=== PATIENT | female | born 1955 | race African-American/Black ===

== ENCOUNTER 2018-06-14 09:55 | Emergency (ER) | payer BC, MEDICARE ==
[~2018-06-14] VITALS: Ht 152.4 cm; Wt 52.2 kg
[2018-06-14 10:48] LABS: INFLUENZA A PATIENT NEGATIVE (NEGATIVE); INFLUENZA B PATIENT NEGATIVE (NEGATIVE)
--- NOTE | 2018-06-14 10:51 | PHYS DOC ---
Past Medical History Past Medical History: Hypertension, Other Additional Past Medical Histor: chronic left knee pain,bld transfusion Past Surgical History: Other Additional Past Surgical Histo: D&C Alcohol Use: None Drug Use: None Adult General Chief Complaint Chief Complaint: COUGH HPI HPI Patient is a 62 year old female with history of hypertension, current smoker, who presents to the ED today complaining of a productive cough with yellow sputum, nasal congestion, symptoms for 2 weeks. Patient is also complaining of subjective fevers. Patient denies any chest pain or shortness of breath. Patient is in the ED with a family member who states patient has followed up with her PCP who did nothing for her. Review of Systems Review of Systems Constitutional: Reports subjective fevers, denies chills [] Eyes: Denies change in visual acuity, redness, or eye pain [] HENT: Reports nasal congestion, denies sore throat [] Respiratory: Reports productive cough, denies shortness of breath [] Cardiovascular: No additional information not addressed in HPI [] GI: Denies abdominal pain, nausea, vomiting, bloody stools or diarrhea [] : Denies dysuria or hematuria [] Musculoskeletal: Denies back pain or joint pain [] Integument: Denies rash or skin lesions [] Neurologic: Denies headache, focal weakness or sensory changes [] All other systems were reviewed and found to be within normal limits, except as documented in this note. Current Medications Current Medications Current Medications Medications (Trade) Dose Ordered Sig/Karen Start Time Stop Time Status Last Admin Dose Admin Albuterol/ Ipratropium (Duoneb) 3 ml 1X ONCE 06/14/18 11:30 06/14/18 11:31 DC 06/14/18 11:47 3 ML Benzonatate (Tessalon Perle) 100 mg 1X ONCE 06/14/18 11:30 06/14/18 11:31 DC Ibuprofen (Motrin) 600 mg 1X ONCE 06/14/18 11:45 06/14/18 11:46 DC Oxycodone/ Acetaminophen (Percocet 7.5/ 325) 1 tab 1X ONCE 06/14/18 11:45 06/14/18 11:46 DC Prednisone (Prednisone) 60 mg 1X ONCE 06/14/18 11:30 06/14/18 11:31 DC Allergies Allergies Allergies Coded Allergies Type Severity Reaction Last Updated Verified Penicillins Allergy Severe anaphlaxis 3/17/19 Yes Physical Exam Physical Exam Constitutional: Well developed, well nourished, no acute distress, non-toxic appearance. [] HENT: Exterior nose is erythematous from wiping. Normocephalic, atraumatic, bilateral external ears normal, oropharynx moist, no oral exudates, patient sounds congested nasally. Mild maxillary and frontal sinus tenderness. Eyes: PERRLA, EOMI, conjunctiva normal, no discharge. [] Neck: Normal range of motion, no tenderness, supple, no stridor. [] Cardiovascular:Heart rate regular rhythm, no murmur [] Lungs & Thorax: Tight chest, patient not moving as much air as expected Abdomen: Bowel sounds normal, soft, no tenderness, no masses, no pulsatile masses. [] Skin: Warm, dry, no erythema, no rash. [] Back: No tenderness, no CVA tenderness. [] Extremities: No tenderness, no cyanosis, no clubbing, ROM intact, no edema. [] Neurologic: Alert and oriented X 3, normal motor function, normal sensory function, no focal deficits noted. [] Psychologic: Affect normal, judgement normal, mood normal. [] Current Patient Data Vital Signs Vital Signs Date Time Temp Pulse Resp B/P (MAP) Pulse Ox O2 Delivery O2 Flow Rate FiO2 06/14/18 11:49 93 Room Air 06/14/18 10:00 99.7 93 20 177/77 (110) 99.7 Lab Values Laboratory Tests Test 06/14/18 10:10 Influenza Type A Antigen Negative (NEGATIVE) Influenza Type B Antigen Negative (NEGATIVE) EKG EKG [] Radiology/Procedures Radiology/Procedures []PROCEDURE: CHEST PA & LATERAL Chest, PA and Lateral: Technique: PA and lateral views of the chest were obtained. History: Cough, congestion. Comparison: 10/14/2016. Findings: The heart and pulmonary vasculature appear within normal limits. The lungs are clear. Tortuous appearing aorta.. Impression: No acute chest process is seen. Electronically signed by: Ron Mcdonald MD (06/14/2018 10:46 AM) [facility] DICTATED and SIGNED BY: RON MCDONALD MD DATE: 06/14/18 1046 Course & Med Decision Making Course & Med Decision Making Pertinent Labs and Imaging studies reviewed. (See chart for details) This is a 62-year-old female patient presenting to the ED today with cough and nasal congestion symptoms for 2 weeks. On arrival to the ED patient's doctor is complaining the primary care doctor was not taking care of patient symptoms. She states he did not do anything for patient. She continues to complain stating she feels will not do anything either. Patient has a slight temperature of 99.7, she has a running nose on physical exam, chest x-ray is negative for any acute findings, her O2 sats were around 93 % on room air, patient states this is a chronic issue likely from COPD from smoking. Negative influenza A or B. I ordered a DuoNeb treatment on patient, ordered Tessalon Perles. Patient's daughter was refusing stating they do not want patient to be given any of his medications, she states she wants patient to be given a cough syrup prescription strength. [facility] shows patient filled RX for oxycodone 7.5mg/325mg 30 day supply around 02/2019. Informed patient and daughter we will not give her any more sedating prescription cough syrups considering she already has oxycodone at home. Recommended wpcs-[id number]-[id number] remedies. Given prescription for Augmentin for sinusitis considering her symptoms have been going on for this long she likely has acute sinusitis. Discharged to home follow-up with the PCP. Remberto Disclaimer Remberto Disclaimer This electronic medical record was generated, in whole or in part, using a voice recognition dictation system. Departure Departure Impression: Primary Impression: Acute sinusitis Additional Impressions: Acute bronchitis Fever Smoking addiction Disposition: HOME, SELF-CARE Condition: STABLE Referrals: ALEXIS CORRALES MD (PCP) Follow-up if the course of this week or next week Patient Instructions: Acute Bronchitis, Sinusitis Additional Instructions: You were evaluated in the emergency room, your chest x-ray was negative for any acute findings. You likely have Acute/ bronchitis and sinusitis. Use the prescribed medications as ordered. Follow-up with your own doctor in the course of this week. Consider smoking cessation Scripts Albuterol Sulfate (VENTOLIN HFA INHALER) 18 Gm Hfa.aer.ad 2 PUFF INH Q4HRS for FOR ASTHMA, #1 INHALER 0 Refills Prov: PRO LLOYD APRN 06/14/18 Prednisone (PREDNISONE) 50 Mg Tablet 1 TAB PO DAILY, #5 TAB Prov: PRO LLOYD APRN 06/14/18 Clindamycin Hcl (CLINDAMYCIN HCL) 300 Mg Capsule 1 CAP PO TID, #30 CAP Prov: PRO LLOYD APRN 06/14/18 Benzonatate (TESSALON PERLE) 100 Mg Capsule 1 CAP PO TID, #30 CAP Prov: PRO LLOYD APRN 06/14/18 Fluticasone Propionate (Flonase Allergy Relief) 9.9 Ml Piercy.susp 2 SPRAYS NS DAILY, #1 BOTTLE Prov: PRO LLOYD APRN 06/14/18 Problem Qualifiers Primary Impression: Acute sinusitis Sinusitis location: maxillary Recurrence: non-recurrent Qualified Codes: J01.00 - Acute maxillary sinusitis, unspecified Additional Impressions: Acute bronchitis Bronchitis organism: unspecified organism Qualified Codes: J20.9 - Acute bronchitis, unspecified Fever Fever type: unspecified Qualified Codes: R50.9 - Fever, unspecified PRO LLOYD APRN Jun 14, 2018 10:50
[2018-06-14] MEDS ORDERED: IPRATRPIUM/ALBUTEROL 0.5/2.5MG 3 ML NEBU. NEB ONE (11:30)
[2018-06-14] MEDS ORDERED: BENZONATATE 100 MG CAPSULE. PO ONE (11:30)
[2018-06-14] MEDS ORDERED: predniSONE 20 MG TABLET PO ONE (11:30)
[2018-06-14] MEDS ORDERED: IBUPROFEN 200 MG TABLET. PO ONE (11:45)
[2018-06-14] MEDS ORDERED: oxyCODONE/APAP 7.5/325 1 TAB TABLET PO ONE (11:45)
[2018-06-14 12:04] VITALS: BP 155/77
[2018-06-14] MEDS ORDERED: PRED50TA PO (12:07)
[2018-06-14] MEDS ORDERED: BENZ100C PO (12:07)
[2018-06-14] MEDS ORDERED: CLIN300C8 PO (12:07)
[2018-06-14] MEDS ORDERED: FLUT9.9S NS (12:07)
[2018-06-14] MEDS ORDERED: VENTOLIN HFA18 GM INH (12:07)
[2018-07-25] MEDS ORDERED: METO50TA6 PO (09:56)
[2018-07-25] MEDS ORDERED: Nicotine 21MG TD (09:56)
[2018-07-25] MEDS ORDERED: ASPI-612 PO (09:56)
[2018-07-25] MEDS ORDERED: METH-364 PO (09:56)
[2018-07-26] MEDS ORDERED: CIPR500T94 PO (11:18)
== END 2018-06-14 12:20 | disposition home or self-care (01) ==
LOC: ER 09:55
DX: J01.00 Acute maxillary sinusitis, unspecified (principal); J20.9 Acute bronchitis, unspecified; I10 Essential (primary) hypertension; G89.29 Other chronic pain; Z88.0 Allergy status to penicillin
CPT/HCPCS: 71046; 87804; 94640; 99284; J7512; J7620

== ENCOUNTER 2018-07-23 12:33 | Inpatient (IN) | payer BC ==
[~2018-07-23] VITALS: Ht 180.3 cm; Wt 57.6 kg
[~2018-07-23 12:33] MED LIST: BENZ100C PO; CLIN300C8 PO; FLUT9.9S NS; PRED50TA PO; VENTOLIN HFA18 GM INH
[2018-07-23] MEDS ORDERED: IV NORMAL SALINE 1000ML BAG 1,000 ML IV ONE ×3 (13:30→19:30)
[2018-07-23 13:36] LABS: BILIRUBIN,URINE SMALL (NEG); CLARITY,URINE TURBID; COLOR,URINE AMBER; NITRITE,URINE NEGATIVE (NEG); PH,URINE 5.5; PROTEIN,URINE 100 mg/dL (NEG-TRACE)
[2018-07-23 13:47] LABS: BACTERIA,URINE MANY /HPF (0-FEW); SQUAMOUS EPITHELIAL CELL,UR FEW /LPF; WBC,URINE TNTC /HPF (0-4)
--- NOTE | 2018-07-23 13:50 | RAD ---
CHEST AP ONLY History: COUGH X 1 MONTH. Comparison with June 14, 2018 The heart size is stable. Aorta remains tortuous. No pneumothorax or pleural effusion. No consolidating infiltrate is identified. Hilar morphology appears stable. IMPRESSION: Stable exam, no acute consolidating infiltrate. Electronically signed by: Hola Roblero MD (07/23/2018 1:47 PM) [facility]
[2018-07-23 14:30] LABS: BASO % 0 % (0-3); EOS % 0 % (0-3); HEMATOCRIT 37.2 % (36.0-47.0); HEMOGLOBIN 12.2 g/dL (12.0-15.5); LYMPH # 1.2 x10^3/uL (1.0-4.8); LYMPH % 10 % (24-48); MEAN CORPUSCULAR HEMOGLOBIN 28 pg (25-35); MEAN CORPUSCULAR HGB CONC 33 g/dL (31-37); MEAN CORPUSCULAR VOLUME 85 fL (79-100); MONO # 1.1 x10^3/uL (0.0-1.1); MONO % 9 % (0-9); NEUT # 9.7 x10^3uL (1.8-7.7); NEUT % 81 % (31-73); PLATELET COUNT 115 x10^3/uL (140-400); RED BLOOD COUNT 4.36 x10^6/uL (3.50-5.40); RED CELL DISTRIBUTION WIDTH 14.6 % (11.5-14.5)
[2018-07-23 14:51] LABS: ALBUMIN 2.4 g/dL (3.4-5.0); ALBUMIN/GLOBULIN RATIO 0.5 (1.0-1.7); CREATININE 1.1 mg/dL (0.6-1.0); GFR 60.7; MAGNESIUM 1.7 mg/dL (1.8-2.4); TOTAL BILIRUBIN 0.8 mg/dL (0.2-1.0); TOTAL PROTEIN 7.5 g/dL (6.4-8.2)
[2018-07-23 14:55] LABS: POTASSIUM 2.6 mmol/L (3.5-5.1)
--- NOTE | 2018-07-23 15:09 | EKG ---
[facility] [address] [place] [address] Test Date: 2018-07-23 Test Time: 13:53:47 Pat Name: JANNET BOBBY Department: Room: Gender: F Clinical Case Manager: : 1955 Requested By: TRACY THOMAS Order Number: [id number] Reading MD: Dillan Keys Measurements Intervals [place] Rate: 128 P: -10 KS: 134 QRS: -41 QRSD: 96 T: 105 QT: 282 QTc: 415 Interpretive Statements SINUS TACHYCARDIA ATRIAL PREMATURE COMPLEX(ES) ABNORMAL LEFT AXIS DEVIATION QRS(T) CONTOUR ABNORMALITY CONSIDER ANTEROSEPTAL MYOCARDIAL DAMAGE T ABNORMALITY IN LATERAL LEADS ABNORMAL ECG RI6.01 Compared to ECG 01/23/2013 20:51:53 T-wave abnormality now present Atrial abnormality no longer present Electronically Signed On 07-29-2018 11:54:26 CDT by Dillan Keys
[2018-07-23] MEDS ORDERED: POTASSIUM CHLORIDE 20 MEQ TABLET.ER. PO ONE ×3 (15:30→17:30)
[2018-07-23] MEDS ORDERED: cefTRIAXone IV Push 1 GM VIAL. IVP ONE (15:30)
[2018-07-23] MEDS ORDERED: fentaNYL PF VIAL 100 MCG/2 ML VIAL IV ONE (16:15)
--- NOTE | 2018-07-23 16:28 | PHYS DOC ---
Past Medical History Past Medical History: Hypertension, Other Additional Past Medical Histor: chronic left knee pain,bld transfusion (TRACY THOMAS APRN) Past Surgical History: Other Additional Past Surgical Histo: D&C (TRACY THOMAS APRN) Alcohol Use: None Drug Use: None (TRACY THOMAS APRN) Adult General Chief Complaint Chief Complaint: DIARRHEA HPI HPI 63 y/o female presents to ER with her dgtr for c/o 1 mo. hx cold like sxs and 2 wk hx of diarrhea, fatigue, and urinary freq. Per dgtr pt's sxs have been gradually worsening she denies pt with change in LOC/mental status or pt w/falls. Pt reports she feels weak but is denying any SOA, CP, abd pain, or LOPES/dizziness. (TRACY THOMAS APRN) Review of Systems Review of Systems Constitutional: Denies fever or chills. Reports gen. fatigue and bodyaches Eyes: Denies change in visual acuity, redness, or eye pain [] HENT: Denies sore throat. Reports clear sinus drainage Respiratory: Denies shortness of breath. Reports nonprod. cough Cardiovascular: Denies CP/palpitations GI: Denies abdominal pain, nausea, vomiting, or bloody stools. Reports diarrhea : Denies dysuria or hematuria. Reports urinary freq. Musculoskeletal: Denies back/neck pain. Denies joint swelling/cramps Integument: Denies rash or skin lesions [] Neurologic: Denies headache, focal weakness or sensory changes. Denies dizziness Endocrine: Denies polyuria or polydipsia [] All other systems were reviewed and found to be within normal limits, except as documented in this note. (TRACY THOMAS APRN) Current Medications Current Medications Current Medications Medications (Trade) Dose Ordered Sig/Karen Start Time Stop Time Status Last Admin Dose Admin Ceftriaxone Sodium (Rocephin) 1 gm 1X ONCE 07/23/18 15:30 07/23/18 15:31 Cancel Potassium Chloride (Klor-Con) 40 meq 1X ONCE 07/23/18 15:30 07/23/18 15:38 DC 07/23/18 16:01 40 MEQ Sodium Chloride 1,000 ml @ 1,000 mls/hr 1X ONCE 07/23/18 13:30 07/23/18 14:29 DC 07/23/18 14:17 1,000 MLS/HR (MARY PERES MD) Allergies Allergies Allergies Coded Allergies Type Severity Reaction Last Updated Verified Penicillins Allergy Severe anaphlaxis 06/14/18 Yes (MARY PERES MD) Physical Exam Physical Exam Constitutional: Fatigued appearance, no acute distress, non-toxic appearance. Smiling during exam/discussion HENT: Normocephalic, atraumatic, bilateral ears normal, mucous membranes pink/dry, no oral exudates, nose normal. [] Eyes: PERRLA, no nystagmus, conjunctiva normal, no discharge. [] Neck: Normal range of motion, no tenderness, supple, no stridor. [] Cardiovascular: Heart rate regular rhythm, no murmur [] Lungs & Thorax: Bilateral breath sounds clear to auscultation- resp. equal/nonlabored Abdomen: Bowel sounds normal, soft- no distention/rigidity, no tenderness, no masses, no pulsatile masses. [] Skin: Warm, dry, no erythema, no rash. [] Back: No tenderness, no CVA tenderness. [] Extremities: No tenderness, no cyanosis, no clubbing, ROM intact, no edema. [] Neurologic: Alert and oriented X 3, normal motor function, normal sensory function, no focal deficits noted. [] Psychologic: Affect normal, judgement normal, mood normal. [] (REFFITT,TRACY Hilliard APRN) Current Patient Data Vital Signs Vital Signs Date Time Temp Pulse Resp B/P (MAP) Pulse Ox O2 Delivery O2 Flow Rate FiO2 07/23/18 16:00 122 149/66 (93) 98 Room Air 07/23/18 12:33 99.1 15 99.1 (MARY PERES MD) Lab Values Laboratory Tests Test 07/23/18 13:13 07/23/18 14:00 Urine Collection Type Void Urine Color [place] Urine Clarity Turbid Urine pH 5.5 Urine Specific [place] 1.015 Urine Protein 100 mg/dL (NEG-TRACE) Urine Glucose (UA) Negative mg/dL (NEG) Urine Ketones (Stick) Trace mg/dL (NEG) Urine Blood Moderate (NEG) Urine Nitrite Negative (NEG) Urine Bilirubin Small (NEG) Urine Urobilinogen Dipstick 1.0 mg/dL (0.2 mg/dL) Urine Leukocyte Esterase Large (NEG) Urine RBC 6-10 /HPF (0-2) Urine WBC Tntc /HPF (0-4) Urine Squamous Epithelial Cells Few /LPF Urine Bacteria Many /HPF (0-FEW) Urine Mucus Marked /LPF White Blood Count 12.0 x10^3/uL (4.0-11.0) H Red Blood Count 4.36 x10^6/uL (3.50-5.40) Hemoglobin 12.2 g/dL (12.0-15.5) Hematocrit 37.2 % (36.0-47.0) Mean Corpuscular Volume 85 fL (79-100) Mean Corpuscular Hemoglobin 28 pg (25-35) Mean Corpuscular Hemoglobin Concent 33 g/dL (31-37) Red Cell Distribution Width 14.6 % (11.5-14.5) H Platelet Count 115 x10^3/uL (140-400) L Neutrophils (%) (Auto) 81 % (31-73) H Lymphocytes (%) (Auto) 10 % (24-48) L Monocytes (%) (Auto) 9 % (0-9) Eosinophils (%) (Auto) 0 % (0-3) Basophils (%) (Auto) 0 % (0-3) Neutrophils # (Auto) 9.7 x10^3uL (1.8-7.7) H Lymphocytes # (Auto) 1.2 x10^3/uL (1.0-4.8) Monocytes # (Auto) 1.1 x10^3/uL (0.0-1.1) Eosinophils # (Auto) 0.0 x10^3/uL (0.0-0.7) Basophils # (Auto) 0.0 x10^3/uL (0.0-0.2) Sodium Level 130 mmol/L (136-145) L Potassium Level 2.6 mmol/L (3.5-5.1) *L Chloride Level 92 mmol/L (98-107) L Carbon Dioxide Level 29 mmol/L (21-32) Anion Gap 9 (6-14) Blood Urea Nitrogen 27 mg/dL (7-20) H Creatinine 1.1 mg/dL (0.6-1.0) H Estimated GFR (Cockcroft-Gault) 60.7 BUN/Creatinine Ratio 25 (6-20) H Glucose Level 124 mg/dL (70-99) H Calcium Level 9.0 mg/dL (8.5-10.1) Magnesium Level 1.7 mg/dL (1.8-2.4) L Total Bilirubin 0.8 mg/dL (0.2-1.0) Aspartate Amino Transferase (AST) 20 U/L (15-37) Alanine Aminotransferase (ALT) 10 U/L (14-59) L Alkaline Phosphatase 79 U/L (46-116) Troponin I Quantitative 0.030 ng/mL (0.000-0.055) Total Protein 7.5 g/dL (6.4-8.2) Albumin 2.4 g/dL (3.4-5.0) L Albumin/Globulin Ratio 0.5 (1.0-1.7) L Thyroid Stimulating Hormone (TSH) < 0.007 uIU/mL (0.358-3.74) L Laboratory Tests 07/23/18 14:00 Laboratory Tests 07/23/18 14:00 Microbiology 07/23/18 Urine Culture - Final, Complete 07/23/18 Urine Culture Result 1 (SUMMER) - Final, Complete 07/23/18 Antimicrobic Susceptibility - Final, Complete (MARY PERES MD) EKG EKG EKG obtained 07/23/18 at [address] Perse Sinus tachycardia vs Afib RVR Rate 128 JESSICA elevation in V2-V3 w/no reciprocal depressions noted nonspecific T wave inversion in leads 1 and aVL Difficult to interpret d/t baseline artifact Repeat EKG obtained 07/23/18 at [address] Peres Similar to prior EKG rhythm- again difficult to interpret with more baseline artifact than the initial EKG. Rate elevated at 163 (TRACY THOMAS APRN) Radiology/Procedures Radiology/Procedures PROCEDURE: CHEST AP ONLY CHEST AP ONLY History: COUGH X 1 MONTH. Comparison with June 14, 2018 The heart size is stable. Aorta remains tortuous. No pneumothorax or pleural effusion. No consolidating infiltrate is identified. Hilar morphology appears stable. IMPRESSION: Stable exam, no acute consolidating infiltrate. Electronically signed by: Hola Roblero MD (07/23/2018 1:47 PM) [facility] DICTATED and SIGNED BY: HOLA ROBLERO MD DATE: 07/23/18 1347 (TRACY THOMAS APRN) Course & Med Decision Making Course & Med Decision Making Pertinent Labs and Imaging studies reviewed. (See chart for details) Test results discussed with pt and her family- discussed admit plans and all agreeable with plan. Pt remains nontoxic in appearance and in no distress during discussion. Will admit to hospitalist for further care. 1620: Spoke with Dr. Miner, hospitalist and discussed patient's case and admit plan. Pt had been evaluated for c/o fatigue/diarrhea. WBCs up at 12.0 K+ 2.6- which was replaced with 40 meq PO K+ in ER; EKG with no acute ST elevation/STEMI and troponin 0.030. Pt had UTI and was tx'd with IV Levaquin and was given IV flds. Chest xray with no acute findings. 1628: RN reports patient's heart rate elevated in the 140s to 160s. EKG is being obtained. Patient is denying any chest pain or shortness of air. On recheck patient has 102.7 temperature. Will start additional IV fluids and given dose of Tylenol for fever. Patient is smiling and in no distress. Patient's age he has considerable artifact questionable for A. fib with RVR per Dr. Peres. Patient had IV fluids started and she has had improvement in her heart rate to 110s. Pt is denying any complaints. Dr. Peres had initially wanted dose of Cardizem for elevated HR however with improved HR then wanted Cardizem held with pt having elevated temp. 1726: Spoke with Dr. Miner, hospitalist again regarding pt's change in HR- will admit to telemetry for further monitoring. (TRACY THOMAS APRN) Course & Med Decision Making The chart sent to me on 08/14/18 for evaluation. (MARY PERES MD) Dragon Disclaimer Dragon Disclaimer This electronic medical record was generated, in whole or in part, using a voice recognition dictation system. (TRACY THOMAS APRN) Departure Departure Impression: Primary Impression: Diarrhea Additional Impressions: Urinary tract infection Tachycardia Disposition: 09 ADMITTED INPATIENT Admitting Physician: Edel Miner (TRACY THOMAS APRN) Condition: STABLE Referrals: BALBIR SOLIZ MD (PCP) Scripts Ciprofloxacin Hcl (CIPRO) 500 Mg Tablet 1 TAB PO BID for uti, #14 TAB Prov: EDEL MINER MD 07/26/18 Metoprolol Tartrate (METOPROLOL TARTRATE) 50 Mg Tablet 50 MG PO BID for FOR HYPERTENSION, #60 TAB 0 Refills Prov: EDEL MINER MD 07/25/18 [Nicotine 21MG] 1 PATCH PATCH No Conflict Check 1 PATCH TD PRN DAILY PRN for SMOKING CESSATION MDD 1, #14 Prov: EDEL MINER MD 07/25/18 Methimazole (METHIMAZOLE) 10 Mg Tablet 10 MG PO BID for hyperthyroidism MDD 1, #60 TAB 2 Refills Prov: EDEL MINER MD 07/25/18 Aspirin (ASPIRIN EC) 81 Mg Tablet. 81 MG PO DAILYWBKFT for primary prevention MDD 1 for 60 Days, #60 TAB.SR Prov: EDEL MINER MD 07/25/18 Problem Qualifiers TRACY THOMAS APRN Jul 23, 2018 16:28 MARY PERES MD August 14, 2018 06:05
[2018-07-23] MEDS ORDERED: ACETAMINOPHEN 325 MG TABLET. PO ONE (16:30)
[2018-07-23] MEDS ORDERED: ONDANSETRON PF 4 MG/2 ML VIAL. ONE (16:39)
[2018-07-23] MEDS ORDERED: dilTIAZem IV PUSH 25 MG/5 ML VIAL ONE (16:40)
[2018-07-23] MEDS ORDERED: dilTIAZem IV PUSH 25 MG/5 ML VIAL IVP ONE (16:45)
[2018-07-23] MEDS ORDERED: NICOTINE 21MG PATCH. TD PRN (17:15)
[2018-07-23] MEDS ORDERED: TEMAZEPAM 7.5 MG CAPSULE PO PRN (17:15)
[2018-07-23] MEDS ORDERED: LOPERAMIDE 2 MG CAPSULE PO PRN (17:15)
--- NOTE | 2018-07-23 17:21 | PDOC1 ---
History and Physical Date of Admission Date of Admission DATE: 07/23/18 TIME: 17:16 Identification/Chief Complaint Chief Complaint Diarrhea for 2 weeks Source Source: Caregiver, Chart review, Patient History of Present Illness History of Present Illness NOt The best historian, 63-year-old female with history of asthma on inhalers. Brought in by younger family member because of diarrhea for 2 weeks, very weak. Admitted because of critical hypokalemia 2.6 hyponatremia 130 with leukocytosis 12. So far no diarrhea at ER. NO fevers. No emesis. Thought to have UTI by ER mid-level. She does smoke, trying to quit, mentions history of CHF but I do not see meds for CHF in home meds Crash cart at ER almost went to a heart rate of 170s, but after Cardizem converted to sinus tachycardia 130s. No known arrhythmia problems as per family relay She is not vomiting, interested to eat Hyperactive bowel sounds on exam Past Medical History Pulmonary: Asthma, Bronchitis Past Surgical History Past Surgical History: No pertinent history Family History Family History: Hypertension Social History Smoke: <1 pack per day ALCOHOL: none Drugs: None Current Medications Current Medications Current Medications Sodium Chloride 1,000 ml @ 1,000 mls/hr 1X ONCE IV Last administered on 06/30 08/16at 14:17; Start 07/23/18 at 13:30; Stop 07/23/18 at 14:29; Status DC Potassium Chloride (Klor-Con) 40 meq 1X ONCE PO Last administered on 07/23/18at 16:01; Start 07/23/18 at 15:30; Stop 07/23/18 at 15:38; Status DC Ceftriaxone Sodium (Rocephin) 1 gm 1X ONCE IVP ; Start 07/23/18 at 15:30; Stop 07/23/18 at 15:31; Status Cancel Levofloxacin/ Dextrose 150 ml @ 100 mls/hr 1X ONCE IV Last administered on 07/23/18at 16:51; Start 07/23/18 at 16:15; Stop 07/23/18 at 17:44 Sodium Chloride 1,000 ml @ 125 mls/hr 1X ONCE IV ; Start 07/23/18 at 16:15; Stop 07/24/18 at 00:14 Fentanyl Citrate (Fentanyl 2ml Vial) 25 mcg 1X ONCE IV Last administered on 07/23/18at 16:56; Start 07/23/18 at 16:15; Stop 07/23/18 at 16:16; Status DC Acetaminophen (Tylenol) 650 mg 1X ONCE PO Last administered on 07/23/18at 16:49; Start 07/23/18 at 16:30; Stop 07/23/18 at 16:39; Status DC Diltiazem HCl (Cardizem Iv Push) 10 mg 1X ONCE IVP ; Start 07/23/18 at 16:45; Stop 07/23/18 at 16:46; Status DC Ondansetron HCl (Zofran) 4 mg STK-MED ONCE .ROUTE ; Start 07/23/18 at 16:39; Stop 07/23/18 at 16:40; Status DC Diltiazem HCl (Cardizem Iv Push) 25 mg STK-MED ONCE .ROUTE ; Start 07/23/18 at 16:40; Stop 07/23/18 at 16:41; Status DC Potassium Chloride (Klor-Con) 40 meq 1X ONCE PO ; Start 07/23/18 at 17:30; Stop 07/23/18 at 17:31 Potassium Chloride (Klor-Con) 20 meq 1X ONCE PO ; Start 07/23/18 at 17:30; Stop 07/23/18 at 17:31 Loperamide HCl (Imodium) 2 mg PRN Q15MIN PRN PO DIARRHEA; Start 07/23/18 at 17:15 Active Scripts Active Ventolin Hfa Inhaler (Albuterol Sulfate) 18 Gm Hfa.aer.ad 2 Puff INH Q4HRS Prednisone 50 Mg Tablet 1 Tab PO DAILY Clindamycin Hcl 300 Mg Capsule 1 Cap PO TID Tessalon Perle (Benzonatate) 100 Mg Capsule 1 Cap PO TID Flonase Allergy Relief (Fluticasone Propionate) 9.9 Ml [place].susp 2 Sprays NS DAILY Allergies Allergies: Coded Allergies: Penicillins (Verified Allergy, Severe, anaphlaxis, 06/14/18) ROS Review of System As per history of present illness, the rest of ROS 14 point negative Physical Exam General: Alert, Oriented X3, Cooperative, No acute distress, Other (sallow skin, decreased skin turgor, senile skin turgor, minimal subcutaneous tissue) HEENT: Atraumatic, PERRLA, EOMI Lungs: Clear to auscultation, Normal air movement Heart: S1S2, RRR, no thrills, no rubs, no gallops, no murmurs Cardiovascular: S1 Abdomen: Soft, No tenderness, No hepatosplenomegaly, No masses, Other (hyper active bowel sounds) Rectal Exam: not examined Extremities: No clubbing, No cyanosis, No edema, Normal pulses, No tenderness/swelling Skin: No rashes, No breakdown, No significant lesion Neuro: Normal gait, Normal speech, Strength at 5/5 X4 ext, Normal tone, Sensation intact, Cranial nerves 3-12 NL, Reflexes 2+ Psych/Mental Status: Mental status NL, Mood NL Vitals Vitals Vital Signs Date Time Temp Pulse Resp B/P (MAP) Pulse Ox O2 Delivery O2 Flow Rate FiO2 07/23/18 16:56 28 92 Room Air 07/23/18 12:33 99.1 108 144/66 (92) 99.1 Labs Labs Laboratory Tests Test 07/23/18 13:13 07/23/18 14:00 Urine Collection Type Void Urine Color [place] Urine Clarity Turbid Urine pH 5.5 Urine Specific [place] 1.015 Urine Protein 100 mg/dL (NEG-TRACE) Urine Glucose (UA) Negative mg/dL (NEG) Urine Ketones (Stick) Trace mg/dL (NEG) Urine Blood Moderate (NEG) Urine Nitrite Negative (NEG) Urine Bilirubin Small (NEG) Urine Urobilinogen Dipstick 1.0 mg/dL (0.2 mg/dL) Urine Leukocyte Esterase Large (NEG) Urine RBC 6-10 /HPF (0-2) Urine WBC Tntc /HPF (0-4) Urine Squamous Epithelial Cells Few /LPF Urine Bacteria Many /HPF (0-FEW) Urine Mucus Marked /LPF White Blood Count 12.0 x10^3/uL (4.0-11.0) Red Blood Count 4.36 x10^6/uL (3.50-5.40) Hemoglobin 12.2 g/dL (12.0-15.5) Hematocrit 37.2 % (36.0-47.0) Mean Corpuscular Volume 85 fL (79-100) Mean Corpuscular Hemoglobin 28 pg (25-35) Mean Corpuscular Hemoglobin Concent 33 g/dL (31-37) Red Cell Distribution Width 14.6 % (11.5-14.5) Platelet Count 115 x10^3/uL (140-400) Neutrophils (%) (Auto) 81 % (31-73) Lymphocytes (%) (Auto) 10 % (24-48) Monocytes (%) (Auto) 9 % (0-9) Eosinophils (%) (Auto) 0 % (0-3) Basophils (%) (Auto) 0 % (0-3) Neutrophils # (Auto) 9.7 x10^3uL (1.8-7.7) Lymphocytes # (Auto) 1.2 x10^3/uL (1.0-4.8) Monocytes # (Auto) 1.1 x10^3/uL (0.0-1.1) Eosinophils # (Auto) 0.0 x10^3/uL (0.0-0.7) Basophils # (Auto) 0.0 x10^3/uL (0.0-0.2) Sodium Level 130 mmol/L (136-145) Potassium Level 2.6 mmol/L (3.5-5.1) Chloride Level 92 mmol/L (98-107) Carbon Dioxide Level 29 mmol/L (21-32) Anion Gap 9 (6-14) Blood Urea Nitrogen 27 mg/dL (7-20) Creatinine 1.1 mg/dL (0.6-1.0) Estimated GFR (Cockcroft-Gault) 60.7 BUN/Creatinine Ratio 25 (6-20) Glucose Level 124 mg/dL (70-99) Calcium Level 9.0 mg/dL (8.5-10.1) Magnesium Level 1.7 mg/dL (1.8-2.4) Total Bilirubin 0.8 mg/dL (0.2-1.0) Aspartate Amino Transf (AST/SGOT) 20 U/L (15-37) Alanine Aminotransferase (ALT/SGPT) 10 U/L (14-59) Alkaline Phosphatase 79 U/L (46-116) Troponin I Quantitative 0.030 ng/mL (0.000-0.055) Total Protein 7.5 g/dL (6.4-8.2) Albumin 2.4 g/dL (3.4-5.0) Albumin/Globulin Ratio 0.5 (1.0-1.7) Laboratory Tests Test 07/23/18 13:13 07/23/18 14:00 Urine Collection Type Void Urine Color [place] Urine Clarity Turbid Urine pH 5.5 Urine Specific [place] 1.015 Urine Protein 100 mg/dL (NEG-TRACE) Urine Glucose (UA) Negative mg/dL (NEG) Urine Ketones (Stick) Trace mg/dL (NEG) Urine Blood Moderate (NEG) Urine Nitrite Negative (NEG) Urine Bilirubin Small (NEG) Urine Urobilinogen Dipstick 1.0 mg/dL (0.2 mg/dL) Urine Leukocyte Esterase Large (NEG) Urine RBC 6-10 /HPF (0-2) Urine WBC Tntc /HPF (0-4) Urine Squamous Epithelial Cells Few /LPF Urine Bacteria Many /HPF (0-FEW) Urine Mucus Marked /LPF White Blood Count 12.0 x10^3/uL (4.0-11.0) Red Blood Count 4.36 x10^6/uL (3.50-5.40) Hemoglobin 12.2 g/dL (12.0-15.5) Hematocrit 37.2 % (36.0-47.0) Mean Corpuscular Volume 85 fL (79-100) Mean Corpuscular Hemoglobin 28 pg (25-35) Mean Corpuscular Hemoglobin Concent 33 g/dL (31-37) Red Cell Distribution Width 14.6 % (11.5-14.5) Platelet Count 115 x10^3/uL (140-400) Neutrophils (%) (Auto) 81 % (31-73) Lymphocytes (%) (Auto) 10 % (24-48) Monocytes (%) (Auto) 9 % (0-9) Eosinophils (%) (Auto) 0 % (0-3) Basophils (%) (Auto) 0 % (0-3) Neutrophils # (Auto) 9.7 x10^3uL (1.8-7.7) Lymphocytes # (Auto) 1.2 x10^3/uL (1.0-4.8) Monocytes # (Auto) 1.1 x10^3/uL (0.0-1.1) Eosinophils # (Auto) 0.0 x10^3/uL (0.0-0.7) Basophils # (Auto) 0.0 x10^3/uL (0.0-0.2) Sodium Level 130 mmol/L (136-145) Potassium Level 2.6 mmol/L (3.5-5.1) Chloride Level 92 mmol/L (98-107) Carbon Dioxide Level 29 mmol/L (21-32) Anion Gap 9 (6-14) Blood Urea Nitrogen 27 mg/dL (7-20) Creatinine 1.1 mg/dL (0.6-1.0) Estimated GFR (Cockcroft-Gault) 60.7 BUN/Creatinine Ratio 25 (6-20) Glucose Level 124 mg/dL (70-99) Calcium Level 9.0 mg/dL (8.5-10.1) Magnesium Level 1.7 mg/dL (1.8-2.4) Total Bilirubin 0.8 mg/dL (0.2-1.0) Aspartate Amino Transf (AST/SGOT) 20 U/L (15-37) Alanine Aminotransferase (ALT/SGPT) 10 U/L (14-59) Alkaline Phosphatase 79 U/L (46-116) Troponin I Quantitative 0.030 ng/mL (0.000-0.055) Total Protein 7.5 g/dL (6.4-8.2) Albumin 2.4 g/dL (3.4-5.0) Albumin/Globulin Ratio 0.5 (1.0-1.7) VTE Prophylaxis Ordered VTE Prophylaxis Devices: Yes VTE Pharmacological Prophylaxi: Yes Assessment/Plan Assessment/Plan Diarrhea 2 weeks Critical hypokalemia sec to GI loss Hyponatremia secondary to GI loss Leukocytosis/SIRS POA with organ dysfunction (NEGRITO) AK I VMN from GI loss Smoker Asthma bronchitis- chronic stable NSVT - AT ER sec to elyte abN likely - check ca, mag, tsh - replace K aggressively Sinus tachycardia PLAN: ER gave 40 meqs KCl - I am giving 60 more Keep on telemetry, CVC floor, admit 2 midnights Consult cardiology Check mag TSH CA and replace K PT/OT I have reconciled home meds Normal saline for the hyponatremia Recheck labs tomorrow and watch out for worsening leukocytosis, hypokalemia, and hyponatremia Full code Fall risk Okay to eat-not having emesis Discussed with family member at bedside Seen at ER SANJUANITA PEÑA MD Jul 23, 2018 17:21
[2018-07-23] MEDS ORDERED: ACETAMINOPHEN 325 MG TABLET. PO PRN (18:00)
[2018-07-23] MEDS ORDERED: ALBUTEROL SULFATE 2.5 MG/3 ML NEBU. ONE (18:07)
[2018-07-23] MEDS ORDERED: MAGNESIUM SULFATE 1GM 100 ML IV ONE (19:00)
[2018-07-23 19:20] VITALS: BP 155/68
[2018-07-23] MEDS ORDERED: NON FORMULARY ITEM (Albuterol Sulfate (Ventolin Hfa Inhaler) 2 PUFF) INH SCH (20:00)
[2018-07-23] MEDS: ALBUTEROL SULFATE 2.5 MG/3 ML NEBU. NEB SCH (20:29)
--- NOTE | 2018-07-23 21:42 | NUR ---
Patient arrived to unit at 1850 and orientated to room, bathroom, call light, and bed controls. Patient at 1945 was having a sustained HR of [address] Bowens and reviewed labs and medications and continue to monitor patient.
[2018-07-23] MEDS: HYDROcodone/APAP 5/325MG 1 TAB TABLET PO PRN (22:09)
[2018-07-23 22:37] VITALS: BP_SYST 121; BP_SYST 144; BP_DIAS 59; BP_DIAS 78
[2018-07-24 02:45] VITALS: BP 117/57
[2018-07-24] MEDS: ALBUTEROL SULFATE 2.5 MG/3 ML NEBU. NEB SCH ×7 (04:32→23:54)
[2018-07-24 05:33] LABS: GFR 67.8; POTASSIUM 3.2 mmol/L (3.5-5.1)
[2018-07-24 05:40] LABS: BASO % 0 % (0-3); EOS % 0 % (0-3); HEMATOCRIT 31.2 % (36.0-47.0); HEMOGLOBIN 10.4 g/dL (12.0-15.5); LYMPH # 0.9 x10^3/uL (1.0-4.8); LYMPH % 8 % (24-48); MEAN CORPUSCULAR HEMOGLOBIN 28 pg (25-35); MEAN CORPUSCULAR HGB CONC 33 g/dL (31-37); MEAN CORPUSCULAR VOLUME 85 fL (79-100); MONO # 1.1 x10^3/uL (0.0-1.1); MONO % 10 % (0-9); NEUT # 9.3 x10^3uL (1.8-7.7); NEUT % 82 % (31-73); PLATELET COUNT 84 x10^3/uL (140-400); RED BLOOD COUNT 3.66 x10^6/uL (3.50-5.40); RED CELL DISTRIBUTION WIDTH 15.2 % (11.5-14.5); WHITE BLOOD COUNT 11.4 x10^3/uL (4.0-11.0)
[2018-07-24 06:30] LABS: FREE T4 6.15 ng/dL (0.76-1.46)
[2018-07-24 07:22] VITALS: BP 119/57
[2018-07-24] MEDS: FLUTICASONE 50MCG/NASAL SPRAY 16GM BOTTLE. NS SCH (07:52)
[2018-07-24] MEDS: HYDROcodone/APAP 5/325MG 1 TAB TABLET PO PRN ×2 (07:53→17:38)
[2018-07-24] MEDS ORDERED: POTASSIUM CHLORIDE 20 MEQ TABLET.ER. PO ONE (08:30)
--- NOTE | 2018-07-24 09:03 | PDOC2 ---
CHANELL MCCALL [employer] CLE[employer]ER 07/24/18 0903: CARDIAC CONSULT DATE OF CONSULT Date of Consult DATE: 07/24/18 TIME: 09:02 REASON FOR CONSULT Reason for Consult: VT in ER, transient REFERRING PHYSICIAN Referring Physician: Dr. Miner SOURCE Source: Chart review, Patient HISTORY OF PRESENT ILLNESS HISTORY OF PRESENT ILLNESS This is a 63 yo female who presented secondary to ongoing diarrhea for the last week. Initial labs with severe hypokalemia and hypomagnesemia. Patient became tachycardic in ED with HR in the 160's. AFIB wtih RVR versus SVT. No report of NSVT. Cardizem bolus was given and HR rate improved. No additional HR control therapy was ordered. Fluid bolus in ED. This morning, patient noted to be ta chycardiac on telemetry. TSH undetectable. Free T3/T4 elevated. Patient denies any chest pain, palpitations, dizziness, diaphoresis, SOA, or nausea/vomiting. No further diarrhea since admission. H/o CHF, does not have primary brake holder. PAST MEDICAL HISTORY Cardiovascular: CHF, HTN Pulmonary: Asthma, Pneumonia CENTRAL NERVOUS SYSTEM: Seizure GI: No pertinent hx Heme/Onc: No pertinent hx Hepatobiliary: No pertinent hx Psych: Anxiety, Depression Musculoskeletal: low back pain, Osteoarthritis Rheumatologic: No pertinent hx Infectious disease: No pertinent hx ENT: No pertinent hx Renal/: No pertinent hx Endocrine: No pertinent hx Dermatology: No pertinent hx PAST SURGICAL HISTORY Past Surgical History: Tubal Ligation FAMILY HISTORY Family History: Hypertension SOCIAL HISTORY Smoke: Quit (1 week ago) ALCOHOL: none Drugs: None Lives: with Family CURRENT MEDICATIONS CURRENT MEDICATIONS Current Medications Medications (Trade) Dose Ordered Sig/Karen Route PRN Reason Start Time Stop Time Status Last Admin Dose Admin Sodium Chloride 1,000 ml @ 1,000 mls/hr 1X ONCE IV 07/23/18 13:30 07/23/18 14:29 DC 07/23/18 14:17 Potassium Chloride (Klor-Con) 40 meq 1X ONCE PO 07/23/18 15:30 07/23/18 15:38 DC 07/23/18 16:01 Levofloxacin/ Dextrose 150 ml @ 100 mls/hr 1X ONCE IV 07/23/18 16:15 07/23/18 17:44 DC 07/23/18 16:51 Fentanyl Citrate (Fentanyl 2ml Vial) 25 mcg 1X ONCE IV 07/23/18 16:15 07/23/18 16:16 DC 07/23/18 16:56 Acetaminophen (Tylenol) 650 mg 1X ONCE PO 07/23/18 16:30 07/23/18 16:39 DC 07/23/18 16:49 Potassium Chloride (Klor-Con) 40 meq 1X ONCE PO 07/23/18 17:30 07/23/18 17:31 DC 07/23/18 18:39 Potassium Chloride (Klor-Con) 20 meq 1X ONCE PO 07/23/18 17:30 07/23/18 17:31 DC 07/23/18 18:31 Fluticasone Propionate (Flonase) 2 spray DAILY NS 07/24/18 09:00 07/24/18 07:52 Albuterol Sulfate (Ventolin Neb Soln) 2.5 mg Q4HRS NEB 07/23/18 20:00 07/24/18 08:03 Magnesium Sulfate/ Dextrose 100 ml @ 100 mls/hr 1X ONCE IV 07/23/18 19:00 07/23/18 19:59 DC 07/23/18 19:13 Sodium Chloride 1,000 ml @ 1,000 mls/hr 1X ONCE IV 07/23/18 19:30 07/23/18 20:29 DC 07/23/18 20:31 Acetaminophen/ Hydrocodone Bitart (Lortab 5/325) 1 tab PRN Q6HRS PRN PO MODERATE PAIN 07/23/18 21:45 07/24/18 07:53 ALLERGIES ALLERGIES: Coded Allergies: Penicillins (Verified Allergy, Severe, anaphlaxis, 06/14/18) ROS Review of System 14 point ROS conducted with pertinent positives noted above in HPI. PHYSICAL EXAM General: Alert, Oriented X3, Cooperative, No acute distress HEENT: Atraumatic Lungs: Clear to auscultation, Normal air movement, Other (tele ST) Heart: Normal S1, Normal S2, Other (ST) Abdomen: Soft Extremities: No edema, Normal pulses Skin: No significant lesion Neuro: Normal speech, Sensation intact Psych/Mental Status: Mental status NL, Mood NL MUSCULOSKELETAL: No swelling VITALS VITALS Vital Signs Date Time Temp Pulse Resp B/P (MAP) Pulse Ox O2 Delivery O2 Flow Rate FiO2 07/24/18 08:04 95 Room Air 07/24/18 07:22 98.5 124 18 119/57 (77) 98.5 07/23/18 19:50 2.0 LABS Lab: Laboratory Tests Test 07/23/18 13:13 07/23/18 14:00 07/24/18 04:00 Urine Collection Type Void Urine Color [place] Urine Clarity Turbid Urine pH 5.5 Urine Specific [place] 1.015 Urine Protein 100 mg/dL (NEG-TRACE) Urine Glucose (UA) Negative mg/dL (NEG) Urine Ketones (Stick) Trace mg/dL (NEG) Urine Blood Moderate (NEG) Urine Nitrite Negative (NEG) Urine Bilirubin Small (NEG) Urine Urobilinogen Dipstick 1.0 mg/dL (0.2 mg/dL) Urine Leukocyte Esterase Large (NEG) Urine RBC 6-10 /HPF (0-2) Urine WBC Tntc /HPF (0-4) Urine Squamous Epithelial Cells Few /LPF Urine Bacteria Many /HPF (0-FEW) Urine Mucus Marked /LPF White Blood Count 12.0 x10^3/uL (4.0-11.0) 11.4 x10^3/uL (4.0-11.0) Red Blood Count 4.36 x10^6/uL (3.50-5.40) 3.66 x10^6/uL (3.50-5.40) Hemoglobin 12.2 g/dL (12.0-15.5) 10.4 g/dL (12.0-15.5) Hematocrit 37.2 % (36.0-47.0) 31.2 % (36.0-47.0) Mean Corpuscular Volume 85 fL (79-100) 85 fL (79-100) Mean Corpuscular Hemoglobin 28 pg (25-35) 28 pg (25-35) Mean Corpuscular Hemoglobin Concent 33 g/dL (31-37) 33 g/dL (31-37) Red Cell Distribution Width 14.6 % (11.5-14.5) 15.2 % (11.5-14.5) Platelet Count 115 x10^3/uL (140-400) 84 x10^3/uL (140-400) Neutrophils (%) (Auto) 81 % (31-73) 82 % (31-73) Lymphocytes (%) (Auto) 10 % (24-48) 8 % (24-48) Monocytes (%) (Auto) 9 % (0-9) 10 % (0-9) Eosinophils (%) (Auto) 0 % (0-3) 0 % (0-3) Basophils (%) (Auto) 0 % (0-3) 0 % (0-3) Neutrophils # (Auto) 9.7 x10^3uL (1.8-7.7) 9.3 x10^3uL (1.8-7.7) Lymphocytes # (Auto) 1.2 x10^3/uL (1.0-4.8) 0.9 x10^3/uL (1.0-4.8) Monocytes # (Auto) 1.1 x10^3/uL (0.0-1.1) 1.1 x10^3/uL (0.0-1.1) Eosinophils # (Auto) 0.0 x10^3/uL (0.0-0.7) 0.0 x10^3/uL (0.0-0.7) Basophils # (Auto) 0.0 x10^3/uL (0.0-0.2) 0.0 x10^3/uL (0.0-0.2) Sodium Level 130 mmol/L (136-145) 135 mmol/L (136-145) Potassium Level 2.6 mmol/L (3.5-5.1) 3.2 mmol/L (3.5-5.1) Chloride Level 92 mmol/L (98-107) 103 mmol/L (98-107) Carbon Dioxide Level 29 mmol/L (21-32) 26 mmol/L (21-32) Anion Gap 9 (6-14) 6 (6-14) Blood Urea Nitrogen 27 mg/dL (7-20) 25 mg/dL (7-20) Creatinine 1.1 mg/dL (0.6-1.0) 1.0 mg/dL (0.6-1.0) Estimated GFR (Cockcroft-Gault) 60.7 67.8 BUN/Creatinine Ratio 25 (6-20) Glucose Level 124 mg/dL (70-99) 117 mg/dL (70-99) Calcium Level 9.0 mg/dL (8.5-10.1) 8.0 mg/dL (8.5-10.1) Magnesium Level 1.7 mg/dL (1.8-2.4) Total Bilirubin 0.8 mg/dL (0.2-1.0) Aspartate Amino Transf (AST/SGOT) 20 U/L (15-37) Alanine Aminotransferase (ALT/SGPT) 10 U/L (14-59) Alkaline Phosphatase 79 U/L (46-116) Troponin I Quantitative 0.030 ng/mL (0.000-0.055) Total Protein 7.5 g/dL (6.4-8.2) Albumin 2.4 g/dL (3.4-5.0) Albumin/Globulin Ratio 0.5 (1.0-1.7) Thyroid Stimulating Hormone (TSH) < 0.007 uIU/mL (0.358-3.74) Free Thyroxine 6.15 ng/dL (0.76-1.46) Free Triiodothyronine (T3) pg/mL 7.78 pg/mL (2.18-3.98) ASSESSMENT/PLAN ASSESSMENT/PLAN 1. Diarrhea, persistent x1 week. 2. Hyperthyroidism; new. 3. Tachycardia, sinus. Reactive in the setting of electrolyte disturbance and hyperthyroidism. No clear AFIB noted 4. NSVT; 17 beat NSVT this afternoon 5. Chronic CHF; compensated 6. Hypertension; controlled 7. Hypokalemia; GI losses. replaced 8. Hypomagnesemia 9. Leukocytosis, fevers, UTI Recommendations Metoprolol IV x1 now Will add scheduled metoprolol for rate control Echo to assess LV systolic function Replace K Recheck Mg- replace as warranted Keep K >4.0 and Mg >2.0 Further recommendations pending above. FREDA LANDON MD 07/24/18 1728: CARDIAC CONSULT ASSESSMENT/PLAN ASSESSMENT/PLAN Pt. seen and examined. Agree with above G[employer]ER note. Her EKG looks like transient atrial tachycardia as she has clear SR when not tachycardic. Cannot rule out atrial fib/flutter. Given elevated TSH, this is likely reactive. Check echo to ensure stable LV function. Continue metoprolol. Supportive care. CHANELL MCCALL APRN Jul 24, 2018 09:03 FREDA LANDON MD Jul 24, 2018 17:28
[2018-07-24] MEDS: methIMAzole 10 MG TABLET PO SCH ×2 (09:07→20:40)
[2018-07-24] MEDS ORDERED: METOPROLOL TARTRATE 5 MG/5 ML VIAL. IVP ONE (10:00)
--- NOTE | 2018-07-24 10:16 | PDOC ---
PROGRESS NOTES Chief Complaint Chief Complaint Hyperthyroidism with undetectable TSH and appropriately elevated T3-T4 Multinodular goiter on wet read thyroid ultrasound Nonsustained V. tach with sinus tachycardia at ER-new Diarrhea, acute on chronic for 2 weeks Weight loss Cachexia Critical hypokalemia 2.6 on admission Hypomagnesemia Full code Generalized weakness History of Present Illness History of Present Illness All her labs and workup and course point to HYPERthyroidism as a cause of her symptoms Now family members tell me she has been having diarrhea and weight loss Her electrolytes on admission showed 2.6K after my 100 mEq of replacement yesterday - up to 3.2 today Magnesium slightly low 1.7-I have replaced with 1 mag IV I did order thyroid ultrasound and discussed with tech, showing huge right inferior pole thyroid nodule and smaller ones on the left These are all news to the patient and family Patient otherwise does not complain of any chest pain or SOA. Cardiology also consulted for the nonsustained V. tach at the ER Plan Thyroid ultrasound, consult GS regarding this functioning thyroid nodule Replace potassium furthermore Replace mag when necessary PT OT High fall risk Follow cards recommendations-ordered echo Repeat TSH T3-T4 level by PCP in 6 weeks' time START Tapazole 10 by mouth twice a day nutrition consult for weight loss and cachexia Discussed with multiple family members at bedside Vitals Vitals Vital Signs Date Time Temp Pulse Resp B/P (MAP) Pulse Ox O2 Delivery O2 Flow Rate FiO2 07/24/18 09:49 140 142/75 07/24/18 09:02 Room Air 07/24/18 08:04 95 07/24/18 07:22 98.5 18 98.5 07/23/18 19:50 2.0 Physical Exam General: Alert, Oriented X3, Cooperative, No acute distress, Other (sallow skin, decreased skin turgor, senile skin turgor, minimal subcutaneous tissue) Abdomen: Soft, No tenderness, No hepatosplenomegaly, No masses, Other (hyper active bowel sounds) Extremities: No clubbing, No cyanosis, No edema, Normal pulses, No tenderness/swelling Skin: No rashes, No breakdown, No significant lesion Labs LABS Laboratory Tests Test 07/23/18 13:13 07/23/18 14:00 07/24/18 04:00 Urine Collection Type Void Urine Color [place] Urine Clarity Turbid Urine pH 5.5 Urine Specific [place] 1.015 Urine Protein 100 mg/dL (NEG-TRACE) Urine Glucose (UA) Negative mg/dL (NEG) Urine Ketones (Stick) Trace mg/dL (NEG) Urine Blood Moderate (NEG) Urine Nitrite Negative (NEG) Urine Bilirubin Small (NEG) Urine Urobilinogen Dipstick 1.0 mg/dL (0.2 mg/dL) Urine Leukocyte Esterase Large (NEG) Urine RBC 6-10 /HPF (0-2) Urine WBC Tntc /HPF (0-4) Urine Squamous Epithelial Cells Few /LPF Urine Bacteria Many /HPF (0-FEW) Urine Mucus Marked /LPF White Blood Count 12.0 x10^3/uL (4.0-11.0) 11.4 x10^3/uL (4.0-11.0) Red Blood Count 4.36 x10^6/uL (3.50-5.40) 3.66 x10^6/uL (3.50-5.40) Hemoglobin 12.2 g/dL (12.0-15.5) 10.4 g/dL (12.0-15.5) Hematocrit 37.2 % (36.0-47.0) 31.2 % (36.0-47.0) Mean Corpuscular Volume 85 fL (79-100) 85 fL (79-100) Mean Corpuscular Hemoglobin 28 pg (25-35) 28 pg (25-35) Mean Corpuscular Hemoglobin Concent 33 g/dL (31-37) 33 g/dL (31-37) Red Cell Distribution Width 14.6 % (11.5-14.5) 15.2 % (11.5-14.5) Platelet Count 115 x10^3/uL (140-400) 84 x10^3/uL (140-400) Neutrophils (%) (Auto) 81 % (31-73) 82 % (31-73) Lymphocytes (%) (Auto) 10 % (24-48) 8 % (24-48) Monocytes (%) (Auto) 9 % (0-9) 10 % (0-9) Eosinophils (%) (Auto) 0 % (0-3) 0 % (0-3) Basophils (%) (Auto) 0 % (0-3) 0 % (0-3) Neutrophils # (Auto) 9.7 x10^3uL (1.8-7.7) 9.3 x10^3uL (1.8-7.7) Lymphocytes # (Auto) 1.2 x10^3/uL (1.0-4.8) 0.9 x10^3/uL (1.0-4.8) Monocytes # (Auto) 1.1 x10^3/uL (0.0-1.1) 1.1 x10^3/uL (0.0-1.1) Eosinophils # (Auto) 0.0 x10^3/uL (0.0-0.7) 0.0 x10^3/uL (0.0-0.7) Basophils # (Auto) 0.0 x10^3/uL (0.0-0.2) 0.0 x10^3/uL (0.0-0.2) Sodium Level 130 mmol/L (136-145) 135 mmol/L (136-145) Potassium Level 2.6 mmol/L (3.5-5.1) 3.2 mmol/L (3.5-5.1) Chloride Level 92 mmol/L (98-107) 103 mmol/L (98-107) Carbon Dioxide Level 29 mmol/L (21-32) 26 mmol/L (21-32) Anion Gap 9 (6-14) 6 (6-14) Blood Urea Nitrogen 27 mg/dL (7-20) 25 mg/dL (7-20) Creatinine 1.1 mg/dL (0.6-1.0) 1.0 mg/dL (0.6-1.0) Estimated GFR (Cockcroft-Gault) 60.7 67.8 BUN/Creatinine Ratio 25 (6-20) Glucose Level 124 mg/dL (70-99) 117 mg/dL (70-99) Calcium Level 9.0 mg/dL (8.5-10.1) 8.0 mg/dL (8.5-10.1) Magnesium Level 1.7 mg/dL (1.8-2.4) Total Bilirubin 0.8 mg/dL (0.2-1.0) Aspartate Amino Transf (AST/SGOT) 20 U/L (15-37) Alanine Aminotransferase (ALT/SGPT) 10 U/L (14-59) Alkaline Phosphatase 79 U/L (46-116) Troponin I Quantitative 0.030 ng/mL (0.000-0.055) Total Protein 7.5 g/dL (6.4-8.2) Albumin 2.4 g/dL (3.4-5.0) Albumin/Globulin Ratio 0.5 (1.0-1.7) Thyroid Stimulating Hormone (TSH) < 0.007 uIU/mL (0.358-3.74) Free Thyroxine 6.15 ng/dL (0.76-1.46) Free Triiodothyronine (T3) pg/mL 7.78 pg/mL (2.18-3.98) Review of Systems Review of Systems Diarrhea, the rest of ROS 14 point negative Assessment and Plan Assessmemt and Plan Problems Medical Problems: (1) Diarrhea Status: Acute (2) Tachycardia Status: Acute (3) Urinary tract infection Status: Acute Comment Review of Relevant I have reviewed the following items suad (where applicable) has been applied. Labs Laboratory Tests Test 07/23/18 13:13 07/23/18 14:00 07/24/18 04:00 Urine Collection Type Void Urine Color [place] Urine Clarity Turbid Urine pH 5.5 Urine Specific [place] 1.015 Urine Protein 100 mg/dL (NEG-TRACE) Urine Glucose (UA) Negative mg/dL (NEG) Urine Ketones (Stick) Trace mg/dL (NEG) Urine Blood Moderate (NEG) Urine Nitrite Negative (NEG) Urine Bilirubin Small (NEG) Urine Urobilinogen Dipstick 1.0 mg/dL (0.2 mg/dL) Urine Leukocyte Esterase Large (NEG) Urine RBC 6-10 /HPF (0-2) Urine WBC Tntc /HPF (0-4) Urine Squamous Epithelial Cells Few /LPF Urine Bacteria Many /HPF (0-FEW) Urine Mucus Marked /LPF White Blood Count 12.0 x10^3/uL (4.0-11.0) 11.4 x10^3/uL (4.0-11.0) Red Blood Count 4.36 x10^6/uL (3.50-5.40) 3.66 x10^6/uL (3.50-5.40) Hemoglobin 12.2 g/dL (12.0-15.5) 10.4 g/dL (12.0-15.5) Hematocrit 37.2 % (36.0-47.0) 31.2 % (36.0-47.0) Mean Corpuscular Volume 85 fL (79-100) 85 fL (79-100) Mean Corpuscular Hemoglobin 28 pg (25-35) 28 pg (25-35) Mean Corpuscular Hemoglobin Concent 33 g/dL (31-37) 33 g/dL (31-37) Red Cell Distribution Width 14.6 % (11.5-14.5) 15.2 % (11.5-14.5) Platelet Count 115 x10^3/uL (140-400) 84 x10^3/uL (140-400) Neutrophils (%) (Auto) 81 % (31-73) 82 % (31-73) Lymphocytes (%) (Auto) 10 % (24-48) 8 % (24-48) Monocytes (%) (Auto) 9 % (0-9) 10 % (0-9) Eosinophils (%) (Auto) 0 % (0-3) 0 % (0-3) Basophils (%) (Auto) 0 % (0-3) 0 % (0-3) Neutrophils # (Auto) 9.7 x10^3uL (1.8-7.7) 9.3 x10^3uL (1.8-7.7) Lymphocytes # (Auto) 1.2 x10^3/uL (1.0-4.8) 0.9 x10^3/uL (1.0-4.8) Monocytes # (Auto) 1.1 x10^3/uL (0.0-1.1) 1.1 x10^3/uL (0.0-1.1) Eosinophils # (Auto) 0.0 x10^3/uL (0.0-0.7) 0.0 x10^3/uL (0.0-0.7) Basophils # (Auto) 0.0 x10^3/uL (0.0-0.2) 0.0 x10^3/uL (0.0-0.2) Sodium Level 130 mmol/L (136-145) 135 mmol/L (136-145) Potassium Level 2.6 mmol/L (3.5-5.1) 3.2 mmol/L (3.5-5.1) Chloride Level 92 mmol/L (98-107) 103 mmol/L (98-107) Carbon Dioxide Level 29 mmol/L (21-32) 26 mmol/L (21-32) Anion Gap 9 (6-14) 6 (6-14) Blood Urea Nitrogen 27 mg/dL (7-20) 25 mg/dL (7-20) Creatinine 1.1 mg/dL (0.6-1.0) 1.0 mg/dL (0.6-1.0) Estimated GFR (Cockcroft-Gault) 60.7 67.8 BUN/Creatinine Ratio 25 (6-20) Glucose Level 124 mg/dL (70-99) 117 mg/dL (70-99) Calcium Level 9.0 mg/dL (8.5-10.1) 8.0 mg/dL (8.5-10.1) Magnesium Level 1.7 mg/dL (1.8-2.4) Total Bilirubin 0.8 mg/dL (0.2-1.0) Aspartate Amino Transf (AST/SGOT) 20 U/L (15-37) Alanine Aminotransferase (ALT/SGPT) 10 U/L (14-59) Alkaline Phosphatase 79 U/L (46-116) Troponin I Quantitative 0.030 ng/mL (0.000-0.055) Total Protein 7.5 g/dL (6.4-8.2) Albumin 2.4 g/dL (3.4-5.0) Albumin/Globulin Ratio 0.5 (1.0-1.7) Thyroid Stimulating Hormone (TSH) < 0.007 uIU/mL (0.358-3.74) Free Thyroxine 6.15 ng/dL (0.76-1.46) Free Triiodothyronine (T3) pg/mL 7.78 pg/mL (2.18-3.98) Laboratory Tests Test 07/23/18 13:13 07/23/18 14:00 07/24/18 04:00 Urine Collection Type Void Urine Color [place] Urine Clarity Turbid Urine pH 5.5 Urine Specific [place] 1.015 Urine Protein 100 mg/dL (NEG-TRACE) Urine Glucose (UA) Negative mg/dL (NEG) Urine Ketones (Stick) Trace mg/dL (NEG) Urine Blood Moderate (NEG) Urine Nitrite Negative (NEG) Urine Bilirubin Small (NEG) Urine Urobilinogen Dipstick 1.0 mg/dL (0.2 mg/dL) Urine Leukocyte Esterase Large (NEG) Urine RBC 6-10 /HPF (0-2) Urine WBC Tntc /HPF (0-4) Urine Squamous Epithelial Cells Few /LPF Urine Bacteria Many /HPF (0-FEW) Urine Mucus Marked /LPF White Blood Count 12.0 x10^3/uL (4.0-11.0) 11.4 x10^3/uL (4.0-11.0) Red Blood Count 4.36 x10^6/uL (3.50-5.40) 3.66 x10^6/uL (3.50-5.40) Hemoglobin 12.2 g/dL (12.0-15.5) 10.4 g/dL (12.0-15.5) Hematocrit 37.2 % (36.0-47.0) 31.2 % (36.0-47.0) Mean Corpuscular Volume 85 fL (79-100) 85 fL (79-100) Mean Corpuscular Hemoglobin 28 pg (25-35) 28 pg (25-35) Mean Corpuscular Hemoglobin Concent 33 g/dL (31-37) 33 g/dL (31-37) Red Cell Distribution Width 14.6 % (11.5-14.5) 15.2 % (11.5-14.5) Platelet Count 115 x10^3/uL (140-400) 84 x10^3/uL (140-400) Neutrophils (%) (Auto) 81 % (31-73) 82 % (31-73) Lymphocytes (%) (Auto) 10 % (24-48) 8 % (24-48) Monocytes (%) (Auto) 9 % (0-9) 10 % (0-9) Eosinophils (%) (Auto) 0 % (0-3) 0 % (0-3) Basophils (%) (Auto) 0 % (0-3) 0 % (0-3) Neutrophils # (Auto) 9.7 x10^3uL (1.8-7.7) 9.3 x10^3uL (1.8-7.7) Lymphocytes # (Auto) 1.2 x10^3/uL (1.0-4.8) 0.9 x10^3/uL (1.0-4.8) Monocytes # (Auto) 1.1 x10^3/uL (0.0-1.1) 1.1 x10^3/uL (0.0-1.1) Eosinophils # (Auto) 0.0 x10^3/uL (0.0-0.7) 0.0 x10^3/uL (0.0-0.7) Basophils # (Auto) 0.0 x10^3/uL (0.0-0.2) 0.0 x10^3/uL (0.0-0.2) Sodium Level 130 mmol/L (136-145) 135 mmol/L (136-145) Potassium Level 2.6 mmol/L (3.5-5.1) 3.2 mmol/L (3.5-5.1) Chloride Level 92 mmol/L (98-107) 103 mmol/L (98-107) Carbon Dioxide Level 29 mmol/L (21-32) 26 mmol/L (21-32) Anion Gap 9 (6-14) 6 (6-14) Blood Urea Nitrogen 27 mg/dL (7-20) 25 mg/dL (7-20) Creatinine 1.1 mg/dL (0.6-1.0) 1.0 mg/dL (0.6-1.0) Estimated GFR (Cockcroft-Gault) 60.7 67.8 BUN/Creatinine Ratio 25 (6-20) Glucose Level 124 mg/dL (70-99) 117 mg/dL (70-99) Calcium Level 9.0 mg/dL (8.5-10.1) 8.0 mg/dL (8.5-10.1) Magnesium Level 1.7 mg/dL (1.8-2.4) Total Bilirubin 0.8 mg/dL (0.2-1.0) Aspartate Amino Transf (AST/SGOT) 20 U/L (15-37) Alanine Aminotransferase (ALT/SGPT) 10 U/L (14-59) Alkaline Phosphatase 79 U/L (46-116) Troponin I Quantitative 0.030 ng/mL (0.000-0.055) Total Protein 7.5 g/dL (6.4-8.2) Albumin 2.4 g/dL (3.4-5.0) Albumin/Globulin Ratio 0.5 (1.0-1.7) Thyroid Stimulating Hormone (TSH) < 0.007 uIU/mL (0.358-3.74) Free Thyroxine 6.15 ng/dL (0.76-1.46) Free Triiodothyronine (T3) pg/mL 7.78 pg/mL (2.18-3.98) Medications Current Medications Sodium Chloride 1,000 ml @ 1,000 mls/hr 1X ONCE IV Last administered on 07/23/18 14:17; Start 07/23/18 at 13:30; Stop 07/23/18 at 14:29; Status DC Potassium Chloride (Klor-Con) 40 meq 1X ONCE PO Last administered on 07/23/18at 16:01; Start 07/23/18 at 15:30; Stop 07/23/18 at 15:38; Status DC Ceftriaxone Sodium (Rocephin) 1 gm 1X ONCE IVP ; Start 07/23/18 at 15:30; Stop 07/23/18 at 15:31; Status Cancel Levofloxacin/ Dextrose 150 ml @ 100 mls/hr 1X ONCE IV Last administered on 07/23/18at 16:51; Start 07/23/18 at 16:15; Stop 07/23/18 at 17:44; Status DC Sodium Chloride 1,000 ml @ 125 mls/hr 1X ONCE IV ; Start 07/23/18 at 16:15; Stop 07/24/18 at 00:14; Status DC Fentanyl Citrate (Fentanyl 2ml Vial) 25 mcg 1X ONCE IV Last administered on 07/23/18at 16:56; Start 07/23/18 at 16:15; Stop 07/23/18 at 16:16; Status DC Acetaminophen (Tylenol) 650 mg 1X ONCE PO Last administered on 07/23/18at 16:49; Start 07/23/18 at 16:30; Stop 07/23/18 at 16:39; Status DC Diltiazem HCl (Cardizem Iv Push) 10 mg 1X ONCE IVP ; Start 07/23/18 at 16:45; Stop 07/23/18 at 16:46; Status DC Ondansetron HCl (Zofran) 4 mg STK-MED ONCE .ROUTE ; Start 07/23/18 at 16:39; Stop 07/23/18 at 16:40; Status DC Diltiazem HCl (Cardizem Iv Push) 25 mg STK-MED ONCE .ROUTE ; Start 07/23/18 at 16:40; Stop 07/23/18 at 16:41; Status DC Potassium Chloride (Klor-Con) 40 meq 1X ONCE PO Last administered on 07/23/18at 18:39; Start 07/23/18 at 17:30; Stop 07/23/18 at 17:31; Status DC Potassium Chloride (Klor-Con) 20 meq 1X ONCE PO Last administered on 07/23/18at 18:31; Start 07/23/18 at 17:30; Stop 07/23/18 at 17:31; Status DC Loperamide HCl (Imodium) 2 mg PRN Q15MIN PRN PO DIARRHEA; Start 07/23/18 at 17:15 Non-Formulary Medication (Albuterol Sulfate (Ventolin Hfa Inhaler)) 2 puff Q4HRS INH ; Start 07/23/18 at 20:00; Status UNV Fluticasone Propionate (Flonase) 2 spray DAILY NS Last administered on 07/24/18at 07:52; Start 07/24/18 at 09:00 Nicotine (Nicoderm Cq 21mg) 1 patch PRN DAILY PRN TD SMOKING CESSATION; Start 07/23/18 at 17:15 Temazepam (Restoril) 7.5 mg PRN QHS PRN PO INSOMNIA; Start 07/23/18 at 17:15 Albuterol Sulfate (Ventolin Neb Soln) 2.5 mg Q4HRS NEB Last administered on 07/24/18at 08:03; Start 07/23/18 at 20:00 Acetaminophen (Tylenol) 650 mg PRN Q4HRS PRN PO FEVER; Start 07/23/18 at 18:00 Albuterol Sulfate (Ventolin Neb Soln) 2.5 mg STK-MED ONCE .ROUTE ; Start 07/23/18 at 18:07; Stop 07/23/18 at 18:08; Status DC Magnesium Sulfate/ Dextrose 100 ml @ 100 mls/hr 1X ONCE IV Last administered on 07/23/18at 19:13; Start 07/23/18 at 19:00; Stop 07/23/18 at 19:59; Status DC Sodium Chloride 1,000 ml @ 1,000 mls/hr 1X ONCE IV Last administered on 07/23/18at 20:31; Start 07/23/18 at 19:30; Stop 07/23/18 at 20:29; Status DC Acetaminophen/ Hydrocodone Bitart (Lortab 5/325) 1 tab PRN Q6HRS PRN PO MODERATE PAIN Last administered on 07/24/18at 07:53; Start 07/23/18 at 21:45 Potassium Chloride (Klor-Con) 40 meq 1X ONCE PO Last administered on 07/24/18at 09:06; Start 07/24/18 at 08:30; Stop 07/24/18 at 08:31; Status DC Potassium Chloride (Klor-Con) 40 meq DAILYWBKFT PO ; Start 07/25/18 at 08:00 Methimazole (Tapazole) 10 mg BID PO Last administered on 07/24/18at 09:07; Start 07/24/18 at 09:00 Metoprolol Tartrate (Lopressor Vial) 5 mg 1X ONCE IVP Last administered on 07/24/18at 09:49; Start 07/24/18 at 10:00; Stop 07/24/18 at 10:01; Status DC Active Scripts Active Ventolin Hfa Inhaler (Albuterol Sulfate) 18 Gm Hfa.aer.ad 2 Puff INH Q4HRS Prednisone 50 Mg Tablet 1 Tab PO DAILY Clindamycin Hcl 300 Mg Capsule 1 Cap PO TID Tessalon Perle (Benzonatate) 100 Mg Capsule 1 Cap PO TID Flonase Allergy Relief (Fluticasone Propionate) 9.9 Ml [place].susp 2 Sprays NS DAILY Vitals/I & O Vital Sign - Last 24 Hours 07/23/18 07/23/18 07/23/18 07/23/18 12:33 15:30 16:00 16:30 Temp 99.1 99.1 Pulse 108 114 122 156 Resp 15 B/P (MAP) 144/66 (92) 141/58 (85) 149/66 (93) 136/71 (92) Pulse Ox 93 97 98 94 O2 Delivery Room Air Room Air Room Air Room Air 07/23/18 07/23/18 07/23/18 07/23/18 16:35 16:56 17:00 17:37 Temp 102.7 102.8 102.7 102.8 Pulse 124 Resp 28 B/P (MAP) 166/64 (98) Pulse Ox 92 94 O2 Delivery Room Air Nasal Cannula O2 Flow Rate 2.0 07/23/18 07/23/18 07/23/18 07/23/18 18:38 18:38 19:20 19:50 Temp 100.0 99.7 100.0 99.7 Pulse 116 110 Resp 18 B/P (MAP) 137/64 (88) 155/68 (97) Pulse Ox 97 95 O2 Delivery Room Air Room Air Nasal Cannula O2 Flow Rate 2.0 07/23/18 07/23/18 07/23/18 07/24/18 20:25 22:09 22:37 00:03 Temp 97.6 97.6 Pulse 102 Resp 20 B/P (MAP) 121/59 (79) Pulse Ox 96 96 O2 Delivery Room Air Room Air Room Air Room Air 07/24/18 07/24/18 07/24/18 07/24/18 02:45 04:32 07:22 07:53 Temp 98.0 98.5 98.0 98.5 Pulse 86 124 Resp 17 18 B/P (MAP) 117/57 (77) 119/57 (77) Pulse Ox 97 94 O2 Delivery Room Air Room Air Room Air Room Air 07/24/18 07/24/18 07/24/18 08:04 09:02 09:49 Pulse 140 B/P (MAP) 142/75 Pulse Ox 95 O2 Delivery Room Air Room Air Intake and Output 07/23/18 07/23/18 07/24/18 15:00 23:00 07:00 Intake Total 2250 ml 1500 ml Output Total 200 ml 200 ml Balance 2050 ml 1300 ml SANJUANITA PEÑA MD Jul 24, 2018 10:16
[2018-07-24 11:09] VITALS: BP 125/60
--- NOTE | 2018-07-24 11:41 | NUR ---
SS following for discharge planning. SS reviewed pt chart. Pt is from home and is currently on room air. No discharge needs noted at this time. SS will continue to follow for discharge planning.
--- NOTE | 2018-07-24 12:40 | PDOC2 ---
CONSULT Date of Consult Date of Consult DATE: 07/24/18 TIME: 12:35 Reason for Consult Reason for Consult: hyperthyroidism Referring Physician Referring Physician: Kristofer Identification/Chief Complaint Chief Complaint diarrhea Source Source: Caregiver, Chart review, Patient History of Present Illness Reason for Visit: 63 yo F with 2 week hx of diarrhea. Noted to have tachycardia in ER and treated with meds. Multiple electrolyte abnormals. Noted to have low TSH and elevated thyroid. Reports feeling better. Accompanied by supportive family. Past Medical History Cardiovascular: CHF, HTN Pulmonary: Asthma, Pneumonia Psych: Anxiety Musculoskeletal: low back pain, Osteoarthritis Past Surgical History Past Surgical History: Tubal Ligation Family History Family History: Hypertension Social History <1 pack per day ALCOHOL: none Drugs: None Current Problem List Problem List Problems Medical Problems: (1) Diarrhea Status: Acute (2) Tachycardia Status: Acute (3) Urinary tract infection Status: Acute Current Medications Current Medications Current Medications Sodium Chloride 1,000 ml @ 1,000 mls/hr 1X ONCE IV Last administered on 07/23/18at 14:17; Start 07/23/18 at 13:30; Stop 07/23/18 at 14:29; Status DC Potassium Chloride (Klor-Con) 40 meq 1X ONCE PO Last administered on 07/23/18at 16:01; Start 07/23/18 at 15:30; Stop 07/23/18 at 15:38; Status DC Ceftriaxone Sodium (Rocephin) 1 gm 1X ONCE IVP ; Start 07/23/18 at 15:30; Stop 07/23/18 at 15:31; Status Cancel Levofloxacin/ Dextrose 150 ml @ 100 mls/hr 1X ONCE IV Last administered on 07/23/18at 16:51; Start 07/23/18 at 16:15; Stop 07/23/18 at 17:44; Status DC Sodium Chloride 1,000 ml @ 125 mls/hr 1X ONCE IV ; Start 07/23/18 at 16:15; Stop 07/24/18 at 00:14; Status DC Fentanyl Citrate (Fentanyl 2ml Vial) 25 mcg 1X ONCE IV Last administered on 07/23/18at 16:56; Start 07/23/18 at 16:15; Stop 07/23/18 at 16:16; Status DC Acetaminophen (Tylenol) 650 mg 1X ONCE PO Last administered on 07/23/18at 16:49; Start 07/23/18 at 16:30; Stop 07/23/18 at 16:39; Status DC Diltiazem HCl (Cardizem Iv Push) 10 mg 1X ONCE IVP ; Start 07/23/18 at 16:45; Stop 07/23/18 at 16:46; Status DC Ondansetron HCl (Zofran) 4 mg STK-MED ONCE .ROUTE ; Start 07/23/18 at 16:39; Stop 07/23/18 at 16:40; Status DC Diltiazem HCl (Cardizem Iv Push) 25 mg STK-MED ONCE .ROUTE ; Start 07/23/18 at 16:40; Stop 07/23/18 at 16:41; Status DC Potassium Chloride (Klor-Con) 40 meq 1X ONCE PO Last administered on 07/23/18at 18:39; Start 07/23/18 at 17:30; Stop 07/23/18 at 17:31; Status DC Potassium Chloride (Klor-Con) 20 meq 1X ONCE PO Last administered on 07/23/18at 18:31; Start 07/23/18 at 17:30; Stop 07/23/18 at 17:31; Status DC Loperamide HCl (Imodium) 2 mg PRN Q15MIN PRN PO DIARRHEA; Start 07/23/18 at 17:15 Non-Formulary Medication (Albuterol Sulfate (Ventolin Hfa Inhaler)) 2 puff Q4HRS INH ; Start 07/23/18 at 20:00; Status UNV Fluticasone Propionate (Flonase) 2 spray DAILY NS Last administered on 07/24/18at 07:52; Start 07/24/18 at 09:00 Nicotine (Nicoderm Cq 21mg) 1 patch PRN DAILY PRN TD SMOKING CESSATION; Start 07/23/18 at 17:15 Temazepam (Restoril) 7.5 mg PRN QHS PRN PO INSOMNIA; Start 07/23/18 at 17:15 Albuterol Sulfate (Ventolin Neb Soln) 2.5 mg Q4HRS NEB Last administered on 07/24/18at 11:57; Start 07/23/18 at 20:00 Acetaminophen (Tylenol) 650 mg PRN Q4HRS PRN PO FEVER; Start 07/23/18 at 18:00 Albuterol Sulfate (Ventolin Neb Soln) 2.5 mg STK-MED ONCE .ROUTE ; Start 07/23/18 at 18:07; Stop 07/23/18 at 18:08; Status DC Magnesium Sulfate/ Dextrose 100 ml @ 100 mls/hr 1X ONCE IV Last administered on 07/23/18at 19:13; Start 07/23/18 at 19:00; Stop 07/23/18 at 19:59; Status DC Sodium Chloride 1,000 ml @ 1,000 mls/hr 1X ONCE IV Last administered on 07/23/18at 20:31; Start 07/23/18 at 19:30; Stop 07/23/18 at 20:29; Status DC Acetaminophen/ Hydrocodone Bitart (Lortab 5/325) 1 tab PRN Q6HRS PRN PO MODERATE PAIN Last administered on 07/24/18at 07:53; Start 07/23/18 at 21:45 Potassium Chloride (Klor-Con) 40 meq 1X ONCE PO Last administered on 07/24/18at 09:06; Start 07/24/18 at 08:30; Stop 07/24/18 at 08:31; Status DC Potassium Chloride (Klor-Con) 40 meq DAILYWBKFT PO ; Start 07/25/18 at 08:00 Methimazole (Tapazole) 10 mg BID PO Last administered on 07/24/18at 09:07; Start 07/24/18 at 09:00 Metoprolol Tartrate (Lopressor Vial) 5 mg 1X ONCE IVP Last administered on 07/24/18at 09:49; Start 07/24/18 at 10:00; Stop 07/24/18 at 10:01; Status DC Active Scripts Active Ventolin Hfa Inhaler (Albuterol Sulfate) 18 Gm Hfa.aer.ad 2 Puff INH Q4HRS Prednisone 50 Mg Tablet 1 Tab PO DAILY Clindamycin Hcl 300 Mg Capsule 1 Cap PO TID Tessalon Perle (Benzonatate) 100 Mg Capsule 1 Cap PO TID Flonase Allergy Relief (Fluticasone Propionate) 9.9 Ml [place].susp 2 Sprays NS DAILY Allergies Allergies: Coded Allergies: Penicillins (Verified Allergy, Severe, anaphlaxis, 06/14/18) ROS Cardiovascular: yes Palpitations Gastrointestinal: Yes Diarrhea Physical Exam General: Alert, Oriented X3, Cooperative, No acute distress, Other (cachetic) HEENT: Atraumatic Lungs: Normal air movement Abdomen: Soft, No tenderness Extremities: No clubbing, No cyanosis Skin: No rashes, No breakdown Neuro: Normal speech, Sensation intact Psych/Mental Status: Mental status NL, Mood NL Vitals VITALS Vital Signs Date Time Temp Pulse Resp B/P (MAP) Pulse Ox O2 Delivery O2 Flow Rate FiO2 07/24/18 11:57 99 Room Air 07/24/18 11:09 99.2 107 16 125/60 (81) 99.2 07/23/18 19:50 2.0 Labs Labs Laboratory Tests Test 07/23/18 13:13 07/23/18 14:00 07/24/18 04:00 Urine Collection Type Void Urine Color [place] Urine Clarity Turbid Urine pH 5.5 Urine Specific [place] 1.015 Urine Protein 100 mg/dL (NEG-TRACE) Urine Glucose (UA) Negative mg/dL (NEG) Urine Ketones (Stick) Trace mg/dL (NEG) Urine Blood Moderate (NEG) Urine Nitrite Negative (NEG) Urine Bilirubin Small (NEG) Urine Urobilinogen Dipstick 1.0 mg/dL (0.2 mg/dL) Urine Leukocyte Esterase Large (NEG) Urine RBC 6-10 /HPF (0-2) Urine WBC Tntc /HPF (0-4) Urine Squamous Epithelial Cells Few /LPF Urine Bacteria Many /HPF (0-FEW) Urine Mucus Marked /LPF White Blood Count 12.0 x10^3/uL (4.0-11.0) 11.4 x10^3/uL (4.0-11.0) Red Blood Count 4.36 x10^6/uL (3.50-5.40) 3.66 x10^6/uL (3.50-5.40) Hemoglobin 12.2 g/dL (12.0-15.5) 10.4 g/dL (12.0-15.5) Hematocrit 37.2 % (36.0-47.0) 31.2 % (36.0-47.0) Mean Corpuscular Volume 85 fL (79-100) 85 fL (79-100) Mean Corpuscular Hemoglobin 28 pg (25-35) 28 pg (25-35) Mean Corpuscular Hemoglobin Concent 33 g/dL (31-37) 33 g/dL (31-37) Red Cell Distribution Width 14.6 % (11.5-14.5) 15.2 % (11.5-14.5) Platelet Count 115 x10^3/uL (140-400) 84 x10^3/uL (140-400) Neutrophils (%) (Auto) 81 % (31-73) 82 % (31-73) Lymphocytes (%) (Auto) 10 % (24-48) 8 % (24-48) Monocytes (%) (Auto) 9 % (0-9) 10 % (0-9) Eosinophils (%) (Auto) 0 % (0-3) 0 % (0-3) Basophils (%) (Auto) 0 % (0-3) 0 % (0-3) Neutrophils # (Auto) 9.7 x10^3uL (1.8-7.7) 9.3 x10^3uL (1.8-7.7) Lymphocytes # (Auto) 1.2 x10^3/uL (1.0-4.8) 0.9 x10^3/uL (1.0-4.8) Monocytes # (Auto) 1.1 x10^3/uL (0.0-1.1) 1.1 x10^3/uL (0.0-1.1) Eosinophils # (Auto) 0.0 x10^3/uL (0.0-0.7) 0.0 x10^3/uL (0.0-0.7) Basophils # (Auto) 0.0 x10^3/uL (0.0-0.2) 0.0 x10^3/uL (0.0-0.2) Sodium Level 130 mmol/L (136-145) 135 mmol/L (136-145) Potassium Level 2.6 mmol/L (3.5-5.1) 3.2 mmol/L (3.5-5.1) Chloride Level 92 mmol/L (98-107) 103 mmol/L (98-107) Carbon Dioxide Level 29 mmol/L (21-32) 26 mmol/L (21-32) Anion Gap 9 (6-14) 6 (6-14) Blood Urea Nitrogen 27 mg/dL (7-20) 25 mg/dL (7-20) Creatinine 1.1 mg/dL (0.6-1.0) 1.0 mg/dL (0.6-1.0) Estimated GFR (Cockcroft-Gault) 60.7 67.8 BUN/Creatinine Ratio 25 (6-20) Glucose Level 124 mg/dL (70-99) 117 mg/dL (70-99) Calcium Level 9.0 mg/dL (8.5-10.1) 8.0 mg/dL (8.5-10.1) Magnesium Level 1.7 mg/dL (1.8-2.4) 1.9 mg/dL (1.8-2.4) Total Bilirubin 0.8 mg/dL (0.2-1.0) Aspartate Amino Transf (AST/SGOT) 20 U/L (15-37) Alanine Aminotransferase (ALT/SGPT) 10 U/L (14-59) Alkaline Phosphatase 79 U/L (46-116) Troponin I Quantitative 0.030 ng/mL (0.000-0.055) Total Protein 7.5 g/dL (6.4-8.2) Albumin 2.4 g/dL (3.4-5.0) Albumin/Globulin Ratio 0.5 (1.0-1.7) Thyroid Stimulating Hormone (TSH) < 0.007 uIU/mL (0.358-3.74) Free Thyroxine 6.15 ng/dL (0.76-1.46) Free Triiodothyronine (T3) pg/mL 7.78 pg/mL (2.18-3.98) Laboratory Tests Test 07/23/18 13:13 07/23/18 14:00 07/24/18 04:00 Urine Collection Type Void Urine Color [place] Urine Clarity Turbid Urine pH 5.5 Urine Specific [place] 1.015 Urine Protein 100 mg/dL (NEG-TRACE) Urine Glucose (UA) Negative mg/dL (NEG) Urine Ketones (Stick) Trace mg/dL (NEG) Urine Blood Moderate (NEG) Urine Nitrite Negative (NEG) Urine Bilirubin Small (NEG) Urine Urobilinogen Dipstick 1.0 mg/dL (0.2 mg/dL) Urine Leukocyte Esterase Large (NEG) Urine RBC 6-10 /HPF (0-2) Urine WBC Tntc /HPF (0-4) Urine Squamous Epithelial Cells Few /LPF Urine Bacteria Many /HPF (0-FEW) Urine Mucus Marked /LPF White Blood Count 12.0 x10^3/uL (4.0-11.0) 11.4 x10^3/uL (4.0-11.0) Red Blood Count 4.36 x10^6/uL (3.50-5.40) 3.66 x10^6/uL (3.50-5.40) Hemoglobin 12.2 g/dL (12.0-15.5) 10.4 g/dL (12.0-15.5) Hematocrit 37.2 % (36.0-47.0) 31.2 % (36.0-47.0) Mean Corpuscular Volume 85 fL (79-100) 85 fL (79-100) Mean Corpuscular Hemoglobin 28 pg (25-35) 28 pg (25-35) Mean Corpuscular Hemoglobin Concent 33 g/dL (31-37) 33 g/dL (31-37) Red Cell Distribution Width 14.6 % (11.5-14.5) 15.2 % (11.5-14.5) Platelet Count 115 x10^3/uL (140-400) 84 x10^3/uL (140-400) Neutrophils (%) (Auto) 81 % (31-73) 82 % (31-73) Lymphocytes (%) (Auto) 10 % (24-48) 8 % (24-48) Monocytes (%) (Auto) 9 % (0-9) 10 % (0-9) Eosinophils (%) (Auto) 0 % (0-3) 0 % (0-3) Basophils (%) (Auto) 0 % (0-3) 0 % (0-3) Neutrophils # (Auto) 9.7 x10^3uL (1.8-7.7) 9.3 x10^3uL (1.8-7.7) Lymphocytes # (Auto) 1.2 x10^3/uL (1.0-4.8) 0.9 x10^3/uL (1.0-4.8) Monocytes # (Auto) 1.1 x10^3/uL (0.0-1.1) 1.1 x10^3/uL (0.0-1.1) Eosinophils # (Auto) 0.0 x10^3/uL (0.0-0.7) 0.0 x10^3/uL (0.0-0.7) Basophils # (Auto) 0.0 x10^3/uL (0.0-0.2) 0.0 x10^3/uL (0.0-0.2) Sodium Level 130 mmol/L (136-145) 135 mmol/L (136-145) Potassium Level 2.6 mmol/L (3.5-5.1) 3.2 mmol/L (3.5-5.1) Chloride Level 92 mmol/L (98-107) 103 mmol/L (98-107) Carbon Dioxide Level 29 mmol/L (21-32) 26 mmol/L (21-32) Anion Gap 9 (6-14) 6 (6-14) Blood Urea Nitrogen 27 mg/dL (7-20) 25 mg/dL (7-20) Creatinine 1.1 mg/dL (0.6-1.0) 1.0 mg/dL (0.6-1.0) Estimated GFR (Cockcroft-Gault) 60.7 67.8 BUN/Creatinine Ratio 25 (6-20) Glucose Level 124 mg/dL (70-99) 117 mg/dL (70-99) Calcium Level 9.0 mg/dL (8.5-10.1) 8.0 mg/dL (8.5-10.1) Magnesium Level 1.7 mg/dL (1.8-2.4) 1.9 mg/dL (1.8-2.4) Total Bilirubin 0.8 mg/dL (0.2-1.0) Aspartate Amino Transf (AST/SGOT) 20 U/L (15-37) Alanine Aminotransferase (ALT/SGPT) 10 U/L (14-59) Alkaline Phosphatase 79 U/L (46-116) Troponin I Quantitative 0.030 ng/mL (0.000-0.055) Total Protein 7.5 g/dL (6.4-8.2) Albumin 2.4 g/dL (3.4-5.0) Albumin/Globulin Ratio 0.5 (1.0-1.7) Thyroid Stimulating Hormone (TSH) < 0.007 uIU/mL (0.358-3.74) Free Thyroxine 6.15 ng/dL (0.76-1.46) Free Triiodothyronine (T3) pg/mL 7.78 pg/mL (2.18-3.98) Images Images neck US pending Assessment/Plan Assessment/Plan hyperthyroidism neck US report pending will check thyroid uptake agree with supportive care and consider antithyroid meds. Will consider thyroid resection, but will need to maximize pt and prevent thyroid storm prior to. Thanks for consult! MAYO MONTEZ MD Jul 24, 2018 12:40
[2018-07-24] MEDS ORDERED: DIGOXIN IV 500 MCG/2 ML AMPUL. IV ONE (13:15)
--- NOTE | 2018-07-24 13:17 | EKG ---
[facility] [address] [place] [address] Test Date: 2018-07-24 Test Time: 13:06:41 Pat Name: JANNET BOBBY Department: Room: 206 1 Gender: F Director Marketing Analytics: ALYSSA : 1955 Requested By: CHANELL MCCALL Order Number: [id number] Reading MD: Denis Melgoza MD Measurements Intervals [place] Rate: 148 P: 66 [place]: 76 QRS: -36 QRSD: 76 T: 152 QT: 310 QTc: 492 Interpretive Statements SVT PROBABLE ATRIAL TACHYCARDIA Electronically Signed On 07-24-2018 17:27:01 CDT by Denis Melgoza MD
--- NOTE | 2018-07-24 13:51 | EKG ---
[facility] [address] [place] [address] Test Date: 2018-07-23 Test Time: 16:30:59 Pat Name: JANNET BOBBY Department: Room: 206 1 Gender: F Planning Manager: : 1955 Requested By: SANJUANITA PEÑA Order Number: [id number] Reading MD: Dillan Keys Measurements Intervals [place] Rate: 163 P: [place]: QRS: -38 QRSD: 82 T: 144 QT: 308 QTc: 513 Interpretive Statements ATRIAL FIBRILLATION WITH RVR. ABNORMAL LEFT AXIS DEVIATION CONSIDER LEFT VENTRICULAR HYPERTROPHY QRS(T) CONTOUR ABNORMALITY CONSISTENT WITH INFERIOR INFARCT PROBABLY OLD ST & T ABNORMALITY, CONSIDER ANTEROLATERAL ISCHEMIA OR LEFT VENTRICULAR STRAIN ABNORMAL ECG Electronically Signed On 07-29-2018 11:56:24 CDT by Dillan Keys
--- NOTE | 2018-07-24 14:43 | RAD ---
Thyroid ultrasound study without comparison for history of hyperthyroidism. TECHNIQUE AND FINDINGS: Real-time grayscale and color Doppler evaluation of the thyroid gland is performed. Thyroid gland is enlarged, diffusely heterogeneous. The right lobe measures 5.9 x 1.8 x 2.5 cm in the left measures 5.7 x 1.9 x 2.6 cm. The isthmus is also enlarged measuring 1 cm in thickness. Within the right lobe of the thyroid gland, there are 2 small hypoechoic circumscribed nodules the largest which measures only 4 mm. Within the left lobe Thyroid inferiorly, there are also 2 small heterogeneous nodules, which are primarily isoechoic but have some internal cystic elements. Margins are less well discriminated against the background thyroid tissue. The largest is 1.5 x 1.5 x 1.1 cm. At the right isthmus, there is a dominant heterogeneous circumscribed nodule measuring 2.9 x 3.1 x 2.3 cm. No suspicious adenopathy is seen. IMPRESSION: 1. Multinodular thyroid, with a dominant nodule at the inferior aspect of the isthmus measuring 3.1 cm. Fine-needle aspiration is recommended. There is second 1.5 cm nodule within the left thyroid gland with nonspecific features, which could be amenable to fine-needle aspiration or follow-up depending on patient's risk factors. 2. Diffuse thyromegaly. Electronically signed by: Mauri Cunningham MD (07/24/2018 2:40 PM) [id number]
[2018-07-24] MEDS ORDERED: DICL100G18 TP (15:09)
[2018-07-24] MEDS ORDERED: CYCL10TA2 PO (15:09)
[2018-07-24] MEDS ORDERED: LOSA1TAB22 PO (15:09)
[2018-07-24] MEDS ORDERED: OXYC1TAB19 PO (15:09)
[2018-07-24] MEDS ORDERED: AMLO5TAB10 PO (15:09)
[2018-07-24] MEDS ORDERED: TIZA4TAB PO (15:09)
[2018-07-24] MEDS ORDERED: PROM6.257 PO ×2 (15:09)
[2018-07-24] MEDS ORDERED: ALPR0.5T PO (15:09)
[2018-07-24] MEDS ORDERED: GABA600T7 PO (15:09)
[2018-07-24 15:21] VITALS: BP 101/57
[2018-07-24] MEDS: METOPROLOL TART IMMED RELEASE 25 MG TABLET. PO SCH ×2 (17:38→23:10)
[2018-07-24] MEDS: ASPIRIN ENTERIC COATED 81 MG TABLET.DR. PO SCH (17:38)
[2018-07-24 19:25] VITALS: BP 94/47
[2018-07-24 23:50] VITALS: BP 99/49
[2018-07-25 03:46] VITALS: BP 109/46
[2018-07-25 03:46] LABS: CALCIUM 8.6 mg/dL (8.5-10.1); CREATININE 1.1 mg/dL (0.6-1.0); GFR 60.7; POTASSIUM 4.4 mmol/L (3.5-5.1)
[2018-07-25] MEDS: ALBUTEROL SULFATE 2.5 MG/3 ML NEBU. NEB SCH ×5 (03:47→18:34)
[2018-07-25] MEDS: METOPROLOL TART IMMED RELEASE 25 MG TABLET. PO SCH ×4 (05:30→23:28)
[2018-07-25 07:35] VITALS: BP 133/61
[2018-07-25] MEDS ORDERED: POTASSIUM CHLORIDE 20 MEQ TABLET.ER. PO SCH (08:00)
[2018-07-25] MEDS: FLUTICASONE 50MCG/NASAL SPRAY 16GM BOTTLE. NS SCH (09:07)
[2018-07-25] MEDS: methIMAzole 10 MG TABLET PO SCH ×2 (09:07→21:14)
[2018-07-25] MEDS: ASPIRIN ENTERIC COATED 81 MG TABLET.DR. PO SCH (09:07)
[2018-07-25] MEDS: CIPROFLOXACIN 400MG PREMIX 200 ML IV SCH ×2 (09:08→21:14)
[2018-07-25] MEDS: HYDROcodone/APAP 5/325MG 1 TAB TABLET PO PRN (09:25)
--- NOTE | 2018-07-25 09:53 | PDOC ---
PROGRESS NOTES Chief Complaint Chief Complaint Hyperthyroidism with undetectable TSH and appropriately elevated T3-T4 - NEW dx Multinodular goiter on wet read thyroid ultrasound Nonsustained V. tach with sinus tachycardia at ER-new Diarrhea, acute on chronic for 2 weeks Weight loss Cachexia Critical hypokalemia 2.6 on admission, corrected Hypomagnesemia., corrected Full code Generalized weakness Fevers, UTI History of Present Illness History of Present Illness All her labs and workup and course point to HYPERthyroidism as a cause of her symptoms Appreciate GS, multinodular goiter on US - new Can plan for outpatient elective thyroid surgery in 6 weeks once she is not as "hot as she is right now" She claims no diarrhea today Nutritional board for cachexia She wants to go home but has not ambulated with PTOT yet Also echo has not been done Also febrile last night and had a UTI and was not getting antibiotics Plan - penicillin allergy includes hives swelling Start Cipro twice a day Await echo Await PT OT I recommended her to stay one more night-I am unsure if she will follow Daughter who she lives with is agreeable and rather prefer that she stay one more night Vitals Vitals Vital Signs Date Time Temp Pulse Resp B/P (MAP) Pulse Ox O2 Delivery O2 Flow Rate FiO2 07/25/18 09:25 15 92 Room Air 2.0 07/25/18 07:35 99.2 92 133/61 (85) 99.2 Physical Exam General: Alert, Oriented X3, Cooperative, No acute distress Heart: Normal S1, Normal S2, Other (ST) Abdomen: Soft Extremities: No edema, Normal pulses, Other (cachectic) Skin: No rashes, No breakdown, No significant lesion Labs LABS Laboratory Tests Test 07/25/18 03:10 Sodium Level 135 mmol/L (136-145) Potassium Level 4.4 mmol/L (3.5-5.1) Chloride Level 103 mmol/L (98-107) Carbon Dioxide Level 27 mmol/L (21-32) Anion Gap 5 (6-14) Blood Urea Nitrogen 25 mg/dL (7-20) Creatinine 1.1 mg/dL (0.6-1.0) Estimated GFR (Cockcroft-Gault) 60.7 Glucose Level 111 mg/dL (70-99) Calcium Level 8.6 mg/dL (8.5-10.1) Review of Systems Review of Systems A 14 point ROS was completed with the following noted as positive: Other systems reviewed and negative. \\CONSTITUTIONAL: No fever or chills EYES: No recent changes SKIN: No rash or itching CARDIOVASCULAR: No chest pain, syncope, palpitations, or edema RESPIRATORY: No SOB or cough GASTROINTESTINAL: No nausea, vomiting or abdominal pain NEUROLOGICAL: No headaches or weakness ENDOCRINE: No cold or heat intolerance GENITOURINARY: No urgency or frequency of urination MUSCULOSKELETAL: No back pain or joint pain LYMPHATICS: No enlarged lymph nodes PSYCHIATRIC: No anxiety or depression Assessment and Plan Assessmemt and Plan Problems Medical Problems: (1) Diarrhea Status: Acute (2) Tachycardia Status: Acute (3) Urinary tract infection Status: Acute Comment Review of Relevant I have reviewed the following items suad (where applicable) has been applied. Labs Laboratory Tests Test 07/23/18 13:13 07/23/18 14:00 07/24/18 04:00 07/25/18 03:10 Urine Collection Type Void Urine Color [place] Urine Clarity Turbid Urine pH 5.5 Urine Specific [place] 1.015 Urine Protein 100 mg/dL (NEG-TRACE) Urine Glucose (UA) Negative mg/dL (NEG) Urine Ketones (Stick) Trace mg/dL (NEG) Urine Blood Moderate (NEG) Urine Nitrite Negative (NEG) Urine Bilirubin Small (NEG) Urine Urobilinogen Dipstick 1.0 mg/dL (0.2 mg/dL) Urine Leukocyte Esterase Large (NEG) Urine RBC 6-10 /HPF (0-2) Urine WBC Tntc /HPF (0-4) Urine Squamous Epithelial Cells Few /LPF Urine Bacteria Many /HPF (0-FEW) Urine Mucus Marked /LPF White Blood Count 12.0 x10^3/uL (4.0-11.0) 11.4 x10^3/uL (4.0-11.0) Red Blood Count 4.36 x10^6/uL (3.50-5.40) 3.66 x10^6/uL (3.50-5.40) Hemoglobin 12.2 g/dL (12.0-15.5) 10.4 g/dL (12.0-15.5) Hematocrit 37.2 % (36.0-47.0) 31.2 % (36.0-47.0) Mean Corpuscular Volume 85 fL (79-100) 85 fL (79-100) Mean Corpuscular Hemoglobin 28 pg (25-35) 28 pg (25-35) Mean Corpuscular Hemoglobin Concent 33 g/dL (31-37) 33 g/dL (31-37) Red Cell Distribution Width 14.6 % (11.5-14.5) 15.2 % (11.5-14.5) Platelet Count 115 x10^3/uL (140-400) 84 x10^3/uL (140-400) Neutrophils (%) (Auto) 81 % (31-73) 82 % (31-73) Lymphocytes (%) (Auto) 10 % (24-48) 8 % (24-48) Monocytes (%) (Auto) 9 % (0-9) 10 % (0-9) Eosinophils (%) (Auto) 0 % (0-3) 0 % (0-3) Basophils (%) (Auto) 0 % (0-3) 0 % (0-3) Neutrophils # (Auto) 9.7 x10^3uL (1.8-7.7) 9.3 x10^3uL (1.8-7.7) Lymphocytes # (Auto) 1.2 x10^3/uL (1.0-4.8) 0.9 x10^3/uL (1.0-4.8) Monocytes # (Auto) 1.1 x10^3/uL (0.0-1.1) 1.1 x10^3/uL (0.0-1.1) Eosinophils # (Auto) 0.0 x10^3/uL (0.0-0.7) 0.0 x10^3/uL (0.0-0.7) Basophils # (Auto) 0.0 x10^3/uL (0.0-0.2) 0.0 x10^3/uL (0.0-0.2) Sodium Level 130 mmol/L (136-145) 135 mmol/L (136-145) 135 mmol/L (136-145) Potassium Level 2.6 mmol/L (3.5-5.1) 3.2 mmol/L (3.5-5.1) 4.4 mmol/L (3.5-5.1) Chloride Level 92 mmol/L (98-107) 103 mmol/L (98-107) 103 mmol/L (98-107) Carbon Dioxide Level 29 mmol/L (21-32) 26 mmol/L (21-32) 27 mmol/L (21-32) Anion Gap 9 (6-14) 6 (6-14) 5 (6-14) Blood Urea Nitrogen 27 mg/dL (7-20) 25 mg/dL (7-20) 25 mg/dL (7-20) Creatinine 1.1 mg/dL (0.6-1.0) 1.0 mg/dL (0.6-1.0) 1.1 mg/dL (0.6-1.0) Estimated GFR (Cockcroft-Gault) 60.7 67.8 60.7 BUN/Creatinine Ratio 25 (6-20) Glucose Level 124 mg/dL (70-99) 117 mg/dL (70-99) 111 mg/dL (70-99) Calcium Level 9.0 mg/dL (8.5-10.1) 8.0 mg/dL (8.5-10.1) 8.6 mg/dL (8.5-10.1) Magnesium Level 1.7 mg/dL (1.8-2.4) 1.9 mg/dL (1.8-2.4) Total Bilirubin 0.8 mg/dL (0.2-1.0) Aspartate Amino Transf (AST/SGOT) 20 U/L (15-37) Alanine Aminotransferase (ALT/SGPT) 10 U/L (14-59) Alkaline Phosphatase 79 U/L (46-116) Troponin I Quantitative 0.030 ng/mL (0.000-0.055) Total Protein 7.5 g/dL (6.4-8.2) Albumin 2.4 g/dL (3.4-5.0) Albumin/Globulin Ratio 0.5 (1.0-1.7) Thyroid Stimulating Hormone (TSH) < 0.007 uIU/mL (0.358-3.74) Free Thyroxine 6.15 ng/dL (0.76-1.46) Free Triiodothyronine (T3) pg/mL 7.78 pg/mL (2.18-3.98) Laboratory Tests Test 07/25/18 03:10 Sodium Level 135 mmol/L (136-145) Potassium Level 4.4 mmol/L (3.5-5.1) Chloride Level 103 mmol/L (98-107) Carbon Dioxide Level 27 mmol/L (21-32) Anion Gap 5 (6-14) Blood Urea Nitrogen 25 mg/dL (7-20) Creatinine 1.1 mg/dL (0.6-1.0) Estimated GFR (Cockcroft-Gault) 60.7 Glucose Level 111 mg/dL (70-99) Calcium Level 8.6 mg/dL (8.5-10.1) Medications Current Medications Sodium Chloride 1,000 ml @ 1,000 mls/hr 1X ONCE IV Last administered on 07/23/18at 14:17; Start 07/23/18 at 13:30; Stop 07/23/18 at 14:29; Status DC Potassium Chloride (Klor-Con) 40 meq 1X ONCE PO Last administered on 07/23/18at 16:01; Start 07/23/18 at 15:30; Stop 07/23/18 at 15:38; Status DC Ceftriaxone Sodium (Rocephin) 1 gm 1X ONCE IVP ; Start 07/23/18 at 15:30; Stop 07/23/18 at 15:31; Status Cancel Levofloxacin/ Dextrose 150 ml @ 100 mls/hr 1X ONCE IV Last administered on 07/23/18at 16:51; Start 07/23/18 at 16:15; Stop 07/23/18 at 17:44; Status DC Sodium Chloride 1,000 ml @ 125 mls/hr 1X ONCE IV ; Start 07/23/18 at 16:15; Stop 07/24/18 at 00:14; Status DC Fentanyl Citrate (Fentanyl 2ml Vial) 25 mcg 1X ONCE IV Last administered on 07/23/18at 16:56; Start 07/23/18 at 16:15; Stop 07/23/18 at 16:16; Status DC Acetaminophen (Tylenol) 650 mg 1X ONCE PO Last administered on 07/23/18at 16:49; Start 07/23/18 at 16:30; Stop 07/23/18 at 16:39; Status DC Diltiazem HCl (Cardizem Iv Push) 10 mg 1X ONCE IVP ; Start 07/23/18 at 16:45; Stop 07/23/18 at 16:46; Status DC Ondansetron HCl (Zofran) 4 mg STK-MED ONCE .ROUTE ; Start 07/23/18 at 16:39; Stop 07/23/18 at 16:40; Status DC Diltiazem HCl (Cardizem Iv Push) 25 mg STK-MED ONCE .ROUTE ; Start 07/23/18 at 16:40; Stop 07/23/18 at 16:41; Status DC Potassium Chloride (Klor-Con) 40 meq 1X ONCE PO Last administered on 07/23/18at 18:39; Start 07/23/18 at 17:30; Stop 07/23/18 at 17:31; Status DC Potassium Chloride (Klor-Con) 20 meq 1X ONCE PO Last administered on 07/23/18at 18:31; Start 07/23/18 at 17:30; Stop 07/23/18 at 17:31; Status DC Loperamide HCl (Imodium) 2 mg PRN Q15MIN PRN PO DIARRHEA; Start 07/23/18 at 17:15 Non-Formulary Medication (Albuterol Sulfate (Ventolin Hfa Inhaler)) 2 puff Q4HRS INH ; Start 07/23/18 at 20:00; Status UNV Fluticasone Propionate (Flonase) 2 spray DAILY NS Last administered on 07/25/18at 09:07; Start 07/24/18 at 09:00 Nicotine (Nicoderm Cq 21mg) 1 patch PRN DAILY PRN TD SMOKING CESSATION; Start 07/23/18 at 17:15 Temazepam (Restoril) 7.5 mg PRN QHS PRN PO INSOMNIA; Start 07/23/18 at 17:15 Albuterol Sulfate (Ventolin Neb Soln) 2.5 mg Q4HRS NEB Last administered on 07/25/18at 08:40; Start 07/23/18 at 20:00 Acetaminophen (Tylenol) 650 mg PRN Q4HRS PRN PO FEVER; Start 07/23/18 at 18:00 Albuterol Sulfate (Ventolin Neb Soln) 2.5 mg STK-MED ONCE .ROUTE ; Start 06/30 08/16 at 18:07; Stop 07/23/18 at 18:08; Status DC Magnesium Sulfate/ Dextrose 100 ml @ 100 mls/hr 1X ONCE IV Last administered on 07/23/18 19:13; Start 07/23/18 at 19:00; Stop 07/23/18 at 19:59; Status DC Sodium Chloride 1,000 ml @ 1,000 mls/hr 1X ONCE IV Last administered on 07/23/18 20:31; Start 07/23/18 at 19:30; Stop 07/23/18 at 20:29; Status DC Acetaminophen/ Hydrocodone Bitart (Lortab 5/325) 1 tab PRN Q6HRS PRN PO MODERATE PAIN Last administered on 07/25/18 09:25; Start 07/23/18 at 21:45 Potassium Chloride (Klor-Con) 40 meq 1X ONCE PO Last administered on 07/24/18 09:06; Start 07/24/18 at 08:30; Stop 07/24/18 at 08:31; Status DC Potassium Chloride (Klor-Con) 40 meq DAILYWBKFT PO ; Start 07/25/18 at 08:00; Stop 07/25/18 at 08:28; Status DC Methimazole (Tapazole) 10 mg BID PO Last administered on 07/25/18 09:07; Start 07/24/18 at 09:00 Metoprolol Tartrate (Lopressor Vial) 5 mg 1X ONCE IVP Last administered on 07/24/18 09:49; Start 07/24/18 at 10:00; Stop 07/24/18 at 10:01; Status DC Digoxin (Lanoxin) 500 mcg 1X ONCE IV ; Start 07/24/18 at 13:15; Stop 07/24/18 at 13:16; Status DC Metoprolol Tartrate (Lopressor) 25 mg Q6HRS PO Last administered on 07/25/18 05:30; Start 07/24/18 at 18:00 Aspirin (Ecotrin) 81 mg DAILYWBKFT PO Last administered on 07/25/18 09:07; Start 07/24/18 at 16:00 Ciprofloxacin/ Dextrose 200 ml @ 200 mls/hr Q12HR IV Last administered on 07/25/18 09:08; Start 07/25/18 at 09:00 Active Scripts Active Ventolin Hfa Inhaler (Albuterol Sulfate) 18 Gm Hfa.aer.ad 2 Puff INH Q4HRS Prednisone 50 Mg Tablet 1 Tab PO DAILY Clindamycin Hcl 300 Mg Capsule 1 Cap PO TID Tessalon Perle (Benzonatate) 100 Mg Capsule 1 Cap PO TID Flonase Allergy Relief (Fluticasone Propionate) 9.9 Ml [place].susp 2 Sprays NS DAILY Reported Promethazine Hcl 6.25 Mg/5 Ml Syrup 20 Ml PO PRN Q4HRS PRN Promethazine Hcl 6.25 Mg/5 Ml Syrup 20 Ml PO QID Percocet 7.5-325 Mg Tablet (Oxycodone/Acetaminophen) 1 Each Tablet 1 Tab PO QID PRN Voltaren (Diclofenac Sodium) 100 Gm Gel..gram. 1 Gm TP QID Tizanidine Hcl 4 Mg Tablet 1 Tab PO TID Xanax (Alprazolam) 0.5 Mg Tablet 1 Tab PO BID Gabapentin 600 Mg Tablet 600 Mg PO DAILY Losartan-Hctz 100-25 Mg Tab (Losartan/Hydrochlorothiazide) 1 Each Tablet 1 Tab PO DAILY Cyclobenzaprine Hcl 10 Mg Tablet 1 Tab PO PRN TID PRN Amlodipine Besylate 5 Mg Tablet 5 Mg PO DAILY Vitals/I & O Vital Sign - Last 24 Hours 07/24/18 07/24/18 07/24/18 07/24/18 11:09 11:57 15:21 16:06 Temp 99.2 97.8 99.2 97.8 Pulse 107 98 Resp 16 16 B/P (MAP) 125/60 (81) 101/57 (72) Pulse Ox 94 99 93 99 O2 Delivery Room Air Room Air Room Air Room Air 07/24/18 07/24/18 07/24/18 07/24/18 17:38 17:38 19:20 19:25 Temp 97.3 97.3 Pulse 98 85 Resp 18 B/P (MAP) 101/57 94/47 (63) Pulse Ox 95 O2 Delivery Room Air Room Air Room Air 07/24/18 07/24/18 07/24/18 07/24/18 19:25 20:49 23:10 23:50 Temp 98.5 98.5 Pulse 89 90 Resp 17 B/P (MAP) 99/49 99/49 (66) Pulse Ox 96 96 O2 Delivery Room Air Room Air Room Air 07/24/18 07/25/18 07/25/18 07/25/18 23:53 03:25 03:46 05:00 Temp 101.7 99.8 101.7 99.8 Pulse 98 Resp 17 B/P (MAP) 109/46 (67) Pulse Ox 93 O2 Delivery Room Air Room Air Room Air 07/25/18 07/25/18 07/25/18 07/25/18 05:30 07:35 08:41 09:25 Temp 99.2 99.2 Pulse 98 92 Resp 16 15 B/P (MAP) 109/46 133/61 (85) Pulse Ox 98 92 92 O2 Delivery Room Air Room Air Room Air O2 Flow Rate 2.0 Intake and Output 07/24/18 07/24/18 07/25/18 15:00 23:00 07:00 Intake Total 420 ml 100 ml 300 ml Balance 420 ml 100 ml 300 ml Nutrition Consultation Dietary Evaluation: Recommendations by RD: Increase Calorie Intake, Protein supplementation Comments: REC continue regular diet, honor food preferences REC Ensure TID (strawberry, vanilla) Expected Outcomes/Goals: PO intake to meet >75% est needs Malnutrition Findings: Food and Nutrition Intake (Sev: <50% est energy req 5days Body Fat Depletion (Non Severe: Mod to Severe Weight Status: Appropriate SANJUANITA PEÑA MD Jul 25, 2018 09:52
[2018-07-25] MEDS ORDERED: METO50TA6 PO (09:56)
[2018-07-25] MEDS ORDERED: Nicotine 21MG TD (09:56)
[2018-07-25] MEDS ORDERED: METH-364 PO (09:56)
[2018-07-25] MEDS ORDERED: ASPI-612 PO (09:56)
[2018-07-25 11:00] VITALS: BP 113/55
--- NOTE | 2018-07-25 11:11 | PDOC ---
PROGRESS NOTES Subjective Subjective Denied any diarrhea today Objective Objective Vital Signs Date Time Temp Pulse Resp B/P (MAP) Pulse Ox O2 Delivery O2 Flow Rate FiO2 07/25/18 10:25 14 92 Room Air 2.0 07/25/18 07:35 99.2 92 133/61 (85) 99.2 Intake and Output 07/25/18 06:59 Intake Total 820 ml Balance 820 ml Intake Oral 820 ml # Voids 6 Physical Exam Abdomen: Soft Heart: Normal S1, Normal S2, Other (ST) Extremities: No edema, Normal pulses, Other (cachectic) General: Alert, Oriented X3, Cooperative, No acute distress HEENT: Atraumatic Lungs: Clear to auscultation, Normal air movement, Other (tele ST) MUSCULOSKELETAL: No swelling Neuro: Normal speech, Sensation intact Psych/Mental Status: Mental status NL, Mood NL Skin: No rashes, No breakdown, No significant lesion Assessment Assessment 1. Diarrhea, improving. Treat per IM 2. Tachycardia, sinus. Reactive in the setting of electrolyte disturbance and hyperthyroidism. Telemetry did not show any other arrhythmias. Plan for 2-D echocardiogram as outpatient. 3. NSVT; most probably secondary to electrolyte abnormalities. No further e pisodes noted on telemetry. 4. Chronic CHF; compensated 6. Hypertension; controlled Plan Plan of Care Problems Medical Problems: (1) Diarrhea Status: Acute (2) Tachycardia Status: Acute (3) Urinary tract infection Status: Acute Comment Review of Relevant I have reviewed the following items suad (where applicable) has been applied. Labs Laboratory Tests Test 07/25/18 03:10 Sodium Level 135 mmol/L (136-145) Potassium Level 4.4 mmol/L (3.5-5.1) Chloride Level 103 mmol/L (98-107) Carbon Dioxide Level 27 mmol/L (21-32) Anion Gap 5 (6-14) Blood Urea Nitrogen 25 mg/dL (7-20) Creatinine 1.1 mg/dL (0.6-1.0) Estimated GFR (Cockcroft-Gault) 60.7 Glucose Level 111 mg/dL (70-99) Calcium Level 8.6 mg/dL (8.5-10.1) Medications Current Medications Aspirin (Ecotrin) 81 mg DAILYWBKFT PO Last administered on 07/25/18at 09:07; Start 07/24/18 at 16:00 Ciprofloxacin/ Dextrose 200 ml @ 200 mls/hr Q12HR IV Last administered on 07/25/18at 09:08; Start 07/25/18 at 09:00 Digoxin (Lanoxin) 500 mcg 1X ONCE IV ; Start 07/24/18 at 13:15; Stop 07/24/18 at 13:16; Status DC Lactobacillus Rhamnosus (Culturelle) 1 cap BID PO ; Start 07/25/18 at 21:00 Metoprolol Tartrate (Lopressor) 25 mg Q6HRS PO Last administered on 07/25/18at 05:30; Start 07/24/18 at 18:00 Potassium Chloride (Klor-Con) 40 meq DAILYWBKFT PO ; Start 07/25/18 at 08:00; Stop 07/25/18 at 08:28; Status DC Vitals/I & O Vital Sign - Last 24 Hours 07/24/18 07/24/18 07/24/18 07/24/18 11:57 15:21 16:06 17:38 Temp 97.8 97.8 Pulse 98 Resp 16 B/P (MAP) 101/57 (72) Pulse Ox 99 93 99 O2 Delivery Room Air Room Air Room Air Room Air 07/24/18 07/24/18 07/24/18 07/24/18 17:38 19:25 19:25 20:49 Temp 97.3 97.3 Pulse 98 85 Resp 18 B/P (MAP) 101/57 94/47 (63) Pulse Ox 95 96 O2 Delivery Room Air Room Air Room Air 07/24/18 07/24/18 07/24/18 07/25/18 23:10 23:50 23:53 03:25 Temp 98.5 98.5 Pulse 89 90 Resp 17 B/P (MAP) 99/49 99/49 (66) Pulse Ox 96 O2 Delivery Room Air Room Air Room Air 07/25/18 07/25/18 07/25/18 07/25/18 03:46 05:00 05:30 07:35 Temp 101.7 99.8 99.2 101.7 99.8 99.2 Pulse 98 98 92 Resp 17 16 B/P (MAP) 109/46 (67) 109/46 133/61 (85) Pulse Ox 93 98 O2 Delivery Room Air Room Air 4/07/25/18 07/25/18 07/25/18 08:00 08:41 09:25 10:25 Resp 15 14 Pulse Ox 92 92 92 O2 Delivery Room Air Room Air Room Air Room Air O2 Flow Rate 2.0 2.0 Intake and Output 07/24/18 07/24/18 07/25/18 14:59 22:59 06:59 Intake Total 420 ml 100 ml 300 ml Balance 420 ml 100 ml 300 ml GUCCI SCHMITZ MD Jul 25, 2018 11:11
[2018-07-25 14:45] VITALS: BP 115/56
--- NOTE | 2018-07-25 16:27 | PDOC ---
SURGICAL PROGRESS NOTE Subjective Pt without c/o today Vital Signs Vital Signs Date Time Temp Pulse Resp B/P (MAP) Pulse Ox O2 Delivery O2 Flow Rate FiO2 07/25/18 15:34 94 Room Air 07/25/18 14:45 98.6 91 30 115/56 (75) 98.6 07/25/18 10:25 2.0 I&O Intake and Output 07/25/18 06:59 Intake Total 820 ml Balance 820 ml Intake Oral 820 ml # Voids 6 General: Alert, Oriented X3, Cooperative, No acute distress, Other (thin cachetic) Abdomen: Soft Labs Laboratory Tests Test 07/24/18 04:00 07/25/18 03:10 White Blood Count 11.4 x10^3/uL (4.0-11.0) Red Blood Count 3.66 x10^6/uL (3.50-5.40) Hemoglobin 10.4 g/dL (12.0-15.5) Hematocrit 31.2 % (36.0-47.0) Mean Corpuscular Volume 85 fL (79-100) Mean Corpuscular Hemoglobin 28 pg (25-35) Mean Corpuscular Hemoglobin Concent 33 g/dL (31-37) Red Cell Distribution Width 15.2 % (11.5-14.5) Platelet Count 84 x10^3/uL (140-400) Neutrophils (%) (Auto) 82 % (31-73) Lymphocytes (%) (Auto) 8 % (24-48) Monocytes (%) (Auto) 10 % (0-9) Eosinophils (%) (Auto) 0 % (0-3) Basophils (%) (Auto) 0 % (0-3) Neutrophils # (Auto) 9.3 x10^3uL (1.8-7.7) Lymphocytes # (Auto) 0.9 x10^3/uL (1.0-4.8) Monocytes # (Auto) 1.1 x10^3/uL (0.0-1.1) Eosinophils # (Auto) 0.0 x10^3/uL (0.0-0.7) Basophils # (Auto) 0.0 x10^3/uL (0.0-0.2) Sodium Level 135 mmol/L (136-145) 135 mmol/L (136-145) Potassium Level 3.2 mmol/L (3.5-5.1) 4.4 mmol/L (3.5-5.1) Chloride Level 103 mmol/L (98-107) 103 mmol/L (98-107) Carbon Dioxide Level 26 mmol/L (21-32) 27 mmol/L (21-32) Anion Gap 6 (6-14) 5 (6-14) Blood Urea Nitrogen 25 mg/dL (7-20) 25 mg/dL (7-20) Creatinine 1.0 mg/dL (0.6-1.0) 1.1 mg/dL (0.6-1.0) Estimated GFR (Cockcroft-Gault) 67.8 60.7 Glucose Level 117 mg/dL (70-99) 111 mg/dL (70-99) Calcium Level 8.0 mg/dL (8.5-10.1) 8.6 mg/dL (8.5-10.1) Magnesium Level 1.9 mg/dL (1.8-2.4) Free Thyroxine 6.15 ng/dL (0.76-1.46) Free Triiodothyronine (T3) pg/mL 7.78 pg/mL (2.18-3.98) Laboratory Tests Test 07/25/18 03:10 Sodium Level 135 mmol/L (136-145) Potassium Level 4.4 mmol/L (3.5-5.1) Chloride Level 103 mmol/L (98-107) Carbon Dioxide Level 27 mmol/L (21-32) Anion Gap 5 (6-14) Blood Urea Nitrogen 25 mg/dL (7-20) Creatinine 1.1 mg/dL (0.6-1.0) Estimated GFR (Cockcroft-Gault) 60.7 Glucose Level 111 mg/dL (70-99) Calcium Level 8.6 mg/dL (8.5-10.1) Problem List Problems Medical Problems: (1) Diarrhea Status: Acute (2) Tachycardia Status: Acute (3) Urinary tract infection Status: Acute Assessment/Plan thyroid nodule, hyperthyroidism cont supportive care, correction of hyperthyroidism f/u for consideration of thyroidectomy MAYO MONTEZ MD Jul 25, 2018 16:27
[2018-07-25 19:00] VITALS: BP 128/71
[2018-07-25] MEDS: LACTOBACILLUS RHAMNOSUS GG 1 CAPSULE. PO SCH (21:14)
[2018-07-25 23:00] VITALS: BP 133/68
[2018-07-26] MEDS: ALBUTEROL SULFATE 2.5 MG/3 ML NEBU. NEB SCH ×4 (00:05→12:01)
[2018-07-26 03:00] VITALS: BP 123/61
[2018-07-26] MEDS: METOPROLOL TART IMMED RELEASE 25 MG TABLET. PO SCH (05:13)
[2018-07-26 05:43] LABS: BASO % 0 % (0-3); EOS % 0 % (0-3); HEMATOCRIT 30.4 % (36.0-47.0); LYMPH # 1.3 x10^3/uL (1.0-4.8); LYMPH % 25 % (24-48); MEAN CORPUSCULAR HEMOGLOBIN 28 pg (25-35); MEAN CORPUSCULAR HGB CONC 33 g/dL (31-37); MEAN CORPUSCULAR VOLUME 85 fL (79-100); MONO # 1.1 x10^3/uL (0.0-1.1); MONO % 22 % (0-9); NEUT # 2.6 x10^3uL (1.8-7.7); NEUT % 53 % (31-73); PLATELET COUNT 103 x10^3/uL (140-400); RED BLOOD COUNT 3.59 x10^6/uL (3.50-5.40); RED CELL DISTRIBUTION WIDTH 15.3 % (11.5-14.5)
[2018-07-26 07:13] LABS: % ATYL 1 % (0-0); % BANDS 1 % (0-9); % EOS 1 % (0-5); % LYMPHS 20 % (24-48); % MONOS 12 % (0-10); % SEGS 65 % (35-66)
[2018-07-26 07:14] LABS: OVALOCYTES OCC; PLT ESTIMATE DECREASED (ADEQUATE); POIKILOCYTOSIS PRESENT
[2018-07-26 07:54] VITALS: BP 151/68
[2018-07-26] MEDS: LACTOBACILLUS RHAMNOSUS GG 1 CAPSULE. PO SCH (08:20)
[2018-07-26] MEDS: methIMAzole 10 MG TABLET PO SCH (08:20)
[2018-07-26] MEDS: ASPIRIN ENTERIC COATED 81 MG TABLET.DR. PO SCH (08:21)
[2018-07-26] MEDS: CIPROFLOXACIN 400MG PREMIX 200 ML IV SCH (08:23)
[2018-07-26] MEDS: FLUTICASONE 50MCG/NASAL SPRAY 16GM BOTTLE. NS SCH (08:23)
[2018-07-26] MEDS: HYDROcodone/APAP 5/325MG 1 TAB TABLET PO PRN (08:27)
[2018-07-26] MEDS ORDERED: METOPROLOL TART IMMED RELEASE 50 MG TABLET. PO SCH (10:00)
[2018-07-26 10:27] VITALS: BP 121/55
[2018-07-26] MEDS ORDERED: CIPR500T94 PO (11:18)
--- NOTE | 2018-07-26 11:20 | SNU/HH DC ---
DISCHARGE WITH HOME HEALTH DISCHARGE INFORMATION: Discharge Date: Jul 26, 2018 Final Diagnosis: Problems Medical Problems: (1) Diarrhea Status: Acute (2) Tachycardia Status: Acute (3) Urinary tract infection Status: Acute Condition on Discharge: Stable CODE STATUS: Code Status: Full HOME HEALTH: Face to Face: I certify this patient is under my care and that I, or a nurse practitioner or physician's seed analysis laboratory assistant working with me, had a face to face encounter that meets the physician face to face encounter requirements with this patient on []. RN For Eval/Treatment: Yes Physical Therapy For: Evalulation/Treatment Occupational Therapy For: Evaluation/Treatment Home Health Aide For: Self-care LD TEACHER For: Community Resources Pt Meets Homebound Status: Extreme weakness w/ amb. POST DISCHARGE ORDERS: Activity Instructions for Disc: Activity as tolerated Weight Bearing Status after Di: As tolerated DIET AFTER DISCHARGE: Regular CHECKS AFTER DISCHARGE: Checks after discharge: Check blood press - daily, Check blood sugar, ac/hs FOLLOW-UP: PCP to follow Home Health: Dr Jones in 6 weeks regarding multinodular goiter Follow up with: PCP or coal deliverer regarding hyperthyroidism-new diagnosis - TREATMENT/EQUIPMENT ORDERS: Adaptive Equipment Issued: None CERTIFICATION STATEMENT: Certification Statement: Certification Statement: Based on the above finding, I certify that this patient is confined to the home and needs intermittent fci care, physical therapy and/or speech therapy, or continues to need occupational therapy.~ This patient is under my care, and I have initiated the establishment of the plan of care.~ This patient will be followed by myself or a community physician who will periodically review the plan of care. Home Meds Active Scripts Albuterol Sulfate (VENTOLIN HFA INHALER) 18 Gm Hfa.aer.ad, 2 PUFF INH Q4HRS for FOR ASTHMA, #1 INHALER 0 Refills Prov:[employer] 06/14/18 Prednisone (PREDNISONE) 50 Mg Tablet, 1 TAB PO DAILY, #5 TAB Prov:MUTUNGAPRO [employer]OCIATE 06/14/18 Clindamycin Hcl (CLINDAMYCIN HCL) 300 Mg Capsule, 1 CAP PO TID, #30 CAP Prov:MUTUNGA,PRO [employer] ASSOCIATE 06/14/18 Benzonatate (TESSALON PERLE) 100 Mg Capsule, 1 CAP PO TID, #30 CAP Prov:MUTUNGAPRO [employer] ASSOCIATE 06/14/18 Fluticasone Propionate (Flonase Allergy Relief) 9.9 Ml [place].susp, 2 SPRAYS NS DAILY, #1 BOTTLE Prov:[employer] 06/14/18 Reported Medications Promethazine Hcl (PROMETHAZINE HCL) 6.25 Mg/5 Ml Syrup, 20 ML PO PRN Q4HRS PRN for NAUSEA/VOMITING, #400 ML 07/24/18 Promethazine Hcl (PROMETHAZINE HCL) 6.25 Mg/5 Ml Syrup, 20 ML PO QID for N/V, #400 ML 07/24/18 Oxycodone/Apap 7.5-325 (PERCOCET 7.5-325 MG TABLET ) 1 Each Tablet, 1 TAB PO QID PRN for PAIN, TAB 0 Refills 07/24/18 Diclofenac Sodium (VOLTAREN) 100 Gm Gel..gram., 1 GM TP QID for PAIN, #100 GM 2 Refills 07/24/18 Tizanidine Hcl (TIZANIDINE HCL) 4 Mg Tablet, 1 TAB PO TID for MUSCLE SPASMS , #90 TAB 07/24/18 Alprazolam (XANAX) 0.5 Mg Tablet, 1 TAB PO BID for ANXIETY, #60 TAB 07/24/18 Gabapentin (GABAPENTIN) 600 Mg Tablet, 600 MG PO DAILY for NEUROGENIC PAIN, TAB 07/24/18 Losartan/Hydrochlorothiazide (LOSARTAN-HCTZ 100-25 MG TAB) 1 Each Tablet, 1 TAB PO DAILY for HTN, #30 TAB 5 Refills 07/24/18 Cyclobenzaprine Hcl (CYCLOBENZAPRINE HCL) 10 Mg Tablet, 1 TAB PO PRN TID PRN for MUSCLE SPASMS, #90 TAB 07/24/18 Amlodipine Besylate (AMLODIPINE BESYLATE) 5 Mg Tablet, 5 MG PO DAILY for HTN, TAB 07/24/18 SANJUANITA PEÑA MD Jul 26, 2018 11:20
--- NOTE | 2018-07-26 11:24 | PDOC3 ---
Discharge Summary Visit Information Date of Admission: Jul 23, 2018 Date of Discharge: Jul 26, 2018 Admitting Diagnosis Comment: Nodular goiter/hyperthyroidism diagnosis TSH undetectable with appropriately T3-T4 Cachexia, diarrhea Nonsustained V. tach A. fib in the background of hyperthyroidism - new lukasz gnoses Severe PCM Escherichia coli UTI, fevers Smoker Final Diagnosis Problems Medical Problems: (1) Diarrhea Status: Acute (2) Tachycardia Status: Acute (3) Urinary tract infection Status: Acute Brief Hospital Course Allergies Allergies Coded Allergies Type Severity Reaction Last Updated Verified Penicillins Allergy Severe anaphlaxis 06/14/18 Yes Vital Signs Vital Signs Date Time Temp Pulse Resp B/P (MAP) Pulse Ox O2 Delivery O2 Flow Rate FiO2 07/26/18 10:27 99.0 81 16 121/55 (77) 96 Room Air 99.0 07/25/18 10:25 2.0 Lab Results Laboratory Tests Test 07/25/18 03:10 07/26/18 04:44 Sodium Level 135 mmol/L (136-145) Potassium Level 4.4 mmol/L (3.5-5.1) Chloride Level 103 mmol/L (98-107) Carbon Dioxide Level 27 mmol/L (21-32) Anion Gap 5 (6-14) Blood Urea Nitrogen 25 mg/dL (7-20) Creatinine 1.1 mg/dL (0.6-1.0) Estimated GFR (Cockcroft-Gault) 60.7 Glucose Level 111 mg/dL (70-99) Calcium Level 8.6 mg/dL (8.5-10.1) White Blood Count 5.0 x10^3/uL (4.0-11.0) Red Blood Count 3.59 x10^6/uL (3.50-5.40) Hemoglobin 10.0 g/dL (12.0-15.5) Hematocrit 30.4 % (36.0-47.0) Mean Corpuscular Volume 85 fL (79-100) Mean Corpuscular Hemoglobin 28 pg (25-35) Mean Corpuscular Hemoglobin Concent 33 g/dL (31-37) Red Cell Distribution Width 15.3 % (11.5-14.5) Platelet Count 103 x10^3/uL (140-400) Neutrophils (%) (Auto) 53 % (31-73) Lymphocytes (%) (Auto) 25 % (24-48) Monocytes (%) (Auto) 22 % (0-9) Eosinophils (%) (Auto) 0 % (0-3) Basophils (%) (Auto) 0 % (0-3) Neutrophils # (Auto) 2.6 x10^3uL (1.8-7.7) Lymphocytes # (Auto) 1.3 x10^3/uL (1.0-4.8) Monocytes # (Auto) 1.1 x10^3/uL (0.0-1.1) Eosinophils # (Auto) 0.0 x10^3/uL (0.0-0.7) Basophils # (Auto) 0.0 x10^3/uL (0.0-0.2) Segmented Neutrophils % 65 % (35-66) Band Neutrophils % 1 % (0-9) Lymphocytes % 20 % (24-48) Atypical Lymphocytes % (Manual) 1 % (0-0) Monocytes % 12 % (0-10) Eosinophils % 1 % (0-5) Platelet Estimate Decreased (ADEQUATE) Large Platelets Occ Poikilocytosis Present Ovalocytes Occ Laboratory Tests Test 07/26/18 04:44 White Blood Count 5.0 x10^3/uL (4.0-11.0) Red Blood Count 3.59 x10^6/uL (3.50-5.40) Hemoglobin 10.0 g/dL (12.0-15.5) Hematocrit 30.4 % (36.0-47.0) Mean Corpuscular Volume 85 fL (79-100) Mean Corpuscular Hemoglobin 28 pg (25-35) Mean Corpuscular Hemoglobin Concent 33 g/dL (31-37) Red Cell Distribution Width 15.3 % (11.5-14.5) Platelet Count 103 x10^3/uL (140-400) Neutrophils (%) (Auto) 53 % (31-73) Lymphocytes (%) (Auto) 25 % (24-48) Monocytes (%) (Auto) 22 % (0-9) Eosinophils (%) (Auto) 0 % (0-3) Basophils (%) (Auto) 0 % (0-3) Neutrophils # (Auto) 2.6 x10^3uL (1.8-7.7) Lymphocytes # (Auto) 1.3 x10^3/uL (1.0-4.8) Monocytes # (Auto) 1.1 x10^3/uL (0.0-1.1) Eosinophils # (Auto) 0.0 x10^3/uL (0.0-0.7) Basophils # (Auto) 0.0 x10^3/uL (0.0-0.2) Segmented Neutrophils % 65 % (35-66) Band Neutrophils % 1 % (0-9) Lymphocytes % 20 % (24-48) Atypical Lymphocytes % (Manual) 1 % (0-0) Monocytes % 12 % (0-10) Eosinophils % 1 % (0-5) Platelet Estimate Decreased (ADEQUATE) Large Platelets Occ Poikilocytosis Present Ovalocytes Occ Brief Hospital Course Ms. Levin is a 63 old AA female who lives with daughter, smoker, came in nonsustained V. tach, diarrhea. Almost had a crash cart at the ER. Down to 130s after Cardizem push On workup found to have hyperthyroidism and an ultrasound multinodular goiter. Consulted GS, plan for thyroid resection after 6 weeks time if less hot. I had to start Tapazole 10 twice a day and beta rolf by cardiology now metoprolol 50 twice a day Course remarkable for fevers also had UTI. Could not wait for urine sensitivities. Grew Escherichia coli. I empirically treated for Escherichia coli Cipro because of penicillin allergy which included swelling hives almost anaphylactic reaction PT recommended SNU but family and patient does not want, only agreeable to home health Discharge disposition home health New meds beta rolf twice a day, Tapazole twice a day, Cipro for 7 days Instructions follow-up Dr. Jones 6 weeks and PCP 6 weeks needs TSH in 6 weeks' time and I have provided Rx DC time 34 minutes cumulative Discharge Information Condition at Discharge: Improved, Stable Follow Up: Weeks (PCP in 6 weeks for repeat TSH and new diagnosis of hyperthyroidism, Dr. Jones 6 weeks for multinodular goiter planned for thyroid resection) Disposition/Orders: D/C to Home w/ HH Scheduled Albuterol Sulfate (Ventolin Hfa Inhaler) 18 Gm Hfa.aer.ad, 2 PUFF INH Q4HRS for FOR ASTHMA, #1 Ref 0 Prescribed by: Nieves Villafana APRN on 06/14/18 1207 Last Action: Converted on 07/23/18 1714 by SANJUANITA TERMULO Alprazolam (Xanax) 0.5 Mg Tablet, 1 TAB PO BID for ANXIETY, #60 (Reported) Entered as Reported by: MICKY LOPEZ on 07/24/181508 Last Taken: UNKNOWN on Unknown Date & Time Last Action: New Order on 07/24/181508 by MICKY LOPEZ Amlodipine Besylate (Amlodipine Besylate) 5 Mg Tablet, 5 MG PO DAILY for HTN, (Reported) Entered as Reported by: MICKY LOPEZ on 07/24/181508 Last Taken: UNKNOWN on Unknown Date & Time Last Action: New Order on 07/24/181508 by MICKY LOPEZ Benzonatate (Tessalon Perle) 100 Mg Capsule, 1 CAP PO TID, #30 Prescribed by: Nieves Villafana APRN on 06/14/181206 Last Action: HELD on 07/23/181714 by SANJUANITA PEÑA Clindamycin Hcl (Clindamycin Hcl) 300 Mg Capsule, 1 CAP PO TID, #30 Prescribed by: Nieves Villafana APRN on 06/14/181206 Last Action: HELD on 07/23/181714 by SANJUANITA PEÑA Diclofenac Sodium (Voltaren) 100 Gm Gel..gram., 1 GM TP QID for PAIN, #100 Ref 2 (Reported) Entered as Reported by: MICKY LOPEZ on 07/24/181508 Last Taken: UNKNOWN on Unknown Date & Time Last Action: New Order on 07/24/181508 by MICKY LOPEZ Fluticasone Propionate (Flonase Allergy Relief) 9.9 Ml [place].susp, 2 SPRAYS NS DAILY, #1 Prescribed by: Nieves Villafana APRN on 06/14/181206 Last Action: Converted on 07/23/181714 by SANJUANITA PEÑA Gabapentin (Gabapentin) 600 Mg Tablet, 600 MG PO DAILY for NEUROGENIC PAIN, (Reported) Entered as Reported by: MICKY LOPEZ on 07/24/181508 Last Taken: UNKNOWN on Unknown Date & Time Last Action: New Order on 07/24/181508 by MICKY LOPEZ Losartan/Hydrochlorothiazide (Losartan-Hctz 100-25 Mg Tab) 1 Each Tablet, 1 TAB PO DAILY for HTN, #30 Ref 5 (Reported) Entered as Reported by: MICKY LOPEZ on 07/24/181508 Last Taken: UNKNOWN on Unknown Date & Time Last Action: New Order on 07/24/181508 by MICKY LOPEZ Prednisone (Prednisone) 50 Mg Tablet, 1 TAB PO DAILY, #5 Prescribed by: Nieves Villafana APRN on 06/14/18 1207 Last Action: HELD on 07/23/181714 by SANJUANITA PEÑA Promethazine Hcl (Promethazine Hcl) 6.25 Mg/5 Ml Syrup, 20 ML PO QID for N/V, #400 (Reported) Entered as Reported by: MICKY LOPEZ on 07/24/181508 Last Action: New Order on 07/24/181508 by MICKY LOPEZ Tizanidine Hcl (Tizanidine Hcl) 4 Mg Tablet, 1 TAB PO TID for MUSCLE SPASMS , #90 (Reported) Entered as Reported by: MICKY LOPEZ on 07/24/181508 Last Taken: UNKNOWN on Unknown Date & Time Last Action: New Order on 07/24/181508 by MICKY LOPEZ Scheduled PRN Cyclobenzaprine Hcl (Cyclobenzaprine Hcl) 10 Mg Tablet, 1 TAB PO PRN TID PRN for MUSCLE SPASMS, #90 (Reported) Entered as Reported by: MICKY LOPEZ on 07/24/181508 Last Taken: UNKNOWN on Unknown Date & Time Last Action: New Order on 07/24/181508 by MICKY LOPEZ Oxycodone/Apap 7.5-325 (Percocet 7.5-325 Mg Tablet ) 1 Each Tablet, 1 TAB PO QID PRN for PAIN, Ref 0 (Reported) Entered as Reported by: MICKY LOPEZ on 07/24/181508 Last Taken: UNKNOWN on Unknown Date & Time Last Action: New Order on 07/24/181508 by MICKY LOPEZ Promethazine Hcl (Promethazine Hcl) 6.25 Mg/5 Ml Syrup, 20 ML PO PRN Q4HRS PRN for NAUSEA/VOMITING, #400 (Reported) Entered as Reported by: MICKY LOPEZ on 07/24/181508 Last Taken: UNKNOWN on Unknown Date & Time Last Action: New Order on 07/24/181508 by SANJUANITA EMERSON MD Jul 26, 2018 11:24
--- NOTE | 2018-07-26 11:35 | PDOC ---
PROGRESS NOTES Subjective Subjective No new complaints. Patient wants to go home. Objective Objective Vital Signs Date Time Temp Pulse Resp B/P (MAP) Pulse Ox O2 Delivery O2 Flow Rate FiO2 07/26/18 10:27 99.0 81 16 121/55 (77) 96 Room Air 99.0 07/25/18 10:25 2.0 Intake and Output 07/26/18 07:00 Intake Total 840 ml Balance 840 ml Intake Oral 640 ml IV Total 200 ml # Voids 1 Physical Exam Abdomen: Soft Heart: Normal S1, Normal S2, Other (ST) Extremities: No edema, Normal pulses, Other (cachectic) General: Alert, Oriented X3, Cooperative, No acute distress, Other (thin cachetic) HEENT: Atraumatic Lungs: Clear to auscultation, Normal air movement, Other (tele ST) MUSCULOSKELETAL: No swelling Neuro: Normal speech, Sensation intact Psych/Mental Status: Mental status NL, Mood NL Skin: No rashes, No breakdown, No significant lesion Assessment Assessment 1. Diarrhea, improved. Treat per IM 2. Tachycardia, sinus. Reactive in the setting of electrolyte disturbance and hyperthyroidism. Telemetry did not show any other arrhythmias. Plan for 2-D echocardiogram as outpatient. 3. NSVT; most probably secondary to electrolyte abnormalities. No further episodes noted on telemetry. 4. Chronic CHF; compensated 6. Hypertension; controlled Plan Plan of Care Problems Medical Problems: (1) Diarrhea Status: Acute (2) Tachycardia Status: Acute (3) Urinary tract infection Status: Acute Comment Review of Relevant I have reviewed the following items suad (where applicable) has been applied. Labs Laboratory Tests Test 07/26/18 04:44 White Blood Count 5.0 x10^3/uL (4.0-11.0) Red Blood Count 3.59 x10^6/uL (3.50-5.40) Hemoglobin 10.0 g/dL (12.0-15.5) Hematocrit 30.4 % (36.0-47.0) Mean Corpuscular Volume 85 fL (79-100) Mean Corpuscular Hemoglobin 28 pg (25-35) Mean Corpuscular Hemoglobin Concent 33 g/dL (31-37) Red Cell Distribution Width 15.3 % (11.5-14.5) Platelet Count 103 x10^3/uL (140-400) Neutrophils (%) (Auto) 53 % (31-73) Lymphocytes (%) (Auto) 25 % (24-48) Monocytes (%) (Auto) 22 % (0-9) Eosinophils (%) (Auto) 0 % (0-3) Basophils (%) (Auto) 0 % (0-3) Neutrophils # (Auto) 2.6 x10^3uL (1.8-7.7) Lymphocytes # (Auto) 1.3 x10^3/uL (1.0-4.8) Monocytes # (Auto) 1.1 x10^3/uL (0.0-1.1) Eosinophils # (Auto) 0.0 x10^3/uL (0.0-0.7) Basophils # (Auto) 0.0 x10^3/uL (0.0-0.2) Segmented Neutrophils % 65 % (35-66) Band Neutrophils % 1 % (0-9) Lymphocytes % 20 % (24-48) Atypical Lymphocytes % (Manual) 1 % (0-0) Monocytes % 12 % (0-10) Eosinophils % 1 % (0-5) Platelet Estimate Decreased (ADEQUATE) Large Platelets Occ Poikilocytosis Present Ovalocytes Occ Microbiology 07/23/18 Urine Culture - Preliminary, Resulted 07/23/18 Urine Culture Result 1 (SUMMER) - Preliminary, Resulted Medications Current Medications Lactobacillus Rhamnosus (Culturelle) 1 cap BID PO Last administered on 07/26/18at 08:20; Start 07/25/18 at 21:00 Metoprolol Tartrate (Lopressor) 50 mg BID PO Last administered on 07/26/18at 10:24; Start 07/26/18 at 10:00 Vitals/I & O Vital Sign - Last 24 Hours 07/25/18 07/25/18 07/25/18 07/25/18 12:21 12:30 14:45 15:34 Temp 98.6 98.6 Pulse 87 91 Resp 30 B/P (MAP) 113/55 115/56 (75) Pulse Ox 96 94 O2 Delivery Room Air Room Air Room Air 07/25/18 07/25/18 07/25/18 07/25/18 18:24 18:35 19:00 19:37 Temp 98.6 98.6 Pulse 91 80 Resp 17 B/P (MAP) 115/56 128/71 (90) Pulse Ox 94 96 O2 Delivery Room Air Room Air Room Air 07/25/18 07/25/18 07/26/18 07/26/18 23:00 23:28 00:09 03:00 Temp 98.7 99.7 98.7 99.7 Pulse 93 93 86 Resp 18 16 B/P (MAP) 133/68 (89) 133/68 123/61 (81) Pulse Ox 91 92 O2 Delivery Room Air Room Air Room Air 07/26/18 07/26/18 07/26/18 07/26/18 05:13 07:35 07:54 08:06 Temp 98.4 98.4 Pulse 86 100 Resp 16 B/P (MAP) 123/61 151/68 (95) Pulse Ox 94 95 O2 Delivery Room Air Room Air Room Air 07/26/18 07/26/18 07/26/18 07/26/18 08:27 09:25 10:24 10:27 Temp 99.0 99.0 Pulse 100 81 Resp 16 B/P (MAP) 122/59 121/55 (77) Pulse Ox 95 95 96 O2 Delivery Room Air Room Air Room Air Intake and Output 07/25/18 07/25/18 07/26/18 15:00 23:00 07:00 Intake Total 200 ml 620 ml 20 ml Balance 200 ml 620 ml 20 ml GUCCI SCHMITZ MD Jul 26, 2018 11:35
--- NOTE | 2018-07-26 13:49 | NUR ---
discharge instructions discussed with patient and patients daughter. prescriptions for ASA, cipro, metoprolol tart, tapazole, and nicotine patch given to patient. patient going home with [facility]. patients tele monitor removed and iv removed. patient stable at this time with no complaints.
== END 2018-07-26 14:18 | disposition home health service (06) | DRG 871 ==
LOC: ER 12:33 → 2 NORTH 16:00
PROVIDERS: ADMIT Internal Medicine; ATTEND Internal Medicine
DX: A41.9 Sepsis, unspecified organism (principal); N17.0 Acute kidney failure with tubular necrosis; E43 Unspecified severe protein-calorie malnutrition; E87.1 Hypo-osmolality and hyponatremia; I47.2 Ventricular tachycardia; N39.0 Urinary tract infection, site not specified; R64 Cachexia; Z68.1 Body mass index [BMI] 19.9 or less, adult; R19.7 Diarrhea, unspecified; E05.20 Thyrotoxicosis with toxic multinodular goiter without thyrotoxic crisis or storm; I48.91 Unspecified atrial fibrillation; E83.42 Hypomagnesemia; B96.20 Unspecified Escherichia coli [E. coli] as the cause of diseases classified elsewhere; E87.6 Hypokalemia; F41.9 Anxiety disorder, unspecified; G89.29 Other chronic pain; F17.210 Nicotine dependence, cigarettes, uncomplicated; F32.9 Major depressive disorder, single episode, unspecified; I11.0 Hypertensive heart disease with heart failure; I50.9 Heart failure, unspecified; M19.90 Unspecified osteoarthritis, unspecified site; J45.909 Unspecified asthma, uncomplicated; Z82.49 Family history of ischemic heart disease and other diseases of the circulatory system; Z88.0 Allergy status to penicillin; Z87.01 Personal history of pneumonia (recurrent); Z79.899 Other long term (current) drug therapy; Z71.6 Tobacco abuse counseling; Z98.51 Tubal ligation status; Z79.01 Long term (current) use of anticoagulants
CPT/HCPCS: 36415; 71045; 76536; 80048; 80053; 81001; 82310; 83735; 84439; 84443; 84481; 84484; 85007; 85025; 87086; 87186; 93005; 94640; 94760; 96361; 96365; 96366; 96375; J0744; J1160; J1956; J3010; J3475; J3490; J7030; J7613; 97110; 97535; 99285-25

== ENCOUNTER 2019-03-19 22:52 | Inpatient (IN) | payer BC ==
[~2019-03-19] VITALS: Ht 144.8 cm; Wt 54.4 kg
[~2019-03-19 22:52] MED LIST changes: +ALBU2.5V8 IH; +ALPR0.5T PO; +AMLO5TAB10 PO; +APIX5TAB PO; +ASPI-612 PO; +CIPR500T94 PO; +CYCL10TA2 PO; +DICL100G18 TP; +FURO-68 PO; +FURO-69 PO; +GABA600T7 PO; +HYDR-2761 PO; +LEVO25TA55 PO; +LOSA1TAB22 PO; +METH-364 PO; +METO25TA4 PO; +METO50TA6 PO; +Nicotine 21MG TD; +OXYC1TAB19 PO; +PROM6.257 PO; +TIZA4TAB2 PO; +[UNRECOGNIZED DRUG - CODE] PO
--- NOTE | 2019-03-20 00:05 | PHYS DOC ---
Past Medical History Past Medical History: Hypertension, Hypothyroid, Other Additional Past Medical Histor: chronic left knee pain,bld transfusion Past Surgical History: Other Additional Past Surgical Histo: D&C, thyroidectomy Smoking: Cigarettes Alcohol Use: None Drug Use: None Adult General Chief Complaint Chief Complaint: ALTERED MENTAL STATUS HPI HPI Patient is a 63-year-old female with a past medical history of heart failure, atrial flutter, and status post thyroidectomy 2 weeks ago as presenting to the emergency department with altered mental status. Patient's daughter at bedside states that she has periods of confusion where she doesn't make sense when she speaks and she does things that are out of character and the daughter states that these episodes began after the patient had thyroid surgery. The patient is alert and oriented 4 at this time and does not recall not remembering things like the daughter states. The daughter states that she is overall altered since thyroid surgery. The patient denies trauma, fevers, chills, abdominal pain, nausea, vomiting, burning with urination, and increased frequency. The patient states that she has mild shortness of breath and cough at this time. HPI limited due to altered mental status. Review of Systems Review of Systems Constitutional: Denies fever or chills Respiratory: Reports mild cough and shortness of breath Cardiovascular: Denies chest pain or palpitations GI: Denies abdominal pain, nausea, or vomiting : Denies dysuria or hematuria Integument: Denies rash or skin lesions Neurologic: Denies headache; reports altered mental status ROS limited due to altered mental status Current Medications Current Medications Current Medications Medications (Trade) Dose Ordered Sig/Karen Start Time Stop Time Status Last Admin Dose Admin Bumetanide (Bumex) 0.5 mg 1X ONCE 03/20/19 02:00 03/20/19 02:01 DC 03/20/19 01:56 0.5 MG Ondansetron HCl (Zofran) 4 mg PRN Q8HRS PRN 03/20/19 01:45 03/21/19 01:44 Allergies Allergies Allergies Coded Allergies Type Severity Reaction Last Updated Verified Penicillins Allergy Severe anaphylaxis 03/03/19 Yes Physical Exam Physical Exam Constitutional: Well developed, well nourished, no acute distress, non-toxic appearance HENT: Normocephalic, atraumatic, well-healed midline thyroidectomy scar, hoarse voice status post thyroid surgery Eyes: PERRL, EOMI, conjunctiva normal, no discharge Neck: Normal range of motion, no tenderness, supple Cardiovascular: Heart rate normal, irregular rhythm Lungs & Thorax: Bilateral breath sounds clear to auscultation, no wheezing Abdomen: Soft, no tenderness Skin: Warm, dry, no erythema, no rash Back: No tenderness, no CVA tenderness Extremities: No tenderness, ROM intact, no edema Neurologic: Alert and oriented X 3, normal motor function, normal sensory function, no focal deficits noted Psychologic: Affect flat, judgement abnormal Current Patient Data Vital Signs Vital Signs Date Time Temp Pulse Resp B/P (MAP) Pulse Ox O2 Delivery O2 Flow Rate FiO2 03/20/19 01:00 112 03/19/19 22:58 96.5 16 127/75 (92) 97 Room Air 96.5 Lab Values Laboratory Tests Test 03/19/19 23:01 03/19/19 23:45 03/20/19 00:03 03/20/19 00:17 Glucose (Fingerstick) 96 mg/dL (70-99) Lactic Acid Level 4.8 mmol/L (0.4-2.0) *H White Blood Count 4.8 x10^3/uL (4.0-11.0) Red Blood Count 4.58 x10^6/uL (3.50-5.40) Hemoglobin 13.9 g/dL (12.0-15.5) Hematocrit 42.5 % (36.0-47.0) Mean Corpuscular Volume 93 fL (79-100) Mean Corpuscular Hemoglobin 30 pg (25-35) Mean Corpuscular Hemoglobin Concent 33 g/dL (31-37) Red Cell Distribution Width 16.1 % (11.5-14.5) H Platelet Count 174 x10^3/uL (140-400) Neutrophils (%) (Auto) 74 % (31-73) H Lymphocytes (%) (Auto) 19 % (24-48) L Monocytes (%) (Auto) 7 % (0-9) Eosinophils (%) (Auto) 0 % (0-3) Basophils (%) (Auto) 0 % (0-3) Neutrophils # (Auto) 3.5 x10^3/uL (1.8-7.7) Lymphocytes # (Auto) 0.9 x10^3/uL (1.0-4.8) L Monocytes # (Auto) 0.3 x10^3/uL (0.0-1.1) Eosinophils # (Auto) 0.0 x10^3/uL (0.0-0.7) Basophils # (Auto) 0.0 x10^3/uL (0.0-0.2) Prothrombin Time 50.4 SEC (11.7-14.0) H Prothrombin Time INR 5.5 (0.8-1.1) *H Activated Partial Thromboplast Time 64 SEC (24-38) H Sodium Level 136 mmol/L (136-145) Potassium Level 3.5 mmol/L (3.5-5.1) Chloride Level 99 mmol/L (98-107) Carbon Dioxide Level 22 mmol/L (21-32) Anion Gap 15 (6-14) H Blood Urea Nitrogen 85 mg/dL (7-20) H Creatinine 1.9 mg/dL (0.6-1.0) H Estimated GFR (Cockcroft-Gault) 32.3 BUN/Creatinine Ratio 45 (6-20) H Glucose Level 109 mg/dL (70-99) H Calcium Level 7.7 mg/dL (8.5-10.1) L Magnesium Level 2.4 mg/dL (1.8-2.4) Total Bilirubin 0.9 mg/dL (0.2-1.0) Aspartate Amino Transferase (AST) 46 U/L (15-37) H Alanine Aminotransferase (ALT) 31 U/L (14-59) Alkaline Phosphatase 102 U/L (46-116) UY-Iah-Z-Type Natriuretic Peptide > 19682 pg/mL (0-124) H Total Protein 7.9 g/dL (6.4-8.2) Albumin 3.3 g/dL (3.4-5.0) L Albumin/Globulin Ratio 0.7 (1.0-1.7) L Thyroid Stimulating Hormone (TSH) 0.532 uIU/mL (0.358-3.74) Free Thyroxine 0.47 ng/dL (0.76-1.46) L Free Triiodothyronine (T3) pg/mL < 0.50 pg/mL (2.18-3.98) L Urine Collection Type U cath Urine Color Yellow Urine Clarity Clear Urine pH 5.5 Urine Specific Central 1.015 Urine Protein Negative mg/dL (NEG-TRACE) Urine Glucose (UA) Negative mg/dL (NEG) Urine Ketones (Stick) Negative mg/dL (NEG) Urine Blood Small (NEG) Urine Nitrite Negative (NEG) Urine Bilirubin Negative (NEG) Urine Urobilinogen Dipstick 1.0 mg/dL (0.2 mg/dL) Urine Leukocyte Esterase Moderate (NEG) Urine RBC 3-5 /HPF (0-2) Urine WBC 11-20 /HPF (0-4) Urine Squamous Epithelial Cells Few /LPF Urine Bacteria Many /HPF (0-FEW) Urine Hyaline Casts Moderate /HPF Laboratory Tests 03/20/19 00:03 Laboratory Tests 03/20/19 00:03 EKG EKG @2307 irregular rhythm at 95BPM in atrial flutter, left axis deviation, ST changes consistent with old inferior infarct Radiology/Procedures Radiology/Procedures PROCEDURE: CT HEAD WO CONTRAST CT HEAD WO CONTRAST Date: 03/19/2019 11:58 PM Clinical Indication: Comparison: None. Technique: 5 mm axial tomographic images were obtained of the head without contrast. These were viewed on brain and bone windows. One or more of the following dose reduction techniques were utilized: Automated exposure control (AEC), Adjustment of mA and/or kV according to patient size, Use of iterative reconstruction technique such as ASiR, CT scan done according to ALARA and image gently/image wisely Findings: Mild generalized cerebral and cerebellar volume loss. Mild nonspecific periventricular hypoattenuation, most commonly seen with chronic small vessel ischemic disease. Calcified atherosclerosis of the bilateral cavernous and paraclinoid internal carotid arteries. Chronic left basal ganglia lacunar infarct. Small area of right cerebellar hypoattenuation. No intra- or extra-axial mass or fluid collection. No acute hemorrhage. The ventricles are normal in size, shape, and morphology. The cortes-white matter junction is normal. The subarachnoid cisterns are patent. The visualized paranasal sinuses are normal. The visualized portions of the orbits and globes are normal. The mastoid air cells are clear. The shop firer/fireman topogram shows no lytic lesion or fracture. Impression: Small region of hypoattenuation in the right cerebellum, which likely represents chronic or potentially subacute ischemia. Correlate with patient's history, and if clinically warranted MRI could be obtained. Mild cerebral volume loss. Mild chronic small vessel ischemic disease. Electronically signed by: Luis Alberto Linares MD (03/20/2019 1:03 AM) [facility] [place] PROCEDURE: PORTABLE CHEST 1V PORTABLE CHEST 1V INDICATION: Dyspnea. COMPARISON STUDY: 02/13/2019. FINDINGS: Lungs: Normal lung volume. Bilateral perihilar and basilar heterogeneous opacities. Indistinct pulmonary vasculature. Pleura: Small right pleural effusion. Heart and Mediastinum: Cardiomegaly. Tortuous thoracic aorta. IMPRESSION: 1. Bilateral perihilar and basilar opacities, likely edema. 2. Small right pleural effusion. Electronically signed by: Luis Alberto Linares MD (03/20/2019 3:44 AM) [facility] Course & Med Decision Making Course & Med Decision Making Pertinent Labs and Imaging studies reviewed. (See chart for details) Patient is a 63-year-old female with past medical history of atrial flutter, heart failure, and status post thyroidectomy 2 weeks ago that is presenting to the emergency department with altered mental status. Patient was seen and examined at bedside. Labs and imaging ordered. EKG shows irregular rhythm at 95BPM in atrial flutter, left axis deviation, ST changes consistent with old inferior infarct CT head within normal limits. Chest x-ray displays increasing vascular congestion with focal opacity in the right middle lobe. Labs show INR of 5.5, calcium 7.7, creatinine of 1.9 increased from baseline of 1.1, BNP greater than 35,000 Lactic 4.8 Patient meets SIRS criteria with temperature of 96.8 and pulse greater than 90. Patient needs septic shock criteria with lactic greater than 4. Fluids and broad-spectrum antibiotics given. Source of infection most likely to be urine, UA positive for urinary tract infection. Discussed admission with patient and family, agreeable Patient requiring admission for further evaluation and treatment. Discussed with Dr. Amanda (hospitalist) who is in agreement with admission. Discussed findings and plan with patient and family, who acknowledge understanding and ag reement. Remberto Disclaimer Dragon Disclaimer This electronic medical record was generated, in whole or in part, using a voice recognition dictation system. Departure Departure Impression: Primary Impression: Altered mental status Additional Impressions: Elevated INR CHF exacerbation Acute renal insufficiency UTI (urinary tract infection) Septic shock Disposition: ADMITTED INPATIENT Admitting Physician: DEB (Emilie Pompa) Condition: GUARDED Referrals: MICHAEL VALENTIN (PCP) Date and Time of Reassessment Date: Mar 20, 2019 Time: 01:30 Fluid Challenge Is the fluid challenge complet: No IBW Target Volume Used: No BMI > 30: No Vital Signs Vital Signs: Vital Signs Date Time Temp Pulse Resp B/P (MAP) Pulse Ox O2 Delivery O2 Flow Rate FiO2 03/20/19 01:00 112 03/19/19 22:58 96.5 16 127/75 (92) 97 Room Air 96.5 Temperature Source: Oral Respirations Respiratory Effort: Non-Labored, Shortness of breath Respiratory Pattern: Normal Cardiovascular Pulse Rhythm: Irregular Heart: No rubs, clicks or gallop Lung Sounds Breath Sounds: Coarse, Rhonchi Capillary Refil Capillary Refill: Rt Hand < 3 seconds Peripheral Pulse Pulse Location: Radial Pulse Strength: Weak (1+) Pulse Assessment Method: Palpation Integumentary Skin: Dry, Cool Skin Moisture: Dry Skin Turgor: Normal Skin Color: warm, dry Fingernail Color: WNL Critical Care Time Critical care time was 30 minutes which includes time at bedside, spent in discussion of patient's care with specialists and/or family members, with interpretation of laboratory and/or radiological studies and is exclusive of procedures. Problem Qualifiers Primary Impression: Altered mental status Altered mental status type: unspecified Qualified Codes: R41.82 - Altered mental status, unspecified Additional Impressions: CHF exacerbation Heart failure type: unspecified Qualified Codes: I50.9 - Heart failure, unspecified UTI (urinary tract infection) Urinary tract infection type: site unspecified Hematuria presence: without hematuria Qualified Codes: N39.0 - Urinary tract infection, site not specified EDWIGE SALVADOR DO Mar 20, 2019 00:04
[2019-03-20 00:26] LABS: BASO % 0 % (0-3); EOS % 0 % (0-3); HEMATOCRIT 42.5 % (36.0-47.0); HEMOGLOBIN 13.9 g/dL (12.0-15.5); LYMPH # 0.9 x10^3/uL (1.0-4.8); LYMPH % 19 % (24-48); MEAN CORPUSCULAR HEMOGLOBIN 30 pg (25-35); MEAN CORPUSCULAR HGB CONC 33 g/dL (31-37); MEAN CORPUSCULAR VOLUME 93 fL (79-100); MONO # 0.3 x10^3/uL (0.0-1.1); MONO % 7 % (0-9); NEUT # 3.5 x10^3/uL (1.8-7.7); NEUT % 74 % (31-73); PLATELET COUNT 174 x10^3/uL (140-400); RED BLOOD COUNT 4.58 x10^6/uL (3.50-5.40); RED CELL DISTRIBUTION WIDTH 16.1 % (11.5-14.5); WHITE BLOOD COUNT 4.8 x10^3/uL (4.0-11.0)
[2019-03-20 00:30] LABS: CALCIUM 7.7 mg/dL (8.5-10.1); CREATININE 1.9 mg/dL (0.6-1.0); GFR 32.3; POTASSIUM 3.5 mmol/L (3.5-5.1)
[2019-03-20 00:32] LABS: BILIRUBIN,URINE NEGATIVE (NEG); CLARITY,URINE CLEAR; COLOR,URINE YELLOW; NITRITE,URINE NEGATIVE (NEG); PH,URINE 5.5; PROTEIN,URINE NEGATIVE (NEG-TRACE)
[2019-03-20 00:35] LABS: ALBUMIN 3.3 g/dL (3.4-5.0); ALBUMIN/GLOBULIN RATIO 0.7 (1.0-1.7); MAGNESIUM 2.4 mg/dL (1.8-2.4); TOTAL BILIRUBIN 0.9 mg/dL (0.2-1.0); TOTAL PROTEIN 7.9 g/dL (6.4-8.2)
[2019-03-20 00:38] LABS: PROTHROMBIN TIME PATIENT 50.4 SEC (11.7-14.0)
--- NOTE | 2019-03-20 01:06 | RAD ---
CT HEAD WO CONTRAST Date: 03/19/2019 11:58 PM Clinical Indication: Comparison: None. Technique: 5 mm axial tomographic images were obtained of the head without contrast. These were viewed on brain and bone windows. One or more of the following dose reduction techniques were utilized: Automated exposure control (AEC), Adjustment of mA and/or kV according to patient size, Use of iterative reconstruction technique such as ASiR, CT scan done according to ALARA and image gently/image wisely Findings: Mild generalized cerebral and cerebellar volume loss. Mild nonspecific periventricular hypoattenuation, most commonly seen with chronic small vessel ischemic disease. Calcified atherosclerosis of the bilateral cavernous and paraclinoid internal carotid arteries. Chronic left basal ganglia lacunar infarct. Small area of right cerebellar hypoattenuation. No intra- or extra-axial mass or fluid collection. No acute hemorrhage. The ventricles are normal in size, shape, and morphology. The cortes-white matter junction is normal. The subarachnoid cisterns are patent. The visualized paranasal sinuses are normal. The visualized portions of the orbits and globes are normal. The mastoid air cells are clear. The research chemist topogram shows no lytic lesion or fracture. Impression: Small region of hypoattenuation in the right cerebellum, which likely represents chronic or potentially subacute ischemia. Correlate with patient's history, and if clinically warranted MRI could be obtained. Mild cerebral volume loss. Mild chronic small vessel ischemic disease. Electronically signed by: Luis Alberto Linares MD (03/20/2019 1:03 AM) [facility]
[2019-03-20 01:27] LABS: BACTERIA,URINE MANY /HPF (0-FEW); HYALINE CASTS, URINE MODERATE /HPF; SQUAMOUS EPITHELIAL CELL,UR FEW /LPF
[2019-03-20 01:27] LABS: FREE T4 0.47 ng/dL (0.76-1.46); THYROID STIM HORMONE (TSH) 0.532 uIU/mL (0.358-3.74)
[2019-03-20] MEDS ORDERED: ONDANSETRON PF 4 MG/2 ML VIAL. IV PRN (01:45)
[2019-03-20] MEDS ORDERED: BUMETANIDE 1 MG/4 ML VIAL. IV ONE (02:00)
[2019-03-20] MEDS ORDERED: cefTRIAXone IV Push 1 GM VIAL. IVP ONE (02:45)
[2019-03-20] MEDS ORDERED: IV NORMAL SALINE 500ML BAG 500 ML IV ONE (03:00)
[2019-03-20] MEDS ORDERED: VANCOMYCIN 1.25 GM in IV NORMAL SALINE 500ML BAG 500 ML IV ONE (03:00)
[2019-03-20] MEDS ORDERED: IV NORMAL SALINE 1000ML BAG 1,000 ML IV ONE (03:00)
[2019-03-20] MEDS ORDERED: AZTREONAM IV Push 2 GM VIAL. IVP ONE (03:15)
[2019-03-20 03:33] VITALS: BP 97/66
--- NOTE | 2019-03-20 03:47 | RAD ---
PORTABLE CHEST 1V INDICATION: Dyspnea. COMPARISON STUDY: 02/13/2019. FINDINGS: Lungs: Normal lung volume. Bilateral perihilar and basilar heterogeneous opacities. Indistinct pulmonary vasculature. Pleura: Small right pleural effusion. Heart and Mediastinum: Cardiomegaly. Tortuous thoracic aorta. IMPRESSION: 1. Bilateral perihilar and basilar opacities, likely edema. 2. Small right pleural effusion. Electronically signed by: Luis Alberto Linares MD (03/20/2019 3:44 AM) [facility]
[2019-03-20] MEDS ORDERED: C.DIFF MED SCREEN BY RX. MC ONE (04:00)
[2019-03-20 07:00] VITALS: BP 102/65
--- NOTE | 2019-03-20 08:37 | NUR ---
Pharmacy Medication Review S: Consulted for medication review re: C.diff Risk Assessment score of 4 O: JANNET BOBBY is a 63 year old with: Previous C.diff infection: No Previous hospitalization: Within 30 days Recent antibiotics: Within 30 days Use of gastric acid suppressor: No Transfer from [place]/[facility]: No Current antibiotic regimen: NONE Current acid suppression regimen: NONE A: Patient has been identified as having risk factors for C.diff infection as noted above. P: ABX DE-ESCALATION RECOMMENDED: NO ABX PROBIOTIC ORDERED: PT NOT ON ABX AT THIS TIME PPI CHANGED TO [id number]: PT NOT ON PPI HOME MED [facility], 03/20/19 [id number]
[2019-03-20] MEDS ORDERED: FLU VAX QS 2019-20 (36MOS+)/PF 0.5 ML SYRINGE. VAX IM ONE (09:00)
[2019-03-20 11:00] VITALS: BP 99/71
--- NOTE | 2019-03-20 11:19 | PDOC1 ---
History and Physical Date of Admission: Date of Admission DATE: 03/20/19 TIME: 11:15 Chief Complaint: Problems: (1) Fever (2) Acute sinusitis (3) Acute bronchitis (4) Smoking addiction (5) Urinary tract infection (6) Diarrhea (7) Tachycardia (8) Hyperthyroidism (9) Thyroid nodule (10) Septic shock (11) Acute renal insufficiency (12) UTI (urinary tract infection) (13) Altered mental status (14) Elevated INR (15) CHF exacerbation Chief Complain: Mental status change History of Present Illness: HPI: HPI Patient is a 63-year-old female with a past medical history of heart failure, atrial flutter, and status post thyroidectomy 2 weeks ago as presenting to the emergency department with altered mental status. Patient's daughter at bedside states that she has periods of confusion where she doesn't make sense when she speaks and she does things that are out of character and the daughter states that these episodes began after the patient had thyroid surgery. The patient is alert and oriented 4 at this time and does not recall not remembering things like the daughter states. The daughter states that she is overall altered since thyroid surgery. The patient denies trauma, fevers, chills, abdominal pain, nausea, vomiting, burning with urination, and increased frequency. The patient states that she has mild shortness of breath and cough at this time. Past Medical/Surgical History: PMH/PSH: Past Medical History: Hypertension, Hypothyroid, Other Additional Past Medical Histor: chronic left knee pain,bld transfusion Past Surgical History: Other Additional Past Surgical Histo: D&C, thyroidectomy Smoking: Cigarettes Alcohol Use: None Drug Use: None Allergies: Allergies: Coded Allergies: Penicillins (Verified Allergy, Severe, anaphylaxis, 03/03/19) Family History: Family History: Hypertension Social History: Social Hisoty: She lives at a facility does not drink smoke or take drugs Current Medications: Current Medications Current Medications Bumetanide (Bumex) 0.5 mg 1X ONCE IV Last administered on 03/20/19at 01:56; Start 03/20/19 at 02:00; Stop 03/20/19 at 02:01; Status DC Ondansetron HCl (Zofran) 4 mg PRN Q8HRS PRN IV NAUSEA/VOMITING; Start 03/20/19 at 01:45; Stop 03/21/19 at 01:44 Sodium Chloride 1,000 ml @ 1,000 mls/hr 1X ONCE IV Last administered on 03/20/19at 03:00; Start 03/20/19 at 03:00; Stop 03/20/19 at 03:59; Status DC Sodium Chloride 500 ml @ 500 mls/hr 1X ONCE IV Last administered on 03/20/19at 03:01; Start 03/20/19 at 03:00; Stop 03/20/19 at 03:59; Status DC Ceftriaxone Sodium (Rocephin) 1 gm 1X ONCE IVP ; Start 03/20/19 at 02:45; Stop 03/20/19 at 02:51; Status DC Vancomycin HCl 1.25 gm/Sodium Chloride 500 ml @ 250 mls/hr 1X ONCE IV Last administered on 03/20/19at 03:04; Start 03/20/19 at 03:00; Stop 03/20/19 at 04:59; Status DC Aztreonam (Azactam) 2 gm 1X ONCE IVP Last administered on 03/20/19at 03:03; Start 03/20/19 at 03:15; Stop 03/20/19 at 03:16; Status DC Pharmacy Consult (C.diff Med Screen By Rx) 1 each 1X ONCE [facility] ; Start 03/20/19 at 04:00; Stop 03/20/19 at 04:05; Status DC Influenza Virus Vaccine Quadrival (Afluria Quad 2019-20 (3yr Up) Syringe) 0.5 ml ONCE ONCE VAX IM ; Start 03/20/19 at 09:00; Stop 03/20/19 at 09:01; Status UNV Active Scripts Active Synthroid (Levothyroxine Sodium) 25 Mcg Tablet 25 Mcg PO DAILY06 Hydrocodone-Apap 5-325 (Hydrocodone Bit/Acetaminophen) 1 Tab Tablet 1 Tab PO PRN Q4HRS PRN Proair Hfa Inhaler (Albuterol Sulfate) 8.5 Gm Hfa.aer.ad 2 Puff IH PRN Q4-6HRS PRN 21 Days Lasix (Furosemide) 40 Mg Tablet 1 Tab PO DAILY 30 Days Metoprolol Tartrate 25 Mg Tablet 25 Mg PO BID Eliquis (Apixaban) 5 Mg Tablet 5 Mg PO BID Hold 2-3 days prior to thyoroid sx [Nicotine 21MG] 1 PATCH Patch 1 Patch TD PRN DAILY PRN MDD 1 Ventolin Hfa Inhaler (Albuterol Sulfate) 18 Gm Hfa.aer.ad 2 Puff INH Q4HRS Tessalon Perle (Benzonatate) 100 Mg Capsule 1 Cap PO TID Flonase Allergy Relief (Fluticasone Propionate) 9.9 Ml [place].susp 2 Sprays NS DAILY Reported Voltaren (Diclofenac Sodium) 100 Gm Gel..gram. 1 Gm TP QID Gabapentin 600 Mg Tablet 600 Mg PO DAILY Cyclobenzaprine Hcl 10 Mg Tablet 1 Tab PO PRN TID PRN ROS: Review of Systems Unable to obtain patient is confused Physical Exam: Vital Signs: Vital Signs Date Time Temp Pulse Resp B/P (MAP) Pulse Ox O2 Delivery O2 Flow Rate FiO2 03/20/19 08:00 Nasal Cannula 2.0 03/20/19 07:00 112 18 102/65 (77) 100 03/20/19 03:33 97.1 97.1 Physcial Exam: GEN: No apparent distress. Confused HEENT: Normal cephalic, atraumatic, external auditory canals are patent EYES: Extraocular muscles are intact, pupil are equally round and reactive to light and accommodation MUSCULOSKELETAL: Well developed , well nourished, good range of motion ENDOCRINE: Ny thyromegaly was palpated LYMPHATICS: No cervical chain or axillary nodes were noted HEMATOPOIETIC: No bruising NECK: Supple, no JVD, no thyromegaly was noted LUNGS: Clear to auscultation in all lung klein without rhonchi or wheezing HEART: RRR, S!, S2 present. Peripheral pulses intact, no obvious murmurs noted ABDOMEN: Soft, nontender. Positive bowel sounds, no organomegaly, normal bowel sounds EXTREMITIES: Without clubbing, cyanosis, or edema. Pedal pulses intact. Negative Homans sign NEUROLOGIC: Pleasantly confused resting with no apparent distress PSYCHIATRIC: Pleasantly confused SKIN: No ulcerations or rashes, good skin turgor, no jaundice VASCULAR: Good capillary refill, neurovascular bundle appears to be intact Labs: Labs: Laboratory Tests Test 03/19/19 23:01 03/19/19 23:45 03/20/19 00:03 03/20/19 00:17 Glucose (Fingerstick) 96 mg/dL (70-99) Lactic Acid Level 4.8 mmol/L (0.4-2.0) White Blood Count 4.8 x10^3/uL (4.0-11.0) Red Blood Count 4.58 x10^6/uL (3.50-5.40) Hemoglobin 13.9 g/dL (12.0-15.5) Hematocrit 42.5 % (36.0-47.0) Mean Corpuscular Volume 93 fL (79-100) Mean Corpuscular Hemoglobin 30 pg (25-35) Mean Corpuscular Hemoglobin Concent 33 g/dL (31-37) Red Cell Distribution Width 16.1 % (11.5-14.5) Platelet Count 174 x10^3/uL (140-400) Neutrophils (%) (Auto) 74 % (31-73) Lymphocytes (%) (Auto) 19 % (24-48) Monocytes (%) (Auto) 7 % (0-9) Eosinophils (%) (Auto) 0 % (0-3) Basophils (%) (Auto) 0 % (0-3) Neutrophils # (Auto) 3.5 x10^3/uL (1.8-7.7) Lymphocytes # (Auto) 0.9 x10^3/uL (1.0-4.8) Monocytes # (Auto) 0.3 x10^3/uL (0.0-1.1) Eosinophils # (Auto) 0.0 x10^3/uL (0.0-0.7) Basophils # (Auto) 0.0 x10^3/uL (0.0-0.2) Prothrombin Time 50.4 SEC (11.7-14.0) Prothromb Time International Ratio 5.5 (0.8-1.1) Activated Partial Thromboplast Time 64 SEC (24-38) Sodium Level 136 mmol/L (136-145) Potassium Level 3.5 mmol/L (3.5-5.1) Chloride Level 99 mmol/L (98-107) Carbon Dioxide Level 22 mmol/L (21-32) Anion Gap 15 (6-14) Blood Urea Nitrogen 85 mg/dL (7-20) Creatinine 1.9 mg/dL (0.6-1.0) Estimated GFR (Cockcroft-Gault) 32.3 BUN/Creatinine Ratio 45 (6-20) Glucose Level 109 mg/dL (70-99) Calcium Level 7.7 mg/dL (8.5-10.1) Magnesium Level 2.4 mg/dL (1.8-2.4) Total Bilirubin 0.9 mg/dL (0.2-1.0) Aspartate Amino Transf (AST/SGOT) 46 U/L (15-37) Alanine Aminotransferase (ALT/SGPT) 31 U/L (14-59) Alkaline Phosphatase 102 U/L (46-116) JX-Lck-W-Type Natriuretic Peptide > 23396 pg/mL (0-124) Total Protein 7.9 g/dL (6.4-8.2) Albumin 3.3 g/dL (3.4-5.0) Albumin/Globulin Ratio 0.7 (1.0-1.7) Thyroid Stimulating Hormone (TSH) 0.532 uIU/mL (0.358-3.74) Free Thyroxine 0.47 ng/dL (0.76-1.46) Free Triiodothyronine (T3) pg/mL < 0.50 pg/mL (2.18-3.98) Urine Collection Type U cath Urine Color Yellow Urine Clarity Clear Urine pH 5.5 Urine Specific [place] 1.015 Urine Protein Negative mg/dL (NEG-TRACE) Urine Glucose (UA) Negative mg/dL (NEG) Urine Ketones (Stick) Negative mg/dL (NEG) Urine Blood Small (NEG) Urine Nitrite Negative (NEG) Urine Bilirubin Negative (NEG) Urine Urobilinogen Dipstick 1.0 mg/dL (0.2 mg/dL) Urine Leukocyte Esterase Moderate (NEG) Urine RBC 3-5 /HPF (0-2) Urine WBC 11-20 /HPF (0-4) Urine Squamous Epithelial Cells Few /LPF Urine Bacteria Many /HPF (0-FEW) Urine Hyaline Casts Moderate /HPF Test 03/20/19 02:50 03/20/19 05:30 03/20/19 07:53 03/20/19 10:00 Ionized Calcium 1.01 mmol/L (1.13-1.32) Ammonia < 11 mcmol/L (11-34) Troponin I Quantitative 0.055 ng/mL (0.000-0.055) 0.035 ng/mL (0.000-0.055) Lactic Acid Level 4.4 mmol/L (0.4-2.0) 4.1 mmol/L (0.4-2.0) Laboratory Tests Test 03/19/19 23:01 03/19/19 23:45 03/20/19 00:03 03/20/19 00:17 Glucose (Fingerstick) 96 mg/dL (70-99) Lactic Acid Level 4.8 mmol/L (0.4-2.0) White Blood Count 4.8 x10^3/uL (4.0-11.0) Red Blood Count 4.58 x10^6/uL (3.50-5.40) Hemoglobin 13.9 g/dL (12.0-15.5) Hematocrit 42.5 % (36.0-47.0) Mean Corpuscular Volume 93 fL (79-100) Mean Corpuscular Hemoglobin 30 pg (25-35) Mean Corpuscular Hemoglobin Concent 33 g/dL (31-37) Red Cell Distribution Width 16.1 % (11.5-14.5) Platelet Count 174 x10^3/uL (140-400) Neutrophils (%) (Auto) 74 % (31-73) Lymphocytes (%) (Auto) 19 % (24-48) Monocytes (%) (Auto) 7 % (0-9) Eosinophils (%) (Auto) 0 % (0-3) Basophils (%) (Auto) 0 % (0-3) Neutrophils # (Auto) 3.5 x10^3/uL (1.8-7.7) Lymphocytes # (Auto) 0.9 x10^3/uL (1.0-4.8) Monocytes # (Auto) 0.3 x10^3/uL (0.0-1.1) Eosinophils # (Auto) 0.0 x10^3/uL (0.0-0.7) Basophils # (Auto) 0.0 x10^3/uL (0.0-0.2) Prothrombin Time 50.4 SEC (11.7-14.0) Prothromb Time International Ratio 5.5 (0.8-1.1) Activated Partial Thromboplast Time 64 SEC (24-38) Sodium Level 136 mmol/L (136-145) Potassium Level 3.5 mmol/L (3.5-5.1) Chloride Level 99 mmol/L (98-107) Carbon Dioxide Level 22 mmol/L (21-32) Anion Gap 15 (6-14) Blood Urea Nitrogen 85 mg/dL (7-20) Creatinine 1.9 mg/dL (0.6-1.0) Estimated GFR (Cockcroft-Gault) 32.3 BUN/Creatinine Ratio 45 (6-20) Glucose Level 109 mg/dL (70-99) Calcium Level 7.7 mg/dL (8.5-10.1) Magnesium Level 2.4 mg/dL (1.8-2.4) Total Bilirubin 0.9 mg/dL (0.2-1.0) Aspartate Amino Transf (AST/SGOT) 46 U/L (15-37) Alanine Aminotransferase (ALT/SGPT) 31 U/L (14-59) Alkaline Phosphatase 102 U/L (46-116) OC-Faa-Q-Type Natriuretic Peptide > 62676 pg/mL (0-124) Total Protein 7.9 g/dL (6.4-8.2) Albumin 3.3 g/dL (3.4-5.0) Albumin/Globulin Ratio 0.7 (1.0-1.7) Thyroid Stimulating Hormone (TSH) 0.532 uIU/mL (0.358-3.74) Free Thyroxine 0.47 ng/dL (0.76-1.46) Free Triiodothyronine (T3) pg/mL < 0.50 pg/mL (2.18-3.98) Urine Collection Type U cath Urine Color Yellow Urine Clarity Clear Urine pH 5.5 Urine Specific [place] 1.015 Urine Protein Negative mg/dL (NEG-TRACE) Urine Glucose (UA) Negative mg/dL (NEG) Urine Ketones (Stick) Negative mg/dL (NEG) Urine Blood Small (NEG) Urine Nitrite Negative (NEG) Urine Bilirubin Negative (NEG) Urine Urobilinogen Dipstick 1.0 mg/dL (0.2 mg/dL) Urine Leukocyte Esterase Moderate (NEG) Urine RBC 3-5 /HPF (0-2) Urine WBC 11-20 /HPF (0-4) Urine Squamous Epithelial Cells Few /LPF Urine Bacteria Many /HPF (0-FEW) Urine Hyaline Casts Moderate /HPF Test 03/20/19 02:50 03/20/19 05:30 03/20/19 07:53 03/20/19 10:00 Ionized Calcium 1.01 mmol/L (1.13-1.32) Ammonia < 11 mcmol/L (11-34) Troponin I Quantitative 0.055 ng/mL (0.000-0.055) 0.035 ng/mL (0.000-0.055) Lactic Acid Level 4.4 mmol/L (0.4-2.0) 4.1 mmol/L (0.4-2.0) Images: Images PORTABLE CHEST 1V INDICATION: Dyspnea. COMPARISON STUDY: 02/13/2019. FINDINGS: Lungs: Normal lung volume. Bilateral perihilar and basilar heterogeneous opacities. Indistinct pulmonary vasculature. Pleura: Small right pleural effusion. Heart and Mediastinum: Cardiomegaly. Tortuous thoracic aorta. IMPRESSION: 1. Bilateral perihilar and basilar opacities, likely edema. 2. Small right pleural effusion. Assessment/Plan Assessment/Plan Sepsis secondary to urinary tract infection Plan I ordered IV Levaquin [address] Drake because her INR is high although she is on Eliquis Home meds IV fluids PT OT DVT prophylaxis Full code Prognosis guarded Will trend labs Discussed with MARCO TRISTAN III DO Mar 20, 2019 11:19
--- NOTE | 2019-03-20 13:33 | EKG ---
[facility] [address] [place] [address] Test Date: 2019-03-19 Test Time: 23:07:00 Pat Name: JANNET BOBBY Department: Room: Gender: F Glove Presser: : 1955 Requested By: EDWIGE SALVADOR Order Number: [id number] Reading MD: Measurements Intervals [place] Rate: 95 P: VA: QRS: -48 QRSD: 90 T: 122 QT: 370 QTc: 468 Interpretive Statements ATRIAL FLUTTER ABNORMAL LEFT AXIS DEVIATION QRS(T) CONTOUR ABNORMALITY CONSISTENT WITH INFERIOR INFARCT PROBABLY OLD T ABNORMALITY IN LATERAL LEADS ABNORMAL ECG No previous ECG available for comparison
[2019-03-20] MEDS ORDERED: ALBUTEROL SULFATE 2.5 MG/3 ML NEBU. NEB PRN (13:45)
[2019-03-20] MEDS ORDERED: CYCLOBENZAPRINE 10 MG TABLET. PO PRN (13:45)
--- NOTE | 2019-03-20 14:09 | PDOC ---
CARDIOLOGY PROGRESS NOTE SUBJECTIVE: 63-year-old woman who appears to be frail and emaciated status post recent thyroidectomy comes into the hospital in the setting of continued confusion. She has been diagnosed with a UTI. Cardiology has been asked to evaluate her for her heart failure. Today she is alert and oriented to person and place but not time. Denies any c urrent chest pain. She's having some mild dyspnea. OBJECTIVE: Vital Signs/I&O: Vital Signs Date Time Temp Pulse Resp B/P (MAP) Pulse Ox O2 Delivery O2 Flow Rate FiO2 03/20/19 11:00 96.8 102 18 99/71 (80) 100 Nasal Cannula 2.0 96.8 I & O 03/19/19 03/19/19 03/20/19 15:00 23:00 07:00 Intake Total 0 ml Balance 0 ml Objective: She is frail and emaciated She has elevated neck veins suggestive of significant volume overload Extremities are cool to touch with diminished pedal pulses and 1+ radial pulses Heart tones are irregular and distant with soft systolic murmur Soft abdomen No focal neurologic deficits. CURRENT MEDICATIONS: Current Medications Medications (Trade) Dose Ordered Sig/Karen Route PRN Reason Start Time Stop Time Status Last Admin Dose Admin Bumetanide (Bumex) 0.5 mg 1X ONCE IV 03/20/19 02:00 03/20/19 02:01 DC 03/20/19 01:56 Sodium Chloride 1,000 ml @ 1,000 mls/hr 1X ONCE IV 03/20/19 03:00 03/20/19 03:59 DC 03/20/19 03:00 Sodium Chloride 500 ml @ 500 mls/hr 1X ONCE IV 03/20/19 03:00 03/20/19 03:59 DC 03/20/19 03:01 Vancomycin HCl 1.25 gm/Sodium Chloride 500 ml @ 250 mls/hr 1X ONCE IV 03/20/19 03:00 03/20/19 04:59 DC 03/20/19 03:04 Aztreonam (Azactam) 2 gm 1X ONCE IVP 03/20/19 03:15 03/20/19 03:16 DC 03/20/19 03:03 Levofloxacin/ Dextrose 50 ml @ 50 mls/hr Q24H IV 03/20/19 12:00 03/20/19 12:50 DIAGNOSTIC TESTING: Labs reviewed and notable for elevated lactate of 4.8, creatinine 1.9, INR 5.5, UTI positive for bacteria and white blood cells. Labs: Laboratory Tests 03/20/19 00:03 Laboratory Tests Test 03/19/19 23:01 03/19/19 23:45 03/20/19 00:03 03/20/19 00:17 Glucose (Fingerstick) 96 mg/dL (70-99) Lactic Acid Level 4.8 mmol/L (0.4-2.0) *H White Blood Count 4.8 x10^3/uL (4.0-11.0) Red Blood Count 4.58 x10^6/uL (3.50-5.40) Hemoglobin 13.9 g/dL (12.0-15.5) Hematocrit 42.5 % (36.0-47.0) Mean Corpuscular Volume 93 fL (79-100) Mean Corpuscular Hemoglobin 30 pg (25-35) Mean Corpuscular Hemoglobin Concent 33 g/dL (31-37) Red Cell Distribution Width 16.1 % (11.5-14.5) H Platelet Count 174 x10^3/uL (140-400) Neutrophils (%) (Auto) 74 % (31-73) H Lymphocytes (%) (Auto) 19 % (24-48) L Monocytes (%) (Auto) 7 % (0-9) Eosinophils (%) (Auto) 0 % (0-3) Basophils (%) (Auto) 0 % (0-3) Neutrophils # (Auto) 3.5 x10^3/uL (1.8-7.7) Lymphocytes # (Auto) 0.9 x10^3/uL (1.0-4.8) L Monocytes # (Auto) 0.3 x10^3/uL (0.0-1.1) Eosinophils # (Auto) 0.0 x10^3/uL (0.0-0.7) Basophils # (Auto) 0.0 x10^3/uL (0.0-0.2) Prothrombin Time 50.4 SEC (11.7-14.0) H Prothromb Time International Ratio 5.5 (0.8-1.1) *H Activated Partial Thromboplast Time 64 SEC (24-38) H Sodium Level 136 mmol/L (136-145) Potassium Level 3.5 mmol/L (3.5-5.1) Chloride Level 99 mmol/L (98-107) Carbon Dioxide Level 22 mmol/L (21-32) Anion Gap 15 (6-14) H Blood Urea Nitrogen 85 mg/dL (7-20) H Creatinine 1.9 mg/dL (0.6-1.0) H Estimated GFR (Cockcroft-Gault) 32.3 BUN/Creatinine Ratio 45 (6-20) H Glucose Level 109 mg/dL (70-99) H Calcium Level 7.7 mg/dL (8.5-10.1) L Total Bilirubin 0.9 mg/dL (0.2-1.0) Aspartate Amino Transf (AST/SGOT) 46 U/L (15-37) H Alkaline Phosphatase 102 U/L (46-116) Total Protein 7.9 g/dL (6.4-8.2) Albumin 3.3 g/dL (3.4-5.0) L Albumin/Globulin Ratio 0.7 (1.0-1.7) L Thyroid Stimulating Hormone (TSH) 0.532 uIU/mL (0.358-3.74) Free Thyroxine 0.47 ng/dL (0.76-1.46) L Free Triiodothyronine (T3) pg/mL < 0.50 pg/mL (2.18-3.98) L Urine Collection Type U cath Urine Color Yellow Urine Clarity Clear Urine pH 5.5 Urine Specific [place] 1.015 Urine Protein Negative mg/dL (NEG-TRACE) Urine Glucose (UA) Negative mg/dL (NEG) Urine Ketones (Stick) Negative mg/dL (NEG) Urine Blood Small (NEG) Urine Nitrite Negative (NEG) Urine Bilirubin Negative (NEG) Urine Urobilinogen Dipstick 1.0 mg/dL (0.2 mg/dL) Urine Leukocyte Esterase Moderate (NEG) Urine RBC 3-5 /HPF (0-2) Urine WBC 11-20 /HPF (0-4) Urine Squamous Epithelial Cells Few /LPF Urine Bacteria Many /HPF (0-FEW) Urine Hyaline Casts Moderate /HPF Test 03/20/19 02:50 03/20/19 05:30 03/20/19 10:00 03/20/19 13:25 Ionized Calcium 1.01 mmol/L (1.13-1.32) L Ammonia < 11 mcmol/L (11-34) L Lactic Acid Level 4.4 mmol/L (0.4-2.0) *H 4.1 mmol/L (0.4-2.0) *H 2.8 mmol/L (0.4-2.0) H ASSESSMENT: 1. Atrial fibrillation with controlled response 2. Moderate AI 3. NEGRITO likely due to UTI 4. Sepsis due to UTI 5. Recent thyroidectomy with hypocalcemia 6. Moderate to severe p.HTN PLAN: 1. She appears to be suffering from mixed diastolic and systolic HF in the setting of NEGRITO+UTI -Hold further IVF -Diuresis as tolerated with close BP monitoring -Serial lactate and iCa per PCP. -Supportive care with tx of UTI and renal failure -Ok to hold eliquis for now and reassess after her UTI etc improves given that her INR is elevated likely due to malnutrition Supportive care. FREDA LANDON MD Mar 20, 2019 14:09
[2019-03-20 15:00] VITALS: BP 108/71
[2019-03-20] MEDS: BENZONATATE 100 MG CAPSULE. PO SCH ×2 (15:00→21:27)
[2019-03-20] MEDS: GABAPENTIN 300 MG CAPSULE. PO SCH (15:00)
[2019-03-20] MEDS: LEVOTHYROXINE 25 MCG TABLET. PO SCH (15:00)
[2019-03-20] MEDS: METOPROLOL TART IMMED RELEASE 25 MG TABLET. PO SCH ×2 (15:00→21:27)
[2019-03-20] MEDS: DICLOFENAC SODIUM 1% TOPICAL GEL 100GM TUBE. TP SCH ×3 (15:01→21:29)
[2019-03-20] MEDS: FLUTICASONE 50MCG/NASAL SPRAY 16GM BOTTLE. NS SCH (15:01)
[2019-03-20] MEDS: FUROSEMIDE 40 MG TABLET. PO SCH (15:01)
[2019-03-20] MEDS ORDERED: PHYTONADIONE 10 MG/ML ORAL SOLUTION. PO ONE (15:15)
[2019-03-20] MEDS: IPRATRPIUM/ALBUTEROL 0.5/2.5MG 3 ML NEBU. NEB SCH ×2 (15:48→20:00)
[2019-03-20] MEDS ORDERED: NON FORMULARY ITEM (Albuterol Sulfate (Ventolin Hfa Inhaler) 2 PUFF) INH SCH (16:00)
[2019-03-20 19:50] VITALS: BP 119/68
[2019-03-20] MEDS: LACTOBACILLUS RHAMNOSUS GG 1 CAPSULE. PO SCH (21:27)
[2019-03-20 23:00] VITALS: BP 98/64
[2019-03-21 03:00] VITALS: BP 101/59
[2019-03-21 04:45] LABS: BASO % 0 % (0-3); EOS % 0 % (0-3); HEMATOCRIT 36.4 % (36.0-47.0); HEMOGLOBIN 11.9 g/dL (12.0-15.5); LYMPH # 1.4 x10^3/uL (1.0-4.8); LYMPH % 26 % (24-48); MEAN CORPUSCULAR HEMOGLOBIN 31 pg (25-35); MEAN CORPUSCULAR HGB CONC 33 g/dL (31-37); MEAN CORPUSCULAR VOLUME 95 fL (79-100); MONO # 0.7 x10^3/uL (0.0-1.1); MONO % 13 % (0-9); NEUT # 3.3 x10^3/uL (1.8-7.7); NEUT % 61 % (31-73); PLATELET COUNT 128 x10^3/uL (140-400); RED BLOOD COUNT 3.84 x10^6/uL (3.50-5.40); RED CELL DISTRIBUTION WIDTH 16.8 % (11.5-14.5); WHITE BLOOD COUNT 5.4 x10^3/uL (4.0-11.0)
[2019-03-21 04:56] LABS: PROTHROMBIN TIME PATIENT 23.6 SEC (11.7-14.0)
[2019-03-21] MEDS: LEVOTHYROXINE 25 MCG TABLET. PO SCH (05:25)
[2019-03-21] MEDS: IPRATRPIUM/ALBUTEROL 0.5/2.5MG 3 ML NEBU. NEB SCH ×4 (06:38→18:36)
[2019-03-21 07:00] VITALS: BP 87/56
[2019-03-21] MEDS: BENZONATATE 100 MG CAPSULE. PO SCH ×3 (08:53→20:46)
[2019-03-21] MEDS: FLUTICASONE 50MCG/NASAL SPRAY 16GM BOTTLE. NS SCH (08:53)
[2019-03-21] MEDS: DICLOFENAC SODIUM 1% TOPICAL GEL 100GM TUBE. TP SCH ×4 (08:53→20:47)
[2019-03-21] MEDS: GABAPENTIN 300 MG CAPSULE. PO SCH (08:53)
[2019-03-21] MEDS: LACTOBACILLUS RHAMNOSUS GG 1 CAPSULE. PO SCH ×2 (08:53→20:46)
[2019-03-21] MEDS: METOPROLOL TART IMMED RELEASE 25 MG TABLET. PO SCH ×2 (08:56→20:46)
[2019-03-21] MEDS: FUROSEMIDE 40 MG TABLET. PO SCH (08:59)
--- NOTE | 2019-03-21 09:40 | PDOC2 ---
CONSULT Date of Consult Date of Consult DATE: 03/21/19 TIME: 09:27 Reason for consultation: Coagulopathy Consult: Hematology oncology, Dr. Felix Mars History of present illness: She is a 63-year-old female who is admitted with confusion and shortness of air, being treated for heart failure and UTI, symptoms have been acutely noted over the last couple weeks post thyroidectomy, she also has associated weight loss worsened due to thyroidectomy. We are consulted due to coagulopathy. Both the PT and PTT were prolonged and she has been on Eliquis for A. fib. The INR, acutely moderately elevated improved from 5.5 to 2.1 after 1 mg of oral vitamin K, suspect it is worsened due to malnutrition and potentially eliquis slightly. Past medical history: atrial fibrillation Aortic insufficiency Acute kidney injury UTI Hypocalcemia Pulmonary hypertension Tobacco abuse Hypertension History of blood transfusion Stroke with right upper extremity weakness Past surgical history: Thyroidectomy 2 weeks ago D&C Allergies: Penicillin Medications: See attached list Social history: Positive tobacco, no alcohol Family history: Htn Review of systems: denies confusion (may be?), denies chest pain or trouble breathing, has some numbness and tingling in her fingers, tells me her right upper extremity has been weak after her prior stroke, and also has had weight loss with a thyroidectomy, voice is weak, denies other current 10 point review of systems. Physical exam: Vitals reviewed Gen.: thin, AA female, in no acute distress, eating breakfast HEENT: mucous membranes moist, head normocephalic atraumatic Neck: Supple, no lymphadenopathy Lymph nodes: No palpable lymphadenopathy neck or axilla Lungs: Breathing comfortably on NCO2 w/o respiratory distress Heart: Regular rate and irreg rhythm Abdomen: Soft, nontender, nondistended Extremities: No cyanosis, has BLE edema Skin: No obvious rashes or skin breakdown Neuro: Alert and oriented Psych: pleasant mood and quiet affect Lab reviewed: White count 5.4, hemoglobin 11.9, platelets 128, were normal on admit MCV of 95 INR of 5.5 down to 2.1 PTT of 64 on admit Fibrinogen 268 Lactate 4.1 down to 2.8 ProBNP greater than 35,000 AST of 46 T bili 0.9 Albumin 3.3 TSH 0.5 Free T4 decreased Ammonia less than 11 Urinalysis with positive white blood cells and blood and leuk esterase and bacteria Rads reviewed: Head CT with chronic or subacute ischemia and right cerebellum Chest x-ray with bilateral perihilar, basilar opacities, and small right effusion Case discussed with: pt, records reviewed in [facility] and [facility] as available, including labs and radiology, please see note for summary details Assessment and Plan: She is a 63-year-old female admitted with heart failure and confusion being treated for UTI as well with malnutrition post thyroidectomy and noted coagulopathy. Prolonged INR: Improved with vitamin K, INR 2.1 today, we'll hold further vitamin K at this time PTT: We will repeat PTT and consider mixing study tomorrow if coags still prolonged Thrombocytopenia: Very slight, We'll repeat CBC in the morning and workup further as needed, fibrinogen normal Heart failure: Per cardiology UTI: On antibiotics, per primary Tobacco abuse: Is on a nicotine patch, recommend smoking cessation Post thyroidectomy: Is on thyroid replacement, per primary Malnutrion: She is eating, nutrition consult has been placed A. fib: Anticoagulation on hold at the moment with mild coagulopathy Thank you kindly for this consultation, and please don't hesitate to call with any further questions. Past Medical History Cardiovascular: HTN Pulmonary: COPD CENTRAL NERVOUS SYSTEM: CVA GI: No pertinent hx Heme/Onc: No pertinent hx Hepatobiliary: No pertinent hx Psych: Anxiety Musculoskeletal: Osteoarthritis, Other Rheumatologic: No pertinent hx Infectious disease: No pertinent hx Renal/: No pertinent hx Endocrine: Hyperthyroidism Past Surgical History Past Surgical History: Other Family History Family History: Heart Disease Social History ALCOHOL: none Drugs: None Lives: with Family Current Problem List Problem List Problems Medical Problems: (1) Acute renal insufficiency Status: Acute (2) Altered mental status Status: Acute (3) CHF exacerbation Status: Acute (4) Elevated INR Status: Acute (5) Septic shock Status: Acute (6) UTI (urinary tract infection) Status: Acute Current Medications Current Medications Current Medications Bumetanide (Bumex) 0.5 mg 1X ONCE IV Last administered on 03/20/19at 01:56; Start 03/20/19 at 02:00; Stop 03/20/19 at 02:01; Status DC Ondansetron HCl (Zofran) 4 mg PRN Q8HRS PRN IV NAUSEA/VOMITING; Start 03/20/19 at 01:45; Stop 03/21/19 at 01:44; Status DC Sodium Chloride 1,000 ml @ 1,000 mls/hr 1X ONCE IV Last administered on 03/20/19at 03:00; Start 03/20/19 at 03:00; Stop 03/20/19 at 03:59; Status DC Sodium Chloride 500 ml @ 500 mls/hr 1X ONCE IV Last administered on 03/20/19at 03:01; Start 03/20/19 at 03:00; Stop 03/20/19 at 03:59; Status DC Ceftriaxone Sodium (Rocephin) 1 gm 1X ONCE IVP ; Start 03/20/19 at 02:45; Stop 03/20/19 at 02:51; Status DC Vancomycin HCl 1.25 gm/Sodium Chloride 500 ml @ 250 mls/hr 1X ONCE IV Last administered on 03/20/19at 03:04; Start 03/20/19 at 03:00; Stop 03/20/19 at 04:59; Status DC Aztreonam (Azactam) 2 gm 1X ONCE IVP Last administered on 03/20/19at 03:03; Start 03/20/19 at 03:15; Stop 03/20/19 at 03:16; Status DC Pharmacy Consult (C.diff Med Screen By Rx) 1 each 1X ONCE [facility] ; Start 03/20/19 at 04:00; Stop 03/20/19 at 04:05; Status DC Influenza Virus Vaccine Quadrival (Afluria Quad 2019-20 (3yr Up) Syringe) 0.5 ml ONCE ONCE VAX IM ; Start 03/20/19 at 09:00; Stop 03/20/19 at 09:01; Status UNV Levofloxacin/ Dextrose 50 ml @ 50 mls/hr Q24H IV Last administered on at 12:50; Start 03/20/19 at 12:00 Benzonatate (Tessalon Perle) 100 mg TID PO Last administered on 03/21/19at 08:53; Start 03/20/19 at 14:00 Cyclobenzaprine HCl (Flexeril) 10 mg PRN TID PRN PO MUSCLE SPASMS; Start 03/20/19 at 13:45 Diclofenac Sodium (Voltaren) 1 donald QID TP Last administered on 03/21/19at 08:53; Start 03/20/19 at 14:00 Furosemide (Lasix) 40 mg DAILY PO Last administered on 03/20/19 15:01; Start 03/20/19 at 14:00 Acetaminophen/ Hydrocodone Bitart (Lortab 5/325) 1 tab PRN Q4HRS PRN PO PAIN; Start 03/20/19 at 13:45 Levothyroxine Sodium (Synthroid) 25 mcg DAILY06 PO Last administered on 03/21/19 05:25; Start 03/20/19 at 14:00 Metoprolol Tartrate (Lopressor) 25 mg BID PO Last administered on 03/21/19 08:56; Start 03/20/19 at 14:00 Non-Formulary Medication (Albuterol Sulfate (Ventolin Hfa Inhaler)) 2 puff Q4HRS INH ; Start 03/20/19 at 16:00; Status UNV Fluticasone Propionate (Flonase) 2 spray DAILY NS Last administered on 03/21/19 08:53; Start 03/20/19 at 14:00 Gabapentin (Neurontin) 600 mg DAILY PO Last administered on 03/21/19 08:53; Start 03/20/19 at 14:00 Nicotine (Nicoderm Cq 21mg) 1 patch PRN DAILY PRN TD SMOKING CESSATION; Start 03/20/19 at 14:00 Albuterol/ Ipratropium (Duoneb) 3 ml RTQID NEB Last administered on 03/21/19at 06:38; Start 03/20/19 at 16:00 Albuterol Sulfate (Ventolin Neb Soln) 2.5 mg PRN Q4HRS PRN NEB SHORTNESS OF BREATH; Start 03/20/19 at 13:45 Lactobacillus Rhamnosus (Culturelle) 1 cap BID PO Last administered on 03/21/19 08:53; Start 03/20/19 at 21:00 Phytonadione (Mephyton Oral Soln) 1 mg 1X ONCE PO Last administered on 03/20/19at 15:29; Start 03/20/19 at 15:15; Stop 03/20/19 at 15:16; Status DC Active Scripts Active Synthroid (Levothyroxine Sodium) 25 Mcg Tablet 25 Mcg PO DAILY06 Hydrocodone-Apap 5-325 (Hydrocodone Bit/Acetaminophen) 1 Tab Tablet 1 Tab PO PRN Q4HRS PRN Proair Hfa Inhaler (Albuterol Sulfate) 8.5 Gm Hfa.aer.ad 2 Puff IH PRN Q4-6HRS PRN 21 Days Lasix (Furosemide) 40 Mg Tablet 1 Tab PO DAILY 30 Days Metoprolol Tartrate 25 Mg Tablet 25 Mg PO BID Eliquis (Apixaban) 5 Mg Tablet 5 Mg PO BID Hold 2-3 days prior to thyoroid sx [Nicotine 21MG] 1 PATCH Patch 1 Patch TD PRN DAILY PRN MDD 1 Ventolin Hfa Inhaler (Albuterol Sulfate) 18 Gm Hfa.aer.ad 2 Puff INH Q4HRS Tessalon Perle (Benzonatate) 100 Mg Capsule 1 Cap PO TID Flonase Allergy Relief (Fluticasone Propionate) 9.9 Ml [place].susp 2 Sprays NS DAILY Reported Voltaren (Diclofenac Sodium) 100 Gm Gel..gram. 1 Gm TP QID Gabapentin 600 Mg Tablet 600 Mg PO DAILY Cyclobenzaprine Hcl 10 Mg Tablet 1 Tab PO PRN TID PRN Allergies Allergies: Coded Allergies: Penicillins (Verified Allergy, Severe, anaphylaxis, 03/03/19) Vitals VITALS Vital Signs Date Time Temp Pulse Resp B/P (MAP) Pulse Ox O2 Delivery O2 Flow Rate FiO2 03/21/19 08:56 96 94/67 03/21/19 07:00 97.2 18 100 Nasal Cannula 3.0 97.2 Labs Labs Laboratory Tests Test 03/19/19 23:01 03/19/19 23:45 03/20/19 00:03 03/20/19 00:17 Glucose (Fingerstick) 96 mg/dL (70-99) Lactic Acid Level 4.8 mmol/L (0.4-2.0) White Blood Count 4.8 x10^3/uL (4.0-11.0) Red Blood Count 4.58 x10^6/uL (3.50-5.40) Hemoglobin 13.9 g/dL (12.0-15.5) Hematocrit 42.5 % (36.0-47.0) Mean Corpuscular Volume 93 fL (79-100) Mean Corpuscular Hemoglobin 30 pg (25-35) Mean Corpuscular Hemoglobin Concent 33 g/dL (31-37) Red Cell Distribution Width 16.1 % (11.5-14.5) Platelet Count 174 x10^3/uL (140-400) Neutrophils (%) (Auto) 74 % (31-73) Lymphocytes (%) (Auto) 19 % (24-48) Monocytes (%) (Auto) 7 % (0-9) Eosinophils (%) (Auto) 0 % (0-3) Basophils (%) (Auto) 0 % (0-3) Neutrophils # (Auto) 3.5 x10^3/uL (1.8-7.7) Lymphocytes # (Auto) 0.9 x10^3/uL (1.0-4.8) Monocytes # (Auto) 0.3 x10^3/uL (0.0-1.1) Eosinophils # (Auto) 0.0 x10^3/uL (0.0-0.7) Basophils # (Auto) 0.0 x10^3/uL (0.0-0.2) Prothrombin Time 50.4 SEC (11.7-14.0) Prothromb Time International Ratio 5.5 (0.8-1.1) Activated Partial Thromboplast Time 64 SEC (24-38) Sodium Level 136 mmol/L (136-145) Potassium Level 3.5 mmol/L (3.5-5.1) Chloride Level 99 mmol/L (98-107) Carbon Dioxide Level 22 mmol/L (21-32) Anion Gap 15 (6-14) Blood Urea Nitrogen 85 mg/dL (7-20) Creatinine 1.9 mg/dL (0.6-1.0) Estimated GFR (Cockcroft-Gault) 32.3 BUN/Creatinine Ratio 45 (6-20) Glucose Level 109 mg/dL (70-99) Calcium Level 7.7 mg/dL (8.5-10.1) Magnesium Level 2.4 mg/dL (1.8-2.4) Total Bilirubin 0.9 mg/dL (0.2-1.0) Aspartate Amino Transf (AST/SGOT) 46 U/L (15-37) Alanine Aminotransferase (ALT/SGPT) 31 U/L (14-59) Alkaline Phosphatase 102 U/L (46-116) KD-Uzn-O-Type Natriuretic Peptide > 19797 pg/mL (0-124) Total Protein 7.9 g/dL (6.4-8.2) Albumin 3.3 g/dL (3.4-5.0) Albumin/Globulin Ratio 0.7 (1.0-1.7) Thyroid Stimulating Hormone (TSH) 0.532 uIU/mL (0.358-3.74) Free Thyroxine 0.47 ng/dL (0.76-1.46) Free Triiodothyronine (T3) pg/mL < 0.50 pg/mL (2.18-3.98) Urine Collection Type U cath Urine Color Yellow Urine Clarity Clear Urine pH 5.5 Urine Specific [place] 1.015 Urine Protein Negative mg/dL (NEG-TRACE) Urine Glucose (UA) Negative mg/dL (NEG) Urine Ketones (Stick) Negative mg/dL (NEG) Urine Blood Small (NEG) Urine Nitrite Negative (NEG) Urine Bilirubin Negative (NEG) Urine Urobilinogen Dipstick 1.0 mg/dL (0.2 mg/dL) Urine Leukocyte Esterase Moderate (NEG) Urine RBC 3-5 /HPF (0-2) Urine WBC 11-20 /HPF (0-4) Urine Squamous Epithelial Cells Few /LPF Urine Bacteria Many /HPF (0-FEW) Urine Hyaline Casts Moderate /HPF Test 03/20/19 02:50 03/20/19 05:30 03/20/19 07:53 03/20/19 10:00 Ionized Calcium 1.01 mmol/L (1.13-1.32) Ammonia < 11 mcmol/L (11-34) Troponin I Quantitative 0.055 ng/mL (0.000-0.055) 0.035 ng/mL (0.000-0.055) Lactic Acid Level 4.4 mmol/L (0.4-2.0) 4.1 mmol/L (0.4-2.0) Test 03/20/19 13:25 03/21/19 04:00 Fibrinogen 260 mg/dL (200-440) Lactic Acid Level 2.8 mmol/L (0.4-2.0) White Blood Count 5.4 x10^3/uL (4.0-11.0) Red Blood Count 3.84 x10^6/uL (3.50-5.40) Hemoglobin 11.9 g/dL (12.0-15.5) Hematocrit 36.4 % (36.0-47.0) Mean Corpuscular Volume 95 fL (79-100) Mean Corpuscular Hemoglobin 31 pg (25-35) Mean Corpuscular Hemoglobin Concent 33 g/dL (31-37) Red Cell Distribution Width 16.8 % (11.5-14.5) Platelet Count 128 x10^3/uL (140-400) Neutrophils (%) (Auto) 61 % (31-73) Lymphocytes (%) (Auto) 26 % (24-48) Monocytes (%) (Auto) 13 % (0-9) Eosinophils (%) (Auto) 0 % (0-3) Basophils (%) (Auto) 0 % (0-3) Neutrophils # (Auto) 3.3 x10^3/uL (1.8-7.7) Lymphocytes # (Auto) 1.4 x10^3/uL (1.0-4.8) Monocytes # (Auto) 0.7 x10^3/uL (0.0-1.1) Eosinophils # (Auto) 0.0 x10^3/uL (0.0-0.7) Basophils # (Auto) 0.0 x10^3/uL (0.0-0.2) Prothrombin Time 23.6 SEC (11.7-14.0) Prothromb Time International Ratio 2.1 (0.8-1.1) Laboratory Tests Test 03/20/19 10:00 03/20/19 13:25 03/21/19 04:00 Lactic Acid Level 4.1 mmol/L (0.4-2.0) 2.8 mmol/L (0.4-2.0) Fibrinogen 260 mg/dL (200-440) White Blood Count 5.4 x10^3/uL (4.0-11.0) Red Blood Count 3.84 x10^6/uL (3.50-5.40) Hemoglobin 11.9 g/dL (12.0-15.5) Hematocrit 36.4 % (36.0-47.0) Mean Corpuscular Volume 95 fL (79-100) Mean Corpuscular Hemoglobin 31 pg (25-35) Mean Corpuscular Hemoglobin Concent 33 g/dL (31-37) Red Cell Distribution Width 16.8 % (11.5-14.5) Platelet Count 128 x10^3/uL (140-400) Neutrophils (%) (Auto) 61 % (31-73) Lymphocytes (%) (Auto) 26 % (24-48) Monocytes (%) (Auto) 13 % (0-9) Eosinophils (%) (Auto) 0 % (0-3) Basophils (%) (Auto) 0 % (0-3) Neutrophils # (Auto) 3.3 x10^3/uL (1.8-7.7) Lymphocytes # (Auto) 1.4 x10^3/uL (1.0-4.8) Monocytes # (Auto) 0.7 x10^3/uL (0.0-1.1) Eosinophils # (Auto) 0.0 x10^3/uL (0.0-0.7) Basophils # (Auto) 0.0 x10^3/uL (0.0-0.2) Prothrombin Time 23.6 SEC (11.7-14.0) Prothromb Time International Ratio 2.1 (0.8-1.1) FELIX MARS MD Mar 21, 2019 09:40
[2019-03-21] MEDS ORDERED: FUROSEMIDE 20 MG/2 ML VIAL. IVP ONE (10:15)
[2019-03-21] MEDS ORDERED: POTASSIUM CHLORIDE 20 MEQ TABLET.ER. PO ONE (10:15)
--- NOTE | 2019-03-21 10:28 | PDOC ---
CARDIOLOGY PROGRESS NOTE SUBJECTIVE: No new changes overnight. Denies any pain or dyspnea. OBJECTIVE: Vital Signs/I&O: Vital Signs Date Time Temp Pulse Resp B/P (MAP) Pulse Ox O2 Delivery O2 Flow Rate FiO2 03/21/19 08:56 96 94/67 03/21/19 08:00 Nasal Cannula 3.0 03/21/19 07:00 97.2 18 100 97.2 I & O 03/20/19 03/20/19 03/21/19 15:00 23:00 07:00 Intake Total 600 ml 300 ml Output Total 600 ml Balance -600 ml 600 ml 300 ml Objective: no significant changes no LE edema neck venous plethora noted irregular heart tones. soft abd CURRENT MEDICATIONS: Current Medications Medications (Trade) Dose Ordered Sig/Karen Route PRN Reason Start Time Stop Time Status Last Admin Dose Admin Levofloxacin/ Dextrose 50 ml @ 50 mls/hr Q24H IV 03/20/19 12:00 03/20/19 12:50 Benzonatate (Tessalon Perle) 100 mg TID PO 03/20/19 14:00 03/21/19 08:53 Diclofenac Sodium (Voltaren) 1 donald QID TP 03/20/19 14:00 03/21/19 08:53 Furosemide (Lasix) 40 mg DAILY PO 03/20/19 14:00 03/20/19 15:01 Levothyroxine Sodium (Synthroid) 25 mcg DAILY06 PO 03/20/19 14:00 03/21/19 05:25 Metoprolol Tartrate (Lopressor) 25 mg BID PO 03/20/19 14:00 03/21/19 08:56 Fluticasone Propionate (Flonase) 2 spray DAILY NS 03/20/19 14:00 03/21/19 08:53 Gabapentin (Neurontin) 600 mg DAILY PO 03/20/19 14:00 03/21/19 08:53 Albuterol/ Ipratropium (Duoneb) 3 ml RTQID NEB 03/20/19 16:00 03/21/19 06:38 Lactobacillus Rhamnosus (Culturelle) 1 cap BID PO 03/20/19 21:00 03/21/19 08:53 Phytonadione (Mephyton Oral Soln) 1 mg 1X ONCE PO 03/20/19 15:15 03/20/19 15:16 DC 03/20/19 15:29 DIAGNOSTIC TESTING: labs pending, cxr pending Labs: Laboratory Tests 03/21/19 04:00 Laboratory Tests Test 03/20/19 13:25 03/21/19 04:00 Fibrinogen 260 mg/dL (200-440) Lactic Acid Level 2.8 mmol/L (0.4-2.0) H White Blood Count 5.4 x10^3/uL (4.0-11.0) Red Blood Count 3.84 x10^6/uL (3.50-5.40) Hemoglobin 11.9 g/dL (12.0-15.5) L Hematocrit 36.4 % (36.0-47.0) Mean Corpuscular Volume 95 fL (79-100) Mean Corpuscular Hemoglobin 31 pg (25-35) Mean Corpuscular Hemoglobin Concent 33 g/dL (31-37) Red Cell Distribution Width 16.8 % (11.5-14.5) H Platelet Count 128 x10^3/uL (140-400) L Neutrophils (%) (Auto) 61 % (31-73) Lymphocytes (%) (Auto) 26 % (24-48) Monocytes (%) (Auto) 13 % (0-9) H Eosinophils (%) (Auto) 0 % (0-3) Basophils (%) (Auto) 0 % (0-3) Neutrophils # (Auto) 3.3 x10^3/uL (1.8-7.7) Lymphocytes # (Auto) 1.4 x10^3/uL (1.0-4.8) Monocytes # (Auto) 0.7 x10^3/uL (0.0-1.1) Eosinophils # (Auto) 0.0 x10^3/uL (0.0-0.7) Basophils # (Auto) 0.0 x10^3/uL (0.0-0.2) Prothrombin Time 23.6 SEC (11.7-14.0) H Prothromb Time International Ratio 2.1 (0.8-1.1) H Activated Partial Thromboplast Time 43 SEC (24-38) H ASSESSMENT: 1. 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 Moderate AI 3. Severe p. HTN 4. Sepsis with UTI 5. CKD with Cr 1.9 PLAN: 1. Overall, patient is quite emaciated and weak 2. continue aggresive care for sepsis and will try to diurese as able. Thanks FREDA LANDON MD Mar 21, 2019 10:28
--- NOTE | 2019-03-21 10:48 | RAD ---
EXAM: Chest, single view. HISTORY: Shortness of air. COMPARISON: 03/19/2019 FINDINGS: A frontal view of the chest is obtained. There has been interval increase in right lower lobe predominant interstitial infiltrate and small pleural effusions. There is stable cardiomegaly. There is no pneumothorax. IMPRESSION: 1. Increase in right lower lobe predominant diffuse interstitial infiltrate and small pleural effusions. 2. Stable cardiomegaly. Electronically signed by: Patty Dennis MD (03/21/2019 10:45 AM) [facility] [place]
[2019-03-21 11:00] VITALS: BP 102/56
[2019-03-21 12:27] LABS: CALCIUM 8.4 mg/dL (8.5-10.1); CREATININE 1.8 mg/dL (0.6-1.0); GFR 34.4; POTASSIUM 3.2 mmol/L (3.5-5.1)
--- NOTE | 2019-03-21 13:27 | PDOC ---
[employer] PROGRESS NOTE Chief Complaint Chief Complaint Mental status change secondary to UTI with sepsis CHF Renal failure History of Present Illness History of Present Illness March 21, 2019 Patient seen and examined Discussed with RN Chart reviewed Patient is quite weak Vitals/I&O Vitals/I&O: Vital Signs Date Time Temp Pulse Resp B/P (MAP) Pulse Ox O2 Delivery O2 Flow Rate FiO2 03/21/19 11:00 97.4 96 18 102/56 (71) 100 Nasal Cannula 3.0 97.4 I & O 03/20/19 03/20/19 03/21/19 15:00 23:00 07:00 Intake Total 600 ml 300 ml Output Total 600 ml Balance -600 ml 600 ml 300 ml Physical Exam General: Other (extremely weak and barely talk) Heart: Regular rate, Normal S1 Lungs: Clear Abdomen: Normal bowel sounds, Soft Extremities: No clubbing, No cyanosis Skin: No rashes, No breakdown Labs Labs: Laboratory Tests Test 03/21/19 04:00 03/21/19 11:15 White Blood Count 5.4 x10^3/uL (4.0-11.0) Red Blood Count 3.84 x10^6/uL (3.50-5.40) Hemoglobin 11.9 g/dL (12.0-15.5) Hematocrit 36.4 % (36.0-47.0) Mean Corpuscular Volume 95 fL (79-100) Mean Corpuscular Hemoglobin 31 pg (25-35) Mean Corpuscular Hemoglobin Concent 33 g/dL (31-37) Red Cell Distribution Width 16.8 % (11.5-14.5) Platelet Count 128 x10^3/uL (140-400) Neutrophils (%) (Auto) 61 % (31-73) Lymphocytes (%) (Auto) 26 % (24-48) Monocytes (%) (Auto) 13 % (0-9) Eosinophils (%) (Auto) 0 % (0-3) Basophils (%) (Auto) 0 % (0-3) Neutrophils # (Auto) 3.3 x10^3/uL (1.8-7.7) Lymphocytes # (Auto) 1.4 x10^3/uL (1.0-4.8) Monocytes # (Auto) 0.7 x10^3/uL (0.0-1.1) Eosinophils # (Auto) 0.0 x10^3/uL (0.0-0.7) Basophils # (Auto) 0.0 x10^3/uL (0.0-0.2) Prothrombin Time 23.6 SEC (11.7-14.0) Prothromb Time International Ratio 2.1 (0.8-1.1) Activated Partial Thromboplast Time 43 SEC (24-38) Sodium Level 136 mmol/L (136-145) Potassium Level 3.2 mmol/L (3.5-5.1) Chloride Level 100 mmol/L (98-107) Carbon Dioxide Level 27 mmol/L (21-32) Anion Gap 9 (6-14) Blood Urea Nitrogen 76 mg/dL (7-20) Creatinine 1.8 mg/dL (0.6-1.0) Estimated GFR (Cockcroft-Gault) 34.4 Glucose Level 101 mg/dL (70-99) Calcium Level 8.4 mg/dL (8.5-10.1) Ionized Calcium 1.05 mmol/L (1.13-1.32) Lactate Dehydrogenase 259 U/L (81-234) Review of Systems Review of Systems: Complains of weakness complains of hunger and pain Assessment and Plan Assessmemt and Plan Problems Medical Problems: (1) Acute renal insufficiency Status: Acute (2) Altered mental status Status: Acute (3) CHF exacerbation Status: Acute (4) Elevated INR Status: Acute (5) Septic shock Status: Acute (6) UTI (urinary tract infection) Status: Acute Sepsis secondary to urinary tract infection Plan I ordered IV Levaquin [address] Drake because her INR is high although she is on Eliquis Home meds IV fluids PT OT DVT prophylaxis Full code Prognosis guarded Will trend labs Discussed with RN Comment Review of Relevant I have reviewed the following items suad (where applicable) has been applied. Medications: Current Medications Medications (Trade) Dose Ordered Sig/Karen Route PRN Reason Start Time Stop Time Status Last Admin Dose Admin Benzonatate (Tessalon Perle) 100 mg TID PO 03/20/19 14:00 03/21/19 08:53 Diclofenac Sodium (Voltaren) 1 donald QID TP 03/20/19 14:00 03/21/19 12:53 Furosemide (Lasix) 40 mg DAILY PO 03/20/19 14:00 03/20/19 15:01 Levothyroxine Sodium (Synthroid) 25 mcg DAILY06 PO 03/20/19 14:00 03/21/19 05:25 Metoprolol Tartrate (Lopressor) 25 mg BID PO 03/20/19 14:00 03/21/19 08:56 Fluticasone Propionate (Flonase) 2 spray DAILY NS 03/20/19 14:00 03/21/19 08:53 Gabapentin (Neurontin) 600 mg DAILY PO 03/20/19 14:00 03/21/19 08:53 Albuterol/ Ipratropium (Duoneb) 3 ml RTQID NEB 03/20/19 16:00 03/21/19 13:11 Lactobacillus Rhamnosus (Culturelle) 1 cap BID PO 03/20/19 21:00 03/21/19 08:53 Phytonadione (Mephyton Oral Soln) 1 mg 1X ONCE PO 03/20/19 15:15 03/20/19 15:16 DC 03/20/19 15:29 Furosemide (Lasix) 20 mg 1X ONCE IVP 03/21/19 10:15 03/21/19 10:17 DC 03/21/19 12:53 Potassium Chloride (Klor-Con) 80 meq 1X ONCE PO 03/21/19 10:15 03/21/19 10:17 DC 03/21/19 12:53 MARCO WILBURN III DO Mar 21, 2019 13:27
[2019-03-21 15:00] VITALS: BP 108/67
[2019-03-21 19:25] VITALS: BP 116/72
[2019-03-21 22:50] VITALS: BP 100/65
[2019-03-22 03:05] VITALS: BP 98/54
[2019-03-22] MEDS: LEVOTHYROXINE 25 MCG TABLET. PO SCH (05:45)
[2019-03-22 07:00] VITALS: BP 104/77
[2019-03-22] MEDS: IPRATRPIUM/ALBUTEROL 0.5/2.5MG 3 ML NEBU. NEB SCH ×4 (07:19→19:49)
[2019-03-22 08:39] LABS: BASO % 1 % (0-3); EOS # 0.1 x10^3/uL (0.0-0.7); EOS % 1 % (0-3); HEMATOCRIT 37.4 % (36.0-47.0); LYMPH # 0.8 x10^3/uL (1.0-4.8); LYMPH % 14 % (24-48); MEAN CORPUSCULAR HEMOGLOBIN 30 pg (25-35); MEAN CORPUSCULAR HGB CONC 32 g/dL (31-37); MEAN CORPUSCULAR VOLUME 95 fL (79-100); MONO # 0.3 x10^3/uL (0.0-1.1); MONO % 5 % (0-9); NEUT # 4.1 x10^3/uL (1.8-7.7); NEUT % 78 % (31-73); PLATELET COUNT 142 x10^3/uL (140-400); PROTHROMBIN TIME PATIENT 16.4 SEC (11.7-14.0); RED BLOOD COUNT 3.95 x10^6/uL (3.50-5.40); RED CELL DISTRIBUTION WIDTH 16.5 % (11.5-14.5); WHITE BLOOD COUNT 5.3 x10^3/uL (4.0-11.0)
[2019-03-22] MEDS: METOPROLOL TART IMMED RELEASE 25 MG TABLET. PO SCH ×2 (09:31→20:40)
[2019-03-22] MEDS: LACTOBACILLUS RHAMNOSUS GG 1 CAPSULE. PO SCH ×2 (09:31→20:39)
[2019-03-22] MEDS: GABAPENTIN 300 MG CAPSULE. PO SCH (09:32)
[2019-03-22] MEDS: BENZONATATE 100 MG CAPSULE. PO SCH ×3 (09:32→20:39)
[2019-03-22] MEDS: DICLOFENAC SODIUM 1% TOPICAL GEL 100GM TUBE. TP SCH ×4 (09:32→20:40)
[2019-03-22] MEDS: FUROSEMIDE 40 MG TABLET. PO SCH (09:32)
[2019-03-22] MEDS: FLUTICASONE 50MCG/NASAL SPRAY 16GM BOTTLE. NS SCH (09:32)
--- NOTE | 2019-03-22 09:54 | PDOC ---
SUBJECTIVE Subjective S: Doing better, would like to go home O: Physical exam: Gen.: Thin, resting in bed, no acute distress Lungs: Breathing comfortably Psychiatric: Pleasant mood and affect Labs: INR down to 1.4, PTT normal, white count 5.3, hemoglobin 12 and platelets of 142, creatinine of 1.8 Assessment and Plan: She is a 63-year-old female admitted with heart failure and confusion being treated for UTI as well with malnutrition post thyroidectomy and noted coagulopathy. Prolonged INR: Improved with vitamin K, INR less than 1.5 today, recommend continued focus on good nutrition PTT: Normal today Thrombocytopenia: Very slight, improved, no further workup necessary at this time Heart failure: Per cardiology UTI: On antibiotics, per primary Tobacco abuse: Is on a nicotine patch, recommend smoking cessation Post thyroidectomy: Is on thyroid replacement, per primary Malnutrion: She is eating, nutrition consult has been placed A. fib: Anticoagulation on hold at the moment with mild coagulopathy, can restart per her cardiology recommendations as needed Position: Per others, follow-up with primary and us prn Thank you kindly and please do not hesitate to call with questions. OBJECTIVE Vital Signs Vital Signs Date Time Temp Pulse Resp B/P (MAP) Pulse Ox O2 Delivery O2 Flow Rate FiO2 03/22/19 09:31 119 104/77 03/22/19 07:20 98 Nasal Cannula 2.0 03/22/19 07:00 98.2 119 18 104/77 (86) 94 Nasal Cannula 2.0 98.2 03/22/19 03:05 97.8 108 20 98/54 (69) 100 Nasal Cannula 2.0 97.8 03/21/19 22:50 98.7 118 18 100/65 (77) 99 Nasal Cannula 2.0 98.7 03/21/19 20:46 114 116/72 03/21/19 20:04 Nasal Cannula 2.0 03/21/19 19:25 98.4 114 20 116/72 (87) 100 Nasal Cannula 2.0 98.4 03/21/19 18:36 100 Nasal Cannula 2.0 03/21/19 16:21 98 Nasal Cannula 2.0 03/21/19 15:00 97.4 102 18 108/67 (81) 100 Nasal Cannula 2.0 97.4 03/21/19 13:23 97 Nasal Cannula 2.0 03/21/19 11:00 97.4 96 18 102/56 (71) 100 Nasal Cannula 3.0 97.4 I & O Intake and Output 03/22/19 07:00 Intake Total 520 ml Balance 520 ml Intake Oral 520 ml # Voids 3 COMMENT Lab Laboratory Tests Test 03/21/19 11:15 03/22/19 08:07 Sodium Level 136 mmol/L (136-145) Potassium Level 3.2 mmol/L (3.5-5.1) Chloride Level 100 mmol/L (98-107) Carbon Dioxide Level 27 mmol/L (21-32) Anion Gap 9 (6-14) Blood Urea Nitrogen 76 mg/dL (7-20) Creatinine 1.8 mg/dL (0.6-1.0) Estimated GFR (Cockcroft-Gault) 34.4 Glucose Level 101 mg/dL (70-99) Calcium Level 8.4 mg/dL (8.5-10.1) Ionized Calcium 1.05 mmol/L (1.13-1.32) Lactate Dehydrogenase 259 U/L (81-234) White Blood Count 5.3 x10^3/uL (4.0-11.0) Red Blood Count 3.95 x10^6/uL (3.50-5.40) Hemoglobin 12.0 g/dL (12.0-15.5) Hematocrit 37.4 % (36.0-47.0) Mean Corpuscular Volume 95 fL (79-100) Mean Corpuscular Hemoglobin 30 pg (25-35) Mean Corpuscular Hemoglobin Concent 32 g/dL (31-37) Red Cell Distribution Width 16.5 % (11.5-14.5) Platelet Count 142 x10^3/uL (140-400) Neutrophils (%) (Auto) 78 % (31-73) Lymphocytes (%) (Auto) 14 % (24-48) Monocytes (%) (Auto) 5 % (0-9) Eosinophils (%) (Auto) 1 % (0-3) Basophils (%) (Auto) 1 % (0-3) Neutrophils # (Auto) 4.1 x10^3/uL (1.8-7.7) Lymphocytes # (Auto) 0.8 x10^3/uL (1.0-4.8) Monocytes # (Auto) 0.3 x10^3/uL (0.0-1.1) Eosinophils # (Auto) 0.1 x10^3/uL (0.0-0.7) Basophils # (Auto) 0.0 x10^3/uL (0.0-0.2) Prothrombin Time 16.4 SEC (11.7-14.0) Prothromb Time International Ratio 1.4 (0.8-1.1) Activated Partial Thromboplast Time 35 SEC (24-38) FELIX OJEDA MD Mar 22, 2019 09:54
--- NOTE | 2019-03-22 10:24 | PDOC ---
CHANELL MCCALL APPEALS EXAMINER 03/22/19 1024: CARDIO Progress Notes Date and Time Date of Service 03/22/19 Time of Evaluation 1015 Subjective Subjective: No Chest Pain, No shortness of breath, Other (c/o throat soreness) Vitals Vitals Vital Signs Date Time Temp Pulse Resp B/P (MAP) Pulse Ox O2 Delivery O2 Flow Rate FiO2 03/22/19 09:31 119 104/77 03/22/19 07:20 98 Nasal Cannula 2.0 03/22/19 07:00 98.2 18 98.2 Weight Weight [ ] Input and Output Intake and Output Intake and Output 03/22/19 07:00 Intake Total 520 ml Balance 520 ml Intake Oral 520 ml # Voids 3 Laboratory Labs Laboratory Tests Test 03/21/19 11:15 03/22/19 08:07 Sodium Level 136 mmol/L (136-145) Potassium Level 3.2 mmol/L (3.5-5.1) Chloride Level 100 mmol/L (98-107) Carbon Dioxide Level 27 mmol/L (21-32) Anion Gap 9 (6-14) Blood Urea Nitrogen 76 mg/dL (7-20) Creatinine 1.8 mg/dL (0.6-1.0) Estimated GFR (Cockcroft-Gault) 34.4 Glucose Level 101 mg/dL (70-99) Calcium Level 8.4 mg/dL (8.5-10.1) Ionized Calcium 1.05 mmol/L (1.13-1.32) Lactate Dehydrogenase 259 U/L (81-234) White Blood Count 5.3 x10^3/uL (4.0-11.0) Red Blood Count 3.95 x10^6/uL (3.50-5.40) Hemoglobin 12.0 g/dL (12.0-15.5) Hematocrit 37.4 % (36.0-47.0) Mean Corpuscular Volume 95 fL (79-100) Mean Corpuscular Hemoglobin 30 pg (25-35) Mean Corpuscular Hemoglobin Concent 32 g/dL (31-37) Red Cell Distribution Width 16.5 % (11.5-14.5) Platelet Count 142 x10^3/uL (140-400) Neutrophils (%) (Auto) 78 % (31-73) Lymphocytes (%) (Auto) 14 % (24-48) Monocytes (%) (Auto) 5 % (0-9) Eosinophils (%) (Auto) 1 % (0-3) Basophils (%) (Auto) 1 % (0-3) Neutrophils # (Auto) 4.1 x10^3/uL (1.8-7.7) Lymphocytes # (Auto) 0.8 x10^3/uL (1.0-4.8) Monocytes # (Auto) 0.3 x10^3/uL (0.0-1.1) Eosinophils # (Auto) 0.1 x10^3/uL (0.0-0.7) Basophils # (Auto) 0.0 x10^3/uL (0.0-0.2) Prothrombin Time 16.4 SEC (11.7-14.0) Prothromb Time International Ratio 1.4 (0.8-1.1) Activated Partial Thromboplast Time 35 SEC (24-38) Microbiology Micro Microbiology 03/20/19 Blood Culture - Preliminary, Resulted NO GROWTH AFTER 2 DAYS Physical Exam HEENT: Neck Supple W Full Motion Chest: Symmetric LUNGS: Clear to Auscultation Heart: S1S2, irregularly irregular Abdomen: Soft N/T Extremities: Other (trace bilateral LE edema ) Neurology: alert, oriented, follow commands Assessment Assessment 1. Presumed ICM; LVEF 40-45% 2. Chronic systolic CHF; appears compensated 3. NEGRITO on CKD 4. AFIB, persistent; on Eliquis at home for stroke prevention with has been held with elevated INR. rate mildly elevated at 120 5. Coagulopathy ;INR 5.5 upon arrival 6. Hypertension 7. Moderate AI 8. Severe pulHTN 9. Lactic acidosis, sepsis with UTI 10. Hyperthyroidism s/p thyroidectomy. on replacement therapy Recommendations Continue metoprolol for rate control Dig IV x1 now Lasix therapy Will likely resume low-dose Eliquis prior to discharge Supportive care FREDA LANDON MD 03/22/192031: CARDIO Progress Notes Plan Plan Patient seen and examined. Agree with above nurse practitioner note. I had a long discussion with 2 of her daughters regarding her current cardiac issues. She has persistent atrial fibrillation in the setting of recent UTI and also recent thyroid surgery. At this present time continue rate control and treatment of her underlying issues. We will restart her anticoagulation at a dose of Eliquis 2.5 mg twice a day to prevent any significant coagulopathy as that occurred prior to her admission this time. She may benefit from rehabilitation but we will defer this to the primary service and the patient's family. She does appear to have heart failure but currently is close to her euvolemic state. Gentle diuresis as tolerated to keep i/o even CHANELL MCCALL APRN Mar 22, 2019 10:24 FREDA LANDON MD Mar 22, 2019 20:32
[2019-03-22] MEDS ORDERED: POTASSIUM CHLORIDE 20 MEQ TABLET.ER. PO ONE (10:30)
[2019-03-22] MEDS ORDERED: DIGOXIN IV 500 MCG/2 ML AMPUL. IV ONE (10:45)
[2019-03-22 10:48] VITALS: BP 108/85
--- NOTE | 2019-03-22 12:44 | PDOC ---
[facility] PROGRESS NOTE Chief Complaint Chief Complaint Mental status change secondary to UTI with sepsis CHF Renal failure History of Present Illness History of Present Illness March 21, 2019 Patient seen and examined Discussed with RN Chart reviewed Patient is quite weak [phone] Patient seen and examined Chart reviewed She still looks quite ill Has a cough and is very weak Discussed with RN Vitals/I&O Vitals/I&O: Vital Signs Date Time Temp Pulse Resp B/P (MAP) Pulse Ox O2 Delivery O2 Flow Rate FiO2 03/22/19 11:38 98 Nasal Cannula 2.0 03/22/19 10:48 98.5 111 20 108/85 (93) 98.5 I & O 03/21/19 03/21/19 03/22/19 15:00 23:00 07:00 Intake Total 180 ml 340 ml Balance 180 ml 340 ml Physical Exam General: Other (extremely weak and barely talk) Heart: Regular rate, Normal S1 Lungs: Clear Abdomen: Normal bowel sounds, Soft Extremities: No clubbing, No cyanosis Skin: No rashes, No breakdown Labs Labs: Laboratory Tests Test 03/22/19 08:00 03/22/19 08:07 Magnesium Level 2.1 mg/dL (1.8-2.4) White Blood Count 5.3 x10^3/uL (4.0-11.0) Red Blood Count 3.95 x10^6/uL (3.50-5.40) Hemoglobin 12.0 g/dL (12.0-15.5) Hematocrit 37.4 % (36.0-47.0) Mean Corpuscular Volume 95 fL (79-100) Mean Corpuscular Hemoglobin 30 pg (25-35) Mean Corpuscular Hemoglobin Concent 32 g/dL (31-37) Red Cell Distribution Width 16.5 % (11.5-14.5) Platelet Count 142 x10^3/uL (140-400) Neutrophils (%) (Auto) 78 % (31-73) Lymphocytes (%) (Auto) 14 % (24-48) Monocytes (%) (Auto) 5 % (0-9) Eosinophils (%) (Auto) 1 % (0-3) Basophils (%) (Auto) 1 % (0-3) Neutrophils # (Auto) 4.1 x10^3/uL (1.8-7.7) Lymphocytes # (Auto) 0.8 x10^3/uL (1.0-4.8) Monocytes # (Auto) 0.3 x10^3/uL (0.0-1.1) Eosinophils # (Auto) 0.1 x10^3/uL (0.0-0.7) Basophils # (Auto) 0.0 x10^3/uL (0.0-0.2) Prothrombin Time 16.4 SEC (11.7-14.0) Prothromb Time International Ratio 1.4 (0.8-1.1) Activated Partial Thromboplast Time 35 SEC (24-38) Assessment and Plan Assessmemt and Plan Problems Medical Problems: (1) Acute renal insufficiency Status: Acute (2) Altered mental status Status: Acute (3) CHF exacerbation Status: Acute (4) Elevated INR Status: Acute (5) Septic shock Status: Acute (6) UTI (urinary tract infection) Status: Acute Sepsis secondary to urinary tract infection CHF Debility Metabolic encephalopathy Plan I ordered IV Levaquin [address] Drake because her INR is high although she is on Eliquis Home meds IV fluids PT OT DVT prophylaxis Full code Prognosis guarded Will trend labs Discussed with RN Probably needs to go to longterm Comment Review of Relevant I have reviewed the following items suad (where applicable) has been applied. Medications: Current Medications Medications (Trade) Dose Ordered Sig/Karen Route PRN Reason Start Time Stop Time Status Last Admin Dose Admin Potassium Chloride (Klor-Con) 40 meq 1X ONCE PO 03/22/19 10:30 03/22/19 10:31 DC 03/22/19 10:43 Digoxin (Lanoxin) 250 mcg 1X ONCE IV 03/22/19 10:45 03/22/19 10:46 DC 03/22/19 10:43 MARCO WILBURN III DO Mar 22, 2019 12:43
--- NOTE | 2019-03-22 12:47 | NUR ---
SS following for discharge planning. SS reviewed pt chart. Pt is from home with daughter and is currently requiring oxygen. SS will continue to follow for discharge planning.
[2019-03-22 14:36] VITALS: BP 115/66
[2019-03-22 19:30] VITALS: BP 118/74
[2019-03-22 22:45] VITALS: BP 123/71
[2019-03-22] MEDS: HYDROcodone/APAP 5/325MG 1 TAB TABLET PO PRN (23:21)
[2019-03-23 03:10] VITALS: BP 137/80
--- NOTE | 2019-03-23 03:32 | NUR ---
Change of care note: Pt sitting up on side of bed poc explained call light in reach bed alarm set will resume care and continue to monitor pt.
[2019-03-23] MEDS: LEVOTHYROXINE 25 MCG TABLET. PO SCH (06:10)
[2019-03-23 07:00] VITALS: BP 106/58
[2019-03-23] MEDS: IPRATRPIUM/ALBUTEROL 0.5/2.5MG 3 ML NEBU. NEB SCH ×4 (07:35→20:26)
[2019-03-23] MEDS: LACTOBACILLUS RHAMNOSUS GG 1 CAPSULE. PO SCH ×2 (08:20→20:52)
[2019-03-23] MEDS: BENZONATATE 100 MG CAPSULE. PO SCH ×3 (08:20→20:52)
[2019-03-23] MEDS: GABAPENTIN 300 MG CAPSULE. PO SCH (08:20)
[2019-03-23] MEDS: DICLOFENAC SODIUM 1% TOPICAL GEL 100GM TUBE. TP SCH ×4 (08:21→20:52)
[2019-03-23] MEDS: FUROSEMIDE 40 MG TABLET. PO SCH (08:21)
[2019-03-23] MEDS: METOPROLOL TART IMMED RELEASE 25 MG TABLET. PO SCH ×2 (08:21→20:52)
[2019-03-23] MEDS: FLUTICASONE 50MCG/NASAL SPRAY 16GM BOTTLE. NS SCH (08:22)
[2019-03-23 11:19] VITALS: BP 110/80
--- NOTE | 2019-03-23 11:19 | PDOC ---
[facility] [facility] PROGRESS NOTE Chief Complaint Chief Complaint Mental status change secondary to UTI with sepsis CHF Renal failure History of Present Illness History of Present Illness March 21, 2019 Patient seen and examined Discussed with RN Chart reviewed Patient is quite weak 122 319 Patient seen and examined Chart reviewed She still looks quite ill Has a cough and is very weak Discussed with RN 03/23/19 Patient seen and examined She is still extremely weak I try to get her up but it took a manner so for her chest only get to the edge of the bed Discussed with her daughters and the nurse Chart reviewed Vitals/I&O Vitals/I&O: Vital Signs Date Time Temp Pulse Resp B/P (MAP) Pulse Ox O2 Delivery O2 Flow Rate FiO2 03/23/19 08:21 89 106/58 03/23/19 07:36 99 Nasal Cannula 2.0 03/23/19 07:00 97.9 18 97.9 I & O 03/22/19 03/22/19 03/23/19 15:00 23:00 07:00 Intake Total 240 ml 120 ml 570 ml Balance 240 ml 120 ml 570 ml Physical Exam General: Other (extremely weak and barely talk) Heart: Regular rate, Normal S1 Lungs: Clear Abdomen: Normal bowel sounds, Soft Extremities: No clubbing, No cyanosis Skin: No rashes, No breakdown Assessment and Plan Assessmemt and Plan Problems Medical Problems: (1) Acute renal insufficiency Status: Acute (2) Altered mental status Status: Acute (3) CHF exacerbation Status: Acute (4) Elevated INR Status: Acute (5) Septic shock Status: Acute (6) UTI (urinary tract infection) Status: Acute Sepsis secondary to urinary tract infection CHF Debility Metabolic encephalopathy Plan IV Levaquin 250 daily Home meds IV fluids PT OT DVT prophylaxis Full code Prognosis guarded Will trend labs Discussed with RN Probably needs to go to [facility] Comment Review of Relevant I have reviewed the following items suad (where applicable) has been applied. MARCO WILBURN III DO Mar 23, 2019 11:19
[2019-03-23 12:43] LABS: RED BLOOD COUNT 4.87 x10^6/uL (3.50-5.40); RED CELL DISTRIBUTION WIDTH 19.1 % (11.5-14.5); WHITE BLOOD COUNT 4.8 x10^3/uL (4.0-11.0)
[2019-03-23 12:49] LABS: CALCIUM 8.8 mg/dL (8.5-10.1); CREATININE 1.4 mg/dL (0.6-1.0); POTASSIUM 4.1 mmol/L (3.5-5.1)
--- NOTE | 2019-03-23 13:09 | PDOC ---
MARLEEN CEBALLOS DENIAL MANAGEMENT REPRESENTATIVE 03/23/19 1309: CARDIO Progress Notes Date and Time Date of Service 03/23/2019 Time of Evaluation 1045 Subjective Subjective: No Chest Pain, No shortness of breath, No Palpitations, Other (sitting, no pain) Vitals Vitals Vital Signs Date Time Temp Pulse Resp B/P (MAP) Pulse Ox O2 Delivery O2 Flow Rate FiO2 03/23/19 11:40 Nasal Cannula 2.0 03/23/19 11:19 97.9 86 18 110/80 (90) 95 97.9 Weight Weight [ ] Input and Output Intake and Output Intake and Output 03/23/19 07:00 Intake Total 930 ml Balance 930 ml Intake Oral 930 ml # Voids 2 # Bowel Movements 1 Laboratory Labs Laboratory Tests Test 03/23/19 12:35 White Blood Count 4.8 x10^3/uL (4.0-11.0) Red Blood Count 4.87 x10^6/uL (3.50-5.40) Hemoglobin 15.0 g/dL (12.0-15.5) Hematocrit 47.0 % (36.0-47.0) Mean Corpuscular Volume 97 fL (79-100) Mean Corpuscular Hemoglobin 31 pg (25-35) Mean Corpuscular Hemoglobin Concent 32 g/dL (31-37) Red Cell Distribution Width 19.1 % (11.5-14.5) Platelet Count 138 x10^3/uL (140-400) Sodium Level 141 mmol/L (136-145) Potassium Level 4.1 mmol/L (3.5-5.1) Chloride Level 104 mmol/L (98-107) Carbon Dioxide Level 31 mmol/L (21-32) Anion Gap 6 (6-14) Blood Urea Nitrogen 46 mg/dL (7-20) Creatinine 1.4 mg/dL (0.6-1.0) Estimated GFR (Cockcroft-Gault) 46.0 Glucose Level 56 mg/dL (70-99) Calcium Level 8.8 mg/dL (8.5-10.1) Microbiology Micro Microbiology 03/20/19 Blood Culture - Preliminary, Resulted NO GROWTH AFTER 3 DAYS 03/20/19 Urine Culture - Preliminary, Resulted 03/20/19 Urine Culture Result 1 ([facility]) - Preliminary, Resulted Physical Exam HEENT: Neck Supple W Full Motion Chest: Symmetric LUNGS: Other (basilar crackles) Heart: irregularly irregular (AFIB) Abdomen: Soft N/T Extremities: Other (trace bilateral LE edema ) Neurology: alert, oriented, follow commands Assessment Assessment 1. Presumed NICM; LVEF 40-45% with previous hyperthyroidism and AFIB RVRs 2. Acute on chronic systolic CHF: no SOA 3. NEGRITO on CKD: most likely from significantly poor hydration 4. Persistent AFIB: initially with RVR, now better controlled 5. Coagulopathy: INR 5.5 unclear etiology but significant NEGRITO, possible liver disease, sepsis were part of the differential with associated use of eliquis 6. Hypertension: controlled 7. Moderate AI 8. Severe pulmonary HTN 9. Lactic acidosis, sepsis with UTI. Abx per PCP 10. Acquired hypothyroidism: recent thyroidectomy. On replacement Recommendations 1. Continue lasix therapy. PCXR today 2. Continue metoprolol for rate control 3. I discussed with daughter her treatment and reported that sometimes she does not take her meds unless supervised and poor PO hydration. Discussed better supervision and agrees for potential SNU. 4. Restart eliquis for stroke prevention at 2.5 mg bid 5. Follow up as scheduled 6. Smoking cessation GUCCI SCHMITZ MD 03/23/19 1516: CARDIO Progress Notes Assessment Assessment Patient seen and examined. Agree with POURER BUGGY LADLE's assessment and plan. Acute on chronic systolic heart failure better compensated with diuresis. Atrial fibrillation rate better controlled. Resume eliquis for stroke prophylaxis. We will consider outpatient cardioversion. MARLEEN CEBALLOS APRN Mar 23, 2019 13:09 GUCCI SCHMITZ MD Mar 23, 2019 15:16
--- NOTE | 2019-03-23 13:58 | RAD ---
AP chest. HISTORY: CHF AP view was taken of the chest. There are bilateral effusions. The heart is enlarged. There is mild bowel distention in the abdomen. There is pulmonary vascular congestion. There are hazy infiltrates or pulmonary edema. There has been little change from the recent study. IMPRESSION: 1. Little interval change. Electronically signed by: Tayo Walker MD (03/23/2019 1:55 PM) [id number]
[2019-03-23 14:47] VITALS: BP 125/74
[2019-03-23] MEDS ORDERED: FUROSEMIDE 40 MG TABLET. PO ONE (15:30)
[2019-03-23 19:00] VITALS: BP 129/70
--- NOTE | 2019-03-23 19:25 | NUR ---
Pt sitting on edge of bed, assessment completed vss poc explained call light in reach bed alarm set will resume care and continue to monitor pt.
[2019-03-23] MEDS: APIXABAN 2.5 MG TABLET. PO SCH (20:52)
[2019-03-23 23:20] VITALS: BP 127/71
[2019-03-24 03:25] VITALS: BP 103/67
[2019-03-24] MEDS: LEVOTHYROXINE 25 MCG TABLET. PO SCH (06:41)
[2019-03-24 07:26] VITALS: BP 119/66
[2019-03-24] MEDS: IPRATRPIUM/ALBUTEROL 0.5/2.5MG 3 ML NEBU. NEB SCH ×4 (08:23→22:03)
[2019-03-24] MEDS: ANTI-COAG MONITOR BY PHARMACY. MC PRN (08:42)
[2019-03-24] MEDS: APIXABAN 2.5 MG TABLET. PO SCH ×2 (09:03→21:00)
[2019-03-24] MEDS: GABAPENTIN 300 MG CAPSULE. PO SCH (09:03)
[2019-03-24] MEDS: BENZONATATE 100 MG CAPSULE. PO SCH ×3 (09:03→21:00)
[2019-03-24] MEDS: FUROSEMIDE 40 MG TABLET. PO SCH (09:04)
[2019-03-24] MEDS: DICLOFENAC SODIUM 1% TOPICAL GEL 100GM TUBE. TP SCH ×4 (09:04→21:01)
[2019-03-24] MEDS: FLUTICASONE 50MCG/NASAL SPRAY 16GM BOTTLE. NS SCH (09:04)
[2019-03-24] MEDS: METOPROLOL TART IMMED RELEASE 25 MG TABLET. PO SCH ×2 (09:04→21:00)
[2019-03-24] MEDS: LACTOBACILLUS RHAMNOSUS GG 1 CAPSULE. PO SCH ×2 (09:04→21:00)
[2019-03-24 10:38] VITALS: BP 118/72
--- NOTE | 2019-03-24 12:02 | PDOC ---
[employer] PROGRESS NOTE Chief Complaint Chief Complaint Mental status change secondary to UTI with sepsis CHF Renal failure History of Present Illness History of Present Illness March 21, 2019 Patient seen and examined Discussed with RN Chart reviewed Patient is quite weak 122 319 Patient seen and examined Chart reviewed She still looks quite ill Has a cough and is very weak Discussed with RN 03/23/19 Patient seen and examined She is still extremely weak I try to get her up but it took a manner so for her chest only get to the edge of the bed Discussed with her daughters and the nurse Chart reviewed 03/24/19 Patient seen and examined She is up in the chair sleeping but awoke but is very depressed and weak Chart reviewed Discussed with RN Vitals/I&O Vitals/I&O: Vital Signs Date Time Temp Pulse Resp B/P (MAP) Pulse Ox O2 Delivery O2 Flow Rate FiO2 03/24/19 10:38 97.7 103 20 118/72 (87) 98 Nasal Cannula 2.0 97.7 I & O 03/23/19 03/23/19 03/24/19 15:00 23:00 07:00 Intake Total 240 ml 50 ml 540 ml Balance 240 ml 50 ml 540 ml Physical Exam General: Other (extremely weak and barely talk) Heart: Regular rate, Normal S1 Lungs: Clear Abdomen: Normal bowel sounds, Soft Extremities: No clubbing, No cyanosis Skin: No rashes, No breakdown Labs Labs: Laboratory Tests Test 03/23/19 12:35 03/24/19 11:27 White Blood Count 4.8 x10^3/uL (4.0-11.0) Red Blood Count 4.87 x10^6/uL (3.50-5.40) Hemoglobin 15.0 g/dL (12.0-15.5) Hematocrit 47.0 % (36.0-47.0) Mean Corpuscular Volume 97 fL (79-100) Mean Corpuscular Hemoglobin 31 pg (25-35) Mean Corpuscular Hemoglobin Concent 32 g/dL (31-37) Red Cell Distribution Width 19.1 % (11.5-14.5) Platelet Count 138 x10^3/uL (140-400) Sodium Level 141 mmol/L (136-145) Potassium Level 4.1 mmol/L (3.5-5.1) Chloride Level 104 mmol/L (98-107) Carbon Dioxide Level 31 mmol/L (21-32) Anion Gap 6 (6-14) Blood Urea Nitrogen 46 mg/dL (7-20) Creatinine 1.4 mg/dL (0.6-1.0) Estimated GFR (Cockcroft-Gault) 46.0 Glucose Level 56 mg/dL (70-99) Calcium Level 8.8 mg/dL (8.5-10.1) Glucose (Fingerstick) 119 mg/dL (70-99) Assessment and Plan Assessmemt and Plan Problems Medical Problems: (1) Acute renal insufficiency Status: Acute (2) Altered mental status Status: Acute (3) CHF exacerbation Status: Acute (4) Elevated INR Status: Acute (5) Septic shock Status: Acute (6) UTI (urinary tract infection) Status: Acute Sepsis secondary to urinary tract infection CHF Debility Metabolic encephalopathy Plan IV Levaquin 250 daily Home meds IV fluids PT OT DVT prophylaxis Full code Prognosis guarded Will trend labs Discussed with RN Probably needs to go to long-term Comment Review of Relevant I have reviewed the following items suad (where applicable) has been applied. Medications: Current Medications Medications (Trade) Dose Ordered Sig/Karen Route PRN Reason Start Time Stop Time Status Last Admin Dose Admin Apixaban (Eliquis) 2.5 mg BID PO 03/23/19 21:00 03/24/19 09:03 Furosemide (Lasix) 40 mg 1X ONCE PO 03/23/19 15:30 03/23/19 15:31 DC 03/23/19 15:46 Info (Anti-Coagulation Monitoring By Pharmacy) 1 each PRN DAILY PRN MC SEE COMMENTS 03/24/19 07:45 03/24/19 08:42 MARCO WILBURN III DO Mar 24, 2019 12:02
--- NOTE | 2019-03-24 12:12 | PDOC ---
PROGRESS NOTES Subjective Subjective Feeling better. Denied any palpitations. Objective Objective Vital Signs Date Time Temp Pulse Resp B/P (MAP) Pulse Ox O2 Delivery O2 Flow Rate FiO2 03/24/19 10:38 97.7 103 20 118/72 (87) 98 Nasal Cannula 2.0 97.7 Intake and Output 03/24/19 07:00 Intake Total 830 ml Balance 830 ml Intake Oral 830 ml # Voids 4 Physical Exam Abdomen: Normal bowel sounds, Soft Heart: Other (heart rate is irregular) Extremities: No edema General: Other (extremely weak and barely talk) Lungs: Other (scattered crepitations bilaterally) Assessment Assessment 1. Presumed NICM; LVEF 40-45% with previous hyperthyroidism and AFIB RVRs 2. Acute on chronic systolic CHF: no SOA 3. NEGRITO on CKD: most likely from significantly poor hydration 4. Persistent AFIB: initially with RVR, now better controlled 5. Coagulopathy: unclear etiology but significant NEGRITO, possible liver disease, sepsis were part of the differential with associated use of eliquis 6. Hypertension: controlled 7. Moderate AI 8. Severe pulmonary HTN 9. Lactic acidosis, sepsis with UTI. Abx per PCP 10. Acquired hypothyroidism: recent thyroidectomy. On replacement Recommendations 1. Continue lasix therapy. 2. Continue metoprolol for rate control 3. Continue eliquis for stroke prevention - we will consider cardioversion as an outpatient 4. Follow up as scheduled Plan Plan of Care Problems Medical Problems: (1) Acute renal insufficiency Status: Acute (2) Altered mental status Status: Acute (3) CHF exacerbation Status: Acute (4) Elevated INR Status: Acute (5) Septic shock Status: Acute (6) UTI (urinary tract infection) Status: Acute Comment Review of Relevant I have reviewed the following items suad (where applicable) has been applied. Labs Laboratory Tests Test 03/23/19 12:35 03/24/19 11:27 White Blood Count 4.8 x10^3/uL (4.0-11.0) Red Blood Count 4.87 x10^6/uL (3.50-5.40) Hemoglobin 15.0 g/dL (12.0-15.5) Hematocrit 47.0 % (36.0-47.0) Mean Corpuscular Volume 97 fL (79-100) Mean Corpuscular Hemoglobin 31 pg (25-35) Mean Corpuscular Hemoglobin Concent 32 g/dL (31-37) Red Cell Distribution Width 19.1 % (11.5-14.5) Platelet Count 138 x10^3/uL (140-400) Sodium Level 141 mmol/L (136-145) Potassium Level 4.1 mmol/L (3.5-5.1) Chloride Level 104 mmol/L (98-107) Carbon Dioxide Level 31 mmol/L (21-32) Anion Gap 6 (6-14) Blood Urea Nitrogen 46 mg/dL (7-20) Creatinine 1.4 mg/dL (0.6-1.0) Estimated GFR (Cockcroft-Gault) 46.0 Glucose Level 56 mg/dL (70-99) Calcium Level 8.8 mg/dL (8.5-10.1) Glucose (Fingerstick) 119 mg/dL (70-99) Microbiology 03/20/19 Blood Culture - Preliminary, Resulted NO GROWTH AFTER 4 DAYS 03/20/19 Urine Culture - Final, Complete 03/20/19 Urine Culture Result 1 ([facility]) - Final, Complete 03/20/19 Antimicrobic Susceptibility - Final, Complete Medications Current Medications Apixaban (Eliquis) 2.5 mg BID PO Last administered on 03/24/19at 09:03; Start 03/23/19 at 21:00 Furosemide (Lasix) 40 mg 1X ONCE PO Last administered on 03/23/19at 15:46; Start 03/23/19 at 15:30; Stop 03/23/19 at 15:31; Status DC Info (Anti-Coagulation Monitoring By Pharmacy) 1 each PRN DAILY PRN MC SEE COMMENTS Last administered on 03/24/19at 08:42; Start 03/24/19 at 07:45 Vitals/I & O Vital Sign - Last 24 Hours 03/23/19 03/23/19 03/23/19 03/23/19 14:47 15:47 19:00 19:25 Temp 97.4 99.1 97.4 99.1 Pulse 118 113 Resp 18 18 B/P (MAP) 125/74 (91) 129/70 (89) Pulse Ox 99 97 98 O2 Delivery Nasal Cannula Room Air Nasal Cannula Nasal Cannula O2 Flow Rate 2.0 2.0 2.0 03/23/19 03/23/19 03/23/19 03/24/19 20:26 20:52 23:20 03:25 Temp 98.9 98.7 98.9 98.7 Pulse 126 110 110 Resp 20 20 B/P (MAP) 129/70 127/71 (89) 103/67 (79) Pulse Ox 97 100 98 O2 Delivery Room Air Nasal Cannula Nasal Cannula O2 Flow Rate 2.0 2.0 03/24/19 03/24/19 03/24/19 03/24/19 07:26 08:00 08:24 09:04 Temp 97.9 97.9 Pulse 110 110 Resp 20 B/P (MAP) 119/66 (83) 119/66 Pulse Ox 100 100 O2 Delivery Nasal Cannula Nasal Cannula Nasal Cannula O2 Flow Rate 2.0 2.0 2.0 03/24/19 10:38 Temp 97.7 97.7 Pulse 103 Resp 20 B/P (MAP) 118/72 (87) Pulse Ox 98 O2 Delivery Nasal Cannula O2 Flow Rate 2.0 Intake and Output 03/23/19 03/23/19 03/24/19 15:00 23:00 07:00 Intake Total 240 ml 50 ml 540 ml Balance 240 ml 50 ml 540 ml GUCCI SCHMITZ MD Mar 24, 2019 12:12
[2019-03-24] MEDS: AZTREONAM IV Push 1 GM VIAL. IVP SCH ×2 (13:52→22:34)
[2019-03-24 14:26] VITALS: BP 99/66
[2019-03-24] MEDS ORDERED: DIGOXIN IV 500 MCG/2 ML AMPUL. IV ONE (15:15)
[2019-03-24 19:50] VITALS: BP 111/57
[2019-03-24 22:42] VITALS: BP 95/57
[2019-03-25 03:22] VITALS: BP 101/69
[2019-03-25] MEDS: LEVOTHYROXINE 25 MCG TABLET. PO SCH (05:22)
[2019-03-25] MEDS: HYDROcodone/APAP 5/325MG 1 TAB TABLET PO PRN (05:22)
[2019-03-25 07:00] VITALS: BP 86/56
[2019-03-25] MEDS: IPRATRPIUM/ALBUTEROL 0.5/2.5MG 3 ML NEBU. NEB SCH ×4 (08:16→19:48)
[2019-03-25] MEDS: BENZONATATE 100 MG CAPSULE. PO SCH ×3 (08:39→21:36)
[2019-03-25] MEDS: NICOTINE 21MG PATCH. TD PRN (08:39)
[2019-03-25] MEDS: FUROSEMIDE 40 MG TABLET. PO SCH (08:39)
[2019-03-25] MEDS: LACTOBACILLUS RHAMNOSUS GG 1 CAPSULE. PO SCH ×2 (08:39→21:36)
[2019-03-25] MEDS: GABAPENTIN 300 MG CAPSULE. PO SCH (08:39)
[2019-03-25] MEDS: APIXABAN 2.5 MG TABLET. PO SCH ×2 (08:40→21:36)
[2019-03-25] MEDS: METOPROLOL TART IMMED RELEASE 25 MG TABLET. PO SCH ×2 (08:40→21:37)
[2019-03-25] MEDS: FLUTICASONE 50MCG/NASAL SPRAY 16GM BOTTLE. NS SCH (08:47)
[2019-03-25] MEDS: DICLOFENAC SODIUM 1% TOPICAL GEL 100GM TUBE. TP SCH ×4 (08:47→21:38)
[2019-03-25] MEDS: AZTREONAM IV Push 1 GM VIAL. IVP SCH ×2 (08:48→21:37)
--- NOTE | 2019-03-25 10:04 | PDOC ---
MARLEEN CEBALLOS CLINIC SPECIALIST 03/25/19 1004: CARDIO Progress Notes Date and Time Date of Service 03/25/2019 Time of Evaluation 0945 Subjective Subjective: No Chest Pain, No shortness of breath, No Palpitations, Other (still has cough) Vitals Vitals Vital Signs Date Time Temp Pulse Resp B/P (MAP) Pulse Ox O2 Delivery O2 Flow Rate FiO2 03/25/19 08:40 91 131/68 03/25/19 08:16 Nasal Cannula 2.0 03/25/19 07:00 97.4 18 99 97.4 Weight Weight [ ] Input and Output Intake and Output Intake and Output 03/25/19 07:00 Intake Total 1500 ml Output Total 500 ml Balance 1000 ml Intake Oral 1500 ml Output Urine Total 500 ml # Voids 6 # Bowel Movements 2 Laboratory Labs Laboratory Tests Test 03/24/19 11:27 03/25/19 07:43 Glucose (Fingerstick) 119 mg/dL (70-99) 85 mg/dL (70-99) Microbiology Micro Microbiology 03/20/19 Blood Culture - Final, Complete NO GROWTH AFTER 5 DAYS 03/20/19 Urine Culture - Final, Complete 03/20/19 Urine Culture Result 1 (SUMMER) - Final, Complete 03/20/19 Antimicrobic Susceptibility - Final, Complete Physical Exam HEENT: Neck Supple W Full Motion Chest: Symmetric LUNGS: Other (basilar crackles) Heart: irregularly irregular (atrial flutter) Abdomen: Soft N/T Extremities: Other (trace bilateral LE edema ) Neurology: alert, oriented, follow commands Assessment Assessment 1. Presumed NICM; LVEF 40-45% with previous hyperthyroidism and AFIB RVRs 2. Acute on chronic systolic CHF: appears compensated 3. NEGRITO on CKD: most likely from significantly poor hydration 4. Persistent AFIB: presently on rate controlled atrial flutter with variable conduction 5. Coagulopathy: INR 5.5 unclear etiology possibly from contributing hypoperfusion, significant NEGRITO, sepsis were all part of the differential with associated use of eliquis. Better at 1.3 6. Hypertension: controlled 7. Moderate AI 8. Severe pulmonary HTN 9. Lactic acidosis, sepsis with UTI. Abx per PCP. Improved 10. Acquired hypothyroidism: recent thyroidectomy. On replacement Recommendations 1. Continue lasix therapy and PRN. xtra dose today 2. Continue metoprolol for rate control. QOD digoxin 3. I discussed with daughter recently her treatment plan and reported that sometimes she does not take her meds unless supervised and poor PO hydration. Discussed better supervision and agrees for potential SNU. 4. Eliquis for stroke prevention at 2.5 mg bid. Will consider for outpt cardioversion 5. Follow up as scheduled Apr 14 at 9:30 AM 6. Smoking cessation GUCCI SCHMITZ MD 03/25/19 1555: CARDIO Progress Notes Assessment Assessment Patient seen and examined. Agree with PROFESSIONAL DEVELOPMENT INSTRUCTOR's assessment and plan. Atrial fibrillation/flutter rate better controlled with metoprolol and digoxin that was added yesterday Acute on chronic systolic heart failure better compensated Continue eliquis for stroke prophylaxis and plan outpatient cardioversion MARLEEN CEBALLOS APRN Mar 25, 2019 10:04 GUCCI SCHMITZ MD Mar 25, 2019 15:55
[2019-03-25 11:02] VITALS: BP 121/57
--- NOTE | 2019-03-25 11:47 | SNU/HH DC ---
DISCHARGE WITH HOME HEALTH DISCHARGE INFORMATION: Final Diagnosis: Problems Medical Problems: (1) Acute renal insufficiency Status: Acute (2) Altered mental status Status: Acute (3) CHF exacerbation Status: Acute (4) Elevated INR Status: Acute (5) Septic shock Status: Acute (6) UTI (urinary tract infection) Status: Acute Condition on Discharge: Stable CODE STATUS: Code Status: Full HOME HEALTH: Face to Face: I certify this patient is under my care and that I, or a nurse practitioner or physician's retail sales assistant working with me, had a face to face encounter that meets the physician face to face encounter requirements with this patient on []. Medical Complications: CHF RN For Eval/Treatment: Yes Physical Therapy For: Evalulation/Treatment Occupational Therapy For: Evaluation/Treatment Speech Language Pathology For: Evaluation/Treatment Home Health Aide For: Self-care FIBERGLASS DOWEL DRAWING OPERATOR For: Community Resources Pt Meets Homebound Status: Poor coordination w/ amb. POST DISCHARGE ORDERS: Activity Instructions for Disc: Activity as tolerated Weight Bearing Status after Di: As tolerated DIET AFTER DISCHARGE: Cardiac Wound/Incision Care: Ice to area for comfort, May get incision wet CHECKS AFTER DISCHARGE: Checks after discharge: Check blood press - daily, Check your Temp as needed TREATMENT/EQUIPMENT ORDERS: Adaptive Equipment Issued: None Discharge Respiratory Equipmen: Oxygen CERTIFICATION STATEMENT: Certification Statement: Certification Statement: Based on the above finding, I certify that this patient is confined to the home and needs intermittent mcfp care, physical therapy and/or speech therapy, or continues to need occupational therapy.~ This patient is under my care, and I have initiated the establishment of the plan of care.~ This patient will be followed by myself or a community physician who will periodically review the plan of care. Home Meds Active Scripts Levothyroxine Sodium (SYNTHROID) 25 Mcg Tablet, 25 MCG PO DAILY06 for hypothroidism, #30 TAB 0 Refills Prov:NICKEL,CANDACE L COMPUTER SYSTEMS TECHNICIAN 03/04/19 Hydrocodone Bit/Acetaminophen (HYDROCODONE-APAP 5-325 ) 1 Tab Tablet, 1 TAB PO PRN Q4HRS PRN for MILD PAIN 1-3, #30 TAB 0 Refills Prov:NICKEL,CANDACE L COMPUTER SYSTEMS TECHNICIAN 03/04/19 Albuterol Sulfate (PROAIR HFA INHALER) 8.5 Gm Hfa.aer.ad, 2 PUFF IH PRN Q4-6HRS PRN for wheezing for 21 Days, #1 INHALER 0 Refills Prov:SANJUANITA PEÑA MD 02/14/19 Furosemide (LASIX) 40 Mg Tablet, 1 TAB PO DAILY for chf for 30 Days, #30 TAB 0 Refills Prov:SANJUANITA PEÑA MD 02/14/19 Metoprolol Tartrate (METOPROLOL TARTRATE) 25 Mg Tablet, 25 MG PO BID for htn, hyperthyroid, #60 TAB Prov:SANJUANITA PEÑA MD 02/13/19 Apixaban (ELIQUIS) 5 Mg Tablet, 5 MG PO BID for a fib, #60 TAB Hold 2-3 days prior to thyoroid sx Prov:SANJUANITA PEÑA MD 02/13/19 [Nicotine 21MG] 1 PATCH PATCH No Conflict Check, 1 PATCH TD PRN DAILY PRN for SMOKING CESSATION MDD 1, #14 Prov:SANJUANITA PEÑA MD 07/25/18 Albuterol Sulfate (VENTOLIN HFA INHALER) 18 Gm Hfa.aer.ad, 2 PUFF INH Q4HRS for FOR ASTHMA, #1 INHALER 0 Refills Prov:PRO LLOYD APRN 06/14/18 Benzonatate (TESSALON PERLE) 100 Mg Capsule, 1 CAP PO TID, #30 CAP Prov:PRO LLOYD APRN 06/14/18 Fluticasone Propionate (Flonase Allergy Relief) 9.9 Ml [place].susp, 2 SPRAYS NS DAILY, #1 BOTTLE Prov:PRO LLOYD APRN 06/14/18 Reported Medications Diclofenac Sodium (VOLTAREN) 100 Gm Gel..gram., 1 GM TP QID for PAIN, #100 GM 2 Refills 07/24/18 Gabapentin (GABAPENTIN) 600 Mg Tablet, 600 MG PO DAILY for NEUROGENIC PAIN, TAB 07/24/18 Cyclobenzaprine Hcl (CYCLOBENZAPRINE HCL) 10 Mg Tablet, 1 TAB PO PRN TID PRN for MUSCLE SPASMS, #90 TAB 07/24/18 MARCO WILBURN III DO Mar 25, 2019 11:47
[2019-03-25 12:19] LABS: CALCIUM 8.5 mg/dL (8.5-10.1); CREATININE 1.2 mg/dL (0.6-1.0); GFR 54.9; POTASSIUM 4.9 mmol/L (3.5-5.1)
--- NOTE | 2019-03-25 12:52 | NUR ---
LANDRY notified by RN, pt will need a SNU eval. Chart reviewed. Pt lives at home with family. LANDRY spoke with pt and pt's daughter, Hallie, phone: [phone] in pt's room x2. At first pt was declining SNU and was agreeable with [facility]. Pt and daughter also had met with nurse navigator from [facility]. SW was then notified that pt has agreed with SNU. SW met with pt and daughter again and went over SNU options. Family chose [facility] . Pt and family notified of medicare coverage for SNU. LANDRY phoned and faxed referral to [facility], phone: [phone], fax: [phone]. Pt acceptance pending. LANDRY will continue to follow.
[2019-03-25 15:00] VITALS: BP 112/63
[2019-03-25] MEDS ORDERED: FUROSEMIDE 40 MG TABLET. PO ONE (15:00)
--- NOTE | 2019-03-25 15:54 | NUR ---
SW following pt. Leanne had met with pt and pt's daughter to discuss about nonm Addendum: 03/25/19 at 1557 by ARCHANA GARCIA SW disregard
--- NOTE | 2019-03-25 15:57 | NUR ---
SW following pt. Leanne from [facility] had met with pt and pt's daughter to discuss about non-smoking policy, pt agreeable. Pt has been accepted pending auth. Insurance auth for SNU pending. SW will continue to follow.
[2019-03-25 19:00] VITALS: BP 118/59
[2019-03-25 23:00] VITALS: BP 123/66
[2019-03-26 03:00] VITALS: BP 107/60
[2019-03-26] MEDS ORDERED: ALBUTEROL SULFATE 2.5 MG/3 ML NEBU. NEB ONE (05:15)
[2019-03-26] MEDS: IPRATRPIUM/ALBUTEROL 0.5/2.5MG 3 ML NEBU. NEB SCH ×4 (05:35→21:13)
[2019-03-26] MEDS: LEVOTHYROXINE 25 MCG TABLET. PO SCH (05:48)
[2019-03-26 05:49] LABS: BASO # 0.1 x10^3/uL (0.0-0.2); BASO % 1 % (0-3); EOS # 0.1 x10^3/uL (0.0-0.7); EOS % 1 % (0-3); HEMATOCRIT 42.2 % (36.0-47.0); HEMOGLOBIN 13.7 g/dL (12.0-15.5); LYMPH # 1.9 x10^3/uL (1.0-4.8); LYMPH % 27 % (24-48); MEAN CORPUSCULAR HEMOGLOBIN 31 pg (25-35); MEAN CORPUSCULAR HGB CONC 33 g/dL (31-37); MEAN CORPUSCULAR VOLUME 94 fL (79-100); MONO # 0.7 x10^3/uL (0.0-1.1); MONO % 10 % (0-9); NEUT # 4.3 x10^3/uL (1.8-7.7); NEUT % 61 % (31-73); PLATELET COUNT 143 x10^3/uL (140-400); RED BLOOD COUNT 4.47 x10^6/uL (3.50-5.40)
[2019-03-26 06:05] LABS: PROTHROMBIN TIME PATIENT 13.5 SEC (11.7-14.0)
[2019-03-26 06:11] LABS: ALBUMIN 2.5 g/dL (3.4-5.0); ALBUMIN/GLOBULIN RATIO 0.5 (1.0-1.7); CALCIUM 8.5 mg/dL (8.5-10.1); CREATININE 1.3 mg/dL (0.6-1.0); GFR 50.1; POTASSIUM 4.6 mmol/L (3.5-5.1); TOTAL BILIRUBIN 0.4 mg/dL (0.2-1.0); TOTAL PROTEIN 7.2 g/dL (6.4-8.2)
[2019-03-26 07:00] VITALS: BP 155/75
--- NOTE | 2019-03-26 08:21 | RAD ---
EXAM: CHEST ONE VIEW. HISTORY: Hemoptysis. COMPARISON: 03/23/2019. FINDINGS: A frontal view of the chest is obtained. There are small bilateral pleural effusions. Perihilar and basilar infiltrates are consistent with [id number] pulmonary edema. There is slightly increased in the right upper lobe. There is no pneumothorax. The heart is moderately enlarged. IMPRESSION: 1. Mrqs-[id number] pulmonary edema is slightly increased. Small bilateral pleural effusions. Moderate cardiomegaly. Electronically signed by: Barrie Gilbert MD (03/26/2019 8:18 AM) [facility]
[2019-03-26] MEDS: BENZONATATE 100 MG CAPSULE. PO SCH ×3 (09:07→20:45)
[2019-03-26] MEDS: NICOTINE 21MG PATCH. TD PRN (09:07)
[2019-03-26] MEDS: GABAPENTIN 300 MG CAPSULE. PO SCH (09:07)
[2019-03-26] MEDS: DIGOXIN 125 MCG TABLET. PO SCH (09:08)
[2019-03-26] MEDS: FUROSEMIDE 40 MG TABLET. PO SCH (09:09)
[2019-03-26] MEDS: AZTREONAM IV Push 1 GM VIAL. IVP SCH ×2 (09:11→20:50)
[2019-03-26] MEDS: DICLOFENAC SODIUM 1% TOPICAL GEL 100GM TUBE. TP SCH ×4 (09:12→20:55)
[2019-03-26] MEDS: FLUTICASONE 50MCG/NASAL SPRAY 16GM BOTTLE. NS SCH (09:13)
--- NOTE | 2019-03-26 09:15 | NUR ---
Insurance has approved SNU. Pt, Pt's daughter and Physician notified. Will await for orders. SW had discussed with pt's daughter regarding insurance coverage for SNU again extensively as they are worried pt will have financial responsibility.
[2019-03-26 10:04] VITALS: BP 155/78
--- NOTE | 2019-03-26 10:38 | SNU/HH DC ---
DISCHARGE ORDERS DISCHARGE INFORMATION: FINAL DIAGNOSIS Problems Medical Problems: (1) Acute renal insufficiency Status: Acute (2) Altered mental status Status: Acute (3) CHF exacerbation Status: Acute (4) Elevated INR Status: Acute (5) Septic shock Status: Acute (6) UTI (urinary tract infection) Status: Acute CONDITION ON DISCHARGE: Stable CODE STATUS: Code Status: Full [facility]: SNF STAY <30 DAYS: Yes HOSPICE: HOSPICE: No HOSPICE EVAL & TREAT: No LTAC: ADMIT TO LTAC: No POST DISCHARGE ORDERS: ACTIVITY ORDERS: Activity as tolerated WEIGHT BEARING STATUS: As tolerated DIET AFTER DISCHARGE: Cardiac WOUND/INCISION CARE: Ice to area for comfort, May get incision wet CHECKS AFTER DISCHARGE: CHECKS AFTER DISCHARGE: Check blood press - daily, Check your Temp as needed TREATMENT/EQUIPMENT ORDERS: ADAPTIVE EQUIPMENT NEEDED: None RESPIRATORY EQUIPMENT NEEDED: Oxygen Physical Therapy For: Evalulation/Treatment Occupational Therapy For: Evaluation/Treatment Speech Language Pathology For: Evaluation/Treatment DISCHARGE MEDICATIONS: Home Meds Active Scripts Levothyroxine Sodium (SYNTHROID) 25 Mcg Tablet, 25 MCG PO DAILY06 for hypothroidism, #30 TAB 0 Refills Prov:CANDACE MENDES CHEMICAL ANALYTICAL SAMPLER 03/04/19 Hydrocodone Bit/Acetaminophen (HYDROCODONE-APAP 5-325 ) 1 Tab Tablet, 1 TAB PO PRN Q4HRS PRN for MILD PAIN 1-3, #30 TAB 0 Refills Prov:CANDACE MENDES CHEMICAL ANALYTICAL SAMPLER 03/04/19 Albuterol Sulfate (PROAIR HFA INHALER) 8.5 Gm Hfa.aer.ad, 2 PUFF IH PRN Q4-6HRS PRN for wheezing for 21 Days, #1 INHALER 0 Refills Prov:SANJUANITA PEÑA MD 02/14/19 Furosemide (LASIX) 40 Mg Tablet, 1 TAB PO DAILY for chf for 30 Days, #30 TAB 0 Refills Prov:SANJUANITA PEÑA MD 02/14/19 Metoprolol Tartrate (METOPROLOL TARTRATE) 25 Mg Tablet, 25 MG PO BID for htn, hyperthyroid, #60 TAB Prov:SANJUANITA PEÑA MD 02/13/19 Apixaban (ELIQUIS) 5 Mg Tablet, 5 MG PO BID for a fib, #60 TAB Hold 2-3 days prior to thyoroid sx Prov:SANJUANITA PEÑA MD 02/13/19 [Nicotine 21MG] 1 PATCH PATCH No Conflict Check, 1 PATCH TD PRN DAILY PRN for SMOKING CESSATION MDD 1, #14 Prov:SANJUANITA PEÑA MD 07/25/18 Albuterol Sulfate (VENTOLIN HFA INHALER) 18 Gm Hfa.aer.ad, 2 PUFF INH Q4HRS for FOR ASTHMA, #1 INHALER 0 Refills Prov:PRO LLOYD APRN 06/14/18 Benzonatate (TESSALON PERLE) 100 Mg Capsule, 1 CAP PO TID, #30 CAP Prov:PRO LLOYD APRN 06/14/18 Fluticasone Propionate (Flonase Allergy Relief) 9.9 Ml [place].susp, 2 SPRAYS NS DAILY, #1 BOTTLE Prov:PRO LLOYD APRN 06/14/18 Reported Medications Diclofenac Sodium (VOLTAREN) 100 Gm Gel..gram., 1 GM TP QID for PAIN, #100 GM 2 Refills 07/24/18 Gabapentin (GABAPENTIN) 600 Mg Tablet, 600 MG PO DAILY for NEUROGENIC PAIN, TAB 07/24/18 Cyclobenzaprine Hcl (CYCLOBENZAPRINE HCL) 10 Mg Tablet, 1 TAB PO PRN TID PRN for MUSCLE SPASMS, #90 TAB 07/24/18 MARCO WILBURN III DO Mar 26, 2019 10:38
--- NOTE | 2019-03-26 10:52 | NUR ---
Spoke with RN and pt will need to be seen by Pulmonary first due to change in condition. Updated [place] at [facility] and faxed Orders. SW will continue to follow.
[2019-03-26] MEDS ORDERED: FUROSEMIDE 40 MG/4 ML VIAL. IVP ONE (11:00)
--- NOTE | 2019-03-26 11:14 | CONS ---
DATE OF CONSULTATION: PULMONARY CONSULTATION ATTENDING PHYSICIAN: Obey Nichole DO. REASON FOR CONSULTATION: Hypoxia. HISTORY OF PRESENT ILLNESS: The patient is a 63-year-old who has history of congestive heart failure, history of cardiomyopathy, atrial flutter, she is status post thyroidectomy. Two weeks ago, she presented to the hospital with altered mental status. Currently, she is alert, oriented x 4. I have been asked to see her for evaluation of abnormal chest x-ray and hypoxia. I have reviewed the patient's chest x-ray and it is consistent with congestive heart failure and also small pleural effusions. The patient's ejection fraction was 40%-45%. She smoked for about 35 years before quitting. She is not on home oxygen. No history of deep vein thrombosis or pulmonary embolism. No fever, no significant chest pain. No headache. No nausea, vomiting or diarrhea. PAST MEDICAL HISTORY: Significant for history of hypertension, hypothyroidism, history of cardiomyopathy with an EF of 40%. PAST SURGICAL HISTORY: D and C and thyroidectomy. ALLERGIES: PENICILLIN. MEDICATIONS: Reviewed as listed in the MRAD including antibiotics and Eliquis. REVIEW OF SYSTEMS: Twelve-point system obtained. Pertinent positives discussed in my history of present illness, otherwise noncontributory. All systems that were negative were reviewed as well. SOCIAL HISTORY: Smoked for about 35 years before quitting. PHYSICAL EXAMINATION: VITAL SIGNS: Reviewed. Blood pressure on the high side 155/78, afebrile, pulse ox 98% on 2 liters. NECK: Supple. LUNGS: With crackles at the bases. CARDIOVASCULAR: With a regular rate. ABDOMEN: Soft, nontender. EXTREMITIES: With no pitting edema. LABORATORY DATA: Reviewed. White cell count 7.0, hemoglobin 13.7, and platelets are 143. BUN is 46 and a creatinine of 1.3. IMPRESSION: 1. Acute hypoxic respiratory failure secondary to acute on chronic systolic heart failure. 2. Underlying chronic obstructive pulmonary disease, clinically compensated. 3. Prerenal azotemia. 4. Moderate protein-calorie malnutrition. 5. Clinically, less likely pneumonia. 6. Status post thyroidectomy few weeks ago. 7. History of atrial flutter, currently on anticoagulation with Eliquis. RECOMMENDATIONS: 1. Discussed with RN. Continue present oxygen. 2. We will need extra IV Lasix and follow chest x-ray to see an improvement radiographically. 3. Continue DuoNebs. 4. Antibiotics per PCP. 5. Discussed with RN. We will follow along with you. AMARA MENG MD DR: EZRA/carlie JOB#: [id number] / [id number]
[2019-03-26] MEDS: APIXABAN 2.5 MG TABLET. PO SCH ×2 (13:25→20:45)
[2019-03-26] MEDS: METOPROLOL TART IMMED RELEASE 25 MG TABLET. PO SCH ×2 (13:25→20:45)
[2019-03-26] MEDS: LACTOBACILLUS RHAMNOSUS GG 1 CAPSULE. PO SCH ×2 (13:25→20:45)
--- NOTE | 2019-03-26 14:11 | PDOC ---
CARDIO Progress Notes Date and Time Date of Service 03/26/2019 Time of Evaluation 1220 Subjective Subjective: No Chest Pain, No shortness of breath, No Palpitations, Other (still has cough) Vitals Vitals Vital Signs Date Time Temp Pulse Resp B/P (MAP) Pulse Ox O2 Delivery O2 Flow Rate FiO2 03/26/19 13:25 93 155/78 03/26/19 13:16 98 Nasal Cannula 2.0 03/26/19 10:04 98.3 20 98.3 Weight Weight [ ] Input and Output Intake and Output Intake and Output 03/26/19 07:00 Intake Total 880 ml Output Total 491 ml Balance 389 ml Intake Oral 880 ml Output Urine Total 490 ml Stool Total 1 ml # Voids 2 # Bowel Movements 3 Laboratory Labs Laboratory Tests Test 03/26/19 05:30 03/26/19 07:42 White Blood Count 7.0 x10^3/uL (4.0-11.0) Red Blood Count 4.47 x10^6/uL (3.50-5.40) Hemoglobin 13.7 g/dL (12.0-15.5) Hematocrit 42.2 % (36.0-47.0) Mean Corpuscular Volume 94 fL (79-100) Mean Corpuscular Hemoglobin 31 pg (25-35) Mean Corpuscular Hemoglobin Concent 33 g/dL (31-37) Red Cell Distribution Width 19.0 % (11.5-14.5) Platelet Count 143 x10^3/uL (140-400) Neutrophils (%) (Auto) 61 % (31-73) Lymphocytes (%) (Auto) 27 % (24-48) Monocytes (%) (Auto) 10 % (0-9) Eosinophils (%) (Auto) 1 % (0-3) Basophils (%) (Auto) 1 % (0-3) Neutrophils # (Auto) 4.3 x10^3/uL (1.8-7.7) Lymphocytes # (Auto) 1.9 x10^3/uL (1.0-4.8) Monocytes # (Auto) 0.7 x10^3/uL (0.0-1.1) Eosinophils # (Auto) 0.1 x10^3/uL (0.0-0.7) Basophils # (Auto) 0.1 x10^3/uL (0.0-0.2) Prothrombin Time 13.5 SEC (11.7-14.0) Prothromb Time International Ratio 1.1 (0.8-1.1) Sodium Level 132 mmol/L (136-145) Potassium Level 4.6 mmol/L (3.5-5.1) Chloride Level 95 mmol/L (98-107) Carbon Dioxide Level 32 mmol/L (21-32) Anion Gap 5 (6-14) Blood Urea Nitrogen 46 mg/dL (7-20) Creatinine 1.3 mg/dL (0.6-1.0) Estimated GFR (Cockcroft-Gault) 50.1 BUN/Creatinine Ratio 35 (6-20) Glucose Level 195 mg/dL (70-99) Calcium Level 8.5 mg/dL (8.5-10.1) Total Bilirubin 0.4 mg/dL (0.2-1.0) Aspartate Amino Transf (AST/SGOT) 33 U/L (15-37) Alanine Aminotransferase (ALT/SGPT) 16 U/L (14-59) Alkaline Phosphatase 100 U/L (46-116) Total Protein 7.2 g/dL (6.4-8.2) Albumin 2.5 g/dL (3.4-5.0) Albumin/Globulin Ratio 0.5 (1.0-1.7) Glucose (Fingerstick) 82 mg/dL (70-99) Microbiology Micro Microbiology 03/20/19 Blood Culture - Final, Complete NO GROWTH AFTER 5 DAYS 03/20/19 Urine Culture - Final, Complete 03/20/19 Urine Culture Result 1 (SUMMER) - Final, Complete 03/20/19 Antimicrobic Susceptibility - Final, Complete Physical Exam HEENT: Neck Supple W Full Motion Chest: Symmetric LUNGS: Other (basilar crackles) Heart: irregularly irregular (atrial flutter) Abdomen: Soft N/T Extremities: Other (trace bilateral LE edema ) Neurology: alert, oriented, follow commands Assessment Assessment 1. Presumed NICM; LVEF 40-45% with previous hyperthyroidism and AFIB RVRs 2. Acute on chronic systolic CHF: not SOA but repeat CXR increasing infiltrates 3. NEGRITO on CKD: prerenal 4. Persistent AFIB: rate controlled 5. Coagulopathy: INR 5.5 unclear etiology possibly from contributing hypoperfusion, significant NEGRITO, sepsis were all part of the differential with associated use of eliquis. Better at 1.3 6. Hypertension: controlled 7. Moderate AI 8. Severe pulmonary HTN 9. Lactic acidosis, sepsis with UTI. Abx per PCP. Improved 10. Acquired hypothyroidism: recent thyroidectomy. On replacement Recommendations 1. Infiltrates developing despite xtra lasix from yesterday. Lasix IV x1 received today. Will transition to Bumex tomorrow IV then PO for better bioavailability 2. Continue metoprolol for rate control. QOD digoxin. Amlodipine x1. Will further increase metoprolol tomorrow if BP remains elevated. SBP goal 120s 3. SNU soon 4. Eliquis for stroke prevention at 2.5 mg bid. Will consider for outpt cardioversion 5. Follow up as scheduled Apr 14 at 9:30 AM 6. Smoking cessation MARLEEN CEBALLOS APRN Mar 26, 2019 14:11
[2019-03-26] MEDS ORDERED: amLODIPine BESYLATE 5 MG TABLET PO ONE (14:15)
[2019-03-26 14:28] VITALS: BP 120/68
[2019-03-26 18:59] VITALS: BP 115/66
[2019-03-26 22:05] VITALS: BP 107/57
[2019-03-27 03:12] VITALS: BP 101/61
[2019-03-27] MEDS: LEVOTHYROXINE 25 MCG TABLET. PO SCH (06:23)
[2019-03-27 07:00] VITALS: BP 101/63
[2019-03-27] MEDS: IPRATRPIUM/ALBUTEROL 0.5/2.5MG 3 ML NEBU. NEB SCH ×5 (07:59→20:06)
[2019-03-27] MEDS: BENZONATATE 100 MG CAPSULE. PO SCH ×3 (08:08→20:56)
[2019-03-27] MEDS: LACTOBACILLUS RHAMNOSUS GG 1 CAPSULE. PO SCH ×2 (08:08→20:56)
[2019-03-27] MEDS: FLUTICASONE 50MCG/NASAL SPRAY 16GM BOTTLE. NS SCH (08:08)
[2019-03-27] MEDS: AZTREONAM IV Push 1 GM VIAL. IVP SCH (08:08)
[2019-03-27] MEDS: APIXABAN 2.5 MG TABLET. PO SCH ×2 (08:08→20:56)
[2019-03-27] MEDS: BUMETANIDE 2.5 MG/10 ML VIAL. IV SCH (08:08)
[2019-03-27] MEDS: DICLOFENAC SODIUM 1% TOPICAL GEL 100GM TUBE. TP SCH ×4 (08:08→20:56)
[2019-03-27] MEDS: METOPROLOL TART IMMED RELEASE 25 MG TABLET. PO SCH ×2 (08:09→20:55)
[2019-03-27] MEDS: GABAPENTIN 300 MG CAPSULE. PO SCH (08:09)
--- NOTE | 2019-03-27 08:25 | PDOC ---
PULMONARY PROGRESS NOTES Subjective PT. remains on N/C feeling much better today after lasix Denies SOB or increased cough Vitals Vital Signs Date Time Temp Pulse Resp B/P (MAP) Pulse Ox O2 Delivery O2 Flow Rate FiO2 03/27/19 08:09 97 101/63 03/27/19 08:01 100 Nasal Cannula 2.0 03/27/19 07:00 97.4 18 97.4 ROS: No Nausea, No Chest Pain, No Abdominal Pain, No Increase Cough General: Alert Lungs: Clear Cardiovascular: S1 Abdomen: Soft, Non-tender Neuro Exam: Alert Extremities: No Edema Skin: Dry, Cool Labs Laboratory Tests Test 03/25/19 11:58 03/26/19 05:30 03/26/19 07:42 Sodium Level 139 mmol/L (136-145) 132 mmol/L (136-145) Potassium Level 4.9 mmol/L (3.5-5.1) 4.6 mmol/L (3.5-5.1) Chloride Level 100 mmol/L (98-107) 95 mmol/L (98-107) Carbon Dioxide Level 39 mmol/L (21-32) 32 mmol/L (21-32) Anion Gap 0 (6-14) 5 (6-14) Blood Urea Nitrogen 42 mg/dL (7-20) 46 mg/dL (7-20) Creatinine 1.2 mg/dL (0.6-1.0) 1.3 mg/dL (0.6-1.0) Estimated GFR (Cockcroft-Gault) 54.9 50.1 Glucose Level 79 mg/dL (70-99) 195 mg/dL (70-99) Calcium Level 8.5 mg/dL (8.5-10.1) 8.5 mg/dL (8.5-10.1) White Blood Count 7.0 x10^3/uL (4.0-11.0) Red Blood Count 4.47 x10^6/uL (3.50-5.40) Hemoglobin 13.7 g/dL (12.0-15.5) Hematocrit 42.2 % (36.0-47.0) Mean Corpuscular Volume 94 fL (79-100) Mean Corpuscular Hemoglobin 31 pg (25-35) Mean Corpuscular Hemoglobin Concent 33 g/dL (31-37) Red Cell Distribution Width 19.0 % (11.5-14.5) Platelet Count 143 x10^3/uL (140-400) Neutrophils (%) (Auto) 61 % (31-73) Lymphocytes (%) (Auto) 27 % (24-48) Monocytes (%) (Auto) 10 % (0-9) Eosinophils (%) (Auto) 1 % (0-3) Basophils (%) (Auto) 1 % (0-3) Neutrophils # (Auto) 4.3 x10^3/uL (1.8-7.7) Lymphocytes # (Auto) 1.9 x10^3/uL (1.0-4.8) Monocytes # (Auto) 0.7 x10^3/uL (0.0-1.1) Eosinophils # (Auto) 0.1 x10^3/uL (0.0-0.7) Basophils # (Auto) 0.1 x10^3/uL (0.0-0.2) Prothrombin Time 13.5 SEC (11.7-14.0) Prothromb Time International Ratio 1.1 (0.8-1.1) BUN/Creatinine Ratio 35 (6-20) Total Bilirubin 0.4 mg/dL (0.2-1.0) Aspartate Amino Transf (AST/SGOT) 33 U/L (15-37) Alanine Aminotransferase (ALT/SGPT) 16 U/L (14-59) Alkaline Phosphatase 100 U/L (46-116) Total Protein 7.2 g/dL (6.4-8.2) Albumin 2.5 g/dL (3.4-5.0) Albumin/Globulin Ratio 0.5 (1.0-1.7) Glucose (Fingerstick) 82 mg/dL (70-99) Medications Active Scripts Medications Dose Route/Sig Max Daily Dose Days Date Category Dose Instructions Synthroid (Levothyroxine Sodium) 25 Mcg Tablet 25 Mcg PO DAILY06 03/04/19 Rx Hydrocodone-Apap 5-325 (Hydrocodone Bit/Acetaminophen) 1 Tab Tablet 1 Tab PO PRN Q4HRS PRN 03/04/19 Rx Proair Hfa Inhaler (Albuterol Sulfate) 8.5 Gm Hfa.aer.ad 2 Puff IH PRN Q4-6HRS PRN 21 02/14/19 Rx Lasix (Furosemide) 40 Mg Tablet 1 Tab PO DAILY 30 02/14/19 Rx Metoprolol Tartrate 25 Mg Tablet 25 Mg PO BID 02/13/19 Rx Eliquis (Apixaban) 5 Mg Tablet 5 Mg PO BID 02/13/19 Rx Hold 2-3 days prior to thyoroid sx [Nicotine 21MG] 1 PATCH Patch 1 Patch TD PRN DAILY PRN MDD 1 07/25/18 Rx Voltaren (Diclofenac Sodium) 100 Gm Gel..gram. 1 Gm TP QID 07/24/18 Reported Gabapentin 600 Mg Tablet 600 Mg PO DAILY 07/24/18 Reported Cyclobenzaprine Hcl 10 Mg Tablet 1 Tab PO PRN TID PRN 07/24/18 Reported Ventolin Hfa Inhaler (Albuterol Sulfate) 18 Gm Hfa.aer.ad 2 Puff INH Q4HRS 06/14/18 Rx Tessalon Perle (Benzonatate) 100 Mg Capsule 1 Cap PO TID 06/14/18 Rx Flonase Allergy Relief (Fluticasone Propionate) 9.9 Ml [place].susp 2 Sprays NS DAILY 06/14/18 Rx Impression . IMPRESSION: 1. Acute hypoxic respiratory failure secondary to acute on chronic systolic heart failure. 2. Underlying chronic obstructive pulmonary disease, clinically compensated. 3. Prerenal azotemia. 4. Moderate protein-calorie malnutrition. 5. Clinically, less likely pneumonia. 6. Status post thyroidectomy few weeks ago. 7. History of atrial flutter, currently on anticoagulation with Eliquis. CXR 03/26/19 IMPRESSION: 1. Ihss-ki-ptnmggmi pulmonary edema is slightly increased. Small bilateral pleural effusions. Moderate cardiomegaly. Plan . RECOMMENDATIONS: 1. Continue present oxygen. 2. IV Lasix 03/26/19 and follow chest x-ray to see an improvement radiographically. 3. Continue DuoNebs. 4. Antibiotics per PCP currently on aztreonam 5. Follow cardiology recs 6. Discussed with RN and daughter AMARA MENG MD Mar 27, 2019 08:25
[2019-03-27] MEDS: ANTI-COAG MONITOR BY PHARMACY. MC PRN (08:32)
[2019-03-27 11:00] VITALS: BP 112/59
--- NOTE | 2019-03-27 12:04 | PDOC ---
PROGRESS NOTES Chief Complaint Chief Complaint Recent total thyroidectomy for hot nodue and hyperthyroidism with Afib RVR - now on synthroid post total thyrodiectomy GEn weakness- HCR agreeable (was HH on dc ) CHF, diastolic- on bumex now 1 gm IV qD per cards NEGRITO sec to lasix 40 PO at home History of Present Illness History of Present Illness known to me, recent thyroidectomy for hot nodule with a fib RVR She and family was adamant before to do just HH NOW back in diastolic CHF on lasix 40 PO at home and now on bumex 1 gm qDaily IV per cards Agreeable to HCR on friday hopefully NO leg swelling, no inc in soa PLAN: IV bumex 1 gm IV daily per cards Monitor lytes PT ot while here over weekend HCR likely friday COnt PO synthroid -s./p thyoidectomy Vitals Vitals Vital Signs Date Time Temp Pulse Resp B/P (MAP) Pulse Ox O2 Delivery O2 Flow Rate FiO2 03/27/19 11:34 98 Nasal Cannula 2.0 03/27/19 08:09 97 101/63 03/27/19 07:00 97.4 18 97.4 Physical Exam General: Alert, Oriented X3, Cooperative, No acute distress, Other (extremely weak and barely talk) Heart: Regular rate, Normal S1, Normal S2, No murmurs, Other (heart rate is irregular) Lungs: Clear Abdomen: Normal bowel sounds, Soft, No tenderness Extremities: No clubbing, No cyanosis, No edema Skin: No rashes, No breakdown, No significant lesion Review of Systems Review of Systems neg 14 pt reviewed with her Assessment and Plan Assessmemt and Plan Problems Medical Problems: (1) Acute renal insufficiency Status: Acute (2) Altered mental status Status: Acute (3) CHF exacerbation Status: Acute (4) Elevated INR Status: Acute (5) Septic shock Status: Acute (6) UTI (urinary tract infection) Status: Acute Comment Review of Relevant I have reviewed the following items suad (where applicable) has been applied. Labs Laboratory Tests Test 03/26/19 05:30 03/26/19 07:42 White Blood Count 7.0 x10^3/uL (4.0-11.0) Red Blood Count 4.47 x10^6/uL (3.50-5.40) Hemoglobin 13.7 g/dL (12.0-15.5) Hematocrit 42.2 % (36.0-47.0) Mean Corpuscular Volume 94 fL (79-100) Mean Corpuscular Hemoglobin 31 pg (25-35) Mean Corpuscular Hemoglobin Concent 33 g/dL (31-37) Red Cell Distribution Width 19.0 % (11.5-14.5) Platelet Count 143 x10^3/uL (140-400) Neutrophils (%) (Auto) 61 % (31-73) Lymphocytes (%) (Auto) 27 % (24-48) Monocytes (%) (Auto) 10 % (0-9) Eosinophils (%) (Auto) 1 % (0-3) Basophils (%) (Auto) 1 % (0-3) Neutrophils # (Auto) 4.3 x10^3/uL (1.8-7.7) Lymphocytes # (Auto) 1.9 x10^3/uL (1.0-4.8) Monocytes # (Auto) 0.7 x10^3/uL (0.0-1.1) Eosinophils # (Auto) 0.1 x10^3/uL (0.0-0.7) Basophils # (Auto) 0.1 x10^3/uL (0.0-0.2) Prothrombin Time 13.5 SEC (11.7-14.0) Prothromb Time International Ratio 1.1 (0.8-1.1) Sodium Level 132 mmol/L (136-145) Potassium Level 4.6 mmol/L (3.5-5.1) Chloride Level 95 mmol/L (98-107) Carbon Dioxide Level 32 mmol/L (21-32) Anion Gap 5 (6-14) Blood Urea Nitrogen 46 mg/dL (7-20) Creatinine 1.3 mg/dL (0.6-1.0) Estimated GFR (Cockcroft-Gault) 50.1 BUN/Creatinine Ratio 35 (6-20) Glucose Level 195 mg/dL (70-99) Calcium Level 8.5 mg/dL (8.5-10.1) Total Bilirubin 0.4 mg/dL (0.2-1.0) Aspartate Amino Transf (AST/SGOT) 33 U/L (15-37) Alanine Aminotransferase (ALT/SGPT) 16 U/L (14-59) Alkaline Phosphatase 100 U/L (46-116) Total Protein 7.2 g/dL (6.4-8.2) Albumin 2.5 g/dL (3.4-5.0) Albumin/Globulin Ratio 0.5 (1.0-1.7) Glucose (Fingerstick) 82 mg/dL (70-99) Microbiology 03/20/19 Blood Culture - Final, Complete NO GROWTH AFTER 5 DAYS 03/20/19 Urine Culture - Final, Complete 03/20/19 Urine Culture Result 1 (SUMMER) - Final, Complete 03/20/19 Antimicrobic Susceptibility - Final, Complete Medications Current Medications Bumetanide (Bumex) 0.5 mg 1X ONCE IV Last administered on 03/20/19at 01:56; Start 03/20/19 at 02:00; Stop 03/20/19 at 02:01; Status DC Ondansetron HCl (Zofran) 4 mg PRN Q8HRS PRN IV NAUSEA/VOMITING; Start 03/20/19 at 01:45; Stop 03/21/19 at 01:44; Status DC Sodium Chloride 1,000 ml @ 1,000 mls/hr 1X ONCE IV Last administered on 03/20/19at 03:00; Start 03/20/19 at 03:00; Stop 03/20/19 at 03:59; Status DC Sodium Chloride 500 ml @ 500 mls/hr 1X ONCE IV Last administered on 03/20/19at 03:01; Start 03/20/19 at 03:00; Stop 03/20/19 at 03:59; Status DC Ceftriaxone Sodium (Rocephin) 1 gm 1X ONCE IVP ; Start 03/20/19 at 02:45; Stop 03/20/19 at 02:51; Status DC Vancomycin HCl 1.25 gm/Sodium Chloride 500 ml @ 250 mls/hr 1X ONCE IV Last administered on 03/20/19at 03:04; Start 03/20/19 at 03:00; Stop 03/20/19 at 04:59; Status DC Aztreonam (Azactam) 2 gm 1X ONCE IVP Last administered on 03/20/19at 03:03; Start 03/20/19 at 03:15; Stop 03/20/19 at 03:16; Status DC Pharmacy Consult (C.diff Med Screen By Rx) 1 each 1X ONCE [facility] ; Start 03/20/19 at 04:00; Stop 03/20/19 at 04:05; Status DC Influenza Virus Vaccine Quadrival (Afluria Quad 2019-20 (3yr Up) Syringe) 0.5 ml ONCE ONCE VAX IM ; Start 03/20/19 at 09:00; Stop 03/20/19 at 09:01; Status UNV Levofloxacin/ Dextrose 50 ml @ 50 mls/hr Q24H IV Last administered on 03/24/19at 12:37; Start 03/20/19 at 12:00; Stop 03/24/19 at 13:23; Status DC Benzonatate (Tessalon Perle) 100 mg TID PO Last administered on 03/27/19 08:08; Start 03/20/19 at 14:00 Cyclobenzaprine HCl (Flexeril) 10 mg PRN TID PRN PO MUSCLE SPASMS; Start 03/20/19 at 13:45 Diclofenac Sodium (Voltaren) 1 donald QID TP Last administered on 03/27/19at 08:08; Start 03/20/19 at 14:00 Furosemide (Lasix) 40 mg DAILY PO Last administered on 03/26/19 09:09; Start 03/20/19 at 14:00; Stop 03/26/19 at 14:08; Status DC Acetaminophen/ Hydrocodone Bitart (Lortab 5/325) 1 tab PRN Q4HRS PRN PO PAIN Last administered on 03/25/19 05:22; Start 03/20/19 at 13:45 Levothyroxine Sodium (Synthroid) 25 mcg DAILY06 PO Last administered on 03/27/19 06:23; Start 03/20/19 at 14:00 Metoprolol Tartrate (Lopressor) 25 mg BID PO Last administered on 03/27/19 08:09; Start 03/20/19 at 14:00 Non-Formulary Medication (Albuterol Sulfate (Ventolin Hfa Inhaler)) 2 puff Q4HRS INH ; Start 03/20/19 at 16:00; Status UNV Fluticasone Propionate (Flonase) 2 spray DAILY NS Last administered on 03/27/19 08:08; Start 03/20/19 at 14:00 Gabapentin (Neurontin) 600 mg DAILY PO Last administered on 03/27/19 08:09; Start 03/20/19 at 14:00 Nicotine (Nicoderm Cq 21mg) 1 patch PRN DAILY PRN TD SMOKING CESSATION Last administered on 03/26/19 09:07; Start 03/20/19 at 14:00 Albuterol/ Ipratropium (Duoneb) 3 ml RTQID NEB Last administered on 03/27/19 11:34; Start 03/20/19 at 16:00 Albuterol Sulfate (Ventolin Neb Soln) 2.5 mg PRN Q4HRS PRN NEB SHORTNESS OF BREATH; Start 03/20/19 at 13:45 Lactobacillus Rhamnosus (Culturelle) 1 cap BID PO Last administered on 03/27/19 08:08; Start 03/20/19 at 21:00 Phytonadione (Mephyton Oral Soln) 1 mg 1X ONCE PO Last administered on 03/20/19at 15:29; Start 03/20/19 at 15:15; Stop 03/20/19 at 15:16; Status DC Furosemide (Lasix) 20 mg 1X ONCE IVP Last administered on 03/21/19 12:53; Start 03/21/19 at 10:15; Stop 03/21/19 at 10:17; Status DC Potassium Chloride (Klor-Con) 80 meq 1X ONCE PO Last administered on 03/21/19 12:53; Start 03/21/19 at 10:15; Stop 03/21/19 at 10:17; Status DC Potassium Chloride (Klor-Con) 40 meq 1X ONCE PO Last administered on 03/22/19at 10:43; Start 03/22/19 at 10:30; Stop 03/22/19 at 10:31; Status DC Digoxin (Lanoxin) 250 mcg 1X ONCE IV Last administered on 03/22/19 10:43; Start 03/22/19 at 10:45; Stop 03/22/19 at 10:46; Status DC Apixaban (Eliquis) 2.5 mg BID PO Last administered on 03/27/19 08:08; Start 03/23/19 at 21:00 Furosemide (Lasix) 40 mg 1X ONCE PO Last administered on 03/23/19at 15:46; Start 03/23/19 at 15:30; Stop 03/23/19 at 15:31; Status DC Info (Anti-Coagulation Monitoring By Pharmacy) 1 each PRN DAILY PRN MC SEE COMMENTS Last administered on 03/27/19at 08:32; Start 03/24/19 at 07:45 Aztreonam (Azactam) 1 gm Q12HR IVP Last administered on 03/27/19 08:08; Start 03/24/19 at 14:00; Stop 03/27/19 at 11:22; Status DC Digoxin (Lanoxin) 500 mcg 1X ONCE IV Last administered on 03/24/19at 14:48; Start 03/24/19 at 15:15; Stop 03/24/19 at 15:16; Status DC Digoxin (Lanoxin) 125 mcg QODAY PO Last administered on 03/26/19at 09:08; Start 03/26/19 at 09:00 Furosemide (Lasix) 40 mg 1X ONCE PO Last administered on 03/25/19at 14:34; Start 03/25/19 at 15:00; Stop 03/25/19 at 15:01; Status DC Albuterol Sulfate (Ventolin Neb Soln) 2.5 mg 1X ONCE NEB ; Start 03/26/19 at 05:15; Stop 03/26/19 at 05:16; Status DC Furosemide (Lasix) 40 mg 1X ONCE IVP Last administered on 03/26/19at 11:11; Start 03/26/19 at 11:00; Stop 03/26/19 at 11:01; Status DC Bumetanide (Bumex) 1 mg DAILY IV Last administered on 03/27/19at 08:08; Start 03/27/19 at 09:00 Amlodipine Besylate (Norvasc) 5 mg 1X ONCE PO Last administered on 03/26/19at 15:52; Start 03/26/19 at 14:15; Stop 03/26/19 at 14:16; Status DC Nitrofurantoin Macrocrystals (Macrobid) 100 mg BID PO ; Start 03/27/19 at 21:00 Active Scripts Active Synthroid (Levothyroxine Sodium) 25 Mcg Tablet 25 Mcg PO DAILY06 Hydrocodone-Apap 5-325 (Hydrocodone Bit/Acetaminophen) 1 Tab Tablet 1 Tab PO PRN Q4HRS PRN Proair Hfa Inhaler (Albuterol Sulfate) 8.5 Gm Hfa.aer.ad 2 Puff IH PRN Q4-6HRS PRN 21 Days Lasix (Furosemide) 40 Mg Tablet 1 Tab PO DAILY 30 Days Metoprolol Tartrate 25 Mg Tablet 25 Mg PO BID Eliquis (Apixaban) 5 Mg Tablet 5 Mg PO BID Hold 2-3 days prior to thyoroid sx [Nicotine 21MG] 1 PATCH Patch 1 Patch TD PRN DAILY PRN MDD 1 Ventolin Hfa Inhaler (Albuterol Sulfate) 18 Gm Hfa.aer.ad 2 Puff INH Q4HRS Tessalon Perle (Benzonatate) 100 Mg Capsule 1 Cap PO TID Flonase Allergy Relief (Fluticasone Propionate) 9.9 Ml [place].susp 2 Sprays NS DAILY Reported Voltaren (Diclofenac Sodium) 100 Gm Gel..gram. 1 Gm TP QID Gabapentin 600 Mg Tablet 600 Mg PO DAILY Cyclobenzaprine Hcl 10 Mg Tablet 1 Tab PO PRN TID PRN Vitals/I & O Vital Sign - Last 24 Hours 03/26/19 03/26/19 03/26/19 03/26/19 13:16 13:25 14:28 15:52 Temp 98.4 98.4 Pulse 93 118 109 Resp 20 B/P (MAP) 155/78 120/68 (85) 120/68 Pulse Ox 98 100 O2 Delivery Nasal Cannula Nasal Cannula O2 Flow Rate 2.0 2.0 03/26/19 03/26/19 03/26/19 03/26/19 16:50 18:59 20:00 20:45 Temp 97.5 97.5 Pulse 87 109 Resp 18 B/P (MAP) 115/66 (82) 115/66 Pulse Ox 98 100 O2 Delivery Nasal Cannula Nasal Cannula Nasal Cannula O2 Flow Rate 2.0 2.0 2.0 03/26/19 03/26/19 03/27/19 03/27/19 21:15 22:05 03:12 07:00 Temp 97.6 97.5 97.4 97.6 97.5 97.4 Pulse 96 80 97 Resp 18 16 18 B/P (MAP) 107/57 (74) 101/61 (74) 101/63 (76) Pulse Ox 100 100 99 100 O2 Delivery Nasal Cannula Nasal Cannula Nasal Cannula Nasal Cannula O2 Flow Rate 2.0 2.0 2.0 2.0 03/27/19 03/27/19 03/27/19 03/27/19 08:00 08:01 08:09 11:34 Pulse 97 B/P (MAP) 101/63 Pulse Ox 100 98 O2 Delivery Nasal Cannula Nasal Cannula Nasal Cannula O2 Flow Rate 2.0 2.0 2.0 Intake and Output 03/26/19 03/26/19 03/27/19 15:00 23:00 07:00 Intake Total 240 ml 600 ml 690 ml Output Total 200 ml Balance 240 ml 600 ml 490 ml Nutrition Consultation Dietary Evaluation: Recommendations by RD: Dietary education by RD, Increase Calorie Intake, Protein supplementation Comments: Continue w/cardiac diet, will add ground meats REC Ensure TID (all flavors) Expected Outcomes/Goals: PO intake to meet >75% est needs Malnutrition Findings: Body Fat Depletion (Non Severe: Mild Depletion Weight Status: Appropriate SANJUANITA PEÑA MD Mar 27, 2019 12:04
--- NOTE | 2019-03-27 13:41 | PDOC ---
PROGRESS NOTES Subjective Subjective Patient seen and examined Objective Objective Vital Signs Date Time Temp Pulse Resp B/P (MAP) Pulse Ox O2 Delivery O2 Flow Rate FiO2 03/27/19 11:34 98 Nasal Cannula 2.0 03/27/19 11:00 98.0 87 18 112/59 (76) 98.0 Intake and Output 03/27/19 07:00 Intake Total 1530 ml Output Total 200 ml Balance 1330 ml Intake Oral 1530 ml Output Urine Total 200 ml # Voids 3 # Bowel Movements 1 Physical Exam Abdomen: Normal bowel sounds Heart: Regular rate General: mild distress Lungs: Other (slightly decreased breath sounds) Assessment Assessment Problems Medical Problems: (1) Acute renal insufficiency Status: Acute (2) Altered mental status Status: Acute (3) CHF exacerbation Status: Acute (4) Elevated INR Status: Acute (5) Septic shock Status: Acute (6) UTI (urinary tract infection) Status: Acute 1. Presumed NICM; LVEF 40-45% with previous hyperthyroidism and AFIB RVRs. Improving post diuresis. 2. Acute on chronic systolic CHF: 3. NEGRITO on CKD: monitoring lab. 4. Persistent AFIB: rate controlled 5. Coagulopathy: INR 5.5 unclear etiology possibly from contributing hypoperfusion, significant NEGRITO, sepsis were all part of the differential with associated use of eliquis. Now improved. 6. Hypertension: controlled 7. Moderate AI 8. Severe pulmonary HTN 9. Lactic acidosis, sepsis with UTI. Abx per PCP. Improved 10. Acquired hypothyroidism: recent thyroidectomy. On replacement Comment Review of Relevant I have reviewed the following items suad (where applicable) has been applied. Labs Laboratory Tests Test 03/26/19 05:30 03/26/19 07:42 White Blood Count 7.0 x10^3/uL (4.0-11.0) Red Blood Count 4.47 x10^6/uL (3.50-5.40) Hemoglobin 13.7 g/dL (12.0-15.5) Hematocrit 42.2 % (36.0-47.0) Mean Corpuscular Volume 94 fL (79-100) Mean Corpuscular Hemoglobin 31 pg (25-35) Mean Corpuscular Hemoglobin Concent 33 g/dL (31-37) Red Cell Distribution Width 19.0 % (11.5-14.5) Platelet Count 143 x10^3/uL (140-400) Neutrophils (%) (Auto) 61 % (31-73) Lymphocytes (%) (Auto) 27 % (24-48) Monocytes (%) (Auto) 10 % (0-9) Eosinophils (%) (Auto) 1 % (0-3) Basophils (%) (Auto) 1 % (0-3) Neutrophils # (Auto) 4.3 x10^3/uL (1.8-7.7) Lymphocytes # (Auto) 1.9 x10^3/uL (1.0-4.8) Monocytes # (Auto) 0.7 x10^3/uL (0.0-1.1) Eosinophils # (Auto) 0.1 x10^3/uL (0.0-0.7) Basophils # (Auto) 0.1 x10^3/uL (0.0-0.2) Prothrombin Time 13.5 SEC (11.7-14.0) Prothromb Time International Ratio 1.1 (0.8-1.1) Sodium Level 132 mmol/L (136-145) Potassium Level 4.6 mmol/L (3.5-5.1) Chloride Level 95 mmol/L (98-107) Carbon Dioxide Level 32 mmol/L (21-32) Anion Gap 5 (6-14) Blood Urea Nitrogen 46 mg/dL (7-20) Creatinine 1.3 mg/dL (0.6-1.0) Estimated GFR (Cockcroft-Gault) 50.1 BUN/Creatinine Ratio 35 (6-20) Glucose Level 195 mg/dL (70-99) Calcium Level 8.5 mg/dL (8.5-10.1) Total Bilirubin 0.4 mg/dL (0.2-1.0) Aspartate Amino Transf (AST/SGOT) 33 U/L (15-37) Alanine Aminotransferase (ALT/SGPT) 16 U/L (14-59) Alkaline Phosphatase 100 U/L (46-116) Total Protein 7.2 g/dL (6.4-8.2) Albumin 2.5 g/dL (3.4-5.0) Albumin/Globulin Ratio 0.5 (1.0-1.7) Glucose (Fingerstick) 82 mg/dL (70-99) Microbiology 03/20/19 Blood Culture - Final, Complete NO GROWTH AFTER 5 DAYS 03/20/19 Urine Culture - Final, Complete 03/20/19 Urine Culture Result 1 (SUMMER) - Final, Complete 03/20/19 Antimicrobic Susceptibility - Final, Complete Medications Current Medications Bumetanide (Bumex) 0.5 mg 1X ONCE IV Last administered on 03/20/19at 01:56; Start 03/20/19 at 02:00; Stop 03/20/19 at 02:01; Status DC Ondansetron HCl (Zofran) 4 mg PRN Q8HRS PRN IV NAUSEA/VOMITING; Start 03/20/19 at 01:45; Stop 03/21/19 at 01:44; Status DC Sodium Chloride 1,000 ml @ 1,000 mls/hr 1X ONCE IV Last administered on 03/20/19at 03:00; Start 03/20/19 at 03:00; Stop 03/20/19 at 03:59; Status DC Sodium Chloride 500 ml @ 500 mls/hr 1X ONCE IV Last administered on 03/20/19at 03:01; Start 03/20/19 at 03:00; Stop 03/20/19 at 03:59; Status DC Ceftriaxone Sodium (Rocephin) 1 gm 1X ONCE IVP ; Start 03/20/19 at 02:45; Stop 03/20/19 at 02:51; Status DC Vancomycin HCl 1.25 gm/Sodium Chloride 500 ml @ 250 mls/hr 1X ONCE IV Last administered on 03/20/19at 03:04; Start 03/20/19 at 03:00; Stop 03/20/19 at 04:59; Status DC Aztreonam (Azactam) 2 gm 1X ONCE IVP Last administered on 03/20/19at 03:03; Start 03/20/19 at 03:15; Stop 03/20/19 at 03:16; Status DC Pharmacy Consult (C.diff Med Screen By Rx) 1 each 1X ONCE [facility] ; Start 03/20/19 at 04:00; Stop 03/20/19 at 04:05; Status DC Influenza Virus Vaccine Quadrival (Afluria Quad 2019-20 (3yr Up) Syringe) 0.5 ml ONCE ONCE VAX IM ; Start 03/20/19 at 09:00; Stop 03/20/19 at 09:01; Status UNV Levofloxacin/ Dextrose 50 ml @ 50 mls/hr Q24H IV Last administered on 03/24/19 12:37; Start 03/20/19 at 12:00; Stop 03/24/19 at 13:23; Status DC Benzonatate (Tessalon Perle) 100 mg TID PO Last administered on 03/27/19 08:08; Start 03/20/19 at 14:00 Cyclobenzaprine HCl (Flexeril) 10 mg PRN TID PRN PO MUSCLE SPASMS; Start 03/20/19 at 13:45 Diclofenac Sodium (Voltaren) 1 donald QID TP Last administered on 03/27/19 08:08; Start 03/20/19 at 14:00 Furosemide (Lasix) 40 mg DAILY PO Last administered on 03/26/19 09:09; Start 03/20/19 at 14:00; Stop 03/26/19 at 14:08; Status DC Acetaminophen/ Hydrocodone Bitart (Lortab 5/325) 1 tab PRN Q4HRS PRN PO PAIN Last administered on 03/25/19 05:22; Start 03/20/19 at 13:45 Levothyroxine Sodium (Synthroid) 25 mcg DAILY06 PO Last administered on 03/27/19 06:23; Start 03/20/19 at 14:00 Metoprolol Tartrate (Lopressor) 25 mg BID PO Last administered on 03/27/19 08:09; Start 03/20/19 at 14:00 Non-Formulary Medication (Albuterol Sulfate (Ventolin Hfa Inhaler)) 2 puff Q4HRS INH ; Start 03/20/19 at 16:00; Status UNV Fluticasone Propionate (Flonase) 2 spray DAILY NS Last administered on 03/27/19 08:08; Start 03/20/19 at 14:00 Gabapentin (Neurontin) 600 mg DAILY PO Last administered on 03/27/19 08:09; Start 03/20/19 at 14:00 Nicotine (Nicoderm Cq 21mg) 1 patch PRN DAILY PRN TD SMOKING CESSATION Last administered on 03/26/19 09:07; Start 03/20/19 at 14:00 Albuterol/ Ipratropium (Duoneb) 3 ml RTQID NEB Last administered on 03/27/19 11:34; Start 03/20/19 at 16:00 Albuterol Sulfate (Ventolin Neb Soln) 2.5 mg PRN Q4HRS PRN NEB SHORTNESS OF BREATH; Start 03/20/19 at 13:45 Lactobacillus Rhamnosus (Culturelle) 1 cap BID PO Last administered on 03/27/19 08:08; Start 03/20/19 at 21:00 Phytonadione (Mephyton Oral Soln) 1 mg 1X ONCE PO Last administered on 03/20/19at 15:29; Start 03/20/19 at 15:15; Stop 03/20/19 at 15:16; Status DC Furosemide (Lasix) 20 mg 1X ONCE IVP Last administered on 03/21/19 12:53; Start 03/21/19 at 10:15; Stop 03/21/19 at 10:17; Status DC Potassium Chloride (Klor-Con) 80 meq 1X ONCE PO Last administered on 03/21/19 12:53; Start 03/21/19 at 10:15; Stop 03/21/19 at 10:17; Status DC Potassium Chloride (Klor-Con) 40 meq 1X ONCE PO Last administered on 03/22/19 10:43; Start 03/22/19 at 10:30; Stop 03/22/19 at 10:31; Status DC Digoxin (Lanoxin) 250 mcg 1X ONCE IV Last administered on 03/22/19 10:43; Start 03/22/19 at 10:45; Stop 03/22/19 at 10:46; Status DC Apixaban (Eliquis) 2.5 mg BID PO Last administered on 03/27/19 08:08; Start 03/23/19 at 21:00 Furosemide (Lasix) 40 mg 1X ONCE PO Last administered on 03/23/19 15:46; Start 03/23/19 at 15:30; Stop 03/23/19 at 15:31; Status DC Info (Anti-Coagulation Monitoring By Pharmacy) 1 each PRN DAILY PRN MC SEE COMMENTS Last administered on 03/27/19 08:32; Start 03/24/19 at 07:45 Aztreonam (Azactam) 1 gm Q12HR IVP Last administered on 03/27/19 08:08; Start 03/24/19 at 14:00; Stop 03/27/19 at 11:22; Status DC Digoxin (Lanoxin) 500 mcg 1X ONCE IV Last administered on 03/24/19at 14:48; Start 03/24/19 at 15:15; Stop 03/24/19 at 15:16; Status DC Digoxin (Lanoxin) 125 mcg QODAY PO Last administered on 03/26/19at 09:08; Start 03/26/19 at 09:00 Furosemide (Lasix) 40 mg 1X ONCE PO Last administered on 03/25/19at 14:34; Start 03/25/19 at 15:00; Stop 03/25/19 at 15:01; Status DC Albuterol Sulfate (Ventolin Neb Soln) 2.5 mg 1X ONCE NEB ; Start 03/26/19 at 05:15; Stop 03/26/19 at 05:16; Status DC Furosemide (Lasix) 40 mg 1X ONCE IVP Last administered on 03/26/19at 11:11; Start 03/26/19 at 11:00; Stop 03/26/19 at 11:01; Status DC Bumetanide (Bumex) 1 mg DAILY IV Last administered on 03/27/19at 08:08; Start 03/27/19 at 09:00 Amlodipine Besylate (Norvasc) 5 mg 1X ONCE PO Last administered on 03/26/19at 15:52; Start 03/26/19 at 14:15; Stop 03/26/19 at 14:16; Status DC Nitrofurantoin Macrocrystals (Macrobid) 100 mg BID PO ; Start 03/27/19 at 21:00 Active Scripts Active Synthroid (Levothyroxine Sodium) 25 Mcg Tablet 25 Mcg PO DAILY06 Hydrocodone-Apap 5-325 (Hydrocodone Bit/Acetaminophen) 1 Tab Tablet 1 Tab PO PRN Q4HRS PRN Proair Hfa Inhaler (Albuterol Sulfate) 8.5 Gm Hfa.aer.ad 2 Puff IH PRN Q4-6HRS PRN 21 Days Lasix (Furosemide) 40 Mg Tablet 1 Tab PO DAILY 30 Days Metoprolol Tartrate 25 Mg Tablet 25 Mg PO BID Eliquis (Apixaban) 5 Mg Tablet 5 Mg PO BID Hold 2-3 days prior to thyoroid sx [Nicotine 21MG] 1 PATCH Patch 1 Patch TD PRN DAILY PRN MDD 1 Ventolin Hfa Inhaler (Albuterol Sulfate) 18 Gm Hfa.aer.ad 2 Puff INH Q4HRS Tessalon Perle (Benzonatate) 100 Mg Capsule 1 Cap PO TID Flonase Allergy Relief (Fluticasone Propionate) 9.9 Ml [place].susp 2 Sprays NS DAILY Reported Voltaren (Diclofenac Sodium) 100 Gm Gel..gram. 1 Gm TP QID Gabapentin 600 Mg Tablet 600 Mg PO DAILY Cyclobenzaprine Hcl 10 Mg Tablet 1 Tab PO PRN TID PRN Vitals/I & O Vital Sign - Last 24 Hours 03/26/19 03/26/19 03/26/19 03/26/19 14:28 15:52 16:50 18:59 Temp 98.4 97.5 98.4 97.5 Pulse 118 109 87 Resp 20 18 B/P (MAP) 120/68 (85) 120/68 115/66 (82) Pulse Ox 100 98 100 O2 Delivery Nasal Cannula Nasal Cannula Nasal Cannula O2 Flow Rate 2.0 2.0 2.0 03/26/19 03/26/19 03/26/19 03/26/19 20:00 20:45 21:15 22:05 Temp 97.6 97.6 Pulse 109 96 Resp 18 B/P (MAP) 115/66 107/57 (74) Pulse Ox 100 100 O2 Delivery Nasal Cannula Nasal Cannula Nasal Cannula O2 Flow Rate 2.0 2.0 2.0 03/27/19 03/27/19 03/27/19 03/27/19 03:12 07:00 08:00 08:01 Temp 97.5 97.4 97.5 97.4 Pulse 80 97 Resp 16 18 B/P (MAP) 101/61 (74) 101/63 (76) Pulse Ox 99 100 100 O2 Delivery Nasal Cannula Nasal Cannula Nasal Cannula Nasal Cannula O2 Flow Rate 2.0 2.0 2.0 2.0 03/27/19 03/27/19 03/27/19 08:09 11:00 11:34 Temp 98.0 98.0 Pulse 97 87 Resp 18 B/P (MAP) 101/63 112/59 (76) Pulse Ox 99 98 O2 Delivery Nasal Cannula Nasal Cannula O2 Flow Rate 2.0 2.0 Intake and Output 03/26/19 03/26/19 03/27/19 15:00 23:00 07:00 Intake Total 240 ml 600 ml 690 ml Output Total 200 ml Balance 240 ml 600 ml 490 ml Nutrition Consultation Dietary Evaluation: Recommendations by RD: Dietary education by RD, Increase Calorie Intake, Protein supplementation Comments: Continue w/cardiac diet, will add ground meats REC Ensure TID (all flavors) Expected Outcomes/Goals: PO intake to meet >75% est needs Malnutrition Findings: Body Fat Depletion (Non Severe: Mild Depletion Weight Status: Appropriate YOLA SAUCEDO MD Mar 27, 2019 13:41
[2019-03-27 15:00] VITALS: BP 99/54
[2019-03-27 19:50] VITALS: BP 93/65
[2019-03-27] MEDS: NITROFURANTOIN MONOHYD/M-CRYST 100 MG CAPSULE. PO SCH (20:55)
[2019-03-27 23:30] VITALS: BP 135/70
[2019-03-28 03:00] VITALS: BP 113/57
[2019-03-28] MEDS: LEVOTHYROXINE 25 MCG TABLET. PO SCH (05:49)
[2019-03-28 07:40] LABS: CALCIUM 8.6 mg/dL (8.5-10.1); CREATININE 1.1 mg/dL (0.6-1.0); GFR 60.7
[2019-03-28 07:56] LABS: POTASSIUM 5.2 mmol/L (3.5-5.1)
[2019-03-28 07:59] VITALS: BP 98/51
[2019-03-28] MEDS: DICLOFENAC SODIUM 1% TOPICAL GEL 100GM TUBE. TP SCH ×5 (08:10→20:45)
[2019-03-28] MEDS: FLUTICASONE 50MCG/NASAL SPRAY 16GM BOTTLE. NS SCH (08:10)
[2019-03-28] MEDS: NITROFURANTOIN MONOHYD/M-CRYST 100 MG CAPSULE. PO SCH ×2 (08:11→20:45)
[2019-03-28] MEDS: APIXABAN 2.5 MG TABLET. PO SCH (08:11)
[2019-03-28] MEDS: LACTOBACILLUS RHAMNOSUS GG 1 CAPSULE. PO SCH ×2 (08:11→20:43)
[2019-03-28] MEDS: BENZONATATE 100 MG CAPSULE. PO SCH ×3 (08:11→20:45)
[2019-03-28] MEDS: GABAPENTIN 300 MG CAPSULE. PO SCH (08:11)
[2019-03-28] MEDS: METOPROLOL TART IMMED RELEASE 25 MG TABLET. PO SCH ×2 (08:12→20:45)
[2019-03-28] MEDS: BUMETANIDE 2.5 MG/10 ML VIAL. IV SCH (08:13)
[2019-03-28] MEDS: DIGOXIN 125 MCG TABLET. PO SCH (08:15)
[2019-03-28] MEDS ORDERED: SODIUM POLYSTYRENE SULFON/SORB 15 GM/60 ML ORAL.SUSP PO ONE (09:00)
[2019-03-28] MEDS: ANTI-COAG MONITOR BY PHARMACY. MC PRN (09:08)
[2019-03-28] MEDS: IPRATRPIUM/ALBUTEROL 0.5/2.5MG 3 ML NEBU. NEB SCH ×4 (09:11→19:48)
--- NOTE | 2019-03-28 09:51 | PDOC ---
PULMONARY PROGRESS NOTES Subjective PT. remains on 2 liters N/C Denies SOB or increased cough nursing reports no overnight concerns Vitals Vital Signs Date Time Temp Pulse Resp B/P (MAP) Pulse Ox O2 Delivery O2 Flow Rate FiO2 03/28/19 09:12 98 Nasal Cannula 2.0 03/28/19 08:15 75 98/51 03/28/19 07:59 97.5 20 97.5 ROS: No Nausea, No Chest Pain, No Abdominal Pain, No Increase Cough General: Alert Lungs: Clear Cardiovascular: S1 Abdomen: Soft, Non-tender Neuro Exam: Alert Extremities: No Edema Skin: Dry, Cool Labs Laboratory Tests Test 03/28/19 05:55 03/28/19 07:56 Sodium Level 139 mmol/L (136-145) Potassium Level 5.2 mmol/L (3.5-5.1) Chloride Level 100 mmol/L (98-107) Carbon Dioxide Level 38 mmol/L (21-32) Anion Gap 1 (6-14) Blood Urea Nitrogen 54 mg/dL (7-20) Creatinine 1.1 mg/dL (0.6-1.0) Estimated GFR (Cockcroft-Gault) 60.7 Glucose Level 72 mg/dL (70-99) Calcium Level 8.6 mg/dL (8.5-10.1) Glucose (Fingerstick) 69 mg/dL (70-99) Laboratory Tests Test 03/28/19 05:55 03/28/19 07:56 Sodium Level 139 mmol/L (136-145) Potassium Level 5.2 mmol/L (3.5-5.1) Chloride Level 100 mmol/L (98-107) Carbon Dioxide Level 38 mmol/L (21-32) Anion Gap 1 (6-14) Blood Urea Nitrogen 54 mg/dL (7-20) Creatinine 1.1 mg/dL (0.6-1.0) Estimated GFR (Cockcroft-Gault) 60.7 Glucose Level 72 mg/dL (70-99) Calcium Level 8.6 mg/dL (8.5-10.1) Glucose (Fingerstick) 69 mg/dL (70-99) Medications Active Scripts Medications Dose Route/Sig Max Daily Dose Days Date Category Dose Instructions Synthroid (Levothyroxine Sodium) 25 Mcg Tablet 25 Mcg PO DAILY06 03/04/19 Rx Hydrocodone-Apap 5-325 (Hydrocodone Bit/Acetaminophen) 1 Tab Tablet 1 Tab PO PRN Q4HRS PRN 03/04/19 Rx Proair Hfa Inhaler (Albuterol Sulfate) 8.5 Gm Hfa.aer.ad 2 Puff IH PRN Q4-6HRS PRN 21 02/14/19 Rx Lasix (Furosemide) 40 Mg Tablet 1 Tab PO DAILY 30 02/14/19 Rx Metoprolol Tartrate 25 Mg Tablet 25 Mg PO BID 02/13/19 Rx Eliquis (Apixaban) 5 Mg Tablet 5 Mg PO BID 02/13/19 Rx Hold 2-3 days prior to thyoroid sx [Nicotine 21MG] 1 PATCH Patch 1 Patch TD PRN DAILY PRN MDD 1 07/25/18 Rx Voltaren (Diclofenac Sodium) 100 Gm Gel..gram. 1 Gm TP QID 07/24/18 Reported Gabapentin 600 Mg Tablet 600 Mg PO DAILY 07/24/18 Reported Cyclobenzaprine Hcl 10 Mg Tablet 1 Tab PO PRN TID PRN 07/24/18 Reported Ventolin Hfa Inhaler (Albuterol Sulfate) 18 Gm Hfa.aer.ad 2 Puff INH Q4HRS 06/14/18 Rx Tessalon Perle (Benzonatate) 100 Mg Capsule 1 Cap PO TID 06/14/18 Rx Flonase Allergy Relief (Fluticasone Propionate) 9.9 Ml Emmett.susp 2 Sprays NS DAILY 06/14/18 Rx Impression . IMPRESSION: 1. Acute hypoxic respiratory failure secondary to acute on chronic systolic heart failure. 2. Underlying chronic obstructive pulmonary disease, clinically compensated. 3. Prerenal azotemia. 4. Moderate protein-calorie malnutrition. 5. Clinically, less likely pneumonia. 6. Status post thyroidectomy few weeks ago. 7. History of atrial flutter, currently on anticoagulation with Eliquis. 8. Hyperkalemia CXR 03/26/19 IMPRESSION: 1. Oyhv-gd-[id number] pulmonary edema is slightly increased. Small bilateral pleural effusions. Moderate cardiomegaly. Plan . RECOMMENDATIONS: Continue present oxygen. CXR in am Continue DuoNebs. Antibiotics per PCP currently on macrobid Cultures NGTD Follow cardiology recs cont. eliquis Hyperkalemia tx./evaluation per PCP Discussed with RN and daughter AMARA MENG MD Mar 28, 2019 09:51
[2019-03-28 10:20] VITALS: BP 87/54
--- NOTE | 2019-03-28 10:52 | PDOC ---
PROGRESS NOTES Chief Complaint Chief Complaint Recent total thyroidectomy for hot nodue and hyperthyroidism with Afib RVR - now on synthroid post total thyrodiectomy GEn weakness- HCR agreeable (was HH on dc ) CHF, diastolic- on bumex now 1 gm IV qD per cards NEGRITO sec to lasix 40 PO at home INCIDENTAL UTI Anaphylaxis to PCN History of Present Illness History of Present Illness known to me, recent thyroidectomy for hot nodule with a fib RVR She and family was adamant before to do just HH NOW back in diastolic CHF on lasix 40 PO at home and now on bumex 1 gm qDaily IV per cards Agreeable to HCR on friday hopefully NO leg swelling, no inc in soa Incidental UTI< i started cipro, anaphylaxis to PCN per family PLAN: IV bumex 1 gm IV daily per cards Monitor lytes PT ot while here over weekend HCR likely friday COnt PO synthroid -s./p thyoidectomy Cont cipro BID ff up urine cx Vitals Vitals Vital Signs Date Time Temp Pulse Resp B/P (MAP) Pulse Ox O2 Delivery O2 Flow Rate FiO2 03/28/19 09:12 98 Nasal Cannula 2.0 03/28/19 08:15 75 98/51 03/28/19 07:59 97.5 20 97.5 Physical Exam General: mild distress Heart: Regular rate Lungs: Clear Abdomen: Normal bowel sounds Extremities: No clubbing, No cyanosis, No edema Skin: No rashes, No breakdown, No significant lesion Labs LABS Laboratory Tests Test 03/28/19 05:55 03/28/19 07:56 Sodium Level 139 mmol/L (136-145) Potassium Level 5.2 mmol/L (3.5-5.1) Chloride Level 100 mmol/L (98-107) Carbon Dioxide Level 38 mmol/L (21-32) Anion Gap 1 (6-14) Blood Urea Nitrogen 54 mg/dL (7-20) Creatinine 1.1 mg/dL (0.6-1.0) Estimated GFR (Cockcroft-Gault) 60.7 Glucose Level 72 mg/dL (70-99) Calcium Level 8.6 mg/dL (8.5-10.1) Glucose (Fingerstick) 69 mg/dL (70-99) Review of Systems Review of Systems weak, all else neg 14 pt reviewed with her Assessment and Plan Assessmemt and Plan Problems Medical Problems: (1) Acute renal insufficiency Status: Acute (2) Altered mental status Status: Acute (3) CHF exacerbation Status: Acute (4) Elevated INR Status: Acute (5) Septic shock Status: Acute (6) UTI (urinary tract infection) Status: Acute Comment Review of Relevant I have reviewed the following items suad (where applicable) has been applied. Labs Laboratory Tests Test 03/28/19 05:55 03/28/19 07:56 Sodium Level 139 mmol/L (136-145) Potassium Level 5.2 mmol/L (3.5-5.1) Chloride Level 100 mmol/L (98-107) Carbon Dioxide Level 38 mmol/L (21-32) Anion Gap 1 (6-14) Blood Urea Nitrogen 54 mg/dL (7-20) Creatinine 1.1 mg/dL (0.6-1.0) Estimated GFR (Cockcroft-Gault) 60.7 Glucose Level 72 mg/dL (70-99) Calcium Level 8.6 mg/dL (8.5-10.1) Glucose (Fingerstick) 69 mg/dL (70-99) Laboratory Tests Test 03/28/19 05:55 03/28/19 07:56 Sodium Level 139 mmol/L (136-145) Potassium Level 5.2 mmol/L (3.5-5.1) Chloride Level 100 mmol/L (98-107) Carbon Dioxide Level 38 mmol/L (21-32) Anion Gap 1 (6-14) Blood Urea Nitrogen 54 mg/dL (7-20) Creatinine 1.1 mg/dL (0.6-1.0) Estimated GFR (Cockcroft-Gault) 60.7 Glucose Level 72 mg/dL (70-99) Calcium Level 8.6 mg/dL (8.5-10.1) Glucose (Fingerstick) 69 mg/dL (70-99) Microbiology 03/20/19 Blood Culture - Final, Complete NO GROWTH AFTER 5 DAYS 03/20/19 Urine Culture - Final, Complete 03/20/19 Urine Culture Result 1 (SUMMER) - Final, Complete 03/20/19 Antimicrobic Susceptibility - Final, Complete Medications Current Medications Bumetanide (Bumex) 0.5 mg 1X ONCE IV Last administered on 03/20/19at 01:56; Start 03/20/19 at 02:00; Stop 03/20/19 at 02:01; Status DC Ondansetron HCl (Zofran) 4 mg PRN Q8HRS PRN IV NAUSEA/VOMITING; Start 03/20/19 at 01:45; Stop 03/21/19 at 01:44; Status DC Sodium Chloride 1,000 ml @ 1,000 mls/hr 1X ONCE IV Last administered on 03/20/19at 03:00; Start 03/20/19 at 03:00; Stop 03/20/19 at 03:59; Status DC Sodium Chloride 500 ml @ 500 mls/hr 1X ONCE IV Last administered on 03/20/19at 03:01; Start 03/20/19 at 03:00; Stop 03/20/19 at 03:59; Status DC Ceftriaxone Sodium (Rocephin) 1 gm 1X ONCE IVP ; Start 03/20/19 at 02:45; Stop 03/20/19 at 02:51; Status DC Vancomycin HCl 1.25 gm/Sodium Chloride 500 ml @ 250 mls/hr 1X ONCE IV Last administered on 03/20/19at 03:04; Start 03/20/19 at 03:00; Stop 03/20/19 at 04:59; Status DC Aztreonam (Azactam) 2 gm 1X ONCE IVP Last administered on 03/20/19at 03:03; Start 03/20/19 at 03:15; Stop 03/20/19 at 03:16; Status DC Pharmacy Consult (C.diff Med Screen By Rx) 1 each 1X ONCE [facility] ; Start 03/20/19 at 04:00; Stop 03/20/19 at 04:05; Status DC Influenza Virus Vaccine Quadrival (Afluria Quad 2019-20 (3yr Up) Syringe) 0.5 ml ONCE ONCE VAX IM ; Start 03/20/19 at 09:00; Stop 03/20/19 at 09:01; Status UNV Levofloxacin/ Dextrose 50 ml @ 50 mls/hr Q24H IV Last administered on 03/24/19at 12:37; Start 03/20/19 at 12:00; Stop 03/24/19 at 13:23; Status DC Benzonatate (Tessalon Perle) 100 mg TID PO Last administered on 03/28/19at 08:11; Start 03/20/19 at 14:00 Cyclobenzaprine HCl (Flexeril) 10 mg PRN TID PRN PO MUSCLE SPASMS; Start 03/20/19 at 13:45 Diclofenac Sodium (Voltaren) 1 donadl QID TP Last administered on 03/28/19 08:10; Start 03/20/19 at 14:00 Furosemide (Lasix) 40 mg DAILY PO Last administered on 03/26/19 09:09; Start 03/20/19 at 14:00; Stop 03/26/19 at 14:08; Status DC Acetaminophen/ Hydrocodone Bitart (Lortab 5/325) 1 tab PRN Q4HRS PRN PO PAIN Last administered on 03/25/19 05:22; Start 03/20/19 at 13:45 Levothyroxine Sodium (Synthroid) 25 mcg DAILY06 PO Last administered on 9at 05:49; Start 03/20/19 at 14:00 Metoprolol Tartrate (Lopressor) 25 mg BID PO Last administered on 03/28/19 08:12; Start 03/20/19 at 14:00 Non-Formulary Medication (Albuterol Sulfate (Ventolin Hfa Inhaler)) 2 puff Q4HRS INH ; Start 03/20/19 at 16:00; Status UNV Fluticasone Propionate (Flonase) 2 spray DAILY NS Last administered on 03/28/19 08:10; Start 03/20/19 at 14:00 Gabapentin (Neurontin) 600 mg DAILY PO Last administered on 03/28/19 08:11; Start 03/20/19 at 14:00 Nicotine (Nicoderm Cq 21mg) 1 patch PRN DAILY PRN TD SMOKING CESSATION Last administered on 03/26/19 09:07; Start 03/20/19 at 14:00 Albuterol/ Ipratropium (Duoneb) 3 ml RTQID NEB Last administered on 03/28/19 09:11; Start 03/20/19 at 16:00 Albuterol Sulfate (Ventolin Neb Soln) 2.5 mg PRN Q4HRS PRN NEB SHORTNESS OF BREATH; Start 03/20/19 at 13:45 Lactobacillus Rhamnosus (Culturelle) 1 cap BID PO Last administered on 12/29/19at 08:11; Start 03/20/19 at 21:00 Phytonadione (Mephyton Oral Soln) 1 mg 1X ONCE PO Last administered on 03/20/19at 15:29; Start 03/20/19 at 15:15; Stop 03/20/19 at 15:16; Status DC Furosemide (Lasix) 20 mg 1X ONCE IVP Last administered on 03/21/19 12:53; Start 03/21/19 at 10:15; Stop 03/21/19 at 10:17; Status DC Potassium Chloride (Klor-Con) 80 meq 1X ONCE PO Last administered on 03/21/19at 12:53; Start 03/21/19 at 10:15; Stop 03/21/19 at 10:17; Status DC Potassium Chloride (Klor-Con) 40 meq 1X ONCE PO Last administered on 03/22/19at 10:43; Start 03/22/19 at 10:30; Stop 03/22/19 at 10:31; Status DC Digoxin (Lanoxin) 250 mcg 1X ONCE IV Last administered on 03/22/19at 10:43; Start 03/22/19 at 10:45; Stop 03/22/19 at 10:46; Status DC Apixaban (Eliquis) 2.5 mg BID PO Last administered on 03/28/19at 08:11; Start 03/23/19 at 21:00; Stop 03/28/19 at 09:06; Status DC Furosemide (Lasix) 40 mg 1X ONCE PO Last administered on 03/23/19at 15:46; Start 03/23/19 at 15:30; Stop 03/23/19 at 15:31; Status DC Info (Anti-Coagulation Monitoring By Pharmacy) 1 each PRN DAILY PRN MC SEE COMMENTS Last administered on 03/28/19 09:08; Start 03/24/19 at 07:45 Aztreonam (Azactam) 1 gm Q12HR IVP Last administered on 03/27/19 08:08; Start 03/24/19 at 14:00; Stop 03/27/19 at 11:22; Status DC Digoxin (Lanoxin) 500 mcg 1X ONCE IV Last administered on 03/24/19 14:48; Start 03/24/19 at 15:15; Stop 03/24/19 at 15:16; Status DC Digoxin (Lanoxin) 125 mcg QODAY PO Last administered on 03/28/19at 08:15; Start 03/26/19 at 09:00 Furosemide (Lasix) 40 mg 1X ONCE PO Last administered on 03/25/19at 14:34; Start 03/25/19 at 15:00; Stop 03/25/19 at 15:01; Status DC Albuterol Sulfate (Ventolin Neb Soln) 2.5 mg 1X ONCE NEB ; Start 03/26/19 at 05:15; Stop 03/26/19 at 05:16; Status DC Furosemide (Lasix) 40 mg 1X ONCE IVP Last administered on 03/26/19at 11:11; Start 03/26/19 at 11:00; Stop 03/26/19 at 11:01; Status DC Bumetanide (Bumex) 1 mg DAILY IV Last administered on 03/28/19at 08:13; Start 03/27/19 at 09:00 Amlodipine Besylate (Norvasc) 5 mg 1X ONCE PO Last administered on 03/26/19at 15:52; Start 03/26/19 at 14:15; Stop 03/26/19 at 14:16; Status DC Nitrofurantoin Macrocrystals (Macrobid) 100 mg BID PO Last administered on 03/28/19at 08:11; Start 03/27/19 at 21:00 Sodium Polystyrene Sulfonate (Kayexalate) 15 gm 1X ONCE PO Last administered on 03/28/19at 09:05; Start 03/28/19 at 09:00; Stop 03/28/19 at 09:01; Status DC Apixaban (Eliquis) 5 mg BID PO ; Start 03/28/19 at 21:00 Active Scripts Active Synthroid (Levothyroxine Sodium) 25 Mcg Tablet 25 Mcg PO DAILY06 Hydrocodone-Apap 5-325 (Hydrocodone Bit/Acetaminophen) 1 Tab Tablet 1 Tab PO PRN Q4HRS PRN Proair Hfa Inhaler (Albuterol Sulfate) 8.5 Gm Hfa.aer.ad 2 Puff IH PRN Q4-6HRS PRN 21 Days Lasix (Furosemide) 40 Mg Tablet 1 Tab PO DAILY 30 Days Metoprolol Tartrate 25 Mg Tablet 25 Mg PO BID Eliquis (Apixaban) 5 Mg Tablet 5 Mg PO BID Hold 2-3 days prior to thyoroid sx [Nicotine 21MG] 1 PATCH Patch 1 Patch TD PRN DAILY PRN MDD 1 Ventolin Hfa Inhaler (Albuterol Sulfate) 18 Gm Hfa.aer.ad 2 Puff INH Q4HRS Tessalon Perle (Benzonatate) 100 Mg Capsule 1 Cap PO TID Flonase Allergy Relief (Fluticasone Propionate) 9.9 Ml Teller.susp 2 Sprays NS DAILY Reported Voltaren (Diclofenac Sodium) 100 Gm Gel..gram. 1 Gm TP QID Gabapentin 600 Mg Tablet 600 Mg PO DAILY Cyclobenzaprine Hcl 10 Mg Tablet 1 Tab PO PRN TID PRN Vitals/I & O Vital Sign - Last 24 Hours 03/27/19 03/27/19 03/27/19 03/27/19 11:00 11:34 15:00 16:08 Temp 98.0 98.1 98.0 98.1 Pulse 87 102 Resp 18 18 B/P (MAP) 112/59 (76) 99/54 (69) Pulse Ox 99 98 99 98 O2 Delivery Nasal Cannula Nasal Cannula Nasal Cannula Nasal Cannula O2 Flow Rate 2.0 2.0 2.0 2.0 03/27/19 03/27/19 03/27/19 03/27/19 19:50 20:00 20:06 20:55 Temp 97.9 97.9 Pulse 103 100 Resp 17 B/P (MAP) 93/65 (74) 93/65 Pulse Ox 99 98 O2 Delivery Nasal Cannula Nasal Cannula Nasal Cannula O2 Flow Rate 2.0 2.0 2.0 03/27/19 03/28/19 03/28/19 03/28/19 23:30 03:00 07:59 08:00 Temp 97.8 97.7 97.5 97.8 97.7 97.5 Pulse 121 97 76 Resp 18 17 20 B/P (MAP) 135/70 (91) 113/57 (75) 98/51 (67) Pulse Ox 100 100 98 O2 Delivery Nasal Cannula Nasal Cannula Nasal Cannula Nasal Cannula O2 Flow Rate 2.0 2.0 2.0 2.0 03/28/19 03/28/19 03/28/19 08:12 08:15 09:12 Pulse 74 75 B/P (MAP) 98/51 98/51 Pulse Ox 98 O2 Delivery Nasal Cannula O2 Flow Rate 2.0 Intake and Output 03/27/19 03/27/19 03/28/19 15:00 23:00 07:00 Intake Total 120 ml 60 ml 100 ml Output Total 200 ml 100 ml Balance 120 ml -140 ml 0 ml Nutrition Consultation Dietary Evaluation: Recommendations by RD: Dietary education by RD, Increase Calorie Intake, Protein supplementation Comments: Continue w/cardiac diet, will add ground meats REC Ensure TID (all flavors) Expected Outcomes/Goals: PO intake to meet >75% est needs Malnutrition Findings: Body Fat Depletion (Non Severe: Mild Depletion Weight Status: Appropriate SANJUANITA PEÑA MD Mar 28, 2019 10:52
--- NOTE | 2019-03-28 13:47 | PDOC ---
PROGRESS NOTES Subjective Subjective Patient seen and examined Objective Objective Vital Signs Date Time Temp Pulse Resp B/P (MAP) Pulse Ox O2 Delivery O2 Flow Rate FiO2 03/28/19 11:02 97 Nasal Cannula 2.0 03/28/19 10:20 97.8 72 18 87/54 (65) 97.8 Intake and Output 03/28/19 07:00 Intake Total 280 ml Output Total 300 ml Balance -20 ml Intake Oral 280 ml Output Urine Total 300 ml # Voids 1 # Bowel Movements 2 Physical Exam Abdomen: Normal bowel sounds Heart: Regular rate General: mild distress Lungs: Other (mildly decreased breath sounds) Assessment Assessment Problems Medical Problems: (1) Acute renal insufficiency Status: Acute (2) Altered mental status Status: Acute (3) CHF exacerbation Status: Acute (4) Elevated INR Status: Acute (5) Septic shock Status: Acute (6) UTI (urinary tract infection) Status: Acute 1. Presumed NICM; LVEF 40-45% with previous hyperthyroidism and AFIB/flutter. Rate under much better control. Monitoring anticoagulation. 2. Acute on chronic systolic CHF: Improving 3. NEGRITO on CKD: monitoring lab. 4. Persistent AFIB/Flutter: rate controlled 5. Coagulopathy: unclear etiology possibly from contributing hypoperfusion, significant NEGRITO, sepsis were all part of the differential with associated use of eliquis. Now improved. 6. Hypertension: controlled 7. Moderate AI 8. Severe pulmonary HTN 9. Lactic acidosis, sepsis with UTI. Abx per PCP. Improved 10. Acquired hypothyroidism: recent thyroidectomy. On replacement Comment Review of Relevant I have reviewed the following items suad (where applicable) has been applied. Labs Laboratory Tests Test 03/28/19 05:55 03/28/19 07:56 03/28/19 12:02 Sodium Level 139 mmol/L (136-145) Potassium Level 5.2 mmol/L (3.5-5.1) Chloride Level 100 mmol/L (98-107) Carbon Dioxide Level 38 mmol/L (21-32) Anion Gap 1 (6-14) Blood Urea Nitrogen 54 mg/dL (7-20) Creatinine 1.1 mg/dL (0.6-1.0) Estimated GFR (Cockcroft-Gault) 60.7 Glucose Level 72 mg/dL (70-99) Calcium Level 8.6 mg/dL (8.5-10.1) Glucose (Fingerstick) 69 mg/dL (70-99) 83 mg/dL (70-99) Laboratory Tests Test 03/28/19 05:55 03/28/19 07:56 03/28/19 12:02 Sodium Level 139 mmol/L (136-145) Potassium Level 5.2 mmol/L (3.5-5.1) Chloride Level 100 mmol/L (98-107) Carbon Dioxide Level 38 mmol/L (21-32) Anion Gap 1 (6-14) Blood Urea Nitrogen 54 mg/dL (7-20) Creatinine 1.1 mg/dL (0.6-1.0) Estimated GFR (Cockcroft-Gault) 60.7 Glucose Level 72 mg/dL (70-99) Calcium Level 8.6 mg/dL (8.5-10.1) Glucose (Fingerstick) 69 mg/dL (70-99) 83 mg/dL (70-99) Microbiology 03/20/19 Blood Culture - Final, Complete NO GROWTH AFTER 5 DAYS 03/20/19 Urine Culture - Final, Complete 03/20/19 Urine Culture Result 1 (SUMMER) - Final, Complete 03/20/19 Antimicrobic Susceptibility - Final, Complete Medications Current Medications Bumetanide (Bumex) 0.5 mg 1X ONCE IV Last administered on 03/20/19at 01:56; Start 03/20/19 at 02:00; Stop 03/20/19 at 02:01; Status DC Ondansetron HCl (Zofran) 4 mg PRN Q8HRS PRN IV NAUSEA/VOMITING; Start 03/20/19 at 01:45; Stop 03/21/19 at 01:44; Status DC Sodium Chloride 1,000 ml @ 1,000 mls/hr 1X ONCE IV Last administered on 03/20/19at 03:00; Start 03/20/19 at 03:00; Stop 03/20/19 at 03:59; Status DC Sodium Chloride 500 ml @ 500 mls/hr 1X ONCE IV Last administered on 03/20/19at 03:01; Start 03/20/19 at 03:00; Stop 03/20/19 at 03:59; Status DC Ceftriaxone Sodium (Rocephin) 1 gm 1X ONCE IVP ; Start 03/20/19 at 02:45; Stop 03/20/19 at 02:51; Status DC Vancomycin HCl 1.25 gm/Sodium Chloride 500 ml @ 250 mls/hr 1X ONCE IV Last administered on 03/20/19at 03:04; Start 03/20/19 at 03:00; Stop 03/20/19 at 04:59; Status DC Aztreonam (Azactam) 2 gm 1X ONCE IVP Last administered on 03/20/19at 03:03; Start 03/20/19 at 03:15; Stop 03/20/19 at 03:16; Status DC Pharmacy Consult (C.diff Med Screen By Rx) 1 each 1X ONCE MC ; Start 03/20/19 at 04:00; Stop 03/20/19 at 04:05; Status DC Influenza Virus Vaccine Quadrival (Afluria Quad 2019-20 (3yr Up) Syringe) 0.5 ml ONCE ONCE VAX IM ; Start 03/20/19 at 09:00; Stop 03/20/19 at 09:01; Status UNV Levofloxacin/ Dextrose 50 ml @ 50 mls/hr Q24H IV Last administered on 03/24/19at 12:37; Start 03/20/19 at 12:00; Stop 03/24/19 at 13:23; Status DC Benzonatate (Tessalon Perle) 100 mg TID PO Last administered on 03/28/19at 08:11; Start 03/20/19 at 14:00 Cyclobenzaprine HCl (Flexeril) 10 mg PRN TID PRN PO MUSCLE SPASMS; Start 03/20/19 at 13:45 Diclofenac Sodium (Voltaren) 1 donald QID TP Last administered on 03/28/19at 08:10; Start 03/20/19 at 14:00 Furosemide (Lasix) 40 mg DAILY PO Last administered on 03/26/19at 09:09; Start 03/20/19 at 14:00; Stop 03/26/19 at 14:08; Status DC Acetaminophen/ Hydrocodone Bitart (Lortab 5/325) 1 tab PRN Q4HRS PRN PO PAIN Last administered on 03/25/19at 05:22; Start 03/20/19 at 13:45 Levothyroxine Sodium (Synthroid) 25 mcg DAILY06 PO Last administered on 03/28/19at 05:49; Start 03/20/19 at 14:00 Metoprolol Tartrate (Lopressor) 25 mg BID PO Last administered on 03/28/19 08:12; Start 03/20/19 at 14:00 Non-Formulary Medication (Albuterol Sulfate (Ventolin Hfa Inhaler)) 2 puff Q4HRS INH ; Start 03/20/19 at 16:00; Status UNV Fluticasone Propionate (Flonase) 2 spray DAILY NS Last administered on 03/28/19 08:10; Start 03/20/19 at 14:00 Gabapentin (Neurontin) 600 mg DAILY PO Last administered on 03/28/19 08:11; Start 03/20/19 at 14:00 Nicotine (Nicoderm Cq 21mg) 1 patch PRN DAILY PRN TD SMOKING CESSATION Last administered on 03/26/19 09:07; Start 03/20/19 at 14:00 Albuterol/ Ipratropium (Duoneb) 3 ml RTQID NEB Last administered on 03/28/19 11:02; Start 03/20/19 at 16:00 Albuterol Sulfate (Ventolin Neb Soln) 2.5 mg PRN Q4HRS PRN NEB SHORTNESS OF BREATH; Start 03/20/19 at 13:45 Lactobacillus Rhamnosus (Culturelle) 1 cap BID PO Last administered on 03/28/19 08:11; Start 03/20/19 at 21:00 Phytonadione (Mephyton Oral Soln) 1 mg 1X ONCE PO Last administered on 03/20/19at 15:29; Start 03/20/19 at 15:15; Stop 03/20/19 at 15:16; Status DC Furosemide (Lasix) 20 mg 1X ONCE IVP Last administered on 03/21/19 12:53; Start 03/21/19 at 10:15; Stop 03/21/19 at 10:17; Status DC Potassium Chloride (Klor-Con) 80 meq 1X ONCE PO Last administered on 03/21/19at 12:53; Start 03/21/19 at 10:15; Stop 03/21/19 at 10:17; Status DC Potassium Chloride (Klor-Con) 40 meq 1X ONCE PO Last administered on 03/22/19at 10:43; Start 03/22/19 at 10:30; Stop 03/22/19 at 10:31; Status DC Digoxin (Lanoxin) 250 mcg 1X ONCE IV Last administered on 03/22/19at 10:43; Start 03/22/19 at 10:45; Stop 03/22/19 at 10:46; Status DC Apixaban (Eliquis) 2.5 mg BID PO Last administered on 03/28/19 08:11; Start 03/23/19 at 21:00; Stop 03/28/19 at 09:06; Status DC Furosemide (Lasix) 40 mg 1X ONCE PO Last administered on 03/23/19at 15:46; Start 03/23/19 at 15:30; Stop 03/23/19 at 15:31; Status DC Info (Anti-Coagulation Monitoring By Pharmacy) 1 each PRN DAILY PRN MC SEE COMMENTS Last administered on 03/28/19at 09:08; Start 03/24/19 at 07:45 Aztreonam (Azactam) 1 gm Q12HR IVP Last administered on 03/27/19at 08:08; Start 03/24/19 at 14:00; Stop 03/27/19 at 11:22; Status DC Digoxin (Lanoxin) 500 mcg 1X ONCE IV Last administered on 03/24/19at 14:48; Start 03/24/19 at 15:15; Stop 03/24/19 at 15:16; Status DC Digoxin (Lanoxin) 125 mcg QODAY PO Last administered on 03/28/19 08:15; Start 03/26/19 at 09:00 Furosemide (Lasix) 40 mg 1X ONCE PO Last administered on 03/25/19at 14:34; Start 03/25/19 at 15:00; Stop 03/25/19 at 15:01; Status DC Albuterol Sulfate (Ventolin Neb Soln) 2.5 mg 1X ONCE NEB ; Start 03/26/19 at 05:15; Stop 03/26/19 at 05:16; Status DC Furosemide (Lasix) 40 mg 1X ONCE IVP Last administered on 03/26/19at 11:11; Start 03/26/19 at 11:00; Stop 03/26/19 at 11:01; Status DC Bumetanide (Bumex) 1 mg DAILY IV Last administered on 03/28/19at 08:13; Start 03/27/19 at 09:00 Amlodipine Besylate (Norvasc) 5 mg 1X ONCE PO Last administered on 03/26/19at 15:52; Start 03/26/19 at 14:15; Stop 03/26/19 at 14:16; Status DC Nitrofurantoin Macrocrystals (Macrobid) 100 mg BID PO Last administered on 03/28/19at 08:11; Start 03/27/19 at 21:00 Sodium Polystyrene Sulfonate (Kayexalate) 15 gm 1X ONCE PO Last administered on 03/28/19at 09:05; Start 03/28/19 at 09:00; Stop 03/28/19 at 09:01; Status DC Apixaban (Eliquis) 5 mg BID PO ; Start 03/28/19 at 21:00 Active Scripts Active Synthroid (Levothyroxine Sodium) 25 Mcg Tablet 25 Mcg PO DAILY06 Hydrocodone-Apap 5-325 (Hydrocodone Bit/Acetaminophen) 1 Tab Tablet 1 Tab PO PRN Q4HRS PRN Proair Hfa Inhaler (Albuterol Sulfate) 8.5 Gm Hfa.aer.ad 2 Puff IH PRN Q4-6HRS PRN 21 Days Lasix (Furosemide) 40 Mg Tablet 1 Tab PO DAILY 30 Days Metoprolol Tartrate 25 Mg Tablet 25 Mg PO BID Eliquis (Apixaban) 5 Mg Tablet 5 Mg PO BID Hold 2-3 days prior to thyoroid sx [Nicotine 21MG] 1 PATCH Patch 1 Patch TD PRN DAILY PRN MDD 1 Ventolin Hfa Inhaler (Albuterol Sulfate) 18 Gm Hfa.aer.ad 2 Puff INH Q4HRS Tessalon Perle (Benzonatate) 100 Mg Capsule 1 Cap PO TID Flonase Allergy Relief (Fluticasone Propionate) 9.9 Ml [place].susp 2 Sprays NS DAILY Reported Voltaren (Diclofenac Sodium) 100 Gm Gel..gram. 1 Gm TP QID Gabapentin 600 Mg Tablet 600 Mg PO DAILY Cyclobenzaprine Hcl 10 Mg Tablet 1 Tab PO PRN TID PRN Vitals/I & O Vital Sign - Last 24 Hours 03/27/19 03/27/19 03/27/19 03/27/19 15:00 16:08 19:50 20:00 Temp 98.1 97.9 98.1 97.9 Pulse 102 103 Resp 18 17 B/P (MAP) 99/54 (69) 93/65 (74) Pulse Ox 99 98 99 O2 Delivery Nasal Cannula Nasal Cannula Nasal Cannula Nasal Cannula O2 Flow Rate 2.0 2.0 2.0 2.0 03/27/19 03/27/19 03/27/19 03/28/19 20:06 20:55 23:30 03:00 Temp 97.8 97.7 97.8 97.7 Pulse 100 121 97 Resp 18 17 B/P (MAP) 93/65 135/70 (91) 113/57 (75) Pulse Ox 98 100 100 O2 Delivery Nasal Cannula Nasal Cannula Nasal Cannula O2 Flow Rate 2.0 2.0 2.0 03/28/19 03/28/19 03/28/19 03/28/19 07:59 08:00 08:12 08:15 Temp 97.5 97.5 Pulse 76 74 75 Resp 20 B/P (MAP) 98/51 (67) 98/51 98/51 Pulse Ox 98 O2 Delivery Nasal Cannula Nasal Cannula O2 Flow Rate 2.0 2.0 03/28/19 03/28/19 03/28/19 09:12 10:20 11:02 Temp 97.8 97.8 Pulse 72 Resp 18 B/P (MAP) 87/54 (65) Pulse Ox 98 96 97 O2 Delivery Nasal Cannula Nasal Cannula Nasal Cannula O2 Flow Rate 2.0 2.0 2.0 Intake and Output 03/27/19 03/27/19 03/28/19 15:00 23:00 07:00 Intake Total 120 ml 60 ml 100 ml Output Total 200 ml 100 ml Balance 120 ml -140 ml 0 ml Nutrition Consultation Dietary Evaluation: Recommendations by RD: Dietary education by RD, Increase Calorie Intake, Protein supplementation Comments: Continue w/cardiac diet, will add ground meats REC Ensure TID (all flavors) Expected Outcomes/Goals: PO intake to meet >75% est needs Malnutrition Findings: Body Fat Depletion (Non Severe: Mild Depletion Weight Status: Appropriate YOLA SAUCEDO MD Mar 28, 2019 13:47
[2019-03-28 15:59] VITALS: BP 105/57
[2019-03-28 19:00] VITALS: BP 99/61
[2019-03-28] MEDS: APIXABAN 5 MG TABLET. PO SCH (20:43)
[2019-03-28 23:00] VITALS: BP 114/77
[2019-03-29 03:00] VITALS: BP 111/68
[2019-03-29] MEDS: LEVOTHYROXINE 25 MCG TABLET. PO SCH (06:13)
[2019-03-29 07:24] VITALS: BP 100/64
[2019-03-29] MEDS: IPRATRPIUM/ALBUTEROL 0.5/2.5MG 3 ML NEBU. NEB SCH ×3 (08:20→16:58)
--- NOTE | 2019-03-29 08:20 | NUR ---
SW following pt. SW requested rehab department to see pt today to request insurance approval for SNU.
[2019-03-29] MEDS ORDERED: CIPR500T94 PO (08:26)
--- NOTE | 2019-03-29 08:27 | SNU/HH DC ---
DISCHARGE ORDERS DISCHARGE INFORMATION: DISCHARGE DATE: Mar 29, 2019 FINAL DIAGNOSIS Problems Medical Problems: (1) Acute renal insufficiency Status: Acute (2) Altered mental status Status: Acute (3) CHF exacerbation Status: Acute (4) Elevated INR Status: Acute (5) Septic shock Status: Acute (6) UTI (urinary tract infection) Status: Acute CONDITION ON DISCHARGE: Stable CODE STATUS: Code Status: Full ASSISTED: SNF STAY <30 DAYS: Yes HOSPICE: HOSPICE: No HOSPICE EVAL & TREAT: No LTAC: ADMIT TO LTAC: No POST DISCHARGE ORDERS: ACTIVITY ORDERS: Activity as tolerated WEIGHT BEARING STATUS: As tolerated DIET AFTER DISCHARGE: Cardiac WOUND/INCISION CARE: Ice to area for comfort, May get incision wet CHECKS AFTER DISCHARGE: CHECKS AFTER DISCHARGE: Check blood press - daily, Check your Temp as needed FOLLOW-UP: PHYSICIAN FOLLOW-UP: pcp alejandro fraser dc, she has incidental uti, cipro pls (pCN anaphylaxis) TREATMENT/EQUIPMENT ORDERS: ADAPTIVE EQUIPMENT NEEDED: None RESPIRATORY EQUIPMENT NEEDED: Oxygen Physical Therapy For: Evalulation/Treatment Occupational Therapy For: Evaluation/Treatment Speech Language Pathology For: Evaluation/Treatment DISCHARGE MEDICATIONS: Home Meds Active Scripts Ciprofloxacin Hcl (CIPRO) 500 Mg Tablet, 1 TAB PO BID for uti for 5 Days, #10 TAB 0 Refills Prov:SANJUANITA PEÑA MD 03/29/19 Levothyroxine Sodium (SYNTHROID) 25 Mcg Tablet, 25 MCG PO DAILY06 for hypothroidism, #30 TAB 0 Refills Prov:NICKELPARISCANDACE L BRAKE REPA[employer]ER [employer]RO[employer] 03/04/19 Hydrocodone Bit/Acetaminophen (HYDROCODONE-APAP 5-325 ) 1 Tab Tablet, 1 TAB PO PRN Q4HRS PRN for MILD PAIN 1-3, #30 TAB 0 Refills Prov:NICKEL,CANDACE L [employer]KE [employer] 03/04/19 Albuterol Sulfate (PROAIR HFA INHALER) 8.5 Gm Hfa.aer.ad, 2 PUFF IH PRN Q4-6HRS PRN for wheezing for 21 Days, #1 INHALER 0 Refills Prov:SANJUANITA PEÑA MD 02/14/19 Furosemide (LASIX) 40 Mg Tablet, 1 TAB PO DAILY for chf for 30 Days, #30 TAB 0 Refills Prov:SANJUANITA PEÑA MD 02/14/19 Metoprolol Tartrate (METOPROLOL TARTRATE) 25 Mg Tablet, 25 MG PO BID for htn, hyperthyroid, #60 TAB Prov:SANJUANITA PEÑA MD 02/13/19 Apixaban (ELIQUIS) 5 Mg Tablet, 5 MG PO BID for a fib, #60 TAB Hold 2-3 days prior to thyoroid sx Prov:SANJUANITA PEÑA MD 02/13/19 [Nicotine 21MG] 1 PATCH PATCH No Conflict Check, 1 PATCH TD PRN DAILY PRN for SMOKING CESSATION MDD 1, #14 Prov:SANJUANITA PEÑA MD 07/25/18 Albuterol Sulfate (VENTOLIN HFA INHALER) 18 Gm Hfa.aer.ad, 2 PUFF INH Q4HRS for FOR ASTHMA, #1 INHALER 0 Refills Prov:PRO LLOYD APRN 06/14/18 Benzonatate (TESSALON PERLE) 100 Mg Capsule, 1 CAP PO TID, #30 CAP Prov:PRO LLOYD APRN 06/14/18 Fluticasone Propionate (Flonase Allergy Relief) 9.9 Ml [place].susp, 2 SPRAYS NS DAILY, #1 BOTTLE Prov:PRO LLOYD APRN 06/14/18 Reported Medications Diclofenac Sodium (VOLTAREN) 100 Gm Gel..gram., 1 GM TP QID for PAIN, #100 GM 2 Refills 07/24/18 Gabapentin (GABAPENTIN) 600 Mg Tablet, 600 MG PO DAILY for NEUROGENIC PAIN, TAB 07/24/18 Cyclobenzaprine Hcl (CYCLOBENZAPRINE HCL) 10 Mg Tablet, 1 TAB PO PRN TID PRN for MUSCLE SPASMS, #90 TAB 07/24/18 SANJUANITA PEÑA MD Mar 29, 2019 08:27
--- NOTE | 2019-03-29 09:31 | PDOC ---
PULMONARY PROGRESS NOTES Subjective PT NOT MORE SOA NOW OFF 02 Vitals Vital Signs Date Time Temp Pulse Resp B/P (MAP) Pulse Ox O2 Delivery O2 Flow Rate FiO2 03/29/19 08:20 100 Nasal Cannula 2.0 03/29/19 07:24 97.4 75 22 100/64 (76) 97.4 ROS: No Nausea, No Chest Pain, No Abdominal Pain, No Increase Cough General: Alert Lungs: Clear Cardiovascular: S1 Abdomen: Soft, Non-tender Neuro Exam: Alert Extremities: No Edema Skin: Dry, Cool Labs Laboratory Tests Test 03/28/19 05:55 03/28/19 07:56 03/28/19 12:02 03/28/19 13:55 Sodium Level 139 mmol/L (136-145) Potassium Level 5.2 mmol/L (3.5-5.1) 4.3 mmol/L (3.5-5.1) Chloride Level 100 mmol/L (98-107) Carbon Dioxide Level 38 mmol/L (21-32) Anion Gap 1 (6-14) Blood Urea Nitrogen 54 mg/dL (7-20) Creatinine 1.1 mg/dL (0.6-1.0) Estimated GFR (Cockcroft-Gault) 60.7 Glucose Level 72 mg/dL (70-99) Calcium Level 8.6 mg/dL (8.5-10.1) Glucose (Fingerstick) 69 mg/dL (70-99) 83 mg/dL (70-99) Laboratory Tests Test 03/28/19 12:02 03/28/19 13:55 Glucose (Fingerstick) 83 mg/dL (70-99) Potassium Level 4.3 mmol/L (3.5-5.1) Medications Active Scripts Medications Dose Route/Sig Max Daily Dose Days Date Category Dose Instructions Synthroid (Levothyroxine Sodium) 25 Mcg Tablet 25 Mcg PO DAILY06 03/04/19 Rx Hydrocodone-Apap 5-325 (Hydrocodone Bit/Acetaminophen) 1 Tab Tablet 1 Tab PO PRN Q4HRS PRN 03/04/19 Rx Proair Hfa Inhaler (Albuterol Sulfate) 8.5 Gm Hfa.aer.ad 2 Puff IH PRN Q4-6HRS PRN 21 02/14/19 Rx Lasix (Furosemide) 40 Mg Tablet 1 Tab PO DAILY 30 02/14/19 Rx Metoprolol Tartrate 25 Mg Tablet 25 Mg PO BID 02/13/19 Rx Eliquis (Apixaban) 5 Mg Tablet 5 Mg PO BID 02/13/19 Rx Hold 2-3 days prior to thyoroid sx [Nicotine 21MG] 1 PATCH Patch 1 Patch TD PRN DAILY PRN MDD 1 07/25/18 Rx Voltaren (Diclofenac Sodium) 100 Gm Gel..gram. 1 Gm TP QID 07/24/18 Reported Gabapentin 600 Mg Tablet 600 Mg PO DAILY 07/24/18 Reported Cyclobenzaprine Hcl 10 Mg Tablet 1 Tab PO PRN TID PRN 07/24/18 Reported Ventolin Hfa Inhaler (Albuterol Sulfate) 18 Gm Hfa.aer.ad 2 Puff INH Q4HRS 06/14/18 Rx Tessalon Perle (Benzonatate) 100 Mg Capsule 1 Cap PO TID 06/14/18 Rx Flonase Allergy Relief (Fluticasone Propionate) 9.9 Ml [place].susp 2 Sprays NS DAILY 06/14/18 Rx Impression . IMPRESSION: 1. Acute hypoxic respiratory failure secondary to acute on chronic systolic heart failure. 2. Underlying chronic obstructive pulmonary disease, clinically compensated. 3. Prerenal azotemia. 4. Moderate protein-calorie malnutrition. 5. Clinically, less likely pneumonia. 6. Status post thyroidectomy few weeks ago. 7. History of atrial flutter, currently on anticoagulation with Eliquis. 8. Hyperkalemia CXR IMPRESSION: 1. Moderate lung congestive changes. 2. Interval development of small bilateral pleural effusions with bibasilar lung airspace opacities likely atelectasis or infiltrates. Plan . UP TO CHAIR Continue present oxygen. CXR REVIEWED Continue DuoNebs. Antibiotics per PCP currently on macrobid Cultures NGTD Follow cardiology recs cont. eliquis Hyperkalemia tx./evaluation per PCP JOSE RIBEIRO MD Mar 29, 2019 09:31
--- NOTE | 2019-03-29 09:54 | RAD ---
EXAM: CHEST 1 VIEW History: Shortness of breath COMPARISON: 03/26/2019 TECHNIQUE: Single portable radiograph of the chest FINDINGS: Mild cardiomegaly. Moderate prominent bilateral interstitial lung markings likely congestive changes. Interval development of small bilateral pleural effusions, right greater than left. Bibasilar lung airspace opacities likely atelectasis or infiltrates. IMPRESSION: 1. Moderate lung congestive changes. 2. Interval development of small bilateral pleural effusions with bibasilar lung airspace opacities likely atelectasis or infiltrates. Electronically signed by: Ron Mcdonald MD (03/29/2019 9:51 AM) [id number]
[2019-03-29] MEDS: DICLOFENAC SODIUM 1% TOPICAL GEL 100GM TUBE. TP SCH ×2 (10:05→12:56)
[2019-03-29] MEDS: FLUTICASONE 50MCG/NASAL SPRAY 16GM BOTTLE. NS SCH (10:05)
[2019-03-29] MEDS: LACTOBACILLUS RHAMNOSUS GG 1 CAPSULE. PO SCH (10:06)
[2019-03-29] MEDS: BENZONATATE 100 MG CAPSULE. PO SCH ×2 (10:06→14:00)
[2019-03-29] MEDS: GABAPENTIN 300 MG CAPSULE. PO SCH (10:06)
[2019-03-29] MEDS: NITROFURANTOIN MONOHYD/M-CRYST 100 MG CAPSULE. PO SCH (10:06)
[2019-03-29] MEDS: METOPROLOL TART IMMED RELEASE 25 MG TABLET. PO SCH (10:07)
[2019-03-29] MEDS: BUMETANIDE 2.5 MG/10 ML VIAL. IV SCH (10:07)
[2019-03-29] MEDS: APIXABAN 5 MG TABLET. PO SCH (10:07)
--- NOTE | 2019-03-29 10:20 | PDOC3 ---
Discharge Summary Visit Information Date of Admission: Mar 20, 2019 Date of Discharge: Mar 29, 2019 Admitting Diagnosis Comment: Recent total thyroidectomy for hot nodue and hyperthyroidism with Afib RVR - now on synthroid post total thyrodiectomy GEn weakness- HCR agreeable (was HH on dc ) CHF, diastolic- on bumex now 1 gm IV qD per cards - shifted to pO lasix 40 NEGRITO sec to lasix 40 PO at home INCIDENTAL UTI - cipro PO on dc Anaphylaxis to PCN Final Diagnosis Problems Medical Problems: (1) Acute renal insufficiency Status: Acute (2) Altered mental status Status: Acute (3) CHF exacerbation Status: Acute (4) Elevated INR Status: Acute (5) Septic shock Status: Acute (6) UTI (urinary tract infection) Status: Acute Brief Hospital Course Allergies Allergies Coded Allergies Type Severity Reaction Last Updated Verified Penicillins Allergy Severe anaphylaxis 03/03/19 Yes Vital Signs Vital Signs Date Time Temp Pulse Resp B/P (MAP) Pulse Ox O2 Delivery O2 Flow Rate FiO2 03/29/19 10:07 110 100/64 03/29/19 08:20 100 Nasal Cannula 2.0 03/29/19 07:24 97.4 22 97.4 Lab Results Laboratory Tests Test 03/28/19 05:55 03/28/19 07:56 03/28/19 12:02 03/28/19 13:55 Sodium Level 139 mmol/L (136-145) Potassium Level 5.2 mmol/L (3.5-5.1) 4.3 mmol/L (3.5-5.1) Chloride Level 100 mmol/L (98-107) Carbon Dioxide Level 38 mmol/L (21-32) Anion Gap 1 (6-14) Blood Urea Nitrogen 54 mg/dL (7-20) Creatinine 1.1 mg/dL (0.6-1.0) Estimated GFR (Cockcroft-Gault) 60.7 Glucose Level 72 mg/dL (70-99) Calcium Level 8.6 mg/dL (8.5-10.1) Glucose (Fingerstick) 69 mg/dL (70-99) 83 mg/dL (70-99) Laboratory Tests Test 03/28/19 12:02 03/28/19 13:55 Glucose (Fingerstick) 83 mg/dL (70-99) Potassium Level 4.3 mmol/L (3.5-5.1) Brief Hospital Course Ms. Levin is a 63 old [AA female who came from home with fam, had a recent total thyroidectomy for not nodule that caused her a fib RVR . She is now on synthoid and doing well on that perspective, BUt she was admitted for diastolic HF (normal EF), and was getting bumex 1 GM IV qd with lytes holding, SHe is now shifted to PO 40 qdaily lasix. FAmily finally agreeable to [facility] SNU SW aware FULL CODE MAR on chart Discharge Information Condition at Discharge: Improved, Stable Disposition/Orders: Other (snu HCR) Scheduled Albuterol Sulfate (Ventolin Hfa Inhaler) 18 Gm Hfa.aer.ad, 2 PUFF INH Q4HRS for FOR ASTHMA, #1 Ref 0 Prescribed by: Nieevs Villafana APRN on 06/14/181206 Last Action: Converted on 03/20/191339 by MAT CRAIG Apixaban (Eliquis) 5 Mg Tablet, 5 MG PO BID for a fib, #60 Hold 2-3 days prior to thyoroid sx Prescribed by: SANJUANITA PEÑA on 02/13/19 0749 Benzonatate (Tessalon Perle) 100 Mg Capsule, 1 CAP PO TID, #30 Prescribed by: Nieves Villafana APRN on 06/14/181206 Last Action: Continued on 03/20/191339 by MAT CRAIG Ciprofloxacin Hcl (Cipro) 500 Mg Tablet, 1 TAB PO BID for uti for 5 Days, #10 Ref 0 Prescribed by: SANJUANITA PEÑA on 03/29/19 0826 Diclofenac Sodium (Voltaren) 100 Gm Gel..gram., 1 GM TP QID for PAIN, #100 Ref 2 (Reported) Entered as Reported by: MICKY LOPEZ on 07/24/18 1509 Last Action: Continued on 03/20/191339 by MAT CRAIG Fluticasone Propionate (Flonase Allergy Relief) 9.9 Ml [place].susp, 2 SPRAYS NS DAILY, #1 Prescribed by: Nieves Villafana APRN on 06/14/181206 Last Action: Converted on 03/20/191339 by MAT CRAIG Furosemide (Lasix) 40 Mg Tablet, 1 TAB PO DAILY for chf for 30 Days, #30 Ref 0 Prescribed by: SANJUANITA PEÑA on 02/14/19 0747 Last Action: Continued on 03/20/191339 by MAT CRAIG Gabapentin (Gabapentin) 600 Mg Tablet, 600 MG PO DAILY for NEUROGENIC PAIN, (Reported) Entered as Reported by: MICKY LOPEZ on 07/24/18 1509 Last Action: Converted on 03/20/191339 by MAT CRAIG Levothyroxine Sodium (Synthroid) 25 Mcg Tablet, 25 MCG PO DAILY06 for hypothroidism, #30 Ref 0 Prescribed by: Brie Ochoa on 03/04/19 0944 Last Action: Continued on 03/20/191339 by MAT CRAIG Metoprolol Tartrate (Metoprolol Tartrate) 25 Mg Tablet, 25 MG PO BID for htn, hyperthyroid, #60 Prescribed by: SANJUANITA PEÑA on 02/13/19 0749 Last Action: Continued on 03/20/191339 by MAT CRAIG Scheduled PRN Albuterol Sulfate (Proair Hfa Inhaler) 8.5 Gm Hfa.aer.ad, 2 PUFF IH PRN Q4-6HRS PRN for wheezing for 21 Days, #1 Ref 0 Prescribed by: SANJUANITA PEÑA on 02/14/19 1021 Cyclobenzaprine Hcl (Cyclobenzaprine Hcl) 10 Mg Tablet, 1 TAB PO PRN TID PRN for MUSCLE SPASMS, #90 (Reported) Entered as Reported by: MICKY LOPEZ on 07/24/18 1509 Last Action: Continued on 03/20/191339 by MAT CRAIG Hydrocodone Bit/Acetaminophen (Hydrocodone-Apap 5-325 ) 1 Tab Tablet, 1 TAB PO PRN Q4HRS PRN for MILD PAIN 1-3, #30 Ref 0 Prescribed by: Brie Ochoa on 03/04/19 0942 Last Action: Continued on 03/20/191339 by MAT CRAIG [Nicotine 21MG] 1 PATCH PATCH, 1 PATCH TD PRN DAILY PRN for SMOKING CESSATION MDD 1, #14 Prescribed by: SANJUANITA PEÑA on 07/25/18 0956 Last Action: Converted on 03/20/191339 by SANJUANITA ECLIS MD Mar 29, 2019 10:20
[2019-03-29 10:38] VITALS: BP 110/66
--- NOTE | 2019-03-29 13:30 | NUR ---
Faxed updated PT/OT notes and orders to [facility]. Insurance auth pending. Addendum: 03/29/19 at 1333 by ARCHANA ALATORRE Orders sent to [facility] not [facility].
[2019-03-29 14:51] VITALS: BP 124/65
--- NOTE | 2019-03-29 15:51 | NUR ---
Insurance approved [facility]. Pt will transport at 1700 via facility arranged w/c van. Pt's daughter notified.
--- NOTE | 2019-03-29 17:10 | NUR ---
Discharge Note: JANNET BOBBY Discharge instructions and discharge home medications reviewed with Other facility and a copy given. All questions have been answered and understanding verbalized. The following instructions and handouts were given: to transport for healthcare resort staff Discontinued lines and drains:PIV discontinued without issues. Patient discharged to healthcare resort, report called to [facility] and all belongings left with the patient.
--- NOTE | 2019-03-30 11:43 | DS ---
DATE OF DISCHARGE: 03/26/2019 ADMISSION DIAGNOSES: Congestive heart failure, mental status change, renal failure, and elevated INR. DISCHARGE DIAGNOSES: Resolving acute on chronic systolic and diastolic heart failure, resolving metabolic encephalopathy. HOSPITAL COURSE: The patient is a pleasant 63-year-old female who presented with mental status change. She was in heart failure. We admitted her. We gently diuresed her because she had some chronic renal insufficiency, did cardiac monitoring, serial enzymes, serial EKGs, consulted Cardiology and Nephrology. Over the next few days, she returned to her baseline, we discharged to correction on 03/26/2019. DISPOSITION: Skilled. ACTIVITY: As tolerated. DIET: Low sodium. MEDICATIONS: Please see MRAD. TOTAL TIME: 32 minutes. MARCO WILBURN DO DR: ELO/carlie JOB#: [id number] / [id number]
== END 2019-03-29 17:00 | DRG 871 ==
LOC: ER 22:52 → 2 NORTH 03-20 02:04
PROVIDERS: ADMIT Internal Medicine; ATTEND Internal Medicine
DX: A41.9 Sepsis, unspecified organism (principal); G93.41 Metabolic encephalopathy; I50.43 Acute on chronic combined systolic (congestive) and diastolic (congestive) heart failure; J96.01 Acute respiratory failure with hypoxia; R65.21 Severe sepsis with septic shock; N17.9 Acute kidney failure, unspecified; N39.0 Urinary tract infection, site not specified; E44.0 Moderate protein-calorie malnutrition; I13.0 Hypertensive heart and chronic kidney disease with heart failure and stage 1 through stage 4 chronic kidney disease, or unspecified chronic kidney disease; I42.8 Other cardiomyopathies; I48.19 Other persistent atrial fibrillation; I48.92 Unspecified atrial flutter; J44.0 Chronic obstructive pulmonary disease with (acute) lower respiratory infection; T88.6XXA Anaphylactic reaction due to adverse effect of correct drug or medicament properly administered, initial encounter; E87.5 Hyperkalemia; E89.0 Postprocedural hypothyroidism; F17.200 Nicotine dependence, unspecified, uncomplicated; I25.5 Ischemic cardiomyopathy; I27.20 Pulmonary hypertension, unspecified; I69.331 Monoplegia of upper limb following cerebral infarction affecting right dominant side; J20.9 Acute bronchitis, unspecified; N18.9 Chronic kidney disease, unspecified; T36.0X5A Adverse effect of penicillins, initial encounter; Z79.01 Long term (current) use of anticoagulants; Z79.890 Hormone replacement therapy; Z79.899 Other long term (current) drug therapy; Z82.49 Family history of ischemic heart disease and other diseases of the circulatory system; F41.9 Anxiety disorder, unspecified; G89.29 Other chronic pain; M19.90 Unspecified osteoarthritis, unspecified site; Z68.26 Body mass index [BMI] 26.0-26.9, adult
CPT/HCPCS: 36415; 70450; 71045; 80048; 80053; 81001; 82140; 82310; 82962; 83605; 83615; 83735; 83880; 84132; 84439; 84443; 84481; 84484; 85025; 85027; 85384; 85610; 85730; 87040; 87086; 87186; 93005; 94640; 94760; 96361; 96374; 96375; 99406; J1160; J1940; J1956; J3370; J3490; J7030; J7040; J7620; 97110; 97116; 97530; 97535; 99285-25; G0378

== ENCOUNTER 2019-08-01 22:30 | Inpatient (IN) | payer BC ==
[~2019-08-01] VITALS: Ht 154.9 cm; Wt 60.4 kg
[~2019-08-01 22:30] MED LIST changes: +ALBU2.5V8 NEB; +ALPR1TAB6 PO; +AMIO200T4 PO; +APIX2.5T PO; +BUDE0.5A NEB; -DICL100G18 TP; +DICL100G54 TP; +DIGO125T3 PO; +DOXY100T PO; +FURO40TA4 PO; +GABA-585 PO; +IPRA3AMP29 NEB; +LEVO100T5 PO; +LEVO75TA5 PO; +LISI2.5T PO; +METO2.5T PO; +POTA20TA4 PO; +TRAM50TA PO
[2019-08-01] MEDS ORDERED: IPRATRPIUM/ALBUTEROL 0.5/2.5MG 3 ML NEBU. NEB ONE (23:00)
[2019-08-01 23:15] LABS: BASO % 1 % (0-3); EOS % 1 % (0-3); HEMATOCRIT 32.9 % (36.0-47.0); HEMOGLOBIN 10.3 g/dL (12.0-15.5); LYMPH # 1.5 x10^3/uL (1.0-4.8); LYMPH % 24 % (24-48); MEAN CORPUSCULAR HEMOGLOBIN 32 pg (25-35); MEAN CORPUSCULAR HGB CONC 31 g/dL (31-37); MEAN CORPUSCULAR VOLUME 103 fL (79-100); MONO # 0.7 x10^3/uL (0.0-1.1); MONO % 11 % (0-9); NEUT # 3.9 x10^3/uL (1.8-7.7); NEUT % 63 % (31-73); PLATELET COUNT 300 x10^3/uL (140-400); RED BLOOD COUNT 3.19 x10^6/uL (3.50-5.40); RED CELL DISTRIBUTION WIDTH 18.4 % (11.5-14.5); WHITE BLOOD COUNT 6.2 x10^3/uL (4.0-11.0)
--- NOTE | 2019-08-01 23:23 | PHYS DOC ---
Past Medical History Past Medical History: Arthritis, CAD, CHF, COPD, Dementia, GERD, High Cholesterol, Hypertension, Pneumonia, TIA, UTI Additional Past Medical Histor: chronic left knee pain,bld transfusion Past Surgical History: Other Additional Past Surgical Histo: UNKNOWN Smoking Status: Former Smoker Alcohol Use: None Drug Use: None General Adult EDM: Chief Complaint: SHORTNESS OF BREATH HPI: HPI: Patient is a 64 year old female who arrives via EMS with report of shortness of breath started a few hours ago. Patient indicates that she has a history of CHF and states that her legs been really swollen and rates pain in her legs and a 6 out of 10. She states the shortness of breaths worsened with any exertion. She denies any chest pain. She denies any fever. She states that nothing improves her symptoms. EMS reports that upon their arrival patient's oxygen saturation was 88% on room air and they placed her on 2 L of oxygen.[] Review of Systems: Review of Systems: Constitutional: Denies fever or chills. [] Respiratory: Complains of cough and shortness of breath. [] Cardiovascular: Denies chest pain or edema. [] GI: Denies abdominal pain, nausea, vomiting, bloody stools or diarrhea. [] Neurologic: Denies headache, focal weakness or sensory changes. [] A full 10 point review of systems has been reviewed and is otherwise negative. Heart Score: Risk Factors: Risk Factors: DM, Current or recent (<one month) smoker, HTN, HLP, family history of CAD, obesity. Risk Scores: Score 0 - 3: 2.5% MACE over next 6 weeks - Discharge Home Score 4 - 6: 20.3% MACE over next 6 weeks - Admit for Clinical Observation Score 7 - 10: 72.7% MACE over next 6 weeks - Early Invasive Strategies Current Medications: Current Medications Medications (Trade) Dose Ordered Sig/Karen Start Time Stop Time Status Last Admin Dose Admin Albuterol/ Ipratropium (Duoneb) 3 ml 1X ONCE 08/01/19 23:00 08/01/19 23:01 DC Allergies: Allergies: Allergies Coded Allergies Type Severity Reaction Last Updated Verified Penicillins Allergy Severe anaphylaxis 06/10/19 Yes Physical Exam: PE: Constitutional: Well developed, well nourished, no acute distress, non-toxic appearance. [] HENT: Normocephalic, atraumatic, bilateral external ears normal, oropharynx moist, no oral exudates, nose normal. [] Eyes: PERRLA, EOMI, conjunctiva normal, no discharge. [] Neck: Normal range of motion, no tenderness, supple, no stridor. [] Cardiovascular: Mildly tachycardic rate with regular rhythm[] Lungs & Thorax: Rales are noted bilaterally to auscultation [] Abdomen: Bowel sounds normal, soft, no tenderness. [] Skin: Warm, dry, no erythema, no rash. [] Extremities: No tenderness, no cyanosis, no clubbing, ROM intact, with 3-4+ lower extremity pitting edema. [] Neurologic: Awake and alert, no focal deficits noted. [] Current Patient Data: Labs: Laboratory Tests Test 08/01/19 23:05 White Blood Count 6.2 x10^3/uL (4.0-11.0) Red Blood Count 3.19 x10^6/uL (3.50-5.40) L Hemoglobin 10.3 g/dL (12.0-15.5) L Hematocrit 32.9 % (36.0-47.0) L Mean Corpuscular Volume 103 fL (79-100) H Mean Corpuscular Hemoglobin 32 pg (25-35) Mean Corpuscular Hemoglobin Concent 31 g/dL (31-37) Red Cell Distribution Width 18.4 % (11.5-14.5) H Platelet Count 300 x10^3/uL (140-400) Neutrophils (%) (Auto) 63 % (31-73) Lymphocytes (%) (Auto) 24 % (24-48) Monocytes (%) (Auto) 11 % (0-9) H Eosinophils (%) (Auto) 1 % (0-3) Basophils (%) (Auto) 1 % (0-3) Neutrophils # (Auto) 3.9 x10^3/uL (1.8-7.7) Lymphocytes # (Auto) 1.5 x10^3/uL (1.0-4.8) Monocytes # (Auto) 0.7 x10^3/uL (0.0-1.1) Eosinophils # (Auto) 0.0 x10^3/uL (0.0-0.7) Basophils # (Auto) 0.0 x10^3/uL (0.0-0.2) Laboratory Tests 08/01/19 23:05 Vital Signs: Vital Signs Date Time Temp Pulse Resp B/P (MAP) Pulse Ox O2 Delivery O2 Flow Rate FiO2 08/01/19 22:44 97.7 120 135/88 (104) 88 Room Air 97.7 EKG: EKG: [] Radiology/Procedures: Radiology/Procedures: [] Impression: PROCEDURE: PORTABLE CHEST 1V PORTABLE CHEST 1V Clinical Indication: Dyspnea Comparison: AP chest, July 24, 2019.. Findings: Stable cardiomegaly. Diffuse interstitial opacities are unchanged. Probable pulmonary vascular congestion. Moderate right and small left pleural effusions are similar. Bibasilar airspace opacities are unchanged. There is no pneumothorax. Bones appear stable. IMPRESSION: Findings compatible with moderate CHF are not significantly changed. Electronically signed by: Mir Loja MD (08/01/2019 11:46 PM) [id number] DICTATED and SIGNED BY: MIR LOJA MD DATE: 08/01/19 2346 Course & Med Decision Making: Course & Med Decision Making Pertinent Labs and Imaging studies reviewed. (See chart for details) [] Dragon Disclaimer: Dragon Disclaimer: This electronic medical record was generated, in whole or in part, using a voice recognition dictation system. Departure Departure Impression: Primary Impression: CHF (congestive heart failure) Qualified Codes: I50.9 - Heart failure, unspecified Disposition: ADMITTED INPATIENT Admitting Physician: DEB Condition: IMPROVED Referrals: MICHAEL VALENTIN (PCP) LINDA REVELES Jr. DO August 01, 2019 23:23
[2019-08-01 23:24] LABS: CREATININE 1.4 mg/dL (0.6-1.0); GFR 45.8; POTASSIUM 5.2 mmol/L (3.5-5.1)
[2019-08-01 23:33] LABS: ALBUMIN 3.2 g/dL (3.4-5.0); ALBUMIN/GLOBULIN RATIO 0.8 (1.0-1.7); TOTAL BILIRUBIN 0.4 mg/dL (0.2-1.0); TOTAL PROTEIN 7.1 g/dL (6.4-8.2)
[2019-08-01 23:44] LABS: BILIRUBIN,URINE NEGATIVE (NEG); CLARITY,URINE CLEAR; COLOR,URINE YELLOW; NITRITE,URINE NEGATIVE (NEG); PROTEIN,URINE 30 mg/dL (NEG-TRACE); UROBILINOGEN,URINE 0.2 mg/dL (0.2 mg/dL)
--- NOTE | 2019-08-01 23:48 | RAD ---
PORTABLE CHEST 1V Clinical Indication: Dyspnea Comparison: AP chest, July 24, 2019.. Findings: Stable cardiomegaly. Diffuse interstitial opacities are unchanged. Probable pulmonary vascular congestion. Moderate right and small left pleural effusions are similar. Bibasilar airspace opacities are unchanged. There is no pneumothorax. Bones appear stable. IMPRESSION: Findings compatible with moderate CHF are not significantly changed. Electronically signed by: Mir Zhang MD (08/01/2019 11:46 PM) [id number]
[2019-08-01 23:51] LABS: BACTERIA,URINE 0 /HPF (0-FEW); HYALINE CASTS, URINE MANY /HPF; RBC,URINE OCC /HPF (0-2); SQUAMOUS EPITHELIAL CELL,UR MANY /LPF; WBC,URINE OCC /HPF (0-4)
[2019-08-02] MEDS ORDERED: ONDANSETRON PF 4 MG/2 ML VIAL. IV PRN (01:00)
[2019-08-02] MEDS ORDERED: MORPHINE SULFATE 2 MG/ML VIAL. IV PRN (01:00)
[2019-08-02] MEDS ORDERED: FUROSEMIDE 40 MG/4 ML VIAL. IVP ONE ×2 (01:30→13:00)
[2019-08-02 02:47] VITALS: BP 130/67
--- NOTE | 2019-08-02 03:12 | NUR ---
The patient, JANNET BOBBY, 64 y/o, F admitted by NAKITA RODRIGUES MD, was given written information regarding hospital policies, unit procedures and contact persons. Patient resting in bed, vitals stable, call light in reach.
[2019-08-02 07:00] VITALS: BP 106/74
--- NOTE | 2019-08-02 08:04 | EKG ---
[facility] [address] [place] [address] Test Date: 2019-08-01 Test Time: 23:22:04 Pat Name: JANNET BOBBY Department: Room: 204 1 Gender: F Storm Chaser: : 1955 Requested By: LINDA REVELES Order Number: [id number] Reading MD: Cabrera Bowens Measurements Intervals [place] Rate: 106 P: [place]: QRS: -31 QRSD: 90 T: 27 QT: 348 QTc: 464 Interpretive Statements ATRIAL FIBRILLATION ABNORMAL LEFT AXIS DEVIATION LOW LIMB LEAD VOLTAGE QRS(T) CONTOUR ABNORMALITY CONSISTENT WITH INFERIOR INFARCT PROBABLY OLD ABNORMAL ECG Electronically Signed On 08-02-2019 9:00:50 CDT by Cabrera Bowens
[2019-08-02 11:00] VITALS: BP 117/66
--- NOTE | 2019-08-02 12:58 | PDOC ---
CHANELL MCCALL PLANNING ENGINEER 08/02/19 1258: CARDIO Progress Notes Date and Time Date of Service 08/02/19 Time of Evaluation 1015 Subjective Subjective: No Palpitations, No Dizziness, Other (breathing improved ) Vitals Vitals Vital Signs Date Time Temp Pulse Resp B/P (MAP) Pulse Ox O2 Delivery O2 Flow Rate FiO2 08/02/19 11:00 98.4 103 20 117/66 (83) 100 Nasal Cannula 2.0 98.4 Weight Weight [ ] Laboratory Labs Laboratory Tests Test 08/01/19 23:05 08/01/19 23:30 White Blood Count 6.2 x10^3/uL (4.0-11.0) Red Blood Count 3.19 x10^6/uL (3.50-5.40) Hemoglobin 10.3 g/dL (12.0-15.5) Hematocrit 32.9 % (36.0-47.0) Mean Corpuscular Volume 103 fL (79-100) Mean Corpuscular Hemoglobin 32 pg (25-35) Mean Corpuscular Hemoglobin Concent 31 g/dL (31-37) Red Cell Distribution Width 18.4 % (11.5-14.5) Platelet Count 300 x10^3/uL (140-400) Neutrophils (%) (Auto) 63 % (31-73) Lymphocytes (%) (Auto) 24 % (24-48) Monocytes (%) (Auto) 11 % (0-9) Eosinophils (%) (Auto) 1 % (0-3) Basophils (%) (Auto) 1 % (0-3) Neutrophils # (Auto) 3.9 x10^3/uL (1.8-7.7) Lymphocytes # (Auto) 1.5 x10^3/uL (1.0-4.8) Monocytes # (Auto) 0.7 x10^3/uL (0.0-1.1) Eosinophils # (Auto) 0.0 x10^3/uL (0.0-0.7) Basophils # (Auto) 0.0 x10^3/uL (0.0-0.2) Sodium Level 138 mmol/L (136-145) Potassium Level 5.2 mmol/L (3.5-5.1) Chloride Level 98 mmol/L (98-107) Carbon Dioxide Level 35 mmol/L (21-32) Anion Gap 5 (6-14) Blood Urea Nitrogen 29 mg/dL (7-20) Creatinine 1.4 mg/dL (0.6-1.0) Estimated GFR (Cockcroft-Gault) 45.8 BUN/Creatinine Ratio 21 (6-20) Glucose Level 125 mg/dL (70-99) Calcium Level 9.0 mg/dL (8.5-10.1) Total Bilirubin 0.4 mg/dL (0.2-1.0) Aspartate Amino Transf (AST/SGOT) 58 U/L (15-37) Alanine Aminotransferase (ALT/SGPT) 39 U/L (14-59) Alkaline Phosphatase 77 U/L (46-116) Troponin I Quantitative 0.022 ng/mL (0.000-0.055) DT-Iqt-U-Type Natriuretic Peptide 18402 pg/mL (0-124) Total Protein 7.1 g/dL (6.4-8.2) Albumin 3.2 g/dL (3.4-5.0) Albumin/Globulin Ratio 0.8 (1.0-1.7) Urine Collection Type U cath Urine Color Yellow Urine Clarity Clear Urine pH 7.0 (<5.0-8.0) Urine Specific [place] 1.015 (1.000-1.030) Urine Protein 30 mg/dL (NEG-TRACE) Urine Glucose (UA) Negative mg/dL (NEG) Urine Ketones (Stick) Negative mg/dL (NEG) Urine Blood Negative (NEG) Urine Nitrite Negative (NEG) Urine Bilirubin Negative (NEG) Urine Urobilinogen Dipstick 0.2 mg/dL (0.2 mg/dL) Urine Leukocyte Esterase Trace (NEG) Urine RBC Occ /HPF (0-2) Urine WBC Occ /HPF (0-4) Urine Squamous Epithelial Cells Many /LPF Urine Bacteria 0 /HPF (0-FEW) Urine Hyaline Casts Many /HPF Urine Mucus Marked /LPF Physical Exam HEENT: Neck Supple W Full Motion Chest: Symmetric LUNGS: Other (diminished bases) Heart: irregularly irregular (AFIB- rate controlled) Abdomen: Soft N/T Extremities: Other (2-3+ bilateral LE edema ) Neurology: alert, oriented, follow commands Assessment Assessment Continuum of care Please see consult from 07/25/19 for further details. Consult reason; CHF Referring physician; Dr. Pompa This is a 64 yo female, who is well known to our service from prior hospitalizations. Patient was admitted last week and treated for acute on chronic respiratory failure with acute on chronic CHF, AECOPD, and NEGRITO/CKD. She was discharged home 07/27. Returned last night for shortness of breath and LE edema. Reports compliance with meds. No chest pain, palpitations, dizziness, diaphoresis, or nausea/vomiting. Is breathing better this am following IV Lasix in ED. 1. Acute on chronic respiratory failure; multifactorial with a/c systolic CHF, AE COPD, NEGRITO/CKF, and possible PNA. COVID recently negative. 2. Acute on chronic diastolic/systolic CHF; better compensated s/p IV lasix 3. NICM; LVEF 40-45% Recent cath without obstructive disease 3. PAFIB/flutter; presently AFIB/flutter with controlled rate 4. CKD, hyperkalemia 5. Severe pulmonary HTN/cor pulmonale 6. COPD with past tobaccoism Recommendations Diuresis with monitoring of labs Continue metoprolol/amiodarone for rhythm/rate control No ACEi with NEGRITO/renal disease Eliquis for stroke prevention Supportive care GUCCI SCHMITZ MD 08/02/19 1821: CARDIO Progress Notes Assessment Assessment Patient seen and examined. Agree with ELECTRONIC SCANNER OPERATOR's assessment and plan. Acute resp failure multifactorial as stated above Ac on chr combined diastolic and systolic HF better compensated Atrial flutter rate controlled Continue Eliquis for stroke prophylaxis Thank you for your consultation CHANELL MCCALL APRN August 02, 2019 12:58 GUCCI SCHMITZ MD August 02, 2019 18:21
--- NOTE | 2019-08-02 13:06 | NUR ---
SS following for discharge planning. SS reviewed pt chart and discussed with pt RN. Pt is from home with family and is currently requiring oxygen. Pt is current with [facility], ; fax [phone]. Pt was COVID19 negative on 07/27/2019. PT/OT ordered. Pt's daughter agreeable to [facility], ; fax [phone], if senior care unit is recommended. SS will continue to follow for discharge planning.
[2019-08-02] MEDS ORDERED: ANTI-COAG MONITOR BY PHARMACY. MC PRN (13:15)
[2019-08-02] MEDS ORDERED: NICOTINE 21MG PATCH. TD PRN (13:56)
--- NOTE | 2019-08-02 14:06 | HP ---
ADMIT DATE: 08/02/2019 CHIEF COMPLAINT: Shortness of breath. HISTORY OF PRESENT ILLNESS: The patient is a pleasant 64-year-old female well known to my service. We have admitted her multiple times over the past year or so. She has end-stage COPD and heart failure, multiple comorbidities. She also has some dementia. At one point, we had her on hospice within the past couple of months, but she did better and then came back to the hospital with more respiratory failure, but this last time she decided not to go back on hospice. Now, she is back with heart failure again. I discussed the case with ER physician. We are going to admit the patient and consult Cardiology. PAST MEDICAL HISTORY: CHF, COPD, CAD, GERD, dementia, hyperlipidemia, hypertension, pneumonia, TIA, UTIs, chronic left knee pain. ALLERGIES: PENICILLIN. FAMILY HISTORY: Coronary artery disease. SOCIAL HISTORY: She quit smoking. No drink or drugs. I think she lives at home with her family. MEDICATIONS: Reviewed, please refer to the MRAD. REVIEW OF SYSTEMS: Unable to obtain. The patient is just little too confused, but she is short of breath. PHYSICAL EXAMINATION: VITALS: Within normal limits and are stable. GENERAL: No apparent distress. Alert and oriented. HEENT: Normal cephalic atraumatic, external auditory canals are patent EYES: Extraocular muscles are intact, pupils are equally round and reactive to light and accommodation MUSCULOSKELETAL: Well developed, well nourished, good range of motion ENDOCRINE: No thyromegaly was palpated LYMPHATICS: No cervical chain or axillary nodes were noted HEMATOPOIETIC: No bruising NECK: Supple, no JVD, no thyromegaly was noted. LUNGS: She has Bibasilar crackles. HEART: RRR, S1, S2 present. Peripheral pulses intact, no obvious murmurs were noted. ABDOMEN: Soft, nontender. Positive bowel sounds no organomegaly, normal bowel sounds. EXTREMITIES: Without any cyanosis, clubbing, or edema. Pedal pulses intact, Homans sign is negative. NEUROLOGIC: She is confused. PSYCHIATRIC: She is depressed. SKIN: No ulcerations or rashes, good skin turgor, no jaundice. VASCULAR: Good capillary refill, neurovascular bundle appears to be intact. LABORATORY DATA: White count 6, hemoglobin 10.3, platelets 300. Electrolytes: Sodium 138, potassium 5.2, chloride 98, bicarbonate 35, BUN 29, creatinine 1.4, glucose 125. BNP 84512. Troponin 0.02. Urinalysis, trace leukocyte esterase, occasional white cells. Chest x-ray shows heart failure. ASSESSMENT AND PLAN: Acute on chronic systolic and diastolic heart failure in an elderly female who has multiple comorbidities. The patient is being admitted. We will check serial enzymes, serial EKGs. Consult Cardiology, cardiac monitoring, home meds, deep venous thrombosis prophylaxis. Full code. Trend her lab, breathing treatments, p.r.n. morphine, urine culture, empiric IV antibiotics, O2 per nasal cannula. Long-term prognosis is extremely guarded. MARCO WILBURN DO DR: EOL/carlie JOB#: [id number] / [id number]
[2019-08-02] MEDS: BENZONATATE 100 MG CAPSULE. PO SCH ×2 (14:26→20:42)
[2019-08-02 15:00] VITALS: BP 133/78
[2019-08-02] MEDS: IPRATRPIUM/ALBUTEROL 0.5/2.5MG 3 ML NEBU. NEB SCH ×2 (17:02→19:41)
[2019-08-02] MEDS: BUDESONIDE 0.5 MG/2 ML NEBU. NEB SCH (19:41)
[2019-08-02 19:48] VITALS: BP 116/69
[2019-08-02] MEDS: LACTOBACILLUS RHAMNOSUS GG 1 CAPSULE. PO SCH (20:42)
[2019-08-02] MEDS: METOPROLOL TART IMMED RELEASE 25 MG TABLET. PO SCH (20:43)
[2019-08-02] MEDS: APIXABAN 2.5 MG TABLET. PO SCH (20:43)
[2019-08-02 23:03] VITALS: BP 118/60
[2019-08-03] MEDS: oxyCODONE/APAP 5/325 1 TAB TABLET PO PRN ×2 (00:19→20:33)
[2019-08-03 03:08] LABS: BASO # 0.1 x10^3/uL (0.0-0.2); BASO % 1 % (0-3); EOS % 0 % (0-3); HEMOGLOBIN 9.3 g/dL (12.0-15.5); LYMPH # 1.1 x10^3/uL (1.0-4.8); LYMPH % 19 % (24-48); MEAN CORPUSCULAR HEMOGLOBIN 32 pg (25-35); MEAN CORPUSCULAR HGB CONC 32 g/dL (31-37); MEAN CORPUSCULAR VOLUME 101 fL (79-100); MONO # 0.5 x10^3/uL (0.0-1.1); MONO % 9 % (0-9); NEUT # 4.2 x10^3/uL (1.8-7.7); NEUT % 71 % (31-73); PLATELET COUNT 239 x10^3/uL (140-400); RED BLOOD COUNT 2.86 x10^6/uL (3.50-5.40); RED CELL DISTRIBUTION WIDTH 18.2 % (11.5-14.5); WHITE BLOOD COUNT 5.9 x10^3/uL (4.0-11.0)
[2019-08-03 03:10] VITALS: BP 127/68
[2019-08-03 03:26] LABS: ALBUMIN 2.8 g/dL (3.4-5.0); ALBUMIN/GLOBULIN RATIO 0.8 (1.0-1.7); CALCIUM 8.5 mg/dL (8.5-10.1); CREATININE 1.4 mg/dL (0.6-1.0); GFR 45.8; POTASSIUM 4.5 mmol/L (3.5-5.1); TOTAL BILIRUBIN 0.4 mg/dL (0.2-1.0); TOTAL PROTEIN 6.2 g/dL (6.4-8.2)
[2019-08-03] MEDS: LEVOTHYROXINE 100 MCG TABLET PO SCH (05:47)
[2019-08-03 07:00] VITALS: BP 133/83
[2019-08-03] MEDS: IPRATRPIUM/ALBUTEROL 0.5/2.5MG 3 ML NEBU. NEB SCH ×4 (07:28→20:00)
[2019-08-03] MEDS: BUDESONIDE 0.5 MG/2 ML NEBU. NEB SCH ×2 (07:28→20:00)
[2019-08-03] MEDS: BENZONATATE 100 MG CAPSULE. PO SCH ×3 (08:38→20:32)
[2019-08-03] MEDS: LACTOBACILLUS RHAMNOSUS GG 1 CAPSULE. PO SCH ×2 (08:38→20:32)
[2019-08-03] MEDS: APIXABAN 2.5 MG TABLET. PO SCH ×2 (08:38→20:32)
[2019-08-03] MEDS: METOPROLOL TART IMMED RELEASE 25 MG TABLET. PO SCH ×2 (08:38→20:32)
[2019-08-03] MEDS: AMIODARONE HCL 200 MG TABLET. PO SCH (08:38)
[2019-08-03] MEDS: FLUTICASONE 50MCG/NASAL SPRAY 16GM BOTTLE. NS SCH (08:39)
--- NOTE | 2019-08-03 08:59 | PDOC ---
MARLEEN CEBALLOS LICENSING WORKER 08/03/19 0859: CARDIO Progress Notes Date and Time Date of Service 08/03/2019 Time of Evaluation 0915 Subjective Subjective: No Chest Pain, No shortness of breath, No Palpitations Vitals Vitals Vital Signs Date Time Temp Pulse Resp B/P (MAP) Pulse Ox O2 Delivery O2 Flow Rate FiO2 08/03/19 08:38 92 133/83 08/03/19 07:29 100 Nasal Cannula 2.0 08/03/19 07:00 97.8 20 97.8 Weight Weight [ ] Input and Output Intake and Output Intake and Output 08/03/19 07:00 Intake Total 250 ml Balance 250 ml Intake Oral 250 ml # Voids 2 # Bowel Movements 1 Laboratory Labs Laboratory Tests Test 08/03/19 02:50 White Blood Count 5.9 x10^3/uL (4.0-11.0) Red Blood Count 2.86 x10^6/uL (3.50-5.40) Hemoglobin 9.3 g/dL (12.0-15.5) Hematocrit 29.0 % (36.0-47.0) Mean Corpuscular Volume 101 fL (79-100) Mean Corpuscular Hemoglobin 32 pg (25-35) Mean Corpuscular Hemoglobin Concent 32 g/dL (31-37) Red Cell Distribution Width 18.2 % (11.5-14.5) Platelet Count 239 x10^3/uL (140-400) Neutrophils (%) (Auto) 71 % (31-73) Lymphocytes (%) (Auto) 19 % (24-48) Monocytes (%) (Auto) 9 % (0-9) Eosinophils (%) (Auto) 0 % (0-3) Basophils (%) (Auto) 1 % (0-3) Neutrophils # (Auto) 4.2 x10^3/uL (1.8-7.7) Lymphocytes # (Auto) 1.1 x10^3/uL (1.0-4.8) Monocytes # (Auto) 0.5 x10^3/uL (0.0-1.1) Eosinophils # (Auto) 0.0 x10^3/uL (0.0-0.7) Basophils # (Auto) 0.1 x10^3/uL (0.0-0.2) Sodium Level 137 mmol/L (136-145) Potassium Level 4.5 mmol/L (3.5-5.1) Chloride Level 97 mmol/L (98-107) Carbon Dioxide Level 38 mmol/L (21-32) Anion Gap 2 (6-14) Blood Urea Nitrogen 29 mg/dL (7-20) Creatinine 1.4 mg/dL (0.6-1.0) Estimated GFR (Cockcroft-Gault) 45.8 BUN/Creatinine Ratio 21 (6-20) Glucose Level 80 mg/dL (70-99) Calcium Level 8.5 mg/dL (8.5-10.1) Total Bilirubin 0.4 mg/dL (0.2-1.0) Aspartate Amino Transf (AST/SGOT) 29 U/L (15-37) Alanine Aminotransferase (ALT/SGPT) 42 U/L (14-59) Alkaline Phosphatase 59 U/L (46-116) Total Protein 6.2 g/dL (6.4-8.2) Albumin 2.8 g/dL (3.4-5.0) Albumin/Globulin Ratio 0.8 (1.0-1.7) Physical Exam HEENT: Neck Supple W Full Motion Chest: Symmetric LUNGS: Other (basilar crackles with faint wheeze) Heart: irregularly irregular (Atrial flutter) Abdomen: Soft N/T Extremities: Other (3+ bilateral LE edema ) Neurology: alert, oriented, follow commands Assessment Assessment 1. Acute on chronic respiratory failure; multifactorial with a/c systolic CHF, AECOPD, NEGRITO/CKF, and possible PNA. COVID recently negative. 2. Acute on chronic diastolic/systolic CHF: potentially induced by RVR 3. NICM; LVEF 45% Recent cath without obstructive disease 3. PAFIB/flutter with RVR; presently flutter with controlled rate 4. CKD3 5. Severe pulmonary HTN/cor pulmonale 6. COPD with past tobaccoism Recommendations 1. Still fluid overloaded. Optimize lasix therapy 2. Potential amiodarone failure. Adequately anticoagulated. Will consider CVN as an inpt. Continue metoprolol 3. No ACEi with NEGRITO/renal disease/hyperkalemia 4. Eliquis for stroke prevention 5. Supportive care GUCCI SCHMITZ MD 08/03/19 1436: CARDIO Progress Notes Assessment Assessment Patient seen and examined. Agree with CALLIOPE PLAYER's assessment and plan. Continue diuresis for acute on chronic combined systolic and diastolic heart failure. Atrial flutter rate controlled. Continue Eliquis for stroke prophylaxis. MARLEEN CEBALLOS APRN August 03, 2019 08:59 GUCCI SCHMITZ MD August 03, 2019 14:36
[2019-08-03] MEDS: FUROSEMIDE 40 MG/4 ML VIAL. IVP SCH ×2 (09:16→16:11)
--- NOTE | 2019-08-03 09:52 | PDOC2 ---
CONSULT Date of Consult Date of Consult DATE: 08/03/19 TIME: 09:41 Reason for Consult Reason for Consult: CKD History of Present Illness Reason for Visit: Pt is a 64-year-old aa female with frequent hospitalizations over the past year or so. She has end-stage COPD and heart failure, multiple comorbidities , dementia. At one point she was on hospice within the past couple of months Denies any CP or SOB currently. No urinary complaints, No N/V D. Uses Home O2 2 LTS She has known chronic kidney disease baseline creatinine anywhere from 1-1.8. Past Medical History Cardiovascular: AFIB, CHF, HTN, Hyperlipidemia Pulmonary: COPD, Pneumonia, Other CENTRAL NERVOUS SYSTEM: CVA GI: GERD, GI bleed Heme/Onc: Anemia NOS Hepatobiliary: No pertinent hx Psych: Anxiety Musculoskeletal: Other Rheumatologic: No pertinent hx Infectious disease: Other Renal/: Chronic renal insuff, UTI Endocrine: Hyperthyroidism, Hypothyroidism Past Surgical History Past Surgical History: Other Family History Family History: Heart Disease Social History ALCOHOL: none Drugs: None Lives: with Family Current Problem List Problem List Problems Medical Problems: (1) CHF (congestive heart failure) Status: Acute Current Medications Current Medications Current Medications Albuterol/ Ipratropium (Duoneb) 3 ml 1X ONCE NEB Last administered on 08/01/19at 23:57; Start 08/01/19 at 23:00; Stop 08/01/19 at 23:01; Status DC Ondansetron HCl (Zofran) 4 mg PRN Q8HRS PRN IV NAUSEA/VOMITING; Start 08/02/19 at 01:00; Stop 08/03/19 at 00:59; Status DC Morphine Sulfate (Morphine Sulfate) 2 mg PRN Q2HR PRN IV PAIN; Start 08/02/19 at 01:00; Stop 08/03/19 at 00:59; Status DC Furosemide (Lasix) 60 mg 1X ONCE IVP Last administered on 08/02/19at 02:14; Start 08/02/19 at 01:30; Stop 08/02/19 at 01:31; Status DC Furosemide (Lasix) 40 mg 1X ONCE IVP Last administered on 08/02/19at 14:28; Start 08/02/19 at 13:00; Stop 08/02/19 at 13:01; Status DC Amiodarone HCl (Cordarone) 200 mg DAILY PO Last administered on 08/03/19 08:38; Start 08/03/19 at 09:00 Apixaban (Eliquis) 2.5 mg BID PO Last administered on 08/03/19 08:38; Start 08/02/19 at 21:00 Metoprolol Tartrate (Lopressor) 25 mg BID PO Last administered on 08/03/19 08:38; Start 08/02/19 at 21:00 Info (Anti-Coagulation Monitoring By Pharmacy) 1 each PRN DAILY PRN MC SEE COMMENTS; Start 08/02/19 at 13:15 Albuterol Sulfate (Ventolin Neb Soln) 2.5 mg PRN Q4HRS PRN NEB SHORTNESS OF BREATH; Start 08/02/19 at 13:30 Benzonatate (Tessalon Perle) 100 mg TID PO Last administered on 08/03/19 08:38; Start 08/02/19 at 14:30 Budesonide (Pulmicort) 0.5 mg RTBID NEB Last administered on 08/03/19 07:28; Start 08/02/19 at 20:00 Albuterol/ Ipratropium (Duoneb) 3 ml RTQID NEB Last administered on 08/03/19 07:28; Start 08/02/19 at 16:00 Levothyroxine Sodium (Synthroid) 100 mcg DAILY06 PO Last administered on 08/03/19 05:47; Start 08/03/19 at 06:00 Fluticasone Propionate (Flonase) 2 spray DAILY NS Last administered on 08/03/19 08:39; Start 08/03/19 at 09:00 Nicotine (Nicoderm Cq 21mg) 1 patch PRN DAILY PRN TD NICOTINE W/DRAWAL; Start 08/02/19 at 13:56 Levofloxacin/ Dextrose 50 ml @ 50 mls/hr Q24H IV Last administered on 08/02/19 18:04; Start 08/02/19 at 16:00 Lactobacillus Rhamnosus (Culturelle) 1 cap BID PO Last administered on 08/03/19 08:38; Start 08/02/19 at 21:00 Oxycodone/ Acetaminophen (Percocet 5/325) 1 tab PRN Q6HRS PRN PO PAIN Last administered on 5/5/20at 00:19; Start 08/02/19 at 17:30 Furosemide (Lasix) 40 mg BID94 IVP Last administered on 08/03/19at 09:16; Start 08/03/19 at 09:00 Active Scripts Active Doxycycline Hyclate 100 Mg Tablet 1 Tab PO BID Budesonide 0.5 Mg/2 Ml Ampul.neb 0.5 Mg NEB RTBID 30 Days Amiodarone Hcl 200 Mg Tablet 200 Mg PO DAILY 30 Days Proair Hfa (Albuterol Sulfate) 8.5 Gm Hfa.aer.ad 2.5 Mg NEB PRN Q4HRS PRN 30 Days Duoneb 0.5-3(2.5) Mg/3 Ml (Albuterol/Ipratropium) 3 Ml Ampul.neb 3 Ml NEB RTQID 30 Days Eliquis (Apixaban) 2.5 Mg Tablet 2.5 Mg PO BID 60 Days Metoprolol Tartrate 25 Mg Tablet 25 Mg PO BID [Nicotine 21MG] 1 PATCH Patch 1 Patch TD PRN DAILY PRN MDD 1 Tessalon Perle (Benzonatate) 100 Mg Capsule 1 Cap PO TID Flonase Allergy Relief (Fluticasone Propionate) 9.9 Ml [place].susp 2 Sprays NS DAILY Reported Levothyroxine Sodium 100 Mcg Tablet 1 Tab PO DAILY Furosemide 40 Mg Tablet 40 Mg PO BID Klor-Con M20 (Potassium Chloride) 20 Meq Tab.er.prt 20 Meq PO BID NEW PRESCRIPTIONS Allergies Allergies: Coded Allergies: Penicillins (Verified Allergy, Severe, anaphylaxis, 06/10/19) Tolerates merrem ROS Review of System Per HPI, rest negative Physical Exam Physical Exam GEN NAD HEENT: OM moist Neck supple LUNGS: diminished bases, non labored Heart: irregularly irregular (AFIB- rate controlled) Abdomen: Soft N/T Extremities: 2-+ bilateral LE edema Neurology: alert, oriented, follow commands No alex Skin No rash Vital Signs Vital Signs Date Time Temp Pulse Resp B/P (MAP) Pulse Ox O2 Delivery O2 Flow Rate FiO2 08/03/19 08:38 92 133/83 08/03/19 07:29 100 Nasal Cannula 2.0 08/03/19 07:00 97.8 20 97.8 Assessment & Plan CKD stage 3 - baseline Cr UA unremarkable, Renal US- echogenecity + Supportive care, avoid nephrotoxins, Monitor Hx of NEGRITO recently , renal funtion appears to be at baseline this hospitalization HyperKalemia- Mild at presentation- resolved Anemia - chronic Acute on chronic respiratory failure- multifactorial with a/c systolic CHF, COPD, COVID recently negative. Acute on chronic diastolic/systolic CHF- On IV Diuretics, Cardiology managing NICM; LVEF 40-45% Recent cath without obstructive disease PAFIB/flutter; presently AFIB/flutter Severe pulmonary HTN/cor pulmonale COPD Labs Labs Laboratory Tests Test 08/01/19 23:05 08/01/19 23:30 08/03/19 02:50 White Blood Count 6.2 x10^3/uL (4.0-11.0) 5.9 x10^3/uL (4.0-11.0) Red Blood Count 3.19 x10^6/uL (3.50-5.40) 2.86 x10^6/uL (3.50-5.40) Hemoglobin 10.3 g/dL (12.0-15.5) 9.3 g/dL (12.0-15.5) Hematocrit 32.9 % (36.0-47.0) 29.0 % (36.0-47.0) Mean Corpuscular Volume 103 fL (79-100) 101 fL (79-100) Mean Corpuscular Hemoglobin 32 pg (25-35) 32 pg (25-35) Mean Corpuscular Hemoglobin Concent 31 g/dL (31-37) 32 g/dL (31-37) Red Cell Distribution Width 18.4 % (11.5-14.5) 18.2 % (11.5-14.5) Platelet Count 300 x10^3/uL (140-400) 239 x10^3/uL (140-400) Neutrophils (%) (Auto) 63 % (31-73) 71 % (31-73) Lymphocytes (%) (Auto) 24 % (24-48) 19 % (24-48) Monocytes (%) (Auto) 11 % (0-9) 9 % (0-9) Eosinophils (%) (Auto) 1 % (0-3) 0 % (0-3) Basophils (%) (Auto) 1 % (0-3) 1 % (0-3) Neutrophils # (Auto) 3.9 x10^3/uL (1.8-7.7) 4.2 x10^3/uL (1.8-7.7) Lymphocytes # (Auto) 1.5 x10^3/uL (1.0-4.8) 1.1 x10^3/uL (1.0-4.8) Monocytes # (Auto) 0.7 x10^3/uL (0.0-1.1) 0.5 x10^3/uL (0.0-1.1) Eosinophils # (Auto) 0.0 x10^3/uL (0.0-0.7) 0.0 x10^3/uL (0.0-0.7) Basophils # (Auto) 0.0 x10^3/uL (0.0-0.2) 0.1 x10^3/uL (0.0-0.2) Sodium Level 138 mmol/L (136-145) 137 mmol/L (136-145) Potassium Level 5.2 mmol/L (3.5-5.1) 4.5 mmol/L (3.5-5.1) Chloride Level 98 mmol/L (98-107) 97 mmol/L (98-107) Carbon Dioxide Level 35 mmol/L (21-32) 38 mmol/L (21-32) Anion Gap 5 (6-14) 2 (6-14) Blood Urea Nitrogen 29 mg/dL (7-20) 29 mg/dL (7-20) Creatinine 1.4 mg/dL (0.6-1.0) 1.4 mg/dL (0.6-1.0) Estimated GFR (Cockcroft-Gault) 45.8 45.8 BUN/Creatinine Ratio 21 (6-20) 21 (6-20) Glucose Level 125 mg/dL (70-99) 80 mg/dL (70-99) Calcium Level 9.0 mg/dL (8.5-10.1) 8.5 mg/dL (8.5-10.1) Total Bilirubin 0.4 mg/dL (0.2-1.0) 0.4 mg/dL (0.2-1.0) Aspartate Amino Transf (AST/SGOT) 58 U/L (15-37) 29 U/L (15-37) Alanine Aminotransferase (ALT/SGPT) 39 U/L (14-59) 42 U/L (14-59) Alkaline Phosphatase 77 U/L (46-116) 59 U/L (46-116) Troponin I Quantitative 0.022 ng/mL (0.000-0.055) AT-Zyc-P-Type Natriuretic Peptide 71069 pg/mL (0-124) Total Protein 7.1 g/dL (6.4-8.2) 6.2 g/dL (6.4-8.2) Albumin 3.2 g/dL (3.4-5.0) 2.8 g/dL (3.4-5.0) Albumin/Globulin Ratio 0.8 (1.0-1.7) 0.8 (1.0-1.7) Urine Collection Type U cath Urine Color Yellow Urine Clarity Clear Urine pH 7.0 (<5.0-8.0) Urine Specific [place] 1.015 (1.000-1.030) Urine Protein 30 mg/dL (NEG-TRACE) Urine Glucose (UA) Negative mg/dL (NEG) Urine Ketones (Stick) Negative mg/dL (NEG) Urine Blood Negative (NEG) Urine Nitrite Negative (NEG) Urine Bilirubin Negative (NEG) Urine Urobilinogen Dipstick 0.2 mg/dL (0.2 mg/dL) Urine Leukocyte Esterase Trace (NEG) Urine RBC Occ /HPF (0-2) Urine WBC Occ /HPF (0-4) Urine Squamous Epithelial Cells Many /LPF Urine Bacteria 0 /HPF (0-FEW) Urine Hyaline Casts Many /HPF Urine Mucus Marked /LPF Laboratory Tests Test 08/03/19 02:50 White Blood Count 5.9 x10^3/uL (4.0-11.0) Red Blood Count 2.86 x10^6/uL (3.50-5.40) Hemoglobin 9.3 g/dL (12.0-15.5) Hematocrit 29.0 % (36.0-47.0) Mean Corpuscular Volume 101 fL (79-100) Mean Corpuscular Hemoglobin 32 pg (25-35) Mean Corpuscular Hemoglobin Concent 32 g/dL (31-37) Red Cell Distribution Width 18.2 % (11.5-14.5) Platelet Count 239 x10^3/uL (140-400) Neutrophils (%) (Auto) 71 % (31-73) Lymphocytes (%) (Auto) 19 % (24-48) Monocytes (%) (Auto) 9 % (0-9) Eosinophils (%) (Auto) 0 % (0-3) Basophils (%) (Auto) 1 % (0-3) Neutrophils # (Auto) 4.2 x10^3/uL (1.8-7.7) Lymphocytes # (Auto) 1.1 x10^3/uL (1.0-4.8) Monocytes # (Auto) 0.5 x10^3/uL (0.0-1.1) Eosinophils # (Auto) 0.0 x10^3/uL (0.0-0.7) Basophils # (Auto) 0.1 x10^3/uL (0.0-0.2) Sodium Level 137 mmol/L (136-145) Potassium Level 4.5 mmol/L (3.5-5.1) Chloride Level 97 mmol/L (98-107) Carbon Dioxide Level 38 mmol/L (21-32) Anion Gap 2 (6-14) Blood Urea Nitrogen 29 mg/dL (7-20) Creatinine 1.4 mg/dL (0.6-1.0) Estimated GFR (Cockcroft-Gault) 45.8 BUN/Creatinine Ratio 21 (6-20) Glucose Level 80 mg/dL (70-99) Calcium Level 8.5 mg/dL (8.5-10.1) Total Bilirubin 0.4 mg/dL (0.2-1.0) Aspartate Amino Transf (AST/SGOT) 29 U/L (15-37) Alanine Aminotransferase (ALT/SGPT) 42 U/L (14-59) Alkaline Phosphatase 59 U/L (46-116) Total Protein 6.2 g/dL (6.4-8.2) Albumin 2.8 g/dL (3.4-5.0) Albumin/Globulin Ratio 0.8 (1.0-1.7) Review All relevant outside records, renal labs, imaging studies, telemetry/EKG's were reviewed. Images Images CXr-07/31 Stable cardiomegaly. Diffuse interstitial opacities are unchanged. Probable pulmonary vascular congestion. Moderate right and small left pleural effusions are similar. Bibasilar airspace opacities are unchanged.There is no pneumothorax. Bones appear stable. Renal US 07/24-- 1. Limited evaluation with absent visualization of the left kidney due to bowel gas and nonvisualization of the urinary bladder as well presumably due to collapse. 2. The right kidney measures 8 cm in length compared to 9.5 cm on the 04/04/2019 comparison but this difference is favored technical. Cortical echogenicity and thickness is essentially unchanged. No hydronephrosis is appreciated. ALTAGRACIA BLANTON MD August 03, 2019 09:52
[2019-08-03 11:00] VITALS: BP 141/63
--- NOTE | 2019-08-03 13:59 | PDOC ---
PROGRESS NOTES Chief Complaint Chief Complaint Acute on chronic respiratory failure secondary to multiple etiologies including congestive heart failure chronic in nature systolic dysfunction, underlying COPD, chronic kidney disease Acute exacerbation of chronic obstructive pulmonary disease Recently treated for HCAP, CKD stage III A- fib, PCN allergy Severe pulmonary hypertension with cor pulmonale Anemia of chronic disease Paroxysmal atrial fibrillation with history of being on anticoagulation Coronary artery disease Plan: Continue with diuresis as per investigations consultant Follow urinary output and urine function tests Continue anticoagulation No DASIA or Arps in light of her acute renal failure Continue supportive measures Grim prognosis with patient's family and daughter who is the POA want "everything done". Patient with multiple admissions throughout this year 10 since late 2019 so far quite poor prognosis and this is infringing certainly on her quality of life. Patient has been in hospice recently and is certainly appropriate to go back on hospice nevertheless there seems to be persistent in spite of family members who cannot understand the importance of quality of life and Ms Purcell's case will reassess in the am History of Present Illness History of Present Illness No acute events reported overnight, case discussed with nursing staff patient in no acute distress no complaints during my visit Vitals Vitals Vital Signs Date Time Temp Pulse Resp B/P (MAP) Pulse Ox O2 Delivery O2 Flow Rate FiO2 08/03/19 12:02 100 Nasal Cannula 2.0 08/03/19 11:00 97.6 89 20 141/63 (89) 97.6 Physical Exam Physical Exam HEENT: Neck Supple W Full Motion Chest: Symmetric LUNGS: Other (basilar crackles with faint wheeze) Heart: irregularly irregular (Atrial flutter) Abdomen: Soft N/T Extremities: Other (3+ bilateral LE edema ) Neurology: alert, oriented, follow command Lungs: Other Labs LABS Laboratory Tests Test 08/03/19 02:50 White Blood Count 5.9 x10^3/uL (4.0-11.0) Red Blood Count 2.86 x10^6/uL (3.50-5.40) Hemoglobin 9.3 g/dL (12.0-15.5) Hematocrit 29.0 % (36.0-47.0) Mean Corpuscular Volume 101 fL (79-100) Mean Corpuscular Hemoglobin 32 pg (25-35) Mean Corpuscular Hemoglobin Concent 32 g/dL (31-37) Red Cell Distribution Width 18.2 % (11.5-14.5) Platelet Count 239 x10^3/uL (140-400) Neutrophils (%) (Auto) 71 % (31-73) Lymphocytes (%) (Auto) 19 % (24-48) Monocytes (%) (Auto) 9 % (0-9) Eosinophils (%) (Auto) 0 % (0-3) Basophils (%) (Auto) 1 % (0-3) Neutrophils # (Auto) 4.2 x10^3/uL (1.8-7.7) Lymphocytes # (Auto) 1.1 x10^3/uL (1.0-4.8) Monocytes # (Auto) 0.5 x10^3/uL (0.0-1.1) Eosinophils # (Auto) 0.0 x10^3/uL (0.0-0.7) Basophils # (Auto) 0.1 x10^3/uL (0.0-0.2) Sodium Level 137 mmol/L (136-145) Potassium Level 4.5 mmol/L (3.5-5.1) Chloride Level 97 mmol/L (98-107) Carbon Dioxide Level 38 mmol/L (21-32) Anion Gap 2 (6-14) Blood Urea Nitrogen 29 mg/dL (7-20) Creatinine 1.4 mg/dL (0.6-1.0) Estimated GFR (Cockcroft-Gault) 45.8 BUN/Creatinine Ratio 21 (6-20) Glucose Level 80 mg/dL (70-99) Calcium Level 8.5 mg/dL (8.5-10.1) Total Bilirubin 0.4 mg/dL (0.2-1.0) Aspartate Amino Transf (AST/SGOT) 29 U/L (15-37) Alanine Aminotransferase (ALT/SGPT) 42 U/L (14-59) Alkaline Phosphatase 59 U/L (46-116) Total Protein 6.2 g/dL (6.4-8.2) Albumin 2.8 g/dL (3.4-5.0) Albumin/Globulin Ratio 0.8 (1.0-1.7) Review of Systems Review of Systems Pertinent as per HPI otherwise 14 point review of system is negative Assessment and Plan Assessmemt and Plan Problems Medical Problems: (1) CHF (congestive heart failure) Status: Acute Comment Review of Relevant I have reviewed the following items suad (where applicable) has been applied. Labs Laboratory Tests Test 08/01/19 23:05 08/01/19 23:30 08/03/19 02:50 White Blood Count 6.2 x10^3/uL (4.0-11.0) 5.9 x10^3/uL (4.0-11.0) Red Blood Count 3.19 x10^6/uL (3.50-5.40) 2.86 x10^6/uL (3.50-5.40) Hemoglobin 10.3 g/dL (12.0-15.5) 9.3 g/dL (12.0-15.5) Hematocrit 32.9 % (36.0-47.0) 29.0 % (36.0-47.0) Mean Corpuscular Volume 103 fL (79-100) 101 fL (79-100) Mean Corpuscular Hemoglobin 32 pg (25-35) 32 pg (25-35) Mean Corpuscular Hemoglobin Concent 31 g/dL (31-37) 32 g/dL (31-37) Red Cell Distribution Width 18.4 % (11.5-14.5) 18.2 % (11.5-14.5) Platelet Count 300 x10^3/uL (140-400) 239 x10^3/uL (140-400) Neutrophils (%) (Auto) 63 % (31-73) 71 % (31-73) Lymphocytes (%) (Auto) 24 % (24-48) 19 % (24-48) Monocytes (%) (Auto) 11 % (0-9) 9 % (0-9) Eosinophils (%) (Auto) 1 % (0-3) 0 % (0-3) Basophils (%) (Auto) 1 % (0-3) 1 % (0-3) Neutrophils # (Auto) 3.9 x10^3/uL (1.8-7.7) 4.2 x10^3/uL (1.8-7.7) Lymphocytes # (Auto) 1.5 x10^3/uL (1.0-4.8) 1.1 x10^3/uL (1.0-4.8) Monocytes # (Auto) 0.7 x10^3/uL (0.0-1.1) 0.5 x10^3/uL (0.0-1.1) Eosinophils # (Auto) 0.0 x10^3/uL (0.0-0.7) 0.0 x10^3/uL (0.0-0.7) Basophils # (Auto) 0.0 x10^3/uL (0.0-0.2) 0.1 x10^3/uL (0.0-0.2) Sodium Level 138 mmol/L (136-145) 137 mmol/L (136-145) Potassium Level 5.2 mmol/L (3.5-5.1) 4.5 mmol/L (3.5-5.1) Chloride Level 98 mmol/L (98-107) 97 mmol/L (98-107) Carbon Dioxide Level 35 mmol/L (21-32) 38 mmol/L (21-32) Anion Gap 5 (6-14) 2 (6-14) Blood Urea Nitrogen 29 mg/dL (7-20) 29 mg/dL (7-20) Creatinine 1.4 mg/dL (0.6-1.0) 1.4 mg/dL (0.6-1.0) Estimated GFR (Cockcroft-Gault) 45.8 45.8 BUN/Creatinine Ratio 21 (6-20) 21 (6-20) Glucose Level 125 mg/dL (70-99) 80 mg/dL (70-99) Calcium Level 9.0 mg/dL (8.5-10.1) 8.5 mg/dL (8.5-10.1) Total Bilirubin 0.4 mg/dL (0.2-1.0) 0.4 mg/dL (0.2-1.0) Aspartate Amino Transf (AST/SGOT) 58 U/L (15-37) 29 U/L (15-37) Alanine Aminotransferase (ALT/SGPT) 39 U/L (14-59) 42 U/L (14-59) Alkaline Phosphatase 77 U/L (46-116) 59 U/L (46-116) Troponin I Quantitative 0.022 ng/mL (0.000-0.055) XB-Smj-T-Type Natriuretic Peptide 80794 pg/mL (0-124) Total Protein 7.1 g/dL (6.4-8.2) 6.2 g/dL (6.4-8.2) Albumin 3.2 g/dL (3.4-5.0) 2.8 g/dL (3.4-5.0) Albumin/Globulin Ratio 0.8 (1.0-1.7) 0.8 (1.0-1.7) Urine Collection Type U cath Urine Color Yellow Urine Clarity Clear Urine pH 7.0 (<5.0-8.0) Urine Specific [place] 1.015 (1.000-1.030) Urine Protein 30 mg/dL (NEG-TRACE) Urine Glucose (UA) Negative mg/dL (NEG) Urine Ketones (Stick) Negative mg/dL (NEG) Urine Blood Negative (NEG) Urine Nitrite Negative (NEG) Urine Bilirubin Negative (NEG) Urine Urobilinogen Dipstick 0.2 mg/dL (0.2 mg/dL) Urine Leukocyte Esterase Trace (NEG) Urine RBC Occ /HPF (0-2) Urine WBC Occ /HPF (0-4) Urine Squamous Epithelial Cells Many /LPF Urine Bacteria 0 /HPF (0-FEW) Urine Hyaline Casts Many /HPF Urine Mucus Marked /LPF Laboratory Tests Test 08/03/19 02:50 White Blood Count 5.9 x10^3/uL (4.0-11.0) Red Blood Count 2.86 x10^6/uL (3.50-5.40) Hemoglobin 9.3 g/dL (12.0-15.5) Hematocrit 29.0 % (36.0-47.0) Mean Corpuscular Volume 101 fL (79-100) Mean Corpuscular Hemoglobin 32 pg (25-35) Mean Corpuscular Hemoglobin Concent 32 g/dL (31-37) Red Cell Distribution Width 18.2 % (11.5-14.5) Platelet Count 239 x10^3/uL (140-400) Neutrophils (%) (Auto) 71 % (31-73) Lymphocytes (%) (Auto) 19 % (24-48) Monocytes (%) (Auto) 9 % (0-9) Eosinophils (%) (Auto) 0 % (0-3) Basophils (%) (Auto) 1 % (0-3) Neutrophils # (Auto) 4.2 x10^3/uL (1.8-7.7) Lymphocytes # (Auto) 1.1 x10^3/uL (1.0-4.8) Monocytes # (Auto) 0.5 x10^3/uL (0.0-1.1) Eosinophils # (Auto) 0.0 x10^3/uL (0.0-0.7) Basophils # (Auto) 0.1 x10^3/uL (0.0-0.2) Sodium Level 137 mmol/L (136-145) Potassium Level 4.5 mmol/L (3.5-5.1) Chloride Level 97 mmol/L (98-107) Carbon Dioxide Level 38 mmol/L (21-32) Anion Gap 2 (6-14) Blood Urea Nitrogen 29 mg/dL (7-20) Creatinine 1.4 mg/dL (0.6-1.0) Estimated GFR (Cockcroft-Gault) 45.8 BUN/Creatinine Ratio 21 (6-20) Glucose Level 80 mg/dL (70-99) Calcium Level 8.5 mg/dL (8.5-10.1) Total Bilirubin 0.4 mg/dL (0.2-1.0) Aspartate Amino Transf (AST/SGOT) 29 U/L (15-37) Alanine Aminotransferase (ALT/SGPT) 42 U/L (14-59) Alkaline Phosphatase 59 U/L (46-116) Total Protein 6.2 g/dL (6.4-8.2) Albumin 2.8 g/dL (3.4-5.0) Albumin/Globulin Ratio 0.8 (1.0-1.7) Medications Current Medications Albuterol/ Ipratropium (Duoneb) 3 ml 1X ONCE NEB Last administered on 08/01/19at 23:57; Start 08/01/19 at 23:00; Stop 08/01/19 at 23:01; Status DC Ondansetron HCl (Zofran) 4 mg PRN Q8HRS PRN IV NAUSEA/VOMITING; Start 08/02/19 at 01:00; Stop 08/03/19 at 00:59; Status DC Morphine Sulfate (Morphine Sulfate) 2 mg PRN Q2HR PRN IV PAIN; Start 08/02/19 at 01:00; Stop 08/03/19 at 00:59; Status DC Furosemide (Lasix) 60 mg 1X ONCE IVP Last administered on 08/02/19 02:14; Start 08/02/19 at 01:30; Stop 08/02/19 at 01:31; Status DC Furosemide (Lasix) 40 mg 1X ONCE IVP Last administered on 08/02/19at 14:28; Start 08/02/19 at 13:00; Stop 08/02/19 at 13:01; Status DC Amiodarone HCl (Cordarone) 200 mg DAILY PO Last administered on 08/03/19 08:38; Start 08/03/19 at 09:00 Apixaban (Eliquis) 2.5 mg BID PO Last administered on 08/03/19 08:38; Start 08/02/19 at 21:00 Metoprolol Tartrate (Lopressor) 25 mg BID PO Last administered on 08/03/19 08:38; Start 08/02/19 at 21:00 Info (Anti-Coagulation Monitoring By Pharmacy) 1 each PRN DAILY PRN MC SEE COMM ENTS; Start 08/02/19 at 13:15 Albuterol Sulfate (Ventolin Neb Soln) 2.5 mg PRN Q4HRS PRN NEB SHORTNESS OF BREATH; Start 08/02/19 at 13:30 Benzonatate (Tessalon Perle) 100 mg TID PO Last administered on 08/03/19at 08:38; Start 08/02/19 at 14:30 Budesonide (Pulmicort) 0.5 mg RTBID NEB Last administered on 08/03/19at 07:28; Start 08/02/19 at 20:00 Albuterol/ Ipratropium (Duoneb) 3 ml RTQID NEB Last administered on 08/03/19at 12:01; Start 08/02/19 at 16:00 Levothyroxine Sodium (Synthroid) 100 mcg DAILY06 PO Last administered on 08/03/19 05:47; Start 08/03/19 at 06:00 Fluticasone Propionate (Flonase) 2 spray DAILY NS Last administered on 08/03/19at 08:39; Start 08/03/19 at 09:00 Nicotine (Nicoderm Cq 21mg) 1 patch PRN DAILY PRN TD NICOTINE W/DRAWAL; Start 08/02/19 at 13:56 Levofloxacin/ Dextrose 50 ml @ 50 mls/hr Q24H IV Last administered on 08/02/19at 18:04; Start 08/02/19 at 16:00 Lactobacillus Rhamnosus (Culturelle) 1 cap BID PO Last administered on 08/03/19at 08:38; Start 08/02/19 at 21:00 Oxycodone/ Acetaminophen (Percocet 5/325) 1 tab PRN Q6HRS PRN PO PAIN Last administered on 08/03/19at 00:19; Start 08/02/19 at 17:30 Furosemide (Lasix) 40 mg [id number] IVP Last administered on 08/03/19at 09:16; Start 08/03/19 at 09:00 Active Scripts Active Doxycycline Hyclate 100 Mg Tablet 1 Tab PO BID Budesonide 0.5 Mg/2 Ml Ampul.neb 0.5 Mg NEB RTBID 30 Days Amiodarone Hcl 200 Mg Tablet 200 Mg PO DAILY 30 Days Proair Hfa (Albuterol Sulfate) 8.5 Gm Hfa.aer.ad 2.5 Mg NEB PRN Q4HRS PRN 30 Days Duoneb 0.5-3(2.5) Mg/3 Ml (Albuterol/Ipratropium) 3 Ml Ampul.neb 3 Ml NEB RTQID 30 Days Eliquis (Apixaban) 2.5 Mg Tablet 2.5 Mg PO BID 60 Days Metoprolol Tartrate 25 Mg Tablet 25 Mg PO BID [Nicotine 21MG] 1 PATCH Patch 1 Patch TD PRN DAILY PRN MDD 1 Tessalon Perle (Benzonatate) 100 Mg Capsule 1 Cap PO TID Flonase Allergy Relief (Fluticasone Propionate) 9.9 Ml [place].susp 2 Sprays NS DAILY Reported Levothyroxine Sodium 100 Mcg Tablet 1 Tab PO DAILY Furosemide 40 Mg Tablet 40 Mg PO BID Klor-Con M20 (Potassium Chloride) 20 Meq Tab.er.prt 20 Meq PO BID NEW PRESCRIPTIONS Vitals/I & O Vital Sign - Last 24 Hours 08/02/19 08/02/19 08/02/19 08/02/19 15:00 17:03 19:43 19:44 Temp 98.1 98.1 Pulse 103 Resp 20 B/P (MAP) 133/78 (96) Pulse Ox 97 100 100 100 O2 Delivery Nasal Cannula Nasal Cannula Nasal Cannula Nasal Cannula O2 Flow Rate 2.0 2.0 2.0 2.0 08/02/19 08/02/19 08/02/19 08/02/19 19:48 20:00 20:43 23:03 Temp 98.6 97.7 98.6 97.7 Pulse 108 108 86 Resp 20 20 B/P (MAP) 116/69 (85) 116/69 118/60 (79) Pulse Ox 99 98 O2 Delivery Nasal Cannula Nasal Cannula Nasal Cannula O2 Flow Rate 2.0 2.0 2.0 08/03/19 08/03/19 08/03/19 08/03/19 03:10 07:00 07:29 08:00 Temp 97.4 97.8 97.4 97.8 Pulse 86 92 Resp 20 20 B/P (MAP) 127/68 (87) 133/83 (100) Pulse Ox 97 95 100 O2 Delivery Nasal Cannula Nasal Cannula Nasal Cannula Nasal Cannula O2 Flow Rate 2.0 2.0 2.0 2.0 08/03/19 08/03/19 08/03/19 08/03/19 08:38 08:38 11:00 12:02 Temp 97.6 97.6 Pulse 92 92 89 Resp 20 B/P (MAP) 133/83 133/83 141/63 (89) Pulse Ox 93 100 O2 Delivery Nasal Cannula Nasal Cannula O2 Flow Rate 2.0 2.0 Intake and Output0 08/02/19 08/02/19 08/03/19 14:59 22:59 06:59 Intake Total 0 ml 250 ml Balance 0 ml 250 ml CHENG BRUNO MD August 03, 2019 13:59
--- NOTE | 2019-08-03 14:16 | NUR ---
SS following up with discharge planning. SS reviewed pt chart and discussed with pt RN. SS currently awaiting PT/OT evaluations to determine discharge planning. SS received notification from [facility], ; fax [phone], stating that pt is not allowed back on there services. Pt's family not opposed to senior care unit if recommended. SS will continue to follow for discharge planning.
[2019-08-03 15:00] VITALS: BP 116/66
[2019-08-03 19:25] VITALS: BP 125/78
[2019-08-03 23:05] VITALS: BP 86/62
[2019-08-04] VITALS (11 sets, daily range): BP systolic 88–136; BP diastolic 58–74
[2019-08-04] MEDS: ALBUTEROL SULFATE 2.5 MG/3 ML NEBU. NEB PRN (00:30)
[2019-08-04] MEDS: LEVOTHYROXINE 100 MCG TABLET PO SCH (05:56)
[2019-08-04] MEDS: IPRATRPIUM/ALBUTEROL 0.5/2.5MG 3 ML NEBU. NEB SCH ×4 (07:53→19:52)
[2019-08-04] MEDS: BUDESONIDE 0.5 MG/2 ML NEBU. NEB SCH ×2 (07:53→19:52)
[2019-08-04] MEDS: BENZONATATE 100 MG CAPSULE. PO SCH ×3 (08:49→20:19)
[2019-08-04] MEDS: METOPROLOL TART IMMED RELEASE 25 MG TABLET. PO SCH ×2 (08:49→20:19)
[2019-08-04] MEDS: AMIODARONE HCL 200 MG TABLET. PO SCH (08:49)
[2019-08-04] MEDS: APIXABAN 2.5 MG TABLET. PO SCH ×2 (08:49→20:19)
[2019-08-04] MEDS: LACTOBACILLUS RHAMNOSUS GG 1 CAPSULE. PO SCH ×2 (08:49→20:18)
[2019-08-04] MEDS: FLUTICASONE 50MCG/NASAL SPRAY 16GM BOTTLE. NS SCH (08:49)
[2019-08-04] MEDS: FUROSEMIDE 40 MG/4 ML VIAL. IVP SCH ×2 (08:50→16:36)
--- NOTE | 2019-08-04 09:11 | PDOC ---
SUBJECTIVE ROS No complaints OBJECTIVE Vital Signs Vital Signs Date Time Temp Pulse Resp B/P (MAP) Pulse Ox O2 Delivery O2 Flow Rate FiO2 08/04/19 08:49 106 136/74 08/04/19 07:54 Nasal Cannula 2.0 08/04/19 07:00 97.2 22 97 97.2 I & 0 Intake and Output 08/04/19 07:00 Intake Total 1660 ml Balance 1660 ml Intake Oral 1660 ml # Voids 2 PHYSICAL EXAM Physical Exam GEN NAD HEENT: OM moist Neck supple LUNGS: diminished bases, non labored Heart: irregularly irregular (AFIB- rate controlled) Abdomen: Soft N/T Extremities: 2-+ bilateral LE edema Neurology: alert, oriented, follow commands No alex Skin No rash DIAGNOSIS/ASSESSMENT Assessment & Plan CKD stage 3 - baseline Cr UA unremarkable, Renal US- echogenecity + Supportive care, avoid nephrotoxins, Monitor Hx of NEGRITO recently , renal funtion appears to be at baseline this hospitalization HyperKalemia- Mild at presentation- resolved Hyponatremia - drop in Na, cardiac /Diuretics Anemia - chronic Acute on chronic respiratory failure- multifactorial with a/c systolic CHF, COPD, COVID recently negative. Acute on chronic diastolic/systolic CHF- On IV Diuretics, Cardiology managing NICM; LVEF 40-45% Recent cath without obstructive disease PAFIB/flutter; presently AFIB/flutter Severe pulmonary HTN/cor pulmonale COMMENT/RELEVANT DATA Meds Current Medications Medications (Trade) Dose Ordered Sig/Karen Start Time Stop Time Status Last Admin Dose Admin Albuterol Sulfate (Ventolin Neb Soln) 2.5 mg PRN Q4HRS PRN 08/02/19 13:30 08/04/19 00:30 2.5 MG Albuterol/ Ipratropium (Duoneb) 3 ml RTQID 08/02/19 16:00 08/04/19 07:53 3 ML Amiodarone HCl (Cordarone) 200 mg DAILY 08/03/19 09:00 08/04/19 08:49 200 MG Apixaban (Eliquis) 2.5 mg BID 08/02/19 21:00 08/04/19 08:49 2.5 MG Benzonatate (Tessalon Perle) 100 mg TID 08/02/19 14:30 08/04/19 08:49 100 MG Budesonide (Pulmicort) 0.5 mg RTBID 08/02/19 20:00 08/04/19 07:53 0.5 MG Fluticasone Propionate (Flonase) 2 spray DAILY 08/03/19 09:00 08/04/19 08:49 2 SPRAY Furosemide (Lasix) 40 mg BID94 08/03/19 09:00 08/04/19 08:50 40 MG Info (Anti-Coagulation Monitoring By Pharmacy) 1 each PRN DAILY PRN 08/02/19 13:15 Lactobacillus Rhamnosus (Culturelle) 1 cap BID 08/02/19 21:00 08/04/19 08:49 1 CAP Levofloxacin/ Dextrose 50 ml @ 50 mls/hr Q24H 08/02/19 16:00 08/03/19 16:10 50 MLS/HR Levothyroxine Sodium (Synthroid) 100 mcg DAILY06 08/03/19 06:00 08/04/19 05:56 100 MCG Metoprolol Tartrate (Lopressor) 25 mg BID 08/02/19 21:00 08/04/19 08:49 25 MG Morphine Sulfate (Morphine Sulfate) 2 mg PRN Q2HR PRN 08/02/19 01:00 08/03/19 00:59 DC Nicotine (Nicoderm Cq 21mg) 1 patch PRN DAILY PRN 08/02/19 13:56 Ondansetron HCl (Zofran) 4 mg PRN Q8HRS PRN 08/02/19 01:00 08/03/19 00:59 DC Oxycodone/ Acetaminophen (Percocet 5/325) 1 tab PRN Q6HRS PRN 08/02/19 17:30 08/03/19 20:33 1 TAB Results All relevant outside records, renal labs, imaging studies, telemetry/EKG's were reviewed. ALTAGRACIA BLANTON MD August 04, 2019 09:11
--- NOTE | 2019-08-04 09:12 | PDOC ---
MARLEEN CEBALLOS [employer] 08/04/19 0911: CARDIO Progress Notes Date and Time Date of Service 08/04/2019 Time of Evaluation 0830 Subjective Subjective: No Chest Pain, No shortness of breath, No Palpitations Vitals Vitals Vital Signs Date Time Temp Pulse Resp B/P (MAP) Pulse Ox O2 Delivery O2 Flow Rate FiO2 08/04/19 08:49 106 136/74 08/04/19 07:54 Nasal Cannula 2.0 08/04/19 07:00 97.2 22 97 97.2 Weight Weight [ ] Input and Output Intake and Output Intake and Output 08/04/19 07:00 Intake Total 1660 ml Balance 1660 ml Intake Oral 1660 ml # Voids 2 Microbiology Micro Microbiology 08/01/19 Urine Culture - Final, Complete 08/01/19 Urine Culture Result 1 (SUMMER) - Final, Complete Physical Exam HEENT: Neck Supple W Full Motion Chest: Symmetric LUNGS: Other (diminished throughout) Heart: irregularly irregular (Atrial flutter) Abdomen: Soft N/T Extremities: Other (3+ bilateral LE edema ) Neurology: alert, oriented, follow commands Assessment Assessment 1. Acute on chronic respiratory failure; multifactorial with a/c systolic CHF, AECOPD, NEGRITO/CKF, and possible PNA. COVID recently negative. 2. Acute on chronic diastolic/systolic CHF: potentially induced by RVR 3. NICM; LVEF 45% Recent cath without obstructive disease 3. PAFIB/flutter with RVR; presently flutter with controlled rate 90-110 4. CKD3 5. Severe pulmonary HTN/cor pulmonale 6. COPD with past tobaccoism Recommendations 1. Continue lasix therapy. PCXR today. BMP and Mg 2. Potential amiodarone failure. Adequately anticoagulated. Plan for CVN today, will discuss with pt and DPOA. Continue metoprolol 3. No ACEi with NEGRITO/renal disease/hyperkalemia 4. Eliquis for stroke prevention 5. Supportive care YOLA SAUCEDO MD 08/04/19 1538: CARDIO Progress Notes Assessment Assessment Patient seen and examined Agree with our nurse practitioners assessment and plan as above. Cardioversion scheduled for later today. MARLEEN CEBALLOS [employer] August 04, 2019 09:11 YOLA SAUCEDO MD August 04, 2019 15:38
[2019-08-04 09:19] LABS: BASO % 1 % (0-3); EOS % 0 % (0-3); HEMATOCRIT 31.9 % (36.0-47.0); HEMOGLOBIN 10.2 g/dL (12.0-15.5); LYMPH # 1.2 x10^3/uL (1.0-4.8); LYMPH % 21 % (24-48); MEAN CORPUSCULAR HEMOGLOBIN 33 pg (25-35); MEAN CORPUSCULAR HGB CONC 32 g/dL (31-37); MEAN CORPUSCULAR VOLUME 102 fL (79-100); MONO # 0.4 x10^3/uL (0.0-1.1); MONO % 8 % (0-9); NEUT # 3.8 x10^3/uL (1.8-7.7); NEUT % 70 % (31-73); PLATELET COUNT 229 x10^3/uL (140-400); RED BLOOD COUNT 3.13 x10^6/uL (3.50-5.40); RED CELL DISTRIBUTION WIDTH 18.4 % (11.5-14.5); WHITE BLOOD COUNT 5.5 x10^3/uL (4.0-11.0)
[2019-08-04 09:28] LABS: CALCIUM 9.2 mg/dL (8.5-10.1); CREATININE 1.5 mg/dL (0.6-1.0); GFR 42.3; POTASSIUM 4.4 mmol/L (3.5-5.1)
--- NOTE | 2019-08-04 10:49 | RAD ---
CHEST AP ONLY Clinical History: Congestive heart failure Technique: AP view of the chest was obtained at 08/04/2019 9:09 AM. Comparison: None. Findings: The heart is moderately enlarged. The pulmonary vessels are borderline enlarged and slightly congested. There is density in the lung bases right worse than left and density in the costophrenic angles and along the minor fissure. Impression: Moderate cardiomegaly and moderate CHF with a small right effusion and mild left effusion. This appears similar to the prior study. Electronically signed by: Dave Aponte III, MD (08/04/2019 10:46 AM) [id number]
[2019-08-04] MEDS ORDERED: MAGNESIUM SULFATE 2GM 50 ML IV ONE (11:00)
[2019-08-04] MEDS ORDERED: 0.9 % SODIUM CHLORIDE 10 ML DISP.SYRIN. IV PRN (11:00)
[2019-08-04] MEDS ORDERED: PROPOFOL 10 MG/ML (20ML) VIAL. IV ONE (13:26)
[2019-08-04] MEDS ORDERED: IV NORMAL SALINE 1000ML BAG 1,000 ML IV ONE (14:00)
[2019-08-04] MEDS ORDERED: ATROPINE 1 MG/10 ML DISP.SYRINGE. ONE (14:21)
--- NOTE | 2019-08-04 14:49 | EKG ---
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
--- NOTE | 2019-08-04 16:43 | PDOC ---
PROGRESS NOTES Chief Complaint Chief Complaint Acute on chronic respiratory failure secondary to multiple etiologies including congestive heart failure chronic in nature systolic dysfunction, underlying COPD, chronic kidney disease Acute exacerbation of chronic obstructive pulmonary disease Recently treated for HCAP, CKD stage III A- fib, PCN allergy Severe pulmonary hypertension with cor pulmonale Anemia of chronic disease Paroxysmal atrial fibrillation with history of being on anticoagulation Coronary artery disease Plan: Continue with diuresis as per health management consultant cardioversioin later in the day Follow urinary output and urine function tests Continue anticoagulation No DASIA or Arps in light of her acute renal failure Continue supportive measures Grim prognosis with patient's family and daughter who is the POA want "everything done". Patient with multiple admissions throughout this year 10 since late 2019 so far quite poor prognosis and this is infringing certainly on her quality of life. Patient has been in hospice recently and is certainly appropriate to go back on hospice nevertheless there seems to be persistent in spite of family members who cannot understand the importance of quality of life and Ms Purcell's case will reassess in the am History of Present Illness History of Present Illness No acute events reported overnight, case discussed with nursing staff patient in no acute distress no complaints during my visit Vitals Vitals Vital Signs Date Time Temp Pulse Resp B/P (MAP) Pulse Ox O2 Delivery O2 Flow Rate FiO2 08/04/19 16:00 Nasal Cannula 2.0 08/04/19 15:16 65 98/60 (73) 08/04/19 14:57 97.5 15 97 97.5 Physical Exam Physical Exam HEENT: Neck Supple W Full Motion Chest: Symmetric LUNGS: Other (basilar crackles with faint wheeze) Heart: irregularly irregular (Atrial flutter) Abdomen: Soft N/T Extremities: Other (3+ bilateral LE edema ) Neurology: alert, oriented, follow command Lungs: Other Labs LABS Laboratory Tests Test 08/04/19 09:00 White Blood Count 5.5 x10^3/uL (4.0-11.0) Red Blood Count 3.13 x10^6/uL (3.50-5.40) Hemoglobin 10.2 g/dL (12.0-15.5) Hematocrit 31.9 % (36.0-47.0) Mean Corpuscular Volume 102 fL (79-100) Mean Corpuscular Hemoglobin 33 pg (25-35) Mean Corpuscular Hemoglobin Concent 32 g/dL (31-37) Red Cell Distribution Width 18.4 % (11.5-14.5) Platelet Count 229 x10^3/uL (140-400) Neutrophils (%) (Auto) 70 % (31-73) Lymphocytes (%) (Auto) 21 % (24-48) Monocytes (%) (Auto) 8 % (0-9) Eosinophils (%) (Auto) 0 % (0-3) Basophils (%) (Auto) 1 % (0-3) Neutrophils # (Auto) 3.8 x10^3/uL (1.8-7.7) Lymphocytes # (Auto) 1.2 x10^3/uL (1.0-4.8) Monocytes # (Auto) 0.4 x10^3/uL (0.0-1.1) Eosinophils # (Auto) 0.0 x10^3/uL (0.0-0.7) Basophils # (Auto) 0.0 x10^3/uL (0.0-0.2) Sodium Level 132 mmol/L (136-145) Potassium Level 4.4 mmol/L (3.5-5.1) Chloride Level 93 mmol/L (98-107) Carbon Dioxide Level 35 mmol/L (21-32) Anion Gap 4 (6-14) Blood Urea Nitrogen 26 mg/dL (7-20) Creatinine 1.5 mg/dL (0.6-1.0) Estimated GFR (Cockcroft-Gault) 42.3 Glucose Level 101 mg/dL (70-99) Calcium Level 9.2 mg/dL (8.5-10.1) Magnesium Level 1.5 mg/dL (1.8-2.4) Assessment and Plan Assessmemt and Plan Problems Medical Problems: (1) CHF (congestive heart failure) Status: Acute Comment Review of Relevant I have reviewed the following items suad (where applicable) has been applied. Labs Laboratory Tests Test 08/03/19 02:50 08/04/19 09:00 White Blood Count 5.9 x10^3/uL (4.0-11.0) 5.5 x10^3/uL (4.0-11.0) Red Blood Count 2.86 x10^6/uL (3.50-5.40) 3.13 x10^6/uL (3.50-5.40) Hemoglobin 9.3 g/dL (12.0-15.5) 10.2 g/dL (12.0-15.5) Hematocrit 29.0 % (36.0-47.0) 31.9 % (36.0-47.0) Mean Corpuscular Volume 101 fL (79-100) 102 fL (79-100) Mean Corpuscular Hemoglobin 32 pg (25-35) 33 pg (25-35) Mean Corpuscular Hemoglobin Concent 32 g/dL (31-37) 32 g/dL (31-37) Red Cell Distribution Width 18.2 % (11.5-14.5) 18.4 % (11.5-14.5) Platelet Count 239 x10^3/uL (140-400) 229 x10^3/uL (140-400) Neutrophils (%) (Auto) 71 % (31-73) 70 % (31-73) Lymphocytes (%) (Auto) 19 % (24-48) 21 % (24-48) Monocytes (%) (Auto) 9 % (0-9) 8 % (0-9) Eosinophils (%) (Auto) 0 % (0-3) 0 % (0-3) Basophils (%) (Auto) 1 % (0-3) 1 % (0-3) Neutrophils # (Auto) 4.2 x10^3/uL (1.8-7.7) 3.8 x10^3/uL (1.8-7.7) Lymphocytes # (Auto) 1.1 x10^3/uL (1.0-4.8) 1.2 x10^3/uL (1.0-4.8) Monocytes # (Auto) 0.5 x10^3/uL (0.0-1.1) 0.4 x10^3/uL (0.0-1.1) Eosinophils # (Auto) 0.0 x10^3/uL (0.0-0.7) 0.0 x10^3/uL (0.0-0.7) Basophils # (Auto) 0.1 x10^3/uL (0.0-0.2) 0.0 x10^3/uL (0.0-0.2) Sodium Level 137 mmol/L (136-145) 132 mmol/L (136-145) Potassium Level 4.5 mmol/L (3.5-5.1) 4.4 mmol/L (3.5-5.1) Chloride Level 97 mmol/L (98-107) 93 mmol/L (98-107) Carbon Dioxide Level 38 mmol/L (21-32) 35 mmol/L (21-32) Anion Gap 2 (6-14) 4 (6-14) Blood Urea Nitrogen 29 mg/dL (7-20) 26 mg/dL (7-20) Creatinine 1.4 mg/dL (0.6-1.0) 1.5 mg/dL (0.6-1.0) Estimated GFR (Cockcroft-Gault) 45.8 42.3 BUN/Creatinine Ratio 21 (6-20) Glucose Level 80 mg/dL (70-99) 101 mg/dL (70-99) Calcium Level 8.5 mg/dL (8.5-10.1) 9.2 mg/dL (8.5-10.1) Total Bilirubin 0.4 mg/dL (0.2-1.0) Aspartate Amino Transf (AST/SGOT) 29 U/L (15-37) Alanine Aminotransferase (ALT/SGPT) 42 U/L (14-59) Alkaline Phosphatase 59 U/L (46-116) Total Protein 6.2 g/dL (6.4-8.2) Albumin 2.8 g/dL (3.4-5.0) Albumin/Globulin Ratio 0.8 (1.0-1.7) Magnesium Level 1.5 mg/dL (1.8-2.4) Laboratory Tests Test 08/04/19 09:00 White Blood Count 5.5 x10^3/uL (4.0-11.0) Red Blood Count 3.13 x10^6/uL (3.50-5.40) Hemoglobin 10.2 g/dL (12.0-15.5) Hematocrit 31.9 % (36.0-47.0) Mean Corpuscular Volume 102 fL (79-100) Mean Corpuscular Hemoglobin 33 pg (25-35) Mean Corpuscular Hemoglobin Concent 32 g/dL (31-37) Red Cell Distribution Width 18.4 % (11.5-14.5) Platelet Count 229 x10^3/uL (140-400) Neutrophils (%) (Auto) 70 % (31-73) Lymphocytes (%) (Auto) 21 % (24-48) Monocytes (%) (Auto) 8 % (0-9) Eosinophils (%) (Auto) 0 % (0-3) Basophils (%) (Auto) 1 % (0-3) Neutrophils # (Auto) 3.8 x10^3/uL (1.8-7.7) Lymphocytes # (Auto) 1.2 x10^3/uL (1.0-4.8) Monocytes # (Auto) 0.4 x10^3/uL (0.0-1.1) Eosinophils # (Auto) 0.0 x10^3/uL (0.0-0.7) Basophils # (Auto) 0.0 x10^3/uL (0.0-0.2) Sodium Level 132 mmol/L (136-145) Potassium Level 4.4 mmol/L (3.5-5.1) Chloride Level 93 mmol/L (98-107) Carbon Dioxide Level 35 mmol/L (21-32) Anion Gap 4 (6-14) Blood Urea Nitrogen 26 mg/dL (7-20) Creatinine 1.5 mg/dL (0.6-1.0) Estimated GFR (Cockcroft-Gault) 42.3 Glucose Level 101 mg/dL (70-99) Calcium Level 9.2 mg/dL (8.5-10.1) Magnesium Level 1.5 mg/dL (1.8-2.4) Microbiology 08/01/19 Urine Culture - Final, Complete 08/01/19 Urine Culture Result 1 (SUMMER) - Final, Complete Medications Current Medications Albuterol/ Ipratropium (Duoneb) 3 ml 1X ONCE NEB Last administered on 08/01/19at 23:57; Start 08/01/19 at 23:00; Stop 08/01/19 at 23:01; Status DC Ondansetron HCl (Zofran) 4 mg PRN Q8HRS PRN IV NAUSEA/VOMITING; Start 08/02/19 at 01:00; Stop 08/03/19 at 00:59; Status DC Morphine Sulfate (Morphine Sulfate) 2 mg PRN Q2HR PRN IV PAIN; Start 08/02/19 at 01:00; Stop 08/03/19 at 00:59; Status DC Furosemide (Lasix) 60 mg 1X ONCE IVP Last administered on 08/02/19at 02:14; Start 08/02/19 at 01:30; Stop 08/02/19 at 01:31; Status DC Furosemide (Lasix) 40 mg 1X ONCE IVP Last administered on 08/02/19at 14:28; Start 08/02/19 at 13:00; Stop 08/02/19 at 13:01; Status DC Amiodarone HCl (Cordarone) 200 mg DAILY PO Last administered on 08/04/19 08:49; Start 08/03/19 at 09:00 Apixaban (Eliquis) 2.5 mg BID PO Last administered on 08/04/19 08:49; Start 08/02/19 at 21:00 Metoprolol Tartrate (Lopressor) 25 mg BID PO Last administered on 08/04/19 08:49; Start 08/02/19 at 21:00 Info (Anti-Coagulation Monitoring By Pharmacy) 1 each PRN DAILY PRN MC SEE COMMENTS Last administered on 08/04/19 14:20; Start 08/02/19 at 13:15 Albuterol Sulfate (Ventolin Neb Soln) 2.5 mg PRN Q4HRS PRN NEB SHORTNESS OF BREATH Last administered on 08/04/19at 00:30; Start 08/02/19 at 13:30 Benzonatate (Tessalon Perle) 100 mg TID PO Last administered on 08/04/19 08:49; Start 08/02/19 at 14:30 Budesonide (Pulmicort) 0.5 mg RTBID NEB Last administered on 08/04/19 07:53; Start 08/02/19 at 20:00 Albuterol/ Ipratropium (Duoneb) 3 ml RTQID NEB Last administered on 08/04/19 15:59; Start 08/02/19 at 16:00 Levothyroxine Sodium (Synthroid) 100 mcg DAILY06 PO Last administered on 08/04/19 05:56; Start 08/03/19 at 06:00 Fluticasone Propionate (Flonase) 2 spray DAILY NS Last administered on 08/04/19at 08:49; Start 08/03/19 at 09:00 Nicotine (Nicoderm Cq 21mg) 1 patch PRN DAILY PRN TD NICOTINE W/DRAWAL; Start 08/02/19 at 13:56 Levofloxacin/ Dextrose 50 ml @ 50 mls/hr Q24H IV Last administered on 08/04/19 16:36; Start 08/02/19 at 16:00 Lactobacillus Rhamnosus (Culturelle) 1 cap BID PO Last administered on 08/04/19at 08:49; Start 08/02/19 at 21:00 Oxycodone/ Acetaminophen (Percocet 5/325) 1 tab PRN Q6HRS PRN PO PAIN Last admi nistered on 08/03/19at 20:33; Start 08/02/19 at 17:30 Furosemide (Lasix) 40 mg BID94 IVP Last administered on 08/04/19 16:36; Start 08/03/19 at 09:00 Magnesium Sulfate 50 ml @ 25 mls/hr 1X ONCE IV Last administered on 08/04/19at 11:39; Start 08/04/19 at 11:00; Stop 08/04/19 at 12:59; Status DC Sodium Chloride (Normal Saline Flush) 10 ml QSHIFT PRN IV AFTER MEDS AND BLOOD DRAWS; Start 08/04/19 at 11:00 Propofol (Diprivan) 200 mg STK-MED ONCE IV ; Start 08/04/19 at 13:26; Stop 08/04/19 at 13:26; Status DC Sodium Chloride 1,000 ml @ 1,000 mls/hr 1X ONCE IV Last administered on 08/04/19at 14:00; Start 08/04/19 at 14:00; Stop 08/04/19 at 14:59; Status DC Atropine Sulfate (ATROPINE 1mg SYRINGE) 1 mg STK-MED ONCE .ROUTE ; Start 08/04/19 at 14:21; Stop 08/04/19 at 14:21; Status DC Active Scripts Active Doxycycline Hyclate 100 Mg Tablet 1 Tab PO BID Budesonide 0.5 Mg/2 Ml Ampul.neb 0.5 Mg NEB RTBID 30 Days Amiodarone Hcl 200 Mg Tablet 200 Mg PO DAILY 30 Days Proair Hfa (Albuterol Sulfate) 8.5 Gm Hfa.aer.ad 2.5 Mg NEB PRN Q4HRS PRN 30 Days Duoneb 0.5-3(2.5) Mg/3 Ml (Albuterol/Ipratropium) 3 Ml Ampul.neb 3 Ml NEB RTQID 30 Days Eliquis (Apixaban) 2.5 Mg Tablet 2.5 Mg PO BID 60 Days Metoprolol Tartrate 25 Mg Tablet 25 Mg PO BID [Nicotine 21MG] 1 PATCH Patch 1 Patch TD PRN DAILY PRN MDD 1 Tessalon Perle (Benzonatate) 100 Mg Capsule 1 Cap PO TID Flonase Allergy Relief (Fluticasone Propionate) 9.9 Ml [place].susp 2 Sprays NS DAILY Reported Levothyroxine Sodium 100 Mcg Tablet 1 Tab PO DAILY Furosemide 40 Mg Tablet 40 Mg PO BID Klor-Con M20 (Potassium Chloride) 20 Meq Tab.er.prt 20 Meq PO BID NEW PRESCRIPTIONS Vitals/I & O Vital Sign - Last 24 Hours 08/03/19 08/03/19 08/03/19 08/03/19 19:25 20:00 20:02 20:04 Temp 97.7 97.7 Pulse 108 Resp 22 B/P (MAP) 125/78 (94) Pulse Ox 98 100 100 O2 Delivery Nasal Cannula Nasal Cannula Nasal Cannula Nasal Cannula O2 Flow Rate 2.0 2.0 2.0 2.0 08/03/19 08/03/19 08/03/19 08/03/19 20:32 20:33 21:33 23:05 Temp 97.9 97.9 Pulse 108 101 Resp 20 B/P (MAP) 125/78 86/62 (70) Pulse Ox 100 100 O2 Delivery Nasal Cannula Nasal Cannula Nasal Cannula O2 Flow Rate 2.0 2.0 2.0 08/04/19 08/04/19 08/04/19 08/04/19 00:30 03:15 07:00 07:54 Temp 98.1 97.2 98.1 97.2 Pulse 95 106 Resp 22 22 B/P (MAP) 130/68 (88) 136/74 (94) Pulse Ox 100 99 97 O2 Delivery Nasal Cannula Nasal Cannula Nasal Cannula Nasal Cannula O2 Flow Rate 2.0 2.0 2.0 2.0 08/04/19 08/04/19 08/04/19 08/04/19 08:00 08:49 08:49 10:41 Temp 97.5 97.5 Pulse 106 106 103 Resp 22 B/P (MAP) 136/74 136/74 107/62 (77) Pulse Ox 96 O2 Delivery Nasal Cannula Nasal Cannula O2 Flow Rate 2.0 2.0 08/04/19 08/04/19 08/04/19 08/04/19 13:36 14:27 14:27 14:42 Temp 97.5 97.5 97.5 97.5 97.5 97.5 Pulse 103 60 56 Resp 15 15 15 B/P (MAP) 148/80 88/59 88/48 Pulse Ox 96 96 97 O2 Delivery Nasal Cannula Nasal Cannula Nasal Cannula Nasal Cannula O2 Flow Rate 2.0 2.0 2.0 2.0 08/04/19 08/04/19 08/04/19 14:57 15:16 16:00 Temp 97.5 97.5 Pulse 56 65 Resp 15 B/P (MAP) 105/45 98/60 (73) Pulse Ox 97 O2 Delivery Nasal Cannula Nasal Cannula O2 Flow Rate 2.0 2.0 Intake and Output 08/03/19 08/03/19 08/04/19 15:00 23:00 07:00 Intake Total 180 ml 180 ml 1300 ml Balance 180 ml 180 ml 1300 ml Nutrition Consultation Dietary Evaluation: Recommendations by RD: Dietary education by RD, Increase Calorie Intake, Protein supplementation Comments: REC continue w/cardiac diet, add ground meats per pt request REC Ensure (strawberry) TID [place] food preferences and provide snacks as requested Expected Outcomes/Goals: PO intake to meet >75% est needs Malnutrition Findings: Body Fat Depletion (Non Severe: Mild Depletion Weight Status: Appropriate CHENG BRUNO MD August 04, 2019 16:43
--- NOTE | 2019-08-04 16:53 | PDOC4 ---
PROCEDURE Procedure Cardioversion. The patient has a history of atrial flutter. Risks and benefits of cardioversion were discussed with the patient and her significant other. They have agreed to proceed with the attempted cardioversion. The anesthesiology service reviewed the patient and provided appropriate level of his anesthesia. The patient was cardioverted from atrial flutter to a sinus rhythm with 200 J of synchronized discharge. Patient remained in a sinus rhythm. She did have episodes of sinus bradycardia 3 to 5 minutes post cardioversion but this resolved and she resumed a sinus rhythm a rate of 68 bpm. Successful cardioversion of atrial flutter to sinus rhythm. YOLA SAUCEDO MD August 04, 2019 16:53
[2019-08-04] MEDS: DOCUSATE SODIUM 100 MG CAPSULE. PO SCH (20:18)
[2019-08-04] MEDS: TEMAZEPAM 15 MG CAPSULE PO PRN (20:19)
[2019-08-04] MEDS: oxyCODONE/APAP 5/325 1 TAB TABLET PO PRN (20:20)
[2019-08-05 02:26] VITALS: BP 86/59
[2019-08-05] MEDS: LEVOTHYROXINE 100 MCG TABLET PO SCH (06:03)
[2019-08-05 07:00] VITALS: BP 129/66
[2019-08-05] MEDS: IPRATRPIUM/ALBUTEROL 0.5/2.5MG 3 ML NEBU. NEB SCH ×4 (07:54→20:00)
[2019-08-05] MEDS: BUDESONIDE 0.5 MG/2 ML NEBU. NEB SCH ×2 (07:55→20:00)
--- NOTE | 2019-08-05 08:19 | PDOC ---
PROGRESS NOTES Chief Complaint Chief Complaint IMPRESSION Acute on chronic respiratory failure secondary to multiple etiologies including congestive heart failure chronic in nature systolic dysfunction, underlying COPD, chronic kidney disease Acute exacerbation of chronic obstructive pulmonary disease Recently treated for HCAP, CKD stage III A- fib, PCN allergy Severe pulmonary hypertension with cor pulmonale Moderate pulmonary hypertension with elevated left ventricular and right ventriclular filling pressures recent cath 04/19 No evidence of intracardial shunt Anemia of chronic disease Paroxysmal atrial fibrillation with history of being on anticoagulation NICM; LVEF 45% Recent cath without obstructive disease Coronary artery disease HYPOMAGNESEMIA Plan: replete mg Continue with diuresis as per sap payroll consultant cardioversioin 08/03 Follow urinary output and urine function tests Continue anticoagulation No DASIA or Arps in light of her acute renal failure Continue supportive measures Grim prognosis with patient's family and daughter who is the POA want "everything done". Patient with multiple admissions throughout this year 10 since late 2018 so far quite poor prognosis and this is infringing certainly on her quality of life. Patient has been in hospice recently and is certainly appropriate to go back on hospice nevertheless there seems to be persistent in spite of family members who cannot understand the importance of quality of life and Ms Purcell's case 37 min pt exam, chart review, > 50% of time spent with exam, chart review, pt care coordination History of Present Illness History of Present Illness No acute events reported overnight, case discussed with nursing staff patient in no acute distress no complaints during my visit Vitals Vitals Vital Signs Date Time Temp Pulse Resp B/P (MAP) Pulse Ox O2 Delivery O2 Flow Rate FiO2 08/05/19 08:01 95 Nasal Cannula 2.0 08/05/19 02:26 97.3 67 86/59 (68) 97.3 08/04/19 14:57 15 Physical Exam Physical Exam HEENT: Neck Supple W Full Motion Chest: Symmetric LUNGS: Other (basilar crackles with faint wheeze) Heart: irregularly irregular (Atrial flutter) Abdomen: Soft N/T Extremities: Other (3+ bilateral LE edema ) Neurology: alert, oriented, follow command Lungs: Other Labs LABS Technologist: Mindi Ugarte Nurse: Vanessa Srinivasan RN Procedure(s) performed: Right and left heart catheterization and selective coronary angiography. heart failure class 4 fl time: 7.1 min dose: 19 gy/cm2 contrast: 51 ml moderate sedation: 35 mins INDICATION The indication(s) include : Recurrent acute on chronic combined systolic and diastolic heart failure, pulmonary hypertension. CSHA Clinical Frailty Scale CSHA Clinical Frailty Scale: Very Severely Frail Heart Failure Heart Failure: Yes If Yes, Newly Diagnosed: No If Yes, HF Type: Systolic PROCEDURE NARRATIVE After explaining the risks, benefits and alternative options, informed consent was obtained from patient. Patient was brought to the cardiac Group Exercise Manager and her right groin was prepped and draped in the usual fashion. 20 mL of 2% lidocaine was infiltrated into the skin and subcutaneous tissues for local anesthesia. Arterial and venous accesses were obtained in the right common femoral artery and vein respectively and 6 and 8 [place] sheaths inserted. A 7.5 [place] Boyce- Jacob catheter was advanced under fluoroscopy guidance and intracardiac pressures, oxygen saturations measured. Subsequently, 6 [place] JL4 and 6 [place] JR4 catheters were used to perform selective angiography of the left and right coronary arteries. LVEDP and transaortic gradients were measured. Patient tolerated the procedure well. Hemostasis was achieved using Angio-Seal and manua l compression. There were no immediate complications. FINDINGS A. RIGHT HEART CATHETERIZATION 1. Intracardiac pressures: Mean right atrial pressure 31 mmHg, right ventricular pressure 88/22 mmHg, pulmonary artery pressure 88/22 mmHg with mean PA pressure 51 mmHg and mean pulmonary capillary wedge pressure 33 mmHg. This is consistent with moderate pulmonary hypertension secondary to elevated left ventricular filling pressures. Right ventricular filling pressures are elevated as well. 2. Oxygen saturations: Right atrium 47.4%, pulmonary artery 47.3%, femoral arterial sheath 88.6%. No evidence of intracardiac shunt. 3. Cardiac output by Jing method 2.75 L/m. B. LEFT HEART CATHETERIZATION 1. Hemodynamics: Elevated left ventricle end-diastolic pressure of 24 mmHg. No pullback gradient across the aortic valve. 2. Coronary angiography: a. The left main coronary artery arose from the left sinus of Valsalva, gave rise to the left anterior descending and left circumflex arteries and did not show any significant stenosis. b. The left anterior descending artery did not show any significant stenosis. c. The left circumflex artery did not show any significant stenosis. d. The right coronary artery was a large and dominant vessel arising from the right sinus of Valsalva that did not show any significant stenosis. Conclusion 1. No significant coronary artery disease 2. Moderate pulmonary hypertension with elevated left ventricular and right ventriclular filling pressures 3. No evidence of intracardial shunt Recommendations Continue aggressive diuresis for acute on chronic combined systolic and diastolic heart failure Signed by : Gucci Schmitz, Electronically Approved : 04/26/2019 14:12:12 DICTATED and SIGNED BY: GUCCI SCHMITZ MD DATE: 04/26/19 1309 EXAM: LIMITED Two-dimensional echocardiogram. Other Information Quality : Average HR: 66bpm INDICATION Limited to check EF RISK FACTORS Hypertension Hyperlipidemia COPD, CAD, CHF 2D DIMENSIONS RVDd 3.1 (2.9-3.5cm) Left Atrium(2D) 3.7 (1.6-4.0cm) IVSd 1.1 (0.7-1.1cm) LVDd 3.5 (3.9-5.9cm) PWd 1.2 (0.7-1.1cm) LVDs 3.1 (2.5-4.0cm) FS (%) 9.8 % SV 11.0 ml LEFT VENTRICLE Limited study to evaluate LV function. The Left Ventricle is borderline dilated. There is borderline to mild concentric left ventricular hypertrophy. The systolic function is low normal to minimally decreased. The Ejection Fraction is 45-50%. Minimal global hypokinesis PERICARDIAL EFFUSION There is a small hemodynamically insignificant pericardial effusion also visualized on previous complete echo on 02/11/2019. Critical Notification Critical Value: No <Conclusion> Limited study to evaluate LV function. The Left Ventricle is borderline dilated. The systolic function is low normal to minimally decreased. The Ejection Fraction is 45-50%. Minimal global hypokinesis There is borderline to mild concentric left ventricular hypertrophy. Signed by : Yola Keys MD Electronically Approved : 04/28/2019 10:19:06 DICTATED and SIGNED BY: YOLA KEYS MD DATE: 04/28/19 0933 nical History: Congestive heart failure Technique: AP view of the chest was obtained at 08/04/2019 9:09 AM. Comparison: None. Findings: The heart is moderately enlarged. The pulmonary vessels are borderline enlarged and slightly congested. There is density in the lung bases right worse than left and density in the costophrenic angles and along the minor fissure. Impression: Moderate cardiomegaly and moderate CHF with a small right effusion and mild left effusion. This appears similar to the prior study. Electronically signed by: Joanie Martinez III, MD (08/04/2019 10:46 AM) [id number] DICTATED and SIGNED BY: JOANIE MARTINEZ III, MD DATE: 08/04/19 1046 Laboratory Tests Test 08/04/19 09:00 White Blood Count 5.5 x10^3/uL (4.0-11.0) Red Blood Count 3.13 x10^6/uL (3.50-5.40) Hemoglobin 10.2 g/dL (12.0-15.5) Hematocrit 31.9 % (36.0-47.0) Mean Corpuscular Volume 102 fL (79-100) Mean Corpuscular Hemoglobin 33 pg (25-35) Mean Corpuscular Hemoglobin Concent 32 g/dL (31-37) Red Cell Distribution Width 18.4 % (11.5-14.5) Platelet Count 229 x10^3/uL (140-400) Neutrophils (%) (Auto) 70 % (31-73) Lymphocytes (%) (Auto) 21 % (24-48) Monocytes (%) (Auto) 8 % (0-9) Eosinophils (%) (Auto) 0 % (0-3) Basophils (%) (Auto) 1 % (0-3) Neutrophils # (Auto) 3.8 x10^3/uL (1.8-7.7) Lymphocytes # (Auto) 1.2 x10^3/uL (1.0-4.8) Monocytes # (Auto) 0.4 x10^3/uL (0.0-1.1) Eosinophils # (Auto) 0.0 x10^3/uL (0.0-0.7) Basophils # (Auto) 0.0 x10^3/uL (0.0-0.2) Sodium Level 132 mmol/L (136-145) Potassium Level 4.4 mmol/L (3.5-5.1) Chloride Level 93 mmol/L (98-107) Carbon Dioxide Level 35 mmol/L (21-32) Anion Gap 4 (6-14) Blood Urea Nitrogen 26 mg/dL (7-20) Creatinine 1.5 mg/dL (0.6-1.0) Estimated GFR (Cockcroft-Gault) 42.3 Glucose Level 101 mg/dL (70-99) Calcium Level 9.2 mg/dL (8.5-10.1) Magnesium Level 1.5 mg/dL (1.8-2.4) Assessment and Plan Assessmemt and Plan Problems Medical Problems: (1) CHF (congestive heart failure) Status: Acute Comment Review of Relevant I have reviewed the following items suad (where applicable) has been applied. Labs Laboratory Tests Test 08/04/19 09:00 White Blood Count 5.5 x10^3/uL (4.0-11.0) Red Blood Count 3.13 x10^6/uL (3.50-5.40) Hemoglobin 10.2 g/dL (12.0-15.5) Hematocrit 31.9 % (36.0-47.0) Mean Corpuscular Volume 102 fL (79-100) Mean Corpuscular Hemoglobin 33 pg (25-35) Mean Corpuscular Hemoglobin Concent 32 g/dL (31-37) Red Cell Distribution Width 18.4 % (11.5-14.5) Platelet Count 229 x10^3/uL (140-400) Neutrophils (%) (Auto) 70 % (31-73) Lymphocytes (%) (Auto) 21 % (24-48) Monocytes (%) (Auto) 8 % (0-9) Eosinophils (%) (Auto) 0 % (0-3) Basophils (%) (Auto) 1 % (0-3) Neutrophils # (Auto) 3.8 x10^3/uL (1.8-7.7) Lymphocytes # (Auto) 1.2 x10^3/uL (1.0-4.8) Monocytes # (Auto) 0.4 x10^3/uL (0.0-1.1) Eosinophils # (Auto) 0.0 x10^3/uL (0.0-0.7) Basophils # (Auto) 0.0 x10^3/uL (0.0-0.2) Sodium Level 132 mmol/L (136-145) Potassium Level 4.4 mmol/L (3.5-5.1) Chloride Level 93 mmol/L (98-107) Carbon Dioxide Level 35 mmol/L (21-32) Anion Gap 4 (6-14) Blood Urea Nitrogen 26 mg/dL (7-20) Creatinine 1.5 mg/dL (0.6-1.0) Estimated GFR (Cockcroft-Gault) 42.3 Glucose Level 101 mg/dL (70-99) Calcium Level 9.2 mg/dL (8.5-10.1) Magnesium Level 1.5 mg/dL (1.8-2.4) Laboratory Tests Test 08/04/19 09:00 White Blood Count 5.5 x10^3/uL (4.0-11.0) Red Blood Count 3.13 x10^6/uL (3.50-5.40) Hemoglobin 10.2 g/dL (12.0-15.5) Hematocrit 31.9 % (36.0-47.0) Mean Corpuscular Volume 102 fL (79-100) Mean Corpuscular Hemoglobin 33 pg (25-35) Mean Corpuscular Hemoglobin Concent 32 g/dL (31-37) Red Cell Distribution Width 18.4 % (11.5-14.5) Platelet Count 229 x10^3/uL (140-400) Neutrophils (%) (Auto) 70 % (31-73) Lymphocytes (%) (Auto) 21 % (24-48) Monocytes (%) (Auto) 8 % (0-9) Eosinophils (%) (Auto) 0 % (0-3) Basophils (%) (Auto) 1 % (0-3) Neutrophils # (Auto) 3.8 x10^3/uL (1.8-7.7) Lymphocytes # (Auto) 1.2 x10^3/uL (1.0-4.8) Monocytes # (Auto) 0.4 x10^3/uL (0.0-1.1) Eosinophils # (Auto) 0.0 x10^3/uL (0.0-0.7) Basophils # (Auto) 0.0 x10^3/uL (0.0-0.2) Sodium Level 132 mmol/L (136-145) Potassium Level 4.4 mmol/L (3.5-5.1) Chloride Level 93 mmol/L (98-107) Carbon Dioxide Level 35 mmol/L (21-32) Anion Gap 4 (6-14) Blood Urea Nitrogen 26 mg/dL (7-20) Creatinine 1.5 mg/dL (0.6-1.0) Estimated GFR (Cockcroft-Gault) 42.3 Glucose Level 101 mg/dL (70-99) Calcium Level 9.2 mg/dL (8.5-10.1) Magnesium Level 1.5 mg/dL (1.8-2.4) Microbiology 08/01/19 Urine Culture - Final, Complete 08/01/19 Urine Culture Result 1 (SUMMER) - Final, Complete Medications Current Medications Albuterol/ Ipratropium (Duoneb) 3 ml 1X ONCE NEB Last administered on 08/01/19at 23:57; Start 08/01/19 at 23:00; Stop 08/01/19 at 23:01; Status DC Ondansetron HCl (Zofran) 4 mg PRN Q8HRS PRN IV NAUSEA/VOMITING; Start 08/02/19 at 01:00; Stop 08/03/19 at 00:59; Status DC Morphine Sulfate (Morphine Sulfate) 2 mg PRN Q2HR PRN IV PAIN; Start 08/02/19 at 01:00; Stop 08/03/19 at 00:59; Status DC Furosemide (Lasix) 60 mg 1X ONCE IVP Last administered on 08/02/19at 02:14; Start 08/02/19 at 01:30; Stop 08/02/19 at 01:31; Status DC Furosemide (Lasix) 40 mg 1X ONCE IVP Last administered on 08/02/19at 14:28; Start 08/02/19 at 13:00; Stop 08/02/19 at 13:01; Status DC Amiodarone HCl (Cordarone) 200 mg DAILY PO Last administered on 08/04/19at 08:49; Start 08/03/19 at 09:00 Apixaban (Eliquis) 2.5 mg BID PO Last administered on 08/04/19 20:19; Start 08/02/19 at 21:00 Metoprolol Tartrate (Lopressor) 25 mg BID PO Last administered on 08/04/19 20:19; Start 08/02/19 at 21:00; Stop 08/05/19 at 08:06; Status DC Info (Anti-Coagulation Monitoring By Pharmacy) 1 each PRN DAILY PRN MC SEE COMMENTS Last administered on 08/04/19at 14:20; Start 08/02/19 at 13:15 Albuterol Sulfate (Ventolin Neb Soln) 2.5 mg PRN Q4HRS PRN NEB SHORTNESS OF BREATH Last administered on 08/04/19 00:30; Start 08/02/19 at 13:30 Benzonatate (Tessalon Perle) 100 mg TID PO Last administered on 08/04/19 20:19; Start 08/02/19 at 14:30 Budesonide (Pulmicort) 0.5 mg RTBID NEB Last administered on 08/05/19 07:55; Start 08/02/19 at 20:00 Albuterol/ Ipratropium (Duoneb) 3 ml RTQID NEB Last administered on 08/05/19 07:54; Start 08/02/19 at 16:00 Levothyroxine Sodium (Synthroid) 100 mcg DAILY06 PO Last administered on 08/05/19 06:03; Start 08/03/19 at 06:00 Fluticasone Propionate (Flonase) 2 spray DAILY NS Last administered on 08/04/19 08:49; Start 08/03/19 at 09:00 Nicotine (Nicoderm Cq 21mg) 1 patch PRN DAILY PRN TD NICOTINE W/DRAWAL; Start 08/02/19 at 13:56 Levofloxacin/ Dextrose 50 ml @ 50 mls/hr Q24H IV Last administered on 08/04/19 16:36; Start 08/02/19 at 16:00 Lactobacillus Rhamnosus (Culturelle) 1 cap BID PO Last administered on 08/04/19 20:18; Start 08/02/19 at 21:00 Oxycodone/ Acetaminophen (Percocet 5/325) 1 tab PRN Q6HRS PRN PO PAIN Last administered on 08/04/19 20:20; Start 08/02/19 at 17:30 Furosemide (Lasix) 40 mg BID94 IVP Last administered on 08/04/19 16:36; Start 08/03/19 at 09:00; Stop 08/05/19 at 08:05; Status DC Magnesium Sulfate 50 ml @ 25 mls/hr 1X ONCE IV Last administered on 08/04/19 11:39; Start 08/04/19 at 11:00; Stop 08/04/19 at 12:59; Status DC Sodium Chloride (Normal Saline Flush) 10 ml QSHIFT PRN IV AFTER MEDS AND BLOOD DRAWS; Start 08/04/19 at 11:00 Propofol (Diprivan) 200 mg STK-MED ONCE IV ; Start 08/04/19 at 13:26; Stop 08/04/19 at 13:26; Status DC Sodium Chloride 1,000 ml @ 1,000 mls/hr 1X ONCE IV Last administered on 08/04/19at 14:00; Start 08/04/19 at 14:00; Stop 08/04/19 at 14:59; Status DC Atropine Sulfate (ATROPINE 1mg SYRINGE) 1 mg STK-MED ONCE .ROUTE ; Start 08/04/19 at 14:21; Stop 08/04/19 at 14:21; Status DC Temazepam (Restoril) 15 mg PRN QHS PRN PO INSOMNIA Last administered on 08/04/19at 20:19; Start 08/04/19 at 19:45 Docusate Sodium (Colace) 100 mg BID PO Last administered on 08/04/19at 20:18; Start 08/04/19 at 21:00 Furosemide (Lasix) 40 mg DAILY PO ; Start 08/05/19 at 11:00 Metoprolol Succinate (Toprol Xl) 25 mg DAILY PO ; Start 08/05/19 at 09:00 Active Scripts Active Doxycycline Hyclate 100 Mg Tablet 1 Tab PO BID Budesonide 0.5 Mg/2 Ml Ampul.neb 0.5 Mg NEB RTBID 30 Days Amiodarone Hcl 200 Mg Tablet 200 Mg PO DAILY 30 Days Proair Hfa (Albuterol Sulfate) 8.5 Gm Hfa.aer.ad 2.5 Mg NEB PRN Q4HRS PRN 30 Days Duoneb 0.5-3(2.5) Mg/3 Ml (Albuterol/Ipratropium) 3 Ml Ampul.neb 3 Ml NEB RTQID 30 Days Eliquis (Apixaban) 2.5 Mg Tablet 2.5 Mg PO BID 60 Days Metoprolol Tartrate 25 Mg Tablet 25 Mg PO BID [Nicotine 21MG] 1 PATCH Patch 1 Patch TD PRN DAILY PRN MDD 1 Tessalon Perle (Benzonatate) 100 Mg Capsule 1 Cap PO TID Flonase Allergy Relief (Fluticasone Propionate) 9.9 Ml [place].susp 2 Sprays NS DAILY Reported Levothyroxine Sodium 100 Mcg Tablet 1 Tab PO DAILY Furosemide 40 Mg Tablet 40 Mg PO BID Klor-Con M20 (Potassium Chloride) 20 Meq Tab.er.prt 20 Meq PO BID NEW PRESCRIPTIONS Vitals/I & O Vital Sign - Last 24 Hours 08/04/19 08/04/19 08/04/19 08/04/19 08:49 08:49 10:41 13:36 Temp 97.5 97.5 97.5 97.5 Pulse 106 106 103 103 Resp 22 15 B/P (MAP) 136/74 136/74 107/62 (77) 148/80 Pulse Ox 96 96 O2 Delivery Nasal Cannula Nasal Cannula O2 Flow Rate 2.0 2.0 08/04/19 08/04/19 08/04/19 08/04/19 14:27 14:27 14:42 14:57 Temp 97.5 97.5 97.5 97.5 97.5 97.5 Pulse 60 56 56 Resp 15 15 15 B/P (MAP) 88/59 88/48 105/45 Pulse Ox 96 97 97 O2 Delivery Nasal Cannula Nasal Cannula Nasal Cannula Nasal Cannula O2 Flow Rate 2.0 2.0 2.0 2.0 08/04/19 08/04/19 08/04/19 08/04/19 15:16 15:30 15:45 16:00 Pulse 65 66 70 B/P (MAP) 98/60 (73) 110/65 (80) 88/63 (71) O2 Delivery Nasal Cannula O2 Flow Rate 2.0 08/04/19 08/04/19 08/04/19 08/04/19 16:00 16:30 17:00 18:00 Pulse 70 72 72 66 B/P (MAP) 102/72 (82) 95/61 (72) 99/64 (76) 108/60 (76) 08/04/19 08/04/19 08/04/19 08/04/19 19:59 20:00 20:19 20:20 Pulse 66 B/P (MAP) 108/60 Pulse Ox 93 93 O2 Delivery Nasal Cannula Nasal Cannula Nasal Cannula O2 Flow Rate 2.0 2.0 2.0 08/04/19 08/04/19 08/05/19 08/05/19 21:20 23:00 02:26 08:00 Temp 97.3 97.3 Pulse 67 B/P (MAP) 86/59 (68) Pulse Ox 93 100 95 O2 Delivery Nasal Cannula Nasal Cannula Nasal Cannula O2 Flow Rate 2.0 2.0 2.0 08/05/19 08:01 Pulse Ox 95 O2 Delivery Nasal Cannula O2 Flow Rate 2.0 Intake and Output 08/04/19 08/04/19 08/05/19 14:59 22:59 06:59 Intake Total 150 ml 990 ml 1080 ml Output Total 200 ml Balance 150 ml 790 ml 1080 ml Nutrition Consultation Dietary Evaluation: Recommendations by RD: Dietary education by RD, Increase Calorie Intake, Protein supplementation Comments: REC continue w/cardiac diet, add ground meats per pt request REC Ensure (strawberry) TID Briggs food preferences and provide snacks as requested Expected Outcomes/Goals: PO intake to meet >75% est needs Malnutrition Findings: Body Fat Depletion (Non Severe: Mild Depletion Weight Status: Appropriate RUPERTO BAHENA MD August 05, 2019 08:19
[2019-08-05] MEDS: FLUTICASONE 50MCG/NASAL SPRAY 16GM BOTTLE. NS SCH (08:59)
[2019-08-05] MEDS: APIXABAN 2.5 MG TABLET. PO SCH ×2 (08:59→21:40)
[2019-08-05] MEDS: AMIODARONE HCL 200 MG TABLET. PO SCH (08:59)
[2019-08-05] MEDS: LACTOBACILLUS RHAMNOSUS GG 1 CAPSULE. PO SCH ×2 (08:59→21:39)
[2019-08-05] MEDS: DOCUSATE SODIUM 100 MG CAPSULE. PO SCH ×2 (08:59→21:39)
[2019-08-05] MEDS: BENZONATATE 100 MG CAPSULE. PO SCH ×3 (09:00→21:39)
[2019-08-05] MEDS ORDERED: MAGNESIUM SULFATE 2GM 50 ML IV ONE (09:00)
[2019-08-05] MEDS: METOPROLOL SUCC 24HR ER 25 MG TAB.ER.24H. PO SCH (09:03)
--- NOTE | 2019-08-05 09:07 | PDOC ---
MARLEEN CEBALLOS INTERRELATED SPECIAL EDUCATION TEACHER 08/05/19 0906: CARDIO Progress Notes Date and Time Date of Service 08/05/2019 Time of Evaluation 09 Subjective Subjective: No Chest Pain, No shortness of breath, No Palpitations Vitals Vitals Vital Signs Date Time Temp Pulse Resp B/P (MAP) Pulse Ox O2 Delivery O2 Flow Rate FiO2 08/05/19 08:01 95 Nasal Cannula 2.0 08/05/19 07:00 97.5 62 18 129/66 (87) 97.5 Weight Weight [ ] Input and Output Intake and Output Intake and Output 08/05/19 07:00 Intake Total 2220 ml Output Total 200 ml Balance 2020 ml Intake Oral 1110 ml IV Total 1110 ml Output Urine Total 200 ml # Voids 4 Microbiology Micro Microbiology 08/01/19 Urine Culture - Final, Complete 08/01/19 Urine Culture Result 1 (SUMMER) - Final, Complete Physical Exam HEENT: Neck Supple W Full Motion Chest: Symmetric LUNGS: Other (diminished throughout) Heart: RRR (SR) Abdomen: Soft N/T Extremities: Other (3+ bilateral LE edema ) Neurology: alert, oriented, follow commands Assessment Assessment 1. Acute on chronic respiratory failure; multifactorial with a/c systolic CHF, AECOPD, NEGRITO/CKD. SOA much better 2. Acute on chronic diastolic/systolic CHF: potentially induced by RVR. appears compensated 3. NICM; LVEF 45% Recent cath without obstructive disease 3. PAFIB/flutter with RVR; maintaning SR post CVN 4. NEGRITO on CKD3: Cr at 2.1 today possibly from overdiurese. Wt is now lower at 57KG. Nephrology following 5. Severe pulmonary HTN/cor pulmonale 6. COPD with past tobaccoism Recommendations 1. Pleural effusion stable. No SOA. Convert to PO lasix daily. Will transition to toprol at lower dose given her marginal low BP 2. Continue amiodarone and eliquis 3. No ACEi with NEGRITO/renal disease/hyperkalemia 4. Follow up in office. Recommend HH and follow up labs as an outpt YOLA SAUCEDO MD 08/05/19 1632: CARDIO Progress Notes Assessment Assessment Patient seen and examined Agree with our nurse practitioners assessment. Acute on chronic respiratory failure; multifactorial with a/c systolic CHF, AECOPD, NEGRITO/CKD. Improved. Acute on chronic diastolic/systolic CHF: potentially induced by RVR. compensated NICM; LVEF 45% Recent cath without obstructive disease PAFIB/flutter with RVR; maintaning SR post CVN NEGRITO on CKD3: Cr at 2.1 today. Nephrology following Severe pulmonary HTN/cor pulmonale MARLEEN CEBALLOS APRN August 05, 2019 09:06 YOLA SAUCEDO MD August 05, 2019 16:32
[2019-08-05 10:03] LABS: CALCIUM 8.7 mg/dL (8.5-10.1); CREATININE 2.1 mg/dL (0.6-1.0); GFR 28.7; MAGNESIUM 2.4 mg/dL (1.8-2.4)
[2019-08-05 11:00] VITALS: BP 95/57
[2019-08-05] MEDS ORDERED: FUROSEMIDE 40 MG TABLET. PO SCH (11:00)
--- NOTE | 2019-08-05 11:03 | PDOC ---
SUBJECTIVE ROS No complaints OBJECTIVE Vital Signs Vital Signs Date Time Temp Pulse Resp B/P (MAP) Pulse Ox O2 Delivery O2 Flow Rate FiO2 08/05/19 09:03 62 129/66 08/05/19 08:01 95 Nasal Cannula 2.0 08/05/19 07:00 97.5 18 97.5 I & 0 Intake and Output 08/05/19 07:00 Intake Total 2220 ml Output Total 200 ml Balance 2020 ml Intake Oral 1110 ml IV Total 1110 ml Output Urine Total 200 ml # Voids 4 PHYSICAL EXAM Physical Exam GEN NAD HEENT: OM moist Neck supple LUNGS: diminished bases, non labored Heart: irregularly irregular (AFIB- rate controlled) Abdomen: Soft N/T Extremities: 2-+ bilateral LE edema Neurology: alert, oriented, follow commands No alex Skin No rash DIAGNOSIS/ASSESSMENT Assessment & Plan NEGRITO- worsening kidney function suspect sec to overdiuresis UOP not recorded Switched from IV lasix to PO today Supportive care, Strict I/O daily Standing wt, may need to back off on diuretics , Monitor daily BMP Acute on chronic diastolic/systolic CHF- On Diuretics, Cardiology managing CKD stage 3 - UA unremarkable, Renal US- echogenecity + Supportive care, avoid nephrotoxins, Monitor Hx of NEGRITO recently , renal function at baseline HyperKalemia- Mild at presentation- resolved Hyponatremia - drop in Na, cardiac /Diuretics - stable Anemia - chronic Acute on chronic respiratory failure- multifactorial with a/c systolic CHF, COPD, COVID recently negative. NICM; LVEF 40-45% Recent cath without obstructive disease PAFIB/flutter; presently AFIB/flutter Severe pulmonary HTN/cor pulmonale COMMENT/RELEVANT DATA Meds Current Medications Medications (Trade) Dose Ordered Sig/Karen Start Time Stop Time Status Last Admin Dose Admin Albuterol Sulfate (Ventolin Neb Soln) 2.5 mg PRN Q4HRS PRN 08/02/19 13:30 08/04/19 00:30 2.5 MG Albuterol/ Ipratropium (Duoneb) 3 ml RTQID 08/02/19 16:00 08/05/19 07:54 3 ML Amiodarone HCl (Cordarone) 200 mg DAILY 08/03/19 09:00 08/05/19 08:59 200 MG Apixaban (Eliquis) 2.5 mg BID 08/02/19 21:00 08/05/19 08:59 2.5 MG Atropine Sulfate (ATROPINE 1mg SYRINGE) 1 mg STK-MED ONCE 08/04/19 14:21 08/04/19 14:21 DC Benzonatate (Tessalon Perle) 100 mg TID 08/02/19 14:30 08/05/19 09:00 100 MG Budesonide (Pulmicort) 0.5 mg RTBID 08/02/19 20:00 08/05/19 07:55 0.5 MG Docusate Sodium (Colace) 100 mg BID 08/04/19 21:00 08/05/19 08:59 100 MG Fluticasone Propionate (Flonase) 2 spray DAILY 08/03/19 09:00 08/05/19 08:59 2 SPRAY Furosemide (Lasix) 40 mg DAILY 08/05/19 14:00 Info (Anti-Coagulation Monitoring By Pharmacy) 1 each PRN DAILY PRN 08/02/19 13:15 08/04/19 14:20 1 EACH Lactobacillus Rhamnosus (Culturelle) 1 cap BID 08/02/19 21:00 08/05/19 08:59 1 CAP Levofloxacin/ Dextrose 50 ml @ 50 mls/hr Q24H 08/02/19 16:00 08/04/19 16:36 50 MLS/HR Levothyroxine Sodium (Synthroid) 100 mcg DAILY06 08/03/19 06:00 08/05/19 06:03 100 MCG Magnesium Sulfate 50 ml @ 25 mls/hr 1X ONCE 08/05/19 09:00 08/05/19 10:59 Metoprolol Succinate (Toprol Xl) 25 mg DAILY 08/05/19 09:00 08/05/19 09:03 25 MG Metoprolol Tartrate (Lopressor) 25 mg BID 08/02/19 21:00 08/05/19 08:06 DC 08/04/19 20:19 25 MG Morphine Sulfate (Morphine Sulfate) 2 mg PRN Q2HR PRN 08/02/19 01:00 08/03/19 00:59 DC Nicotine (Nicoderm Cq 21mg) 1 patch PRN DAILY PRN 08/02/19 13:56 Ondansetron HCl (Zofran) 4 mg PRN Q8HRS PRN 08/02/19 01:00 08/03/19 00:59 DC Oxycodone/ Acetaminophen (Percocet 5/325) 1 tab PRN Q6HRS PRN 08/02/19 17:30 08/04/19 20:20 1 TAB Propofol (Diprivan) 200 mg STK-MED ONCE 08/04/19 13:26 08/04/19 13:26 DC Sodium Chloride 1,000 ml @ 1,000 mls/hr 1X ONCE 08/04/19 14:00 08/04/19 14:59 DC 08/04/19 14:00 1,000 MLS/HR Sodium Chloride (Normal Saline Flush) 10 ml QSHIFT PRN 08/04/19 11:00 Temazepam (Restoril) 15 mg PRN QHS PRN 08/04/19 19:45 08/04/19 20:19 15 MG Lab Laboratory Tests Test 08/05/19 09:30 Sodium Level 135 mmol/L (136-145) Potassium Level 5.0 mmol/L (3.5-5.1) Chloride Level 97 mmol/L (98-107) Carbon Dioxide Level 33 mmol/L (21-32) Anion Gap 5 (6-14) Blood Urea Nitrogen 35 mg/dL (7-20) Creatinine 2.1 mg/dL (0.6-1.0) Estimated GFR (Cockcroft-Gault) 28.7 Glucose Level 82 mg/dL (70-99) Calcium Level 8.7 mg/dL (8.5-10.1) Magnesium Level 2.4 mg/dL (1.8-2.4) Results All relevant outside records, renal labs, imaging studies, telemetry/EKG's were reviewed. ALTAGRACIA BLANTON MD August 05, 2019 11:03
[2019-08-05] MEDS ORDERED: BISACODYL 10 MG SUPP.RECT. PR ONE (13:00)
[2019-08-05] MEDS ORDERED: BISACODYL 10 MG SUPP.RECT. PR PRN (13:00)
--- NOTE | 2019-08-05 14:22 | NUR ---
SS following up with discharge planning. Referral was sent to [facility], ; fax [phone]. Pt accepted at [facility] and has insurance authorization. Pt had negative COVID19 test on 07/27/2019. [facility] unwilling to accept COVID testing from 07/26. They are requesting new COVID test prior to discharge. Pt's RN notified and COVID test being ordered. SS spoke with pt's daughter, Hallie, and pt's daughter agreeable to transfer to [facility] when ready. SS will continue to follow for discharge planning.
[2019-08-05 15:00] VITALS: BP 134/64
[2019-08-05] MEDS: FUROSEMIDE 40 MG TABLET. PO SCH (15:34)
[2019-08-05] MEDS: oxyCODONE/APAP 5/325 1 TAB TABLET PO PRN (21:40)
[2019-08-05] MEDS: TEMAZEPAM 15 MG CAPSULE PO PRN (21:40)
[2019-08-05 23:07] VITALS: BP 102/54
[2019-08-06 03:27] VITALS: BP 123/64
[2019-08-06 05:07] LABS: ALBUMIN 3.1 g/dL (3.4-5.0); CALCIUM 8.5 mg/dL (8.5-10.1); CREATININE 2.2 mg/dL (0.6-1.0); GFR 27.2; POTASSIUM 5.6 mmol/L (3.5-5.1); TOTAL BILIRUBIN 0.5 mg/dL (0.2-1.0); TOTAL PROTEIN 6.3 g/dL (6.4-8.2)
[2019-08-06] MEDS: IPRATRPIUM/ALBUTEROL 0.5/2.5MG 3 ML NEBU. NEB SCH ×4 (05:47→19:34)
[2019-08-06] MEDS: BUDESONIDE 0.5 MG/2 ML NEBU. NEB SCH ×2 (05:47→19:34)
[2019-08-06] MEDS: LEVOTHYROXINE 100 MCG TABLET PO SCH (06:09)
[2019-08-06 08:10] VITALS: BP 118/56
[2019-08-06] MEDS ORDERED: SODIUM POLYSTYRENE SULFON/SORB 15 GM/60 ML ORAL.SUSP PO ONE (09:00)
--- NOTE | 2019-08-06 09:00 | PDOC ---
MARLEEN CEBALLOS BIOPHYSICS PROFESSOR 08/06/19 0900: CARDIO Progress Notes Date and Time Date of Service 08/06/2019 Time of Evaluation 0850 Subjective Subjective: No Chest Pain, No shortness of breath, No Palpitations Vitals Vitals Vital Signs Date Time Temp Pulse Resp B/P (MAP) Pulse Ox O2 Delivery O2 Flow Rate FiO2 08/06/19 05:47 Nasal Cannula 3.0 08/06/19 03:27 97.3 58 123/64 (83) 90 97.3 08/05/19 23:07 16 Weight Weight [ ] Input and Output Intake and Output Intake and Output 08/06/19 07:00 Intake Total 620 ml Output Total 0 ml Balance 620 ml Intake Oral 620 ml Output Urine Total 0 ml Stool Total 0 ml # Voids 2 # Bowel Movements 1 Laboratory Labs Laboratory Tests Test 08/05/19 09:30 08/06/19 04:09 Sodium Level 135 mmol/L (136-145) 136 mmol/L (136-145) Potassium Level 5.0 mmol/L (3.5-5.1) 5.6 mmol/L (3.5-5.1) Chloride Level 97 mmol/L (98-107) 95 mmol/L (98-107) Carbon Dioxide Level 33 mmol/L (21-32) 31 mmol/L (21-32) Anion Gap 5 (6-14) 10 (6-14) Blood Urea Nitrogen 35 mg/dL (7-20) 43 mg/dL (7-20) Creatinine 2.1 mg/dL (0.6-1.0) 2.2 mg/dL (0.6-1.0) Estimated GFR (Cockcroft-Gault) 28.7 27.2 Glucose Level 82 mg/dL (70-99) 63 mg/dL (70-99) Calcium Level 8.7 mg/dL (8.5-10.1) 8.5 mg/dL (8.5-10.1) Magnesium Level 2.4 mg/dL (1.8-2.4) BUN/Creatinine Ratio 20 (6-20) Total Bilirubin 0.5 mg/dL (0.2-1.0) Aspartate Amino Transf (AST/SGOT) 61 U/L (15-37) Alanine Aminotransferase (ALT/SGPT) 61 U/L (14-59) Alkaline Phosphatase 66 U/L (46-116) Total Protein 6.3 g/dL (6.4-8.2) Albumin 3.1 g/dL (3.4-5.0) Albumin/Globulin Ratio 1.0 (1.0-1.7) Microbiology Micro Microbiology 08/01/19 Urine Culture - Final, Complete 08/01/19 Urine Culture Result 1 (SUMMER) - Final, Complete Physical Exam HEENT: Neck Supple W Full Motion Chest: Symmetric LUNGS: Other (diminished throughout, basilar crackles) Heart: RRR (SR) Abdomen: Soft N/T Extremities: Other (3+ bilateral LE edema ) Neurology: alert, oriented, follow commands Assessment Assessment 1. Acute on chronic respiratory failure; multifactorial with a/c systolic CHF, AECOPD, NEGRITO/CKD. SOA much better 2. Acute on chronic diastolic/systolic CHF: potentially induced by RVR. appears compensated 3. NICM; LVEF 45% Recent cath without obstructive disease 3. PAFIB/flutter with RVR; maintaining SR post CVN 4. NEGRITO on CKD3 with hyperkalemia: Cr at 2.2 today possibly from overdiurese. Nephrology following 5. Severe pulmonary HTN/cor pulmonale 6. COPD with past tobaccoism Recommendations 1. Pleural effusion stable. No SOA. PO lasix daily. Will discuss with nephrology in regards to diuretic dosing as pt Cr tends to be labile. Continue toprol. x1 kayexelate 2. Continue amiodarone and eliquis 3. No ACEi with NEGRITO/renal disease/hyperkalemia 4. Follow up in office. Recommend HH and follow up labs as an outpt FREDA LANDON MD 08/06/19 2157: CARDIO Progress Notes Plan Plan Pt. seen and examined. Agree with above [employer] note. ok to DC from CV standpoint. She needs hospice evaluation but family is not in agreement. Supportive care. MARLEEN CEBALLOS BIOPHYSICS PROFESSOR August 06, 2019 09:00 FREDA LANDON MD August 06, 2019 17:57
[2019-08-06] MEDS: FLUTICASONE 50MCG/NASAL SPRAY 16GM BOTTLE. NS SCH (09:23)
[2019-08-06] MEDS: DOCUSATE SODIUM 100 MG CAPSULE. PO SCH ×2 (09:24→20:47)
[2019-08-06] MEDS: LACTOBACILLUS RHAMNOSUS GG 1 CAPSULE. PO SCH ×2 (09:24→20:47)
[2019-08-06] MEDS: APIXABAN 2.5 MG TABLET. PO SCH ×2 (09:24→20:47)
[2019-08-06] MEDS: BENZONATATE 100 MG CAPSULE. PO SCH ×3 (09:24→20:47)
[2019-08-06] MEDS: METOPROLOL SUCC 24HR ER 25 MG TAB.ER.24H. PO SCH (09:26)
[2019-08-06] MEDS: FUROSEMIDE 40 MG TABLET. PO SCH (09:27)
[2019-08-06] MEDS: AMIODARONE HCL 200 MG TABLET. PO SCH (09:27)
--- NOTE | 2019-08-06 10:16 | PDOC ---
PROGRESS NOTES Chief Complaint Chief Complaint IMPRESSION Acute on chronic respiratory failure secondary to multiple etiologies including congestive heart failure chronic in nature systolic dysfunction, underlying COPD, chronic kidney disease Acute exacerbation of chronic obstructive pulmonary disease Recently treated for HCAP, CKD stage III A- fib, PCN allergy Severe pulmonary hypertension with cor pulmonale Moderate pulmonary hypertension with elevated left ventricular and right ventriclular filling pressures recent cath 04/19 No evidence of intracardial shunt Anemia of chronic disease Paroxysmal atrial fibrillation with history of being on anticoagulation NICM; LVEF 45% Recent cath without obstructive disease Coronary artery disease HYPOMAGNESEMIA Plan: Continue with diuresis as per [facility] consultant clifford once a day pending covid so she can transfer to healthcare resort cardioversioin 08/03 Follow urinary output and urine function tests Continue anticoagulation No DASIA or Arps in light of her acute renal failure Continue supportive measures Grim prognosis with patient's family and daughter who is the POA want "everything done". Patient with multiple admissions throughout this year 10 since late 2018 so far quite poor prognosis and this is infringing certainly on her quality of life. Patient has been in hospice recently and is certainly appropriate to go back on hospice nevertheless there seems to be persistent in spite of family members who cannot understand the importance of quality of life and Ms Jazzy's case 37 min pt exam, chart review, > 50% of time spent with exam, chart review, pt care coordination History of Present Illness History of Present Illness No acute events reported overnight, case discussed with nursing staff patient in no acute distress no complaints during my visit Vitals Vitals Vital Signs Date Time Temp Pulse Resp B/P (MAP) Pulse Ox O2 Delivery O2 Flow Rate FiO2 08/06/19 09:27 61 148/64 08/06/19 05:47 Nasal Cannula 3.0 08/06/19 03:27 97.3 90 97.3 08/05/19 23:07 16 Physical Exam Physical Exam HEENT: Neck Supple W Full Motion Chest: Symmetric LUNGS: Other (basilar crackles with faint wheeze) Heart: irregularly irregular (Atrial flutter) Abdomen: Soft N/T Extremities: Other (3+ bilateral LE edema ) Neurology: alert, oriented, follow command Lungs: Other Labs LABS Laboratory Tests Test 08/06/19 04:09 Sodium Level 136 mmol/L (136-145) Potassium Level 5.6 mmol/L (3.5-5.1) Chloride Level 95 mmol/L (98-107) Carbon Dioxide Level 31 mmol/L (21-32) Anion Gap 10 (6-14) Blood Urea Nitrogen 43 mg/dL (7-20) Creatinine 2.2 mg/dL (0.6-1.0) Estimated GFR (Cockcroft-Gault) 27.2 BUN/Creatinine Ratio 20 (6-20) Glucose Level 63 mg/dL (70-99) Calcium Level 8.5 mg/dL (8.5-10.1) Total Bilirubin 0.5 mg/dL (0.2-1.0) Aspartate Amino Transf (AST/SGOT) 61 U/L (15-37) Alanine Aminotransferase (ALT/SGPT) 61 U/L (14-59) Alkaline Phosphatase 66 U/L (46-116) Total Protein 6.3 g/dL (6.4-8.2) Albumin 3.1 g/dL (3.4-5.0) Albumin/Globulin Ratio 1.0 (1.0-1.7) Assessment and Plan Assessmemt and Plan Problems Medical Problems: (1) CHF (congestive heart failure) Status: Acute Comment Review of Relevant I have reviewed the following items suad (where applicable) has been applied. Labs Laboratory Tests Test 08/05/19 09:30 08/06/19 04:09 Sodium Level 135 mmol/L (136-145) 136 mmol/L (136-145) Potassium Level 5.0 mmol/L (3.5-5.1) 5.6 mmol/L (3.5-5.1) Chloride Level 97 mmol/L (98-107) 95 mmol/L (98-107) Carbon Dioxide Level 33 mmol/L (21-32) 31 mmol/L (21-32) Anion Gap 5 (6-14) 10 (6-14) Blood Urea Nitrogen 35 mg/dL (7-20) 43 mg/dL (7-20) Creatinine 2.1 mg/dL (0.6-1.0) 2.2 mg/dL (0.6-1.0) Estimated GFR (Cockcroft-Gault) 28.7 27.2 Glucose Level 82 mg/dL (70-99) 63 mg/dL (70-99) Calcium Level 8.7 mg/dL (8.5-10.1) 8.5 mg/dL (8.5-10.1) Magnesium Level 2.4 mg/dL (1.8-2.4) BUN/Creatinine Ratio 20 (6-20) Total Bilirubin 0.5 mg/dL (0.2-1.0) Aspartate Amino Transf (AST/SGOT) 61 U/L (15-37) Alanine Aminotransferase (ALT/SGPT) 61 U/L (14-59) Alkaline Phosphatase 66 U/L (46-116) Total Protein 6.3 g/dL (6.4-8.2) Albumin 3.1 g/dL (3.4-5.0) Albumin/Globulin Ratio 1.0 (1.0-1.7) Laboratory Tests Test 08/06/19 04:09 Sodium Level 136 mmol/L (136-145) Potassium Level 5.6 mmol/L (3.5-5.1) Chloride Level 95 mmol/L (98-107) Carbon Dioxide Level 31 mmol/L (21-32) Anion Gap 10 (6-14) Blood Urea Nitrogen 43 mg/dL (7-20) Creatinine 2.2 mg/dL (0.6-1.0) Estimated GFR (Cockcroft-Gault) 27.2 BUN/Creatinine Ratio 20 (6-20) Glucose Level 63 mg/dL (70-99) Calcium Level 8.5 mg/dL (8.5-10.1) Total Bilirubin 0.5 mg/dL (0.2-1.0) Aspartate Amino Transf (AST/SGOT) 61 U/L (15-37) Alanine Aminotransferase (ALT/SGPT) 61 U/L (14-59) Alkaline Phosphatase 66 U/L (46-116) Total Protein 6.3 g/dL (6.4-8.2) Albumin 3.1 g/dL (3.4-5.0) Albumin/Globulin Ratio 1.0 (1.0-1.7) Microbiology 08/01/19 Urine Culture - Final, Complete 08/01/19 Urine Culture Result 1 (SUMEMR) - Final, Complete Medications Current Medications Albuterol/ Ipratropium (Duoneb) 3 ml 1X ONCE NEB Last administered on 08/01/19at 23:57; Start 08/01/19 at 23:00; Stop 08/01/19 at 23:01; Status DC Ondansetron HCl (Zofran) 4 mg PRN Q8HRS PRN IV NAUSEA/VOMITING; Start 08/02/19 at 01:00; Stop 08/03/19 at 00:59; Status DC Morphine Sulfate (Morphine Sulfate) 2 mg PRN Q2HR PRN IV PAIN; Start 08/02/19 at 01:00; Stop 08/03/19 at 00:59; Status DC Furosemide (Lasix) 60 mg 1X ONCE IVP Last administered on 08/02/19at 02:14; Start 08/02/19 at 01:30; Stop 08/02/19 at 01:31; Status DC Furosemide (Lasix) 40 mg 1X ONCE IVP Last administered on 08/02/19 14:28; Start 08/02/19 at 13:00; Stop 08/02/19 at 13:01; Status DC Amiodarone HCl (Cordarone) 200 mg DAILY PO Last administered on 08/06/19 09:27; Start 08/03/19 at 09:00 Apixaban (Eliquis) 2.5 mg BID PO Last administered on 08/06/19 09:24; Start 08/02/19 at 21:00 Metoprolol Tartrate (Lopressor) 25 mg BID PO Last administered on 08/04/19 20:19; Start 08/02/19 at 21:00; Stop 08/05/19 at 08:06; Status DC Info (Anti-Coagulation Monitoring By Pharmacy) 1 each PRN DAILY PRN MC SEE COMMENTS Last administered on 08/04/19 14:20; Start 08/02/19 at 13:15 Albuterol Sulfate (Ventolin Neb Soln) 2.5 mg PRN Q4HRS PRN NEB SHORTNESS OF BREATH Last administered on 08/04/19 00:30; Start 08/02/19 at 13:30 Benzonatate (Tessalon Perle) 100 mg TID PO Last administered on 08/06/19 09:24; Start 08/02/19 at 14:30 Budesonide (Pulmicort) 0.5 mg RTBID NEB Last administered on 08/06/19 05:47; Start 08/02/19 at 20:00 Albuterol/ Ipratropium (Duoneb) 3 ml RTQID NEB Last administered on 08/06/19 05:47; Start 08/02/19 at 16:00 Levothyroxine Sodium (Synthroid) 100 mcg DAILY06 PO Last administered on 08/06/19 06:09; Start 08/03/19 at 06:00 Fluticasone Propionate (Flonase) 2 spray DAILY NS Last administered on 08/06/19 09:23; Start 08/03/19 at 09:00 Nicotine (Nicoderm Cq 21mg) 1 patch PRN DAILY PRN TD NICOTINE W/DRAWAL; Start 08/02/19 at 13:56 Levofloxacin/ Dextrose 50 ml @ 50 mls/hr Q24H IV Last administered on 08/05/19 16:22; Start 08/02/19 at 16:00 Lactobacillus Rhamnosus (Culturelle) 1 cap BID PO Last administered on 08/06/19 09:24; Start 08/02/19 at 21:00 Oxycodone/ Acetaminophen (Percocet 5/325) 1 tab PRN Q6HRS PRN PO PAIN Last administered on 08/05/19at 21:40; Start 08/02/19 at 17:30 Furosemide (Lasix) 40 mg BID94 IVP Last administered on 08/04/19 16:36; Start 08/03/19 at 09:00; Stop 08/05/19 at 08:05; Status DC Magnesium Sulfate 50 ml @ 25 mls/hr 1X ONCE IV Last administered on 08/04/19at 11:39; Start 08/04/19 at 11:00; Stop 08/04/19 at 12:59; Status DC Sodium Chloride (Normal Saline Flush) 10 ml QSHIFT PRN IV AFTER MEDS AND BLOOD DRAWS; Start 08/04/19 at 11:00 Propofol (Diprivan) 200 mg STK-MED ONCE IV ; Start 08/04/19 at 13:26; Stop 08/04/19 at 13:26; Status DC Sodium Chloride 1,000 ml @ 1,000 mls/hr 1X ONCE IV Last administered on 08/04/19at 14:00; Start 08/04/19 at 14:00; Stop 08/04/19 at 14:59; Status DC Atropine Sulfate (ATROPINE 1mg SYRINGE) 1 mg STK-MED ONCE .ROUTE ; Start 08/04/19 at 14:21; Stop 08/04/19 at 14:21; Status DC Temazepam (Restoril) 15 mg PRN QHS PRN PO INSOMNIA Last administered on 08/05/19at 21:40; Start 08/04/19 at 19:45 Docusate Sodium (Colace) 100 mg BID PO Last administered on 08/06/19at 09:24; Start 08/04/19 at 21:00 Furosemide (Lasix) 40 mg DAILY PO ; Start 08/05/19 at 11:00; Stop 08/05/19 at 10:51; Status DC Metoprolol Succinate (Toprol Xl) 25 mg DAILY PO Last administered on 08/06/19at 09:26; Start 08/05/19 at 09:00 Magnesium Sulfate 50 ml @ 25 mls/hr 1X ONCE IV ; Start 08/05/19 at 09:00; Stop 08/05/19 at 10:59; Status DC Furosemide (Lasix) 40 mg DAILY PO Last administered on 08/06/19at 09:27; Start 08/05/19 at 14:00 Bisacodyl (Dulcolax Supp) 10 mg PRN DAILY PRN GA CONSTIPATION; Start 08/05/19 at 13:00 Bisacodyl (Dulcolax Supp) 10 mg 1X ONCE GA Last administered on 08/05/19at 15:35; Start 08/05/19 at 13:00; Stop 08/05/19 at 13:01; Status DC Sodium Polystyrene Sulfonate (Kayexalate) 15 gm 1X ONCE PO Last administered on 08/06/19at 09:27; Start 08/06/19 at 09:00; Stop 08/06/19 at 09:01; Status DC Active Scripts Active Doxycycline Hyclate 100 Mg Tablet 1 Tab PO BID Budesonide 0.5 Mg/2 Ml Ampul.neb 0.5 Mg NEB RTBID 30 Days Amiodarone Hcl 200 Mg Tablet 200 Mg PO DAILY 30 Days Proair Hfa (Albuterol Sulfate) 8.5 Gm Hfa.aer.ad 2.5 Mg NEB PRN Q4HRS PRN 30 Days Duoneb 0.5-3(2.5) Mg/3 Ml (Albuterol/Ipratropium) 3 Ml Ampul.neb 3 Ml NEB RTQID 30 Days Eliquis (Apixaban) 2.5 Mg Tablet 2.5 Mg PO BID 60 Days Metoprolol Tartrate 25 Mg Tablet 25 Mg PO BID [Nicotine 21MG] 1 PATCH Patch 1 Patch TD PRN DAILY PRN MDD 1 Tessalon Perle (Benzonatate) 100 Mg Capsule 1 Cap PO TID Flonase Allergy Relief (Fluticasone Propionate) 9.9 Ml [place].susp 2 Sprays NS DAILY Reported Levothyroxine Sodium 100 Mcg Tablet 1 Tab PO DAILY Furosemide 40 Mg Tablet 40 Mg PO BID Klor-Con M20 (Potassium Chloride) 20 Meq Tab.er.prt 20 Meq PO BID NEW PRESCRIPTIONS Vitals/I & O Vital Sign - Last 24 Hours 08/05/19 08/05/19 08/05/19 08/05/19 11:00 12:06 15:00 16:12 Temp 97.3 97.4 97.3 97.4 Pulse 59 57 Resp 20 16 B/P (MAP) 95/57 (70) 134/64 (87) Pulse Ox 99 96 O2 Delivery Nasal Cannula Nasal Cannula Nasal Cannula Nasal Cannula O2 Flow Rate 2.0 2.0 2.0 2.0 08/05/19 08/05/19 08/05/19 08/05/19 20:00 21:40 22:40 23:07 Pulse 55 Resp 16 B/P (MAP) 102/54 (70) Pulse Ox 96 96 98 O2 Delivery Nasal Cannula Nasal Cannula Nasal Cannula Nasal Cannula O2 Flow Rate 2.0 2.0 2.0 2.0 08/06/19 08/06/19 08/06/19 08/06/19 03:27 05:47 05:47 09:26 Temp 97.3 97.3 Pulse 58 62 B/P (MAP) 123/64 (83) 148/64 Pulse Ox 90 O2 Delivery Nasal Cannula Nasal Cannula Nasal Cannula O2 Flow Rate 2.0 3.0 3.0 08/06/19 09:27 Pulse 61 B/P (MAP) 148/64 Intake and Output 08/05/19 08/05/19 08/06/19 15:00 23:00 07:00 Intake Total 100 ml 300 ml 220 ml Output Total 0 ml Balance 100 ml 300 ml 220 ml Nutrition Consultation Dietary Evaluation: Recommendations by RD: Dietary education by RD, Increase Calorie Intake, Protein supplementation Comments: REC continue w/cardiac diet, add ground meats per pt request REC Ensure (strawberry) TID [place] food preferences and provide snacks as requested Expected Outcomes/Goals: PO intake to meet >75% est needs Malnutrition Findings: Body Fat Depletion (Non Severe: Mild Depletion Weight Status: Appropriate CHENG BRUNO MD August 06, 2019 10:15
[2019-08-06 11:00] VITALS: BP 148/64
--- NOTE | 2019-08-06 12:41 | PDOC ---
SUBJECTIVE ROS No complaints OBJECTIVE Vital Signs Vital Signs Date Time Temp Pulse Resp B/P (MAP) Pulse Ox O2 Delivery O2 Flow Rate FiO2 08/06/19 10:52 94 Nasal Cannula 2.0 08/06/19 09:27 61 148/64 08/06/19 08:10 98.2 20 98.2 I & 0 Intake and Output 08/06/19 06:59 Intake Total 620 ml Output Total 0 ml Balance 620 ml Intake Oral 620 ml Output Urine Total 0 ml Stool Total 0 ml # Voids 2 # Bowel Movements 1 PHYSICAL EXAM Physical Exam GEN NAD HEENT: OM moist Neck supple LUNGS: diminished bases, non labored Heart: irregularly irregular (AFIB- rate controlled) Abdomen: Soft N/T Extremities: 2-+ bilateral LE edema Neurology: alert, oriented, follow commands No alex Skin No rash DIAGNOSIS/ASSESSMENT Assessment & Plan NEGRITO- worsening kidney function , stable UOP not recorded Switched from IV lasix (40 BID) to PO 40 qd on 08/04 , recommend holding Lasix, Supportive care, Strict I/O daily Standing wt, , daily BMP Acute on chronic diastolic/systolic CHF- On Diuretics, Cardiology managing CKD stage 3 - UA unremarkable, Renal US- echogenecity + Supportive care, avoid nephrotoxins, Monitor Hx of NEGRITO recently HyperKalemia- recd Kayexalate Hyponatremia - resolved Anemia - chronic Acute on chronic respiratory failure- multifactorial with a/c systolic CHF, COPD, COVID recently negative. NICM; LVEF 40-45% Recent cath without obstructive disease PAFIB/flutter; presently AFIB/flutter Severe pulmonary HTN/cor pulmonale Dw Dr. Bowers and Cardiology COMMENT/RELEVANT DATA Meds Current Medications Medications (Trade) Dose Ordered Sig/Karen Start Time Stop Time Status Last Admin Dose Admin Albuterol Sulfate (Ventolin Neb Soln) 2.5 mg PRN Q4HRS PRN 08/02/19 13:30 08/04/19 00:30 2.5 MG Albuterol/ Ipratropium (Duoneb) 3 ml RTQID 08/02/19 16:00 08/06/19 10:51 3 ML Amiodarone HCl (Cordarone) 200 mg DAILY 08/03/19 09:00 08/06/19 09:27 200 MG Apixaban (Eliquis) 2.5 mg BID 08/02/19 21:00 08/06/19 09:24 2.5 MG Atropine Sulfate (ATROPINE 1mg SYRINGE) 1 mg STK-MED ONCE 08/04/19 14:21 08/04/19 14:21 DC Benzonatate (Tessalon Perle) 100 mg TID 08/02/19 14:30 08/06/19 09:24 100 MG Bisacodyl (Dulcolax Supp) 10 mg 1X ONCE 08/05/19 13:00 08/05/19 13:01 DC 08/05/19 15:35 10 MG Budesonide (Pulmicort) 0.5 mg RTBID 08/02/19 20:00 08/06/19 05:47 0.5 MG Docusate Sodium (Colace) 100 mg BID 08/04/19 21:00 08/06/19 09:24 100 MG Fluticasone Propionate (Flonase) 2 spray DAILY 08/03/19 09:00 08/06/19 09:23 2 SPRAY Furosemide (Lasix) 40 mg DAILY 08/05/19 14:00 08/06/19 09:27 40 MG Info (Anti-Coagulation Monitoring By Pharmacy) 1 each PRN DAILY PRN 08/02/19 13:15 08/04/19 14:20 1 EACH Lactobacillus Rhamnosus (Culturelle) 1 cap BID 08/02/19 21:00 08/06/19 09:24 1 CAP Levofloxacin/ Dextrose 50 ml @ 50 mls/hr Q24H 08/02/19 16:00 08/05/19 16:22 50 MLS/HR Levothyroxine Sodium (Synthroid) 100 mcg DAILY06 08/03/19 06:00 08/06/19 06:09 100 MCG Magnesium Sulfate 50 ml @ 25 mls/hr 1X ONCE 08/05/19 09:00 08/05/19 10:59 DC Metoprolol Succinate (Toprol Xl) 25 mg DAILY 08/05/19 09:00 08/06/19 09:26 25 MG Metoprolol Tartrate (Lopressor) 25 mg BID 08/02/19 21:00 08/05/19 08:06 DC 08/04/19 20:19 25 MG Morphine Sulfate (Morphine Sulfate) 2 mg PRN Q2HR PRN 08/02/19 01:00 08/03/19 00:59 DC Nicotine (Nicoderm Cq 21mg) 1 patch PRN DAILY PRN 08/02/19 13:56 Ondansetron HCl (Zofran) 4 mg PRN Q8HRS PRN 08/02/19 01:00 08/03/19 00:59 DC Oxycodone/ Acetaminophen (Percocet 5/325) 1 tab PRN Q6HRS PRN 08/02/19 17:30 08/05/19 21:40 1 TAB Propofol (Diprivan) 200 mg STK-MED ONCE 08/04/19 13:26 08/04/19 13:26 DC Sodium Polystyrene Sulfonate (Kayexalate) 15 gm 1X ONCE 08/06/19 09:00 08/06/19 09:01 DC 08/06/19 09:27 15 GM Sodium Chloride 1,000 ml @ 1,000 mls/hr 1X ONCE 08/04/19 14:00 08/04/19 14:59 DC 08/04/19 14:00 1,000 MLS/HR Sodium Chloride (Normal Saline Flush) 10 ml QSHIFT PRN 08/04/19 11:00 Temazepam (Restoril) 15 mg PRN QHS PRN 08/04/19 19:45 08/05/19 21:40 15 MG Lab Laboratory Tests Test 08/06/19 04:09 Sodium Level 136 mmol/L (136-145) Potassium Level 5.6 mmol/L (3.5-5.1) Chloride Level 95 mmol/L (98-107) Carbon Dioxide Level 31 mmol/L (21-32) Anion Gap 10 (6-14) Blood Urea Nitrogen 43 mg/dL (7-20) Creatinine 2.2 mg/dL (0.6-1.0) Estimated GFR (Cockcroft-Gault) 27.2 BUN/Creatinine Ratio 20 (6-20) Glucose Level 63 mg/dL (70-99) Calcium Level 8.5 mg/dL (8.5-10.1) Total Bilirubin 0.5 mg/dL (0.2-1.0) Aspartate Amino Transf (AST/SGOT) 61 U/L (15-37) Alanine Aminotransferase (ALT/SGPT) 61 U/L (14-59) Alkaline Phosphatase 66 U/L (46-116) Total Protein 6.3 g/dL (6.4-8.2) Albumin 3.1 g/dL (3.4-5.0) Albumin/Globulin Ratio 1.0 (1.0-1.7) Results All relevant outside records, renal labs, imaging studies, telemetry/EKG's were reviewed. ALTAGRACIA BLANTON MD August 06, 2019 12:41
[2019-08-06 15:00] VITALS: BP 129/57
[2019-08-06 16:34] LABS: CALCIUM 8.6 mg/dL (8.5-10.1); CREATININE 2.2 mg/dL (0.6-1.0); GFR 27.2; POTASSIUM 4.6 mmol/L (3.5-5.1)
[2019-08-06 19:58] VITALS: BP 136/71
[2019-08-06 22:30] VITALS: BP 134/65
[2019-08-07] MEDS: oxyCODONE/APAP 5/325 1 TAB TABLET PO PRN (00:07)
[2019-08-07 02:53] VITALS: BP 140/67
[2019-08-07] MEDS: LEVOTHYROXINE 100 MCG TABLET PO SCH (03:44)
[2019-08-07 06:25] VITALS: BP 128/71
[2019-08-07] MEDS: BUDESONIDE 0.5 MG/2 ML NEBU. NEB SCH (07:26)
[2019-08-07] MEDS: IPRATRPIUM/ALBUTEROL 0.5/2.5MG 3 ML NEBU. NEB SCH ×2 (07:26→11:42)
[2019-08-07] MEDS: APIXABAN 2.5 MG TABLET. PO SCH (09:14)
[2019-08-07] MEDS: DOCUSATE SODIUM 100 MG CAPSULE. PO SCH (09:14)
[2019-08-07] MEDS: FUROSEMIDE 40 MG TABLET. PO SCH (09:14)
[2019-08-07] MEDS: AMIODARONE HCL 200 MG TABLET. PO SCH (09:14)
[2019-08-07] MEDS: LACTOBACILLUS RHAMNOSUS GG 1 CAPSULE. PO SCH (09:14)
[2019-08-07] MEDS: BENZONATATE 100 MG CAPSULE. PO SCH (09:14)
[2019-08-07] MEDS: FLUTICASONE 50MCG/NASAL SPRAY 16GM BOTTLE. NS SCH (09:15)
[2019-08-07] MEDS: METOPROLOL SUCC 24HR ER 25 MG TAB.ER.24H. PO SCH (09:15)
[2019-08-07 10:09] VITALS: BP 124/69
--- NOTE | 2019-08-07 10:35 | NUR ---
IP: Pt is COVID negative.
[2019-08-07] MEDS: ALBUTEROL SULFATE 2.5 MG/3 ML NEBU. NEB PRN (11:40)
[2019-08-07] MEDS ORDERED: LACT1CAP19 PO (12:04)
[2019-08-07] MEDS ORDERED: FURO-68 PO (12:07)
--- NOTE | 2019-08-07 12:10 | SNU/HH DC ---
DISCHARGE ORDERS DISCHARGE INFORMATION: DISCHARGE DATE: August 07, 2019 FINAL DIAGNOSIS Problems Medical Problems: (1) CHF (congestive heart failure) Status: Acute CONDITION ON DISCHARGE: Stable CODE STATUS: Code Status: Full [facility]: SNF STAY <30 DAYS: Yes POST DISCHARGE ORDERS: ACTIVITY ORDERS: Activity as tolerated WEIGHT BEARING STATUS: As tolerated BATHING ORDERS: No Tub Bath until see Dr. DEL ANGEL AFTER DISCHARGE: Cardiac WOUND/INCISION CARE: Other, see below CHECKS AFTER DISCHARGE: CHECKS AFTER DISCHARGE: Check blood press - daily, Weigh Yourself Daily TREATMENT/EQUIPMENT ORDERS: ADAPTIVE EQUIPMENT NEEDED: None RESPIRATORY EQUIPMENT NEEDED: Oxygen, Nebulizer Physical Therapy For: Evalulation/Treatment Occupational Therapy For: Evaluation/Treatment Speech Language Pathology For: Evaluation/Treatment DISCHARGE MEDICATIONS: Home Meds Active Scripts Furosemide (LASIX) 40 Mg Tablet, 1 TAB PO DAILY for CHF for 30 Days, #30 TAB 0 Refills Prov:CHENG BRUNO MD 08/07/19 Lactobacillus Rhamnosus Gg (CULTURELLE) 1 Each Cap.sprink, 1 CAP PO BID for probiotic for 30 Days, #60 CAP Prov:CHENG BRUNO MD 08/07/19 Budesonide (BUDESONIDE) 0.5 Mg/2 Ml Ampul.neb, 0.5 MG NEB RTBID for LUNGS for 30 Days, #60 EACH Prov:RUPERTO BAHNEA MD 07/05/19 Amiodarone Hcl (AMIODARONE HCL) 200 Mg Tablet, 200 MG PO DAILY for HEART RHYTHM for 30 Days, #30 TAB Prov:RUPERTO BAHENA MD 07/05/19 Albuterol Sulfate (Proair Hfa) 8.5 Gm Hfa.aer.ad, 2.5 MG NEB PRN Q4HRS PRN for SHORTNESS OF BREATH for 30 Days, #60 EACH Prov:RUPERTO BAHENA MD 07/05/19 Ipratropium/Albuterol Sulfate (DUONEB 0.5-3(2.5) MG/3 ML) 3 Ml Ampul.neb, 3 ML NEB RTQID for COUGH, SOA for 30 Days, #120 EACH Prov:RUPERTO BAHENA MD 07/05/19 Apixaban (ELIQUIS) 2.5 Mg Tablet, 2.5 MG PO BID for permanent a fib for 60 Days, #120 TAB Prov:SANJUANITA PEÑA MD 04/12/19 Metoprolol Tartrate (METOPROLOL TARTRATE) 25 Mg Tablet, 25 MG PO BID for htn, hyperthyroid, #60 TAB Prov:SANJUANITA PEÑA MD 02/13/19 [Nicotine 21MG] 1 PATCH PATCH No Conflict Check, 1 PATCH TD PRN DAILY PRN for SMOKING CESSATION MDD 1, #14 Prov:SANJUANITA PEÑA MD 07/25/18 Benzonatate (TESSALON PERLE) 100 Mg Capsule, 1 CAP PO TID, #30 CAP Prov:PRO LLOYD APRN 06/14/18 Fluticasone Propionate (Flonase Allergy Relief) 9.9 Ml [place].susp, 2 SPRAYS NS DAILY, #1 BOTTLE Prov:PRO LLOYD APRN 06/14/18 Reported Medications Levothyroxine Sodium (LEVOTHYROXINE SODIUM) 100 Mcg Tablet, 1 TAB PO DAILY for hypothyroid, #30 TAB 5 Refills 07/25/19 Potassium Chloride (KLOR-CON M20) 20 Meq Tab.er.prt, 20 MEQ PO BID for POTASSIUM, TAB.SR NEW PRESCRIPTIONS 04/28/19 Discontinued Reported Medications Furosemide (FUROSEMIDE) 40 Mg Tablet, 40 MG PO BID for CHF, TAB 07/25/19 Discontinued Scripts Doxycycline Hyclate (DOXYCYCLINE HYCLATE) 100 Mg Tablet, 1 TAB PO BID for bronchitis, #10 TAB Prov:CHENG BRUNO MD 07/28/19 CHENG BRUNO MD August 07, 2019 12:10
--- NOTE | 2019-08-07 12:17 | PDOC3 ---
Discharge Summary Visit Information Date of Admission: August 02, 2019 Date of Discharge: August 07, 2019 Admitting Diagnosis Comment: Acute on chronic systolic and diastolic heart failure in an elderly female who has multiple comorbidities. Final Diagnosis Problems Medical Problems: Acute on chronic respiratory failure secondary to multiple etiologies including congestive heart failure chronic in nature systolic dysfunction, underlying COPD, chronic kidney disease Improved Acute exacerbation of chronic obstructive pulmonary disease Improved Recently treated for HCAP, CKD stage III with acute kidney failure most likely diuretic use, it has been adjusted with the help of cardiology and nephrology, quite difficult balance. A- fib, PCN allergy Severe pulmonary hypertension with cor pulmonale Moderate pulmonary hypertension with elevated left ventricular and right ventriclular filling pressures recent cath 04/19 No evidence of intracardial shunt Anemia of chronic disease Paroxysmal atrial fibrillation with history of being on anticoagulation NICM; LVEF 45% Recent cath without obstructive disease Coronary artery disease HYPOMAGNESEMIA replaced Brief Hospital Course Allergies Allergies Coded Allergies Type Severity Reaction Last Updated Verified Penicillins Allergy Severe anaphylaxis 06/10/19 Yes Vital Signs Vital Signs Date Time Temp Pulse Resp B/P (MAP) Pulse Ox O2 Delivery O2 Flow Rate FiO2 08/07/19 11:43 Nasal Cannula 2.0 08/07/19 10:09 97.7 62 18 124/69 (87) 97 97.7 Lab Results Laboratory Tests Test 08/05/19 17:30 08/06/19 04:09 08/06/19 15:40 Coronavirus (COVID-19)(PCR) See separate report Sodium Level 136 mmol/L (136-145) 132 mmol/L (136-145) Potassium Level 5.6 mmol/L (3.5-5.1) 4.6 mmol/L (3.5-5.1) Chloride Level 95 mmol/L (98-107) 93 mmol/L (98-107) Carbon Dioxide Level 31 mmol/L (21-32) 33 mmol/L (21-32) Anion Gap 10 (6-14) 6 (6-14) Blood Urea Nitrogen 43 mg/dL (7-20) 46 mg/dL (7-20) Creatinine 2.2 mg/dL (0.6-1.0) 2.2 mg/dL (0.6-1.0) Estimated GFR (Cockcroft-Gault) 27.2 27.2 BUN/Creatinine Ratio 20 (6-20) Glucose Level 63 mg/dL (70-99) 72 mg/dL (70-99) Calcium Level 8.5 mg/dL (8.5-10.1) 8.6 mg/dL (8.5-10.1) Total Bilirubin 0.5 mg/dL (0.2-1.0) Aspartate Amino Transf (AST/SGOT) 61 U/L (15-37) Alanine Aminotransferase (ALT/SGPT) 61 U/L (14-59) Alkaline Phosphatase 66 U/L (46-116) Total Protein 6.3 g/dL (6.4-8.2) Albumin 3.1 g/dL (3.4-5.0) Albumin/Globulin Ratio 1.0 (1.0-1.7) Laboratory Tests Test 08/06/19 15:40 Sodium Level 132 mmol/L (136-145) Potassium Level 4.6 mmol/L (3.5-5.1) Chloride Level 93 mmol/L (98-107) Carbon Dioxide Level 33 mmol/L (21-32) Anion Gap 6 (6-14) Blood Urea Nitrogen 46 mg/dL (7-20) Creatinine 2.2 mg/dL (0.6-1.0) Estimated GFR (Cockcroft-Gault) 27.2 Glucose Level 72 mg/dL (70-99) Calcium Level 8.6 mg/dL (8.5-10.1) Brief Hospital Course [facility] [address] [place] [address] HISTORY AND PHYSICAL PATIENT: JAZZY BOBBY ACCOUNT: [id number] : 1955 LOC: [address] [place] [address] AGE: 64 SEX: F STATUS: ADM IN LOCATION: [address] [place] [address] ADMIT DATE: 08/02/2019 CHIEF COMPLAINT: Shortness of breath. HISTORY OF PRESENT ILLNESS: The patient is a pleasant 64-year-old female well known to my service. We have admitted her multiple times over the past year or so. She has end-stage COPD and heart failure, multiple comorbidities. She also has some dementia. At one point, we had her on hospice within the past couple of months, but she did better and then came back to the hospital with more respiratory failure, but this last time she decided not to go back on hospice. Now, she is back with heart failure again. I discussed the case with ER physician. We are going to admit the patient and consult Cardiology. Patient admited for treatment of her recurrent symptoms. She is a high risk for readmission given her advanced age and multiple comorbidities. Patient was given diuresis in order to address her edema that she came in with. Her heart rate was also playing a role since it was uncontrolled and the decision was made to perform a cardioversion on the patient recommendations when to continue with amiodarone and Eliquis and to hold the DASIA inhibitor due to the acute renal insufficiency and hyperkalemia continue with diuresis as per automation consultant clifford once a day pending covid so [facility] Follow urinary output and urine function tests Continue anticoagulation No DASIA or Arps in light of her acute renal failure Continue supportive measures Grim prognosis with patient's family and daughter who is the POA want "everything done". Patient with multiple admissions throughout this year 10 since late 2018 so far quite poor prognosis and this is infringing certainly on her quality of life. Patient has been in hospice recently and is certainly appropriate to go back on hospice nevertheless there seems to be persistent in spite of family members who cannot understand the importance of quality of life and Ms Jazzy's case Greater than 35 minutes were spent in the discharge process with the patient in counseling coordination of care and arrangements for a safe discharge Assessment Assessment HEENT: Neck Supple W Full Motion Chest: Symmetric LUNGS: Other (diminished throughout, basilar crackles) Heart: RRR (SR) Abdomen: Soft N/T Extremities: Other (3+ bilateral LE edema ) Neurology: alert, oriented, follow commands Discharge Information Condition at Discharge: Improved Follow Up: Weeks Disposition/Orders: D/C to Another Facility Scheduled Amiodarone Hcl (Amiodarone Hcl) 200 Mg Tablet, 200 MG PO DAILY for HEART RHYTHM for 30 Days, #30 Prescribed by: RUPERTO BAHENA MD on 07/05/19 1439 Last Action: Continued on 08/02/19 1257 by CHANELL MCCALL APRN Apixaban (Eliquis) 2.5 Mg Tablet, 2.5 MG PO BID for permanent a fib for 60 Days, #120 Prescribed by: SANJUANITA PEÑA on 04/12/19 1408 Last Action: Continued on 08/02/19 1257 by CHANELL MCCALL APRN Benzonatate (Tessalon Perle) 100 Mg Capsule, 1 CAP PO TID, #30 Prescribed by: Nieves Villafana APRN on 06/14/181206 Last Action: Continued on 08/02/191321 by CHANELL ESPINOZA Budesonide (Budesonide) 0.5 Mg/2 Ml Ampul.neb, 0.5 MG NEB RTBID for LUNGS for 30 Days, #60 Prescribed by: RUPERTO BAHENA MD on 07/05/19 1439 Last Action: Continued on 08/02/191321 by CHANELL ESPINOZA Fluticasone Propionate (Flonase Allergy Relief) 9.9 Ml [place].susp, 2 SPRAYS NS DAILY, #1 Prescribed by: Nieves Villafana APRN on 06/14/18 120 Last Action: Converted on 08/02/191321 by CHANELL ESPINOZA Furosemide (Lasix) 40 Mg Tablet, 1 TAB PO DAILY for CHF for 30 Days, #30 Ref 0 Prescribed by: CHENG BRUNO MD on 08/07/19 1207 Ipratropium/Albuterol Sulfate (Duoneb 0.5-3(2.5) Mg/3 Ml) 3 Ml Ampul.neb, 3 ML NEB RTQID for COUGH, SOA for 30 Days, #120 Prescribed by: RUPERTO BAHENA MD on 07/05/19 1439 Last Action: Continued on 08/02/191321 by CHANELL ESPINOZA Lactobacillus Rhamnosus Gg (Culturelle) 1 Each Cap.sprink, 1 CAP PO BID for probiotic for 30 Days, #60 Prescribed by: CHENG BRUNO MD on 08/07/19 1204 Levothyroxine Sodium (Levothyroxine Sodium) 100 Mcg Tablet, 1 TAB PO DAILY for hypothyroid, #30 Ref 5 (Reported) Entered as Reported by: ROXANNE CHEN on 07/25/19 1702 Last Action: Continued on 08/02/191321 by CHANELL ESPINOZA Metoprolol Tartrate (Metoprolol Tartrate) 25 Mg Tablet, 25 MG PO BID for htn, hyperthyroid, #60 Prescribed by: SANJUANITA PEÑA on 02/13/19 0749 Last Action: Continued on 08/02/19 1257 by CHANELL STEFANY, TAP OUT OPERATOR Potassium Chloride (Klor-Con M20) 20 Meq Tab.er.prt, 20 MEQ PO BID for POTASSIUM, (Reported) NEW PRESCRIPTIONS Entered as Reported by: Ronald Soni on 04/28/19 1528 Last Action: Reviewed on 08/02/19300 by Shivani Coates Scheduled PRN Albuterol Sulfate (Proair Hfa) 8.5 Gm Hfa.aer.ad, 2.5 MG NEB PRN Q4HRS PRN for SHORTNESS OF BREATH for 30 Days, #60 Prescribed by: RUPERTO BAHENA MD on 07/05/19 1439 Last Action: Continued on 08/02/191321 by CHANELL ESPINOZA [Nicotine 21MG] 1 PATCH PATCH, 1 PATCH TD PRN DAILY PRN for SMOKING CESSATION MDD 1, #14 Prescribed by: SANJUANITA PEÑA on 07/25/18 0956 Last Action: Converted on 08/02/191321 by CHANELL ESPINOZA Discontinued Medications Doxycycline Hyclate (Doxycycline Hyclate) 100 Mg Tablet, 1 TAB PO BID for bronchitis, #10 Prescribed by: CHENG BRUNO MD on 07/28/19 1109 Furosemide (Furosemide) 40 Mg Tablet, 40 MG PO BID for CHF, (Reported) Entered as Reported by: ROXANNE CHEN on 07/25/19 1700 Last Action: Reviewed on 08/02/19300 by CHENG Villafuerte MD August 07, 2019 12:17
--- NOTE | 2019-08-07 13:50 | PDOC ---
PROGRESS NOTES Subjective Subjective SEEN IN FOLLOW UP OF ARF AND CKD Objective Objective Vital Signs Date Time Temp Pulse Resp B/P (MAP) Pulse Ox O2 Delivery O2 Flow Rate FiO2 08/07/19 11:43 Nasal Cannula 2.0 08/07/19 10:09 97.7 62 18 124/69 (87) 97 97.7 Intake and Output 08/07/19 07:00 Intake Total 1020 ml Balance 1020 ml Intake Oral 1020 ml # Voids 2 # Bowel Movements 1 Physical Exam Abdomen: Normal bowel sounds, Soft, No tenderness, No hepatosplenomegaly, No masses Heart: Regular rate, Normal S1, Normal S2, No murmurs, Gallops Extremities: No clubbing, No cyanosis, No edema, Normal pulses, No tenderness/swelling General: Alert, Oriented X3, Cooperative, No acute distress Lungs: Clear to auscultation, Normal air movement Psych/Mental Status: Mental status NL, Mood NL Diagnosis RENAL FAILURE: Chronic (CKD stage III) Assessment Assessment Problems Medical Problems: (1) CHF (congestive heart failure) Status: Acute Plan Plan of Care RENAL FUNCTION IS IMPROVING. APPROACHING BASELINE. CONT FLUID BALANCE. Comment Review of Relevant I have reviewed the following items suad (where applicable) has been applied. Labs Laboratory Tests Test 08/05/19 17:30 08/06/19 04:09 08/06/19 15:40 Coronavirus (COVID-19)(PCR) See separate report Sodium Level 136 mmol/L (136-145) 132 mmol/L (136-145) Potassium Level 5.6 mmol/L (3.5-5.1) 4.6 mmol/L (3.5-5.1) Chloride Level 95 mmol/L (98-107) 93 mmol/L (98-107) Carbon Dioxide Level 31 mmol/L (21-32) 33 mmol/L (21-32) Anion Gap 10 (6-14) 6 (6-14) Blood Urea Nitrogen 43 mg/dL (7-20) 46 mg/dL (7-20) Creatinine 2.2 mg/dL (0.6-1.0) 2.2 mg/dL (0.6-1.0) Estimated GFR (Cockcroft-Gault) 27.2 27.2 BUN/Creatinine Ratio 20 (6-20) Glucose Level 63 mg/dL (70-99) 72 mg/dL (70-99) Calcium Level 8.5 mg/dL (8.5-10.1) 8.6 mg/dL (8.5-10.1) Total Bilirubin 0.5 mg/dL (0.2-1.0) Aspartate Amino Transf (AST/SGOT) 61 U/L (15-37) Alanine Aminotransferase (ALT/SGPT) 61 U/L (14-59) Alkaline Phosphatase 66 U/L (46-116) Total Protein 6.3 g/dL (6.4-8.2) Albumin 3.1 g/dL (3.4-5.0) Albumin/Globulin Ratio 1.0 (1.0-1.7) Laboratory Tests Test 08/06/19 15:40 Sodium Level 132 mmol/L (136-145) Potassium Level 4.6 mmol/L (3.5-5.1) Chloride Level 93 mmol/L (98-107) Carbon Dioxide Level 33 mmol/L (21-32) Anion Gap 6 (6-14) Blood Urea Nitrogen 46 mg/dL (7-20) Creatinine 2.2 mg/dL (0.6-1.0) Estimated GFR (Cockcroft-Gault) 27.2 Glucose Level 72 mg/dL (70-99) Calcium Level 8.6 mg/dL (8.5-10.1) Microbiology 08/01/19 Urine Culture - Final, Complete 08/01/19 Urine Culture Result 1 (SUMMER) - Final, Complete Medications Current Medications Albuterol/ Ipratropium (Duoneb) 3 ml 1X ONCE NEB Last administered on 08/01/19at 23:57; Start 08/01/19 at 23:00; Stop 08/01/19 at 23:01; Status DC Ondansetron HCl (Zofran) 4 mg PRN Q8HRS PRN IV NAUSEA/VOMITING; Start 08/02/19 at 01:00; Stop 08/03/19 at 00:59; Status DC Morphine Sulfate (Morphine Sulfate) 2 mg PRN Q2HR PRN IV PAIN; Start 08/02/19 at 01:00; Stop 08/03/19 at 00:59; Status DC Furosemide (Lasix) 60 mg 1X ONCE IVP Last administered on 08/02/19at 02:14; Start 08/02/19 at 01:30; Stop 08/02/19 at 01:31; Status DC Furosemide (Lasix) 40 mg 1X ONCE IVP Last administered on 08/02/19 14:28; Start 08/02/19 at 13:00; Stop 08/02/19 at 13:01; Status DC Amiodarone HCl (Cordarone) 200 mg DAILY PO Last administered on 08/07/19 09:14; Start 08/03/19 at 09:00 Apixaban (Eliquis) 2.5 mg BID PO Last administered on 08/07/19 09:14; Start 08/02/19 at 21:00 Metoprolol Tartrate (Lopressor) 25 mg BID PO Last administered on 08/04/19 20:19; Start 08/02/19 at 21:00; Stop 08/05/19 at 08:06; Status DC Info (Anti-Coagulation Monitoring By Pharmacy) 1 each PRN DAILY PRN MC SEE COMMENTS Last administered on 08/04/19 14:20; Start 08/02/19 at 13:15 Albuterol Sulfate (Ventolin Neb Soln) 2.5 mg PRN Q4HRS PRN NEB SHORTNESS OF BREATH Last administered on 08/07/19 11:40; Start 08/02/19 at 13:30 Benzonatate (Tessalon Perle) 100 mg TID PO Last administered on 08/07/19 09:14; Start 08/02/19 at 14:30 Budesonide (Pulmicort) 0.5 mg RTBID NEB Last administered on 08/07/19 07:26; Start 08/02/19 at 20:00 Albuterol/ Ipratropium (Duoneb) 3 ml RTQID NEB Last administered on 08/07/19 11:42; Start 08/02/19 at 16:00 Levothyroxine Sodium (Synthroid) 100 mcg DAILY06 PO Last administered on 08/07/19 03:44; Start 08/03/19 at 06:00 Fluticasone Propionate (Flonase) 2 spray DAILY NS Last administered on 08/07/19 09:15; Start 08/03/19 at 09:00 Nicotine (Nicoderm Cq 21mg) 1 patch PRN DAILY PRN TD NICOTINE W/DRAWAL Last administered on 08/07/19 09:14; Start 08/02/19 at 13:56 Levofloxacin/ Dextrose 50 ml @ 50 mls/hr Q24H IV Last administered on 08/05/19 16:22; Start 08/02/19 at 16:00; Stop 08/06/19 at 14:09; Status DC Lactobacillus Rhamnosus (Culturelle) 1 cap BID PO Last administered on 08/07/19 09:14; Start 08/02/19 at 21:00 Oxycodone/ Acetaminophen (Percocet 5/325) 1 tab PRN Q6HRS PRN PO PAIN Last administered on 08/07/19 00:07; Start 08/02/19 at 17:30 Furosemide (Lasix) 40 mg BID94 IVP Last administered on 08/04/19 16:36; Start 08/03/19 at 09:00; Stop 08/05/19 at 08:05; Status DC Magnesium Sulfate 50 ml @ 25 mls/hr 1X ONCE IV Last administered on 08/04/19 11:39; Start 08/04/19 at 11:00; Stop 08/04/19 at 12:59; Status DC Sodium Chloride (Normal Saline Flush) 10 ml QSHIFT PRN IV AFTER MEDS AND BLOOD DRAWS; Start 08/04/19 at 11:00 Propofol (Diprivan) 200 mg STK-MED ONCE IV ; Start 08/04/19 at 13:26; Stop 08/04/19 at 13:26; Status DC Sodium Chloride 1,000 ml @ 1,000 mls/hr 1X ONCE IV Last administered on 08/04/19at 14:00; Start 08/04/19 at 14:00; Stop 08/04/19 at 14:59; Status DC Atropine Sulfate (ATROPINE 1mg SYRINGE) 1 mg STK-MED ONCE .ROUTE ; Start 08/04/19 at 14:21; Stop 08/04/19 at 14:21; Status DC Temazepam (Restoril) 15 mg PRN QHS PRN PO INSOMNIA Last administered on 08/05/19at 21:40; Start 08/04/19 at 19:45 Docusate Sodium (Colace) 100 mg BID PO Last administered on 08/07/19 09:14; Start 08/04/19 at 21:00 Furosemide (Lasix) 40 mg DAILY PO ; Start 08/05/19 at 11:00; Stop 08/05/19 at 10:51; Status DC Metoprolol Succinate (Toprol Xl) 25 mg DAILY PO Last administered on 08/07/19at 09:15; Start 08/05/19 at 09:00 Magnesium Sulfate 50 ml @ 25 mls/hr 1X ONCE IV ; Start 08/05/19 at 09:00; Stop 08/05/19 at 10:59; Status DC Furosemide (Lasix) 40 mg DAILY PO Last administered on 08/07/19at 09:14; Start 08/05/19 at 14:00 Bisacodyl (Dulcolax Supp) 10 mg PRN DAILY PRN MT CONSTIPATION; Start 08/05/19 at 13:00 Bisacodyl (Dulcolax Supp) 10 mg 1X ONCE MT Last administered on 08/05/19at 15:35; Start 08/05/19 at 13:00; Stop 08/05/19 at 13:01; Status DC Sodium Polystyrene Sulfonate (Kayexalate) 15 gm 1X ONCE PO Last administered on 08/06/19at 09:27; Start 08/06/19 at 09:00; Stop 08/06/19 at 09:01; Status DC Active Scripts Active Lasix (Furosemide) 40 Mg Tablet 1 Tab PO DAILY 30 Days Culturelle (Lactobacillus Rhamnosus Gg) 1 Each Cap.sprink 1 Cap PO BID 30 Days Budesonide 0.5 Mg/2 Ml Ampul.neb 0.5 Mg NEB RTBID 30 Days Amiodarone Hcl 200 Mg Tablet 200 Mg PO DAILY 30 Days Proair Hfa (Albuterol Sulfate) 8.5 Gm Hfa.aer.ad 2.5 Mg NEB PRN Q4HRS PRN 30 Days Duoneb 0.5-3(2.5) Mg/3 Ml (Albuterol/Ipratropium) 3 Ml Ampul.neb 3 Ml NEB RTQID 30 Days Eliquis (Apixaban) 2.5 Mg Tablet 2.5 Mg PO BID 60 Days Metoprolol Tartrate 25 Mg Tablet 25 Mg PO BID [Nicotine 21MG] 1 PATCH Patch 1 Patch TD PRN DAILY PRN MDD 1 Tessalon Perle (Benzonatate) 100 Mg Capsule 1 Cap PO TID Flonase Allergy Relief (Fluticasone Propionate) 9.9 Ml [place].susp 2 Sprays NS DAILY Reported Levothyroxine Sodium 100 Mcg Tablet 1 Tab PO DAILY Klor-Con M20 (Potassium Chloride) 20 Meq Tab.er.prt 20 Meq PO BID NEW PRESCRIPTIONS Vitals/I & O Vital Sign - Last 24 Hours 08/06/19 08/06/19 08/06/19 08/06/19 15:00 15:24 19:36 19:37 Temp 98.0 98.0 Pulse 66 Resp 18 B/P (MAP) 129/57 (81) Pulse Ox 96 95 95 96 O2 Delivery Nasal Cannula Nasal Cannula Nasal Cannula Nasal Cannula O2 Flow Rate 2.0 2.0 2.0 2.0 08/06/19 08/06/19 08/06/19 08/07/19 19:58 20:00 22:30 00:07 Temp 98.2 98.8 98.2 98.8 Pulse 67 64 Resp 18 18 B/P (MAP) 136/71 (92) 134/65 (88) Pulse Ox 95 97 O2 Delivery Nasal Cannula Nasal Cannula Nasal Cannula Nasal Cannula O2 Flow Rate 2.0 2.0 2.0 2.0 08/07/19 08/07/19 08/07/19 08/07/19 01:07 02:53 06:25 07:29 Temp 97.6 97.3 97.6 97.3 Pulse 62 85 Resp 18 18 B/P (MAP) 140/67 (91) 128/71 (90) Pulse Ox 98 99 97 O2 Delivery Nasal Cannula Nasal Cannula Nasal Cannula Nasal Cannula O2 Flow Rate 2.0 2.0 2.0 2.0 08/07/19 08/07/19 08/07/19 08/07/19 07:32 08:00 09:14 09:15 Pulse 85 85 B/P (MAP) 128/71 128/71 Pulse Ox 97 O2 Delivery Nasal Cannula Nasal Cannula O2 Flow Rate 2.0 2.0 08/07/19 08/07/19 10:09 11:43 Temp 97.7 97.7 Pulse 62 Resp 18 B/P (MAP) 124/69 (87) Pulse Ox 97 O2 Delivery Nasal Cannula Nasal Cannula O2 Flow Rate 2.0 2.0 Intake and Output 08/06/19 08/06/19 08/07/19 15:00 23:00 07:00 Intake Total 420 ml 600 ml Balance 420 ml 600 ml Nutrition Consultation Dietary Evaluation: Recommendations by RD: Dietary education by RD, Increase Calorie Intake, Protein supplementation Comments: REC continue w/cardiac diet, add ground meats per pt request REC Ensure (strawberry) TID [place] food preferences and provide snacks as requested Expected Outcomes/Goals: PO intake to meet >75% est needs Malnutrition Findings: Body Fat Depletion (Non Severe: Mild Depletion Weight Status: Appropriate EDWIGE CARRASCO MD August 07, 2019 13:50
--- NOTE | 2019-08-07 14:29 | NUR ---
Discharge Note: JANNET BOBBY Discharge instructions and discharge home medications reviewed NurseJonny. Discussed with Hallie, patient daughter about hospital follow up with cardiology. All questions have been answered and understanding verbalized. The following instructions and handouts were given to patient: CHF. Discharge paper work also given to facility transport. Discontinued iv line and catheter intact. Patient discharged to [facility] care [facility].
== END 2019-08-07 14:00 | disposition home health service (06) | DRG 291 ==
LOC: ER 22:30 → 2 NORTH 08-02 01:26
PROVIDERS: ADMIT Internal Medicine; ATTEND Internal Medicine
PROC: 5A2204Z Restoration of Cardiac Rhythm, Single (ICD-10-PCS; principal; 2019-08-04 14:00)
DX: I13.0 Hypertensive heart and chronic kidney disease with heart failure and stage 1 through stage 4 chronic kidney disease, or unspecified chronic kidney disease (principal); I50.43 Acute on chronic combined systolic (congestive) and diastolic (congestive) heart failure; J96.20 Acute and chronic respiratory failure, unspecified whether with hypoxia or hypercapnia; I48.92 Unspecified atrial flutter; J44.1 Chronic obstructive pulmonary disease with (acute) exacerbation; N17.9 Acute kidney failure, unspecified; I42.8 Other cardiomyopathies; F41.9 Anxiety disorder, unspecified; G89.29 Other chronic pain; K21.9 Gastro-esophageal reflux disease without esophagitis; M19.90 Unspecified osteoarthritis, unspecified site; D63.8 Anemia in other chronic diseases classified elsewhere; E03.9 Hypothyroidism, unspecified; E78.00 Pure hypercholesterolemia, unspecified; E78.5 Hyperlipidemia, unspecified; E83.42 Hypomagnesemia; E87.5 Hyperkalemia; F03.90 Unspecified dementia, unspecified severity, without behavioral disturbance, psychotic disturbance, mood disturbance, and anxiety; I25.10 Atherosclerotic heart disease of native coronary artery without angina pectoris; I27.29 Other secondary pulmonary hypertension; I27.81 Cor pulmonale (chronic); I48.0 Paroxysmal atrial fibrillation; N18.3 Chronic kidney disease, stage 3 (moderate); Z20.828 Contact with and (suspected) exposure to other viral communicable diseases; Z87.891 Personal history of nicotine dependence; Z79.01 Long term (current) use of anticoagulants; Z88.0 Allergy status to penicillin; Z86.73 Personal history of transient ischemic attack (TIA), and cerebral infarction without residual deficits; Z82.49 Family history of ischemic heart disease and other diseases of the circulatory system
CPT/HCPCS: 36415; 36600; 71045; 80048; 80053; 81001; 83735; 83880; 84484; 85025; 87086; 87635; 92960; 93005; 94640; 94642; 94760; 99285; J1940; J1956; J2704; J3475; J7030; 97116-GP; 97530-GO; 97530-GP; 97535-GO; G0378; J7613; J7626

== ENCOUNTER 2019-08-26 15:45 | Inpatient (IN) | payer BC ==
[~2019-08-26] VITALS: Ht 157.5 cm; Wt 58.4 kg
[~2019-08-26 15:45] MED LIST changes: +LACT1CAP19 PO
[2019-08-26 16:39] LABS: BASO % 0 % (0-3); EOS % 0 % (0-3); HEMATOCRIT 34.8 % (36.0-47.0); HEMOGLOBIN 11.1 g/dL (12.0-15.5); LYMPH # 1.4 x10^3/uL (1.0-4.8); LYMPH % 30 % (24-48); MEAN CORPUSCULAR HEMOGLOBIN 31 pg (25-35); MEAN CORPUSCULAR HGB CONC 32 g/dL (31-37); MEAN CORPUSCULAR VOLUME 97 fL (79-100); MONO # 0.2 x10^3/uL (0.0-1.1); MONO % 5 % (0-9); NEUT # 3.2 x10^3/uL (1.8-7.7); NEUT % 65 % (31-73); PLATELET COUNT 283 x10^3/uL (140-400); RED CELL DISTRIBUTION WIDTH 19.1 % (11.5-14.5); WHITE BLOOD COUNT 4.8 x10^3/uL (4.0-11.0)
[2019-08-26 16:46] LABS: PROTHROMBIN TIME PATIENT 35.7 SEC (11.7-14.0)
--- NOTE | 2019-08-26 16:47 | PHYS DOC ---
Past Medical History Past Medical History: Arthritis, CAD, CHF, COPD, Dementia, GERD, High Cho lesterol, Hypertension, Pneumonia, TIA, UTI Additional Past Medical Histor: chronic left knee pain,bld transfusion Past Surgical History: Other Additional Past Surgical Histo: UNKNOWN Smoking Status: Former Smoker Alcohol Use: None Drug Use: None General Adult EDM: Chief Complaint: LOWER EXTREMITY SWELLING HPI: HPI: Patient is a 64 year old female who presents with sent home yesterday from healthcare resort to home with her daughter. Daughter states that her bilateral lower legs seem more swollen than usual and has sent her back. Patient states that she is more short of air than usual but she is wearing 2 L as she does normally and satting within normal limits. Patient also states that she has left-sided chest pain/pressure without radiation. Patient was admitted last on August 01 for CHF and hypoxemia. Her COVID-19 test was negative. Daughter states the patient had a fall yesterday at the healthcare resort and would like her to have x-rays. Patient states that her left wrist hurts and her whole spine hurts. Patient rates her pain 8 out of 10. Review of Systems: Review of Systems: Respiratory: Denies cough. + shortness of breath. [] Cardiovascular: chest pain or edema. [] Musculoskeletal: back pain or wrist joint pain. [] Heart Score: HEART Score for Chest Pain: HEART Score for Chest Pain Response (Comments) Value History Moderately Suspicious 1 ECG Nonspecific Repolarizatio 1 Age >45 - < 65 1 Risk Factors >3 Risk Factors or Hx CAD 2 Troponin < Normal Limit 0 Total 5 Risk Factors: Risk Factors: DM, Current or recent (<one month) smoker, HTN, HLP, family history of CAD, obesity. Risk Scores: Score 0 - 3: 2.5% MACE over next 6 weeks - Discharge Home Score 4 - 6: 20.3% MACE over next 6 weeks - Admit for Clinical Observation Score 7 - 10: 72.7% MACE over next 6 weeks - Early Invasive Strategies Allergies: Allergies: Allergies Coded Allergies Type Severity Reaction Last Updated Verified Penicillins Allergy Severe anaphylaxis 06/10/19 Yes Physical Exam: PE: Constitutional: Well developed, well nourished, no acute distress, non-toxic appearance. [] HENT: Normocephalic, atraumatic, bilateral external ears normal, oropharynx moist, no oral exudates, nose normal. [] Eyes: PERRLA, EOMI, conjunctiva normal, no discharge. [] Neck: Normal range of motion, no tenderness, supple, no stridor. [] Cardiovascular:Heart rate regular rhythm, no murmur [] Lungs & Thorax: Bilateral upper breath sounds clear and lower diminished to auscultation [] Abdomen: Bowel sounds normal, soft, no tenderness, no masses, no pulsatile masses. [] Skin: Warm, dry, no erythema, no rash. [] Back: Cervical, thoracic, lumbar tenderness, no CVA tenderness. [] Extremities: No tenderness, no cyanosis, no clubbing, ROM intact, 3+ edema. [] Neurologic: Alert and oriented X 2, normal motor function, normal sensory function, no focal deficits noted. [] Psychologic: Affect normal, judgement normal, mood normal. Dementia.[] EKG: EK and read by Dr. Carrasco. Sinus bradycardia and no STEMI. Radiology/Procedures: Radiology/Procedures: [] Impression: [address] [address] IMAGING REPORT Signed PATIENT: JANNET BOBBY ACCOUNT: [id number] : 1955 LOCATION: ER AGE: 64 SEX: F EXAM STATUS: REG ER ORD. PHYSICIAN: AMPARO GONZALES APRN REASON: pain, fall PROCEDURE: LUMBAR SPINE 2-3V LUMBAR SPINE 2-3V DATE: 08/26/2019 4:28 PM INDICATION: Reason: pain, fall / Spl. Instructions: / History: COMPARISON: None. FINDINGS: Five non-rib bearing lumbar-type vertebral bodies are present. Bones/Alignment: No evidence of acute compression fracture. There is no listhesis. Joints: Mild to moderate degenerative disc disease. Lower lumbar facet arthropathy Miscellaneous: None. IMPRESSION: No evidence of acute compression fracture. Electronically signed by: Bruce Linares MD (08/26/2019 5:30 PM) [id number] DICTATED and SIGNED BY: BRUCE LINARES MD DATE: 08/26/19 1000 [facility] [address] [place], [place] [id number] IMAGING REPORT Signed PATIENT: JANNET BOBBY ACCOUNT: [id number] : 1955 LOCATION: ER AGE: 64 SEX: F EXAM STATUS: REG ER ORD. PHYSICIAN: AMPARO GONZALES APRN REASON: pain, fall PROCEDURE: THORACIC SPINE 3V THORACIC SPINE 3V DATE: 08/26/2019 4:28 PM INDICATION: Reason: pain, fall / Spl. Instructions: / History: COMPARISON: Chest radiograph 02/13/2019. FINDINGS: The upper thoracic vertebrae are obscured on the lateral view by overlying soft tissue and osseous structures. Bones/Alignment: Mild height loss of several mid thoracic vertebrae appears similar to prior radiographs. Left convex thoracic curvature Joints: The disc space heights are normal. Miscellaneous: Lungs better evaluated on same-day chest radiograph report IMPRESSION: Mild height loss of several mid thoracic vertebrae appears similar to prior radiographs Electronically signed by: Bruce Linares MD (08/26/2019 5:40 PM) [id number] DICTATED and SIGNED BY: BRUCE LINARES MD DATE: 08/26/[address] [id number] IMAGING REPORT Signed PATIENT: JANNET BOBBY ACCOUNT: [id number] : 1955 LOCATION: ER AGE: 64 SEX: F EXAM STATUS: REG ER ORD. PHYSICIAN: AMPARO GONZALES APRN REASON: pain, fall PROCEDURE: WRIST 3V RIGHT RIGHT WRIST, 3 VIEWS Indication: Reason: pain, fall / Spl. Instructions: / History: Findings: There is no acute fracture or dislocation. No bony erosion is identified. There are mild degenerative changes. The mineralization is normal. There is no soft tissue swelling or radiopaque foreign body. IMPRESSION: No acute fracture or dislocation. Electronically signed by: Mir Zhang MD (08/26/2019 5:31 PM) [id number] DICTATED and SIGNED BY: MIR ZHANG MD DATE: 08/26/19 173 [address] [place] [address] IMAGING REPORT Signed PATIENT: JANNET BOBBY ACCOUNT: [id number] : 1955 LOCATION: ER AGE: 64 SEX: F EXAM STATUS: REG ER ORD. PHYSICIAN: AMPARO GONZALES APRN REASON: pain, fall PROCEDURE: PORTABLE CHEST 1V PORTABLE CHEST 1V INDICATION: Reason: pain, fall / Spl. Instructions: / History: . COMPARISON STUDY: 08/04/2019. FINDINGS: Lungs: Normal lung volume. Bilateral perihilar and basilar opacities. Pleura: Large right and small left pleural effusions. Heart and Mediastinum: Cardiomegaly. Tortuous thoracic aorta. IMPRESSION: 1. Bilateral perihilar and basilar opacities, likely edema or multifocal infection. 2. Large right and small left pleural effusions. Electronically signed by: Bruce Linares MD (08/26/2019 5:42 PM) [id number] DICTATED and SIGNED BY: BRUCE LINARES MD DATE: 08/26/19 1742 [facility] [address] [place] [address] IMAGING REPORT Signed PATIENT: JANNET BOBBY ACCOUNT: [id number] : 1955 LOCATION: ER AGE: 64 SEX: F EXAM STATUS: REG ER ORD. PHYSICIAN: AMPARO GONZALES APRN REASON: pain, fall PROCEDURE: CT HEAD AND CERVICAL SPINE WO CT HEAD AND CERVICAL SPINE WO Date: 08/26/2019 4:28 PM Clinical Indication: Reason: pain, fall / Spl. Instructions: / History: Comparison: 04/02/2019. Technique: 5 mm axial tomographic images were obtained of the head without contrast. These were viewed on brain and bone windows. Noncontrast CT of the cervical spine was performed. Sagittal and coronal reformats were performed and evaluated. One or more of the following dose reduction techniques were utilized: Automated exposure control (AEC), Adjustment of mA and/or kV according to patient size, Use of iterative reconstruction technique such as ASiR, CT scan done according to ALARA and image gently/image wisely HEAD FINDINGS: Mild generalized cerebral and cerebellar volume loss. Mild nonspecific periventricular hypoattenuation, most commonly seen with chronic small vessel ischemic disease. Right cerebellar encephalomalacia. Left basal ganglia lacunar infarct. No intra- or extra-axial mass or fluid collection. No acute hemorrhage. The ventricles are normal in size, shape, and morphology. The cortes-white matter junction is normal. The basilar cisterns are patent. The visualized paranasal sinuses are normal. The visualized portions of the orbits and globes are normal. The mastoid air cells are clear. No aggressive osseous lesion or fracture. CERVICAL SPINE FINDINGS: Straightening of the cervical lordosis. No acute fracture. No aggressive lytic or blastic osseous lesions. Mild multilevel degenerative disc space height loss. Multilevel mild spinal canal stenosis secondary to disc protrusions and marginal osteophytes. Multilevel mild neuroforaminal narrowing secondary to uncovertebral arthrosis. Multilevel mild facet arthrosis. The thyroid gland is atrophic or surgically absent. No cervical lymphadenopathy. Bilateral carotid atherosclerosis. The visualized aerodigestive tract is normal. Large right and mild left pleural effusions. Biapical ground glass opacities. IMPRESSION: 1. No acute intracranial process. 2. No acute cervical spine fracture. 3. Biapical groundglass opacities, which may represent edema or multifocal infection. 4. Large right and mild left pleural effusions. Electronically signed by: Bruce Linares MD (08/26/2019 5:36 PM) [id number] DICTATED and SIGNED BY: BRUCE LINARES MD DATE: 08/26/19 1736 Course & Med Decision Making: Course & Med Decision Making Pertinent Labs and Imaging studies reviewed. (See chart for details) Cervical, thoracic, lumbar focal bony spinal tenderness with palpation. No deformity or bruising or swelling or abrasions or lacerations seen. Patient denies hitting her head but it is unknown if this fall was seen or if the patient remembers. Patient does have dementia. She is alert and oriented to her self and place. Bilateral lower extremities are 3+ swelling. Patient seems very drowsy. She is in no respiratory distress. Speaks in full clear sentences but whispers. Patient has a history of CAD, CHF, COPD, dementia, GERD, hypertension, high cholesterol, TIA, UTI, pneumonia. I have spoken to Dr. Ca about this patient. Patient be admitted to Dr. Nichole. I consult nephrology. I ordered the hyperkalemia protocol. [] Remberto Disclaimer: Remberto Disclaimer: This electronic medical record was generated, in whole or in part, using a voice recognition dictation system. Departure Departure Impression: Primary Impression: Hyperkalemia Additional Impression: CHF exacerbation Qualified Codes: I50.9 - Heart failure, unspecified Disposition: ADMITTED INPATIENT Admitting Physician: DEB Condition: STABLE Referrals: MICHAEL VALENTIN (PCP) AMPARO GONZALES [employer] August 26, 2019 16:47
--- NOTE | 2019-08-26 17:34 | RAD ---
LUMBAR SPINE 2-3V DATE: 08/26/2019 4:28 PM INDICATION: Reason: pain, fall / Spl. Instructions: / History: COMPARISON: None. FINDINGS: Five non-rib bearing lumbar-type vertebral bodies are present. Bones/Alignment: No evidence of acute compression fracture. There is no listhesis. Joints: Mild to moderate degenerative disc disease. Lower lumbar facet arthropathy Miscellaneous: None. IMPRESSION: No evidence of acute compression fracture. Electronically signed by: Luis Alberto Linares MD (08/26/2019 5:30 PM) [id number]
--- NOTE | 2019-08-26 17:34 | RAD ---
RIGHT WRIST, 3 VIEWS Indication: Reason: pain, fall / Spl. Instructions: / History: Findings: There is no acute fracture or dislocation. No bony erosion is identified. There are mild degenerative changes. The mineralization is normal. There is no soft tissue swelling or radiopaque foreign body. IMPRESSION: No acute fracture or dislocation. Electronically signed by: Mir Zhang MD (08/26/2019 5:31 PM) NESAM
--- NOTE | 2019-08-26 17:39 | RAD ---
CT HEAD AND CERVICAL SPINE WO Date: 08/26/2019 4:28 PM Clinical Indication: Reason: pain, fall / Spl. Instructions: / History: Comparison: 04/02/2019. Technique: 5 mm axial tomographic images were obtained of the head without contrast. These were viewed on brain and bone windows. Noncontrast CT of the cervical spine was performed. Sagittal and coronal reformats were performed and evaluated. One or more of the following dose reduction techniques were utilized: Automated exposure control (AEC), Adjustment of mA and/or kV according to patient size, Use of iterative reconstruction technique such as ASiR, CT scan done according to ALARA and image gently/image wisely HEAD FINDINGS: Mild generalized cerebral and cerebellar volume loss. Mild nonspecific periventricular hypoattenuation, most commonly seen with chronic small vessel ischemic disease. Right cerebellar encephalomalacia. Left basal ganglia lacunar infarct. No intra- or extra-axial mass or fluid collection. No acute hemorrhage. The ventricles are normal in size, shape, and morphology. The cortes-white matter junction is normal. The basilar cisterns are patent. The visualized paranasal sinuses are normal. The visualized portions of the orbits and globes are normal. The mastoid air cells are clear. No aggressive osseous lesion or fracture. CERVICAL SPINE FINDINGS: Straightening of the cervical lordosis. No acute fracture. No aggressive lytic or blastic osseous lesions. Mild multilevel degenerative disc space height loss. Multilevel mild spinal canal stenosis secondary to disc protrusions and marginal osteophytes. Multilevel mild neuroforaminal narrowing secondary to uncovertebral arthrosis. Multilevel mild facet arthrosis. The thyroid gland is atrophic or surgically absent. No cervical lymphadenopathy. Bilateral carotid atherosclerosis. The visualized aerodigestive tract is normal. Large right and mild left pleural effusions. Biapical ground glass opacities. IMPRESSION: 1. No acute intracranial process. 2. No acute cervical spine fracture. 3. Biapical groundglass opacities, which may represent edema or multifocal infection. 4. Large right and mild left pleural effusions. Electronically signed by: Luis Alberto Linares MD (08/26/2019 5:36 PM) [id number]
[2019-08-26 17:40] LABS: ALBUMIN 3.3 g/dL (3.4-5.0); ALBUMIN/GLOBULIN RATIO 0.9 (1.0-1.7); CALCIUM 9.3 mg/dL (8.5-10.1); CREATININE 3.5 mg/dL (0.6-1.0); GFR 15.9; TOTAL BILIRUBIN 0.8 mg/dL (0.2-1.0)
[2019-08-26 17:42] LABS: POTASSIUM 6.3 mmol/L (3.5-5.1)
--- NOTE | 2019-08-26 17:43 | RAD ---
THORACIC SPINE 3V DATE: 08/26/2019 4:28 PM INDICATION: Reason: pain, fall / Spl. Instructions: / History: COMPARISON: Chest radiograph 02/13/2019. FINDINGS: The upper thoracic vertebrae are obscured on the lateral view by overlying soft tissue and osseous structures. Bones/Alignment: Mild height loss of several mid thoracic vertebrae appears similar to prior radiographs. Left convex thoracic curvature Joints: The disc space heights are normal. Miscellaneous: Lungs better evaluated on same-day chest radiograph report IMPRESSION: Mild height loss of several mid thoracic vertebrae appears similar to prior radiographs Electronically signed by: Luis Alberto Linares MD (08/26/2019 5:40 PM) [id number]
--- NOTE | 2019-08-26 17:45 | RAD ---
PORTABLE CHEST 1V INDICATION: Reason: pain, fall / Spl. Instructions: / History: . COMPARISON STUDY: 08/04/2019. FINDINGS: Lungs: Normal lung volume. Bilateral perihilar and basilar opacities. Pleura: Large right and small left pleural effusions. Heart and Mediastinum: Cardiomegaly. Tortuous thoracic aorta. IMPRESSION: 1. Bilateral perihilar and basilar opacities, likely edema or multifocal infection. 2. Large right and small left pleural effusions. Electronically signed by: Luis Alberto Linares MD (08/26/2019 5:42 PM) [id number]
[2019-08-26 17:54] LABS: BASE EXCESS COOX -8 mmol/L (-3-3); HCO3 COOX 17 mmol/L (21-28); METHEMOGLOBIN 0.5 % (0.0-1.9); OXYHEMOGLOBIN 95.9 %; PCO2 COOX 31 mmHg (35-46); PO2 COOX 106 mmHg (65-108); SAT O2 COOX 97 % (92-99)
[2019-08-26] MEDS ORDERED: SODIUM POLYSTYRENE SULFON/SORB 15 GM/60 ML ORAL.SUSP PO ONE (18:30)
[2019-08-26] MEDS ORDERED: INSULIN REGULAR 100 UNIT/ML 3ML VIAL. IV ONE (18:30)
[2019-08-26] MEDS ORDERED: CALCIUM GLUCONATE 1,000 MG/10 ML VIAL. IVP ONE (18:30)
[2019-08-26] MEDS ORDERED: DEXTROSE 50% 25 GM / 50ML DISP.SYRIN. IV ONE ×2 (18:30→22:30)
[2019-08-26] MEDS ORDERED: SODIUM BICARB ADULT 8.4% 50 MEQ/50 ML DISP.SYRIN. IV ONE (18:30)
[2019-08-26] MEDS ORDERED: FUROSEMIDE 40 MG/4 ML VIAL. IVP ONE (18:45)
[2019-08-26] MEDS ORDERED: fentaNYL PF VIAL 100 MCG/2 ML VIAL IV PRN (19:00)
[2019-08-26] MEDS ORDERED: fentaNYL PF VIAL 100 MCG/2 ML VIAL IVP ONE (19:00)
[2019-08-26] MEDS ORDERED: ONDANSETRON PF 4 MG/2 ML VIAL. IV PRN (19:00)
--- NOTE | 2019-08-26 20:34 | HP ---
ADMIT DATE: 08/26/2019 CHIEF COMPLAINT: Weakness, mental status change. Lower extremity swelling. HISTORY OF PRESENT ILLNESS: The patient is a pleasant 64-year-old female well known to my service, we admit her at least once or twice a month ago, she probably is failing to thrive. I have offered her to go to a shelter, but that is not happening. The family does not want that. Today, she has increased swelling. She is somewhat short of breath. She has some left-sided chest discomfort. She was recently here on 08/02/2019 for heart failure and hypoxia. Her COVID test at that time was negative. I discussed the case with ER physician. We are going to admit the patient. Consult Cardiology, Pulmonary and Nephrology. She has elevated potassium of 6.3 and a BUN of 91 and a creatinine of 3.5. PAST MEDICAL HISTORY: Chronic respiratory failure, CAD, CHF, COPD, dementia, GERD, hyperlipidemia, hypertension, pneumonia, TIA, history of being intubated, UTI, left knee surgery, arthritis, depression, anxiety, and previous tobacco abuse. ALLERGIES: PENICILLIN. FAMILY HISTORY: Coronary artery disease. SOCIAL HISTORY: She quit smoking, no drinking or drugs. MEDICATIONS: Reviewed, please refer to the MRAD. REVIEW OF SYSTEMS: GENERAL: No history of weight change, weakness or fevers. SKIN: No bruising, hair changes or rashes. EYES: No blurred, double or loss of vision. NOSE AND THROAT: No history of nosebleeds, hoarseness or sore throat. HEART: No history of palpitations, chest pain or shortness of breath on exertion. LUNGS: She complains of shortness of breath. GASTROINTESTINAL: Denies changes in appetite, nausea, vomiting, diarrhea or constipation. GENITOURINARY: No history of frequency, urgency, hesitancy or nocturia. NEUROLOGIC: Denies history of numbness, tingling, tremor or weakness. PSYCHIATRIC: No history of panic, anxiety or depression. ENDOCRINE: No history of heat or cold intolerance, polyuria or polydipsia. EXTREMITIES: Lower extremity swelling. Denies muscle weakness, joint pain, pain on walking or stiffness. PHYSICAL EXAMINATION: VITALS: Within normal limits and are stable. GENERAL: No apparent distress. Alert and oriented. HEENT: Normal cephalic atraumatic, external auditory canals are patent EYES: Extraocular muscles are intact, pupils are equally round and reactive to light and accommodation MUSCULOSKELETAL: Well developed, well nourished, good range of motion ENDOCRINE: No thyromegaly was palpated LYMPHATICS: No cervical chain or axillary nodes were noted HEMATOPOIETIC: No bruising NECK: Supple, no JVD, no thyromegaly was noted. LUNGS: She has decreased breath sounds with some crackles. HEART: RRR, S1, S2 present. Peripheral pulses intact, no obvious murmurs were noted. ABDOMEN: Soft, nontender. Positive bowel sounds no organomegaly, normal bowel sounds. EXTREMITIES: Without any cyanosis, clubbing, but she 2+ edema. Pedal pulses intact, Homans sign is negative. NEUROLOGIC: Normal speech, normal tone. A & O x3, moves all extremities, no obvious focal deficits. PSYCHIATRIC: Normal affect, normal mood. Stable. SKIN: No ulcerations or rashes, good skin turgor, no jaundice. VASCULAR: Good capillary refill, neurovascular bundle appears to be intact. ASSESSMENT: Lower extremity swelling, acute renal failure, hyperkalemia, respiratory failure in an elderly female who has known chronic obstructive pulmonary disease and multiple medical issues. PLAN: The patient is being admitted. We will do cardiac monitoring. Consult Cardiology, consult Pulmonary, and consult Nephrology. Home meds, DVT prophylaxis. Full code. Prognosis is extremely guarded. MARCO WILBURN DO DR: ELO/carlie JOB#: [id number] / [id number]
[2019-08-26 23:00] VITALS: BP 114/39
[2019-08-27] VITALS (14 sets, daily range): BP systolic 90–118; BP diastolic 35–71
--- NOTE | 2019-08-27 06:39 | EKG ---
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
[2019-08-27] MEDS ORDERED: NICOTINE 21MG PATCH. TD PRN (09:00)
--- NOTE | 2019-08-27 09:09 | PDOC ---
PROGRESS NOTES Chief Complaint Chief Complaint A/P: Hyperkalemia - given calcium gluconate, kayexelate, lasix Acute systolic and diastolic heart failure - given IV lasix initially, will continue Moderate aortic regurgitation Acute kidney injury - on CKD - likely vasomotor nephropathy vs cardiorenal syndrome Respiratory failure Chronic pain Previous tobacco abuse. Acute hypoxic respiratory failure, multifactorial - CHF, COPD, Acute chronic obstructive pulmonary disease exacerbation. Rule out COVID-19. Paroxysmal atrial flutter/fibrillation. Hypothyroidism acquired status post thyroidectomy. Anemia. CAD Dementia - likely vascular with prior TIAs GERD Hyperlipidemia Hypertension Macrocytosis - UTIs FEN - Cardiac diet PPX - eliquis FULL CODE Dispo - inpatient 2 midnights History of Present Illness History of Present Illness Ms Levin is a 64 yo F w/ PMHx COPD, severe cardiomyopathy, CHF EF 40-45%, coronary artery disease, HLD, GERD, paroxysmal afib, ex-smoker who was brought to ED from home where she lives with her daughter by EMS in respiratory distress with swelling and chest discomfort, She was discharged earlier this year to SNF and was on the ventilator earlier this year. Last hospital stay she was discharged home with home health. recently here on 08/02/2019 for heart failure and hypoxia. Her COVID test at that time was negative She has not felt well for the past few days. She does have cough with some sputum production. She has elevated potassium of 6.3 and a BUN of 91 and a creatinine of 3.5. Consults: Cardiology, Pulmonary and Nephrology. This morning she is resting relatively comfortably. Verbalizing much with me denies that her chest discomfort and shortness of breath are slightly improved. On further review, labs returned with glucose of 15. D50 given x1 ampule with increase to 63, but now persistently low, will change to D10 infusion Have contacted her daughter Hallie, and she is made it clear that her mother is requested not to be back on a ventilator. [facility] has asked that we give her "1 more time" if she has cardiac or respiratory arrest. She notes the reason she revoked hospice as she was not comfortable with her mother receiving morphine for pain and for shortness of breath and felt like it was slowly killing her. Vitals Vitals Vital Signs Date Time Temp Pulse Resp B/P (MAP) Pulse Ox O2 Delivery O2 Flow Rate FiO2 08/27/19 07:46 97.4 46 14 98/35 (56) 94 Nasal Cannula 2.0 97.4 Physical Exam General: Cooperative Heart: Regular rate, Other (S4) Lungs: Wheezing, Crackles, Other Abdomen: Normal bowel sounds, Soft Extremities: No clubbing, No cyanosis Skin: Other (Xerosis, dry skin) Labs LABS Laboratory Tests Test 08/26/19 16:10 08/26/19 16:28 08/26/19 17:15 08/26/19 22:05 White Blood Count 4.8 x10^3/uL (4.0-11.0) Red Blood Count 3.60 x10^6/uL (3.50-5.40) Hemoglobin 11.1 g/dL (12.0-15.5) Hematocrit 34.8 % (36.0-47.0) Mean Corpuscular Volume 97 fL (79-100) Mean Corpuscular Hemoglobin 31 pg (25-35) Mean Corpuscular Hemoglobin Concent 32 g/dL (31-37) Red Cell Distribution Width 19.1 % (11.5-14.5) Platelet Count 283 x10^3/uL (140-400) Neutrophils (%) (Auto) 65 % (31-73) Lymphocytes (%) (Auto) 30 % (24-48) Monocytes (%) (Auto) 5 % (0-9) Eosinophils (%) (Auto) 0 % (0-3) Basophils (%) (Auto) 0 % (0-3) Neutrophils # (Auto) 3.2 x10^3/uL (1.8-7.7) Lymphocytes # (Auto) 1.4 x10^3/uL (1.0-4.8) Monocytes # (Auto) 0.2 x10^3/uL (0.0-1.1) Eosinophils # (Auto) 0.0 x10^3/uL (0.0-0.7) Basophils # (Auto) 0.0 x10^3/uL (0.0-0.2) Prothrombin Time 35.7 SEC (11.7-14.0) Prothromb Time International Ratio 3.5 (0.8-1.1) O2 Saturation 97 % (92-99) Arterial Blood pH 7.34 (7.35-7.45) Arterial Blood pCO2 at Patient Temp 31 mmHg (35-46) Arterial Blood pO2 at Patient Temp 106 mmHg (65-108) Arterial Blood HCO3 17 mmol/L (21-28) Arterial Blood Base Excess -8 mmol/L (-3-3) Oxyhemoglobin 95.9 % Methemoglobin 0.5 % (0.0-1.9) Carbon Monoxide, Quantitative 0.3 % (0.0-1.9) FiO2 30% Sodium Level 131 mmol/L (136-145) Potassium Level 6.3 mmol/L (3.5-5.1) Chloride Level 92 mmol/L (98-107) Carbon Dioxide Level 25 mmol/L (21-32) Anion Gap 14 (6-14) Blood Urea Nitrogen 91 mg/dL (7-20) Creatinine 3.5 mg/dL (0.6-1.0) Estimated GFR (Cockcroft-Gault) 15.9 BUN/Creatinine Ratio 26 (6-20) Glucose Level 60 mg/dL (70-99) Calcium Level 9.3 mg/dL (8.5-10.1) Total Bilirubin 0.8 mg/dL (0.2-1.0) Aspartate Amino Transf (AST/SGOT) 62 U/L (15-37) Alanine Aminotransferase (ALT/SGPT) 73 U/L (14-59) Alkaline Phosphatase 130 U/L (46-116) Troponin I Quantitative 0.030 ng/mL (0.000-0.055) NQ-Gue-C-Type Natriuretic Peptide 13967 pg/mL (0-124) Total Protein 7.0 g/dL (6.4-8.2) Albumin 3.3 g/dL (3.4-5.0) Albumin/Globulin Ratio 0.9 (1.0-1.7) Glucose (Fingerstick) 54 mg/dL (70-99) Test 08/26/19 23:00 Glucose (Fingerstick) 186 mg/dL (70-99) Assessment and Plan Assessmemt and Plan Problems Medical Problems: (1) CHF exacerbation Status: Acute (2) Hyperkalemia Status: Acute Comment Review of Relevant I have reviewed the following items suad (where applicable) has been applied. Labs Laboratory Tests Test 08/26/19 16:10 08/26/19 16:28 08/26/19 17:15 08/26/19 22:05 White Blood Count 4.8 x10^3/uL (4.0-11.0) Red Blood Count 3.60 x10^6/uL (3.50-5.40) Hemoglobin 11.1 g/dL (12.0-15.5) Hematocrit 34.8 % (36.0-47.0) Mean Corpuscular Volume 97 fL (79-100) Mean Corpuscular Hemoglobin 31 pg (25-35) Mean Corpuscular Hemoglobin Concent 32 g/dL (31-37) Red Cell Distribution Width 19.1 % (11.5-14.5) Platelet Count 283 x10^3/uL (140-400) Neutrophils (%) (Auto) 65 % (31-73) Lymphocytes (%) (Auto) 30 % (24-48) Monocytes (%) (Auto) 5 % (0-9) Eosinophils (%) (Auto) 0 % (0-3) Basophils (%) (Auto) 0 % (0-3) Neutrophils # (Auto) 3.2 x10^3/uL (1.8-7.7) Lymphocytes # (Auto) 1.4 x10^3/uL (1.0-4.8) Monocytes # (Auto) 0.2 x10^3/uL (0.0-1.1) Eosinophils # (Auto) 0.0 x10^3/uL (0.0-0.7) Basophils # (Auto) 0.0 x10^3/uL (0.0-0.2) Prothrombin Time 35.7 SEC (11.7-14.0) Prothromb Time International Ratio 3.5 (0.8-1.1) O2 Saturation 97 % (92-99) Arterial Blood pH 7.34 (7.35-7.45) Arterial Blood pCO2 at Patient Temp 31 mmHg (35-46) Arterial Blood pO2 at Patient Temp 106 mmHg (65-108) Arterial Blood HCO3 17 mmol/L (21-28) Arterial Blood Base Excess -8 mmol/L (-3-3) Oxyhemoglobin 95.9 % Methemoglobin 0.5 % (0.0-1.9) Carbon Monoxide, Quantitative 0.3 % (0.0-1.9) FiO2 30% Sodium Level 131 mmol/L (136-145) Potassium Level 6.3 mmol/L (3.5-5.1) Chloride Level 92 mmol/L (98-107) Carbon Dioxide Level 25 mmol/L (21-32) Anion Gap 14 (6-14) Blood Urea Nitrogen 91 mg/dL (7-20) Creatinine 3.5 mg/dL (0.6-1.0) Estimated GFR (Cockcroft-Gault) 15.9 BUN/Creatinine Ratio 26 (6-20) Glucose Level 60 mg/dL (70-99) Calcium Level 9.3 mg/dL (8.5-10.1) Total Bilirubin 0.8 mg/dL (0.2-1.0) Aspartate Amino Transf (AST/SGOT) 62 U/L (15-37) Alanine Aminotransferase (ALT/SGPT) 73 U/L (14-59) Alkaline Phosphatase 130 U/L (46-116) Troponin I Quantitative 0.030 ng/mL (0.000-0.055) YO-Grp-Q-Type Natriuretic Peptide 30846 pg/mL (0-124) Total Protein 7.0 g/dL (6.4-8.2) Albumin 3.3 g/dL (3.4-5.0) Albumin/Globulin Ratio 0.9 (1.0-1.7) Glucose (Fingerstick) 54 mg/dL (70-99) Test 08/26/19 23:00 Glucose (Fingerstick) 186 mg/dL (70-99) Laboratory Tests Test 08/26/19 16:10 08/26/19 16:28 08/26/19 17:15 08/26/19 22:05 White Blood Count 4.8 x10^3/uL (4.0-11.0) Red Blood Count 3.60 x10^6/uL (3.50-5.40) Hemoglobin 11.1 g/dL (12.0-15.5) Hematocrit 34.8 % (36.0-47.0) Mean Corpuscular Volume 97 fL (79-100) Mean Corpuscular Hemoglobin 31 pg (25-35) Mean Corpuscular Hemoglobin Concent 32 g/dL (31-37) Red Cell Distribution Width 19.1 % (11.5-14.5) Platelet Count 283 x10^3/uL (140-400) Neutrophils (%) (Auto) 65 % (31-73) Lymphocytes (%) (Auto) 30 % (24-48) Monocytes (%) (Auto) 5 % (0-9) Eosinophils (%) (Auto) 0 % (0-3) Basophils (%) (Auto) 0 % (0-3) Neutrophils # (Auto) 3.2 x10^3/uL (1.8-7.7) Lymphocytes # (Auto) 1.4 x10^3/uL (1.0-4.8) Monocytes # (Auto) 0.2 x10^3/uL (0.0-1.1) Eosinophils # (Auto) 0.0 x10^3/uL (0.0-0.7) Basophils # (Auto) 0.0 x10^3/uL (0.0-0.2) Prothrombin Time 35.7 SEC (11.7-14.0) Prothromb Time International Ratio 3.5 (0.8-1.1) O2 Saturation 97 % (92-99) Arterial Blood pH 7.34 (7.35-7.45) Arterial Blood pCO2 at Patient Temp 31 mmHg (35-46) Arterial Blood pO2 at Patient Temp 106 mmHg (65-108) Arterial Blood HCO3 17 mmol/L (21-28) Arterial Blood Base Excess -8 mmol/L (-3-3) Oxyhemoglobin 95.9 % Methemoglobin 0.5 % (0.0-1.9) Carbon Monoxide, Quantitative 0.3 % (0.0-1.9) FiO2 30% Sodium Level 131 mmol/L (136-145) Potassium Level 6.3 mmol/L (3.5-5.1) Chloride Level 92 mmol/L (98-107) Carbon Dioxide Level 25 mmol/L (21-32) Anion Gap 14 (6-14) Blood Urea Nitrogen 91 mg/dL (7-20) Creatinine 3.5 mg/dL (0.6-1.0) Estimated GFR (Cockcroft-Gault) 15.9 BUN/Creatinine Ratio 26 (6-20) Glucose Level 60 mg/dL (70-99) Calcium Level 9.3 mg/dL (8.5-10.1) Total Bilirubin 0.8 mg/dL (0.2-1.0) Aspartate Amino Transf (AST/SGOT) 62 U/L (15-37) Alanine Aminotransferase (ALT/SGPT) 73 U/L (14-59) Alkaline Phosphatase 130 U/L (46-116) Troponin I Quantitative 0.030 ng/mL (0.000-0.055) QW-Kba-D-Type Natriuretic Peptide 40405 pg/mL (0-124) Total Protein 7.0 g/dL (6.4-8.2) Albumin 3.3 g/dL (3.4-5.0) Albumin/Globulin Ratio 0.9 (1.0-1.7) Glucose (Fingerstick) 54 mg/dL (70-99) Test 08/26/19 23:00 Glucose (Fingerstick) 186 mg/dL (70-99) Medications Current Medications Calcium Gluconate (Calcium Gluconate) 1,000 mg 1X ONCE IVP Last administered on 08/26/19 18:58; Start 08/26/19 at 18:30; Stop 08/26/19 at 18:32; Status DC Sodium Bicarbonate (Sodium Bicarb Adult 8.4% Syr) 50 meq 1X ONCE IV Last administered on 08/26/19 19:08; Start 08/26/19 at 18:30; Stop 08/26/19 at 18:32; Status DC Dextrose (Dextrose 50%-Water Syringe) 25 gm 1X ONCE IV Last administered on 08/26/19at 19:01; Start 08/26/19 at 18:30; Stop 08/26/19 at 18:32; Status DC Insulin Human Regular (HumuLIN R VIAL) 10 unit 1X ONCE IV Last administered on 08/26/19 19:07; Start 08/26/19 at 18:30; Stop 08/26/19 at 18:32; Status DC Sodium Polystyrene Sulfonate (Kayexalate) 30 gm 1X ONCE PO Last administered on 08/26/19at 22:02; Start 08/26/19 at 18:30; Stop 08/26/19 at 18:32; Status DC Furosemide (Lasix) 80 mg 1X ONCE IVP Last administered on 08/26/19at 19:10; Start 08/26/19 at 18:45; Stop 08/26/19 at 18:48; Status DC Fentanyl Citrate (Fentanyl 2ml Vial) 50 mcg 1X ONCE IVP Last administered on 5/28/20at 18:57; Start 08/26/19 at 19:00; Stop 08/26/19 at 19:01; Status DC Ondansetron HCl (Zofran) 4 mg PRN Q8HRS PRN IV NAUSEA/VOMITING; Start 08/26/19 at 19:00; Stop 08/27/19 at 18:59 Fentanyl Citrate (Fentanyl 2ml Vial) 50 mcg PRN Q1HR PRN IV PAIN; Start 08/26/19 at 19:00; Stop 08/27/19 at 18:59 Dextrose (Dextrose 50%-Water Syringe) 25 gm 1X ONCE IV ; Start 08/26/19 at 22:30; Stop 08/26/19 at 22:31; Status DC Active Scripts Active Lasix (Furosemide) 40 Mg Tablet 1 Tab PO DAILY 30 Days Culturelle (Lactobacillus Rhamnosus Gg) 1 Each Cap.sprink 1 Cap PO BID 30 Days Budesonide 0.5 Mg/2 Ml Ampul.neb 0.5 Mg NEB RTBID 30 Days Amiodarone Hcl 200 Mg Tablet 200 Mg PO DAILY 30 Days Proair Hfa (Albuterol Sulfate) 8.5 Gm Hfa.aer.ad 2.5 Mg NEB PRN Q4HRS PRN 30 Days Duoneb 0.5-3(2.5) Mg/3 Ml (Albuterol/Ipratropium) 3 Ml Ampul.neb 3 Ml NEB RTQID 30 Days Eliquis (Apixaban) 2.5 Mg Tablet 2.5 Mg PO BID 60 Days Metoprolol Tartrate 25 Mg Tablet 25 Mg PO BID [Nicotine 21MG] 1 PATCH Patch 1 Patch TD PRN DAILY PRN MDD 1 Tessalon Perle (Benzonatate) 100 Mg Capsule 1 Cap PO TID Flonase Allergy Relief (Fluticasone Propionate) 9.9 Ml Humble.susp 2 Sprays NS DAILY Reported Levothyroxine Sodium 100 Mcg Tablet 1 Tab PO DAILY Klor-Con M20 (Potassium Chloride) 20 Meq Tab.er.prt 20 Meq PO BID NEW PRESCRIPTIONS Vitals/I & O Vital Sign - Last 24 Hours 08/26/19 08/26/19 08/26/19 08/26/19 15:47 17:55 18:32 18:53 Temp 98.5 98.5 Pulse 49 48 46 Resp 16 B/P (MAP) 104/53 (70) 106/52 (70) 106/53 (70) Pulse Ox 96 95 97 O2 Delivery Room Air Room Air Room Air O2 Flow Rate 2.5 08/26/19 08/26/19 08/26/19 08/26/19 19:13 19:33 19:53 20:13 Pulse 49 50 48 48 B/P (MAP) 134/60 (84) 137/63 (87) 130/59 (82) 125/57 (79) Pulse Ox 97 97 97 97 O2 Delivery Room Air Room Air Room Air Room Air 08/26/19 08/26/19 08/26/19 08/26/19 20:33 22:01 23:00 23:45 Pulse 48 49 92 Resp 20 B/P (MAP) 124/57 (79) 100/50 (67) 114/39 (64) Pulse Ox 97 97 97 O2 Delivery Room Air Room Air Nasal Cannula Nasal Cannula O2 Flow Rate 2.0 3.0 08/27/19 08/27/19 03:00 07:46 Temp 97.4 97.4 Pulse 75 46 Resp 18 14 B/P (MAP) 90/38 (55) 98/35 (56) Pulse Ox 97 94 O2 Delivery Nasal Cannula Nasal Cannula O2 Flow Rate 2.0 2.0 Intake and Output 08/26/19 08/26/19 08/27/19 15:00 23:00 07:00 Intake Total 50 ml Balance 50 ml NAKITA RODRIGUES MD August 27, 2019 09:09
[2019-08-27 10:06] LABS: CALCIUM 9.4 mg/dL (8.5-10.1); CREATININE 3.7 mg/dL (0.6-1.0); GFR 14.9; MAGNESIUM 2.6 mg/dL (1.8-2.4)
[2019-08-27] MEDS ORDERED: ALBUTEROL SULFATE 2.5 MG/3 ML NEBU. NEB PRN (10:15)
[2019-08-27] MEDS ORDERED: ONDANSETRON PF 4 MG/2 ML VIAL. IV PRN (10:15)
[2019-08-27] MEDS ORDERED: DEXTROSE 50% 25 GM / 50ML DISP.SYRIN. IV ONE ×2 (10:18→10:25)
[2019-08-27] MEDS: LEVOTHYROXINE 100 MCG TABLET PO SCH (10:30)
[2019-08-27] MEDS ORDERED: IV DEXTROSE 10% 500 ML IV ONE (10:45)
[2019-08-27] MEDS ORDERED: IV DEXTROSE 10% 500 ML IV SCH (10:45)
[2019-08-27] MEDS: IPRATRPIUM/ALBUTEROL 0.5/2.5MG 3 ML NEBU. NEB SCH ×3 (10:52→19:18)
[2019-08-27] MEDS: BENZONATATE 100 MG CAPSULE. PO SCH ×2 (11:00→14:00)
[2019-08-27] MEDS: METOPROLOL TART IMMED RELEASE 25 MG TABLET. PO SCH ×2 (11:00→21:00)
[2019-08-27] MEDS ORDERED: APIXABAN 2.5 MG TABLET. PO SCH (11:00)
[2019-08-27] MEDS ORDERED: AMIODARONE HCL 200 MG TABLET. PO SCH (11:00)
--- NOTE | 2019-08-27 11:00 | NUR ---
Critical blood sugar of [address] Tapia on the floor and notified. Two amps of D50 given to patient. BS went up to 41, then 30, and back to 15. D10 fluids also started but blood sugar is still low. Dr. Tapia notified and ordered to increase fluids to 100 mls/hr, transfer to ICU, and check BS q15min for 1 hr and then q1h for six hours. Will continue to monitor
[2019-08-27] MEDS ORDERED: IV DEXTROSE 10% 1,000 ML IV SCH (11:15)
--- NOTE | 2019-08-27 11:28 | PDOC2 ---
CONSULT Date of Consult Date of Consult DATE: 08/27/19 TIME: 11:18 Reason for Consult Reason for Consult: NEGRITO AND HIGH K Referring Physician Referring Physician: AKILA Identification/Chief Complaint Chief Complaint CONFUSION AND WEAKNESS Source Source: Chart review History of Present Illness Reason for Visit: THIS IS A 64 YR OLD AA FEMALE PT WITH CONFUSION AND WEAKNESS. SHE HAS SEVERE UNDERLYING DEMENTIA WELL. SOB ON ADMIT WITH AECOPD AND MILD PLEURAL EFFUSION AND CHF. HAS CKD STAGE 3 WITH CR OF 1.5 BUT NOTED TO HAVE NEGRITO WITH CR OF 3.5 AND K OF 6.3. HAS LE EDEMA. HAS BEEN FAILURE TO THRIVE AT HER NH WELL PER REPORT. CARDIOLOGY EVALUATION PENDING AT THIS TIME. SOME WHAT HYPOTENSIVE AND ON BETA BLOCKERS FOR HER P AFIB. IS NOW ALSO ON AMIODARONE. NO OTHER HX NOTED Past Medical History Cardiovascular: AFIB, CHF, HTN, Hyperlipidemia Pulmonary: COPD, Pneumonia, Other CENTRAL NERVOUS SYSTEM: CVA GI: GERD, GI bleed Heme/Onc: Anemia NOS Hepatobiliary: No pertinent hx Psych: Anxiety Musculoskeletal: Other Rheumatologic: No pertinent hx Infectious disease: Other Renal/: Chronic renal insuff, UTI Endocrine: Hyperthyroidism, Hypothyroidism Past Surgical History Past Surgical History: Other Family History Family History: No Significant, Heart Disease Social History No ALCOHOL: none Drugs: None Lives: Correction Current Problem List Problem List Problems Medical Problems: (1) CHF exacerbation Status: Acute (2) Hyperkalemia Status: Acute Current Medications Current Medications Current Medications Calcium Gluconate (Calcium Gluconate) 1,000 mg 1X ONCE IVP Last administered on 08/26/19at 18:58; Start 08/26/19 at 18:30; Stop 08/26/19 at 18:32; Status DC Sodium Bicarbonate (Sodium Bicarb Adult 8.4% Syr) 50 meq 1X ONCE IV Last administered on 08/26/19at 19:08; Start 08/26/19 at 18:30; Stop 08/26/19 at 18:32; Status DC Dextrose (Dextrose 50%-Water Syringe) 25 gm 1X ONCE IV Last administered on 08/26/19at 19:01; Start 08/26/19 at 18:30; Stop 08/26/19 at 18:32; Status DC Insulin Human Regular (HumuLIN R VIAL) 10 unit 1X ONCE IV Last administered on 08/26/19at 19:07; Start 08/26/19 at 18:30; Stop 08/26/19 at 18:32; Status DC Sodium Polystyrene Sulfonate (Kayexalate) 30 gm 1X ONCE PO Last administered on 08/26/19at 22:02; Start 08/26/19 at 18:30; Stop 08/26/19 at 18:32; Status DC Furosemide (Lasix) 80 mg 1X ONCE IVP Last administered on 08/26/19at 19:10; Start 08/26/19 at 18:45; Stop 08/26/19 at 18:48; Status DC Fentanyl Citrate (Fentanyl 2ml Vial) 50 mcg 1X ONCE IVP Last administered on 08/26/19at 18:57; Start 08/26/19 at 19:00; Stop 08/26/19 at 19:01; Status DC Ondansetron HCl (Zofran) 4 mg PRN Q8HRS PRN IV NAUSEA/VOMITING; Start 08/26/19 at 19:00; Stop 08/27/19 at 10:15; Status DC Fentanyl Citrate (Fentanyl 2ml Vial) 50 mcg PRN Q1HR PRN IV PAIN; Start 08/26/19 at 19:00; Stop 08/27/19 at 18:59 Dextrose (Dextrose 50%-Water Syringe) 25 gm 1X ONCE IV ; Start 08/26/19 at 22:30; Stop 08/26/19 at 22:31; Status DC Ondansetron HCl (Zofran) 4 mg PRN Q4HRS PRN IV NAUSEA/VOMITING; Start 08/27/19 at 10:15 Albuterol Sulfate (Ventolin Neb Soln) 2.5 mg PRN Q4HRS PRN NEB SHORTNESS OF BREATH; Start 08/27/19 at 10:15 Amiodarone HCl (Cordarone) 200 mg DAILY PO ; Start 08/27/19 at 11:00 Apixaban (Eliquis) 2.5 mg BID PO ; Start 08/27/19 at 11:00 Benzonatate (Tessalon Perle) 100 mg TID PO ; Start 08/27/19 at 11:00 Budesonide (Pulmicort) 0.5 mg RTBID NEB ; Start 08/27/19 at 20:00 Albuterol/ Ipratropium (Duoneb) 3 ml RTQID NEB Last administered on 08/27/19at 10:52; Start 08/27/19 at 12:00 Lactobacillus Rhamnosus (Culturelle) 1 cap BID PO ; Start 08/27/19 at 21:00 Levothyroxine Sodium (Synthroid) 100 mcg DAILY06 PO ; Start 08/27/19 at 10:30 Metoprolol Tartrate (Lopressor) 25 mg BID PO ; Start 08/27/19 at 11:00 Nicotine (Nicoderm Cq 21mg) 1 patch PRN DAILY PRN TD SMOKING CESSATION; Start 08/27/19 at 09:00 Furosemide (Lasix) 40 mg BID92 IVP ; Start 08/27/19 at 14:00; Stop 08/28/19 at 14:01 Dextrose (Dextrose 50%-Water Syringe) 25 gm STK-MED ONCE IV ; Start 08/27/19 at 10:18; Stop 08/27/19 at 10:18; Status DC Dextrose (Dextrose 50%-Water Syringe) 25 gm STK-MED ONCE IV ; Start 08/27/19 at 10:25; Stop 08/27/19 at 10:26; Status DC Dextrose (Dextrose 50%-Water Syringe) 12.5 gm PRN Q15MIN PRN IV SEE COMMENTS; Start 08/27/19 at 10:45 Dextrose 500 ml @ 50 mls/hr 1X ONCE IV ; Start 08/27/19 at 10:45; Stop 08/27/19 at 11:03; Status DC Dextrose 500 ml @ 75 mls/hr Q6H40M IV ; Start 08/27/19 at 10:45; Stop 08/27/19 at 11:03; Status DC Dextrose 1,000 ml @ 100 mls/hr Q10H IV ; Start 08/27/19 at 11:15 Active Scripts Active Lasix (Furosemide) 40 Mg Tablet 1 Tab PO DAILY 30 Days Culturelle (Lactobacillus Rhamnosus Gg) 1 Each Cap.sprink 1 Cap PO BID 30 Days Budesonide 0.5 Mg/2 Ml Ampul.neb 0.5 Mg NEB RTBID 30 Days Amiodarone Hcl 200 Mg Tablet 200 Mg PO DAILY 30 Days Proair Hfa (Albuterol Sulfate) 8.5 Gm Hfa.aer.ad 2.5 Mg NEB PRN Q4HRS PRN 30 Days Duoneb 0.5-3(2.5) Mg/3 Ml (Albuterol/Ipratropium) 3 Ml Ampul.neb 3 Ml NEB RTQID 30 Days Eliquis (Apixaban) 2.5 Mg Tablet 2.5 Mg PO BID 60 Days Metoprolol Tartrate 25 Mg Tablet 25 Mg PO BID [Nicotine 21MG] 1 PATCH Patch 1 Patch TD PRN DAILY PRN MDD 1 Tessalon Perle (Benzonatate) 100 Mg Capsule 1 Cap PO TID Flonase Allergy Relief (Fluticasone Propionate) 9.9 Ml [place].susp 2 Sprays NS DAILY Reported Levothyroxine Sodium 100 Mcg Tablet 1 Tab PO DAILY Klor-Con M20 (Potassium Chloride) 20 Meq Tab.er.prt 20 Meq PO BID NEW PRESCRIPTIONS Allergies Allergies: Coded Allergies: Penicillins (Verified Allergy, Severe, anaphylaxis, 06/10/19) Tolerates merrem ROS Review of System UNABLE TO OBTAIN FROM PT Physical Exam General: Cooperative, mild distress HEENT: Atraumatic, PERRLA, EOMI, Mucous membr. moist/pink Lungs: Other (FEW WHEEZES AND BASILAR RALES) Heart: Other (BRADYCARDIA) Abdomen: Normal bowel sounds, Soft, No tenderness Extremities: Other (3+ EDEMA) Skin: No rashes Neuro: Other (CONFUSED) Psych/Mental Status: Other (ANXIOUS AND CONFUSED) MUSCULOSKELETAL: Other (3+ EDEMA) Vitals VITALS Vital Signs Date Time Temp Pulse Resp B/P (MAP) Pulse Ox O2 Delivery O2 Flow Rate FiO2 08/27/19 10:53 95 Nasal Cannula 3.0 08/27/19 07:46 97.4 46 14 98/35 (56) 97.4 Labs Labs Laboratory Tests Test 08/26/19 16:10 08/26/19 16:28 08/26/19 17:15 08/26/19 22:05 White Blood Count 4.8 x10^3/uL (4.0-11.0) Red Blood Count 3.60 x10^6/uL (3.50-5.40) Hemoglobin 11.1 g/dL (12.0-15.5) Hematocrit 34.8 % (36.0-47.0) Mean Corpuscular Volume 97 fL (79-100) Mean Corpuscular Hemoglobin 31 pg (25-35) Mean Corpuscular Hemoglobin Concent 32 g/dL (31-37) Red Cell Distribution Width 19.1 % (11.5-14.5) Platelet Count 283 x10^3/uL (140-400) Neutrophils (%) (Auto) 65 % (31-73) Lymphocytes (%) (Auto) 30 % (24-48) Monocytes (%) (Auto) 5 % (0-9) Eosinophils (%) (Auto) 0 % (0-3) Basophils (%) (Auto) 0 % (0-3) Neutrophils # (Auto) 3.2 x10^3/uL (1.8-7.7) Lymphocytes # (Auto) 1.4 x10^3/uL (1.0-4.8) Monocytes # (Auto) 0.2 x10^3/uL (0.0-1.1) Eosinophils # (Auto) 0.0 x10^3/uL (0.0-0.7) Basophils # (Auto) 0.0 x10^3/uL (0.0-0.2) Prothrombin Time 35.7 SEC (11.7-14.0) Prothromb Time International Ratio 3.5 (0.8-1.1) O2 Saturation 97 % (92-99) Arterial Blood pH 7.34 (7.35-7.45) Arterial Blood pCO2 at Patient Temp 31 mmHg (35-46) Arterial Blood pO2 at Patient Temp 106 mmHg (65-108) Arterial Blood HCO3 17 mmol/L (21-28) Arterial Blood Base Excess -8 mmol/L (-3-3) Oxyhemoglobin 95.9 % Methemoglobin 0.5 % (0.0-1.9) Carbon Monoxide, Quantitative 0.3 % (0.0-1.9) FiO2 30% Sodium Level 131 mmol/L (136-145) Potassium Level 6.3 mmol/L (3.5-5.1) Chloride Level 92 mmol/L (98-107) Carbon Dioxide Level 25 mmol/L (21-32) Anion Gap 14 (6-14) Blood Urea Nitrogen 91 mg/dL (7-20) Creatinine 3.5 mg/dL (0.6-1.0) Estimated GFR (Cockcroft-Gault) 15.9 BUN/Creatinine Ratio 26 (6-20) Glucose Level 60 mg/dL (70-99) Calcium Level 9.3 mg/dL (8.5-10.1) Total Bilirubin 0.8 mg/dL (0.2-1.0) Aspartate Amino Transf (AST/SGOT) 62 U/L (15-37) Alanine Aminotransferase (ALT/SGPT) 73 U/L (14-59) Alkaline Phosphatase 130 U/L (46-116) Troponin I Quantitative 0.030 ng/mL (0.000-0.055) WM-Oev-H-Type Natriuretic Peptide 04615 pg/mL (0-124) Total Protein 7.0 g/dL (6.4-8.2) Albumin 3.3 g/dL (3.4-5.0) Albumin/Globulin Ratio 0.9 (1.0-1.7) Glucose (Fingerstick) 54 mg/dL (70-99) Test 08/26/19 23:00 08/27/19 09:20 08/27/19 10:24 08/27/19 10:33 Glucose (Fingerstick) 186 mg/dL (70-99) 63 mg/dL (70-99) 41 mg/dL (70-99) Sodium Level 132 mmol/L (136-145) Potassium Level 5.0 mmol/L (3.5-5.1) Chloride Level 92 mmol/L (98-107) Carbon Dioxide Level 25 mmol/L (21-32) Anion Gap 15 (6-14) Blood Urea Nitrogen 94 mg/dL (7-20) Creatinine 3.7 mg/dL (0.6-1.0) Estimated GFR (Cockcroft-Gault) 14.9 Glucose Level 15 mg/dL (70-99) Calcium Level 9.4 mg/dL (8.5-10.1) Magnesium Level 2.6 mg/dL (1.8-2.4) Test 08/27/19 10:34 08/27/19 10:56 Glucose (Fingerstick) 30 mg/dL (70-99) 15 mg/dL (70-99) Laboratory Tests Test 08/26/19 16:10 08/26/19 16:28 08/26/19 17:15 08/26/19 22:05 White Blood Count 4.8 x10^3/uL (4.0-11.0) Red Blood Count 3.60 x10^6/uL (3.50-5.40) Hemoglobin 11.1 g/dL (12.0-15.5) Hematocrit 34.8 % (36.0-47.0) Mean Corpuscular Volume 97 fL (79-100) Mean Corpuscular Hemoglobin 31 pg (25-35) Mean Corpuscular Hemoglobin Concent 32 g/dL (31-37) Red Cell Distribution Width 19.1 % (11.5-14.5) Platelet Count 283 x10^3/uL (140-400) Neutrophils (%) (Auto) 65 % (31-73) Lymphocytes (%) (Auto) 30 % (24-48) Monocytes (%) (Auto) 5 % (0-9) Eosinophils (%) (Auto) 0 % (0-3) Basophils (%) (Auto) 0 % (0-3) Neutrophils # (Auto) 3.2 x10^3/uL (1.8-7.7) Lymphocytes # (Auto) 1.4 x10^3/uL (1.0-4.8) Monocytes # (Auto) 0.2 x10^3/uL (0.0-1.1) Eosinophils # (Auto) 0.0 x10^3/uL (0.0-0.7) Basophils # (Auto) 0.0 x10^3/uL (0.0-0.2) Prothrombin Time 35.7 SEC (11.7-14.0) Prothromb Time International Ratio 3.5 (0.8-1.1) O2 Saturation 97 % (92-99) Arterial Blood pH 7.34 (7.35-7.45) Arterial Blood pCO2 at Patient Temp 31 mmHg (35-46) Arterial Blood pO2 at Patient Temp 106 mmHg (65-108) Arterial Blood HCO3 17 mmol/L (21-28) Arterial Blood Base Excess -8 mmol/L (-3-3) Oxyhemoglobin 95.9 % Methemoglobin 0.5 % (0.0-1.9) Carbon Monoxide, Quantitative 0.3 % (0.0-1.9) FiO2 30% Sodium Level 131 mmol/L (136-145) Potassium Level 6.3 mmol/L (3.5-5.1) Chloride Level 92 mmol/L (98-107) Carbon Dioxide Level 25 mmol/L (21-32) Anion Gap 14 (6-14) Blood Urea Nitrogen 91 mg/dL (7-20) Creatinine 3.5 mg/dL (0.6-1.0) Estimated GFR (Cockcroft-Gault) 15.9 BUN/Creatinine Ratio 26 (6-20) Glucose Level 60 mg/dL (70-99) Calcium Level 9.3 mg/dL (8.5-10.1) Total Bilirubin 0.8 mg/dL (0.2-1.0) Aspartate Amino Transf (AST/SGOT) 62 U/L (15-37) Alanine Aminotransferase (ALT/SGPT) 73 U/L (14-59) Alkaline Phosphatase 130 U/L (46-116) Troponin I Quantitative 0.030 ng/mL (0.000-0.055) BX-Oou-X-Type Natriuretic Peptide 14124 pg/mL (0-124) Total Protein 7.0 g/dL (6.4-8.2) Albumin 3.3 g/dL (3.4-5.0) Albumin/Globulin Ratio 0.9 (1.0-1.7) Glucose (Fingerstick) 54 mg/dL (70-99) Test 08/26/19 23:00 08/27/19 09:20 08/27/19 10:24 08/27/19 10:33 Glucose (Fingerstick) 186 mg/dL (70-99) 63 mg/dL (70-99) 41 mg/dL (70-99) Sodium Level 132 mmol/L (136-145) Potassium Level 5.0 mmol/L (3.5-5.1) Chloride Level 92 mmol/L (98-107) Carbon Dioxide Level 25 mmol/L (21-32) Anion Gap 15 (6-14) Blood Urea Nitrogen 94 mg/dL (7-20) Creatinine 3.7 mg/dL (0.6-1.0) Estimated GFR (Cockcroft-Gault) 14.9 Glucose Level 15 mg/dL (70-99) Calcium Level 9.4 mg/dL (8.5-10.1) Magnesium Level 2.6 mg/dL (1.8-2.4) Test 08/27/19 10:34 08/27/19 10:56 Glucose (Fingerstick) 30 mg/dL (70-99) 15 mg/dL (70-99) Images Images PORTABLE CHEST 1V INDICATION: Reason: pain, fall / Spl. Instructions: / History: . COMPARISON STUDY: 08/04/2019. FINDINGS: Lungs: Normal lung volume. Bilateral perihilar and basilar opacities. Pleura: Large right and small left pleural effusions. Heart and Mediastinum: Cardiomegaly. Tortuous thoracic aorta. IMPRESSION: 1. Bilateral perihilar and basilar opacities, likely edema or multifocal infection. 2. Large right and small left pleural effusions. Electronically signed by: Luis Alberto Linares MD (08/26/2019 5:42 PM) [id number] Assessment/Plan Assessment/Plan IMP NEGRITO-ATN WITH CR OF 3.5 CKD STAGE 3 WITH CR OF 1.5 HYPERKALEMIA ACUTE ON CHRONIC SYSTOLIC AND DIASTOLIC CHF ACUTE RESP FAILURE-COPD AND CHF ACUTE EXAC OF COPD ANEMIA LE EDEMA SEVERE DEMENTIA PAROXYSMAL AFIB PLAN STOP BETA JACEK DUE TO BRADYCARDIA AND HYPOTENSION CARDIOLOGY EVAL AND TX STOP K SUPPLEMENTS IV DIURETICS PULM TOILET SUPPORTIVE CARE PT IS NOT A CANDIDATE FOR DIALYSIS CHECK UA HIGH TX WITH KAYEXALATE POOR PROGNOSIS PLACE ZULLY Curry/W ATTENDING IVETTE HOOVER MD August 27, 2019 11:28
--- NOTE | 2019-08-27 13:32 | NUR ---
Pt transferred to 262 via bed, 6floor nurse around 12pm today for persistent hypoglycemia. Pt lethargic, but opens eyes, turns to look at RN and answers questions appropriately. When asked about code status, patient stated to this RN and Shahida Perez RN that she did NOT want a breathing tube to be placed should she need it. Pt also shook her head "no" when asked if wanted chest compressions to be done if her heart was to stop. Dr Tapia notified of this information, will be by to see patient. Blood sugar on arrival: 230, rechecking q 30 minutes, D10 infusing at 100cc/hr. Pt normotensive, bradycadic, heart rate in the 40s and sinus rhythm, 02 sat 100. Temp on arrival, 95.4, bare hugger applied, will recheck.
--- NOTE | 2019-08-27 13:36 | EKG ---
[facility] [address] [place] [id number] Test Date: 2019-08-27 Test Time: 13:31:27 Pat Name: JANNET BOBBY Department: Room: 262 1 Gender: F [employer] In[employer]: : 1955 Requested By: MARLEEN CEBALLOS Order Number: [id number] Reading MD: Denis Melgoza MD Measurements Intervals [place] Rate: 44 P: 0 [place]: 120 QRS: 219 QRSD: 102 T: 152 QT: 570 QTc: 491 Interpretive Statements SINUS BRADYCARDIA PROBABLE LEAD MISPLACEMENT VERSUS RVH NON-SPECIFIC ST/T CHANGES Electronically Signed On 08-30-2019 12:18:15 CDT by Denis Melgzoa MD
--- NOTE | 2019-08-27 13:47 | NUR ---
SS following for discharge planning. SS reviewed pt chart and discussed with RN. Pt is from home with family and is currently requiring oxygen. Pt had previous services with [facility] Pt also has had services with [facility] in the past. Pt's daughter currently wanting aggressive care. Pt is on IV Lasix and Full Code. Pt was transferred from 6S to CVICU due to sugars dropping. SS will continue to follow for discharge planning.
--- NOTE | 2019-08-27 13:52 | PDOC2 ---
MARLEEN CEBALLOS COPER HAND 08/27/19 1352: CARDIAC CONSULT DATE OF CONSULT Date of Consult DATE: 08/27/19 TIME: 13:32 REASON FOR CONSULT Reason for Consult: CHF REFERRING PHYSICIAN Referring Physician: Dayanara SOURCE Source: Chart review, Patient HISTORY OF PRESENT ILLNESS HISTORY OF PRESENT ILLNESS This is a 64 yo female admitted for complains of leg swelling and recent fall and SOA. She was DCd from [facility] the other day but daughter decided to send her to the hospital again due to swollen legs more than usual and also noted with more SOA. despite on O2. Also has had some chest pain but no nausea or vomiting. She is well known to me and treated multiple times from multiple hospitalizations for NICM, AFIB, cor pulmonale and CHF. Upon admission she has been noted with sinus bradycardia with hyperkaleima and severe NEGRITO. Daughter has been approached several times in regards to hospice but wants to continue aggressive measures still. She is noted with severe hypoglycemia which currently she is asymptomatic. She is a poor historian. Seh is currently laying flat while getting transferred to CVICU and in no respiratory distress. She did fall the other day but no notation of lost of consciousness or injury. PAST MEDICAL HISTORY Past Medical History Cardiovascular: HTN, HLP, AFIB, CHF, severe pulmonary HTN, NICM Pulmonary: COPD CENTRAL NERVOUS SYSTEM: CVA Hematology: anemia Psych: Anxiety Musculoskeletal: Osteoarthritis, Other (chronic pain syndrome) Endocrine: Hyperthyroidism Dermatology: No pertinent hx Renal: CKD PAST SURGICAL HISTORY Past Surgical History (right salpingectomy), thyroidectomy, R/LHC FAMILY HISTORY Family History: Heart Disease SOCIAL HISTORY Smoke: Quit ALCOHOL: none Drugs: None Lives: with Family CURRENT MEDICATIONS CURRENT MEDICATIONS Current Medications Medications (Trade) Dose Ordered Sig/Karen Route PRN Reason Start Time Stop Time Status Last Admin Dose Admin Calcium Gluconate (Calcium Gluconate) 1,000 mg 1X ONCE IVP 08/26/19 18:30 08/26/19 18:32 DC 08/26/19 18:58 Sodium Bicarbonate (Sodium Bicarb Adult 8.4% Syr) 50 meq 1X ONCE IV 08/26/19 18:30 08/26/19 18:32 DC 08/26/19 19:08 Dextrose (Dextrose 50%-Water Syringe) 25 gm 1X ONCE IV 08/26/19 18:30 08/26/19 18:32 DC 08/26/19 19:01 Insulin Human Regular (HumuLIN R VIAL) 10 unit 1X ONCE IV 08/26/19 18:30 08/26/19 18:32 DC 08/26/19 19:07 Sodium Polystyrene Sulfonate (Kayexalate) 30 gm 1X ONCE PO 08/26/19 18:30 08/26/19 18:32 DC 08/26/19 22:02 Furosemide (Lasix) 80 mg 1X ONCE IVP 08/26/19 18:45 08/26/19 18:48 DC 08/26/19 19:10 Fentanyl Citrate (Fentanyl 2ml Vial) 50 mcg 1X ONCE IVP 08/26/19 19:00 08/26/19 19:01 DC 08/26/19 18:57 Albuterol/ Ipratropium (Duoneb) 3 ml RTQID NEB 08/27/19 12:00 08/27/19 10:52 ALLERGIES ALLERGIES: Coded Allergies: Penicillins (Verified Allergy, Severe, anaphylaxis, 06/10/19) Tolerates merrem ROS Review of System limited, poor historian PHYSICAL EXAM General: Alert, Cooperative, No acute distress HEENT: Atraumatic, Mucous membr. moist/pink Lungs: Other (diminished) Heart: Regular rate (SB 40s), Other (distant heart sounds) Abdomen: Soft, Other (anasarca) Extremities: Other (anasarca) Skin: No breakdown Neuro: Normal speech, Sensation intact Psych/Mental Status: Other (flat affect) MUSCULOSKELETAL: Osteoarthritic changes both hands VITALS/I&O VITALS/I&O: Vital Signs Date Time Temp Pulse Resp B/P (MAP) Pulse Ox O2 Delivery O2 Flow Rate FiO2 08/27/19 11:28 97.6 55 16 96/40 (58) 91 Nasal Cannula 2.0 97.6 I & O 08/26/19 08/26/19 08/27/19 15:00 23:00 07:00 Intake Total 50 ml Balance 50 ml LABS Lab: Laboratory Tests Test 08/26/19 16:10 08/26/19 16:28 08/26/19 17:15 08/26/19 22:05 White Blood Count 4.8 x10^3/uL (4.0-11.0) Red Blood Count 3.60 x10^6/uL (3.50-5.40) Hemoglobin 11.1 g/dL (12.0-15.5) L Hematocrit 34.8 % (36.0-47.0) L Mean Corpuscular Volume 97 fL (79-100) Mean Corpuscular Hemoglobin 31 pg (25-35) Mean Corpuscular Hemoglobin Concent 32 g/dL (31-37) Red Cell Distribution Width 19.1 % (11.5-14.5) H Platelet Count 283 x10^3/uL (140-400) Neutrophils (%) (Auto) 65 % (31-73) Lymphocytes (%) (Auto) 30 % (24-48) Monocytes (%) (Auto) 5 % (0-9) Eosinophils (%) (Auto) 0 % (0-3) Basophils (%) (Auto) 0 % (0-3) Neutrophils # (Auto) 3.2 x10^3/uL (1.8-7.7) Lymphocytes # (Auto) 1.4 x10^3/uL (1.0-4.8) Monocytes # (Auto) 0.2 x10^3/uL (0.0-1.1) Eosinophils # (Auto) 0.0 x10^3/uL (0.0-0.7) Basophils # (Auto) 0.0 x10^3/uL (0.0-0.2) Prothrombin Time 35.7 SEC (11.7-14.0) H Prothrombin Time INR 3.5 (0.8-1.1) H O2 Saturation 97 % (92-99) Arterial Blood pH 7.34 (7.35-7.45) L Arterial Blood pCO2 at Patient Temp 31 mmHg (35-46) L Arterial Blood pO2 at Patient Temp 106 mmHg (65-108) Arterial Blood HCO3 17 mmol/L (21-28) L Arterial Blood Base Excess -8 mmol/L (-3-3) L Oxyhemoglobin 95.9 % Methemoglobin 0.5 % (0.0-1.9) Carbon Monoxide, Quantitative 0.3 % (0.0-1.9) FiO2 30% Sodium Level 131 mmol/L (136-145) L Potassium Level 6.3 mmol/L (3.5-5.1) *H Chloride Level 92 mmol/L (98-107) L Carbon Dioxide Level 25 mmol/L (21-32) Anion Gap 14 (6-14) Blood Urea Nitrogen 91 mg/dL (7-20) H Creatinine 3.5 mg/dL (0.6-1.0) H Estimated GFR (Cockcroft-Gault) 15.9 BUN/Creatinine Ratio 26 (6-20) H Glucose Level 60 mg/dL (70-99) L Calcium Level 9.3 mg/dL (8.5-10.1) Total Bilirubin 0.8 mg/dL (0.2-1.0) Aspartate Amino Transferase (AST) 62 U/L (15-37) H Alanine Aminotransferase (ALT) 73 U/L (14-59) H Alkaline Phosphatase 130 U/L (46-116) H Troponin I Quantitative 0.030 ng/mL (0.000-0.055) NN-Xpv-R-Type Natriuretic Peptide 03237 pg/mL (0-124) H Total Protein 7.0 g/dL (6.4-8.2) Albumin 3.3 g/dL (3.4-5.0) L Albumin/Globulin Ratio 0.9 (1.0-1.7) L Glucose (Fingerstick) 54 mg/dL (70-99) L Test 08/26/19 23:00 08/27/19 09:20 08/27/19 10:24 08/27/19 10:33 Glucose (Fingerstick) 186 mg/dL (70-99) H 63 mg/dL (70-99) L 41 mg/dL (70-99) *L Sodium Level 132 mmol/L (136-145) L Potassium Level 5.0 mmol/L (3.5-5.1) # Chloride Level 92 mmol/L (98-107) L Carbon Dioxide Level 25 mmol/L (21-32) Anion Gap 15 (6-14) H Blood Urea Nitrogen 94 mg/dL (7-20) H Creatinine 3.7 mg/dL (0.6-1.0) H Estimated GFR (Cockcroft-Gault) 14.9 Glucose Level 15 mg/dL (70-99) *L Calcium Level 9.4 mg/dL (8.5-10.1) Magnesium Level 2.6 mg/dL (1.8-2.4) H Test 08/27/19 10:34 08/27/19 10:56 08/27/19 11:17 08/27/19 11:36 Glucose (Fingerstick) 30 mg/dL (70-99) *L 15 mg/dL (70-99) *L 136 mg/dL (70-99) H 152 mg/dL (70-99) H Test 08/27/19 12:00 08/27/19 12:32 08/27/19 12:56 Glucose Level 296 mg/dL (70-99) H Glucose (Fingerstick) 230 mg/dL (70-99) H 164 mg/dL (70-99) H Laboratory Tests 08/26/19 16:10 Laboratory Tests 08/26/19 17:15 08/27/19 09:20 08/27/19 12:00 ECHOCARDIOGRAM ECHOCARDIOGRAM <Conclusion> The left ventricular systolic function is mildly decreased. The Ejection Frac tion is 45%. Septal wall motion consistent with conduction abnormality. Otherwise, mild global hypokinesis. Tissue Doppler imaging reveals moderate left ventricular diastolic dysfunction. Doppler and Color Flow revealed moderate aortic regurgitation. Doppler and Color Flow revealed mild to moderate tricuspid regurgitation with an estimated PAP of 84 mmHg. There is severe pulmonary hypertension. The IVC is dilated and collapses <50% with inspiration. DATE: 06/07/19 1216 HEART CATH HEART CATH FINDINGS A. RIGHT HEART CATHETERIZATION 1. Intracardiac pressures: Mean right atrial pressure 31 mmHg, right ventricular pressure 88/22 mmHg, pulmonary artery pressure 88/22 mmHg with mean PA pressure 51 mmHg and mean pulmonary capillary wedge pressure 33 mmHg. This is consistent with moderate pulmonary hypertension secondary to elevated left ventricular filling pressures. Right ventricular filling pressures are elevated as well. 2. Oxygen saturations: Right atrium 47.4%, pulmonary artery 47.3%, femoral arterial sheath 88.6%. No evidence of intracardiac shunt. 3. Cardiac output by Jing method 2.75 L/m. B. LEFT HEART CATHETERIZATION 1. Hemodynamics: Elevated left ventricle end-diastolic pressure of 24 mmHg. No pullback gradient across the aortic valve. 2. Coronary angiography: a. The left main coronary artery arose from the left sinus of Valsalva, gave rise to the left anterior descending and left circumflex arteries and did not show any significant stenosis. b. The left anterior descending artery did not show any significant stenosis. c. The left circumflex artery did not show any significant stenosis. d. The right coronary artery was a large and dominant vessel arising from the right sinus of Valsalva that did not show any significant stenosis. Conclusion 1. No significant coronary artery disease 2. Moderate pulmonary hypertension with elevated left ventricular and right ventriclular filling pressures 3. No evidence of intracardial shunt Recommendations Continue aggressive diuresis for acute on chronic combined systolic and diastolic heart failure DATE: 04/26/19 1309 ASSESSMENT/PLAN ASSESSMENT/PLAN 1. Acute on chronic respiratory failure; multifactorial as noted below 2. Acute on chronic diastolic/systolic CHF with large right pleural effusion 3. NICM; LVEF 45% Recent cath without obstructive disease 3. PAFIB/flutter with RVR; maintaining SR 4. Severe NEGRITO on CKD3 with hyperkalemia: K corrected with kayexelate/lasix. per nephrology 5. Severe pulmonary HTN/cor pulmonale 6. COPD with past tobaccoism 7. Nontraumatic fall 8. Asymptomatic SB: low 40s with associated with metabolic issues. 9. Transaminitis with coagulopathy: suspect cardiohepatorenal syndrome 10. Severe Hypoglycemia with unawareness: per PCP Recommendations 1. No ACEi/ARB. Lasix therapy, further adjustment per renal labs and nephrology. NO AV venus blocking agents. 2. Stop eliquis. Hold amiodarone for now. Monitor QTc currently at 491. Transiti on ASA. 3. May need thoracentesis, defer to pulmonary 4. Follow up in office. Recommend HH and follow up labs as an outpt 5. 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 GUCCI SCHMITZ MD 08/27/19 2018: CARDIAC CONSULT ASSESSMENT/PLAN ASSESSMENT/PLAN Patient seen and examined. Agree with CLOTH WIRE WEAVER's assessment and plan. Ac on chr resp failure multifactorial Will defer diuretic therapy to nephrology team secondary to renal insufficiency Possible thoracentesis by pulmonary team PAF maintaining SR Agree with holding amiodarone She is poor AC candidate for termite treater helper AC Poor overall prognosis - consider hospice Thank you for your consultation MARLEEN CEBALLOS APRN August 27, 2019 13:52 GUCCI SCHMITZ MD August 27, 2019 20:18
[2019-08-27] MEDS: FUROSEMIDE 40 MG/4 ML VIAL. IVP SCH (14:00)
[2019-08-27] MEDS: BUDESONIDE 0.5 MG/2 ML NEBU. NEB SCH (19:18)
--- NOTE | 2019-08-27 20:43 | NUR ---
Pt was transferred to room 656, report given to KEZIA Pérez. All belongings was sent with pt.
[2019-08-27] MEDS: DEXTROSE 50% 25 GM / 50ML DISP.SYRIN. IV PRN ×2 (21:00→21:20)
--- NOTE | 2019-08-27 21:00 | NUR ---
This patient was transfered to ICU early in the day for uncontrolled hypoglycemia. patient was given 5% IV dextrose. COKE LOADER reported nurse to have a BG in the 200s and that the patient had hypothermia which had been treated with a bear hugger. Patient transfered to telemetry floor without bear hugger or orders for more D5. BG of 24 was recorded when patient first got to floor. patient was given 25 mg Iv dextrose Iv push. lab came to draw a venous blood glucose. A second fingerstick BG was checked at 2114 and a reading of 27 was found. Another 25 mg of IV dextrose was given. Another BG was checked at 2124. it was 367. Lab results for venous BG came in and it was 667. orders was given to check BG again at point of care and have venous BG q4.
[2019-08-27] MEDS: IV DEXTROSE 10% 1,000 ML IV SCH (21:45)
[2019-08-27] MEDS ORDERED: IV DEXTROSE 10% 1,000 ML IV ONE (22:00)
[2019-08-28] MEDS: LACTOBACILLUS RHAMNOSUS GG 1 CAPSULE. PO SCH ×3 (01:12→20:03)
[2019-08-28] MEDS: BENZONATATE 100 MG CAPSULE. PO SCH ×4 (01:12→20:03)
[2019-08-28 03:00] VITALS: BP 90/57
[2019-08-28 04:55] LABS: BASO % 0 % (0-3); EOS % 0 % (0-3); HEMATOCRIT 29.5 % (36.0-47.0); HEMOGLOBIN 9.5 g/dL (12.0-15.5); LYMPH # 0.7 x10^3/uL (1.0-4.8); LYMPH % 6 % (24-48); MEAN CORPUSCULAR HEMOGLOBIN 31 pg (25-35); MEAN CORPUSCULAR HGB CONC 32 g/dL (31-37); MEAN CORPUSCULAR VOLUME 97 fL (79-100); MONO # 0.5 x10^3/uL (0.0-1.1); MONO % 5 % (0-9); NEUT # 9.7 x10^3/uL (1.8-7.7); NEUT % 89 % (31-73); PLATELET COUNT 178 x10^3/uL (140-400); RED BLOOD COUNT 3.06 x10^6/uL (3.50-5.40); RED CELL DISTRIBUTION WIDTH 17.9 % (11.5-14.5)
[2019-08-28 05:23] LABS: CREATININE 4.1 mg/dL (0.6-1.0); GFR 13.3; POTASSIUM 4.8 mmol/L (3.5-5.1)
[2019-08-28] MEDS: LEVOTHYROXINE 100 MCG TABLET PO SCH (06:00)
[2019-08-28] MEDS: DEXTROSE 50% 25 GM / 50ML DISP.SYRIN. IV PRN (06:32)
[2019-08-28] MEDS: BUDESONIDE 0.5 MG/2 ML NEBU. NEB SCH ×2 (07:34→20:00)
[2019-08-28] MEDS: IPRATRPIUM/ALBUTEROL 0.5/2.5MG 3 ML NEBU. NEB SCH ×4 (07:34→20:00)
--- NOTE | 2019-08-28 07:35 | PDOC ---
PROGRESS NOTES Chief Complaint Chief Complaint A/P: Hyperkalemia - given calcium gluconate, kayexelate, lasix Acute systolic and diastolic heart failure - given IV lasix initially, will continue Moderate aortic regurgitation Acute kidney injury - on CKD - likely vasomotor nephropathy vs cardiorenal syndrome Respiratory failure Chronic pain Previous tobacco abuse. Acute hypoxic respiratory failure, multifactorial - CHF, COPD, Acute chronic obstructive pulmonary disease exacerbation. Rule out COVID-19. Paroxysmal atrial flutter/fibrillation. Hypothyroidism acquired status post thyroidectomy. Anemia. CAD Dementia - likely vascular with prior TIAs GERD Hyperlipidemia Hypertension Macrocytosis - UTIs FEN - Cardiac diet PPX - eliquis FULL CODE Dispo - inpatient 2 midnights History of Present Illness History of Present Illness Ms Levin is a 64 yo F w/ PMHx COPD, severe cardiomyopathy, CHF EF 40-45%, coronary artery disease, HLD, GERD, paroxysmal afib, ex-smoker who was brought to ED from home where she lives with her daughter by EMS in respiratory distress with swelling and chest discomfort, She was discharged earlier this year to SNF and was on the ventilator earlier this year. Last hospital stay she was discharged home with home health. recently here on 08/02/2019 for heart failure and hypoxia. Her COVID test at that time was negative She has not felt well for the past few days. She does have cough with some sputum production. She has elevated potassium of 6.3 and a BUN of 91 and a creatinine of 3.5. Consults: Cardiology, Pulmonary and Nephrology. 08/26: This morning she is resting relatively comfortably. Verbalizing much with me denies that her chest discomfort and shortness of breath are slightly improved. On further review, labs returned with glucose of 15. D50 given x1 ampule with increase to 63, but now persistently low, will change to D10 infusion Have contacted her daughter Hallie, and she is made it clear that her mother is requested not to be back on a ventilator. [facility] has asked that we give her "1 more time" if she has cardiac or respiratory arrest. She notes the reason she revoked hospice as she was not comfortable with her mother receiving morphine for pain and for shortness of breath and felt like it was slowly killing her. Overnight was transferred to ICU on D10 GTT, glucose came up into the 600s was transferred back to [facility] telemetry. Temp 93 F overnight. Care order placed and D10 continued glucose 60 this morning BUN 99. Creatinine 4.1. More alert today, no complaints. Vitals Vitals Vital Signs Date Time Temp Pulse Resp B/P (MAP) Pulse Ox O2 Delivery O2 Flow Rate FiO2 08/28/19 03:00 98.1 61 20 90/57 (68) 91 98.1 08/27/19 19:35 Nasal Cannula 3.0 Physical Exam General: Alert, Cooperative, No acute distress Heart: Regular rate (SB 40s), Other (distant heart sounds) Lungs: Wheezing, Crackles, Other Abdomen: Soft, Other (anasarca) Extremities: Other (anasarca) Skin: No breakdown Labs LABS Laboratory Tests Test 08/27/19 09:20 08/27/19 10:24 08/27/19 10:33 08/27/19 10:34 Sodium Level 132 mmol/L (136-145) Potassium Level 5.0 mmol/L (3.5-5.1) Chloride Level 92 mmol/L (98-107) Carbon Dioxide Level 25 mmol/L (21-32) Anion Gap 15 (6-14) Blood Urea Nitrogen 94 mg/dL (7-20) Creatinine 3.7 mg/dL (0.6-1.0) Estimated GFR (Cockcroft-Gault) 14.9 Glucose Level 15 mg/dL (70-99) Calcium Level 9.4 mg/dL (8.5-10.1) Magnesium Level 2.6 mg/dL (1.8-2.4) Glucose (Fingerstick) 63 mg/dL (70-99) 41 mg/dL (70-99) 30 mg/dL (70-99) Test 08/27/19 10:56 08/27/19 11:17 08/27/19 11:36 08/27/19 12:00 Glucose (Fingerstick) 15 mg/dL (70-99) 136 mg/dL (70-99) 152 mg/dL (70-99) Glucose Level 296 mg/dL (70-99) Test 08/27/19 12:32 08/27/19 12:56 08/27/19 13:36 08/27/19 14:16 Glucose (Fingerstick) 230 mg/dL (70-99) 164 mg/dL (70-99) 176 mg/dL (70-99) 246 mg/dL (70-99) Test 08/27/19 15:38 08/27/19 20:50 08/27/19 20:53 08/27/19 21:00 Glucose (Fingerstick) 234 mg/dL (70-99) 39 mg/dL (70-99) 24 mg/dL (70-99) Glucose Level 667 mg/dL (70-99) Test 08/27/19 21:15 08/27/19 21:30 08/27/19 23:30 08/28/19 04:35 Glucose (Fingerstick) 27 mg/dL (70-99) 367 mg/dL (70-99) 168 mg/dL (70-99) Glucose Level 158 mg/dL (70-99) 60 mg/dL (70-99) White Blood Count 11.0 x10^3/uL (4.0-11.0) Red Blood Count 3.06 x10^6/uL (3.50-5.40) Hemoglobin 9.5 g/dL (12.0-15.5) Hematocrit 29.5 % (36.0-47.0) Mean Corpuscular Volume 97 fL (79-100) Mean Corpuscular Hemoglobin 31 pg (25-35) Mean Corpuscular Hemoglobin Concent 32 g/dL (31-37) Red Cell Distribution Width 17.9 % (11.5-14.5) Platelet Count 178 x10^3/uL (140-400) Neutrophils (%) (Auto) 89 % (31-73) Lymphocytes (%) (Auto) 6 % (24-48) Monocytes (%) (Auto) 5 % (0-9) Eosinophils (%) (Auto) 0 % (0-3) Basophils (%) (Auto) 0 % (0-3) Neutrophils # (Auto) 9.7 x10^3/uL (1.8-7.7) Lymphocytes # (Auto) 0.7 x10^3/uL (1.0-4.8) Monocytes # (Auto) 0.5 x10^3/uL (0.0-1.1) Eosinophils # (Auto) 0.0 x10^3/uL (0.0-0.7) Basophils # (Auto) 0.0 x10^3/uL (0.0-0.2) Sodium Level 132 mmol/L (136-145) Potassium Level 4.8 mmol/L (3.5-5.1) Chloride Level 91 mmol/L (98-107) Carbon Dioxide Level 24 mmol/L (21-32) Anion Gap 17 (6-14) Blood Urea Nitrogen 99 mg/dL (7-20) Creatinine 4.1 mg/dL (0.6-1.0) Estimated GFR (Cockcroft-Gault) 13.3 Calcium Level 9.0 mg/dL (8.5-10.1) Magnesium Level 2.5 mg/dL (1.8-2.4) Test 08/28/19 06:46 Glucose (Fingerstick) 68 mg/dL (70-99) Assessment and Plan Assessmemt and Plan Problems Medical Problems: (1) CHF exacerbation Status: Acute (2) Hyperkalemia Status: Acute Comment Review of Relevant I have reviewed the following items suad (where applicable) has been applied. Labs Laboratory Tests Test 08/26/19 16:10 08/26/19 16:28 08/26/19 17:15 08/26/19 22:05 White Blood Count 4.8 x10^3/uL (4.0-11.0) Red Blood Count 3.60 x10^6/uL (3.50-5.40) Hemoglobin 11.1 g/dL (12.0-15.5) Hematocrit 34.8 % (36.0-47.0) Mean Corpuscular Volume 97 fL (79-100) Mean Corpuscular Hemoglobin 31 pg (25-35) Mean Corpuscular Hemoglobin Concent 32 g/dL (31-37) Red Cell Distribution Width 19.1 % (11.5-14.5) Platelet Count 283 x10^3/uL (140-400) Neutrophils (%) (Auto) 65 % (31-73) Lymphocytes (%) (Auto) 30 % (24-48) Monocytes (%) (Auto) 5 % (0-9) Eosinophils (%) (Auto) 0 % (0-3) Basophils (%) (Auto) 0 % (0-3) Neutrophils # (Auto) 3.2 x10^3/uL (1.8-7.7) Lymphocytes # (Auto) 1.4 x10^3/uL (1.0-4.8) Monocytes # (Auto) 0.2 x10^3/uL (0.0-1.1) Eosinophils # (Auto) 0.0 x10^3/uL (0.0-0.7) Basophils # (Auto) 0.0 x10^3/uL (0.0-0.2) Prothrombin Time 35.7 SEC (11.7-14.0) Prothromb Time International Ratio 3.5 (0.8-1.1) O2 Saturation 97 % (92-99) Arterial Blood pH 7.34 (7.35-7.45) Arterial Blood pCO2 at Patient Temp 31 mmHg (35-46) Arterial Blood pO2 at Patient Temp 106 mmHg (65-108) Arterial Blood HCO3 17 mmol/L (21-28) Arterial Blood Base Excess -8 mmol/L (-3-3) Oxyhemoglobin 95.9 % Methemoglobin 0.5 % (0.0-1.9) Carbon Monoxide, Quantitative 0.3 % (0.0-1.9) FiO2 30% Sodium Level 131 mmol/L (136-145) Potassium Level 6.3 mmol/L (3.5-5.1) Chloride Level 92 mmol/L (98-107) Carbon Dioxide Level 25 mmol/L (21-32) Anion Gap 14 (6-14) Blood Urea Nitrogen 91 mg/dL (7-20) Creatinine 3.5 mg/dL (0.6-1.0) Estimated GFR (Cockcroft-Gault) 15.9 BUN/Creatinine Ratio 26 (6-20) Glucose Level 60 mg/dL (70-99) Calcium Level 9.3 mg/dL (8.5-10.1) Total Bilirubin 0.8 mg/dL (0.2-1.0) Aspartate Amino Transf (AST/SGOT) 62 U/L (15-37) Alanine Aminotransferase (ALT/SGPT) 73 U/L (14-59) Alkaline Phosphatase 130 U/L (46-116) Troponin I Quantitative 0.030 ng/mL (0.000-0.055) PF-Cud-Z-Type Natriuretic Peptide 20463 pg/mL (0-124) Total Protein 7.0 g/dL (6.4-8.2) Albumin 3.3 g/dL (3.4-5.0) Albumin/Globulin Ratio 0.9 (1.0-1.7) Glucose (Fingerstick) 54 mg/dL (70-99) Test 08/26/19 23:00 08/27/19 09:20 08/27/19 10:24 08/27/19 10:33 Glucose (Fingerstick) 186 mg/dL (70-99) 63 mg/dL (70-99) 41 mg/dL (70-99) Sodium Level 132 mmol/L (136-145) Potassium Level 5.0 mmol/L (3.5-5.1) Chloride Level 92 mmol/L (98-107) Carbon Dioxide Level 25 mmol/L (21-32) Anion Gap 15 (6-14) Blood Urea Nitrogen 94 mg/dL (7-20) Creatinine 3.7 mg/dL (0.6-1.0) Estimated GFR (Cockcroft-Gault) 14.9 Glucose Level 15 mg/dL (70-99) Calcium Level 9.4 mg/dL (8.5-10.1) Magnesium Level 2.6 mg/dL (1.8-2.4) Test 08/27/19 10:34 08/27/19 10:56 08/27/19 11:17 08/27/19 11:36 Glucose (Fingerstick) 30 mg/dL (70-99) 15 mg/dL (70-99) 136 mg/dL (70-99) 152 mg/dL (70-99) Test 08/27/19 12:00 08/27/19 12:32 08/27/19 12:56 08/27/19 13:36 Glucose Level 296 mg/dL (70-99) Glucose (Fingerstick) 230 mg/dL (70-99) 164 mg/dL (70-99) 176 mg/dL (70-99) Test 08/27/19 14:16 08/27/19 15:38 08/27/19 20:50 08/27/19 20:53 Glucose (Fingerstick) 246 mg/dL (70-99) 234 mg/dL (70-99) 39 mg/dL (70-99) 24 mg/dL (70-99) Test 08/27/19 21:00 08/27/19 21:15 08/27/19 21:30 08/27/19 23:30 Glucose Level 667 mg/dL (70-99) 158 mg/dL (70-99) Glucose (Fingerstick) 27 mg/dL (70-99) 367 mg/dL (70-99) 168 mg/dL (70-99) Test 08/28/19 04:35 08/28/19 06:46 White Blood Count 11.0 x10^3/uL (4.0-11.0) Red Blood Count 3.06 x10^6/uL (3.50-5.40) Hemoglobin 9.5 g/dL (12.0-15.5) Hematocrit 29.5 % (36.0-47.0) Mean Corpuscular Volume 97 fL (79-100) Mean Corpuscular Hemoglobin 31 pg (25-35) Mean Corpuscular Hemoglobin Concent 32 g/dL (31-37) Red Cell Distribution Width 17.9 % (11.5-14.5) Platelet Count 178 x10^3/uL (140-400) Neutrophils (%) (Auto) 89 % (31-73) Lymphocytes (%) (Auto) 6 % (24-48) Monocytes (%) (Auto) 5 % (0-9) Eosinophils (%) (Auto) 0 % (0-3) Basophils (%) (Auto) 0 % (0-3) Neutrophils # (Auto) 9.7 x10^3/uL (1.8-7.7) Lymphocytes # (Auto) 0.7 x10^3/uL (1.0-4.8) Monocytes # (Auto) 0.5 x10^3/uL (0.0-1.1) Eosinophils # (Auto) 0.0 x10^3/uL (0.0-0.7) Basophils # (Auto) 0.0 x10^3/uL (0.0-0.2) Sodium Level 132 mmol/L (136-145) Potassium Level 4.8 mmol/L (3.5-5.1) Chloride Level 91 mmol/L (98-107) Carbon Dioxide Level 24 mmol/L (21-32) Anion Gap 17 (6-14) Blood Urea Nitrogen 99 mg/dL (7-20) Creatinine 4.1 mg/dL (0.6-1.0) Estimated GFR (Cockcroft-Gault) 13.3 Glucose Level 60 mg/dL (70-99) Calcium Level 9.0 mg/dL (8.5-10.1) Magnesium Level 2.5 mg/dL (1.8-2.4) Glucose (Fingerstick) 68 mg/dL (70-99) Laboratory Tests Test 08/27/19 09:20 08/27/19 10:24 08/27/19 10:33 08/27/19 10:34 Sodium Level 132 mmol/L (136-145) Potassium Level 5.0 mmol/L (3.5-5.1) Chloride Level 92 mmol/L (98-107) Carbon Dioxide Level 25 mmol/L (21-32) Anion Gap 15 (6-14) Blood Urea Nitrogen 94 mg/dL (7-20) Creatinine 3.7 mg/dL (0.6-1.0) Estimated GFR (Cockcroft-Gault) 14.9 Glucose Level 15 mg/dL (70-99) Calcium Level 9.4 mg/dL (8.5-10.1) Magnesium Level 2.6 mg/dL (1.8-2.4) Glucose (Fingerstick) 63 mg/dL (70-99) 41 mg/dL (70-99) 30 mg/dL (70-99) Test 08/27/19 10:56 08/27/19 11:17 08/27/19 11:36 08/27/19 12:00 Glucose (Fingerstick) 15 mg/dL (70-99) 136 mg/dL (70-99) 152 mg/dL (70-99) Glucose Level 296 mg/dL (70-99) Test 08/27/19 12:32 08/27/19 12:56 08/27/19 13:36 08/27/19 14:16 Glucose (Fingerstick) 230 mg/dL (70-99) 164 mg/dL (70-99) 176 mg/dL (70-99) 246 mg/dL (70-99) Test 08/27/19 15:38 08/27/19 20:50 08/27/19 20:53 08/27/19 21:00 Glucose (Fingerstick) 234 mg/dL (70-99) 39 mg/dL (70-99) 24 mg/dL (70-99) Glucose Level 667 mg/dL (70-99) Test 08/27/19 21:15 08/27/19 21:30 08/27/19 23:30 08/28/19 04:35 Glucose (Fingerstick) 27 mg/dL (70-99) 367 mg/dL (70-99) 168 mg/dL (70-99) Glucose Level 158 mg/dL (70-99) 60 mg/dL (70-99) White Blood Count 11.0 x10^3/uL (4.0-11.0) Red Blood Count 3.06 x10^6/uL (3.50-5.40) Hemoglobin 9.5 g/dL (12.0-15.5) Hematocrit 29.5 % (36.0-47.0) Mean Corpuscular Volume 97 fL (79-100) Mean Corpuscular Hemoglobin 31 pg (25-35) Mean Corpuscular Hemoglobin Concent 32 g/dL (31-37) Red Cell Distribution Width 17.9 % (11.5-14.5) Platelet Count 178 x10^3/uL (140-400) Neutrophils (%) (Auto) 89 % (31-73) Lymphocytes (%) (Auto) 6 % (24-48) Monocytes (%) (Auto) 5 % (0-9) Eosinophils (%) (Auto) 0 % (0-3) Basophils (%) (Auto) 0 % (0-3) Neutrophils # (Auto) 9.7 x10^3/uL (1.8-7.7) Lymphocytes # (Auto) 0.7 x10^3/uL (1.0-4.8) Monocytes # (Auto) 0.5 x10^3/uL (0.0-1.1) Eosinophils # (Auto) 0.0 x10^3/uL (0.0-0.7) Basophils # (Auto) 0.0 x10^3/uL (0.0-0.2) Sodium Level 132 mmol/L (136-145) Potassium Level 4.8 mmol/L (3.5-5.1) Chloride Level 91 mmol/L (98-107) Carbon Dioxide Level 24 mmol/L (21-32) Anion Gap 17 (6-14) Blood Urea Nitrogen 99 mg/dL (7-20) Creatinine 4.1 mg/dL (0.6-1.0) Estimated GFR (Cockcroft-Gault) 13.3 Calcium Level 9.0 mg/dL (8.5-10.1) Magnesium Level 2.5 mg/dL (1.8-2.4) Test 08/28/19 06:46 Glucose (Fingerstick) 68 mg/dL (70-99) Medications Current Medications Calcium Gluconate (Calcium Gluconate) 1,000 mg 1X ONCE IVP Last administered on 08/26/19at 18:58; Start 08/26/19 at 18:30; Stop 08/26/19 at 18:32; Status DC Sodium Bicarbonate (Sodium Bicarb Adult 8.4% Syr) 50 meq 1X ONCE IV Last administered on 08/26/19 19:08; Start 08/26/19 at 18:30; Stop 08/26/19 at 18:32; Status DC Dextrose (Dextrose 50%-Water Syringe) 25 gm 1X ONCE IV Last administered on 08/26/19at 19:01; Start 08/26/19 at 18:30; Stop 08/26/19 at 18:32; Status DC Insulin Human Regular (HumuLIN R VIAL) 10 unit 1X ONCE IV Last administered on 08/26/19at 19:07; Start 08/26/19 at 18:30; Stop 08/26/19 at 18:32; Status DC Sodium Polystyrene Sulfonate (Kayexalate) 30 gm 1X ONCE PO Last administered on 08/26/19at 22:02; Start 08/26/19 at 18:30; Stop 08/26/19 at 18:32; Status DC Furosemide (Lasix) 80 mg 1X ONCE IVP Last administered on 08/26/19at 19:10; Start 08/26/19 at 18:45; Stop 08/26/19 at 18:48; Status DC Fentanyl Citrate (Fentanyl 2ml Vial) 50 mcg 1X ONCE IVP Last administered on 08/26/19at 18:57; Start 08/26/19 at 19:00; Stop 08/26/19 at 19:01; Status DC Ondansetron HCl (Zofran) 4 mg PRN Q8HRS PRN IV NAUSEA/VOMITING; Start 08/26/19 at 19:00; Stop 08/27/19 at 10:15; Status DC Fentanyl Citrate (Fentanyl 2ml Vial) 50 mcg PRN Q1HR PRN IV PAIN; Start 08/26/19 at 19:00; Stop 08/27/19 at 18:59; Status DC Dextrose (Dextrose 50%-Water Syringe) 25 gm 1X ONCE IV ; Start 08/26/19 at 22:30; Stop 08/26/19 at 22:31; Status DC Ondansetron HCl (Zofran) 4 mg PRN Q4HRS PRN IV NAUSEA/VOMITING; Start 08/27/19 at 10:15 Albuterol Sulfate (Ventolin Neb Soln) 2.5 mg PRN Q4HRS PRN NEB SHORTNESS OF BREATH; Start 08/27/19 at 10:15 Amiodarone HCl (Cordarone) 200 mg DAILY PO ; Start 08/27/19 at 11:00; Stop 08/27/19 at 13:50; Status DC Apixaban (Eliquis) 2.5 mg BID PO ; Start 08/27/19 at 11:00; Stop 08/27/19 at 13:47; Status DC Benzonatate (Tessalon Perle) 100 mg TID PO Last administered on 08/28/19at 01:12; Start 08/27/19 at 11:00 Budesonide (Pulmicort) 0.5 mg RTBID NEB Last administered on 08/27/19at 19:18; Start 08/27/19 at 20:00 Albuterol/ Ipratropium (Duoneb) 3 ml RTQID NEB Last administered on 08/27/19at 19:18; Start 08/27/19 at 12:00 Lactobacillus Rhamnosus (Culturelle) 1 cap BID PO Last administered on 08/28/19at 01:12; Start 08/27/19 at 21:00 Levothyroxine Sodium (Synthroid) 100 mcg DAILY06 PO ; Start 08/27/19 at 10:30 Metoprolol Tartrate (Lopressor) 25 mg BID PO ; Start 08/27/19 at 11:00 Nicotine (Nicoderm Cq 21mg) 1 patch PRN DAILY PRN TD SMOKING CESSATION; Start 08/27/19 at 09:00 Furosemide (Lasix) 40 mg BID92 IVP ; Start 08/27/19 at 14:00; Stop 08/28/19 at 14:01 Dextrose (Dextrose 50%-Water Syringe) 25 gm STK-MED ONCE IV ; Start 08/27/19 at 10:18; Stop 08/27/19 at 10:18; Status DC Dextrose (Dextrose 50%-Water Syringe) 25 gm STK-MED ONCE IV ; Start 08/27/19 at 10:25; Stop 08/27/19 at 10:26; Status DC Dextrose (Dextrose 50%-Water Syringe) 12.5 gm PRN Q15MIN PRN IV SEE COMMENTS L ast administered on 08/28/19at 06:32; Start 08/27/19 at 10:45 Dextrose 500 ml @ 50 mls/hr 1X ONCE IV ; Start 08/27/19 at 10:45; Stop 08/27/19 at 11:03; Status DC Dextrose 500 ml @ 75 mls/hr Q6H40M IV ; Start 08/27/19 at 10:45; Stop 08/27/19 at 11:03; Status DC Dextrose 1,000 ml @ 100 mls/hr Q10H IV ; Start 08/27/19 at 11:15; Stop 08/27/19 at 18:06; Status DC Aspirin (Ecotrin) 81 mg DAILYWBKFT PO ; Start 08/28/19 at 08:00 Dextrose 1,000 ml @ 100 mls/hr Q10H IV ; Start 08/27/19 at 21:45 Dextrose 1,000 ml @ 20 mls/hr Q24H ONCE IV Last administered on 08/28/19at 06:32; Start 08/27/19 at 22:00; Stop 08/28/19 at 21:59 Active Scripts Active Lasix (Furosemide) 40 Mg Tablet 1 Tab PO DAILY 30 Days Culturelle (Lactobacillus Rhamnosus Gg) 1 Each Cap.sprink 1 Cap PO BID 30 Days Budesonide 0.5 Mg/2 Ml Ampul.neb 0.5 Mg NEB RTBID 30 Days Amiodarone Hcl 200 Mg Tablet 200 Mg PO DAILY 30 Days Proair Hfa (Albuterol Sulfate) 8.5 Gm Hfa.aer.ad 2.5 Mg NEB PRN Q4HRS PRN 30 Days Duoneb 0.5-3(2.5) Mg/3 Ml (Albuterol/Ipratropium) 3 Ml Ampul.neb 3 Ml NEB RTQID 30 Days Eliquis (Apixaban) 2.5 Mg Tablet 2.5 Mg PO BID 60 Days Metoprolol Tartrate 25 Mg Tablet 25 Mg PO BID [Nicotine 21MG] 1 PATCH Patch 1 Patch TD PRN DAILY PRN MDD 1 Tessalon Perle (Benzonatate) 100 Mg Capsule 1 Cap PO TID Flonase Allergy Relief (Fluticasone Propionate) 9.9 Ml [place].susp 2 Sprays NS DAILY Reported Levothyroxine Sodium 100 Mcg Tablet 1 Tab PO DAILY Klor-Con M20 (Potassium Chloride) 20 Meq Tab.er.prt 20 Meq PO BID NEW PRESCRIPTIONS Vitals/I & O Vital Sign - Last 24 Hours 08/27/19 08/27/19 08/27/19 08/27/19 07:46 07:50 10:53 11:28 Temp 97.4 97.6 97.4 97.6 Pulse 46 55 Resp 14 16 B/P (MAP) 98/35 (56) 96/40 (58) Pulse Ox 94 95 91 O2 Delivery Nasal Cannula Nasal Cannula Nasal Cannula Nasal Cannula O2 Flow Rate 2.0 2.0 3.0 2.0 08/27/19 08/27/19 08/27/19 08/27/19 12:30 12:45 13:00 13:30 Temp 95.4 95.4 Pulse 44 44 42 42 Resp 16 16 16 16 B/P (MAP) 109/64 (79) 104/71 (82) 118/53 (74) 111/53 (72) Pulse Ox 95 95 95 95 O2 Delivery Nasal Cannula Nasal Cannula Nasal Cannula Nasal Cannula O2 Flow Rate 2.0 2.0 2.0 2.0 08/27/19 08/27/19 08/27/19 08/27/19 14:00 14:00 15:00 15:19 Pulse 42 44 Resp 16 14 B/P (MAP) 104/51 (68) 96/53 (67) Pulse Ox 95 95 O2 Delivery Nasal Cannula Nasal Cannula Nasal Cannula Nasal Cannula O2 Flow Rate 2.0 2.0 2.0 3.0 08/27/19 08/27/19 08/27/19 08/27/19 16:00 17:00 19:00 19:29 Temp 96.7 97.0 96.7 97.0 Pulse 44 50 50 Resp 12 14 20 B/P (MAP) 115/55 (75) 113/55 (74) 108/54 (72) Pulse Ox 95 95 92 O2 Delivery Nasal Cannula Nasal Cannula Nasal Cannula Nasal Cannula O2 Flow Rate 2.0 2.0 3.0 3.0 08/27/19 08/27/19 08/27/19 08/27/19 19:30 19:35 20:30 21:00 Temp 94.2 94.2 Pulse 54 54 Resp 18 B/P (MAP) 96/49 (65) 96/54 Pulse Ox 98 O2 Delivery Nasal Cannula Nasal Cannula O2 Flow Rate 3.0 3.0 08/27/19 08/28/19 23:00 03:00 Temp 96.2 98.1 96.2 98.1 Pulse 56 61 Resp 18 20 B/P (MAP) 107/49 (68) 90/57 (68) Pulse Ox 92 91 Intake and Output 08/27/19 08/27/19 08/28/19 15:00 23:00 07:00 Intake Total 150 ml 100 ml 0 ml Output Total 125 ml Balance 150 ml 100 ml -125 ml NAKITA RODRIGUES MD August 28, 2019 07:34
[2019-08-28 07:43] LABS: % BANDS 1 % (0-9); % LYMPHS 4 % (24-48); % MONOS 6 % (0-10); % SEGS 89 % (35-66); NUCLEATED RBC 8
[2019-08-28 07:44] LABS: ANISOCYTOSIS SLIGHT; PLT ESTIMATE ADEQUATE (ADEQUATE)
[2019-08-28 07:45] VITALS: BP 108/44
[2019-08-28] MEDS: IV DEXTROSE 10% 1,000 ML IV SCH ×2 (07:45→20:03)
[2019-08-28] MEDS ORDERED: SODIUM BICARB ADULT 8.4% 50 MEQ/50 ML DISP.SYRIN. IV ONE (07:45)
[2019-08-28] MEDS: ASPIRIN ENTERIC COATED 81 MG TABLET.DR. PO SCH (09:31)
[2019-08-28] MEDS: METOPROLOL TART IMMED RELEASE 25 MG TABLET. PO SCH ×2 (09:31→20:02)
[2019-08-28] MEDS: FUROSEMIDE 40 MG/4 ML VIAL. IVP SCH ×2 (09:31→15:32)
[2019-08-28 11:58] VITALS: BP 102/52
--- NOTE | 2019-08-28 12:49 | CONS ---
DATE OF CONSULTATION: 08/28/2019 I was asked to see this 64-year-old lady for [id number] respiratory failure. She is a poor historian. She has a history of smoking, quit smoking few years ago. She has chronic respiratory failure, is on oxygen 2 liters per minute via nasal cannula. She was at the hospital end of June for [id number] respiratory failure. Apparently, she was sent home the day before yesterday from the rehab center and she was brought to the Emergency Room by her daughter due to fall, lower extremity edema. She states that she does have some shortness of breath. She denies cough more than usual. She denies fever or chills. She is tired. PAST MEDICAL HISTORY: CHF, diastolic and systolic dysfunction, COPD, chronic respiratory failure, cardiomyopathy, coronary artery disease, history of multiple admissions, gastroesophageal reflux disease, hypercholesterolemia. SOCIAL HISTORY: Positive for smoking. FAMILY HISTORY: Hypertension. ALLERGIES: PENICILLINS. MEDICATIONS: Currently, she is on aspirin, Pulmicort, Lasix 40 mg IV b.i.d., DuoNeb, levothyroxine. REVIEW OF SYSTEMS: As mentioned as above, other systems otherwise negative. PHYSICAL EXAMINATION: GENERAL: Chronically ill-appearing lady. VITAL SIGNS: Her O2 saturation on 3 liters of oxygen 98%, respiratory rate 18, heart rate 57, blood pressure 102/52, temperature 97.8. HEENT: Normocephalic, atraumatic. Pupils equal, round, reactive to light. Throat is clear. Nose is clear. NECK: Positive JVD. No lymphadenopathy or thyromegaly. CARDIOVASCULAR: Regular rate and rhythm. PMI is nondisplaced. CHEST: Inspection is normal. LUNGS: There are bibasilar crackles, dullness at the bases. ABDOMEN: Soft. Bowel sounds are good. There is no mass. EXTREMITIES: There is edema. LYMPHATICS: There is no lymphadenopathy. NEUROLOGIC: Alert. SKIN: Chronic changes. LABORATORY DATA: I reviewed the following lab data: Chest x-ray shows bilateral infiltrate, bilateral pleural effusion, right more than left. Pleural effusion is slightly less than previous chest x-ray. WBC 11, hemoglobin 9.5, platelets 178. Sodium 132, potassium 4.8, chloride 91, CO2 of 24, glucose 74, BUN 99, creatinine 4.1. Creatinine on 08/05 was 2.2. BNP 32,816. Troponin less than 0.03. IMPRESSION: 1. Acute on chronic respiratory failure, multifactorial in etiology, acute systolic/diastolic congestive heart failure, chronic obstructive pulmonary disease with acute exacerbation, volume overload secondary to acute kidney injury. 2. Abnormal chest x-ray. 3. Acute systolic and diastolic congestive heart failure. 4. Acute exacerbation of chronic obstructive pulmonary disease. 5. Acute kidney injury. 6. Chronic kidney disease. 7. Cardiomyopathy. 8. Paroxysmal atrial fibrillation. PLAN AND RECOMMENDATIONS: 1. Titrate FiO2 to keep O2 saturation 92%. 2. Bronchodilator. 3. Inhaled corticosteroid. 4. Agree with diuretics. Monitor potassium and creatinine very closely. 5. We will monitor her pleural effusion. may need a thoracentesis, although her pleural effusion looks slightly less than previous chest x-ray. 6. Cardiology is consulted. They held amiodarone and Eliquis. 7. The findings and recommendations were discussed with the patient and RN. Thank you very much for allowing me to participate in care of this very nice lady. LILLIAM HARRIS M.D. DR: MARQUITA/carlie JOB#: [id number] / [id number] MARCO ANTONIO
--- NOTE | 2019-08-28 14:22 | PDOC ---
SUBJECTIVE ROS Opens her eyes , denies any N/V Refuses for Dialysis ? baseline MS fluctuating per RN OBJECTIVE Vital Signs Vital Signs Date Time Temp Pulse Resp B/P (MAP) Pulse Ox O2 Delivery O2 Flow Rate FiO2 08/28/19 11:58 97.8 57 18 102/52 (69) 98 Nasal Cannula 3.0 97.8 I & 0 Intake and Output 08/28/19 06:59 Intake Total 250 ml Output Total 125 ml Balance 125 ml Intake Oral 250 ml Output Urine Total 125 ml # Voids 1 PHYSICAL EXAM Physical Exam GEN NAD HEENT: OM moist Neck supple LUNGS: diminished bases, non labored Heart: irregularly irregular (AFIB- rate controlled) Abdomen: Soft N/T Extremities: No LE edema Neurology: alert, oriented, follow commands No alex Skin No rash DIAGNOSIS/ASSESSMENT Assessment & Plan NEGRITO-ATN , multiple Hospitalizations Per Dr. Carter's initial Eval Pt is not a candidate for HD Currently asymptomatic, No labs this am was on IV Diuretics, dced , supportive care, avoid nephrotoxins Pt refusing to be on HD, eval for decision making capacity- per Primary CKD stage 3- Cr 1.5 HyperKalemia - was on K supplements Acute on Chronic CHF - currently compensated Ac Resp failure- stable, On RA Anemia - ?Drop in Hgb Severe Dementia per Dr. Carter's Note Per RN fluctuating MS, In the past Pt has been Hospice /DNR, Per RN Daughter brings her to the hosp if any change in clinical status PAROXYSMAL AFIB- Per Card COMMENT/RELEVANT DATA Meds Current Medications Medications (Trade) Dose Ordered Sig/Karen Start Time Stop Time Status Last Admin Dose Admin Albuterol Sulfate (Ventolin Neb Soln) 2.5 mg PRN Q4HRS PRN 08/27/19 10:15 Albuterol/ Ipratropium (Duoneb) 3 ml RTQID 08/27/19 12:00 08/28/19 11:44 3 ML Amiodarone HCl (Cordarone) 200 mg DAILY 08/27/19 11:00 08/27/19 13:50 DC Apixaban (Eliquis) 2.5 mg BID 08/27/19 11:00 08/27/19 13:47 DC Aspirin (Ecotrin) 81 mg DAILYWBKFT 08/28/19 08:00 08/28/19 09:31 81 MG Benzonatate (Tessalon Perle) 100 mg TID 08/27/19 11:00 08/28/19 09:32 100 MG Budesonide (Pulmicort) 0.5 mg RTBID 08/27/19 20:00 08/28/19 07:34 0.5 MG Calcium Gluconate (Calcium Gluconate) 1,000 mg 1X ONCE 08/26/19 18:30 08/26/19 18:32 DC 08/26/19 18:58 1,000 MG Dextrose 1,000 ml @ 20 mls/hr Q24H ONCE 08/27/19 22:00 08/28/19 21:59 08/28/19 06:32 20 MLS/HR Dextrose (Dextrose 50%-Water Syringe) 12.5 gm PRN Q15MIN PRN 08/27/19 10:45 08/28/19 06:32 12.5 GM Fentanyl Citrate (Fentanyl 2ml Vial) 50 mcg PRN Q1HR PRN 08/26/19 19:00 08/27/19 18:59 DC Furosemide (Lasix) 40 mg BID92 08/27/19 14:00 08/28/19 14:01 DC 08/28/19 09:31 40 MG Insulin Human Regular (HumuLIN R VIAL) 10 unit 1X ONCE 08/26/19 18:30 08/26/19 18:32 DC 08/26/19 19:07 10 UNIT Lactobacillus Rhamnosus (Culturelle) 1 cap BID 08/27/19 21:00 08/28/19 09:31 1 CAP Levothyroxine Sodium (Synthroid) 100 mcg DAILY06 08/27/19 10:30 Metoprolol Tartrate (Lopressor) 25 mg BID 08/27/19 11:00 08/28/19 09:31 25 MG Nicotine (Nicoderm Cq 21mg) 1 patch PRN DAILY PRN 08/27/19 09:00 Ondansetron HCl (Zofran) 4 mg PRN Q4HRS PRN 08/27/19 10:15 Sodium Polystyrene Sulfonate (Kayexalate) 30 gm 1X ONCE 08/26/19 18:30 08/26/19 18:32 DC 08/26/19 22:02 30 GM Sodium Bicarbonate (Sodium Bicarb Adult 8.4% Syr) 50 meq 1X ONCE 08/28/19 07:45 08/28/19 07:46 DC 08/28/19 09:31 50 MEQ Lab Laboratory Tests Test 08/27/19 14:16 08/27/19 15:38 08/27/19 20:50 08/27/19 20:53 Glucose (Fingerstick) 246 mg/dL (70-99) 234 mg/dL (70-99) 39 mg/dL (70-99) 24 mg/dL (70-99) Test 08/27/19 21:00 08/27/19 21:15 08/27/19 21:30 08/27/19 23:30 Glucose Level 667 mg/dL (70-99) 158 mg/dL (70-99) Glucose (Fingerstick) 27 mg/dL (70-99) 367 mg/dL (70-99) 168 mg/dL (70-99) Test 08/28/19 04:35 08/28/19 06:46 08/28/19 07:59 08/28/19 09:00 White Blood Count 11.0 x10^3/uL (4.0-11.0) Red Blood Count 3.06 x10^6/uL (3.50-5.40) Hemoglobin 9.5 g/dL (12.0-15.5) Hematocrit 29.5 % (36.0-47.0) Mean Corpuscular Volume 97 fL (79-100) Mean Corpuscular Hemoglobin 31 pg (25-35) Mean Corpuscular Hemoglobin Concent 32 g/dL (31-37) Red Cell Distribution Width 17.9 % (11.5-14.5) Platelet Count 178 x10^3/uL (140-400) Neutrophils (%) (Auto) 89 % (31-73) Lymphocytes (%) (Auto) 6 % (24-48) Monocytes (%) (Auto) 5 % (0-9) Eosinophils (%) (Auto) 0 % (0-3) Basophils (%) (Auto) 0 % (0-3) Neutrophils # (Auto) 9.7 x10^3/uL (1.8-7.7) Lymphocytes # (Auto) 0.7 x10^3/uL (1.0-4.8) Monocytes # (Auto) 0.5 x10^3/uL (0.0-1.1) Eosinophils # (Auto) 0.0 x10^3/uL (0.0-0.7) Basophils # (Auto) 0.0 x10^3/uL (0.0-0.2) Segmented Neutrophils % 89 % (35-66) Band Neutrophils % 1 % (0-9) Lymphocytes % 4 % (24-48) Monocytes % 6 % (0-10) Nucleated Red Blood Cells 8 Platelet Estimate Adequate (ADEQUATE) Anisocytosis Slight Sodium Level 132 mmol/L (136-145) Potassium Level 4.8 mmol/L (3.5-5.1) Chloride Level 91 mmol/L (98-107) Carbon Dioxide Level 24 mmol/L (21-32) Anion Gap 17 (6-14) Blood Urea Nitrogen 99 mg/dL (7-20) Creatinine 4.1 mg/dL (0.6-1.0) Estimated GFR (Cockcroft-Gault) 13.3 Glucose Level 60 mg/dL (70-99) 74 mg/dL (70-99) Calcium Level 9.0 mg/dL (8.5-10.1) Magnesium Level 2.5 mg/dL (1.8-2.4) Glucose (Fingerstick) 68 mg/dL (70-99) 68 mg/dL (70-99) Test 08/28/19 10:58 Glucose (Fingerstick) 81 mg/dL (70-99) Results All relevant outside records, renal labs, imaging studies, telemetry/EKG's were reviewed. ALTAGRACIA BLANTON MD August 28, 2019 14:22
[2019-08-28 15:41] VITALS: BP 106/56
[2019-08-28 19:47] VITALS: BP 120/54
[2019-08-28 23:33] VITALS: BP_SYST 115; BP_DIAS 40; BP_DIAS 54
[2019-08-29 03:00] VITALS: BP 108/47
[2019-08-29] MEDS: IV DEXTROSE 10% 1,000 ML IV SCH ×3 (03:45→21:07)
[2019-08-29] MEDS: LEVOTHYROXINE 100 MCG TABLET PO SCH (05:01)
[2019-08-29 07:00] VITALS: BP 143/50
[2019-08-29] MEDS: BUDESONIDE 0.5 MG/2 ML NEBU. NEB SCH ×2 (07:17→20:15)
[2019-08-29] MEDS: IPRATRPIUM/ALBUTEROL 0.5/2.5MG 3 ML NEBU. NEB SCH ×4 (07:17→20:15)
[2019-08-29 08:41] LABS: BASO % 0 % (0-3); EOS % 0 % (0-3); HEMATOCRIT 28.6 % (36.0-47.0); HEMOGLOBIN 9.5 g/dL (12.0-15.5); LYMPH % 13 % (24-48); MEAN CORPUSCULAR HEMOGLOBIN 31 pg (25-35); MEAN CORPUSCULAR HGB CONC 33 g/dL (31-37); MEAN CORPUSCULAR VOLUME 95 fL (79-100); MONO # 0.4 x10^3/uL (0.0-1.1); MONO % 6 % (0-9); NEUT # 5.8 x10^3/uL (1.8-7.7); NEUT % 80 % (31-73); PLATELET COUNT 151 x10^3/uL (140-400); RED BLOOD COUNT 3.03 x10^6/uL (3.50-5.40); RED CELL DISTRIBUTION WIDTH 17.6 % (11.5-14.5); WHITE BLOOD COUNT 7.2 x10^3/uL (4.0-11.0)
[2019-08-29 08:59] LABS: ALBUMIN 2.9 g/dL (3.4-5.0); ALBUMIN/GLOBULIN RATIO 0.9 (1.0-1.7); CALCIUM 8.2 mg/dL (8.5-10.1); CREATININE 3.5 mg/dL (0.6-1.0); GFR 15.9; TOTAL BILIRUBIN 0.8 mg/dL (0.2-1.0); TOTAL PROTEIN 6.2 g/dL (6.4-8.2)
[2019-08-29] MEDS: METOPROLOL TART IMMED RELEASE 25 MG TABLET. PO SCH ×2 (09:00→21:07)
[2019-08-29] MEDS: ASPIRIN ENTERIC COATED 81 MG TABLET.DR. PO SCH (09:22)
[2019-08-29] MEDS: LACTOBACILLUS RHAMNOSUS GG 1 CAPSULE. PO SCH ×2 (09:22→20:21)
[2019-08-29] MEDS: BENZONATATE 100 MG CAPSULE. PO SCH ×3 (09:22→20:21)
[2019-08-29 11:30] VITALS: BP 127/55
--- NOTE | 2019-08-29 11:48 | PDOC ---
PROGRESS NOTES Chief Complaint Chief Complaint A/P: Hyperkalemia - given calcium gluconate, kayexelate, lasix Acute systolic and diastolic heart failure - given IV lasix initially, will discontinue Hypothermia - improved with warming blanket Hypoglycemia - no DM2 history. TSH pending Acute kidney injury - on CKD - likely vasomotor nephropathy vs cardiorenal syndrome. She and her daughter refuse dialysis, this is appropriate given her chronic conditions Acute hypoxic respiratory failure, multifactorial - CHF, COPD, Acute chronic obstructive pulmonary disease exacerbation. Paroxysmal atrial flutter/fibrillation. Hypothyroidism acquired status post thyroidectomy. Anemia. CAD Dementia - likely vascular with prior TIAs GERD Hyperlipidemia Hypertension Macrocytosis - UTIs Chronic pain Previous tobacco abuse. Moderate aortic regurgitation FEN - Cardiac diet, D10 PPX - eliquis FULL CODE Dispo - inpatient 2 midnights History of Present Illness History of Present Illness Ms Levin is a 64 yo F w/ PMHx COPD, severe cardiomyopathy, CHF EF 40-45%, coronary artery disease, HLD, GERD, paroxysmal afib, ex-smoker who was brought to ED from home where she lives with her daughter by EMS in respiratory distress with swelling and chest discomfort, She was discharged earlier this year to SNF and was on the ventilator earlier this year. Last hospital stay she was discharged home with home health. recently here on 08/02/2019 for heart failure and hypoxia. Her COVID test at that time was negative She had not felt well for the past few days. She does have cough with some sputum production. Elevated potassium of 6.3 and a BUN of 91 and a creatinine of 3.5. Have contacted her daughter Hallie, and she is made it clear that her mother is requested not to be back on a ventilator. [facility] has asked that we give her "1 more time" if she has cardiac or respiratory arrest. She notes the reason she revoked hospice as she was not comfortable with her mother receiving morphine for pain and for shortness of breath and felt like it was slowly killing her. Consults: Cardiology, Pulmonary and Nephrology. 08/26: Glucose of 15. D50 given x1 ampule with increase to 63, but now persistently low, will change to D10 infusion 08/27: Overnight was transferred to ICU on D10 GTT, glucose came up into the 600s was transferred back to [facility] telemetry. Temp 93 F overnight. Care order placed and D10 continued glucose 60 this morning BUN 99. Creatinine 4.1. More alert today, no complaints. Temp normalized. Glucose in 140s. BUN 90, Cr 3.5. Na 130, K 3. AST and ALT now in 100s. UOP 1250 yesterday, stopped lasix. More alert today. Vitals Vitals Vital Signs Date Time Temp Pulse Resp B/P (MAP) Pulse Ox O2 Delivery O2 Flow Rate FiO2 08/29/19 11:20 Nasal Cannula 2.0 08/29/19 09:00 57 143/50 08/29/19 07:20 100 08/29/19 07:00 97.9 97.9 08/29/19 03:00 16 Physical Exam General: Alert, Cooperative, No acute distress Heart: Regular rate (SB 40s), Other (distant heart sounds) Lungs: Wheezing, Crackles, Other Abdomen: Soft, Other (anasarca) Extremities: Other (anasarca) Skin: No breakdown Labs LABS Laboratory Tests Test 08/28/19 16:44 08/28/19 20:02 08/29/19 02:10 08/29/19 07:39 Glucose (Fingerstick) 111 mg/dL (70-99) 78 mg/dL (70-99) 110 mg/dL (70-99) 151 mg/dL (70-99) Test 08/29/19 08:20 White Blood Count 7.2 x10^3/uL (4.0-11.0) Red Blood Count 3.03 x10^6/uL (3.50-5.40) Hemoglobin 9.5 g/dL (12.0-15.5) Hematocrit 28.6 % (36.0-47.0) Mean Corpuscular Volume 95 fL (79-100) Mean Corpuscular Hemoglobin 31 pg (25-35) Mean Corpuscular Hemoglobin Concent 33 g/dL (31-37) Red Cell Distribution Width 17.6 % (11.5-14.5) Platelet Count 151 x10^3/uL (140-400) Neutrophils (%) (Auto) 80 % (31-73) Lymphocytes (%) (Auto) 13 % (24-48) Monocytes (%) (Auto) 6 % (0-9) Eosinophils (%) (Auto) 0 % (0-3) Basophils (%) (Auto) 0 % (0-3) Neutrophils # (Auto) 5.8 x10^3/uL (1.8-7.7) Lymphocytes # (Auto) 1.0 x10^3/uL (1.0-4.8) Monocytes # (Auto) 0.4 x10^3/uL (0.0-1.1) Eosinophils # (Auto) 0.0 x10^3/uL (0.0-0.7) Basophils # (Auto) 0.0 x10^3/uL (0.0-0.2) Sodium Level 130 mmol/L (136-145) Potassium Level 3.0 mmol/L (3.5-5.1) Chloride Level 88 mmol/L (98-107) Carbon Dioxide Level 31 mmol/L (21-32) Anion Gap 11 (6-14) Blood Urea Nitrogen 90 mg/dL (7-20) Creatinine 3.5 mg/dL (0.6-1.0) Estimated GFR (Cockcroft-Gault) 15.9 BUN/Creatinine Ratio 26 (6-20) Glucose Level 102 mg/dL (70-99) Calcium Level 8.2 mg/dL (8.5-10.1) Total Bilirubin 0.8 mg/dL (0.2-1.0) Aspartate Amino Transf (AST/SGOT) 132 U/L (15-37) Alanine Aminotransferase (ALT/SGPT) 155 U/L (14-59) Alkaline Phosphatase 111 U/L (46-116) Total Protein 6.2 g/dL (6.4-8.2) Albumin 2.9 g/dL (3.4-5.0) Albumin/Globulin Ratio 0.9 (1.0-1.7) Assessment and Plan Assessmemt and Plan Problems Medical Problems: (1) CHF exacerbation Status: Acute (2) Hyperkalemia Status: Acute Comment Review of Relevant I have reviewed the following items suad (where applicable) has been applied. Labs Laboratory Tests Test 08/27/19 12:00 08/27/19 12:32 08/27/19 12:56 08/27/19 13:36 Glucose Level 296 mg/dL (70-99) Glucose (Fingerstick) 230 mg/dL (70-99) 164 mg/dL (70-99) 176 mg/dL (70-99) Test 08/27/19 14:16 08/27/19 15:38 08/27/19 20:50 08/27/19 20:53 Glucose (Fingerstick) 246 mg/dL (70-99) 234 mg/dL (70-99) 39 mg/dL (70-99) 24 mg/dL (70-99) Test 08/27/19 21:00 08/27/19 21:15 08/27/19 21:30 08/27/19 23:30 Glucose Level 667 mg/dL (70-99) 158 mg/dL (70-99) Glucose (Fingerstick) 27 mg/dL (70-99) 367 mg/dL (70-99) 168 mg/dL (70-99) Test 08/28/19 04:35 08/28/19 06:46 08/28/19 07:59 08/28/19 09:00 White Blood Count 11.0 x10^3/uL (4.0-11.0) Red Blood Count 3.06 x10^6/uL (3.50-5.40) Hemoglobin 9.5 g/dL (12.0-15.5) Hematocrit 29.5 % (36.0-47.0) Mean Corpuscular Volume 97 fL (79-100) Mean Corpuscular Hemoglobin 31 pg (25-35) Mean Corpuscular Hemoglobin Concent 32 g/dL (31-37) Red Cell Distribution Width 17.9 % (11.5-14.5) Platelet Count 178 x10^3/uL (140-400) Neutrophils (%) (Auto) 89 % (31-73) Lymphocytes (%) (Auto) 6 % (24-48) Monocytes (%) (Auto) 5 % (0-9) Eosinophils (%) (Auto) 0 % (0-3) Basophils (%) (Auto) 0 % (0-3) Neutrophils # (Auto) 9.7 x10^3/uL (1.8-7.7) Lymphocytes # (Auto) 0.7 x10^3/uL (1.0-4.8) Monocytes # (Auto) 0.5 x10^3/uL (0.0-1.1) Eosinophils # (Auto) 0.0 x10^3/uL (0.0-0.7) Basophils # (Auto) 0.0 x10^3/uL (0.0-0.2) Segmented Neutrophils % 89 % (35-66) Band Neutrophils % 1 % (0-9) Lymphocytes % 4 % (24-48) Monocytes % 6 % (0-10) Nucleated Red Blood Cells 8 Platelet Estimate Adequate (ADEQUATE) Anisocytosis Slight Sodium Level 132 mmol/L (136-145) Potassium Level 4.8 mmol/L (3.5-5.1) Chloride Level 91 mmol/L (98-107) Carbon Dioxide Level 24 mmol/L (21-32) Anion Gap 17 (6-14) Blood Urea Nitrogen 99 mg/dL (7-20) Creatinine 4.1 mg/dL (0.6-1.0) Estimated GFR (Cockcroft-Gault) 13.3 Glucose Level 60 mg/dL (70-99) 74 mg/dL (70-99) Calcium Level 9.0 mg/dL (8.5-10.1) Magnesium Level 2.5 mg/dL (1.8-2.4) Glucose (Fingerstick) 68 mg/dL (70-99) 68 mg/dL (70-99) Test 08/28/19 10:58 08/28/19 16:44 08/28/19 20:02 08/29/19 02:10 Glucose (Fingerstick) 81 mg/dL (70-99) 111 mg/dL (70-99) 78 mg/dL (70-99) 110 mg/dL (70-99) Test 08/29/19 07:39 08/29/19 08:20 Glucose (Fingerstick) 151 mg/dL (70-99) White Blood Count 7.2 x10^3/uL (4.0-11.0) Red Blood Count 3.03 x10^6/uL (3.50-5.40) Hemoglobin 9.5 g/dL (12.0-15.5) Hematocrit 28.6 % (36.0-47.0) Mean Corpuscular Volume 95 fL (79-100) Mean Corpuscular Hemoglobin 31 pg (25-35) Mean Corpuscular Hemoglobin Concent 33 g/dL (31-37) Red Cell Distribution Width 17.6 % (11.5-14.5) Platelet Count 151 x10^3/uL (140-400) Neutrophils (%) (Auto) 80 % (31-73) Lymphocytes (%) (Auto) 13 % (24-48) Monocytes (%) (Auto) 6 % (0-9) Eosinophils (%) (Auto) 0 % (0-3) Basophils (%) (Auto) 0 % (0-3) Neutrophils # (Auto) 5.8 x10^3/uL (1.8-7.7) Lymphocytes # (Auto) 1.0 x10^3/uL (1.0-4.8) Monocytes # (Auto) 0.4 x10^3/uL (0.0-1.1) Eosinophils # (Auto) 0.0 x10^3/uL (0.0-0.7) Basophils # (Auto) 0.0 x10^3/uL (0.0-0.2) Sodium Level 130 mmol/L (136-145) Potassium Level 3.0 mmol/L (3.5-5.1) Chloride Level 88 mmol/L (98-107) Carbon Dioxide Level 31 mmol/L (21-32) Anion Gap 11 (6-14) Blood Urea Nitrogen 90 mg/dL (7-20) Creatinine 3.5 mg/dL (0.6-1.0) Estimated GFR (Cockcroft-Gault) 15.9 BUN/Creatinine Ratio 26 (6-20) Glucose Level 102 mg/dL (70-99) Calcium Level 8.2 mg/dL (8.5-10.1) Total Bilirubin 0.8 mg/dL (0.2-1.0) Aspartate Amino Transf (AST/SGOT) 132 U/L (15-37) Alanine Aminotransferase (ALT/SGPT) 155 U/L (14-59) Alkaline Phosphatase 111 U/L (46-116) Total Protein 6.2 g/dL (6.4-8.2) Albumin 2.9 g/dL (3.4-5.0) Albumin/Globulin Ratio 0.9 (1.0-1.7) Laboratory Tests Test 08/28/19 16:44 08/28/19 20:02 08/29/19 02:10 08/29/19 07:39 Glucose (Fingerstick) 111 mg/dL (70-99) 78 mg/dL (70-99) 110 mg/dL (70-99) 151 mg/dL (70-99) Test 08/29/19 08:20 White Blood Count 7.2 x10^3/uL (4.0-11.0) Red Blood Count 3.03 x10^6/uL (3.50-5.40) Hemoglobin 9.5 g/dL (12.0-15.5) Hematocrit 28.6 % (36.0-47.0) Mean Corpuscular Volume 95 fL (79-100) Mean Corpuscular Hemoglobin 31 pg (25-35) Mean Corpuscular Hemoglobin Concent 33 g/dL (31-37) Red Cell Distribution Width 17.6 % (11.5-14.5) Platelet Count 151 x10^3/uL (140-400) Neutrophils (%) (Auto) 80 % (31-73) Lymphocytes (%) (Auto) 13 % (24-48) Monocytes (%) (Auto) 6 % (0-9) Eosinophils (%) (Auto) 0 % (0-3) Basophils (%) (Auto) 0 % (0-3) Neutrophils # (Auto) 5.8 x10^3/uL (1.8-7.7) Lymphocytes # (Auto) 1.0 x10^3/uL (1.0-4.8) Monocytes # (Auto) 0.4 x10^3/uL (0.0-1.1) Eosinophils # (Auto) 0.0 x10^3/uL (0.0-0.7) Basophils # (Auto) 0.0 x10^3/uL (0.0-0.2) Sodium Level 130 mmol/L (136-145) Potassium Level 3.0 mmol/L (3.5-5.1) Chloride Level 88 mmol/L (98-107) Carbon Dioxide Level 31 mmol/L (21-32) Anion Gap 11 (6-14) Blood Urea Nitrogen 90 mg/dL (7-20) Creatinine 3.5 mg/dL (0.6-1.0) Estimated GFR (Cockcroft-Gault) 15.9 BUN/Creatinine Ratio 26 (6-20) Glucose Level 102 mg/dL (70-99) Calcium Level 8.2 mg/dL (8.5-10.1) Total Bilirubin 0.8 mg/dL (0.2-1.0) Aspartate Amino Transf (AST/SGOT) 132 U/L (15-37) Alanine Aminotransferase (ALT/SGPT) 155 U/L (14-59) Alkaline Phosphatase 111 U/L (46-116) Total Protein 6.2 g/dL (6.4-8.2) Albumin 2.9 g/dL (3.4-5.0) Albumin/Globulin Ratio 0.9 (1.0-1.7) Medications Current Medications Calcium Gluconate (Calcium Gluconate) 1,000 mg 1X ONCE IVP Last administered on 08/26/19at 18:58; Start 08/26/19 at 18:30; Stop 08/26/19 at 18:32; Status DC Sodium Bicarbonate (Sodium Bicarb Adult 8.4% Syr) 50 meq 1X ONCE IV Last administered on 08/26/19at 19:08; Start 08/26/19 at 18:30; Stop 08/26/19 at 18:32; Status DC Dextrose (Dextrose 50%-Water Syringe) 25 gm 1X ONCE IV Last administered on 08/26/19at 19:01; Start 08/26/19 at 18:30; Stop 08/26/19 at 18:32; Status DC Insulin Human Regular (HumuLIN R VIAL) 10 unit 1X ONCE IV Last administered on 08/26/19at 19:07; Start 08/26/19 at 18:30; Stop 08/26/19 at 18:32; Status DC Sodium Polystyrene Sulfonate (Kayexalate) 30 gm 1X ONCE PO Last administered on 08/26/19at 22:02; Start 08/26/19 at 18:30; Stop 08/26/19 at 18:32; Status DC Furosemide (Lasix) 80 mg 1X ONCE IVP Last administered on 08/26/19at 19:10; Start 08/26/19 at 18:45; Stop 08/26/19 at 18:48; Status DC Fentanyl Citrate (Fentanyl 2ml Vial) 50 mcg 1X ONCE IVP Last administered on 08/26/19at 18:57; Start 08/26/19 at 19:00; Stop 08/26/19 at 19:01; Status DC Ondansetron HCl (Zofran) 4 mg PRN Q8HRS PRN IV NAUSEA/VOMITING; Start 08/26/19 at 19:00; Stop 08/27/19 at 10:15; Status DC Fentanyl Citrate (Fentanyl 2ml Vial) 50 mcg PRN Q1HR PRN IV PAIN; Start 08/26/19 at 19:00; Stop 08/27/19 at 18:59; Status DC Dextrose (Dextrose 50%-Water Syringe) 25 gm 1X ONCE IV ; Start 08/26/19 at 22:30; Stop 08/26/19 at 22:31; Status DC Ondansetron HCl (Zofran) 4 mg PRN Q4HRS PRN IV NAUSEA/VOMITING; Start 08/27/19 at 10:15 Albuterol Sulfate (Ventolin Neb Soln) 2.5 mg PRN Q4HRS PRN NEB SHORTNESS OF BREATH; Start 08/27/19 at 10:15 Amiodarone HCl (Cordarone) 200 mg DAILY PO ; Start 08/27/19 at 11:00; Stop 08/27/19 at 13:50; Status DC Apixaban (Eliquis) 2.5 mg BID PO ; Start 08/27/19 at 11:00; Stop 08/27/19 at 13:47; Status DC Benzonatate (Tessalon Perle) 100 mg TID PO Last administered on 08/29/19at 09:22; Start 08/27/19 at 11:00 Budesonide (Pulmicort) 0.5 mg RTBID NEB Last administered on 08/29/19at 07:17; Start 08/27/19 at 20:00 Albuterol/ Ipratropium (Duoneb) 3 ml RTQID NEB Last administered on 08/29/19at 11:19; Start 08/27/19 at 12:00 Lactobacillus Rhamnosus (Culturelle) 1 cap BID PO Last administered on 08/29/19at 09:22; Start 08/27/19 at 21:00 Levothyroxine Sodium (Synthroid) 100 mcg DAILY06 PO Last administered on 08/29/19at 05:01; Start 08/27/19 at 10:30 Metoprolol Tartrate (Lopressor) 25 mg BID PO Last administered on 08/28/19at 09:31; Start 08/27/19 at 11:00 Nicotine (Nicoderm Cq 21mg) 1 patch PRN DAILY PRN TD SMOKING CESSATION; Start 08/27/19 at 09:00 Furosemide (Lasix) 40 mg BID92 IVP Last administered on 08/28/19at 15:32; Start 08/27/19 at 14:00; Stop 08/28/19 at 14:01; Status DC Dextrose (Dextrose 50%-Water Syringe) 25 gm STK-MED ONCE IV ; Start 08/27/19 at 10:18; Stop 08/27/19 at 10:18; Status DC Dextrose (Dextrose 50%-Water Syringe) 25 gm STK-MED ONCE IV ; Start 08/27/19 at 10:25; Stop 08/27/19 at 10:26; Status DC Dextrose (Dextrose 50%-Water Syringe) 12.5 gm PRN Q15MIN PRN IV SEE COMMENTS Last administered on 08/28/19at 06:32; Start 08/27/19 at 10:45 Dextrose 500 ml @ 50 mls/hr 1X ONCE IV ; Start 08/27/19 at 10:45; Stop 08/26 at 11:03; Status DC Dextrose 500 ml @ 75 mls/hr Q6H40M IV ; Start 08/27/19 at 10:45; Stop 08/27/19 at 11:03; Status DC Dextrose 1,000 ml @ 100 mls/hr Q10H IV ; Start 08/27/19 at 11:15; Stop 08/27/19 at 18:06; Status DC Aspirin (Ecotrin) 81 mg DAILYWBKFT PO Last administered on 08/29/19at 09:22; Start 08/28/19 at 08:00 Dextrose 1,000 ml @ 100 mls/hr Q10H IV Last administered on 08/29/19at 09:20; Start 08/27/19 at 21:45 Dextrose 1,000 ml @ 20 mls/hr Q24H ONCE IV Last administered on 08/28/19at 06:3 2; Start 08/27/19 at 22:00; Stop 08/28/19 at 21:59; Status DC Sodium Bicarbonate (Sodium Bicarb Adult 8.4% Syr) 50 meq 1X ONCE IV Last administered on 08/28/19at 09:31; Start 08/28/19 at 07:45; Stop 08/28/19 at 07:46; Status DC Active Scripts Active Lasix (Furosemide) 40 Mg Tablet 1 Tab PO DAILY 30 Days Culturelle (Lactobacillus Rhamnosus Gg) 1 Each Cap.sprink 1 Cap PO BID 30 Days Budesonide 0.5 Mg/2 Ml Ampul.neb 0.5 Mg NEB RTBID 30 Days Amiodarone Hcl 200 Mg Tablet 200 Mg PO DAILY 30 Days Proair Hfa (Albuterol Sulfate) 8.5 Gm Hfa.aer.ad 2.5 Mg NEB PRN Q4HRS PRN 30 Days Duoneb 0.5-3(2.5) Mg/3 Ml (Albuterol/Ipratropium) 3 Ml Ampul.neb 3 Ml NEB RTQID 30 Days Eliquis (Apixaban) 2.5 Mg Tablet 2.5 Mg PO BID 60 Days Metoprolol Tartrate 25 Mg Tablet 25 Mg PO BID [Nicotine 21MG] 1 PATCH Patch 1 Patch TD PRN DAILY PRN MDD 1 Tessalon Perle (Benzonatate) 100 Mg Capsule 1 Cap PO TID Flonase Allergy Relief (Fluticasone Propionate) 9.9 Ml Garretson.susp 2 Sprays NS DAILY Reported Levothyroxine Sodium 100 Mcg Tablet 1 Tab PO DAILY Klor-Con M20 (Potassium Chloride) 20 Meq Tab.er.prt 20 Meq PO BID NEW PRESCRIPTIONS Vitals/I & O Vital Sign - Last 24 Hours 08/28/19 08/28/19 08/28/19 08/28/19 11:45 11:58 15:41 15:47 Temp 97.8 97.6 97.8 97.6 Pulse 57 52 Resp 18 16 B/P (MAP) 102/52 (69) 106/56 (73) Pulse Ox 99 98 96 O2 Delivery Nasal Cannula Nasal Cannula Nasal Cannula Nasal Cannula O2 Flow Rate 3.0 3.0 3.0 3.0 08/28/19 08/28/19 08/28/19 08/28/19 19:47 20:00 20:02 20:38 Temp 97.8 97.8 Pulse 57 57 Resp 16 B/P (MAP) 120/54 (76) 120/54 Pulse Ox 99 O2 Delivery Nasal Cannula Nasal Cannula Nasal Cannula O2 Flow Rate 3.0 3.0 3.0 08/28/19 08/29/19 08/29/19 08/29/19 23:33 03:00 07:00 07:20 Temp 97.8 97.9 97.9 97.8 97.9 97.9 Pulse 54 60 57 Resp 16 16 B/P (MAP) 115/40 (65) 108/47 (67) 143/50 (81) Pulse Ox 95 94 100 O2 Delivery Nasal Cannula Room Air Nasal Cannula Nasal Cannula O2 Flow Rate 3.0 3.0 2.0 08/29/19 08/29/19 08/29/19 08/29/19 07:20 08:00 09:00 11:20 Pulse 57 B/P (MAP) 143/50 Pulse Ox 100 O2 Delivery Nasal Cannula Nasal Cannula Nasal Cannula O2 Flow Rate 2.0 3.0 2.0 Intake and Output 08/28/19 08/28/19 08/29/19 15:00 23:00 07:00 Intake Total 100 ml 200 ml 900 ml Output Total 500 ml 750 ml Balance 100 ml -300 ml 150 ml NAKITA RODRIGUES MD August 29, 2019 11:48
--- NOTE | 2019-08-29 11:59 | PDOC ---
SUBJECTIVE ROS More alert per RN Falling asleep during my rounds Not sure about her Baseline MS OBJECTIVE Vital Signs Vital Signs Date Time Temp Pulse Resp B/P (MAP) Pulse Ox O2 Delivery O2 Flow Rate FiO2 08/29/19 11:20 Nasal Cannula 2.0 08/29/19 09:00 57 143/50 08/29/19 07:20 100 08/29/19 07:00 97.9 97.9 08/29/19 03:00 16 I & 0 Intake and Output 08/29/19 07:00 Intake Total 1200 ml Output Total 1250 ml Balance -50 ml Intake Oral 300 ml Other 900 ml Output Urine Total 1250 ml PHYSICAL EXAM Physical Exam GEN NAD HEENT: OM moist Neck supple LUNGS: diminished bases, non labored Heart: irregularly irregular (AFIB- rate controlled) Abdomen: Soft N/T Extremities: No LE edema Neurology: alert, oriented, follow commands No alex Skin No rash DIAGNOSIS/ASSESSMENT Assessment & Plan NEGRITO-ATN , multiple Hospitalizations Per Dr. Carter's initial Eval Pt is not a candidate for HD Currently asymptomatic, renal function improved some , eGFR still 15-16 was on IV Diuretics, dced , supportive care, avoid nephrotoxins ? Dementia / decision making capacity per Primary CKD stage 3- Cr 1.5 HyperKalemia - was on K supplements Acute on Chronic CHF - currently compensated Ac Resp failure- stable, On RA Anemia - ?Drop in Hgb Severe Dementia per Dr. Carter's Note PAROXYSMAL AFIB- Per Card COMMENT/RELEVANT DATA Meds Current Medications Medications (Trade) Dose Ordered Sig/Karen Start Time Stop Time Status Last Admin Dose Admin Albuterol Sulfate (Ventolin Neb Soln) 2.5 mg PRN Q4HRS PRN 08/27/19 10:15 Albuterol/ Ipratropium (Duoneb) 3 ml RTQID 08/27/19 12:00 08/29/19 11:19 3 ML Amiodarone HCl (Cordarone) 200 mg DAILY 08/27/19 11:00 08/27/19 13:50 DC Apixaban (Eliquis) 2.5 mg BID 08/27/19 11:00 08/27/19 13:47 DC Aspirin (Ecotrin) 81 mg DAILYWBKFT 08/28/19 08:00 08/29/19 09:22 81 MG Benzonatate (Tessalon Perle) 100 mg TID 08/27/19 11:00 08/29/19 09:22 100 MG Budesonide (Pulmicort) 0.5 mg RTBID 08/27/19 20:00 08/29/19 07:17 0.5 MG Calcium Gluconate (Calcium Gluconate) 1,000 mg 1X ONCE 08/26/19 18:30 08/26/19 18:32 DC 08/26/19 18:58 1,000 MG Dextrose 1,000 ml @ 20 mls/hr Q24H ONCE 08/27/19 22:00 08/28/19 21:59 DC 08/28/19 06:32 20 MLS/HR Dextrose (Dextrose 50%-Water Syringe) 12.5 gm PRN Q15MIN PRN 08/27/19 10:45 08/28/19 06:32 12.5 GM Fentanyl Citrate (Fentanyl 2ml Vial) 50 mcg PRN Q1HR PRN 08/26/19 19:00 08/27/19 18:59 DC Furosemide (Lasix) 40 mg BID92 08/27/19 14:00 08/28/19 14:01 DC 08/28/19 15:32 40 MG Insulin Human Regular (HumuLIN R VIAL) 10 unit 1X ONCE 08/26/19 18:30 08/26/19 18:32 DC 08/26/19 19:07 10 UNIT Lactobacillus Rhamnosus (Culturelle) 1 cap BID 08/27/19 21:00 08/29/19 09:22 1 CAP Levothyroxine Sodium (Synthroid) 100 mcg DAILY06 08/27/19 10:30 08/29/19 05:01 100 MCG Metoprolol Tartrate (Lopressor) 25 mg BID 08/27/19 11:00 08/28/19 09:31 25 MG Nicotine (Nicoderm Cq 21mg) 1 patch PRN DAILY PRN 08/27/19 09:00 Ondansetron HCl (Zofran) 4 mg PRN Q4HRS PRN 08/27/19 10:15 Sodium Polystyrene Sulfonate (Kayexalate) 30 gm 1X ONCE 08/26/19 18:30 08/26/19 18:32 DC 08/26/19 22:02 30 GM Sodium Bicarbonate (Sodium Bicarb Adult 8.4% Syr) 50 meq 1X ONCE 08/28/19 07:45 08/28/19 07:46 DC 08/28/19 09:31 50 MEQ Lab Laboratory Tests Test 08/28/19 16:44 08/28/19 20:02 08/29/19 02:10 08/29/19 07:39 Glucose (Fingerstick) 111 mg/dL (70-99) 78 mg/dL (70-99) 110 mg/dL (70-99) 151 mg/dL (70-99) Test 08/29/19 08:20 White Blood Count 7.2 x10^3/uL (4.0-11.0) Red Blood Count 3.03 x10^6/uL (3.50-5.40) Hemoglobin 9.5 g/dL (12.0-15.5) Hematocrit 28.6 % (36.0-47.0) Mean Corpuscular Volume 95 fL (79-100) Mean Corpuscular Hemoglobin 31 pg (25-35) Mean Corpuscular Hemoglobin Concent 33 g/dL (31-37) Red Cell Distribution Width 17.6 % (11.5-14.5) Platelet Count 151 x10^3/uL (140-400) Neutrophils (%) (Auto) 80 % (31-73) Lymphocytes (%) (Auto) 13 % (24-48) Monocytes (%) (Auto) 6 % (0-9) Eosinophils (%) (Auto) 0 % (0-3) Basophils (%) (Auto) 0 % (0-3) Neutrophils # (Auto) 5.8 x10^3/uL (1.8-7.7) Lymphocytes # (Auto) 1.0 x10^3/uL (1.0-4.8) Monocytes # (Auto) 0.4 x10^3/uL (0.0-1.1) Eosinophils # (Auto) 0.0 x10^3/uL (0.0-0.7) Basophils # (Auto) 0.0 x10^3/uL (0.0-0.2) Sodium Level 130 mmol/L (136-145) Potassium Level 3.0 mmol/L (3.5-5.1) Chloride Level 88 mmol/L (98-107) Carbon Dioxide Level 31 mmol/L (21-32) Anion Gap 11 (6-14) Blood Urea Nitrogen 90 mg/dL (7-20) Creatinine 3.5 mg/dL (0.6-1.0) Estimated GFR (Cockcroft-Gault) 15.9 BUN/Creatinine Ratio 26 (6-20) Glucose Level 102 mg/dL (70-99) Calcium Level 8.2 mg/dL (8.5-10.1) Total Bilirubin 0.8 mg/dL (0.2-1.0) Aspartate Amino Transf (AST/SGOT) 132 U/L (15-37) Alanine Aminotransferase (ALT/SGPT) 155 U/L (14-59) Alkaline Phosphatase 111 U/L (46-116) Total Protein 6.2 g/dL (6.4-8.2) Albumin 2.9 g/dL (3.4-5.0) Albumin/Globulin Ratio 0.9 (1.0-1.7) Results All relevant outside records, renal labs, imaging studies, telemetry/EKG's were reviewed. ALTAGRACIA BLANTON MD August 29, 2019 11:59
--- NOTE | 2019-08-29 12:50 | PDOC ---
PULMONARY PROGRESS NOTES Subjective on 02, sob better, has occ cough Vitals Vital Signs Date Time Temp Pulse Resp B/P (MAP) Pulse Ox O2 Delivery O2 Flow Rate FiO2 08/29/19 11:20 Nasal Cannula 2.0 08/29/19 09:00 57 143/50 08/29/19 07:20 100 08/29/19 07:00 97.9 97.9 08/29/19 03:00 16 ROS: No Nausea General: Alert, No acute distress Lungs: Wheezing, Crackles, Other Cardiovascular: S1, S2 Abdomen: Soft, Non-tender Neuro Exam: Alert Extremities: Other (edema) Skin: Warm Labs Laboratory Tests Test 08/27/19 12:56 08/27/19 13:36 08/27/19 14:16 08/27/19 15:38 Glucose (Fingerstick) 164 mg/dL (70-99) 176 mg/dL (70-99) 246 mg/dL (70-99) 234 mg/dL (70-99) Test 08/27/19 20:50 08/27/19 20:53 08/27/19 21:00 08/27/19 21:15 Glucose (Fingerstick) 39 mg/dL (70-99) 24 mg/dL (70-99) 27 mg/dL (70-99) Glucose Level 667 mg/dL (70-99) Test 08/27/19 21:30 08/27/19 23:30 08/28/19 04:35 08/28/19 06:46 Glucose (Fingerstick) 367 mg/dL (70-99) 168 mg/dL (70-99) 68 mg/dL (70-99) Glucose Level 158 mg/dL (70-99) 60 mg/dL (70-99) White Blood Count 11.0 x10^3/uL (4.0-11.0) Red Blood Count 3.06 x10^6/uL (3.50-5.40) Hemoglobin 9.5 g/dL (12.0-15.5) Hematocrit 29.5 % (36.0-47.0) Mean Corpuscular Volume 97 fL (79-100) Mean Corpuscular Hemoglobin 31 pg (25-35) Mean Corpuscular Hemoglobin Concent 32 g/dL (31-37) Red Cell Distribution Width 17.9 % (11.5-14.5) Platelet Count 178 x10^3/uL (140-400) Neutrophils (%) (Auto) 89 % (31-73) Lymphocytes (%) (Auto) 6 % (24-48) Monocytes (%) (Auto) 5 % (0-9) Eosinophils (%) (Auto) 0 % (0-3) Basophils (%) (Auto) 0 % (0-3) Neutrophils # (Auto) 9.7 x10^3/uL (1.8-7.7) Lymphocytes # (Auto) 0.7 x10^3/uL (1.0-4.8) Monocytes # (Auto) 0.5 x10^3/uL (0.0-1.1) Eosinophils # (Auto) 0.0 x10^3/uL (0.0-0.7) Basophils # (Auto) 0.0 x10^3/uL (0.0-0.2) Segmented Neutrophils % 89 % (35-66) Band Neutrophils % 1 % (0-9) Lymphocytes % 4 % (24-48) Monocytes % 6 % (0-10) Nucleated Red Blood Cells 8 Platelet Estimate Adequate (ADEQUATE) Anisocytosis Slight Sodium Level 132 mmol/L (136-145) Potassium Level 4.8 mmol/L (3.5-5.1) Chloride Level 91 mmol/L (98-107) Carbon Dioxide Level 24 mmol/L (21-32) Anion Gap 17 (6-14) Blood Urea Nitrogen 99 mg/dL (7-20) Creatinine 4.1 mg/dL (0.6-1.0) Estimated GFR (Cockcroft-Gault) 13.3 Calcium Level 9.0 mg/dL (8.5-10.1) Magnesium Level 2.5 mg/dL (1.8-2.4) Test 08/28/19 07:59 08/28/19 09:00 08/28/19 10:58 08/28/19 16:44 Glucose (Fingerstick) 68 mg/dL (70-99) 81 mg/dL (70-99) 111 mg/dL (70-99) Glucose Level 74 mg/dL (70-99) Test 08/28/19 20:02 08/29/19 02:10 08/29/19 07:39 08/29/19 08:20 Glucose (Fingerstick) 78 mg/dL (70-99) 110 mg/dL (70-99) 151 mg/dL (70-99) White Blood Count 7.2 x10^3/uL (4.0-11.0) Red Blood Count 3.03 x10^6/uL (3.50-5.40) Hemoglobin 9.5 g/dL (12.0-15.5) Hematocrit 28.6 % (36.0-47.0) Mean Corpuscular Volume 95 fL (79-100) Mean Corpuscular Hemoglobin 31 pg (25-35) Mean Corpuscular Hemoglobin Concent 33 g/dL (31-37) Red Cell Distribution Width 17.6 % (11.5-14.5) Platelet Count 151 x10^3/uL (140-400) Neutrophils (%) (Auto) 80 % (31-73) Lymphocytes (%) (Auto) 13 % (24-48) Monocytes (%) (Auto) 6 % (0-9) Eosinophils (%) (Auto) 0 % (0-3) Basophils (%) (Auto) 0 % (0-3) Neutrophils # (Auto) 5.8 x10^3/uL (1.8-7.7) Lymphocytes # (Auto) 1.0 x10^3/uL (1.0-4.8) Monocytes # (Auto) 0.4 x10^3/uL (0.0-1.1) Eosinophils # (Auto) 0.0 x10^3/uL (0.0-0.7) Basophils # (Auto) 0.0 x10^3/uL (0.0-0.2) Sodium Level 130 mmol/L (136-145) Potassium Level 3.0 mmol/L (3.5-5.1) Chloride Level 88 mmol/L (98-107) Carbon Dioxide Level 31 mmol/L (21-32) Anion Gap 11 (6-14) Blood Urea Nitrogen 90 mg/dL (7-20) Creatinine 3.5 mg/dL (0.6-1.0) Estimated GFR (Cockcroft-Gault) 15.9 BUN/Creatinine Ratio 26 (6-20) Glucose Level 102 mg/dL (70-99) Calcium Level 8.2 mg/dL (8.5-10.1) Total Bilirubin 0.8 mg/dL (0.2-1.0) Aspartate Amino Transf (AST/SGOT) 132 U/L (15-37) Alanine Aminotransferase (ALT/SGPT) 155 U/L (14-59) Alkaline Phosphatase 111 U/L (46-116) Total Protein 6.2 g/dL (6.4-8.2) Albumin 2.9 g/dL (3.4-5.0) Albumin/Globulin Ratio 0.9 (1.0-1.7) Thyroid Stimulating Hormone (TSH) 3.861 uIU/mL (0.358-3.74) Test 08/29/19 11:57 Glucose (Fingerstick) 73 mg/dL (70-99) Laboratory Tests Test 08/28/19 16:44 08/28/19 20:02 08/29/19 02:10 08/29/19 07:39 Glucose (Fingerstick) 111 mg/dL (70-99) 78 mg/dL (70-99) 110 mg/dL (70-99) 151 mg/dL (70-99) Test 08/29/19 08:20 08/29/19 11:57 White Blood Count 7.2 x10^3/uL (4.0-11.0) Red Blood Count 3.03 x10^6/uL (3.50-5.40) Hemoglobin 9.5 g/dL (12.0-15.5) Hematocrit 28.6 % (36.0-47.0) Mean Corpuscular Volume 95 fL (79-100) Mean Corpuscular Hemoglobin 31 pg (25-35) Mean Corpuscular Hemoglobin Concent 33 g/dL (31-37) Red Cell Distribution Width 17.6 % (11.5-14.5) Platelet Count 151 x10^3/uL (140-400) Neutrophils (%) (Auto) 80 % (31-73) Lymphocytes (%) (Auto) 13 % (24-48) Monocytes (%) (Auto) 6 % (0-9) Eosinophils (%) (Auto) 0 % (0-3) Basophils (%) (Auto) 0 % (0-3) Neutrophils # (Auto) 5.8 x10^3/uL (1.8-7.7) Lymphocytes # (Auto) 1.0 x10^3/uL (1.0-4.8) Monocytes # (Auto) 0.4 x10^3/uL (0.0-1.1) Eosinophils # (Auto) 0.0 x10^3/uL (0.0-0.7) Basophils # (Auto) 0.0 x10^3/uL (0.0-0.2) Sodium Level 130 mmol/L (136-145) Potassium Level 3.0 mmol/L (3.5-5.1) Chloride Level 88 mmol/L (98-107) Carbon Dioxide Level 31 mmol/L (21-32) Anion Gap 11 (6-14) Blood Urea Nitrogen 90 mg/dL (7-20) Creatinine 3.5 mg/dL (0.6-1.0) Estimated GFR (Cockcroft-Gault) 15.9 BUN/Creatinine Ratio 26 (6-20) Glucose Level 102 mg/dL (70-99) Calcium Level 8.2 mg/dL (8.5-10.1) Total Bilirubin 0.8 mg/dL (0.2-1.0) Aspartate Amino Transf (AST/SGOT) 132 U/L (15-37) Alanine Aminotransferase (ALT/SGPT) 155 U/L (14-59) Alkaline Phosphatase 111 U/L (46-116) Total Protein 6.2 g/dL (6.4-8.2) Albumin 2.9 g/dL (3.4-5.0) Albumin/Globulin Ratio 0.9 (1.0-1.7) Thyroid Stimulating Hormone (TSH) 3.861 uIU/mL (0.358-3.74) Glucose (Fingerstick) 73 mg/dL (70-99) Medications Active Scripts Medications Dose Route/Sig Max Daily Dose Days Date Category Dose Instructions Lasix (Furosemide) 40 Mg Tablet 1 Tab PO DAILY 30 08/07/19 Rx Culturelle (Lactobacillus Rhamnosus Gg) 1 Each Cap.sprink 1 Cap PO BID 30 08/07/19 Rx Levothyroxine Sodium 100 Mcg Tablet 1 Tab PO DAILY 07/25/19 Reported Budesonide 0.5 Mg/2 Ml Ampul.neb 0.5 Mg NEB RTBID 30 07/05/19 Rx Amiodarone Hcl 200 Mg Tablet 200 Mg PO DAILY 30 07/05/19 Rx Proair Hfa (Albuterol Sulfate) 8.5 Gm Hfa.aer.ad 2.5 Mg NEB PRN Q4HRS PRN 30 07/05/19 Rx Duoneb 0.5-3(2.5) Mg/3 Ml (Albuterol/Ipratropium) 3 Ml Ampul.neb 3 Ml NEB RTQID 30 07/05/19 Rx Klor-Con M20 (Potassium Chloride) 20 Meq Tab.er.prt 20 Meq PO BID 04/28/19 Reported NEW PRESCRIPTIONS Eliquis (Apixaban) 2.5 Mg Tablet 2.5 Mg PO BID 60 04/12/19 Rx Metoprolol Tartrate 25 Mg Tablet 25 Mg PO BID 02/13/19 Rx [Nicotine 21MG] 1 PATCH Patch 1 Patch TD PRN DAILY PRN MDD 1 07/25/18 Rx Tessalon Perle (Benzonatate) 100 Mg Capsule 1 Cap PO TID 06/14/18 Rx Flonase Allergy Relief (Fluticasone Propionate) 9.9 Ml [place].susp 2 Sprays NS DAILY 06/14/18 Rx Impression . IMPRESSION: 1. Acute on chronic respiratory failure, multifactorial in etiology, acute systolic/diastolic congestive heart failure, chronic obstructive pulmonary disease with acute exacerbation, volume overload secondary to acute kidney injury. 2. Abnormal chest x-ray. 3. Acute systolic and diastolic congestive heart failure. 4. Acute exacerbation of chronic obstructive pulmonary disease. 5. Acute kidney injury. 6. Chronic kidney disease. 7. Cardiomyopathy. 8. Paroxysmal atrial fibrillation. Plan . PLAN AND RECOMMENDATIONS: 1. Titrate FiO2 to keep O2 saturation 92%. 2. Bronchodilator. 3. Inhaled corticosteroid. 4. Agree with diuretics. on hold, cr down to 3.5, nephro following Monitor potassium and creatinine very closely. 5. We will monitor her pleural effusion. may need a thoracentesis, although her pleural effusion looks slightly less than previous chest x-ray. 6. Cardiology is consulted. They held amiodarone and Eliquis. 7. The findings and recommendations were discussed with the patient and RN. LILLIAM HARRIS MD August 29, 2019 12:50
[2019-08-29 15:00] VITALS: BP 99/69
[2019-08-29] MEDS ORDERED: DOCUSATE SODIUM 100 MG CAPSULE. PO PRN (15:00)
[2019-08-29] MEDS ORDERED: LACTULOSE 20 GM/30 ML SOLUTION. PO PRN (15:00)
[2019-08-29 19:48] VITALS: BP 118/37
[2019-08-29 23:35] VITALS: BP 130/72
[2019-08-30 03:29] VITALS: BP 117/85
[2019-08-30 05:06] LABS: CALCIUM 7.7 mg/dL (8.5-10.1); CREATININE 2.8 mg/dL (0.6-1.0); GFR 20.6
[2019-08-30 05:08] LABS: POTASSIUM 2.5 mmol/L (3.5-5.1)
[2019-08-30] MEDS: POTASSIUM CHLORIDE 10MEQ 100 ML IV SCH ×2 (06:09→07:15)
[2019-08-30] MEDS: LEVOTHYROXINE 100 MCG TABLET PO SCH (06:09)
[2019-08-30 07:00] VITALS: BP 103/56
[2019-08-30] MEDS: IV DEXTROSE 10% 1,000 ML IV SCH (07:15)
[2019-08-30] MEDS: IPRATRPIUM/ALBUTEROL 0.5/2.5MG 3 ML NEBU. NEB SCH ×4 (07:21→20:06)
[2019-08-30] MEDS: BUDESONIDE 0.5 MG/2 ML NEBU. NEB SCH ×2 (07:21→20:06)
[2019-08-30] MEDS: ASPIRIN ENTERIC COATED 81 MG TABLET.DR. PO SCH (08:58)
[2019-08-30] MEDS: PSYLLIUM HUSK (SUGAR FREE) 1 PKT PACKET PO SCH (08:58)
[2019-08-30] MEDS: LACTOBACILLUS RHAMNOSUS GG 1 CAPSULE. PO SCH ×2 (08:58→20:51)
[2019-08-30] MEDS: BENZONATATE 100 MG CAPSULE. PO SCH ×3 (08:58→20:48)
[2019-08-30] MEDS: METOPROLOL TART IMMED RELEASE 25 MG TABLET. PO SCH ×2 (08:58→20:49)
[2019-08-30] MEDS: POLYETHYLENE GLYCOL 3350 17 GM PACKET. PO SCH (08:59)
--- NOTE | 2019-08-30 09:50 | PDOC ---
SUBJECTIVE ROS stable OBJECTIVE Vital Signs Vital Signs Date Time Temp Pulse Resp B/P (MAP) Pulse Ox O2 Delivery O2 Flow Rate FiO2 08/30/19 08:58 76 103/56 08/30/19 07:21 99 Nasal Cannula 3.0 08/30/19 07:00 98.3 20 98.3 I & 0 Intake and Output 08/30/19 06:59 Intake Total 1430 ml Output Total 2500 ml Balance -1070 ml Intake Oral 430 ml IV Total 1000 ml Output Urine Total 2500 ml PHYSICAL EXAM Physical Exam GEN NAD HEENT: OM moist Neck supple LUNGS: diminished bases, non labored Heart: irregularly irregular (AFIB- rate controlled) Abdomen: Soft N/T Extremities: No LE edema Neurology: alert, oriented, follow commands No alex Skin No rash DIAGNOSIS/ASSESSMENT Assessment & Plan NEGRITO-ATN , multiple Hospitalizations Per Dr. Carter's initial Eval Pt is not a candidate for HD Currently asymptomatic, renal function IMPROVING was on IV Diuretics, dced , supportive care, avoid nephrotoxins ? Dementia / decision making capacity per Primary [id number] - Receiving Dextrose gtt Recommend switching to NS D5, Monitor Pulm status Repeat BMP , Dw RN HypoKalemia- replace CKD stage 3- Cr 1.5 HyperKalemia - was on K supplements Acute on Chronic CHF - currently compensated Ac Resp failure- stable, On RA Anemia PAROXYSMAL AFIB- Per Card COMMENT/RELEVANT DATA Meds Current Medications Medications (Trade) Dose Ordered Sig/Karen Start Time Stop Time Status Last Admin Dose Admin Albuterol Sulfate (Ventolin Neb Soln) 2.5 mg PRN Q4HRS PRN 08/27/19 10:15 Albuterol/ Ipratropium (Duoneb) 3 ml RTQID 08/27/19 12:00 08/30/19 07:21 3 ML Amiodarone HCl (Cordarone) 200 mg DAILY 08/27/19 11:00 08/27/19 13:50 DC Apixaban (Eliquis) 2.5 mg BID 08/27/19 11:00 08/27/19 13:47 DC Aspirin (Ecotrin) 81 mg DAILYWBKFT 08/28/19 08:00 08/30/19 08:58 81 MG Benzonatate (Tessalon Perle) 100 mg TID 08/27/19 11:00 08/30/19 08:58 100 MG Budesonide (Pulmicort) 0.5 mg RTBID 08/27/19 20:00 08/30/19 07:21 0.5 MG Calcium Gluconate (Calcium Gluconate) 1,000 mg 1X ONCE 08/26/19 18:30 08/26/19 18:32 DC 08/26/19 18:58 1,000 MG Dextrose 1,000 ml @ 20 mls/hr Q24H ONCE 08/27/19 22:00 08/28/19 21:59 DC 08/28/19 06:32 20 MLS/HR Dextrose (Dextrose 50%-Water Syringe) 12.5 gm PRN Q15MIN PRN 08/27/19 10:45 08/28/19 06:32 12.5 GM Docusate Sodium (Colace) 100 mg PRN DAILY PRN 08/29/19 15:00 08/29/19 16:20 100 MG Fentanyl Citrate (Fentanyl 2ml Vial) 50 mcg PRN Q1HR PRN 08/26/19 19:00 08/27/19 18:59 DC Furosemide (Lasix) 40 mg BID92 08/27/19 14:00 08/28/19 14:01 DC 08/28/19 15:32 40 MG Insulin Human Regular (HumuLIN R VIAL) 10 unit 1X ONCE 08/26/19 18:30 08/26/19 18:32 DC 08/26/19 19:07 10 UNIT Lactobacillus Rhamnosus (Culturelle) 1 cap BID 08/27/19 21:00 08/30/19 08:58 1 CAP Lactulose (Lactulose) 20 gm PRN DAILY PRN 08/29/19 15:00 Levothyroxine Sodium (Synthroid) 100 mcg DAILY06 08/27/19 10:30 08/30/19 06:09 100 MCG Metoprolol Tartrate (Lopressor) 25 mg BID 08/27/19 11:00 08/29/19 21:07 25 MG Nicotine (Nicoderm Cq 21mg) 1 patch PRN DAILY PRN 08/27/19 09:00 Ondansetron HCl (Zofran) 4 mg PRN Q4HRS PRN 08/27/19 10:15 Polyethylene Glycol (miraLAX PACKET) 17 gm DAILY 08/30/19 09:00 08/30/19 08:59 17 GM Potassium Chloride/Water 100 ml @ 100 mls/hr Q1H 08/30/19 06:00 08/30/19 07:59 DC 08/30/19 07:15 100 MLS/HR Psyllium Hydrophilic Mucilloid (Metamucil Fiber Packet) 1 pkt DAILY 08/30/19 09:00 08/30/19 08:58 1 PKT Sodium Polystyrene Sulfonate (Kayexalate) 30 gm 1X ONCE 08/26/19 18:30 08/26/19 18:32 DC 08/26/19 22:02 30 GM Sodium Bicarbonate (Sodium Bicarb Adult 8.4% Syr) 50 meq 1X ONCE 08/28/19 07:45 08/28/19 07:46 DC 08/28/19 09:31 50 MEQ Lab Laboratory Tests Test 08/29/19 11:57 08/29/19 16:40 08/29/19 20:37 08/30/19 04:10 Glucose (Fingerstick) 73 mg/dL (70-99) 59 mg/dL (70-99) 122 mg/dL (70-99) Sodium Level 128 mmol/L (136-145) Potassium Level 2.5 mmol/L (3.5-5.1) Chloride Level 88 mmol/L (98-107) Carbon Dioxide Level 32 mmol/L (21-32) Anion Gap 8 (6-14) Blood Urea Nitrogen 84 mg/dL (7-20) Creatinine 2.8 mg/dL (0.6-1.0) Estimated GFR (Cockcroft-Gault) 20.6 Glucose Level 108 mg/dL (70-99) Calcium Level 7.7 mg/dL (8.5-10.1) Test 08/30/19 07:26 Glucose (Fingerstick) 103 mg/dL (70-99) Results All relevant outside records, renal labs, imaging studies, telemetry/EKG's were reviewed. ALTAGRACIA BLANTON MD Aug 30, 2019 09:50
[2019-08-30] MEDS ORDERED: IV DEXTROSE 5% - 0.9 % NACL 1,000 ML IV SCH (10:00)
[2019-08-30 11:34] VITALS: BP 87/53
--- NOTE | 2019-08-30 12:06 | PDOC ---
PULMONARY PROGRESS NOTES Subjective on , sob better, has occ cough Vitals Vital Signs Date Time Temp Pulse Resp B/P (MAP) Pulse Ox O2 Delivery O2 Flow Rate FiO2 08/30/19 11:34 95.9 41 14 87/53 (64) 98 Nasal Cannula 3.0 95.9 ROS: No Nausea General: Alert, No acute distress Lungs: Other (decrease bs) Cardiovascular: S1, S2 Abdomen: Soft, Non-tender Neuro Exam: Alert Extremities: Other (edema) Skin: Warm Labs Laboratory Tests Test 08/28/19 16:44 08/28/19 20:02 08/29/19 02:10 08/29/19 07:39 Glucose (Fingerstick) 111 mg/dL (70-99) 78 mg/dL (70-99) 110 mg/dL (70-99) 151 mg/dL (70-99) Test 08/29/19 08:20 08/29/19 11:57 08/29/19 16:40 08/29/19 20:37 White Blood Count 7.2 x10^3/uL (4.0-11.0) Red Blood Count 3.03 x10^6/uL (3.50-5.40) Hemoglobin 9.5 g/dL (12.0-15.5) Hematocrit 28.6 % (36.0-47.0) Mean Corpuscular Volume 95 fL (79-100) Mean Corpuscular Hemoglobin 31 pg (25-35) Mean Corpuscular Hemoglobin Concent 33 g/dL (31-37) Red Cell Distribution Width 17.6 % (11.5-14.5) Platelet Count 151 x10^3/uL (140-400) Neutrophils (%) (Auto) 80 % (31-73) Lymphocytes (%) (Auto) 13 % (24-48) Monocytes (%) (Auto) 6 % (0-9) Eosinophils (%) (Auto) 0 % (0-3) Basophils (%) (Auto) 0 % (0-3) Neutrophils # (Auto) 5.8 x10^3/uL (1.8-7.7) Lymphocytes # (Auto) 1.0 x10^3/uL (1.0-4.8) Monocytes # (Auto) 0.4 x10^3/uL (0.0-1.1) Eosinophils # (Auto) 0.0 x10^3/uL (0.0-0.7) Basophils # (Auto) 0.0 x10^3/uL (0.0-0.2) Sodium Level 130 mmol/L (136-145) Potassium Level 3.0 mmol/L (3.5-5.1) Chloride Level 88 mmol/L (98-107) Carbon Dioxide Level 31 mmol/L (21-32) Anion Gap 11 (6-14) Blood Urea Nitrogen 90 mg/dL (7-20) Creatinine 3.5 mg/dL (0.6-1.0) Estimated GFR (Cockcroft-Gault) 15.9 BUN/Creatinine Ratio 26 (6-20) Glucose Level 102 mg/dL (70-99) Calcium Level 8.2 mg/dL (8.5-10.1) Total Bilirubin 0.8 mg/dL (0.2-1.0) Aspartate Amino Transf (AST/SGOT) 132 U/L (15-37) Alanine Aminotransferase (ALT/SGPT) 155 U/L (14-59) Alkaline Phosphatase 111 U/L (46-116) Total Protein 6.2 g/dL (6.4-8.2) Albumin 2.9 g/dL (3.4-5.0) Albumin/Globulin Ratio 0.9 (1.0-1.7) Thyroid Stimulating Hormone (TSH) 3.861 uIU/mL (0.358-3.74) Glucose (Fingerstick) 73 mg/dL (70-99) 59 mg/dL (70-99) 122 mg/dL (70-99) Test 08/30/19 04:10 08/30/19 07:26 08/30/19 11:08 Sodium Level 128 mmol/L (136-145) Potassium Level 2.5 mmol/L (3.5-5.1) Chloride Level 88 mmol/L (98-107) Carbon Dioxide Level 32 mmol/L (21-32) Anion Gap 8 (6-14) Blood Urea Nitrogen 84 mg/dL (7-20) Creatinine 2.8 mg/dL (0.6-1.0) Estimated GFR (Cockcroft-Gault) 20.6 Glucose Level 108 mg/dL (70-99) Calcium Level 7.7 mg/dL (8.5-10.1) Glucose (Fingerstick) 103 mg/dL (70-99) 94 mg/dL (70-99) Laboratory Tests Test 08/29/19 16:40 08/29/19 20:37 08/30/19 04:10 08/30/19 07:26 Glucose (Fingerstick) 59 mg/dL (70-99) 122 mg/dL (70-99) 103 mg/dL (70-99) Sodium Level 128 mmol/L (136-145) Potassium Level 2.5 mmol/L (3.5-5.1) Chloride Level 88 mmol/L (98-107) Carbon Dioxide Level 32 mmol/L (21-32) Anion Gap 8 (6-14) Blood Urea Nitrogen 84 mg/dL (7-20) Creatinine 2.8 mg/dL (0.6-1.0) Estimated GFR (Cockcroft-Gault) 20.6 Glucose Level 108 mg/dL (70-99) Calcium Level 7.7 mg/dL (8.5-10.1) Test 08/30/19 11:08 Glucose (Fingerstick) 94 mg/dL (70-99) Medications Active Scripts Medications Dose Route/Sig Max Daily Dose Days Date Category Dose Instructions Lasix (Furosemide) 40 Mg Tablet 1 Tab PO DAILY 30 08/07/19 Rx Culturelle (Lactobacillus Rhamnosus Gg) 1 Each Cap.sprink 1 Cap PO BID 30 08/07/19 Rx Levothyroxine Sodium 100 Mcg Tablet 1 Tab PO DAILY 07/25/19 Reported Budesonide 0.5 Mg/2 Ml Ampul.neb 0.5 Mg NEB RTBID 30 07/05/19 Rx Amiodarone Hcl 200 Mg Tablet 200 Mg PO DAILY 30 07/05/19 Rx Proair Hfa (Albuterol Sulfate) 8.5 Gm Hfa.aer.ad 2.5 Mg NEB PRN Q4HRS PRN 30 07/05/19 Rx Duoneb 0.5-3(2.5) Mg/3 Ml (Albuterol/Ipratropium) 3 Ml Ampul.neb 3 Ml NEB RTQID 30 07/05/19 Rx Klor-Con M20 (Potassium Chloride) 20 Meq Tab.er.prt 20 Meq PO BID 04/28/19 Reported NEW PRESCRIPTIONS Eliquis (Apixaban) 2.5 Mg Tablet 2.5 Mg PO BID 60 04/12/19 Rx Metoprolol Tartrate 25 Mg Tablet 25 Mg PO BID 02/13/19 Rx [Nicotine 21MG] 1 PATCH Patch 1 Patch TD PRN DAILY PRN MDD 1 07/25/18 Rx Tessalon Perle (Benzonatate) 100 Mg Capsule 1 Cap PO TID 06/14/18 Rx Flonase Allergy Relief (Fluticasone Propionate) 9.9 Ml [place].susp 2 Sprays NS DAILY 06/14/18 Rx Impression . IMPRESSION: 1. Acute on chronic respiratory failure, multifactorial in etiology, acute systolic/diastolic congestive heart failure, chronic obstructive pulmonary disease with acute exacerbation, volume overload secondary to acute kidney injury. 2. Abnormal chest x-ray. 3. Acute systolic and diastolic congestive heart failure. 4. Acute exacerbation of chronic obstructive pulmonary disease. 5. Acute kidney injury. 6. Chronic kidney disease. 7. Cardiomyopathy. 8. Paroxysmal atrial fibrillation. Plan . PLAN AND RECOMMENDATIONS: 1. Titrate FiO2 to keep O2 saturation 92%. 2. Bronchodilator. 3. Inhaled corticosteroid. 4. Agree with diuretics. on hold, cr down to 3.5, nephro following Monitor potassium and creatinine very closely. 5. We will monitor her pleural effusion. may need a thoracentesis, although her pleural effusion looks slightly less than previous chest x-ray. repeat cxr today 6. Cardiology is consulted. They held amiodarone and Eliquis. 7. The findings and recommendations were discussed with the patient and RN. AMARA MENG MD Aug 30, 2019 12:06
--- NOTE | 2019-08-30 13:15 | PDOC ---
CARDIO Progress Notes Date and Time Date of Service 08/30/19 Time of Evaluation 1310 Subjective Subjective: No Palpitations, No Dizziness, Other (appears fatigued) Vitals Vitals Vital Signs Date Time Temp Pulse Resp B/P (MAP) Pulse Ox O2 Delivery O2 Flow Rate FiO2 08/30/19 11:34 95.9 41 14 87/53 (64) 98 Nasal Cannula 3.0 95.9 Weight Weight [ ] Input and Output Intake and Output Intake and Output 08/30/19 07:00 Intake Total 1430 ml Output Total 2500 ml Balance -1070 ml Intake Oral 430 ml IV Total 1000 ml Output Urine Total 2500 ml Laboratory Labs Laboratory Tests Test 08/29/19 16:40 08/29/19 20:37 08/30/19 04:10 08/30/19 07:26 Glucose (Fingerstick) 59 mg/dL (70-99) 122 mg/dL (70-99) 103 mg/dL (70-99) Sodium Level 128 mmol/L (136-145) Potassium Level 2.5 mmol/L (3.5-5.1) Chloride Level 88 mmol/L (98-107) Carbon Dioxide Level 32 mmol/L (21-32) Anion Gap 8 (6-14) Blood Urea Nitrogen 84 mg/dL (7-20) Creatinine 2.8 mg/dL (0.6-1.0) Estimated GFR (Cockcroft-Gault) 20.6 Glucose Level 108 mg/dL (70-99) Calcium Level 7.7 mg/dL (8.5-10.1) Test 08/30/19 11:08 Glucose (Fingerstick) 94 mg/dL (70-99) Physical Exam HEENT: Neck Supple W Full Motion Chest: Symmetric LUNGS: Other (bibasilar crackles ) Heart: irregularly irregular (AFIB, intermittent bradycardia noted with 3 sec pause) Abdomen: Soft N/T Extremities: Other (2+ bilateral LE edema ) Neurology: alert, follow commands Assessment Assessment 1. Acute on chronic respiratory failure; multifactorial as noted below 2. Acute on chronic diastolic/systolic CHF with large right pleural effusion 3. NICM; LVEF 45% Recent cath without obstructive disease 3. PAFIB/flutter with RVR; PAFIB noted with bradycardia. 4. Severe NEGRITO on CKD3 with hyperkalemia: K corrected with kayexelate/lasix. per nephrology 5. Severe pulmonary HTN/cor pulmonale 6. COPD with past tobaccoism 7. Asymptomatic SB: low 40s with associated with metabolic issues. 8. Transaminitis with coagulopathy: suspect cardiohepatorenal syndrome Recommendations NO AV venus blocking agents. Discontinue IVFs. Will give dose of oral Lasix ASA therapy Poor candidate for log-term OAC Poor prognosis; recommend Hospice. Justicifation of Admission Dx: Justifications for Admission: Justification of Admission Dx: Yes CHANELL MCCALL APRN Aug 30, 2019 13:15
--- NOTE | 2019-08-30 13:43 | NUR ---
Patient had a three second pause, VS BP 87/53 P 41 98% on 3L NC Temp 95.9 Auxiliary. Patient is lethargic but able to wake. MD Elissa notified. spoke with patients daughter/DPOA Hallie. New orders recieved, patient is now a DNR and hospice to eval at home on D/C. Labs to be rechecked. Will continue to monitor. Spoke with patient daughter, daughter requested to visit her mother, nursing supervisor component assembler notified, due to COVID 19, visitors are still restricted at this time. ROD England with cardiology notified of three second pause as well and updated on the new code status.
[2019-08-30 14:13] LABS: MAGNESIUM 1.9 mg/dL (1.8-2.4)
[2019-08-30 14:14] LABS: PROTHROMBIN TIME PATIENT 17.3 SEC (11.7-14.0)
--- NOTE | 2019-08-30 14:45 | RAD ---
PORTABLE CHEST 1V History: Reason: effusion / Spl. Instructions: / History: Comparison: August 26, 2019 Findings: Moderate layering right pleural effusion. Multifocal bilateral opacities and interstitial thickening, unchanged. Low lung volumes. Small left pleural effusion, unchanged. Unchanged heart size. No pneumothorax. Impression: 1. Moderate layering right and small left pleural effusions, likely unchanged compared to prior allowing for redistribution. 2. Multifocal pulmonary opacities with interstitial thickening, similar compared to prior. Electronically signed by: Clemente Breen DO (08/30/2019 2:42 PM) [id number]
[2019-08-30 14:59] VITALS: BP 128/68
[2019-08-30] MEDS ORDERED: POTASSIUM CHLORIDE 20MEQ 100 ML IV ONE (15:00)
--- NOTE | 2019-08-30 15:41 | PDOC ---
PROGRESS NOTES Chief Complaint Chief Complaint A/P: Hyperkalemia -improved Acute systolic and diastolic heart failure -will follow recommendations from exchange consultant regarding diuresis Hypothermia - improved with warming blanket Hypoglycemia - no DM2 history. We will continue to follow we will stop D5 normal saline Acute kidney injury - on CKD - likely vasomotor nephropathy vs cardiorenal syndrome. She and her daughter refuse dialysis, this is appropriate given her chronic conditions Acute hypoxic respiratory failure, multifactorial - CHF, COPD, Acute chronic obstructive pulmonary disease exacerbation. Paroxysmal atrial flutter/fibrillation. Hypothyroidism acquired status post thyroidectomy. Anemia. CAD Dementia - likely vascular with prior TIAs GERD Hyperlipidemia Hypertension Macrocytosis - UTIs Chronic pain Previous tobacco abuse. Moderate aortic regurgitation FEN - Cardiac diet, PPX - eliquis FULL CODE Dispo - inpatient 2 midnights History of Present Illness History of Present Illness Ms Levin is a 64 yo F w/ PMHx COPD, severe cardiomyopathy, CHF EF 40-45%, coronary artery disease, HLD, GERD, paroxysmal afib, ex-smoker who was brought to ED from home where she lives with her daughter by EMS in respiratory distress with swelling and chest discomfort, She was discharged earlier this year to SNF and was on the ventilator earlier this year. Last hospital stay she was discharged home with home health. recently here on 08/02/2019 for heart failure and hypoxia. Her COVID test at that time was negative She had not felt well for the past few days. She does have cough with some sputum production. Elevated potassium of 6.3 and a BUN of 91 and a creatinine of 3.5. Have contacted her daughter Hallie, and she is made it clear that her mother is requested not to be back on a ventilator. [facility] has asked that we give her "1 more time" if she has cardiac or respiratory arrest. She notes the reason she revoked hospice as she was not comfortable with her mother receiving morphine for pain and for shortness of breath and felt like it was slowly killing her. Consults: Cardiology, Pulmonary and Nephrology. 08/26: Glucose of 15. D50 given x1 ampule with increase to 63, but now persistently low, will change to D10 infusion 08/27: Overnight was transferred to ICU on D10 GTT, glucose came up into the 600s was transferred back to med telemetry. Temp 93 F overnight. Care order placed and D10 continued glucose 60 this morning BUN 99. Creatinine 4.1. More alert today, no complaints. 08/28:Temp normalized. Glucose in 140s. BUN 90, Cr 3.5. Na 130, K 3. AST and ALT now in 100s. UOP 1250 yesterday, stopped lasix. More alert today. 08/29: Patient had 3-second pauses and presented bradycardia temporarily. clinical science consultant recommendations greatly appreciated currently with beta- blockers on hold. I have discussed the plan of care with patient's daughter and we discussed CODE STATUS as well. Daughter now leaning towards allowing patient to have a natural we discussed CODE STATUS which Ms. Purcell has expressed on numerous occasions not only on this hospital stay. She does not want resuscitation maneuvers I have expressed wishes to daughter who is power of soccer referee and she has agreed to transition to DNR if she hears it from her mother. We discussed hospice as well as a potential plan of care moving forward given her multiple comorbidities and she has agreed to a consultation once she gets discharged home Vitals Vitals Vital Signs Date Time Temp Pulse Resp B/P (MAP) Pulse Ox O2 Delivery O2 Flow Rate FiO2 08/30/19 14:59 96.6 85 17 128/68 (88) 95 Nasal Cannula 3.0 96.6 Physical Exam Physical Exam General: Alert, Cooperative, No acute distress Heart: Regular rate (SB 40s), Other (distant heart sounds) Lungs: Wheezing, Crackles, Other Abdomen: Soft, Other (anasarca) Extremities: Other (anasarca) Skin: No breakdown General: Alert, Cooperative, No acute distress Heart: Regular rate (SB 40s), Other (distant heart sounds) Lungs: Other (decrease bs) Abdomen: Soft, Other (anasarca) Extremities: Other (anasarca) Skin: No breakdown Labs LABS Laboratory Tests Test 08/29/19 16:40 08/29/19 20:37 08/30/19 04:10 08/30/19 07:26 Glucose (Fingerstick) 59 mg/dL (70-99) 122 mg/dL (70-99) 103 mg/dL (70-99) Sodium Level 128 mmol/L (136-145) Potassium Level 2.5 mmol/L (3.5-5.1) Chloride Level 88 mmol/L (98-107) Carbon Dioxide Level 32 mmol/L (21-32) Anion Gap 8 (6-14) Blood Urea Nitrogen 84 mg/dL (7-20) Creatinine 2.8 mg/dL (0.6-1.0) Estimated GFR (Cockcroft-Gault) 20.6 Glucose Level 108 mg/dL (70-99) Calcium Level 7.7 mg/dL (8.5-10.1) Test 08/30/19 11:08 08/30/19 13:50 Glucose (Fingerstick) 94 mg/dL (70-99) Prothrombin Time 17.3 SEC (11.7-14.0) Prothromb Time International Ratio 1.5 (0.8-1.1) Sodium Level 130 mmol/L (136-145) Potassium Level 3.0 mmol/L (3.5-5.1) Magnesium Level 1.9 mg/dL (1.8-2.4) Review of Systems Review of Systems Pertinent as per HPI otherwise 14 point review of system is negative Assessment and Plan Assessmemt and Plan Problems Medical Problems: (1) CHF exacerbation Status: Acute (2) Hyperkalemia Status: Acute Comment Review of Relevant I have reviewed the following items suad (where applicable) has been applied. Labs Laboratory Tests Test 08/28/19 16:44 08/28/19 20:02 08/29/19 02:10 08/29/19 07:39 Glucose (Fingerstick) 111 mg/dL (70-99) 78 mg/dL (70-99) 110 mg/dL (70-99) 151 mg/dL (70-99) Test 08/29/19 08:20 08/29/19 11:57 08/29/19 16:40 08/29/19 20:37 White Blood Count 7.2 x10^3/uL (4.0-11.0) Red Blood Count 3.03 x10^6/uL (3.50-5.40) Hemoglobin 9.5 g/dL (12.0-15.5) Hematocrit 28.6 % (36.0-47.0) Mean Corpuscular Volume 95 fL (79-100) Mean Corpuscular Hemoglobin 31 pg (25-35) Mean Corpuscular Hemoglobin Concent 33 g/dL (31-37) Red Cell Distribution Width 17.6 % (11.5-14.5) Platelet Count 151 x10^3/uL (140-400) Neutrophils (%) (Auto) 80 % (31-73) Lymphocytes (%) (Auto) 13 % (24-48) Monocytes (%) (Auto) 6 % (0-9) Eosinophils (%) (Auto) 0 % (0-3) Basophils (%) (Auto) 0 % (0-3) Neutrophils # (Auto) 5.8 x10^3/uL (1.8-7.7) Lymphocytes # (Auto) 1.0 x10^3/uL (1.0-4.8) Monocytes # (Auto) 0.4 x10^3/uL (0.0-1.1) Eosinophils # (Auto) 0.0 x10^3/uL (0.0-0.7) Basophils # (Auto) 0.0 x10^3/uL (0.0-0.2) Sodium Level 130 mmol/L (136-145) Potassium Level 3.0 mmol/L (3.5-5.1) Chloride Level 88 mmol/L (98-107) Carbon Dioxide Level 31 mmol/L (21-32) Anion Gap 11 (6-14) Blood Urea Nitrogen 90 mg/dL (7-20) Creatinine 3.5 mg/dL (0.6-1.0) Estimated GFR (Cockcroft-Gault) 15.9 BUN/Creatinine Ratio 26 (6-20) Glucose Level 102 mg/dL (70-99) Calcium Level 8.2 mg/dL (8.5-10.1) Total Bilirubin 0.8 mg/dL (0.2-1.0) Aspartate Amino Transf (AST/SGOT) 132 U/L (15-37) Alanine Aminotransferase (ALT/SGPT) 155 U/L (14-59) Alkaline Phosphatase 111 U/L (46-116) Total Protein 6.2 g/dL (6.4-8.2) Albumin 2.9 g/dL (3.4-5.0) Albumin/Globulin Ratio 0.9 (1.0-1.7) Thyroid Stimulating Hormone (TSH) 3.861 uIU/mL (0.358-3.74) Glucose (Fingerstick) 73 mg/dL (70-99) 59 mg/dL (70-99) 122 mg/dL (70-99) Test 6/1/20 04:10 08/30/19 07:26 08/30/19 11:08 08/30/19 13:50 Sodium Level 128 mmol/L (136-145) 130 mmol/L (136-145) Potassium Level 2.5 mmol/L (3.5-5.1) 3.0 mmol/L (3.5-5.1) Chloride Level 88 mmol/L (98-107) Carbon Dioxide Level 32 mmol/L (21-32) Anion Gap 8 (6-14) Blood Urea Nitrogen 84 mg/dL (7-20) Creatinine 2.8 mg/dL (0.6-1.0) Estimated GFR (Cockcroft-Gault) 20.6 Glucose Level 108 mg/dL (70-99) Calcium Level 7.7 mg/dL (8.5-10.1) Glucose (Fingerstick) 103 mg/dL (70-99) 94 mg/dL (70-99) Prothrombin Time 17.3 SEC (11.7-14.0) Prothromb Time International Ratio 1.5 (0.8-1.1) Magnesium Level 1.9 mg/dL (1.8-2.4) Laboratory Tests Test 08/29/19 16:40 08/29/19 20:37 08/30/19 04:10 08/30/19 07:26 Glucose (Fingerstick) 59 mg/dL (70-99) 122 mg/dL (70-99) 103 mg/dL (70-99) Sodium Level 128 mmol/L (136-145) Potassium Level 2.5 mmol/L (3.5-5.1) Chloride Level 88 mmol/L (98-107) Carbon Dioxide Level 32 mmol/L (21-32) Anion Gap 8 (6-14) Blood Urea Nitrogen 84 mg/dL (7-20) Creatinine 2.8 mg/dL (0.6-1.0) Estimated GFR (Cockcroft-Gault) 20.6 Glucose Level 108 mg/dL (70-99) Calcium Level 7.7 mg/dL (8.5-10.1) Test 08/30/19 11:08 08/30/19 13:50 Glucose (Fingerstick) 94 mg/dL (70-99) Prothrombin Time 17.3 SEC (11.7-14.0) Prothromb Time International Ratio 1.5 (0.8-1.1) Sodium Level 130 mmol/L (136-145) Potassium Level 3.0 mmol/L (3.5-5.1) Magnesium Level 1.9 mg/dL (1.8-2.4) Medications Current Medications Calcium Gluconate (Calcium Gluconate) 1,000 mg 1X ONCE IVP Last administered on 08/26/19at 18:58; Start 08/26/19 at 18:30; Stop 08/26/19 at 18:32; Status DC Sodium Bicarbonate (Sodium Bicarb Adult 8.4% Syr) 50 meq 1X ONCE IV Last administered on 08/26/19at 19:08; Start 08/26/19 at 18:30; Stop 08/26/19 at 18:32; Status DC Dextrose (Dextrose 50%-Water Syringe) 25 gm 1X ONCE IV Last administered on 08/26/19at 19:01; Start 08/26/19 at 18:30; Stop 08/26/19 at 18:32; Status DC Insulin Human Regular (HumuLIN R VIAL) 10 unit 1X ONCE IV Last administered on 08/26/19at 19:07; Start 08/26/19 at 18:30; Stop 08/26/19 at 18:32; Status DC Sodium Polystyrene Sulfonate (Kayexalate) 30 gm 1X ONCE PO Last administered on 08/26/19at 22:02; Start 08/26/19 at 18:30; Stop 08/26/19 at 18:32; Status DC Furosemide (Lasix) 80 mg 1X ONCE IVP Last administered on 08/26/19at 19:10; Start 08/26/19 at 18:45; Stop 08/26/19 at 18:48; Status DC Fentanyl Citrate (Fentanyl 2ml Vial) 50 mcg 1X ONCE IVP Last administered on 08/26/19at 18:57; Start 08/26/19 at 19:00; Stop 08/26/19 at 19:01; Status DC Ondansetron HCl (Zofran) 4 mg PRN Q8HRS PRN IV NAUSEA/VOMITING; Start 08/26/19 at 19:00; Stop 08/27/19 at 10:15; Status DC Fentanyl Citrate (Fentanyl 2ml Vial) 50 mcg PRN Q1HR PRN IV PAIN; Start 08/26/19 at 19:00; Stop 08/27/19 at 18:59; Status DC Dextrose (Dextrose 50%-Water Syringe) 25 gm 1X ONCE IV ; Start 08/26/19 at 22:30; Stop 08/26/19 at 22:31; Status DC Ondansetron HCl (Zofran) 4 mg PRN Q4HRS PRN IV NAUSEA/VOMITING; Start 08/27/19 at 10:15 Albuterol Sulfate (Ventolin Neb Soln) 2.5 mg PRN Q4HRS PRN NEB SHORTNESS OF BREATH; Start 08/27/19 at 10:15 Amiodarone HCl (Cordarone) 200 mg DAILY PO ; Start 08/27/19 at 11:00; Stop 08/27/19 at 13:50; Status DC Apixaban (Eliquis) 2.5 mg BID PO ; Start 08/27/19 at 11:00; Stop 08/27/19 at 13:47; Status DC Benzonatate (Tessalon Perle) 100 mg TID PO Last administered on 08/30/19at 08:58; Start 08/27/19 at 11:00 Budesonide (Pulmicort) 0.5 mg RTBID NEB Last administered on 08/30/19at 07:21; Start 08/27/19 at 20:00 Albuterol/ Ipratropium (Duoneb) 3 ml RTQID NEB Last administered on 08/30/19at 07:21; Start 08/27/19 at 12:00 Lactobacillus Rhamnosus (Culturelle) 1 cap BID PO Last administered on 08/30/19at 08:58; Start 08/27/19 at 21:00 Levothyroxine Sodium (Synthroid) 100 mcg DAILY06 PO Last administered on 08/30/19at 06:09; Start 08/27/19 at 10:30 Metoprolol Tartrate (Lopressor) 25 mg BID PO Last administered on 08/29/19at 21:07; Start 08/27/19 at 11:00 Nicotine (Nicoderm Cq 21mg) 1 patch PRN DAILY PRN TD SMOKING CESSATION; Start 08/27/19 at 09:00 Furosemide (Lasix) 40 mg BID92 IVP Last administered on 08/28/19at 15:32; Start 08/27/19 at 14:00; Stop 08/28/19 at 14:01; Status DC Dextrose (Dextrose 50%-Water Syringe) 25 gm STK-MED ONCE IV ; Start 08/27/19 at 10:18; Stop 08/27/19 at 10:18; Status DC Dextrose (Dextrose 50%-Water Syringe) 25 gm STK-MED ONCE IV ; Start 08/27/19 at 10:25; Stop 08/27/19 at 10:26; Status DC Dextrose (Dextrose 50%-Water Syringe) 12.5 gm PRN Q15MIN PRN IV SEE COMMENTS Last administered on 08/28/19at 06:32; Start 08/27/19 at 10:45 Dextrose 500 ml @ 50 mls/hr 1X ONCE IV ; Start 08/27/19 at 10:45; Stop 08/27/19 at 11:03; Status DC Dextrose 500 ml @ 75 mls/hr Q6H40M IV ; Start 08/27/19 at 10:45; Stop 08/27/19 at 11:03; Status DC Dextrose 1,000 ml @ 100 mls/hr Q10H IV ; Start 08/27/19 at 11:15; Stop 08/27/19 at 18:06; Status DC Aspirin (Ecotrin) 81 mg DAILYWBKFT PO Last administered on 08/30/19at 08:58; Start 08/28/19 at 08:00 Dextrose 1,000 ml @ 100 mls/hr Q10H IV Last administered on 08/30/19at 07:15; Start 08/27/19 at 21:45; Stop 08/30/19 at 11:04; Status DC Dextrose 1,000 ml @ 20 mls/hr Q24H ONCE IV Last administered on 08/28/19at 06:32; Start 08/27/19 at 22:00; Stop 08/28/19 at 21:59; Status DC Sodium Bicarbonate (Sodium Bicarb Adult 8.4% Syr) 50 meq 1X ONCE IV Last administered on 08/28/19at 09:31; Start 08/28/19 at 07:45; Stop 08/28/19 at 07:46; Status DC Polyethylene Glycol (miraLAX PACKET) 17 gm DAILY PO Last administered on 08/30/19at 08:59; Start 6/1/20 at 09:00 Psyllium Hydrophilic Mucilloid (Metamucil Fiber Packet) 1 pkt DAILY PO Last administered on 08/30/19at 08:58; Start 08/30/19 at 09:00 Docusate Sodium (Colace) 100 mg PRN DAILY PRN PO HARD STOOLS Last administered on 08/29/19at 16:20; Start 08/29/19 at 15:00 Lactulose (Lactulose) 20 gm PRN DAILY PRN PO CONSTIPATION; Start 08/29/19 at 15:00 Potassium Chloride/Water 100 ml @ 100 mls/hr Q1H IV Last administered on 08/30/19at 07:15; Start 08/30/19 at 06:00; Stop 08/30/19 at 07:59; Status DC Dextrose/Sodium Chloride 1,000 ml @ 100 mls/hr Q10H IV Last administered on 08/30/19at 10:00; Start 08/30/19 at 10:00 Potassium Chloride/Water 100 ml @ 50 mls/hr 1X ONCE IV Last administered on 08/30/19at 15:00; Start 08/30/19 at 15:00; Stop 08/30/19 at 16:59 Active Scripts Active Lasix (Furosemide) 40 Mg Tablet 1 Tab PO DAILY 30 Days Culturelle (Lactobacillus Rhamnosus Gg) 1 Each Cap.sprink 1 Cap PO BID 30 Days Budesonide 0.5 Mg/2 Ml Ampul.neb 0.5 Mg NEB RTBID 30 Days Amiodarone Hcl 200 Mg Tablet 200 Mg PO DAILY 30 Days Proair Hfa (Albuterol Sulfate) 8.5 Gm Hfa.aer.ad 2.5 Mg NEB PRN Q4HRS PRN 30 Days Duoneb 0.5-3(2.5) Mg/3 Ml (Albuterol/Ipratropium) 3 Ml Ampul.neb 3 Ml NEB RTQID 30 Days Eliquis (Apixaban) 2.5 Mg Tablet 2.5 Mg PO BID 60 Days Metoprolol Tartrate 25 Mg Tablet 25 Mg PO BID [Nicotine 21MG] 1 PATCH Patch 1 Patch TD PRN DAILY PRN MDD 1 Tessalon Perle (Benzonatate) 100 Mg Capsule 1 Cap PO TID Flonase Allergy Relief (Fluticasone Propionate) 9.9 Ml Star.susp 2 Sprays NS DAILY Reported Levothyroxine Sodium 100 Mcg Tablet 1 Tab PO DAILY Klor-Con M20 (Potassium Chloride) 20 Meq Tab.er.prt 20 Meq PO BID NEW PRESCRIPTIONS Vitals/I & O Vital Sign - Last 24 Hours 08/29/19 08/29/19 08/29/19 08/29/19 19:48 20:00 20:13 21:07 Temp 97.7 97.7 Pulse 61 61 Resp 20 B/P (MAP) 118/37 (64) 118/37 Pulse Ox 93 98 O2 Delivery Nasal Cannula Nasal Cannula Nasal Cannula O2 Flow Rate 3.0 3.0 2.0 08/29/19 08/30/19 08/30/19 08/30/19 23:35 03:29 07:00 07:21 Temp 97.3 97.5 98.3 97.3 97.5 98.3 Pulse 49 80 76 Resp 20 20 20 B/P (MAP) 130/72 (91) 117/85 (96) 103/56 (72) Pulse Ox 94 94 100 99 O2 Delivery Nasal Cannula Nasal Cannula Nasal Cannula Nasal Cannula O2 Flow Rate 3.0 3.0 3.0 3.0 08/30/19 08/30/19 08/30/19 08/30/19 08:00 08:58 11:34 14:59 Temp 95.9 96.6 95.9 96.6 Pulse 76 41 85 Resp 14 17 B/P (MAP) 103/56 87/53 (64) 128/68 (88) Pulse Ox 98 95 O2 Delivery Nasal Cannula Nasal Cannula Nasal Cannula O2 Flow Rate 3.0 3.0 3.0 Intake and Output 08/29/19 08/29/19 08/30/19 15:00 23:00 07:00 Intake Total 1120 ml 260 ml 50 ml Output Total 1000 ml 1500 ml Balance 1120 ml -740 ml -1450 ml CHENG BRUNO MD Aug 30, 2019 15:41
[2019-08-30] MEDS ORDERED: FUROSEMIDE 80 MG TABLET. PO ONE (16:45)
[2019-08-30] MEDS: POTASSIUM BICARB 20 MEQ EFFERVESCENT TABLET. PO SCH ×2 (17:10→20:49)
[2019-08-30] MEDS ORDERED: POTASSIUM CHLORIDE 20MEQ 100 ML IV SCH (18:00)
[2019-08-30 19:44] VITALS: BP 128/94
[2019-08-30 23:29] VITALS: BP 97/68
[2019-08-31 03:40] VITALS: BP 113/69
[2019-08-31 04:41] LABS: CALCIUM 8.1 mg/dL (8.5-10.1); CREATININE 2.2 mg/dL (0.6-1.0); GFR 27.2; POTASSIUM 3.6 mmol/L (3.5-5.1)
[2019-08-31] MEDS: LEVOTHYROXINE 100 MCG TABLET PO SCH (06:08)
[2019-08-31] MEDS: IPRATRPIUM/ALBUTEROL 0.5/2.5MG 3 ML NEBU. NEB SCH ×4 (07:27→20:06)
[2019-08-31] MEDS: BUDESONIDE 0.5 MG/2 ML NEBU. NEB SCH ×2 (07:27→20:06)
[2019-08-31 07:48] VITALS: BP 113/78
[2019-08-31] MEDS: PSYLLIUM HUSK (SUGAR FREE) 1 PKT PACKET PO SCH (08:52)
[2019-08-31] MEDS: POLYETHYLENE GLYCOL 3350 17 GM PACKET. PO SCH (08:52)
[2019-08-31] MEDS: FUROSEMIDE 40 MG TABLET. PO SCH (08:52)
[2019-08-31] MEDS: LACTOBACILLUS RHAMNOSUS GG 1 CAPSULE. PO SCH ×2 (08:52→21:05)
[2019-08-31] MEDS: ASPIRIN ENTERIC COATED 81 MG TABLET.DR. PO SCH (08:52)
[2019-08-31] MEDS: METOPROLOL TART IMMED RELEASE 25 MG TABLET. PO SCH (08:52)
[2019-08-31] MEDS: BENZONATATE 100 MG CAPSULE. PO SCH ×3 (08:52→21:05)
[2019-08-31 11:02] VITALS: BP 133/86
--- NOTE | 2019-08-31 11:40 | PDOC ---
CARDIO Progress Notes Date and Time Date of Service 08/31/2019 Time of Evaluation 1040 Subjective Subjective: No Chest Pain, No shortness of breath, No Palpitations Vitals Vitals Vital Signs Date Time Temp Pulse Resp B/P (MAP) Pulse Ox O2 Delivery O2 Flow Rate FiO2 08/31/19 11:25 97 Nasal Cannula 3.0 08/31/19 11:02 97.5 90 17 133/86 (102) 97.5 Weight Weight [ ] Input and Output Intake and Output Intake and Output 08/31/19 07:00 Output Total 3450 ml Balance -3450 ml Output Urine Total 3450 ml Laboratory Labs Laboratory Tests Test 08/30/19 13:50 08/30/19 16:29 08/30/19 20:45 08/31/19 03:50 Prothrombin Time 17.3 SEC (11.7-14.0) Prothromb Time International Ratio 1.5 (0.8-1.1) Sodium Level 130 mmol/L (136-145) 133 mmol/L (136-145) Potassium Level 3.0 mmol/L (3.5-5.1) 3.6 mmol/L (3.5-5.1) Magnesium Level 1.9 mg/dL (1.8-2.4) Glucose (Fingerstick) 84 mg/dL (70-99) 90 mg/dL (70-99) Chloride Level 91 mmol/L (98-107) Carbon Dioxide Level 42 mmol/L (21-32) Anion Gap 0 (6-14) Blood Urea Nitrogen 70 mg/dL (7-20) Creatinine 2.2 mg/dL (0.6-1.0) Estimated GFR (Cockcroft-Gault) 27.2 Glucose Level 67 mg/dL (70-99) Calcium Level 8.1 mg/dL (8.5-10.1) Test 08/31/19 07:27 Glucose (Fingerstick) 86 mg/dL (70-99) Physical Exam HEENT: Neck Supple W Full Motion Chest: Symmetric LUNGS: Other (bibasilar crackles ) Heart: irregularly irregular (AFIB) Abdomen: Soft N/T Extremities: Other (2+ bilateral LE edema ) Neurology: alert, follow commands Assessment Assessment 1. Acute on chronic respiratory failure; multifactorial as noted below. SOA much better 2. Acute on chronic diastolic/systolic CHF with large right pleural effusion: appears compensated 3. NICM; LVEF 45% Recent cath without obstructive disease 3. PAFIB/flutter with RVR; was on SR now AFIB with episodes of bradycardia and x1 3 sec pause with underlying uremia and BB use 4. Severe NEGRITO on CKD3 with hyperkalemia: K is no corrected but remains uremic. 5. Severe pulmonary HTN/cor pulmonale 6. COPD with past tobaccoism 7. Transaminitis with coagulopathy: suspect cardiohepatorenal syndrome Recommendations 1. Consistent with tachy-raul syndrome however significant comorbid conditions and poor prognosis precludes aggressive measures such as PPM. Will continue to hold BB and completely off amiodarone. 2. Continue oral lasix. No plans for HD nor thoracentesis. 3. No further eliquis due to significant renal insufficiency and coagulopathy issues and high risk for bleed and falls. Start on baby ASA prior to DC. INR now at 1.5 from 3.5 4. Poor prognosis; recommend Hospice. Daughter is considering. Justicifation of Admission Dx: Justifications for Admission: Justification of Admission Dx: Yes MARLEEN CEBALLOS APRN Aug 31, 2019 11:40
--- NOTE | 2019-08-31 12:01 | PDOC ---
SUBJECTIVE ROS stable OBJECTIVE Vital Signs Vital Signs Date Time Temp Pulse Resp B/P (MAP) Pulse Ox O2 Delivery O2 Flow Rate FiO2 08/31/19 11:25 97 Nasal Cannula 3.0 08/31/19 11:02 97.5 90 17 133/86 (102) 97.5 I & 0 Intake and Output0 08/31/19 07:00 Output Total 3450 ml Balance -3450 ml Output Urine Total 3450 ml PHYSICAL EXAM Physical Exam GEN NAD HEENT: OM moist Neck supple LUNGS: diminished bases, non labored Heart: irregularly irregular (AFIB- rate controlled) Abdomen: Soft N/T Extremities: No LE edema Neurology: alert, oriented, follow commands No alex Skin No rash DIAGNOSIS/ASSESSMENT Assessment & Plan NEGRITO-ATN , multiple Hospitalizations Per Dr. Carter's initial Eval Pt is not a candidate for HD Currently renal function IMPROVING supportive care, avoid nephrotoxins [id number] - Improving, CKD stage 3- Cr 1.5 Acute on Chronic CHF - currently compensated , cardiology managing Ac Resp failure- stable, On RA Anemia PAROXYSMAL AFIB- Per Card COMMENT/RELEVANT DATA Meds Current Medications Medications (Trade) Dose Ordered Sig/Karen Start Time Stop Time Status Last Admin Dose Admin Albuterol Sulfate (Ventolin Neb Soln) 2.5 mg PRN Q4HRS PRN 08/27/19 10:15 Albuterol/ Ipratropium (Duoneb) 3 ml RTQID 08/27/19 12:00 08/31/19 11:24 3 ML Amiodarone HCl (Cordarone) 200 mg DAILY 08/27/19 11:00 08/27/19 13:50 DC Apixaban (Eliquis) 2.5 mg BID 08/27/19 11:00 08/27/19 13:47 DC Aspirin (Ecotrin) 81 mg [id number] 08/28/19 08:00 08/31/19 08:52 81 MG Benzonatate (Tessalon Perle) 100 mg TID 08/27/19 11:00 08/31/19 08:52 100 MG Budesonide (Pulmicort) 0.5 mg RTBID 08/27/19 20:00 08/31/19 07:27 0.5 MG Calcium Gluconate (Calcium Gluconate) 1,000 mg 1X ONCE 08/26/19 18:30 08/26/19 18:32 DC 08/26/19 18:58 1,000 MG Dextrose 1,000 ml @ 20 mls/hr Q24H ONCE 08/27/19 22:00 08/28/19 21:59 DC 08/28/19 06:32 20 MLS/HR Dextrose (Dextrose 50%-Water Syringe) 12.5 gm PRN Q15MIN PRN 08/27/19 10:45 08/28/19 06:32 12.5 GM Dextrose/Sodium Chloride 1,000 ml @ 100 mls/hr Q10H 08/30/19 10:00 08/30/19 16:28 DC 08/30/19 10:00 100 MLS/HR Docusate Sodium (Colace) 100 mg PRN DAILY PRN 08/29/19 15:00 08/29/19 16:20 100 MG Fentanyl Citrate (Fentanyl 2ml Vial) 50 mcg PRN Q1HR PRN 08/26/19 19:00 08/27/19 18:59 DC Furosemide (Lasix) 80 mg 1X ONCE 08/30/19 16:45 08/30/19 16:46 DC 08/30/19 17:11 80 MG Insulin Human Regular (HumuLIN R VIAL) 10 unit 1X ONCE 08/26/19 18:30 08/26/19 18:32 DC 08/26/19 19:07 10 UNIT Lactobacillus Rhamnosus (Culturelle) 1 cap BID 08/27/19 21:00 08/31/19 08:52 1 CAP Lactulose (Lactulose) 20 gm PRN DAILY PRN 08/29/19 15:00 Levothyroxine Sodium (Synthroid) 100 mcg DAILY06 08/27/19 10:30 08/31/19 06:08 100 MCG Metoprolol Tartrate (Lopressor) 25 mg BID 08/27/19 11:00 08/30/19 20:49 25 MG Nicotine (Nicoderm Cq 21mg) 1 patch PRN DAILY PRN 08/27/19 09:00 Ondansetron HCl (Zofran) 4 mg PRN Q4HRS PRN 08/27/19 10:15 Polyethylene Glycol (miraLAX PACKET) 17 gm DAILY 08/30/19 09:00 08/31/19 08:52 17 GM Potassium Bicarbonate (Potassium Effervescent Tablet) 40 meq Q2HR 08/30/19 18:00 08/30/19 20:01 DC 08/30/19 20:49 40 MEQ Potassium Chloride/Water 100 ml @ 50 mls/hr Q2H 08/30/19 18:00 08/30/19 16:28 DC Psyllium Hydrophilic Mucilloid (Metamucil Fiber Packet) 1 pkt DAILY 08/30/19 09:00 08/31/19 08:52 1 PKT Sodium Polystyrene Sulfonate (Kayexalate) 30 gm 1X ONCE 08/26/19 18:30 08/26/19 18:32 DC 08/26/19 22:02 30 GM Sodium Bicarbonate (Sodium Bicarb Adult 8.4% Syr) 50 meq 1X ONCE 08/28/19 07:45 08/28/19 07:46 DC 08/28/19 09:31 50 MEQ Lab Laboratory Tests Test 08/30/19 13:50 08/30/19 16:29 08/30/19 20:45 08/31/19 03:50 Prothrombin Time 17.3 SEC (11.7-14.0) Prothromb Time International Ratio 1.5 (0.8-1.1) Sodium Level 130 mmol/L (136-145) 133 mmol/L (136-145) Potassium Level 3.0 mmol/L (3.5-5.1) 3.6 mmol/L (3.5-5.1) Magnesium Level 1.9 mg/dL (1.8-2.4) Glucose (Fingerstick) 84 mg/dL (70-99) 90 mg/dL (70-99) Chloride Level 91 mmol/L (98-107) Carbon Dioxide Level 42 mmol/L (21-32) Anion Gap 0 (6-14) Blood Urea Nitrogen 70 mg/dL (7-20) Creatinine 2.2 mg/dL (0.6-1.0) Estimated GFR (Cockcroft-Gault) 27.2 Glucose Level 67 mg/dL (70-99) Calcium Level 8.1 mg/dL (8.5-10.1) Test 08/31/19 07:27 08/31/19 11:39 Glucose (Fingerstick) 86 mg/dL (70-99) 135 mg/dL (70-99) Results All relevant outside records, renal labs, imaging studies, telemetry/EKG's were reviewed. Justicifation of Admission Dx: Justifications for Admission: Justification of Admission Dx: Yes ALTAGRACIA BLANTON MD Aug 31, 2019 12:01
--- NOTE | 2019-08-31 12:23 | NUR ---
Patients daughter Hallie/DPOA called nurse requesting and update on her mother. Daughter updated, then patient stated that she has been waiting 3 days for the MD to return her call. [employer] Firm Receptionist was patients nurse yesterday, while I was speaking with her MD Elissa was on unit. Daughter was placed on hold and MD Elissa picked up call. MD and daughter had about at 15 minute conversation in regards to the patient. New orders were received after the phone call to make the patient a DNR and goal was to return home with hospice care. Daughter stated that she could not recall that conversation but there were not other needs at this time.
--- NOTE | 2019-08-31 12:41 | PDOC ---
PULMONARY PROGRESS NOTES Subjective on , sob better, has occ cough Vitals Vital Signs Date Time Temp Pulse Resp B/P (MAP) Pulse Ox O2 Delivery O2 Flow Rate FiO2 08/31/19 11:25 97 Nasal Cannula 3.0 08/31/19 11:02 97.5 90 17 133/86 (102) 97.5 ROS: No Nausea General: Alert, No acute distress Lungs: Other (decrease bs) Cardiovascular: S1, S2 Abdomen: Soft, Non-tender Neuro Exam: Alert Extremities: Other (edema) Skin: Warm Labs Laboratory Tests Test 08/29/19 16:40 08/29/19 20:37 08/30/19 04:10 08/30/19 07:26 Glucose (Fingerstick) 59 mg/dL (70-99) 122 mg/dL (70-99) 103 mg/dL (70-99) Sodium Level 128 mmol/L (136-145) Potassium Level 2.5 mmol/L (3.5-5.1) Chloride Level 88 mmol/L (98-107) Carbon Dioxide Level 32 mmol/L (21-32) Anion Gap 8 (6-14) Blood Urea Nitrogen 84 mg/dL (7-20) Creatinine 2.8 mg/dL (0.6-1.0) Estimated GFR (Cockcroft-Gault) 20.6 Glucose Level 108 mg/dL (70-99) Calcium Level 7.7 mg/dL (8.5-10.1) Test 08/30/19 11:08 08/30/19 13:50 08/30/19 16:29 08/30/19 20:45 Glucose (Fingerstick) 94 mg/dL (70-99) 84 mg/dL (70-99) 90 mg/dL (70-99) Prothrombin Time 17.3 SEC (11.7-14.0) Prothromb Time International Ratio 1.5 (0.8-1.1) Sodium Level 130 mmol/L (136-145) Potassium Level 3.0 mmol/L (3.5-5.1) Magnesium Level 1.9 mg/dL (1.8-2.4) Test 08/31/19 03:50 08/31/19 07:27 08/31/19 11:39 Sodium Level 133 mmol/L (136-145) Potassium Level 3.6 mmol/L (3.5-5.1) Chloride Level 91 mmol/L (98-107) Carbon Dioxide Level 42 mmol/L (21-32) Anion Gap 0 (6-14) Blood Urea Nitrogen 70 mg/dL (7-20) Creatinine 2.2 mg/dL (0.6-1.0) Estimated GFR (Cockcroft-Gault) 27.2 Glucose Level 67 mg/dL (70-99) Calcium Level 8.1 mg/dL (8.5-10.1) Glucose (Fingerstick) 86 mg/dL (70-99) 135 mg/dL (70-99) Laboratory Tests Test 08/30/19 13:50 08/30/19 16:29 08/30/19 20:45 08/31/19 03:50 Prothrombin Time 17.3 SEC (11.7-14.0) Prothromb Time International Ratio 1.5 (0.8-1.1) Sodium Level 130 mmol/L (136-145) 133 mmol/L (136-145) Potassium Level 3.0 mmol/L (3.5-5.1) 3.6 mmol/L (3.5-5.1) Magnesium Level 1.9 mg/dL (1.8-2.4) Glucose (Fingerstick) 84 mg/dL (70-99) 90 mg/dL (70-99) Chloride Level 91 mmol/L (98-107) Carbon Dioxide Level 42 mmol/L (21-32) Anion Gap 0 (6-14) Blood Urea Nitrogen 70 mg/dL (7-20) Creatinine 2.2 mg/dL (0.6-1.0) Estimated GFR (Cockcroft-Gault) 27.2 Glucose Level 67 mg/dL (70-99) Calcium Level 8.1 mg/dL (8.5-10.1) Test 08/31/19 07:27 08/31/19 11:39 Glucose (Fingerstick) 86 mg/dL (70-99) 135 mg/dL (70-99) Medications Active Scripts Medications Dose Route/Sig Max Daily Dose Days Date Category Dose Instructions Lasix (Furosemide) 40 Mg Tablet 1 Tab PO DAILY 30 08/07/19 Rx Culturelle (Lactobacillus Rhamnosus Gg) 1 Each Cap.sprink 1 Cap PO BID 30 08/07/19 Rx Levothyroxine Sodium 100 Mcg Tablet 1 Tab PO DAILY 07/25/19 Reported Budesonide 0.5 Mg/2 Ml Ampul.neb 0.5 Mg NEB RTBID 30 07/05/19 Rx Amiodarone Hcl 200 Mg Tablet 200 Mg PO DAILY 30 07/05/19 Rx Proair Hfa (Albuterol Sulfate) 8.5 Gm Hfa.aer.ad 2.5 Mg NEB PRN Q4HRS PRN 30 07/05/19 Rx Duoneb 0.5-3(2.5) Mg/3 Ml (Albuterol/Ipratropium) 3 Ml Ampul.neb 3 Ml NEB RTQID 30 07/05/19 Rx Klor-Con M20 (Potassium Chloride) 20 Meq Tab.er.prt 20 Meq PO BID 04/28/19 Reported NEW PRESCRIPTIONS Eliquis (Apixaban) 2.5 Mg Tablet 2.5 Mg PO BID 60 04/12/19 Rx Metoprolol Tartrate 25 Mg Tablet 25 Mg PO BID 02/13/19 Rx [Nicotine 21MG] 1 PATCH Patch 1 Patch TD PRN DAILY PRN MDD 1 07/25/18 Rx Tessalon Perle (Benzonatate) 100 Mg Capsule 1 Cap PO TID 06/14/18 Rx Flonase Allergy Relief (Fluticasone Propionate) 9.9 Ml [place].susp 2 Sprays NS DAILY 06/14/18 Rx Impression . IMPRESSION: 1. Acute on chronic respiratory failure, multifactorial in etiology, acute systolic/diastolic congestive heart failure, chronic obstructive pulmonary disease with acute exacerbation, volume overload secondary to acute kidney injury. 2. Abnormal chest x-ray. 3. Acute systolic and diastolic congestive heart failure. 4. Acute exacerbation of chronic obstructive pulmonary disease. 5. Acute kidney injury. 6. Chronic kidney disease. 7. Cardiomyopathy. 8. Paroxysmal atrial fibrillation. Plan . PLAN AND RECOMMENDATIONS: 1. Titrate FiO2 to keep O2 saturation 92%. 2. Bronchodilator. 3. Inhaled corticosteroid. 4. Agree with diuretics. nephro following Monitor potassium and creatinine very closely. 5. cxr 08/29 reviewed. CHF, effusion appears to be less on right side.will hold thoracentesis, 6. Cardiology following. on hold amiodarone and Eliquis. 7. The findings and recommendations were discussed with the patient and RN. AMARA MENG MD Aug 31, 2019 12:41
--- NOTE | 2019-08-31 14:56 | PDOC ---
PROGRESS NOTES Chief Complaint Chief Complaint A/P: Hyperkalemia -improved Acute systolic and diastolic heart failure -will follow recommendations from financial operations consultant regarding diuresis, will continue with Lasix 40 mg and reassess in the a.m. her volume status and hopefully discharge home with referrals for a hospice consult Hypothermia - improved with warming blanket Hypoglycemia - no DM2 history. We will continue to follow we will stop D5 normal saline Acute kidney injury - on CKD - likely vasomotor nephropathy vs cardiorenal syndrome. She and her daughter refuse dialysis, this is appropriate given her chronic conditions Acute hypoxic respiratory failure, multifactorial - CHF, COPD, Acute chronic obstructive pulmonary disease exacerbation. Paroxysmal atrial flutter/fibrillation. Hypothyroidism acquired status post thyroidectomy. Anemia. CAD Dementia - likely vascular with prior TIAs GERD Hyperlipidemia Hypertension Macrocytosis - UTIs Chronic pain Previous tobacco abuse. Moderate aortic regurgitation FEN - Cardiac diet, PPX - eliquis DNR Dispo - inpatient 2 midnights History of Present Illness History of Present Illness Ms Levin is a 64 yo F w/ PMHx COPD, severe cardiomyopathy, CHF EF 40-45%, coronary artery disease, HLD, GERD, paroxysmal afib, ex-smoker who was brought to ED from home where she lives with her daughter by EMS in respiratory distress with swelling and chest discomfort, She was discharged earlier this year to SNF and was on the ventilator earlier this year. Last hospital stay she was discharged home with home health. recently here on 08/02/2019 for heart failure and hypoxia. Her COVID test at that time was negative She had not felt well for the past few days. She does have cough with some sputum production. Elevated potassium of 6.3 and a BUN of 91 and a creatinine of 3.5. Have contacted her daughter Hallie, and she is made it clear that her mother is requested not to be back on a ventilator. [facility] has asked that we give her "1 more time" if she has cardiac or respiratory arrest. She notes the reason she revoked hospice as she was not comfortable with her mother receiving morphine for pain and for shortness of breath and felt like it was slowly killing her. Consults: Cardiology, Pulmonary and Nephrology. 08/26: Glucose of 15. D50 given x1 ampule with increase to 63, but now persistently low, will change to D10 infusion 08/27: Overnight was transferred to ICU on D10 GTT, glucose came up into the 600s was transferred back to med telemetry. Temp 93 F overnight. Care order placed and D10 continued glucose 60 this morning BUN 99. Creatinine 4.1. More alert today, no complaints. 08/28:Temp normalized. Glucose in 140s. BUN 90, Cr 3.5. Na 130, K 3. AST and ALT now in 100s. UOP 1250 yesterday, stopped lasix. More alert today. 08/29: Patient had 3-second pauses and presented bradycardia temporarily. pension consultant recommendations greatly appreciated currently with beta- blockers on hold. I have discussed the plan of care with patient's daughter and we discussed CODE STATUS as well. Daughter now leaning towards allowing patient to have a natural we discussed CODE STATUS which Ms. Purcell has expressed on numerous occasions not only on this hospital stay. She does not want resuscitation maneuvers I have expressed wishes to daughter who is power of compliance attorney and she has agreed to transition to DNR if she hears it from her mother. We discussed hospice as well as a potential plan of care moving forward given her multiple comorbidities and she has agreed to a consultation once she gets discharged home 08/30: No acute events reported overnight, case discussed with nursing staff patient in no acute distress no complaints during my visit, shortness of breath has definitely improved and edema as well, we will continue with diuresis for the next 24 hours Vitals Vitals Vital Signs Date Time Temp Pulse Resp B/P (MAP) Pulse Ox O2 Delivery O2 Flow Rate FiO2 08/31/19 11:25 97 Nasal Cannula 3.0 08/31/19 11:02 97.5 90 17 133/86 (102) 97.5 Physical Exam Physical Exam General: Alert, Cooperative, No acute distress Heart: Regular rate (SB 40s), Other (distant heart sounds) Lungs: Wheezing, Crackles, Other Abdomen: Soft, Other (anasarca) Extremities: Other (anasarca) Skin: No breakdown General: Alert, Cooperative, No acute distress Heart: Regular rate (SB 40s), Other (distant heart sounds) Lungs: Other (decrease bs) Abdomen: Soft, Other (anasarca) Extremities: Other (anasarca) Skin: No breakdown Labs LABS Laboratory Tests Test 08/30/19 16:29 08/30/19 20:45 08/31/19 03:50 08/31/19 07:27 Glucose (Fingerstick) 84 mg/dL (70-99) 90 mg/dL (70-99) 86 mg/dL (70-99) Sodium Level 133 mmol/L (136-145) Potassium Level 3.6 mmol/L (3.5-5.1) Chloride Level 91 mmol/L (98-107) Carbon Dioxide Level 42 mmol/L (21-32) Anion Gap 0 (6-14) Blood Urea Nitrogen 70 mg/dL (7-20) Creatinine 2.2 mg/dL (0.6-1.0) Estimated GFR (Cockcroft-Gault) 27.2 Glucose Level 67 mg/dL (70-99) Calcium Level 8.1 mg/dL (8.5-10.1) Test 08/31/19 11:39 Glucose (Fingerstick) 135 mg/dL (70-99) Assessment and Plan Assessmemt and Plan Problems Medical Problems: (1) CHF exacerbation Status: Acute (2) Hyperkalemia Status: Acute Comment Review of Relevant I have reviewed the following items suad (where applicable) has been applied. Labs Laboratory Tests Test 08/29/19 16:40 08/29/19 20:37 08/30/19 04:10 08/30/19 07:26 Glucose (Fingerstick) 59 mg/dL (70-99) 122 mg/dL (70-99) 103 mg/dL (70-99) Sodium Level 128 mmol/L (136-145) Potassium Level 2.5 mmol/L (3.5-5.1) Chloride Level 88 mmol/L (98-107) Carbon Dioxide Level 32 mmol/L (21-32) Anion Gap 8 (6-14) Blood Urea Nitrogen 84 mg/dL (7-20) Creatinine 2.8 mg/dL (0.6-1.0) Estimated GFR (Cockcroft-Gault) 20.6 Glucose Level 108 mg/dL (70-99) Calcium Level 7.7 mg/dL (8.5-10.1) Test 08/30/19 11:08 08/30/19 13:50 08/30/19 16:29 08/30/19 20:45 Glucose (Fingerstick) 94 mg/dL (70-99) 84 mg/dL (70-99) 90 mg/dL (70-99) Prothrombin Time 17.3 SEC (11.7-14.0) Prothromb Time International Ratio 1.5 (0.8-1.1) Sodium Level 130 mmol/L (136-145) Potassium Level 3.0 mmol/L (3.5-5.1) Magnesium Level 1.9 mg/dL (1.8-2.4) Test 08/31/19 03:50 08/31/19 07:27 08/31/19 11:39 Sodium Level 133 mmol/L (136-145) Potassium Level 3.6 mmol/L (3.5-5.1) Chloride Level 91 mmol/L (98-107) Carbon Dioxide Level 42 mmol/L (21-32) Anion Gap 0 (6-14) Blood Urea Nitrogen 70 mg/dL (7-20) Creatinine 2.2 mg/dL (0.6-1.0) Estimated GFR (Cockcroft-Gault) 27.2 Glucose Level 67 mg/dL (70-99) Calcium Level 8.1 mg/dL (8.5-10.1) Glucose (Fingerstick) 86 mg/dL (70-99) 135 mg/dL (70-99) Laboratory Tests Test 08/30/19 16:29 08/30/19 20:45 08/31/19 03:50 08/31/19 07:27 Glucose (Fingerstick) 84 mg/dL (70-99) 90 mg/dL (70-99) 86 mg/dL (70-99) Sodium Level 133 mmol/L (136-145) Potassium Level 3.6 mmol/L (3.5-5.1) Chloride Level 91 mmol/L (98-107) Carbon Dioxide Level 42 mmol/L (21-32) Anion Gap 0 (6-14) Blood Urea Nitrogen 70 mg/dL (7-20) Creatinine 2.2 mg/dL (0.6-1.0) Estimated GFR (Cockcroft-Gault) 27.2 Glucose Level 67 mg/dL (70-99) Calcium Level 8.1 mg/dL (8.5-10.1) Test 08/31/19 11:39 Glucose (Fingerstick) 135 mg/dL (70-99) Medications Current Medications Calcium Gluconate (Calcium Gluconate) 1,000 mg 1X ONCE IVP Last administered on 08/26/19at 18:58; Start 08/26/19 at 18:30; Stop 08/26/19 at 18:32; Status DC Sodium Bicarbonate (Sodium Bicarb Adult 8.4% Syr) 50 meq 1X ONCE IV Last administered on 08/26/19at 19:08; Start 08/26/19 at 18:30; Stop 08/26/19 at 18:32; Status DC Dextrose (Dextrose 50%-Water Syringe) 25 gm 1X ONCE IV Last administered on 08/26/19at 19:01; Start 08/26/19 at 18:30; Stop 08/26/19 at 18:32; Status DC Insulin Human Regular (HumuLIN R VIAL) 10 unit 1X ONCE IV Last administered on 08/26/19at 19:07; Start 08/26/19 at 18:30; Stop 08/26/19 at 18:32; Status DC Sodium Polystyrene Sulfonate (Kayexalate) 30 gm 1X ONCE PO Last administered on 08/26/19at 22:02; Start 08/26/19 at 18:30; Stop 08/26/19 at 18:32; Status DC Furosemide (Lasix) 80 mg 1X ONCE IVP Last administered on 08/26/19at 19:10; Start 08/26/19 at 18:45; Stop 08/26/19 at 18:48; Status DC Fentanyl Citrate (Fentanyl 2ml Vial) 50 mcg 1X ONCE IVP Last administered on 08/26/19at 18:57; Start 08/26/19 at 19:00; Stop 08/26/19 at 19:01; Status DC Ondansetron HCl (Zofran) 4 mg PRN Q8HRS PRN IV NAUSEA/VOMITING; Start 08/26/19 at 19:00; Stop 08/27/19 at 10:15; Status DC Fentanyl Citrate (Fentanyl 2ml Vial) 50 mcg PRN Q1HR PRN IV PAIN; Start 08/26/19 at 19:00; Stop 08/27/19 at 18:59; Status DC Dextrose (Dextrose 50%-Water Syringe) 25 gm 1X ONCE IV ; Start 08/26/19 at 22:30; Stop 08/26/19 at 22:31; Status DC Ondansetron HCl (Zofran) 4 mg PRN Q4HRS PRN IV NAUSEA/VOMITING; Start 08/27/19 at 10:15 Albuterol Sulfate (Ventolin Neb Soln) 2.5 mg PRN Q4HRS PRN NEB SHORTNESS OF BREATH; Start 08/27/19 at 10:15 Amiodarone HCl (Cordarone) 200 mg DAILY PO ; Start 08/27/19 at 11:00; Stop 08/27/19 at 13:50; Status DC Apixaban (Eliquis) 2.5 mg BID PO ; Start 08/27/19 at 11:00; Stop 08/27/19 at 13:47; Status DC Benzonatate (Tessalon Perle) 100 mg TID PO Last administered on 08/31/19at 08:52; Start 08/27/19 at 11:00 Budesonide (Pulmicort) 0.5 mg RTBID NEB Last administered on 08/31/19at 07:27; Start 08/27/19 at 20:00 Albuterol/ Ipratropium (Duoneb) 3 ml RTQID NEB Last administered on 08/31/19at 11:24; Start 08/27/19 at 12:00 Lactobacillus Rhamnosus (Culturelle) 1 cap BID PO Last administered on 08/31/19at 08:52; Start 08/27/19 at 21:00 Levothyroxine Sodium (Synthroid) 100 mcg DAILY06 PO Last administered on 08/31/19at 06:08; Start 08/27/19 at 10:30 Metoprolol Tartrate (Lopressor) 25 mg BID PO Last administered on 08/30/19at 20:49; Start 08/27/19 at 11:00 Nicotine (Nicoderm Cq 21mg) 1 patch PRN DAILY PRN TD SMOKING CESSATION; Start 08/27/19 at 09:00 Furosemide (Lasix) 40 mg BID92 IVP Last administered on 08/28/19at 15:32; Start 08/27/19 at 14:00; Stop 08/28/19 at 14:01; Status DC Dextrose (Dextrose 50%-Water Syringe) 25 gm STK-MED ONCE IV ; Start 08/27/19 at 10:18; Stop 08/27/19 at 10:18; Status DC Dextrose (Dextrose 50%-Water Syringe) 25 gm STK-MED ONCE IV ; Start 08/27/19 at 10:25; Stop 08/27/19 at 10:26; Status DC Dextrose (Dextrose 50%-Water Syringe) 12.5 gm PRN Q15MIN PRN IV SEE COMMENTS Last administered on 08/28/19at 06:32; Start 08/27/19 at 10:45 Dextrose 500 ml @ 50 mls/hr 1X ONCE IV ; Start 08/27/19 at 10:45; Stop 08/27/19 at 11:03; Status DC Dextrose 500 ml @ 75 mls/hr Q6H40M IV ; Start 08/27/19 at 10:45; Stop 08/27/19 at 11:03; Status DC Dextrose 1,000 ml @ 100 mls/hr Q10H IV ; Start 08/27/19 at 11:15; Stop 08/27/19 at 18:06; Status DC Aspirin (Ecotrin) 81 mg DAILYWBKFT PO Last administered on 08/31/19at 08:52; Start 08/28/19 at 08:00 Dextrose 1,000 ml @ 100 mls/hr Q10H IV Last administered on 08/30/19at 07:15; Start 08/27/19 at 21:45; Stop 08/30/19 at 11:04; Status DC Dextrose 1,000 ml @ 20 mls/hr Q24H ONCE IV Last administered on 08/28/19at 06:32; Start 08/27/19 at 22:00; Stop 08/28/19 at 21:59; Status DC Sodium Bicarbonate (Sodium Bicarb Adult 8.4% Syr) 50 meq 1X ONCE IV Last administered on 08/28/19at 09:31; Start 08/28/19 at 07:45; Stop 08/28/19 at 07:46; Status DC Polyethylene Glycol (miraLAX PACKET) 17 gm DAILY PO Last administered on 08/31/19at 08:52; Start 08/30/19 at 09:00 Psyllium Hydrophilic Mucilloid (Metamucil Fiber Packet) 1 pkt DAILY PO Last administered on 08/31/19at 08:52; Start 08/30/19 at 09:00 Docusate Sodium (Colace) 100 mg PRN DAILY PRN PO HARD STOOLS Last administered on 08/29/19at 16:20; Start 08/29/19 at 15:00 Lactulose (Lactulose) 20 gm PRN DAILY PRN PO CONSTIPATION; Start 08/29/19 at 15:00 Potassium Chloride/Water 100 ml @ 100 mls/hr Q1H IV Last administered on at 07:15; Start 08/30/19 at 06:00; Stop 08/30/19 at 07:59; Status DC Dextrose/Sodium Chloride 1,000 ml @ 100 mls/hr Q10H IV Last administered on 08/30/19at 10:00; Start 08/30/19 at 10:00; Stop 08/30/19 at 16:28; Status DC Potassium Chloride/Water 100 ml @ 50 mls/hr 1X ONCE IV Last administered on 08/30/19at 15:00; Start 08/30/19 at 15:00; Stop 08/30/19 at 16:59; Status DC Potassium Chloride/Water 100 ml @ 50 mls/hr Q2H IV ; Start 08/30/19 at 18:00; Stop 08/30/19 at 16:28; Status DC Potassium Bicarbonate (Potassium Effervescent Tablet) 40 meq Q2HR PO Last administered on 08/30/19at 20:49; Start 08/30/19 at 18:00; Stop 08/30/19 at 20:01; Status DC Furosemide (Lasix) 40 mg DAILY PO Last administered on 08/31/19at 08:52; Start 08/31/19 at 09:00 Furosemide (Lasix) 80 mg 1X ONCE PO Last administered on 08/30/19at 17:11; Start 08/30/19 at 16:45; Stop 08/30/19 at 16:46; Status DC Active Scripts Active Lasix (Furosemide) 40 Mg Tablet 1 Tab PO DAILY 30 Days Culturelle (Lactobacillus Rhamnosus Gg) 1 Each Cap.sprink 1 Cap PO BID 30 Days Budesonide 0.5 Mg/2 Ml Ampul.neb 0.5 Mg NEB RTBID 30 Days Amiodarone Hcl 200 Mg Tablet 200 Mg PO DAILY 30 Days Proair Hfa (Albuterol Sulfate) 8.5 Gm Hfa.aer.ad 2.5 Mg NEB PRN Q4HRS PRN 30 Days Duoneb 0.5-3(2.5) Mg/3 Ml (Albuterol/Ipratropium) 3 Ml Ampul.neb 3 Ml NEB RTQID 30 Days Eliquis (Apixaban) 2.5 Mg Tablet 2.5 Mg PO BID 60 Days Metoprolol Tartrate 25 Mg Tablet 25 Mg PO BID [Nicotine 21MG] 1 PATCH Patch 1 Patch TD PRN DAILY PRN MDD 1 Tessalon Perle (Benzonatate) 100 Mg Capsule 1 Cap PO TID Flonase Allergy Relief (Fluticasone Propionate) 9.9 Ml [place].susp 2 Sprays NS DAILY Reported Levothyroxine Sodium 100 Mcg Tablet 1 Tab PO DAILY Klor-Con M20 (Potassium Chloride) 20 Meq Tab.er.prt 20 Meq PO BID NEW PRESCRIPTIONS Vitals/I & O Vital Sign - Last 24 Hours 08/30/19 08/30/19 08/30/19 08/30/19 14:59 16:02 19:44 20:00 Temp 96.6 97.7 96.6 97.7 Pulse 85 91 Resp 17 20 B/P (MAP) 128/68 (88) 128/94 (105) Pulse Ox 95 100 O2 Delivery Nasal Cannula Nasal Cannula Nasal Cannula Nasal Cannula O2 Flow Rate 3.0 3.0 3.0 3.0 08/30/19 08/30/19 08/30/19 08/31/19 20:07 20:49 23:29 03:40 Temp 97.6 97.1 97.6 97.1 Pulse 91 87 98 Resp 16 20 B/P (MAP) 128/94 97/68 (78) 113/69 (84) Pulse Ox 97 98 O2 Delivery Nasal Cannula Nasal Cannula Nasal Cannula O2 Flow Rate 3.0 3.0 3.0 08/31/19 08/31/19 08/31/19 08/31/19 07:25 07:48 08:00 11:02 Temp 97.0 97.5 97.0 97.5 Pulse 88 90 Resp 16 17 B/P (MAP) 113/78 (90) 133/86 (102) Pulse Ox 100 100 97 O2 Delivery Nasal Cannula Nasal Cannula Nasal Cannula Nasal Cannula O2 Flow Rate 3.0 3.0 3.0 3.0 08/31/19 11:25 Pulse Ox 97 O2 Delivery Nasal Cannula O2 Flow Rate 3.0 Intake and Output 08/30/19 08/30/19 08/31/19 15:00 23:00 07:00 Output Total 1800 ml 1650 ml Balance -1800 ml -1650 ml CHENG BRUNO MD Aug 31, 2019 14:56
[2019-08-31 15:04] VITALS: BP 113/66
[2019-08-31] MEDS ORDERED: METOPROLOL TARTRATE 5 MG/5 ML VIAL. IVP SCH (17:00)
[2019-08-31] MEDS ORDERED: METOPROLOL TARTRATE 5 MG/5 ML VIAL. IVP PRN (18:00)
[2019-08-31] MEDS ORDERED: METOPROLOL TART IMMED RELEASE 25 MG TABLET. PO PRN (18:15)
[2019-08-31 19:41] VITALS: BP 106/64
[2019-08-31 23:23] VITALS: BP 118/66
[2019-09-01 03:21] VITALS: BP 94/60
[2019-09-01] MEDS ORDERED: HYDROcodone/APAP 5/325MG 1 TAB TABLET PO PRN (04:00)
[2019-09-01] MEDS: LEVOTHYROXINE 100 MCG TABLET PO SCH (06:26)
[2019-09-01 07:00] VITALS: BP 120/70
[2019-09-01] MEDS: IPRATRPIUM/ALBUTEROL 0.5/2.5MG 3 ML NEBU. NEB SCH ×2 (07:34→11:05)
[2019-09-01] MEDS: BUDESONIDE 0.5 MG/2 ML NEBU. NEB SCH (07:34)
[2019-09-01] MEDS: POLYETHYLENE GLYCOL 3350 17 GM PACKET. PO SCH (09:00)
[2019-09-01] MEDS: PSYLLIUM HUSK (SUGAR FREE) 1 PKT PACKET PO SCH (09:00)
--- NOTE | 2019-09-01 09:11 | PDOC ---
SUBJECTIVE ROS stable OBJECTIVE Vital Signs Vital Signs Date Time Temp Pulse Resp B/P (MAP) Pulse Ox O2 Delivery O2 Flow Rate FiO2 09/01/19 07:35 100 Nasal Cannula 3.0 09/01/19 07:00 97.9 77 17 120/70 (87) 97.9 I & 0 Intake and Output0 09/01/19 07:00 Intake Total 330 ml Output Total 1700 ml Balance -1370 ml Intake Oral 330 ml Output Urine Total 1700 ml # Voids 2 PHYSICAL EXAM Physical Exam GEN NAD HEENT: OM moist Neck supple LUNGS: diminished bases, non labored Heart: irregularly irregular (AFIB- rate controlled) Abdomen: Soft N/T Extremities: No LE edema Neurology: alert, oriented, follow commands No alex Skin No rash DIAGNOSIS/ASSESSMENT Assessment & Plan NEGRITO-ATN , multiple Hospitalizations Per Dr. Carter's initial Eval Pt is not a candidate for HD Currently asymptomatic, renal function IMPROVING was on IV Diuretics, dced , supportive care, avoid nephrotoxins [id number] - resolved HypoKalemia- replace as indicated CKD stage 3- Cr 1.5 HyperKalemia - was on K supplements Acute on Chronic CHF - currently compensated Ac Resp failure- stable, On RA Anemia PAROXYSMAL AFIB- Per Card COMMENT/RELEVANT DATA Meds Current Medications Medications (Trade) Dose Ordered Sig/Karen Start Time Stop Time Status Last Admin Dose Admin Acetaminophen/ Hydrocodone Bitart (Lortab 5/325) 1 tab PRN Q4HRS PRN 09/01/19 04:00 09/01/19 04:29 1 TAB Albuterol Sulfate (Ventolin Neb Soln) 2.5 mg PRN Q4HRS PRN 08/27/19 10:15 Albuterol/ Ipratropium (Duoneb) 3 ml RTQID 08/27/19 12:00 09/01/19 07:34 3 ML Amiodarone HCl (Cordarone) 200 mg DAILY 08/27/19 11:00 08/27/19 13:50 DC Apixaban (Eliquis) 2.5 mg BID 08/27/19 11:00 08/27/19 13:47 DC Aspirin (Ecotrin) 81 mg DAILYWBKFT 08/28/19 08:00 08/31/19 08:52 81 MG Benzonatate (Tessalon Perle) 100 mg TID 08/27/19 11:00 08/31/19 21:05 100 MG Budesonide (Pulmicort) 0.5 mg RTBID 08/27/19 20:00 09/01/19 07:34 0.5 MG Calcium Gluconate (Calcium Gluconate) 1,000 mg 1X ONCE 08/26/19 18:30 08/26/19 18:32 DC 08/26/19 18:58 1,000 MG Dextrose 1,000 ml @ 20 mls/hr Q24H ONCE 08/27/19 22:00 08/28/19 21:59 DC 08/28/19 06:32 20 MLS/HR Dextrose (Dextrose 50%-Water Syringe) 12.5 gm PRN Q15MIN PRN 08/27/19 10:45 08/28/19 06:32 12.5 GM Dextrose/Sodium Chloride 1,000 ml @ 100 mls/hr Q10H 08/30/19 10:00 08/30/19 16:28 DC 08/30/19 10:00 100 MLS/HR Docusate Sodium (Colace) 100 mg PRN DAILY PRN 08/29/19 15:00 08/29/19 16:20 100 MG Fentanyl Citrate (Fentanyl 2ml Vial) 50 mcg PRN Q1HR PRN 08/26/19 19:00 08/27/19 18:59 DC Furosemide (Lasix) 80 mg 1X ONCE 08/30/19 16:45 08/30/19 16:46 DC 08/30/19 17:11 80 MG Insulin Human Regular (HumuLIN R VIAL) 10 unit 1X ONCE 08/26/19 18:30 08/26/19 18:32 DC 08/26/19 19:07 10 UNIT Lactobacillus Rhamnosus (Culturelle) 1 cap BID 08/27/19 21:00 08/31/19 21:05 1 CAP Lactulose (Lactulose) 20 gm PRN DAILY PRN 08/29/19 15:00 Levothyroxine Sodium (Synthroid) 100 mcg DAILY06 08/27/19 10:30 09/01/19 06:26 100 MCG Metoprolol Tartrate (Lopressor Vial) 5 mg PRN Q6HRS PRN 08/31/19 18:00 Metoprolol Tartrate (Lopressor) 25 mg PRN Q6HRS PRN 08/31/19 18:15 08/31/19 18:26 25 MG Nicotine (Nicoderm Cq 21mg) 1 patch PRN DAILY PRN 08/27/19 09:00 Ondansetron HCl (Zofran) 4 mg PRN Q4HRS PRN 08/27/19 10:15 Polyethylene Glycol (miraLAX PACKET) 17 gm DAILY 08/30/19 09:00 08/31/19 08:52 17 GM Potassium Bicarbonate (Potassium Effervescent Tablet) 40 meq Q2HR 08/30/19 18:00 08/30/19 20:01 DC 08/30/19 20:49 40 MEQ Potassium Chloride/Water 100 ml @ 50 mls/hr Q2H 08/30/19 18:00 08/30/19 16:28 DC Psyllium Hydrophilic Mucilloid (Metamucil Fiber Packet) 1 pkt DAILY 08/30/19 09:00 08/31/19 08:52 1 PKT Sodium Polystyrene Sulfonate (Kayexalate) 30 gm 1X ONCE 08/26/19 18:30 08/26/19 18:32 DC 08/26/19 22:02 30 GM Sodium Bicarbonate (Sodium Bicarb Adult 8.4% Syr) 50 meq 1X ONCE 08/28/19 07:45 08/28/19 07:46 DC 08/28/19 09:31 50 MEQ Lab Laboratory Tests Test 08/31/19 11:39 08/31/19 16:21 08/31/19 20:38 Glucose (Fingerstick) 135 mg/dL (70-99) 135 mg/dL (70-99) 81 mg/dL (70-99) Results All relevant outside records, renal labs, imaging studies, telemetry/EKG's were reviewed. Justicifation of Admission Dx: Justifications for Admission: Justification of Admission Dx: Yes ALTAGRACIA BLANTON MD Sep 01, 2019 09:11
[2019-09-01] MEDS: BENZONATATE 100 MG CAPSULE. PO SCH (09:13)
[2019-09-01] MEDS: ASPIRIN ENTERIC COATED 81 MG TABLET.DR. PO SCH (09:13)
[2019-09-01] MEDS: FUROSEMIDE 40 MG TABLET. PO SCH (09:13)
[2019-09-01] MEDS: LACTOBACILLUS RHAMNOSUS GG 1 CAPSULE. PO SCH (09:13)
[2019-09-01] MEDS ORDERED: POLY17PO28 PO (10:13)
--- NOTE | 2019-09-01 10:14 | SNU/HH DC ---
DISCHARGE ORDERS DISCHARGE INFORMATION: DISCHARGE DATE: Sep 01, 2019 FINAL DIAGNOSIS Problems Medical Problems: (1) CHF exacerbation Status: Acute (2) Hyperkalemia Status: Acute CONDITION ON DISCHARGE: Stable CODE STATUS: Code Status: DNR/DNI HOSPICE: HOSPICE EVAL & TREAT: Yes POST DISCHARGE ORDERS: ACTIVITY ORDERS: Activity as tolerated WEIGHT BEARING STATUS: As tolerated BATHING ORDERS: No Tub Bath until see DIET AFTER DISCHARGE: Cardiac WOUND/INCISION CARE: Other, see below CHECKS AFTER DISCHARGE: CHECKS AFTER DISCHARGE: Check blood press - daily, Weigh Yourself Daily TREATMENT/EQUIPMENT ORDERS: ADAPTIVE EQUIPMENT NEEDED: None RESPIRATORY EQUIPMENT NEEDED: Nebulizer Physical Therapy For: Evalulation/Treatment Occupational Therapy For: Evaluation/Treatment Speech Language Pathology For: Evaluation/Treatment DISCHARGE MEDICATIONS: Home Meds Active Scripts Polyethylene Glycol 3350 (POLYETHYLENE GLYCOL 3350) 17 Gm Powd.pack, 17 GM PO DAILY for constipation for 30 Days, #30 PKT Prov:CHENG BRUNO MD 09/01/19 Furosemide (LASIX) 40 Mg Tablet, 1 TAB PO DAILY for CHF for 30 Days, #30 TAB 0 Refills Prov:CHENG BRUNO MD 08/07/19 Lactobacillus Rhamnosus Gg (CULTURELLE) 1 Each Cap.sprink, 1 CAP PO BID for probiotic for 30 Days, #60 CAP Prov:CHENG BRUNO MD 08/07/19 Budesonide (BUDESONIDE) 0.5 Mg/2 Ml Ampul.neb, 0.5 MG NEB RTBID for LUNGS for 30 Days, #60 EACH Prov:RUPERTO BAHENA MD 07/05/19 Albuterol Sulfate (Proair Hfa) 8.5 Gm Hfa.aer.ad, 2.5 MG NEB PRN Q4HRS PRN for SHORTNESS OF BREATH for 30 Days, #60 EACH Prov:RUPERTO BAHENA MD 07/05/19 Ipratropium/Albuterol Sulfate (DUONEB 0.5-3(2.5) MG/3 ML) 3 Ml Ampul.neb, 3 ML NEB RTQID for COUGH, SOA for 30 Days, #120 EACH Prov:RUPERTO BAHENA MD 07/05/19 Apixaban (ELIQUIS) 2.5 Mg Tablet, 2.5 MG PO BID for permanent a fib for 60 Days, #120 TAB Prov:TERMULO,SANJUANITA Y MD 04/12/19 Metoprolol Tartrate (METOPROLOL TARTRATE) 25 Mg Tablet, 25 MG PO BID for htn, hyperthyroid, #60 TAB Prov:SANJUANITA PEÑA MD 02/13/19 [Nicotine 21MG] 1 PATCH PATCH No Conflict Check, 1 PATCH TD PRN DAILY PRN for SMOKING CESSATION MDD 1, #14 Prov:SANJUANITA PEÑA MD 07/25/18 Benzonatate (TESSALON PERLE) 100 Mg Capsule, 1 CAP PO TID, #30 CAP Prov:PRO LLOYD APRN 06/14/18 Fluticasone Propionate (Flonase Allergy Relief) 9.9 Ml [place].susp, 2 SPRAYS NS DAILY, #1 BOTTLE Prov:PRO LLOYD APRN 06/14/18 Reported Medications Levothyroxine Sodium (LEVOTHYROXINE SODIUM) 100 Mcg Tablet, 1 TAB PO DAILY for hypothyroid, #30 TAB 5 Refills 07/25/19 Potassium Chloride (KLOR-CON M20) 20 Meq Tab.er.prt, 20 MEQ PO BID for POTASSIUM, TAB.SR NEW PRESCRIPTIONS 04/28/19 Discontinued Scripts Amiodarone Hcl (AMIODARONE HCL) 200 Mg Tablet, 200 MG PO DAILY for HEART RHYTHM for 30 Days, #30 TAB Prov:RUPERTO BAHENA MD 07/05/19 CHENG BRUNO MD Sep 01, 2019 10:14
[2019-09-01 11:00] VITALS: BP 125/63
--- NOTE | 2019-09-01 11:03 | PDOC ---
PULMONARY PROGRESS NOTES Subjective on 02, sob better, has occ cough Vitals Vital Signs Date Time Temp Pulse Resp B/P (MAP) Pulse Ox O2 Delivery O2 Flow Rate FiO2 09/01/19 07:35 100 Nasal Cannula 3.0 09/01/19 07:00 97.9 77 17 120/70 (87) 97.9 ROS: No Nausea General: Alert, No acute distress Lungs: Other (decrease bs) Cardiovascular: S1, S2 Abdomen: Soft, Non-tender Neuro Exam: Alert Extremities: Other (edema) Skin: Warm Labs Laboratory Tests Test 08/30/19 11:08 08/30/19 13:50 08/30/19 16:29 08/30/19 20:45 Glucose (Fingerstick) 94 mg/dL (70-99) 84 mg/dL (70-99) 90 mg/dL (70-99) Prothrombin Time 17.3 SEC (11.7-14.0) Prothromb Time International Ratio 1.5 (0.8-1.1) Sodium Level 130 mmol/L (136-145) Potassium Level 3.0 mmol/L (3.5-5.1) Magnesium Level 1.9 mg/dL (1.8-2.4) Test 08/31/19 03:50 08/31/19 07:27 08/31/19 11:39 08/31/19 16:21 Sodium Level 133 mmol/L (136-145) Potassium Level 3.6 mmol/L (3.5-5.1) Chloride Level 91 mmol/L (98-107) Carbon Dioxide Level 42 mmol/L (21-32) Anion Gap 0 (6-14) Blood Urea Nitrogen 70 mg/dL (7-20) Creatinine 2.2 mg/dL (0.6-1.0) Estimated GFR (Cockcroft-Gault) 27.2 Glucose Level 67 mg/dL (70-99) Calcium Level 8.1 mg/dL (8.5-10.1) Glucose (Fingerstick) 86 mg/dL (70-99) 135 mg/dL (70-99) 135 mg/dL (70-99) Test 08/31/19 20:38 Glucose (Fingerstick) 81 mg/dL (70-99) Laboratory Tests Test 08/31/19 11:39 08/31/19 16:21 08/31/19 20:38 Glucose (Fingerstick) 135 mg/dL (70-99) 135 mg/dL (70-99) 81 mg/dL (70-99) Medications Active Scripts Medications Dose Route/Sig Max Daily Dose Days Date Category Dose Instructions Lasix (Furosemide) 40 Mg Tablet 1 Tab PO DAILY 30 08/07/19 Rx Culturelle (Lactobacillus Rhamnosus Gg) 1 Each Cap.sprink 1 Cap PO BID 30 08/07/19 Rx Levothyroxine Sodium 100 Mcg Tablet 1 Tab PO DAILY 07/25/19 Reported Budesonide 0.5 Mg/2 Ml Ampul.neb 0.5 Mg NEB RTBID 30 07/05/19 Rx Amiodarone Hcl 200 Mg Tablet 200 Mg PO DAILY 30 07/05/19 Rx Proair Hfa (Albuterol Sulfate) 8.5 Gm Hfa.aer.ad 2.5 Mg NEB PRN Q4HRS PRN 30 07/05/19 Rx Duoneb 0.5-3(2.5) Mg/3 Ml (Albuterol/Ipratropium) 3 Ml Ampul.neb 3 Ml NEB RTQID 30 07/05/19 Rx Klor-Con M20 (Potassium Chloride) 20 Meq Tab.er.prt 20 Meq PO BID 04/28/19 Reported NEW PRESCRIPTIONS Eliquis (Apixaban) 2.5 Mg Tablet 2.5 Mg PO BID 60 04/12/19 Rx Metoprolol Tartrate 25 Mg Tablet 25 Mg PO BID 02/13/19 Rx [Nicotine 21MG] 1 PATCH Patch 1 Patch TD PRN DAILY PRN MDD 1 07/25/18 Rx Tessalon Perle (Benzonatate) 100 Mg Capsule 1 Cap PO TID 06/14/18 Rx Flonase Allergy Relief (Fluticasone Propionate) 9.9 Ml [place].susp 2 Sprays NS DAILY 06/14/18 Rx Impression . IMPRESSION: 1. Acute on chronic respiratory failure, multifactorial in etiology, acute systolic/diastolic congestive heart failure, chronic obstructive pulmonary disease with acute exacerbation, volume overload secondary to acute kidney injury. 2. Abnormal chest x-ray. 3. Acute systolic and diastolic congestive heart failure. 4. Acute exacerbation of chronic obstructive pulmonary disease. 5. Acute kidney injury. 6. Chronic kidney disease. 7. Cardiomyopathy. 8. Paroxysmal atrial fibrillation. Plan . 1. Titrate FiO2 to keep O2 saturation 92%. 2. Bronchodilator. 3. Inhaled corticosteroid. 4. Agree with diuretics. nephro following Monitor potassium and creatinine very closely. 5. cxr 08/29 reviewed. CHF, effusion appears to be less on right side.will hold thoracentesis, 6. Cardiology following. on hold amiodarone and Eliquis. 7. The findings and recommendations were discussed with the patient and RN. hospice eval undergoing AMARA MENG MD Sep 01, 2019 11:03
--- NOTE | 2019-09-01 11:29 | PDOC ---
CARDIO Progress Notes Date and Time Date of Service 09/01/2019 Time of Evaluation 0940 Subjective Subjective: No Chest Pain, No shortness of breath, No Palpitations Vitals Vitals Vital Signs Date Time Temp Pulse Resp B/P (MAP) Pulse Ox O2 Delivery O2 Flow Rate FiO2 09/01/19 11:06 98 Nasal Cannula 2.0 09/01/19 07:00 97.9 77 17 120/70 (87) 97.9 Weight Weight [ ] Input and Output Intake and Output Intake and Output 09/01/19 07:00 Intake Total 330 ml Output Total 1700 ml Balance -1370 ml Intake Oral 330 ml Output Urine Total 1700 ml # Voids 2 Laboratory Labs Laboratory Tests Test 08/31/19 11:39 08/31/19 16:21 08/31/19 20:38 Glucose (Fingerstick) 135 mg/dL (70-99) 135 mg/dL (70-99) 81 mg/dL (70-99) Physical Exam HEENT: Neck Supple W Full Motion Chest: Symmetric LUNGS: Other (bibasilar crackles ) Heart: irregularly irregular (AFIB) Abdomen: Soft N/T Extremities: Other (2+ bilateral LE edema ) Neurology: alert, follow commands Assessment Assessment 1. Acute on chronic respiratory failure; multifactorial as noted below. SOA much better 2. Acute on chronic diastolic/systolic CHF with large right pleural effusion: appears compensated 3. NICM; LVEF 45% Recent cath without obstructive disease 3. Arrhythmia: notable for PAFIB, now back in AFIB/flutter bradycardia episode and x1 3sec pause and RVR overnight. Rate in the 80s currently 4. Severe NEGRITO on CKD3 with hyperkalemia: K is no corrected but remains uremic. 5. Severe pulmonary HTN/cor pulmonale 6. COPD with past tobaccoism 7. Transaminitis with coagulopathy: suspect cardiohepatorenal syndrome Recommendations 1. Consistent with tachy-raul syndrome however significant comorbid conditions and poor prognosis precludes aggressive measures such as PPM. Will continue to hold BB and completely off amiodarone. May use lopressor PRN 2. Continue oral lasix. No plans for HD nor thoracentesis. 3. No further eliquis due to significant renal insufficiency and coagulopathy issues and high risk for bleed and falls. Start on baby ASA prior to DC. INR now at 1.5 from 3.5 4. Poor prognosis; recommend Hospice. Daughter is considering, anticipating home with hospice. . Justicifation of Admission Dx: Justifications for Admission: Justification of Admission Dx: Yes MARLEEN CEBALLOS PSYCHIC READER Sep 01, 2019 11:29
--- NOTE | 2019-09-01 11:32 | PDOC3 ---
Discharge Summary Visit Information Date of Admission: August 26, 2019 Date of Discharge: Sep 01, 2019 Admitting Diagnosis Comment: Lower extremity swelling, acute renal failure, hyperkalemia, respiratory failure in an elderly female who has known chronic obstructive pulmonary disease and multiple medical issues. Final Diagnosis Problems Medical Problems: Hyperkalemia -improved Acute systolic and diastolic heart failure -will follow recommendations from workforce consultant regarding diuresis, will continue with Lasix 40 mg and reassess in the a.m. her volume status and hopefully discharge home with referrals for a hospice consult Hypothermia - improved with warming blanket Hypoglycemia - no DM2 history. We will continue to follow we will stop D5 normal saline Acute kidney injury - on CKD - likely vasomotor nephropathy vs cardiorenal syndrome. She and her daughter refuse dialysis, this is appropriate given her chronic conditions Acute hypoxic respiratory failure, multifactorial - CHF, COPD, Acute chronic obstructive pulmonary disease exacerbation. Paroxysmal atrial flutter/fibrillation. Hypothyroidism acquired status post thyroidectomy. Anemia. CAD Dementia - likely vascular with prior TIAs GERD Hyperlipidemia Hypertension Macrocytosis - UTIs Chronic pain Previous tobacco abuse. Moderate aortic regurgitation Brief Hospital Course Allergies Allergies Coded Allergies Type Severity Reaction Last Updated Verified Penicillins Allergy Severe anaphylaxis 06/10/19 Yes Vital Signs Vital Signs Date Time Temp Pulse Resp B/P (MAP) Pulse Ox O2 Delivery O2 Flow Rate FiO2 09/01/19 11:06 98 Nasal Cannula 2.0 09/01/19 07:00 97.9 77 17 120/70 (87) 97.9 Lab Results Laboratory Tests Test 08/30/19 13:50 08/30/19 16:29 08/30/19 20:45 08/31/19 03:50 Prothrombin Time 17.3 SEC (11.7-14.0) Prothromb Time International Ratio 1.5 (0.8-1.1) Sodium Level 130 mmol/L (136-145) 133 mmol/L (136-145) Potassium Level 3.0 mmol/L (3.5-5.1) 3.6 mmol/L (3.5-5.1) Magnesium Level 1.9 mg/dL (1.8-2.4) Glucose (Fingerstick) 84 mg/dL (70-99) 90 mg/dL (70-99) Chloride Level 91 mmol/L (98-107) Carbon Dioxide Level 42 mmol/L (21-32) Anion Gap 0 (6-14) Blood Urea Nitrogen 70 mg/dL (7-20) Creatinine 2.2 mg/dL (0.6-1.0) Estimated GFR (Cockcroft-Gault) 27.2 Glucose Level 67 mg/dL (70-99) Calcium Level 8.1 mg/dL (8.5-10.1) Test 08/31/19 07:27 08/31/19 11:39 08/31/19 16:21 08/31/19 20:38 Glucose (Fingerstick) 86 mg/dL (70-99) 135 mg/dL (70-99) 135 mg/dL (70-99) 81 mg/dL (70-99) Laboratory Tests Test 08/31/19 11:39 08/31/19 16:21 08/31/19 20:38 Glucose (Fingerstick) 135 mg/dL (70-99) 135 mg/dL (70-99) 81 mg/dL (70-99) Brief Hospital Course History of Present Illness History of Present Illness Ms Levin is a 64 yo F w/ PMHx COPD, severe cardiomyopathy, CHF EF 40-45%, coronary artery disease, HLD, GERD, paroxysmal afib, ex-smoker who was brought to ED from home where she lives with her daughter by EMS in respiratory distress with swelling and chest discomfort, She was discharged earlier this year to SNF and was on the ventilator earlier this year. Last hospital stay she was discharged home with home health. recently here on 08/02/2019 for heart failure and hypoxia. Her COVID test at that time was negative She had not felt well for the past few days. She does have cough with some sputum production. Elevated potassium of 6.3 and a BUN of 91 and a creatinine of 3.5. Have contacted her daughter Hallie, and she is made it clear that her mother is requested not to be back on a ventilator. [facility] has asked that we give her "1 more time" if she has cardiac or respiratory arrest. She notes the reason she revoked hospice as she was not comfortable with her mother receiving morphine for pain and for shortness of breath and felt like it was slowly killing her. Consults: Cardiology, Pulmonary and Nephrology. 08/26: Glucose of 15. D50 given x1 ampule with increase to 63, but now persistently low, will change to D10 infusion 08/27: Overnight was transferred to ICU on D10 GTT, glucose came up into the 600s was transferred back to med telemetry. Temp 93 F overnight. Care order placed and D10 continued glucose 60 this morning BUN 99. Creatinine 4.1. More alert today, no complaints. 08/28:Temp normalized. Glucose in 140s. BUN 90, Cr 3.5. Na 130, K 3. AST and ALT now in 100s. UOP 1250 yesterday, stopped lasix. More alert today. 08/29: Patient had 3-second pauses and presented bradycardia temporarily. inside sales consultant recommendations greatly appreciated currently with beta- blockers on hold. I have discussed the plan of care with patient's daughter and we discussed CODE STATUS as well. Daughter now leaning towards allowing patient to have a natural we discussed CODE STATUS which Ms. Purcell has expressed on numerous occasions not only on this hospital stay. She does not want resuscitation maneuvers I have expressed wishes to daughter who is power of state attorney and she has agreed to transition to DNR if she hears it from her mother. We discussed hospice as well as a potential plan of care moving forward given her multiple comorbidities and she has agreed to a consultation once she gets discharged home 08/30: No acute events reported overnight, case discussed with nursing staff patient in no acute distress no complaints during my visit, shortness of breath has definitely improved and edema as well, we will continue with diuresis for the next 24 hours No acute events reported over the last 24 hours of hospital stay. Patient was in good spirits to be discharged home, as stated before on previous days the patient will go with the plan of having hospice consult with them and home. Please refer to discharge med reconciliation for medications. The patient will continue with Lasix 40 mg daily and hopefully she will be able to stay at home with hospice until the patient has a peaceful transition. This is been a recurrent event and has been on hospice before which her power of state attorney has reverted, hopefully she will honor the patient's wishes not to have resuscitation maneuvers and to have a peaceful transition as she is hoping Greater than 35 minutes were spent in the discharge process with the patient counseling coordination of care and arrangement for a safe discharge Physical Exam General: Alert, Cooperative, No acute distress Heart: Regular rate Lungs: Clear to auscultation Abdomen: Soft, nontender Extremities: 2+ edema Skin: No breakdown Assessment Assessment IMAGING REPORT Signed PATIENT: JANNET LEVIN ACCOUNT: [id number] : 1955 LOCATION: ER AGE: 64 SEX: F EXAM STATUS: REG ER ORD. PHYSICIAN: AMPARO GONZALES APRN REASON: pain, fall PROCEDURE: CT HEAD AND CERVICAL SPINE WO CT HEAD AND CERVICAL SPINE WO Date: 08/26/2019 4:28 PM Clinical Indication: Reason: pain, fall / Spl. Instructions: / History: Comparison: 04/02/2019. Technique: 5 mm axial tomographic images were obtained of the head without contrast. These were viewed on brain and bone windows. Noncontrast CT of the cervical spine was performed. Sagittal and coronal reformats were performed and evaluated. One or more of the following dose reduction techniques were utilized: Automated exposure control (AEC), Adjustment of mA and/or kV according to patient size, Use of iterative reconstruction technique such as ASiR, CT scan done according to ALARA and image gently/image wisely HEAD FINDINGS: Mild generalized cerebral and cerebellar volume loss. Mild nonspecific periventricular hypoattenuation, most commonly seen with chronic small vessel ischemic disease. Right cerebellar encephalomalacia. Left basal ganglia lacunar infarct. No intra- or extra-axial mass or fluid collection. No acute hemorrhage. The ventricles are normal in size, shape, and morphology. The cortes-white matter junction is normal. The basilar cisterns are patent. The visualized paranasal sinuses are normal. The visualized portions of the orbits and globes are normal. The mastoid air cells are clear. No aggressive osseous lesion or fracture. CERVICAL SPINE FINDINGS: Straightening of the cervical lordosis. No acute fracture. No aggressive lytic or blastic osseous lesions. Mild multilevel degenerative disc space height loss. Multilevel mild spinal canal stenosis secondary to disc protrusions and marginal osteophytes. Multilevel mild neuroforaminal narrowing secondary to uncovertebral arthrosis. Multilevel mild facet arthrosis. The thyroid gland is atrophic or surgically absent. No cervical lymphadenopathy. Bilateral carotid atherosclerosis. The visualized aerodigestive tract is normal. Large right and mild left pleural effusions. Biapical ground glass opacities. IMPRESSION: 1. No acute intracranial process. 2. No acute cervical spine fracture. 3. Biapical groundglass opacities, which may represent edema or multifocal infection. 4. Large right and mild left pleural effusions. Electronically signed by: Luis Alberto Linares MD (08/26/2019 5:36 PM) [id number] IMAGING REPORT Signed PATIENT: JANNET LEVIN ACCOUNT: [id number] : 1955 LOCATION: [address] [place] [address] AGE: 64 SEX: F EXAM STATUS: ADM IN ORD. PHYSICIAN: AMARA MENG MD REASON: effusion PROCEDURE: PORTABLE CHEST 1V PORTABLE CHEST 1V History: Reason: effusion / Spl. Instructions: / History: Comparison: August 26, 2019 Findings: Moderate layering right pleural effusion. Multifocal bilateral opacities and interstitial thickening, unchanged. Low lung volumes. Small left pleural effusion, unchanged. Unchanged heart size. No pneumothorax. Impression: 1. Moderate layering right and small left pleural effusions, likely unchanged compared to prior allowing for redistribution. 2. Multifocal pulmonary opacities with interstitial thickening, similar compared to prior. Electronically signed by: Clemente Breen DO (08/30/2019 2:42 PM) [id number] Discharge Information Condition at Discharge: Improved Follow Up: Weeks Disposition/Orders: D/C to Home w/ Hospice Scheduled Apixaban (Eliquis) 2.5 Mg Tablet, 2.5 MG PO BID for permanent a fib for 60 Days, #120 Prescribed by: SANJUANITA PEÑA on 04/12/19 1408 Last Action: Continued on 08/27/19 1016 by NAKITA RODRIGUES MD Benzonatate (Tessalon Perle) 100 Mg Capsule, 1 CAP PO TID, #30 Prescribed by: Nieves Villafana APRN on 06/14/18 1207 Last Action: Continued on 08/27/19 1016 by NAKITA RODRIGUES MD Budesonide (Budesonide) 0.5 Mg/2 Ml Ampul.neb, 0.5 MG NEB RTBID for LUNGS for 30 Days, #60 Prescribed by: RUPERTO BAHENA MD on 07/05/19 1439 Last Action: Continued on 08/27/19 1016 by NAKITA RODRIGUES MD Fluticasone Propionate (Flonase Allergy Relief) 9.9 Ml Wink.susp, 2 SPRAYS NS DAILY, #1 Prescribed by: Nieves Villafana APRN on 06/14/18 1207 Furosemide (Lasix) 40 Mg Tablet, 1 TAB PO DAILY for CHF for 30 Days, #30 Ref 0 Prescribed by: CHENG BRUNO MD on 08/07/19 1207 Ipratropium/Albuterol Sulfate (Duoneb 0.5-3(2.5) Mg/3 Ml) 3 Ml Ampul.neb, 3 ML NEB RTQID for COUGH, SOA for 30 Days, #120 Prescribed by: RUPERTO BAHENA MD on 07/05/19 1439 Last Action: Continued on 08/27/19 1016 by NAKITA RODRIGUES MD Lactobacillus Rhamnosus Gg (Culturelle) 1 Each Cap.sprink, 1 CAP PO BID for probiotic for 30 Days, #60 Prescribed by: CHENG BRUNO MD on 08/07/19 1204 Last Action: Continued on 08/27/19 1016 by NAKITA RODRIGUES MD Levothyroxine Sodium (Levothyroxine Sodium) 100 Mcg Tablet, 1 TAB PO DAILY for hypothyroid, #30 Ref 5 (Reported) Entered as Reported by: ROXANNE CHEN on 07/25/19 1702 Last Action: Continued on 08/27/19 1016 by NAKITA RODRIGUES MD Metoprolol Tartrate (Metoprolol Tartrate) 25 Mg Tablet, 25 MG PO BID for htn, hyperthyroid, #60 Prescribed by: SANJUANITA PEÑA on 02/13/19 0749 Last Action: Continued on 08/27/19 1016 by NAKITA RODRIGUES MD Polyethylene Glycol 3350 (Polyethylene Glycol 3350) 17 Gm Powd.pack, 17 GM PO DAILY for constipation for 30 Days, #30 Prescribed by: CHENG BRUNO MD on 09/01/19 1013 Potassium Chloride (Klor-Con M20) 20 Meq Tab.er.prt, 20 MEQ PO BID for POTASSIUM, (Reported) NEW PRESCRIPTIONS Entered as Reported by: Ronald Soni on 04/28/19 1528 Scheduled PRN Albuterol Sulfate (Proair Hfa) 8.5 Gm Hfa.aer.ad, 2.5 MG NEB PRN Q4HRS PRN for SHORTNESS OF BREATH for 30 Days, #60 Prescribed by: RUPERTO BAHENA MD on 07/05/19 1439 Last Action: Continued on 08/27/19 1016 by NAKITA RODRIGUES MD [Nicotine 21MG] 1 PATCH PATCH, 1 PATCH TD PRN DAILY PRN for SMOKING CESSATION MDD 1, #14 Prescribed by: SANJUANITA PEÑA on 07/25/18 0956 Last Action: Converted on 08/27/19 1016 by NAKITA RODRIGUES MD Discontinued Medications Amiodarone Hcl (Amiodarone Hcl) 200 Mg Tablet, 200 MG PO DAILY for HEART RHYTHM for 30 Days, #30 Prescribed by: RUPERTO BAHENA MD on 07/05/19 1439 Last Action: Continued on 08/27/19 1016 by NAKITA RODRIGUES MD Justicifation of Admission Dx: Justifications for Admission: Justification of Admission Dx: Yes CHENG BRUNO MD Sep 01, 2019 11:32
--- NOTE | 2019-09-01 12:13 | PDOC ---
SUBJECTIVE ROS stable , eating Breakfast OBJECTIVE Vital Signs Vital Signs Date Time Temp Pulse Resp B/P (MAP) Pulse Ox O2 Delivery O2 Flow Rate FiO2 09/01/19 11:06 98 Nasal Cannula 2.0 09/01/19 07:00 97.9 77 17 120/70 (87) 97.9 I & 0 Intake and Output 09/01/19 07:00 Intake Total 330 ml Output Total 1700 ml Balance -1370 ml Intake Oral 330 ml Output Urine Total 1700 ml # Voids 2 PHYSICAL EXAM Physical Exam GEN NAD HEENT: OM moist Neck supple LUNGS: diminished bases, non labored Heart: irregularly irregular (AFIB- rate controlled) Abdomen: Soft N/T Extremities: No LE edema Neurology: alert, oriented, follow commands No alex Skin No rash DIAGNOSIS/ASSESSMENT Assessment & Plan NEGRITO-ATN , multiple Hospitalizations Per Dr. Carter's initial Eval Pt is not a candidate for HD Currently renal function improving (08/30) supportive care, avoid nephrotoxins [id number] - Improving, no labs this am CKD stage 3- Cr 1.5 Acute on Chronic CHF - currently compensated , cardiology managing Ac Resp failure- stable, On RA Anemia PAROXYSMAL AFIB- Per Card COMMENT/RELEVANT DATA Meds Current Medications Medications (Trade) Dose Ordered Sig/Karen Start Time Stop Time Status Last Admin Dose Admin Acetaminophen/ Hydrocodone Bitart (Lortab 5/325) 1 tab PRN Q4HRS PRN 09/01/19 04:00 09/01/19 04:29 1 TAB Albuterol Sulfate (Ventolin Neb Soln) 2.5 mg PRN Q4HRS PRN 08/27/19 10:15 Albuterol/ Ipratropium (Duoneb) 3 ml RTQID 08/27/19 12:00 09/01/19 11:05 3 ML Amiodarone HCl (Cordarone) 200 mg DAILY 08/27/19 11:00 08/27/19 13:50 DC Apixaban (Eliquis) 2.5 mg BID 08/27/19 11:00 08/27/19 13:47 DC Aspirin (Ecotrin) 81 mg [id number] 08/28/19 08:00 09/01/19 09:13 81 MG Benzonatate (Tessalon Perle) 100 mg TID 5/29/20 11:00 09/01/19 09:13 100 MG Budesonide (Pulmicort) 0.5 mg RTBID 08/27/19 20:00 09/01/19 07:34 0.5 MG Calcium Gluconate (Calcium Gluconate) 1,000 mg 1X ONCE 08/26/19 18:30 08/26/19 18:32 DC 08/26/19 18:58 1,000 MG Dextrose 1,000 ml @ 20 mls/hr Q24H ONCE 08/27/19 22:00 08/28/19 21:59 DC 08/28/19 06:32 20 MLS/HR Dextrose (Dextrose 50%-Water Syringe) 12.5 gm PRN Q15MIN PRN 08/27/19 10:45 08/28/19 06:32 12.5 GM Dextrose/Sodium Chloride 1,000 ml @ 100 mls/hr Q10H 08/30/19 10:00 08/30/19 16:28 DC 08/30/19 10:00 100 MLS/HR Docusate Sodium (Colace) 100 mg PRN DAILY PRN 08/29/19 15:00 08/29/19 16:20 100 MG Fentanyl Citrate (Fentanyl 2ml Vial) 50 mcg PRN Q1HR PRN 08/26/19 19:00 08/27/19 18:59 DC Furosemide (Lasix) 80 mg 1X ONCE 08/30/19 16:45 08/30/19 16:46 DC 08/30/19 17:11 80 MG Insulin Human Regular (HumuLIN R VIAL) 10 unit 1X ONCE 08/26/19 18:30 08/26/19 18:32 DC 08/26/19 19:07 10 UNIT Lactobacillus Rhamnosus (Culturelle) 1 cap BID 08/27/19 21:00 09/01/19 09:13 1 CAP Lactulose (Lactulose) 20 gm PRN DAILY PRN 08/29/19 15:00 Levothyroxine Sodium (Synthroid) 100 mcg DAILY06 08/27/19 10:30 09/01/19 06:26 100 MCG Metoprolol Tartrate (Lopressor Vial) 5 mg PRN Q6HRS PRN 08/31/19 18:00 Metoprolol Tartrate (Lopressor) 25 mg PRN Q6HRS PRN 08/31/19 18:15 08/31/19 18:26 25 MG Nicotine (Nicoderm Cq 21mg) 1 patch PRN DAILY PRN 08/27/19 09:00 Ondansetron HCl (Zofran) 4 mg PRN Q4HRS PRN 08/27/19 10:15 Polyethylene Glycol (miraLAX PACKET) 17 gm DAILY 08/30/19 09:00 09/01/19 09:00 17 GM Potassium Bicarbonate (Potassium Effervescent Tablet) 40 meq Q2HR 08/30/19 18:00 08/30/19 20:01 DC 08/30/19 20:49 40 MEQ Potassium Chloride/Water 100 ml @ 50 mls/hr Q2H 08/30/19 18:00 08/30/19 16:28 DC Psyllium Hydrophilic Mucilloid (Metamucil Fiber Packet) 1 pkt DAILY 08/30/19 09:00 09/01/19 09:00 1 PKT Sodium Polystyrene Sulfonate (Kayexalate) 30 gm 1X ONCE 08/26/19 18:30 08/26/19 18:32 DC 08/26/19 22:02 30 GM Sodium Bicarbonate (Sodium Bicarb Adult 8.4% Syr) 50 meq 1X ONCE 08/28/19 07:45 08/28/19 07:46 DC 08/28/19 09:31 50 MEQ Lab Laboratory Tests Test 08/31/19 16:21 08/31/19 20:38 Glucose (Fingerstick) 135 mg/dL (70-99) 81 mg/dL (70-99) Results All relevant outside records, renal labs, imaging studies, telemetry/EKG's were reviewed. Justicifation of Admission Dx: Justifications for Admission: Justification of Admission Dx: Yes ALTAGRACIA BLANTON MD Sep 01, 2019 12:13
--- NOTE | 2019-09-01 13:40 | NUR ---
Discharge instructions given to patient. Patient informed of that [facility] will be contacting her. Dr. Bowers requesting the alex stay in place for comfort care and will then be referred to the hospice team. Patient verbalizes understanding.
== END 2019-09-01 14:04 | disposition hospice, home (50) | DRG 682 ==
LOC: ER 15:45 → ED HOLD 18:53 → 6 SOUTH 22:40 → 2 SOUTH 08-27 11:12 → 6 SOUTH 08-27 20:42
PROVIDERS: ADMIT Internal Medicine; ATTEND Internal Medicine
DX: N17.0 Acute kidney failure with tubular necrosis (principal); I50.43 Acute on chronic combined systolic (congestive) and diastolic (congestive) heart failure; J96.21 Acute and chronic respiratory failure with hypoxia; I13.0 Hypertensive heart and chronic kidney disease with heart failure and stage 1 through stage 4 chronic kidney disease, or unspecified chronic kidney disease; I48.92 Unspecified atrial flutter; J44.1 Chronic obstructive pulmonary disease with (acute) exacerbation; N39.0 Urinary tract infection, site not specified; I42.8 Other cardiomyopathies; D64.9 Anemia, unspecified; D75.89 Other specified diseases of blood and blood-forming organs; E16.2 Hypoglycemia, unspecified; E78.00 Pure hypercholesterolemia, unspecified; E78.5 Hyperlipidemia, unspecified; E87.5 Hyperkalemia; E89.0 Postprocedural hypothyroidism; F03.90 Unspecified dementia, unspecified severity, without behavioral disturbance, psychotic disturbance, mood disturbance, and anxiety; F17.200 Nicotine dependence, unspecified, uncomplicated; G89.4 Chronic pain syndrome; I25.10 Atherosclerotic heart disease of native coronary artery without angina pectoris; I27.29 Other secondary pulmonary hypertension; I27.81 Cor pulmonale (chronic); I35.1 Nonrheumatic aortic (valve) insufficiency; I48.0 Paroxysmal atrial fibrillation; K21.9 Gastro-esophageal reflux disease without esophagitis; N18.3 Chronic kidney disease, stage 3 (moderate); R62.7 Adult failure to thrive; Z66 Do not resuscitate; Z82.49 Family history of ischemic heart disease and other diseases of the circulatory system; Z86.73 Personal history of transient ischemic attack (TIA), and cerebral infarction without residual deficits; E05.90 Thyrotoxicosis, unspecified without thyrotoxic crisis or storm; F32.9 Major depressive disorder, single episode, unspecified; F41.9 Anxiety disorder, unspecified; M19.90 Unspecified osteoarthritis, unspecified site; Z87.01 Personal history of pneumonia (recurrent); Z87.440 Personal history of urinary (tract) infections; Z88.0 Allergy status to penicillin; I95.9 Hypotension, unspecified
CPT/HCPCS: 36415; 36600; 70450; 71045; 72072; 72100; 72125; 73110; 80048; 80053; 82805; 82947; 82962; 83735; 83880; 84132; 84295; 84443; 84484; 85007; 85025; 85610; 93005; 94640; 94760; 96374; 96375; J0610; J1815; J1940; J3010; J3480; J3490; J7042; 97110-GP; 97530-GO; 97535-GO; 99285-25; G0378; J7626

== ENCOUNTER 2019-09-11 12:42 | Inpatient (IN) | payer BC ==
[~2019-09-11] VITALS: Ht 165.1 cm; Wt 60.4 kg
[~2019-09-11 12:42] MED LIST changes: +POLY17PO28 PO
[2019-09-11 13:03] LABS: BASE EXCESS ABG 8 mmol/L (-3-3); HCO3 ABG 34 mmol/L (21-28); PCO2 ABG 49 mmHg (35-46); SAT O2 ABG 83 % (92-99)
[2019-09-11 13:04] LABS: PO2 ABG 49 mmHg (65-108)
[2019-09-11 13:05] LABS: FIO2 ABG 50
[2019-09-11 13:20] LABS: BASO # 0.1 x10^3/uL (0.0-0.2); BASO % 1 % (0-3); EOS % 0 % (0-3); HEMATOCRIT 31.8 % (36.0-47.0); HEMOGLOBIN 10.2 g/dL (12.0-15.5); LYMPH # 0.9 x10^3/uL (1.0-4.8); LYMPH % 18 % (24-48); MEAN CORPUSCULAR HEMOGLOBIN 31 pg (25-35); MEAN CORPUSCULAR HGB CONC 32 g/dL (31-37); MEAN CORPUSCULAR VOLUME 96 fL (79-100); MONO # 0.4 x10^3/uL (0.0-1.1); MONO % 7 % (0-9); NEUT % 74 % (31-73); PLATELET COUNT 207 x10^3/uL (140-400); RED BLOOD COUNT 3.33 x10^6/uL (3.50-5.40); RED CELL DISTRIBUTION WIDTH 18.3 % (11.5-14.5); WHITE BLOOD COUNT 5.3 x10^3/uL (4.0-11.0)
[2019-09-11] MEDS ORDERED: IV NORMAL SALINE 1000ML BAG 1,000 ML IV ONE (13:30)
[2019-09-11 13:37] LABS: CALCIUM 8.4 mg/dL (8.5-10.1); CREATININE 2.3 mg/dL (0.6-1.0); GFR 25.8; POTASSIUM 3.7 mmol/L (3.5-5.1)
[2019-09-11 13:44] LABS: ALBUMIN 3.2 g/dL (3.4-5.0); ALBUMIN/GLOBULIN RATIO 0.8 (1.0-1.7); MAGNESIUM 1.8 mg/dL (1.8-2.4); TOTAL BILIRUBIN 0.5 mg/dL (0.2-1.0)
--- NOTE | 2019-09-11 13:53 | RAD ---
Examination: PORTABLE CHEST 1V History: Reason: soa / Spl. Instructions: / History: Comparison/Correlation: 08/30/2019 Portable Chest X-ray Exam Findings: Portable upright frontal view the chest was obtained. Heart size is mildly enlarged. Pulmonary vasculature congestion is present. Right perihilar consolidative appearance is present. Very small pleural effusions suggested. Levo convexity of the spine noted. Impression: Decreased pulmonary vasculature congestion compared to the previous exam with decreased pleural effusions. Perihilar consolidative appearance which may relate to vascular congestion is still seen. Continued follow-up to resolution recommended. Electronically signed by: Guillermo Hall MD (09/11/2019 1:50 PM) [id number]
[2019-09-11 14:42] LABS: PROTHROMBIN TIME PATIENT 15.3 SEC (11.7-14.0)
[2019-09-11 16:30] LABS: BILIRUBIN,URINE NEGATIVE (NEG); CLARITY,URINE CLEAR; COLOR,URINE YELLOW; NITRITE,URINE NEGATIVE (NEG); PROTEIN,URINE NEGATIVE (NEG-TRACE); UROBILINOGEN,URINE 0.2 mg/dL (0.2 mg/dL)
[2019-09-11 16:41] LABS: RBC,URINE RARE /HPF (0-2); WBC,URINE RARE /HPF (0-4)
[2019-09-11 16:42] LABS: BACTERIA,URINE 0 /HPF (0-FEW)
--- NOTE | 2019-09-11 17:05 | RAD ---
Exam: CT head INDICATION: Multiple episodes of passing out today TECHNIQUE: Sequential axial images through the head were obtained without the administration of IV contrast. Comparisons: 08/26/2019 FINDINGS: No focal parenchymal lesion or hemorrhage is identified. There is no midline shift or sulcal effacement. Patchy hypodensity in the periventricular white matter. 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 No acute vascular territory infarction is identified. Toro-white distinction is preserved. The ventricular system is within normal limits without compression hydrocephalus. The basal cisterns are well maintained. The visualized portions of the paranasal sinuses and mastoid air cells are well-pneumatized. No acute fractures. IMPRESSION: Chronic ischemic changes without acute intracranial abnormality. Exposure: One or more of the following in the visualized dose reduction techniques were utilized for this examination: 1. Automated exposure control 2. Adjustment of the MA and/or KV according to patient size Use of iterative of reconstructive technique Electronically signed by: Hermes Bishop MD (09/11/2019 5:03 PM) [id number]
--- NOTE | 2019-09-11 17:34 | PHYS DOC ---
Past Medical History Past Medical History: Arthritis, CAD, CHF, COPD, Dementia, GERD, High Cholesterol, Hypertension, Pneumonia, TIA, UTI Additional Past Medical Histor: chronic left knee pain,bld transfusion Past Surgical History: Other Additional Past Surgical Histo: THYROIDECTOMY Smoking Status: Former Smoker Alcohol Use: None Drug Use: None General Adult EDM: Chief Complaint: SYNCOPE HPI: HPI: Patient is a 64 year old female who was brought here by EMS from home due to multiple episodes of passing out. Patient has been admitted here multiple times due to respiratory failure, she was in [facility] care, her daughter revoked hospice today, called EMS to take her here for evaluation. Patient is very poor historian. Her daughter stated that patient has been having an episode of nausea vomiting diarrhea, today she passed out twice. The daughter called EMS when she passed out a second time. Patient appear to be very anxious when EMS got her. Her oxygen saturation was low in the 85%, they put her on some oxygen and brought her here. There was no report OF cough or fever. Review of Systems: Review of Systems: Constitutional: Denies fever or chills. Positive for generalized weakness. Eyes: Denies change in visual acuity. [] HENT: Denies nasal congestion or sore throat. [] Respiratory: No cough cough or shortness of breath. [] Cardiovascular: Denies chest pain or edema. [] GI: Denies abdominal pain, positive for nausea vomiting diarrhea. : Denies dysuria. [] Musculoskeletal: Denies back pain or joint pain. [] Integument: Denies rash. [] Neurologic: Denies headache, focal weakness or sensory changes. Positive for syncopal episode Endocrine: Denies polyuria or polydipsia. [] Lymphatic: Denies swollen glands. [] Psychiatric: Denies depression or anxiety. [] Heart Score: Risk Factors: Risk Factors: DM, Current or recent (<one month) smoker, HTN, HLP, family history of CAD, obesity. Risk Scores: Score 0 - 3: 2.5% MACE over next 6 weeks - Discharge Home Score 4 - 6: 20.3% MACE over next 6 weeks - Admit for Clinical Observation Score 7 - 10: 72.7% MACE over next 6 weeks - Early Invasive Strategies Current Medications: Current Medications Medications (Trade) Dose Ordered Sig/Karen Start Time Stop Time Status Last Admin Dose Admin Sodium Chloride 1,000 ml @ 1,000 mls/hr 1X ONCE 09/11/19 13:30 09/11/19 14:29 DC 09/11/19 13:47 1,000 MLS/HR Allergies: Allergies: Allergies Coded Allergies Type Severity Reaction Last Updated Verified Penicillins Allergy Severe anaphylaxis 06/10/19 Yes Physical Exam: PE: Constitutional: Well developed, appears older than her age, moderate distress, HENT: Normocephalic, atraumatic, bilateral external ears normal, oropharynx DRIED, no oral exudates, nose normal. [] Eyes: PERRLA, EOMI, [] Neck: Normal range of motion, no tenderness, supple, no stridor. [] Cardiovascular: Irregular rhythm, tachycardia Lungs & Thorax: Bilateral breath sounds with rales at bases, tachypneic Abdomen: Bowel sounds normal, soft, no tenderness, no masses, no pulsatile masses. [] Skin: Warm, dry, no erythema, no rash. [] Back: No tenderness, no CVA tenderness. [] Extremities: No tenderness, no cyanosis, no clubbing, ROM intact, no edema. [] Neurologic: Patient was awake alert moves all extremities however she is disoriented to time place.] Psychologic: Appears very anxious Current Patient Data: Labs: Laboratory Tests Test 09/11/19 12:55 09/11/19 13:02 09/11/19 13:57 09/11/19 16:20 White Blood Count 5.3 x10^3/uL (4.0-11.0) Red Blood Count 3.33 x10^6/uL (3.50-5.40) L Hemoglobin 10.2 g/dL (12.0-15.5) L Hematocrit 31.8 % (36.0-47.0) L Mean Corpuscular Volume 96 fL (79-100) Mean Corpuscular Hemoglobin 31 pg (25-35) Mean Corpuscular Hemoglobin Concent 32 g/dL (31-37) Red Cell Distribution Width 18.3 % (11.5-14.5) H Platelet Count 207 x10^3/uL (140-400) Neutrophils (%) (Auto) 74 % (31-73) H Lymphocytes (%) (Auto) 18 % (24-48) L Monocytes (%) (Auto) 7 % (0-9) Eosinophils (%) (Auto) 0 % (0-3) Basophils (%) (Auto) 1 % (0-3) Neutrophils # (Auto) 4.0 x10^3/uL (1.8-7.7) Lymphocytes # (Auto) 0.9 x10^3/uL (1.0-4.8) L Monocytes # (Auto) 0.4 x10^3/uL (0.0-1.1) Eosinophils # (Auto) 0.0 x10^3/uL (0.0-0.7) Basophils # (Auto) 0.1 x10^3/uL (0.0-0.2) Sodium Level 131 mmol/L (136-145) L Potassium Level 3.7 mmol/L (3.5-5.1) Chloride Level 89 mmol/L (98-107) L Carbon Dioxide Level 33 mmol/L (21-32) H Anion Gap 9 (6-14) Blood Urea Nitrogen 57 mg/dL (7-20) H Creatinine 2.3 mg/dL (0.6-1.0) H Estimated GFR (Cockcroft-Gault) 25.8 BUN/Creatinine Ratio 25 (6-20) H Glucose Level 126 mg/dL (70-99) H Calcium Level 8.4 mg/dL (8.5-10.1) L Magnesium Level 1.8 mg/dL (1.8-2.4) Total Bilirubin 0.5 mg/dL (0.2-1.0) Aspartate Amino Transferase (AST) 32 U/L (15-37) Alanine Aminotransferase (ALT) 38 U/L (14-59) Alkaline Phosphatase 78 U/L (46-116) Troponin I Quantitative < 0.017 ng/mL (0.000-0.055) TQ-Exj-O-Type Natriuretic Peptide 36396 pg/mL (0-124) H Total Protein 7.0 g/dL (6.4-8.2) Albumin 3.2 g/dL (3.4-5.0) L Albumin/Globulin Ratio 0.8 (1.0-1.7) L Lipase 45 U/L (73-393) L O2 Saturation 83 % (92-99) L Arterial Blood pH 7.45 (7.35-7.45) Arterial Blood pCO2 at Patient Temp 49 mmHg (35-46) H Arterial Blood pO2 at Patient Temp 49 mmHg (65-108) *L Arterial Blood HCO3 34 mmol/L (21-28) H Arterial Blood Base Excess 8 mmol/L (-3-3) H FiO2 50 Prothrombin Time 15.3 SEC (11.7-14.0) H Prothrombin Time INR 1.3 (0.8-1.1) H Urine Collection Type U cath Urine Color Yellow Urine Clarity Clear Urine pH 7.0 (<5.0-8.0) Urine Specific [place] 1.010 (1.000-1.030) Urine Protein Negative mg/dL (NEG-TRACE) Urine Glucose (UA) Negative mg/dL (NEG) Urine Ketones (Stick) Negative mg/dL (NEG) Urine Blood Trace (NEG) Urine Nitrite Negative (NEG) Urine Bilirubin Negative (NEG) Urine Urobilinogen Dipstick 0.2 mg/dL (0.2 mg/dL) Urine Leukocyte Esterase Trace (NEG) Urine RBC Rare /HPF (0-2) Urine WBC Rare /HPF (0-4) Urine Squamous Epithelial Cells None /LPF Urine Bacteria 0 /HPF (0-FEW) Laboratory Tests 09/11/19 12:55 Laboratory Tests 09/11/19 12:55 Vital Signs: Vital Signs Date Time Temp Pulse Resp B/P (MAP) Pulse Ox O2 Delivery O2 Flow Rate FiO2 09/11/19 13:10 97.7 86 22 138/70 (92) 96 Venturi Mask 15.0 97.7 EKG: EKG: EKG was done at 1341, heart rate of 75 beats, no ST segment elevation. [] Radiology/Procedures: Radiology/Procedures: [facility] [address] [place] [address] IMAGING REPORT Signed PATIENT: JANNET BOBBY ACCOUNT: [id number] : 1955 LOCATION: ER AGE: 64 SEX: F EXAM STATUS: PRE ER ORD. PHYSICIAN: JOZEF BHAGAT DO REASON: soa PROCEDURE: PORTABLE CHEST 1V Examination: PORTABLE CHEST 1V History: Reason: soa / Spl. Instructions: / History: Comparison/Correlation: 08/30/2019 Portable Chest X-ray Exam Findings: Portable upright frontal view the chest was obtained. Heart size is mildly enlarged. Pulmonary vasculature congestion is present. Right perihilar consolidative appearance is present. Very small pleural effusions suggested. Levo convexity of the spine noted. Impression: Decreased pulmonary vasculature congestion compared to the previous exam with decreased pleural effusions. Perihilar consolidative appearance which may relate to vascular congestion is still seen. Continued follow-up to resolution recommended. Electronically signed by: Guillermo Waggoner MD (09/11/2019 1:50 PM) [id number] DICTATED and SIGNED BY: GUILLERMO WAGGONER MD DATE: 09/11/19 1359 [facility] [address] [place] [address] IMAGING REPORT Signed PATIENT: JANNET BOBBY ACCOUNT: [id number] : 1955 LOCATION: ER AGE: 64 SEX: F EXAM STATUS: REG ER ORD. PHYSICIAN: JOZEF BHAGAT DO REASON: MULTIPLE EPISODES OF PASSING OUT TODAY PROCEDURE: CT HEAD WO CONTRAST Exam: CT head INDICATION: Multiple episodes of passing out today TECHNIQUE: Sequential axial images through the head were obtained without the administration of IV contrast. Comparisons: 08/26/2019 FINDINGS: No focal parenchymal lesion or hemorrhage is identified. There is no midline shift or sulcal effacement. Patchy hypodensity in the periventricular white matter. 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 No acute vascular territory infarction is identified. Toro-white distinction is preserved. The ventricular system is within normal limits without compression hydrocephalus. The basal cisterns are well maintained. The visualized portions of the paranasal sinuses and mastoid air cells are well-pneumatized. No acute fractures. IMPRESSION: Chronic ischemic changes without acute intracranial abnormality. Exposure: One or more of the following in the visualized dose reduction techniques were utilized for this examination: 1. Automated exposure control 2. Adjustment of the MA and/or KV according to patient size Use of iterative of reconstructive technique Electronically signed by: Hermes Soto MD (09/11/2019 5:03 PM) [id number] DICTATED and SIGNED BY: HERMES SOTO MD DATE: 09/11/19 1703 Course & Med Decision Making: Course & Med Decision Making Pertinent Labs and Imaging studies reviewed. (See chart for details) Patient is a 64-year female who was evaluated in ER due to multiple episode of passing out. Patient was found to be dehydrated, patient is a very poor historian, she has been evaluated multiple times for respiratory distress, patient was in hospice care however hospice has been revoked by her family. Because of the uncertainty of the history of the passing out, we will admit her TO THE HOSPITAL FOR FURTHER INVESTIGATION. Dragon Disclaimer: Dragon Disclaimer: This electronic medical record was generated, in whole or in part, using a voice recognition dictation system. Departure Departure Impression: Primary Impression: Syncope Additional Impression: Dehydration Referrals: MICAHEL VALENTIN (PCP) Justicifation of Admission Dx: Justifications for Admission: Justification of Admission Dx: Yes Altered Mental Status: Altered Mental Status JOZEF BHAGAT DO Sep 11, 2019 17:34
--- NOTE | 2019-09-11 18:42 | PDOC1 ---
History and Physical Date of Admission Date of Admission DATE: 09/11/19 TIME: 18:42 Identification/Chief Complaint Chief Complaint Passing out Source Source: Caregiver, Chart review History of Present Illness History of Present Illness Ms Levin is a 64 yo F w/ PMHx COPD, severe cardiomyopathy, CHF EF 40-45%, coronary artery disease, HLD, GERD, paroxysmal afib, ex-smoker who was brought to ED from home where she lives with her daughter by EMS due to multiple episodes of losing consciousness. She is unable to provide any history. Daughter stated that she had an episode of nausea vomiting diarrhea and subsequently pas sed out on the toilet twice. The daughter called EMS when she passed out a second time. Patient has been active with hospice and daughter revoked hospice in order to have ED evaluation for the symptoms. O2 sats 85% on room air. No cough or fever noted, no sick contacts. CXR improved from prior with decreased pleural effusions. ABG with pH 7.45, PCO2 49, PO2 49. WBC 5.3, Hb 10.2, platelets 207, INR 1.3, Na 131, K 3.7, BUN 57, Cr 2.3, Glucose 126, BNP 00439, Albumin 3.2, Trop 0 She was discharged earlier this year to SNF and was on the ventilator earlier this year. Last hospital stay she was discharged home with home health. recently here on 08/02/2019 for heart failure and hypoxia and 2 more times, the most recent was 2 weeks ago for hypothermia and hypoglycemia. Her COVID test at that time was negative Have contacted her daughter Hallie, and she is made it clear that her mother has requested not to be back on a ventilator. [facility] has asked that we give her "1 more time" if she has cardiac or respiratory arrest. She notes the reason she revoked hospice as she was not comfortable with her mother passing out at home. Past Medical History Cardiovascular: AFIB, CHF, HTN, Hyperlipidemia Pulmonary: COPD, Pneumonia, Other CENTRAL NERVOUS SYSTEM: CVA GI: GERD, GI bleed Heme/Onc: Anemia NOS Hepatobiliary: No pertinent hx Psych: Anxiety Musculoskeletal: Other Rheumatologic: No pertinent hx Infectious disease: Other Renal/: Chronic renal insuff, UTI Endocrine: Hyperthyroidism, Hypothyroidism Past Surgical History Past Surgical History: Other Family History Family History: Heart Disease Social History Smoke: No ALCOHOL: none Drugs: None Current Problem List Problem List Problems Medical Problems: (1) Dehydration Status: Acute (2) Syncope Status: Acute Current Medications Current Medications Current Medications Sodium Chloride 1,000 ml @ 1,000 mls/hr 1X ONCE IV Last administered on 09/11/19at 13:47; Start 09/11/19 at 13:30; Stop 09/11/19 at 14:29; Status DC Albuterol/ Ipratropium (Duoneb) 3 ml RTQID NEB ; Start 09/11/19 at 20:00 Budesonide (Pulmicort) 0.5 mg RTBID NEB ; Start 09/11/19 at 20:00 Active Scripts Active Polyethylene Glycol 3350 17 Gm Powd.pack 17 Gm PO DAILY 30 Days Lasix (Furosemide) 40 Mg Tablet 1 Tab PO DAILY 30 Days Culturelle (Lactobacillus Rhamnosus Gg) 1 Each Cap.sprink 1 Cap PO BID 30 Days Budesonide 0.5 Mg/2 Ml Ampul.neb 0.5 Mg NEB RTBID 30 Days Proair Hfa (Albuterol Sulfate) 8.5 Gm Hfa.aer.ad 2.5 Mg NEB PRN Q4HRS PRN 30 Days Duoneb 0.5-3(2.5) Mg/3 Ml (Albuterol/Ipratropium) 3 Ml Ampul.neb 3 Ml NEB RTQID 30 Days Eliquis (Apixaban) 2.5 Mg Tablet 2.5 Mg PO BID 60 Days Metoprolol Tartrate 25 Mg Tablet 25 Mg PO BID [Nicotine 21MG] 1 PATCH Patch 1 Patch TD PRN DAILY PRN MDD 1 Tessalon Perle (Benzonatate) 100 Mg Capsule 1 Cap PO TID Flonase Allergy Relief (Fluticasone Propionate) 9.9 Ml [place].susp 2 Sprays NS DAILY Reported Levothyroxine Sodium 100 Mcg Tablet 1 Tab PO DAILY Klor-Con M20 (Potassium Chloride) 20 Meq Tab.er.prt 20 Meq PO BID NEW PRESCRIPTIONS Allergies Allergies: Coded Allergies: Penicillins (Verified Allergy, Severe, anaphylaxis, 06/10/19) Tolerates merrem ROS Review of System Unable to obtain due to patient confusion Physical Exam General: Alert, Cooperative, No acute distress HEENT: Atraumatic, PERRLA, EOMI, Mucous membr. moist/pink, Other (DIscharge from left eye) Lungs: Other (bibasilar crackles) Heart: S1S2, RRR, no thrills, no rubs Abdomen: Normal bowel sounds, Soft, No tenderness, No hepatosplenomegaly, No masses Rectal Exam: not examined Extremities: No clubbing, No cyanosis, No edema, Normal pulses, No tenderness/swelling Skin: No rashes, No breakdown, No significant lesion Neuro: Normal speech, Strength at 5/5 X4 ext, Normal tone, Sensation intact, Cranial nerves 3-12 NL, Reflexes 2+ Vitals Vitals Vital Signs Date Time Temp Pulse Resp B/P (MAP) Pulse Ox O2 Delivery O2 Flow Rate FiO2 09/11/19 13:10 97.7 86 22 138/70 (92) 96 Venturi Mask 15.0 97.7 Labs Labs Laboratory Tests Test 09/11/19 12:55 09/11/19 13:02 09/11/19 13:57 09/11/19 16:20 White Blood Count 5.3 x10^3/uL (4.0-11.0) Red Blood Count 3.33 x10^6/uL (3.50-5.40) Hemoglobin 10.2 g/dL (12.0-15.5) Hematocrit 31.8 % (36.0-47.0) Mean Corpuscular Volume 96 fL (79-100) Mean Corpuscular Hemoglobin 31 pg (25-35) Mean Corpuscular Hemoglobin Concent 32 g/dL (31-37) Red Cell Distribution Width 18.3 % (11.5-14.5) Platelet Count 207 x10^3/uL (140-400) Neutrophils (%) (Auto) 74 % (31-73) Lymphocytes (%) (Auto) 18 % (24-48) Monocytes (%) (Auto) 7 % (0-9) Eosinophils (%) (Auto) 0 % (0-3) Basophils (%) (Auto) 1 % (0-3) Neutrophils # (Auto) 4.0 x10^3/uL (1.8-7.7) Lymphocytes # (Auto) 0.9 x10^3/uL (1.0-4.8) Monocytes # (Auto) 0.4 x10^3/uL (0.0-1.1) Eosinophils # (Auto) 0.0 x10^3/uL (0.0-0.7) Basophils # (Auto) 0.1 x10^3/uL (0.0-0.2) Sodium Level 131 mmol/L (136-145) Potassium Level 3.7 mmol/L (3.5-5.1) Chloride Level 89 mmol/L (98-107) Carbon Dioxide Level 33 mmol/L (21-32) Anion Gap 9 (6-14) Blood Urea Nitrogen 57 mg/dL (7-20) Creatinine 2.3 mg/dL (0.6-1.0) Estimated GFR (Cockcroft-Gault) 25.8 BUN/Creatinine Ratio 25 (6-20) Glucose Level 126 mg/dL (70-99) Calcium Level 8.4 mg/dL (8.5-10.1) Magnesium Level 1.8 mg/dL (1.8-2.4) Total Bilirubin 0.5 mg/dL (0.2-1.0) Aspartate Amino Transf (AST/SGOT) 32 U/L (15-37) Alanine Aminotransferase (ALT/SGPT) 38 U/L (14-59) Alkaline Phosphatase 78 U/L (46-116) Troponin I Quantitative < 0.017 ng/mL (0.000-0.055) YP-Xls-E-Type Natriuretic Peptide 11867 pg/mL (0-124) Total Protein 7.0 g/dL (6.4-8.2) Albumin 3.2 g/dL (3.4-5.0) Albumin/Globulin Ratio 0.8 (1.0-1.7) Lipase 45 U/L (73-393) O2 Saturation 83 % (92-99) Arterial Blood pH 7.45 (7.35-7.45) Arterial Blood pCO2 at Patient Temp 49 mmHg (35-46) Arterial Blood pO2 at Patient Temp 49 mmHg (65-108) Arterial Blood HCO3 34 mmol/L (21-28) Arterial Blood Base Excess 8 mmol/L (-3-3) FiO2 50 Prothrombin Time 15.3 SEC (11.7-14.0) Prothromb Time International Ratio 1.3 (0.8-1.1) Urine Collection Type U cath Urine Color Yellow Urine Clarity Clear Urine pH 7.0 (<5.0-8.0) Urine Specific [place] 1.010 (1.000-1.030) Urine Protein Negative mg/dL (NEG-TRACE) Urine Glucose (UA) Negative mg/dL (NEG) Urine Ketones (Stick) Negative mg/dL (NEG) Urine Blood Trace (NEG) Urine Nitrite Negative (NEG) Urine Bilirubin Negative (NEG) Urine Urobilinogen Dipstick 0.2 mg/dL (0.2 mg/dL) Urine Leukocyte Esterase Trace (NEG) Urine RBC Rare /HPF (0-2) Urine WBC Rare /HPF (0-4) Urine Squamous Epithelial Cells None /LPF Urine Bacteria 0 /HPF (0-FEW) Laboratory Tests Test 09/11/19 12:55 09/11/19 13:02 09/11/19 13:57 09/11/19 16:20 White Blood Count 5.3 x10^3/uL (4.0-11.0) Red Blood Count 3.33 x10^6/uL (3.50-5.40) Hemoglobin 10.2 g/dL (12.0-15.5) Hematocrit 31.8 % (36.0-47.0) Mean Corpuscular Volume 96 fL (79-100) Mean Corpuscular Hemoglobin 31 pg (25-35) Mean Corpuscular Hemoglobin Concent 32 g/dL (31-37) Red Cell Distribution Width 18.3 % (11.5-14.5) Platelet Count 207 x10^3/uL (140-400) Neutrophils (%) (Auto) 74 % (31-73) Lymphocytes (%) (Auto) 18 % (24-48) Monocytes (%) (Auto) 7 % (0-9) Eosinophils (%) (Auto) 0 % (0-3) Basophils (%) (Auto) 1 % (0-3) Neutrophils # (Auto) 4.0 x10^3/uL (1.8-7.7) Lymphocytes # (Auto) 0.9 x10^3/uL (1.0-4.8) Monocytes # (Auto) 0.4 x10^3/uL (0.0-1.1) Eosinophils # (Auto) 0.0 x10^3/uL (0.0-0.7) Basophils # (Auto) 0.1 x10^3/uL (0.0-0.2) Sodium Level 131 mmol/L (136-145) Potassium Level 3.7 mmol/L (3.5-5.1) Chloride Level 89 mmol/L (98-107) Carbon Dioxide Level 33 mmol/L (21-32) Anion Gap 9 (6-14) Blood Urea Nitrogen 57 mg/dL (7-20) Creatinine 2.3 mg/dL (0.6-1.0) Estimated GFR (Cockcroft-Gault) 25.8 BUN/Creatinine Ratio 25 (6-20) Glucose Level 126 mg/dL (70-99) Calcium Level 8.4 mg/dL (8.5-10.1) Magnesium Level 1.8 mg/dL (1.8-2.4) Total Bilirubin 0.5 mg/dL (0.2-1.0) Aspartate Amino Transf (AST/SGOT) 32 U/L (15-37) Alanine Aminotransferase (ALT/SGPT) 38 U/L (14-59) Alkaline Phosphatase 78 U/L (46-116) Troponin I Quantitative < 0.017 ng/mL (0.000-0.055) JD-Cgi-T-Type Natriuretic Peptide 88525 pg/mL (0-124) Total Protein 7.0 g/dL (6.4-8.2) Albumin 3.2 g/dL (3.4-5.0) Albumin/Globulin Ratio 0.8 (1.0-1.7) Lipase 45 U/L (73-393) O2 Saturation 83 % (92-99) Arterial Blood pH 7.45 (7.35-7.45) Arterial Blood pCO2 at Patient Temp 49 mmHg (35-46) Arterial Blood pO2 at Patient Temp 49 mmHg (65-108) Arterial Blood HCO3 34 mmol/L (21-28) Arterial Blood Base Excess 8 mmol/L (-3-3) FiO2 50 Prothrombin Time 15.3 SEC (11.7-14.0) Prothromb Time International Ratio 1.3 (0.8-1.1) Urine Collection Type U cath Urine Color Yellow Urine Clarity Clear Urine pH 7.0 (<5.0-8.0) Urine Specific [place] 1.010 (1.000-1.030) Urine Protein Negative mg/dL (NEG-TRACE) Urine Glucose (UA) Negative mg/dL (NEG) Urine Ketones (Stick) Negative mg/dL (NEG) Urine Blood Trace (NEG) Urine Nitrite Negative (NEG) Urine Bilirubin Negative (NEG) Urine Urobilinogen Dipstick 0.2 mg/dL (0.2 mg/dL) Urine Leukocyte Esterase Trace (NEG) Urine RBC Rare /HPF (0-2) Urine WBC Rare /HPF (0-4) Urine Squamous Epithelial Cells None /LPF Urine Bacteria 0 /HPF (0-FEW) Images Images CXR: Portable upright frontal view the chest was obtained. Heart size is mildly enlarged. Pulmonary vasculature congestion is present. Right perihilar consolidative a ppearance is present. Very small pleural effusions suggested. Levo convexity of the spine noted. Impression: Decreased pulmonary vasculature congestion compared to the previous exam with decreased pleural effusions. Perihilar consolidative appearance which may relate to vascular congestion is still seen. Continued follow-up to resolution recommended. CT head: No focal parenchymal lesion or hemorrhage is identified. There is no midline shift or sulcal effacement. Patchy hypodensity in the periventricular white matter. 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 No acute vascular territory infarction is identified. Toro-white distinction is preserved. The ventricular system is within normal limits without compression hydrocephalus. The basal cisterns are well maintained. The visualized portions of the paranasal sinuses and mastoid air cells are well- pneumatized. No acute fractures. IMPRESSION: Chronic ischemic changes without acute intracranial abnormality. VTE Prophylaxis Ordered VTE Prophylaxis Devices: No VTE Pharmacological Prophylaxi: Yes Assessment/Plan Assessment/Plan A/P: Acute systolic and diastolic heart failure - will give lasix. Monitor. Acute kidney injury - on CKD - likely vasomotor nephropathy vs cardiorenal syndrome. She and her daughter refuse dialysis, this is appropriate given her chronic conditions Acute hypoxic respiratory failure, multifactorial - CHF, COPD, will wean O2 as tolerated Chronic obstructive pulmonary disease - cont inhalers Paroxysmal atrial flutter/fibrillation - will cont home meds Hypothyroidism acquired status post thyroidectomy. Anemia - stable CAD - stable Dementia - likely vascular with prior TIAs GERD Hyperlipidemia Hypertension Macrocytosis - UTIs - UA clean Chronic pain Previous tobacco abuse. Moderate aortic regurgitation FEN - Cardiac diet PPX - Eliquis DNR/DNI Dispo - inpatient 2 midnights Justicifation of Admission Dx: Justifications for Admission: Justification of Admission Dx: Yes NAKITA RODRIGUES MD Sep 11, 2019 18:42
[2019-09-11 18:50] VITALS: BP 102/63
[2019-09-11] MEDS: BUDESONIDE 0.5 MG/2 ML NEBU. NEB SCH (18:55)
[2019-09-11] MEDS: IPRATRPIUM/ALBUTEROL 0.5/2.5MG 3 ML NEBU. NEB SCH (18:55)
[2019-09-11] MEDS ORDERED: NICOTINE 21MG PATCH. TD PRN (19:41)
[2019-09-11] MEDS ORDERED: IPRATRPIUM/ALBUTEROL 0.5/2.5MG 3 ML NEBU. NEB SCH (20:00)
[2019-09-11] MEDS: LACTOBACILLUS RHAMNOSUS GG 1 CAPSULE. PO SCH (20:50)
[2019-09-11] MEDS: APIXABAN 2.5 MG TABLET. PO SCH (20:50)
[2019-09-11] MEDS: BENZONATATE 100 MG CAPSULE. PO SCH (20:51)
[2019-09-11] MEDS: ERYTHROMYCIN 0.5% OPHTH OINTMENT 1GM TUBE. OU SCH (20:51)
[2019-09-11] MEDS: METOPROLOL TART IMMED RELEASE 25 MG TABLET. PO SCH (20:51)
[2019-09-11 23:00] VITALS: BP 124/66
[2019-09-12 03:00] VITALS: BP 124/66
[2019-09-12] MEDS: LEVOTHYROXINE 100 MCG TABLET PO SCH (06:02)
[2019-09-12 07:00] VITALS: BP 126/71
[2019-09-12] MEDS: BUDESONIDE 0.5 MG/2 ML NEBU. NEB SCH ×2 (07:34→19:53)
[2019-09-12] MEDS: IPRATRPIUM/ALBUTEROL 0.5/2.5MG 3 ML NEBU. NEB SCH ×4 (07:34→19:53)
[2019-09-12] MEDS: METOPROLOL TART IMMED RELEASE 25 MG TABLET. PO SCH ×2 (08:18→20:35)
[2019-09-12] MEDS: BENZONATATE 100 MG CAPSULE. PO SCH ×3 (08:18→20:35)
[2019-09-12] MEDS: ERYTHROMYCIN 0.5% OPHTH OINTMENT 1GM TUBE. OU SCH ×2 (08:19→20:36)
[2019-09-12] MEDS: FUROSEMIDE 40 MG TABLET. PO SCH (08:19)
[2019-09-12] MEDS: APIXABAN 2.5 MG TABLET. PO SCH (08:19)
[2019-09-12] MEDS: LACTOBACILLUS RHAMNOSUS GG 1 CAPSULE. PO SCH ×2 (08:19→20:35)
[2019-09-12] MEDS: POTASSIUM CHLORIDE 20 MEQ TABLET.ER. PO SCH ×2 (08:19→17:25)
[2019-09-12] MEDS: POLYETHYLENE GLYCOL 3350 17 GM PACKET. PO SCH (08:19)
[2019-09-12 11:06] VITALS: BP 125/69
--- NOTE | 2019-09-12 11:43 | PDOC ---
PROGRESS NOTES Chief Complaint Chief Complaint Acute systolic and diastolic heart failure - will give lasix. Monitor. Acute kidney injury - on CKD - likely vasomotor nephropathy vs cardiorenal syndrome. She and her daughter refuse dialysis, this is appropriate given her chronic conditions Acute hypoxic respiratory failure, multifactorial - CHF, COPD, will wean O2 as tolerated Chronic obstructive pulmonary disease - cont inhalers Paroxysmal atrial flutter/fibrillation - will cont home meds Hypothyroidism acquired status post thyroidectomy. Anemia - stable CAD - stable Dementia - likely vascular with prior TIAs GERD Hyperlipidemia Hypertension Macrocytosis - UTIs - UA clean Chronic pain Previous tobacco abuse. Moderate aortic regurgitation History of Present Illness History of Present Illness had been on hospice, will recommend to return at DC Vitals Vitals Vital Signs Date Time Temp Pulse Resp B/P (MAP) Pulse Ox O2 Delivery O2 Flow Rate FiO2 09/12/19 11:06 98.0 75 125/69 (87) 95 Venturi Mask 12.0 98.0 09/11/19 23:00 22 Physical Exam General: Alert, Cooperative, No acute distress Lungs: Other Abdomen: Normal bowel sounds, Soft, No tenderness, No hepatosplenomegaly, No masses Extremities: No clubbing, No cyanosis, No edema, Normal pulses, No tenderness/swelling Skin: No rashes, No breakdown, No significant lesion Labs LABS Laboratory Tests Test 09/11/19 12:55 09/11/19 13:02 09/11/19 13:57 09/11/19 16:20 White Blood Count 5.3 x10^3/uL (4.0-11.0) Red Blood Count 3.33 x10^6/uL (3.50-5.40) Hemoglobin 10.2 g/dL (12.0-15.5) Hematocrit 31.8 % (36.0-47.0) Mean Corpuscular Volume 96 fL (79-100) Mean Corpuscular Hemoglobin 31 pg (25-35) Mean Corpuscular Hemoglobin Concent 32 g/dL (31-37) Red Cell Distribution Width 18.3 % (11.5-14.5) Platelet Count 207 x10^3/uL (140-400) Neutrophils (%) (Auto) 74 % (31-73) Lymphocytes (%) (Auto) 18 % (24-48) Monocytes (%) (Auto) 7 % (0-9) Eosinophils (%) (Auto) 0 % (0-3) Basophils (%) (Auto) 1 % (0-3) Neutrophils # (Auto) 4.0 x10^3/uL (1.8-7.7) Lymphocytes # (Auto) 0.9 x10^3/uL (1.0-4.8) Monocytes # (Auto) 0.4 x10^3/uL (0.0-1.1) Eosinophils # (Auto) 0.0 x10^3/uL (0.0-0.7) Basophils # (Auto) 0.1 x10^3/uL (0.0-0.2) Sodium Level 131 mmol/L (136-145) Potassium Level 3.7 mmol/L (3.5-5.1) Chloride Level 89 mmol/L (98-107) Carbon Dioxide Level 33 mmol/L (21-32) Anion Gap 9 (6-14) Blood Urea Nitrogen 57 mg/dL (7-20) Creatinine 2.3 mg/dL (0.6-1.0) Estimated GFR (Cockcroft-Gault) 25.8 BUN/Creatinine Ratio 25 (6-20) Glucose Level 126 mg/dL (70-99) Calcium Level 8.4 mg/dL (8.5-10.1) Magnesium Level 1.8 mg/dL (1.8-2.4) Total Bilirubin 0.5 mg/dL (0.2-1.0) Aspartate Amino Transf (AST/SGOT) 32 U/L (15-37) Alanine Aminotransferase (ALT/SGPT) 38 U/L (14-59) Alkaline Phosphatase 78 U/L (46-116) Troponin I Quantitative < 0.017 ng/mL (0.000-0.055) PT-Uvc-D-Type Natriuretic Peptide 05067 pg/mL (0-124) Total Protein 7.0 g/dL (6.4-8.2) Albumin 3.2 g/dL (3.4-5.0) Albumin/Globulin Ratio 0.8 (1.0-1.7) Lipase 45 U/L (73-393) O2 Saturation 83 % (92-99) Arterial Blood pH 7.45 (7.35-7.45) Arterial Blood pCO2 at Patient Temp 49 mmHg (35-46) Arterial Blood pO2 at Patient Temp 49 mmHg (65-108) Arterial Blood HCO3 34 mmol/L (21-28) Arterial Blood Base Excess 8 mmol/L (-3-3) FiO2 50 Prothrombin Time 15.3 SEC (11.7-14.0) Prothromb Time International Ratio 1.3 (0.8-1.1) Urine Collection Type U cath Urine Color Yellow Urine Clarity Clear Urine pH 7.0 (<5.0-8.0) Urine Specific [place] 1.010 (1.000-1.030) Urine Protein Negative mg/dL (NEG-TRACE) Urine Glucose (UA) Negative mg/dL (NEG) Urine Ketones (Stick) Negative mg/dL (NEG) Urine Blood Trace (NEG) Urine Nitrite Negative (NEG) Urine Bilirubin Negative (NEG) Urine Urobilinogen Dipstick 0.2 mg/dL (0.2 mg/dL) Urine Leukocyte Esterase Trace (NEG) Urine RBC Rare /HPF (0-2) Urine WBC Rare /HPF (0-4) Urine Squamous Epithelial Cells None /LPF Urine Bacteria 0 /HPF (0-FEW) Assessment and Plan Assessmemt and Plan Problems Medical Problems: (1) Dehydration Status: Acute (2) Syncope Status: Acute Comment Review of Relevant I have reviewed the following items suad (where applicable) has been applied. Labs Laboratory Tests Test 09/11/19 12:55 09/11/19 13:02 09/11/19 13:57 09/11/19 16:20 White Blood Count 5.3 x10^3/uL (4.0-11.0) Red Blood Count 3.33 x10^6/uL (3.50-5.40) Hemoglobin 10.2 g/dL (12.0-15.5) Hematocrit 31.8 % (36.0-47.0) Mean Corpuscular Volume 96 fL (79-100) Mean Corpuscular Hemoglobin 31 pg (25-35) Mean Corpuscular Hemoglobin Concent 32 g/dL (31-37) Red Cell Distribution Width 18.3 % (11.5-14.5) Platelet Count 207 x10^3/uL (140-400) Neutrophils (%) (Auto) 74 % (31-73) Lymphocytes (%) (Auto) 18 % (24-48) Monocytes (%) (Auto) 7 % (0-9) Eosinophils (%) (Auto) 0 % (0-3) Basophils (%) (Auto) 1 % (0-3) Neutrophils # (Auto) 4.0 x10^3/uL (1.8-7.7) Lymphocytes # (Auto) 0.9 x10^3/uL (1.0-4.8) Monocytes # (Auto) 0.4 x10^3/uL (0.0-1.1) Eosinophils # (Auto) 0.0 x10^3/uL (0.0-0.7) Basophils # (Auto) 0.1 x10^3/uL (0.0-0.2) Sodium Level 131 mmol/L (136-145) Potassium Level 3.7 mmol/L (3.5-5.1) Chloride Level 89 mmol/L (98-107) Carbon Dioxide Level 33 mmol/L (21-32) Anion Gap 9 (6-14) Blood Urea Nitrogen 57 mg/dL (7-20) Creatinine 2.3 mg/dL (0.6-1.0) Estimated GFR (Cockcroft-Gault) 25.8 BUN/Creatinine Ratio 25 (6-20) Glucose Level 126 mg/dL (70-99) Calcium Level 8.4 mg/dL (8.5-10.1) Magnesium Level 1.8 mg/dL (1.8-2.4) Total Bilirubin 0.5 mg/dL (0.2-1.0) Aspartate Amino Transf (AST/SGOT) 32 U/L (15-37) Alanine Aminotransferase (ALT/SGPT) 38 U/L (14-59) Alkaline Phosphatase 78 U/L (46-116) Troponin I Quantitative < 0.017 ng/mL (0.000-0.055) IO-Lly-B-Type Natriuretic Peptide 93295 pg/mL (0-124) Total Protein 7.0 g/dL (6.4-8.2) Albumin 3.2 g/dL (3.4-5.0) Albumin/Globulin Ratio 0.8 (1.0-1.7) Lipase 45 U/L (73-393) O2 Saturation 83 % (92-99) Arterial Blood pH 7.45 (7.35-7.45) Arterial Blood pCO2 at Patient Temp 49 mmHg (35-46) Arterial Blood pO2 at Patient Temp 49 mmHg (65-108) Arterial Blood HCO3 34 mmol/L (21-28) Arterial Blood Base Excess 8 mmol/L (-3-3) FiO2 50 Prothrombin Time 15.3 SEC (11.7-14.0) Prothromb Time International Ratio 1.3 (0.8-1.1) Urine Collection Type U cath Urine Color Yellow Urine Clarity Clear Urine pH 7.0 (<5.0-8.0) Urine Specific [place] 1.010 (1.000-1.030) Urine Protein Negative mg/dL (NEG-TRACE) Urine Glucose (UA) Negative mg/dL (NEG) Urine Ketones (Stick) Negative mg/dL (NEG) Urine Blood Trace (NEG) Urine Nitrite Negative (NEG) Urine Bilirubin Negative (NEG) Urine Urobilinogen Dipstick 0.2 mg/dL (0.2 mg/dL) Urine Leukocyte Esterase Trace (NEG) Urine RBC Rare /HPF (0-2) Urine WBC Rare /HPF (0-4) Urine Squamous Epithelial Cells None /LPF Urine Bacteria 0 /HPF (0-FEW) Laboratory Tests Test 09/11/19 12:55 09/11/19 13:02 09/11/19 13:57 09/11/19 16:20 White Blood Count 5.3 x10^3/uL (4.0-11.0) Red Blood Count 3.33 x10^6/uL (3.50-5.40) Hemoglobin 10.2 g/dL (12.0-15.5) Hematocrit 31.8 % (36.0-47.0) Mean Corpuscular Volume 96 fL (79-100) Mean Corpuscular Hemoglobin 31 pg (25-35) Mean Corpuscular Hemoglobin Concent 32 g/dL (31-37) Red Cell Distribution Width 18.3 % (11.5-14.5) Platelet Count 207 x10^3/uL (140-400) Neutrophils (%) (Auto) 74 % (31-73) Lymphocytes (%) (Auto) 18 % (24-48) Monocytes (%) (Auto) 7 % (0-9) Eosinophils (%) (Auto) 0 % (0-3) Basophils (%) (Auto) 1 % (0-3) Neutrophils # (Auto) 4.0 x10^3/uL (1.8-7.7) Lymphocytes # (Auto) 0.9 x10^3/uL (1.0-4.8) Monocytes # (Auto) 0.4 x10^3/uL (0.0-1.1) Eosinophils # (Auto) 0.0 x10^3/uL (0.0-0.7) Basophils # (Auto) 0.1 x10^3/uL (0.0-0.2) Sodium Level 131 mmol/L (136-145) Potassium Level 3.7 mmol/L (3.5-5.1) Chloride Level 89 mmol/L (98-107) Carbon Dioxide Level 33 mmol/L (21-32) Anion Gap 9 (6-14) Blood Urea Nitrogen 57 mg/dL (7-20) Creatinine 2.3 mg/dL (0.6-1.0) Estimated GFR (Cockcroft-Gault) 25.8 BUN/Creatinine Ratio 25 (6-20) Glucose Level 126 mg/dL (70-99) Calcium Level 8.4 mg/dL (8.5-10.1) Magnesium Level 1.8 mg/dL (1.8-2.4) Total Bilirubin 0.5 mg/dL (0.2-1.0) Aspartate Amino Transf (AST/SGOT) 32 U/L (15-37) Alanine Aminotransferase (ALT/SGPT) 38 U/L (14-59) Alkaline Phosphatase 78 U/L (46-116) Troponin I Quantitative < 0.017 ng/mL (0.000-0.055) DV-Msh-F-Type Natriuretic Peptide 19863 pg/mL (0-124) Total Protein 7.0 g/dL (6.4-8.2) Albumin 3.2 g/dL (3.4-5.0) Albumin/Globulin Ratio 0.8 (1.0-1.7) Lipase 45 U/L (73-393) O2 Saturation 83 % (92-99) Arterial Blood pH 7.45 (7.35-7.45) Arterial Blood pCO2 at Patient Temp 49 mmHg (35-46) Arterial Blood pO2 at Patient Temp 49 mmHg (65-108) Arterial Blood HCO3 34 mmol/L (21-28) Arterial Blood Base Excess 8 mmol/L (-3-3) FiO2 50 Prothrombin Time 15.3 SEC (11.7-14.0) Prothromb Time International Ratio 1.3 (0.8-1.1) Urine Collection Type U cath Urine Color Yellow Urine Clarity Clear Urine pH 7.0 (<5.0-8.0) Urine Specific [place] 1.010 (1.000-1.030) Urine Protein Negative mg/dL (NEG-TRACE) Urine Glucose (UA) Negative mg/dL (NEG) Urine Ketones (Stick) Negative mg/dL (NEG) Urine Blood Trace (NEG) Urine Nitrite Negative (NEG) Urine Bilirubin Negative (NEG) Urine Urobilinogen Dipstick 0.2 mg/dL (0.2 mg/dL) Urine Leukocyte Esterase Trace (NEG) Urine RBC Rare /HPF (0-2) Urine WBC Rare /HPF (0-4) Urine Squamous Epithelial Cells None /LPF Urine Bacteria 0 /HPF (0-FEW) Medications Current Medications Sodium Chloride 1,000 ml @ 1,000 mls/hr 1X ONCE IV Last administered on 09/11/19at 13:47; Start 09/11/19 at 13:30; Stop 09/11/19 at 14:29; Status DC Albuterol/ Ipratropium (Duoneb) 3 ml RTQID NEB Last administered on 09/12/19at 11:36; Start 09/11/19 at 20:00 Budesonide (Pulmicort) 0.5 mg RTBID NEB Last administered on 09/12/19at 07:34; Start 09/11/19 at 20:00 Albuterol Sulfate (Ventolin Neb Soln) 2.5 mg PRN Q4HRS PRN NEB SHORTNESS OF BREATH; Start 09/11/19 at 19:45 Apixaban (Eliquis) 2.5 mg BID PO Last administered on 09/12/19at 08:19; Start 09/11/19 at 21:00; Stop 09/12/19 at 11:10; Status DC Benzonatate (Tessalon Perle) 100 mg TID PO Last administered on 09/12/19at 08:18; Start 09/11/19 at 21:00 Furosemide (Lasix) 40 mg DAILY PO Last administered on 09/12/19at 08:19; Start 09/12/19 at 09:00 Albuterol/ Ipratropium (Duoneb) 3 ml RTQID NEB ; Start 09/11/19 at 20:00; Status UNV Lactobacillus Rhamnosus (Culturelle) 1 cap BID PO Last administered on 09/12/19at 08:19; Start 09/11/19 at 21:00 Levothyroxine Sodium (Synthroid) 100 mcg DAILY06 PO Last administered on 09/12/19at 06:02; Start 09/12/19 at 06:00 Metoprolol Tartrate (Lopressor) 25 mg BID PO Last administered on 09/12/19at 08:18; Start 09/11/19 at 21:00 Polyethylene Glycol (miraLAX PACKET) 17 gm DAILY PO Last administered on 09/12/19at 08:19; Start 09/12/19 at 09:00 Potassium Chloride (Klor-Con) 20 meq BIDWMEALS PO Last administered on 09/12/19at 08:19; Start 09/12/19 at 08:00 Nicotine (Nicoderm Cq 21mg) 1 patch PRN DAILY PRN TD SMOKING CESSATION; Start 09/11/19 at 19:41 Erythromycin (Romycin) 0.25 inch BID OU Last administered on 09/12/19at 08:19; Start 09/11/19 at 21:00 Calcium Carbonate/ Glycine (Tums) 500 mg PRN AFTMEALHC PRN PO INDIGESTION; Start 09/12/19 at 11:45; Status UNV Active Scripts Active Polyethylene Glycol 3350 17 Gm Powd.pack 17 Gm PO DAILY 30 Days Lasix (Furosemide) 40 Mg Tablet 1 Tab PO DAILY 30 Days Culturelle (Lactobacillus Rhamnosus Gg) 1 Each Cap.sprink 1 Cap PO BID 30 Days Budesonide 0.5 Mg/2 Ml Ampul.neb 0.5 Mg NEB RTBID 30 Days Proair Hfa (Albuterol Sulfate) 8.5 Gm Hfa.aer.ad 2.5 Mg NEB PRN Q4HRS PRN 30 Days Duoneb 0.5-3(2.5) Mg/3 Ml (Albuterol/Ipratropium) 3 Ml Ampul.neb 3 Ml NEB RTQID 30 Days Eliquis (Apixaban) 2.5 Mg Tablet 2.5 Mg PO BID 60 Days Metoprolol Tartrate 25 Mg Tablet 25 Mg PO BID [Nicotine 21MG] 1 PATCH Patch 1 Patch TD PRN DAILY PRN MDD 1 Tessalon Perle (Benzonatate) 100 Mg Capsule 1 Cap PO TID Flonase Allergy Relief (Fluticasone Propionate) 9.9 Ml [place].susp 2 Sprays NS DAILY Reported Levothyroxine Sodium 100 Mcg Tablet 1 Tab PO DAILY Klor-Con M20 (Potassium Chloride) 20 Meq Tab.er.prt 20 Meq PO BID NEW PRESCRIPTIONS Vitals/I & O Vital Sign - Last 24 Hours 09/11/19 09/11/19 09/11/19 09/11/19 12:53 13:10 14:00 15:00 Temp 97.7 97.7 Pulse 86 64 70 Resp 22 18 18 B/P (MAP) 138/70 (92) 124/62 (82) 117/63 (81) Pulse Ox 96 96 100 O2 Delivery Venturi Mask Venturi Mask Venturi Mask Venturi Mask O2 Flow Rate 15.0 15.0 15.0 15.0 09/11/19 09/11/19 09/11/19 09/11/19 16:00 17:00 18:00 18:50 Temp 97.7 97.7 Pulse 76 74 68 81 Resp 18 18 18 18 B/P (MAP) 115/58 (77) 121/61 (81) 94/52 (66) 102/63 (76) Pulse Ox 100 100 99 O2 Delivery Venturi Mask Venturi Mask Venturi Mask Venturi Mask O2 Flow Rate 15.0 15.0 15.0 09/11/19 09/11/19 09/11/19 09/11/19 18:58 20:00 20:51 23:00 Temp 98.0 98.0 Pulse 81 92 Resp 22 B/P (MAP) 102/63 124/66 (85) Pulse Ox 99 96 O2 Delivery Venturi Mask Venturi Mask Venturi Mask O2 Flow Rate 9.0 12.0 12.0 09/12/19 09/12/19 09/12/19 09/12/19 03:00 07:00 07:34 08:10 Temp 98.0 98.3 98.0 98.3 Pulse 92 78 B/P (MAP) 124/66 (85) 126/71 (89) Pulse Ox 95 95 99 O2 Delivery Venturi Mask Venturi Mask Venturi Mask Venturi Mask O2 Flow Rate 12.0 12.0 9.0 9.0 09/12/19 09/12/19 08:18 11:06 Temp 98.0 98.0 Pulse 78 75 B/P (MAP) 126/71 125/69 (87) Pulse Ox 95 O2 Delivery Venturi Mask O2 Flow Rate 12.0 Intake and Output 09/11/19 09/11/19 09/12/19 15:00 23:00 07:00 Intake Total 150 ml 800 ml Output Total 1 ml Balance 150 ml 799 ml NANI BROWNLEE MD Sep 12, 2019 11:43
[2019-09-12] MEDS ORDERED: CALCIUM CARBONATE 500 MG TAB.CHEW PO PRN (11:45)
[2019-09-12 14:56] VITALS: BP 93/54
[2019-09-12 19:15] VITALS: BP 128/69
[2019-09-12 22:31] VITALS: BP 130/76
[2019-09-13 02:29] VITALS: BP 139/72
[2019-09-13] MEDS: LEVOTHYROXINE 100 MCG TABLET PO SCH (06:02)
[2019-09-13 06:17] VITALS: BP 142/63
[2019-09-13] MEDS: BUDESONIDE 0.5 MG/2 ML NEBU. NEB SCH ×2 (08:01→20:27)
[2019-09-13] MEDS: IPRATRPIUM/ALBUTEROL 0.5/2.5MG 3 ML NEBU. NEB SCH ×4 (08:01→20:27)
[2019-09-13] MEDS: POLYETHYLENE GLYCOL 3350 17 GM PACKET. PO SCH (09:00)
[2019-09-13] MEDS: POTASSIUM CHLORIDE 20 MEQ TABLET.ER. PO SCH ×2 (09:07→18:06)
[2019-09-13] MEDS: LACTOBACILLUS RHAMNOSUS GG 1 CAPSULE. PO SCH ×2 (09:07→20:49)
[2019-09-13] MEDS: BENZONATATE 100 MG CAPSULE. PO SCH ×3 (09:07→20:49)
[2019-09-13] MEDS: FUROSEMIDE 40 MG TABLET. PO SCH (09:08)
[2019-09-13] MEDS: METOPROLOL TART IMMED RELEASE 25 MG TABLET. PO SCH ×2 (09:08→20:49)
[2019-09-13] MEDS: ERYTHROMYCIN 0.5% OPHTH OINTMENT 1GM TUBE. OU SCH ×2 (09:09→20:49)
--- NOTE | 2019-09-13 09:29 | PDOC ---
PROGRESS NOTES Chief Complaint Chief Complaint impression Acute systolic and diastolic heart failure - will give lasix. NICM; LVEF 45% Recent cath without obstructive disease PAFIB/flutter NEGRITO on CKD Severe pulmonary HTN/cor pulmonale Acute kidney injury - on CKD - likely vasomotor nephropathy vs cardiorenal syndrome. She and her daughter refuse dialysis, this is appropriate given her chronic conditions Acute hypoxic respiratory failure, multifactorial - CHF, COPD, will wean O2 as tolerated Chronic obstructive pulmonary disease - cont inhalers Paroxysmal atrial flutter/fibrillation - will cont home meds Hypothyroidism acquired status post thyroidectomy. Anemia - stable CAD - stable Dementia - likely vascular with prior TIAs GERD Hyperlipidemia Hypertension Macrocytosis - UTIs - UA clean Chronic pain Previous tobacco abuse. Moderate aortic regurgitation Chronic ischemic changes without acute intracranial abnormality. CT HEAD 09/10 Patient has been active with hospice and daughter revoked hospice in order to have ED evaluation for the symptoms. O2 sats 85% on room air. No cough or fever noted, no sick contacts. plan cvc bed tele recommend returning to Hospice upon discharge 29 MIN PT EXAM, CHART REVIEW, > 50% OF TIME SPENT WITH exam, chart review, pt care coordination History of Present Illness History of Present Illness had been on hospice, will recommend to return at DC Vitals Vitals Vital Signs Date Time Temp Pulse Resp B/P (MAP) Pulse Ox O2 Delivery O2 Flow Rate FiO2 09/13/19 09:08 82 09/13/19 08:14 96 Nasal Cannula 5.0 09/13/19 06:17 98.3 142/63 (89) 98.3 Physical Exam General: Alert, Cooperative, No acute distress Lungs: Other Abdomen: Normal bowel sounds, Soft, No tenderness, No hepatosplenomegaly, No masses Extremities: No clubbing, No cyanosis, No edema, Normal pulses, No tenderness/swelling Skin: No rashes, No breakdown, No significant lesion Labs LABS Exam: CT head INDICATION: Multiple episodes of passing out today TECHNIQUE: Sequential axial images through the head were obtained without the administration of IV contrast. Comparisons: 08/26/2019 FINDINGS: No focal parenchymal lesion or hemorrhage is identified. There is no midline shift or sulcal effacement. Patchy hypodensity in the periventricular white matter. 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 No acute vascular territory infarction is identified. Toro-white distinction is preserved. The ventricular system is within normal limits without compression hydrocephalus. The basal cisterns are well maintained. The visualized portions of the paranasal sinuses and mastoid air cells are well-pneumatized. No acute fractures. IMPRESSION: Chronic ischemic changes without acute intracranial abnormality. Exposure: One or more of the following in the visualized dose reduction techniques were utilized for this examination: 1. Automated exposure control 2. Adjustment of the MA and/or KV according to patient size Use of iterative of reconstructive technique Electronically signed by: Hermes Soto MD (09/11/2019 5:03 PM) [id number] DICTATED and SIGNED BY: HERMES SOTO MD Assessment and Plan Assessmemt and Plan Problems Medical Problems: (1) Dehydration Status: Acute (2) Syncope Status: Acute Comment Review of Relevant I have reviewed the following items suad (where applicable) has been applied. Labs Laboratory Tests Test 09/11/19 12:55 09/11/19 13:02 09/11/19 13:57 09/11/19 16:20 White Blood Count 5.3 x10^3/uL (4.0-11.0) Red Blood Count 3.33 x10^6/uL (3.50-5.40) Hemoglobin 10.2 g/dL (12.0-15.5) Hematocrit 31.8 % (36.0-47.0) Mean Corpuscular Volume 96 fL (79-100) Mean Corpuscular Hemoglobin 31 pg (25-35) Mean Corpuscular Hemoglobin Concent 32 g/dL (31-37) Red Cell Distribution Width 18.3 % (11.5-14.5) Platelet Count 207 x10^3/uL (140-400) Neutrophils (%) (Auto) 74 % (31-73) Lymphocytes (%) (Auto) 18 % (24-48) Monocytes (%) (Auto) 7 % (0-9) Eosinophils (%) (Auto) 0 % (0-3) Basophils (%) (Auto) 1 % (0-3) Neutrophils # (Auto) 4.0 x10^3/uL (1.8-7.7) Lymphocytes # (Auto) 0.9 x10^3/uL (1.0-4.8) Monocytes # (Auto) 0.4 x10^3/uL (0.0-1.1) Eosinophils # (Auto) 0.0 x10^3/uL (0.0-0.7) Basophils # (Auto) 0.1 x10^3/uL (0.0-0.2) Sodium Level 131 mmol/L (136-145) Potassium Level 3.7 mmol/L (3.5-5.1) Chloride Level 89 mmol/L (98-107) Carbon Dioxide Level 33 mmol/L (21-32) Anion Gap 9 (6-14) Blood Urea Nitrogen 57 mg/dL (7-20) Creatinine 2.3 mg/dL (0.6-1.0) Estimated GFR (Cockcroft-Gault) 25.8 BUN/Creatinine Ratio 25 (6-20) Glucose Level 126 mg/dL (70-99) Calcium Level 8.4 mg/dL (8.5-10.1) Magnesium Level 1.8 mg/dL (1.8-2.4) Total Bilirubin 0.5 mg/dL (0.2-1.0) Aspartate Amino Transf (AST/SGOT) 32 U/L (15-37) Alanine Aminotransferase (ALT/SGPT) 38 U/L (14-59) Alkaline Phosphatase 78 U/L (46-116) Troponin I Quantitative < 0.017 ng/mL (0.000-0.055) MC-Mjv-P-Type Natriuretic Peptide 57576 pg/mL (0-124) Total Protein 7.0 g/dL (6.4-8.2) Albumin 3.2 g/dL (3.4-5.0) Albumin/Globulin Ratio 0.8 (1.0-1.7) Lipase 45 U/L (73-393) O2 Saturation 83 % (92-99) Arterial Blood pH 7.45 (7.35-7.45) Arterial Blood pCO2 at Patient Temp 49 mmHg (35-46) Arterial Blood pO2 at Patient Temp 49 mmHg (65-108) Arterial Blood HCO3 34 mmol/L (21-28) Arterial Blood Base Excess 8 mmol/L (-3-3) FiO2 50 Prothrombin Time 15.3 SEC (11.7-14.0) Prothromb Time International Ratio 1.3 (0.8-1.1) Urine Collection Type U cath Urine Color Yellow Urine Clarity Clear Urine pH 7.0 (<5.0-8.0) Urine Specific [place] 1.010 (1.000-1.030) Urine Protein Negative mg/dL (NEG-TRACE) Urine Glucose (UA) Negative mg/dL (NEG) Urine Ketones (Stick) Negative mg/dL (NEG) Urine Blood Trace (NEG) Urine Nitrite Negative (NEG) Urine Bilirubin Negative (NEG) Urine Urobilinogen Dipstick 0.2 mg/dL (0.2 mg/dL) Urine Leukocyte Esterase Trace (NEG) Urine RBC Rare /HPF (0-2) Urine WBC Rare /HPF (0-4) Urine Squamous Epithelial Cells None /LPF Urine Bacteria 0 /HPF (0-FEW) Medications Current Medications Sodium Chloride 1,000 ml @ 1,000 mls/hr 1X ONCE IV Last administered on 08/29 06/17at 13:47; Start 09/11/19 at 13:30; Stop 09/11/19 at 14:29; Status DC Albuterol/ Ipratropium (Duoneb) 3 ml RTQID NEB Last administered on 09/13/19at 08:01; Start 09/11/19 at 20:00 Budesonide (Pulmicort) 0.5 mg RTBID NEB Last administered on 09/13/19at 08:01; Start 09/11/19 at 20:00 Albuterol Sulfate (Ventolin Neb Soln) 2.5 mg PRN Q4HRS PRN NEB SHORTNESS OF BREATH; Start 09/11/19 at 19:45 Apixaban (Eliquis) 2.5 mg BID PO Last administered on 09/12/19at 08:19; Start 09/11/19 at 21:00; Stop 09/12/19 at 11:10; Status DC Benzonatate (Tessalon Perle) 100 mg TID PO Last administered on 09/13/19at 09:07; Start 09/11/19 at 21:00 Furosemide (Lasix) 40 mg DAILY PO Last administered on 09/13/19at 09:08; Start 09/12/19 at 09:00 Albuterol/ Ipratropium (Duoneb) 3 ml RTQID NEB ; Start 09/11/19 at 20:00; Status UNV Lactobacillus Rhamnosus (Culturelle) 1 cap BID PO Last administered on 6/15/20 at 09:07; Start 09/11/19 at 21:00 Levothyroxine Sodium (Synthroid) 100 mcg DAILY06 PO Last administered on 09/13/19at 06:02; Start 09/12/19 at 06:00 Metoprolol Tartrate (Lopressor) 25 mg BID PO Last administered on 09/13/19at 09:08; Start 09/11/19 at 21:00 Polyethylene Glycol (miraLAX PACKET) 17 gm DAILY PO Last administered on 09/12/19at 08:19; Start 09/12/19 at 09:00 Potassium Chloride (Klor-Con) 20 meq BIDWMEALS PO Last administered on 09/13/19at 09:07; Start 09/12/19 at 08:00 Nicotine (Nicoderm Cq 21mg) 1 patch PRN DAILY PRN TD SMOKING CESSATION; Start 09/11/19 at 19:41 Erythromycin (Romycin) 0.25 inch BID OU Last administered on 09/13/19at 09:09; Start 09/11/19 at 21:00 Calcium Carbonate/ Glycine (Tums) 500 mg PRN AFTMEALHC PRN PO INDIGESTION Last administered on 09/12/19at 11:50; Start 09/12/19 at 11:45 Lorazepam (Ativan Inj) 0.5 mg 1X ONCE IVP Last administered on 09/12/19at 13:20; Start 09/12/19 at 13:00; Stop 09/12/19 at 13:01; Status DC Active Scripts Active Polyethylene Glycol 3350 17 Gm Powd.pack 17 Gm PO DAILY 30 Days Lasix (Furosemide) 40 Mg Tablet 1 Tab PO DAILY 30 Days Culturelle (Lactobacillus Rhamnosus Gg) 1 Each Cap.sprink 1 Cap PO BID 30 Days Budesonide 0.5 Mg/2 Ml Ampul.neb 0.5 Mg NEB RTBID 30 Days Proair Hfa (Albuterol Sulfate) 8.5 Gm Hfa.aer.ad 2.5 Mg NEB PRN Q4HRS PRN 30 Days Duoneb 0.5-3(2.5) Mg/3 Ml (Albuterol/Ipratropium) 3 Ml Ampul.neb 3 Ml NEB RTQID 30 Days Eliquis (Apixaban) 2.5 Mg Tablet 2.5 Mg PO BID 60 Days Metoprolol Tartrate 25 Mg Tablet 25 Mg PO BID [Nicotine 21MG] 1 PATCH Patch 1 Patch TD PRN DAILY PRN MDD 1 Tessalon Perle (Benzonatate) 100 Mg Capsule 1 Cap PO TID Flonase Allergy Relief (Fluticasone Propionate) 9.9 Ml [place].susp 2 Sprays NS DAILY Reported Levothyroxine Sodium 100 Mcg Tablet 1 Tab PO DAILY Klor-Con M20 (Potassium Chloride) 20 Meq Tab.er.prt 20 Meq PO BID NEW PRESCRIPTIONS Vitals/I & O Vital Sign - Last 24 Hours 09/12/19 09/12/19 09/12/19 09/12/19 11:06 11:36 14:56 16:00 Temp 98.0 97.7 98.0 97.7 Pulse 75 76 B/P (MAP) 125/69 (87) 93/54 (67) Pulse Ox 95 99 95 90 O2 Delivery Venturi Mask Venturi Mask Venturi Mask Venturi Mask O2 Flow Rate 12.0 9.0 12.0 15.0 09/12/19 09/12/19 09/12/19 09/12/19 19:15 19:55 19:55 19:55 Temp 97.5 97.5 Pulse 76 B/P (MAP) 128/69 (88) Pulse Ox 100 100 100 O2 Delivery Venturi Mask Nasal Cannula Nasal Cannula Nasal Cannula O2 Flow Rate 12.0 5.0 5.0 5.0 09/12/19 09/12/19 09/13/19 09/13/19 20:35 22:31 02:29 06:17 Temp 98.5 97.9 98.3 98.5 97.9 98.3 Pulse 76 103 114 99 B/P (MAP) 128/69 130/76 (94) 139/72 (94) 142/63 (89) Pulse Ox 100 100 100 O2 Delivery Venturi Mask Venturi Mask Venturi Mask O2 Flow Rate 12.0 12.0 12.0 09/13/19 09/13/19 08:14 09:08 Pulse 82 Pulse Ox 96 O2 Delivery Nasal Cannula O2 Flow Rate 5.0 Intake and Output 09/12/19 09/12/19 09/13/19 15:00 23:00 07:00 Intake Total 600 ml 100 ml 950 ml Balance 600 ml 100 ml 950 ml RUPERTO BAHENA MD Sep 13, 2019 09:29
--- NOTE | 2019-09-13 09:37 | PDOC ---
CHANELL MCCALL CEMENTING BULK MATERIAL OPERATOR 09/13/19 0937: CARDIO Progress Notes Date and Time Date of Service 09/13/19 Time of Evaluation 0915 Subjective Subjective: Other (doesn't want to talk ) Vitals Vitals Vital Signs Date Time Temp Pulse Resp B/P (MAP) Pulse Ox O2 Delivery O2 Flow Rate FiO2 09/13/19 09:08 82 09/13/19 08:14 96 Nasal Cannula 5.0 09/13/19 06:17 98.3 142/63 (89) 98.3 Weight Weight [ ] Input and Output Intake and Output Intake and Output 09/13/19 07:00 Intake Total 1650 ml Balance 1650 ml Intake Oral 1650 ml # Voids 2 # Bowel Movements 3 Physical Exam HEENT: Neck Supple W Full Motion Chest: Symmetric LUNGS: Other (diminished ) Heart: S1S2, RRR, other (2/6 systolic function ) Extremities: Other (2+ bilateral LE edema ) Neurology: alert, oriented, follow commands, other (appears fatigue ) Assessment Assessment Continuum of care Please seen consult from 08/27/19 for further details HPI: This is a 64 yo female who is well known to our service from multiple previous admissions for acute on chronic respiratory failure, acute on chronic CHF, and NEGRITO on CKD. Was discharge earlier this month with Hospice care. Patient was having nausea/vomiting/diarrhea at home. Had a couple of syncopal episodes. On the second episode, daughter decided to call EMS. Daughter made decision to revoke Hospice care and patient was transported to the ED for further evaluation and treatment. Assessment 1. Unresponsive event x2 2. Acute on chronic diastolic/systolic CHF 3. Acute on chronic respiratory failure 4. NICM; LVEF 45% Recent cath without obstructive disease 5. PAFIB/flutter; presently SR with controlled rate 6. NEGRITO on CKD 7. Severe pulmonary HTN/cor pulmonale 8. COPD with past tobaccoism Recommendations ASA therapy. Poor long-term candidate for OAC given anemia, fall risk, and recent coagulopathy. Low-dose metoprolol for rate control Lasix therapy. 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 Would recommend returning to Hospice upon discharge Supportive care Justicifation of Admission Dx: Justifications for Admission: Justification of Admission Dx: Yes GUCCI SCHMITZ MD 09/13/19 1634: CARDIO Progress Notes Assessment Assessment Patient seen and examined. Agree with SLAG WORKER's assessment and plan. Syncope prob secondary to dehydration CXR showed improved vascular congestion compared to prior adm PAF presently SR Agree with DC back to hospice CHANELL MCCALL APRN Sep 13, 2019 09:37 GUCCI SCHMITZ MD Sep 13, 2019 16:34
--- NOTE | 2019-09-13 09:37 | EKG ---
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
[2019-09-13 11:00] VITALS: BP 109/61
--- NOTE | 2019-09-13 12:58 | NUR ---
SS following for discharge planning. SS reviewed pt chart and discussed with pt RN. Pt is from home with family and is currently requiring oxygen. Pt was on services with [facility], ; fax [phone], prior to revoking to come to the hospital. SS met with pt's daughter, Hallie, in room to discuss discharge planning. Pt's daughter reported that pt will return to home with [facility] when medically stable. Pt DNR/DNI. SS will continue to follow for discharge planning.
[2019-09-13] MEDS: ALBUTEROL SULFATE 2.5 MG/3 ML NEBU. NEB PRN ×2 (13:43→23:58)
[2019-09-13 15:00] VITALS: BP 116/64
[2019-09-13 19:20] VITALS: BP 124/66
[2019-09-13 22:49] VITALS: BP 127/71
[2019-09-14 02:39] VITALS: BP 117/61
[2019-09-14] MEDS: LEVOTHYROXINE 100 MCG TABLET PO SCH (05:43)
[2019-09-14 07:00] VITALS: BP 108/66
[2019-09-14] MEDS: IPRATRPIUM/ALBUTEROL 0.5/2.5MG 3 ML NEBU. NEB SCH ×3 (07:48→15:09)
[2019-09-14] MEDS: BUDESONIDE 0.5 MG/2 ML NEBU. NEB SCH (07:48)
[2019-09-14] MEDS: BENZONATATE 100 MG CAPSULE. PO SCH ×2 (08:20→13:22)
[2019-09-14] MEDS: POLYETHYLENE GLYCOL 3350 17 GM PACKET. PO SCH (08:20)
[2019-09-14] MEDS: LACTOBACILLUS RHAMNOSUS GG 1 CAPSULE. PO SCH (08:20)
[2019-09-14] MEDS: ERYTHROMYCIN 0.5% OPHTH OINTMENT 1GM TUBE. OU SCH (08:20)
[2019-09-14] MEDS: FUROSEMIDE 40 MG TABLET. PO SCH (08:21)
[2019-09-14] MEDS: POTASSIUM CHLORIDE 20 MEQ TABLET.ER. PO SCH (08:21)
[2019-09-14] MEDS: METOPROLOL TART IMMED RELEASE 25 MG TABLET. PO SCH (08:21)
--- NOTE | 2019-09-14 09:02 | PDOC ---
PROGRESS NOTES Chief Complaint Chief Complaint DISCHARGE DX Acute systolic and diastolic heart failure - lasix. NICM; LVEF 45% Recent cath without obstructive disease PAFIB/flutter NEGRITO on CKD Severe pulmonary HTN/cor pulmonale Acute kidney injury - on CKD - likely vasomotor nephropathy vs cardiorenal syndrome. She and her daughter refuse dialysis, this is appropriate given her chronic conditions Acute hypoxic respiratory failure, multifactorial - CHF, COPD, will wean O2 as tolerated Chronic obstructive pulmonary disease - cont inhalers Paroxysmal atrial flutter/fibrillation - will cont home meds Hypothyroidism acquired status post thyroidectomy. Anemia - stable CAD - stable Dementia - likely vascular with prior TIAs GERD Hyperlipidemia Hypertension Macrocytosis - UTIs - UA clean Chronic pain Previous tobacco abuse. Moderate aortic regurgitation Chronic ischemic changes without acute intracranial abnormality. CT HEAD 09/10 Patient has been active with hospice and daughter revoked hospice in order to have ED evaluation for the symptoms. O2 sats 85% on room air. No cough or fever noted, no sick contacts. plan cvc bed tele recommend returning to Hospice upon discharge 09/13 34 MIN PT EXAM, CHART REVIEW D/C PLANNING , > 50% OF TIME SPENT WITH exam, chart review, pt care coordination History of Present Illness History of Present Illness had been on hospice, will recommend to return at DC Vitals Vitals Vital Signs Date Time Temp Pulse Resp B/P (MAP) Pulse Ox O2 Delivery O2 Flow Rate FiO2 09/14/19 08:21 90 09/14/19 07:50 100 Nasal Cannula 3.0 09/14/19 07:00 96.1 16 108/66 (80) 96.1 Physical Exam General: Alert, Oriented X3, Cooperative, No acute distress Heart: Regular rate Lungs: Other (DIMINISHED) Abdomen: Normal bowel sounds, Soft, No tenderness, No hepatosplenomegaly, No masses Extremities: No clubbing, No cyanosis, No edema, Normal pulses, No tenderness/swelling Skin: No rashes, No breakdown, No significant lesion Assessment and Plan Assessmemt and Plan Problems Medical Problems: (1) Dehydration Status: Acute (2) Syncope Status: Acute Comment Review of Relevant I have reviewed the following items suad (where applicable) has been applied. Labs Microbiology 09/11/19 Urine Culture - Final, Complete Medications Current Medications Sodium Chloride 1,000 ml @ 1,000 mls/hr 1X ONCE IV Last administered on 09/11/19 13:47; Start 09/11/19 at 13:30; Stop 09/11/19 at 14:29; Status DC Albuterol/ Ipratropium (Duoneb) 3 ml RTQID NEB Last administered on 09/14/19at 07:48; Start 09/11/19 at 20:00 Budesonide (Pulmicort) 0.5 mg RTBID NEB Last administered on 09/14/19at 07:48; Start 09/11/19 at 20:00 Albuterol Sulfate (Ventolin Neb Soln) 2.5 mg PRN Q4HRS PRN NEB SHORTNESS OF BREATH Last administered on 09/13/19at 23:58; Start 09/11/19 at 19:45 Apixaban (Eliquis) 2.5 mg BID PO Last administered on 09/12/19 08:19; Start 09/11/19 at 21:00; Stop 09/12/19 at 11:10; Status DC Benzonatate (Tessalon Perle) 100 mg TID PO Last administered on 09/14/19 08:20; Start 09/11/19 at 21:00 Furosemide (Lasix) 40 mg DAILY PO Last administered on 09/14/19 08:21; Start 09/12/19 at 09:00 Albuterol/ Ipratropium (Duoneb) 3 ml RTQID NEB ; Start 09/11/19 at 20:00; Status UNV Lactobacillus Rhamnosus (Culturelle) 1 cap BID PO Last administered on 09/14/19 08:20; Start 09/11/19 at 21:00 Levothyroxine Sodium (Synthroid) 100 mcg DAILY06 PO Last administered on 09/14/19at 05:43; Start 09/12/19 at 06:00 Metoprolol Tartrate (Lopressor) 25 mg BID PO Last administered on 09/14/19 08:21; Start 09/11/19 at 21:00 Polyethylene Glycol (miraLAX PACKET) 17 gm DAILY PO Last administered on 09/14/19 08:20; Start 09/12/19 at 09:00 Potassium Chloride (Klor-Con) 20 meq BIDWMEALS PO Last administered on 09/14/19 08:21; Start 09/12/19 at 08:00 Nicotine (Nicoderm Cq 21mg) 1 patch PRN DAILY PRN TD SMOKING CESSATION; Start 09/11/19 at 19:41 Erythromycin (Romycin) 0.25 inch BID OU Last administered on 09/14/19at 08:20; Start 09/11/19 at 21:00 Calcium Carbonate/ Glycine (Tums) 500 mg PRN AFTMEALHC PRN PO INDIGESTION Last administered on 09/12/19at 11:50; Start 09/12/19 at 11:45 Lorazepam (Ativan Inj) 0.5 mg 1X ONCE IVP Last administered on 09/12/19at 13:20; Start 09/12/19 at 13:00; Stop 09/12/19 at 13:01; Status DC Active Scripts Active Polyethylene Glycol 3350 17 Gm Powd.pack 17 Gm PO DAILY 30 Days Lasix (Furosemide) 40 Mg Tablet 1 Tab PO DAILY 30 Days Culturelle (Lactobacillus Rhamnosus Gg) 1 Each Cap.sprink 1 Cap PO BID 30 Days Budesonide 0.5 Mg/2 Ml Ampul.neb 0.5 Mg NEB RTBID 30 Days Proair Hfa (Albuterol Sulfate) 8.5 Gm Hfa.aer.ad 2.5 Mg NEB PRN Q4HRS PRN 30 Days Duoneb 0.5-3(2.5) Mg/3 Ml (Albuterol/Ipratropium) 3 Ml Ampul.neb 3 Ml NEB RTQID 30 Days Eliquis (Apixaban) 2.5 Mg Tablet 2.5 Mg PO BID 60 Days Metoprolol Tartrate 25 Mg Tablet 25 Mg PO BID [Nicotine 21MG] 1 PATCH Patch 1 Patch TD PRN DAILY PRN MDD 1 Tessalon Perle (Benzonatate) 100 Mg Capsule 1 Cap PO TID Flonase Allergy Relief (Fluticasone Propionate) 9.9 Ml [place].susp 2 Sprays NS DAILY Reported Levothyroxine Sodium 100 Mcg Tablet 1 Tab PO DAILY Klor-Con M20 (Potassium Chloride) 20 Meq Tab.er.prt 20 Meq PO BID NEW PRESCRIPTIONS Vitals/I & O Vital Sign - Last 24 Hours 09/13/19 09/13/19 09/13/19 09/13/19 09:08 11:00 11:40 15:00 Temp 97.5 97.7 97.5 97.7 Pulse 82 92 86 B/P (MAP) 109/61 (77) 116/64 (81) Pulse Ox 99 100 O2 Delivery Nasal Cannula Nasal Cannula Nasal Cannula O2 Flow Rate 5.0 5.0 5.0 09/13/19 09/13/19 09/13/19 09/13/19 16:14 19:20 20:00 20:30 Temp 98.1 98.1 Pulse 100 B/P (MAP) 124/66 (85) Pulse Ox 93 100 97 O2 Delivery Nasal Cannula Nasal Cannula Nasal Cannula Nasal Cannula O2 Flow Rate 4.0 5.0 3.0 4.0 09/13/19 09/13/19 09/13/19 09/14/19 20:49 22:49 23:10 00:03 Temp 98.1 98.1 Pulse 100 92 B/P (MAP) 124/66 127/71 (89) Pulse Ox 100 100 100 O2 Delivery Nasal Cannula Nasal Cannula Nasal Cannula O2 Flow Rate 5.0 3.0 3.0 09/14/19 09/14/19 09/14/19 09/14/19 02:39 07:00 07:50 08:21 Temp 97.9 96.1 97.9 96.1 Pulse 90 80 90 Resp 16 B/P (MAP) 117/61 (79) 108/66 (80) Pulse Ox 97 100 100 O2 Delivery Nasal Cannula Nasal Cannula Nasal Cannula O2 Flow Rate 3.0 3.0 3.0 Intake and Output 09/13/19 09/13/19 09/14/19 14:59 22:59 06:59 Intake Total 0 ml 100 ml Balance 0 ml 100 ml Nutrition Consultation Dietary Evaluation: Recommendations by RD: Dietary education by RD, Increase Calorie Intake, Protein supplementation Comments: Continue w/cardiac diet w/ground meats as ordered, honor food preferences, provide snacksa as requested REC Ensure TID ([place]) Expected Outcomes/Goals: PO intake to meet >75% est needs Interpretation of weight loss: >5% in 1 month Malnutrition Findings: Body Fat Depletion (Non Severe: Mod to Severe Weight Status: Appropriate RUPERTO BAHENA MD Sep 14, 2019 09:02
--- NOTE | 2019-09-14 10:09 | PDOC ---
CARDIO Progress Notes Date and Time Date of Service 09/14/2019 Time of Evaluation 0900 Subjective Subjective: No Chest Pain, No shortness of breath, Other (feeling sleepy today) Vitals Vitals Vital Signs Date Time Temp Pulse Resp B/P (MAP) Pulse Ox O2 Delivery O2 Flow Rate FiO2 09/14/19 08:21 90 09/14/19 08:00 Nasal Cannula 3.0 09/14/19 07:50 100 09/14/19 07:00 96.1 16 108/66 (80) 96.1 Weight Weight [ ] Input and Output Intake and Output Intake and Output 09/14/19 07:00 Intake Total 100 ml Balance 100 ml Intake Oral 100 ml # Voids 1 # Bowel Movements 2 Microbiology Micro Microbiology 09/11/19 Urine Culture - Final, Complete Physical Exam HEENT: Neck Supple W Full Motion Chest: Symmetric LUNGS: Other (diminished ) Heart: irregularly irregular (AFIB), other (3/6 systolic murmur to LLS border) Abdomen: Soft N/T Extremities: Other (1-2+ bilateral LE edema ) Neurology: alert, oriented, follow commands Assessment Assessment 1. Hypoxic/metabolic encephalopathy 2. Acute on chronic diastolic/systolic CHF: no SOA 3. Acute on chronic respiratory failure 4. NICM; LVEF 45% Recent cath without obstructive disease 5. PAFIB/flutter; currently in AFIB 6. NEGRITO on CKD 7. Severe pulmonary HTN/cor pulmonale 8. COPD with past tobaccoism Recommendations 1. Multiple readmission with DPOA unclear about definitive intentions for healthcare treatment as hospice was discussed significantly from previous admissions. 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 Would recommend hospice care. 2. ASA therapy. Poor long-term candidate for OAC given anemia, fall risk, and recent coagulopathy. 3. No significant bradycardia noted. Continue Low-dose metoprolol for rate control 4. Lasix therapy. Additional PRN. BMP and Mg today Justicifation of Admission Dx: Justifications for Admission: Justification of Admission Dx: Yes MARLEEN CEBALLOS ROLLING MILL OPERATOR Sep 14, 2019 10:09
[2019-09-14 11:00] VITALS: BP 131/66
[2019-09-14 11:16] LABS: CALCIUM 8.7 mg/dL (8.5-10.1); CREATININE 1.9 mg/dL (0.6-1.0); GFR 32.2; MAGNESIUM 1.9 mg/dL (1.8-2.4); POTASSIUM 4.1 mmol/L (3.5-5.1)
--- NOTE | 2019-09-14 12:14 | PDOC3 ---
Discharge Summary Date of Admission: Sep 11, 2019 Date of Discharge: Sep 14, 2019 Follow-Up: 1-2 days Admitting Diagnosis comment: DISCHARGE DX Acute systolic and diastolic heart failure - lasix. NICM; LVEF 45% Recent cath without obstructive disease PAFIB/flutter NEGRITO on CKD Severe pulmonary HTN/cor pulmonale Acute kidney injury - on CKD - likely vasomotor nephropathy vs cardiorenal syndrome. She and her daughter refuse dialysis, this is appropriate given her chronic conditions Acute hypoxic respiratory failure, multifactorial - CHF, COPD, will wean O2 as tolerated Chronic obstructive pulmonary disease - cont inhalers Paroxysmal atrial flutter/fibrillation - will cont home meds Hypothyroidism acquired status post thyroidectomy. Anemia - stable CAD - stable Dementia - likely vascular with prior TIAs GERD Hyperlipidemia Hypertension Macrocytosis - UTIs - UA clean Chronic pain Previous tobacco abuse. Moderate aortic regurgitation Chronic ischemic changes without acute intracranial abnormality. CT HEAD 09/10 Patient has been active with hospice and daughter revoked hospice in order to have ED evaluation for the symptoms. O2 sats 85% on room air. No cough or fever noted, no sick contacts. plan cvc bed tele recommend returning to Hospice upon discharge 09/13 34 MIN PT EXAM, CHART REVIEW D/C PLANNING , > 50% OF TIME SPENT WITH exam, chart review, pt care coordination History of Present Illness History of Present Illness had been on hospice, will recommend to return at DC Vitals Vitals Vital Signs Date Time Temp Pulse Resp B/P (MAP) Pulse Ox O2 Delivery O2 Flow Rate FiO2 09/14/19 08:21 90 09/14/19 07:50 100 Nasal Cannula 3.0 09/14/19 07:00 96.1 16 108/66 (80) 96.1 Physical Exam General: Alert, Oriented X3, Cooperative, No acute distress Heart: Regular rate Lungs: Other (DIMINISHED) Abdomen: Normal bowel sounds, Soft, No tenderness, No hepatosplenomegaly, No masses Extremities: No clubbing, No cyanosis, No edema, Normal pulses, No tenderness/swelling Skin: No rashes, No breakdown, No significant lesion Assessment and Plan Assessmemt and Plan Problems Medical Problems: (1) Dehydration Status: Acute (2) Syncope Status: Acute Comment Review of Relevant I have reviewed the following items suad (where applicable) has been applied. Labs Microbiology 09/11/19 Urine Culture - Final, Complete Medications Current Medications Sodium Chloride 1,000 ml @ 1,000 mls/hr 1X ONCE IV Last administered on 09/11/19at 13:47; Start 09/11/19 at 13:30; Stop 09/11/19 at 14:29; Status DC Albuterol/ Ipratropium (Duoneb) 3 ml RTQID NEB Last administered on 09/14/19at 07:48; Start 09/11/19 at 20:00 Budesonide (Pulmicort) 0.5 mg RTBID NEB Last administered on 09/14/19at 07:48; Start 09/11/19 at 20:00 Albuterol Sulfate (Ventolin Neb Soln) 2.5 mg PRN Q4HRS PRN NEB SHORTNESS OF BREATH Last administered on 09/13/19at 23:58; Start 09/11/19 at 19:45 Apixaban (Eliquis) 2.5 mg BID PO Last administered on 09/12/19at 08:19; Start 09/11/19 at 21:00; Stop 09/12/19 at 11:10; Status DC Benzonatate (Tessalon Perle) 100 mg TID PO Last administered on 09/14/19at 08:20; Start 09/11/19 at 21:00 Furosemide (Lasix) 40 mg DAILY PO Last administered on 09/14/19at 08:21; Start 09/12/19 at 09:00 Albuterol/ Ipratropium (Duoneb) 3 ml RTQID NEB ; Start 09/11/19 at 20:00; Status UNV Lactobacillus Rhamnosus (Culturelle) 1 cap BID PO Last administered on 09/14/19at 08:20; Start 09/11/19 at 21:00 Levothyroxine Sodium (Synthroid) 100 mcg DAILY06 PO Last administered on 09/14/19at 05:43; Start 09/12/19 at 06:00 Metoprolol Tartrate (Lopressor) 25 mg BID PO Last administered on 09/14/19at 08:21; Start 09/11/19 at 21:00 Polyethylene Glycol (miraLAX PACKET) 17 gm DAILY PO Last administered on 09/14/19at 08:20; Start 09/12/19 at 09:00 Potassium Chloride (Klor-Con) 20 meq BIDWMEALS PO Last administered on 09/14/19at 08:21; Start 09/12/19 at 08:00 Nicotine (Nicoderm Cq 21mg) 1 patch PRN DAILY PRN TD SMOKING CESSATION; Start 09/11/19 at 19:41 Erythromycin (Romycin) 0.25 inch BID OU Last administered on 09/14/19at 08:20; Start 09/11/19 at 21:00 Calcium Carbonate/ Glycine (Tums) 500 mg PRN AFTMEALHC PRN PO INDIGESTION Last administered on 09/12/19at 11:50; Start 09/12/19 at 11:45 Lorazepam (Ativan Inj) 0.5 mg 1X ONCE IVP Last administered on 09/12/19at 13:20; Start 09/12/19 at 13:00; Stop 09/12/19 at 13:01; Status DC Active Scripts Active Polyethylene Glycol 3350 17 Gm Powd.pack 17 Gm PO DAILY 30 Days Lasix (Furosemide) 40 Mg Tablet 1 Tab PO DAILY 30 Days Culturelle (Lactobacillus Rhamnosus Gg) 1 Each Cap.sprink 1 Cap PO BID 30 Days Budesonide 0.5 Mg/2 Ml Ampul.neb 0.5 Mg NEB RTBID 30 Days Proair Hfa (Albuterol Sulfate) 8.5 Gm Hfa.aer.ad 2.5 Mg NEB PRN Q4HRS PRN 30 Da ys Duoneb 0.5-3(2.5) Mg/3 Ml (Albuterol/Ipratropium) 3 Ml Ampul.neb 3 Ml NEB RTQID 30 Days Eliquis (Apixaban) 2.5 Mg Tablet 2.5 Mg PO BID 60 Days Metoprolol Tartrate 25 Mg Tablet 25 Mg PO BID [Nicotine 21MG] 1 PATCH Patch 1 Patch TD PRN DAILY PRN MDD 1 Tessalon Perle (Benzonatate) 100 Mg Capsule 1 Cap PO TID Flonase Allergy Relief (Fluticasone Propionate) 9.9 Ml [place].susp 2 Sprays NS DAILY Reported Levothyroxine Sodium 100 Mcg Tablet 1 Tab PO DAILY Klor-Con M20 (Potassium Chloride) 20 Meq Tab.er.prt 20 Meq PO BID FINAL DIAGNOSIS Problems Medical Problems: (1) Dehydration Status: Acute (2) Syncope Status: Acute Brief Hospital Course Ms. Levin is a 64 old [sex] who presented with [ ACUTE CHF] CONDITION AT DISCHARGE: Improved Discharge Medications Current Medications Sodium Chloride 1,000 ml @ 1,000 mls/hr 1X ONCE IV Last administered on 09/11/19at 13:47; Start 09/11/19 at 13:30; Stop 09/11/19 at 14:29; Status DC Albuterol/ Ipratropium (Duoneb) 3 ml RTQID NEB Last administered on 09/14/19at 11:56; Start 09/11/19 at 20:00 Budesonide (Pulmicort) 0.5 mg RTBID NEB Last administered on 09/14/19at 07:48; Start 09/11/19 at 20:00 Albuterol Sulfate (Ventolin Neb Soln) 2.5 mg PRN Q4HRS PRN NEB SHORTNESS OF BREATH Last administered on 09/13/19at 23:58; Start 09/11/19 at 19:45 Apixaban (Eliquis) 2.5 mg BID PO Last administered on 09/12/19at 08:19; Start 09/11/19 at 21:00; Stop 09/12/19 at 11:10; Status DC Benzonatate (Tessalon Perle) 100 mg TID PO Last administered on 09/14/19at 08:20; Start 09/11/19 at 21:00 Furosemide (Lasix) 40 mg DAILY PO Last administered on 09/14/19at 08:21; Start 09/12/19 at 09:00 Albuterol/ Ipratropium (Duoneb) 3 ml RTQID NEB ; Start 09/11/19 at 20:00; Status UNV Lactobacillus Rhamnosus (Culturelle) 1 cap BID PO Last administered on 09/14/19at 08:20; Start 09/11/19 at 21:00 Levothyroxine Sodium (Synthroid) 100 mcg DAILY06 PO Last administered on 09/14/19at 05:43; Start 09/12/19 at 06:00 Metoprolol Tartrate (Lopressor) 25 mg BID PO Last administered on 09/14/19at 08:21; Start 09/11/19 at 21:00 Polyethylene Glycol (miraLAX PACKET) 17 gm DAILY PO Last administered on 09/14/19at 08:20; Start 09/12/19 at 09:00 Potassium Chloride (Klor-Con) 20 meq BIDWMEALS PO Last administered on 09/14/19at 08:21; Start 09/12/19 at 08:00 Nicotine (Nicoderm Cq 21mg) 1 patch PRN DAILY PRN TD SMOKING CESSATION; Start 09/11/19 at 19:41 Erythromycin (Romycin) 0.25 inch BID OU Last administered on 09/14/19at 08:20; Start 09/11/19 at 21:00 Calcium Carbonate/ Glycine (Tums) 500 mg PRN AFTMEALHC PRN PO INDIGESTION Last administered on 09/12/19at 11:50; Start 09/12/19 at 11:45 Lorazepam (Ativan Inj) 0.5 mg 1X ONCE IVP Last administered on 09/12/19at 13:20; Start 09/12/19 at 13:00; Stop 09/12/19 at 13:01; Status DC Active Scripts Active Polyethylene Glycol 3350 17 Gm Powd.pack 17 Gm PO DAILY 30 Days Lasix (Furosemide) 40 Mg Tablet 1 Tab PO DAILY 30 Days Culturelle (Lactobacillus Rhamnosus Gg) 1 Each Cap.sprink 1 Cap PO BID 30 Days Budesonide 0.5 Mg/2 Ml Ampul.neb 0.5 Mg NEB RTBID 30 Days Proair Hfa (Albuterol Sulfate) 8.5 Gm Hfa.aer.ad 2.5 Mg NEB PRN Q4HRS PRN 30 Days Duoneb 0.5-3(2.5) Mg/3 Ml (Albuterol/Ipratropium) 3 Ml Ampul.neb 3 Ml NEB RTQID 30 Days Eliquis (Apixaban) 2.5 Mg Tablet 2.5 Mg PO BID 60 Days Metoprolol Tartrate 25 Mg Tablet 25 Mg PO BID [Nicotine 21MG] 1 PATCH Patch 1 Patch TD PRN DAILY PRN MDD 1 Tessalon Perle (Benzonatate) 100 Mg Capsule 1 Cap PO TID Flonase Allergy Relief (Fluticasone Propionate) 9.9 Ml [place].susp 2 Sprays NS DAILY Reported Levothyroxine Sodium 100 Mcg Tablet 1 Tab PO DAILY Klor-Con M20 (Potassium Chloride) 20 Meq Tab.er.prt 20 Meq PO BID NEW PRESCRIPTIONS Vital Signs Vital Signs Date Time Temp Pulse Resp B/P (MAP) Pulse Ox O2 Delivery O2 Flow Rate FiO2 09/14/19 11:58 100 Nasal Cannula 3.0 09/14/19 11:00 98.0 96 16 131/66 (87) 98.0 Labs Laboratory Tests Test 09/14/19 10:45 Sodium Level 131 mmol/L (136-145) Potassium Level 4.1 mmol/L (3.5-5.1) Chloride Level 90 mmol/L (98-107) Carbon Dioxide Level 37 mmol/L (21-32) Anion Gap 4 (6-14) Blood Urea Nitrogen 55 mg/dL (7-20) Creatinine 1.9 mg/dL (0.6-1.0) Estimated GFR (Cockcroft-Gault) 32.2 Glucose Level 106 mg/dL (70-99) Calcium Level 8.7 mg/dL (8.5-10.1) Magnesium Level 1.9 mg/dL (1.8-2.4) Laboratory Tests Test 09/14/19 10:45 Sodium Level 131 mmol/L (136-145) Potassium Level 4.1 mmol/L (3.5-5.1) Chloride Level 90 mmol/L (98-107) Carbon Dioxide Level 37 mmol/L (21-32) Anion Gap 4 (6-14) Blood Urea Nitrogen 55 mg/dL (7-20) Creatinine 1.9 mg/dL (0.6-1.0) Estimated GFR (Cockcroft-Gault) 32.2 Glucose Level 106 mg/dL (70-99) Calcium Level 8.7 mg/dL (8.5-10.1) Magnesium Level 1.9 mg/dL (1.8-2.4) Allergies Allergies Coded Allergies Type Severity Reaction Last Updated Verified Penicillins Allergy Severe anaphylaxis 06/10/19 Yes Disposition/Orders: D/C to Home w/ Hospice, Other Justicifation of Admission Dx: Justifications for Admission: Justification of Admission Dx: Yes RUPERTO BAHENA MD Sep 14, 2019 12:14
[2019-09-14] MEDS ORDERED: ERYT1OIN6 OU (12:16)
[2019-09-14] MEDS ORDERED: CALC200T23 PO (12:16)
--- NOTE | 2019-09-14 12:17 | NUR ---
LANDRY following for discharge planning. LANDRY reviewed chart and coordinated care with RN and Dr. Hines. Pt to discharge home today, 09/14/2019 with 24 hour care from family and services from [facility] per request of dtr Hallie. LANDRY spoke with pt's dtr at length today as this is the second time the dtr has revoked hospice care from [place] and sent pt to the hospital. Hallie stated she is "scared to administer morphine." LANDRY talked to [facility] about LTC placement with hospice and she refused, stating she wants pt to in her home. Hallie stated she is agreeable to teaching from hospice about how to administer medications and communicated understanding that hospice is not 24 hour care. Hallie agreeable to signing an Outside the Hospital DNR. LANDRY placed the form on pt's chart and Hallie stated she will come the hospital at 1300 to sign. LANDRY phoned and faxed clinicals to [facility], , (fax). LANDRY completed Patient Choice of Vendor form. LANDRY phoned and faxed completed Certificate of Medical Necessity form to [facility] [employer], , (fax). Stretcher transport with 3l 02 arranged for 1500 with hospice re-admission. LANDRY awaiting signed DNR and final discharge orders to fax to hospice. Addendum: 09/14/19 at 1250 by SHANEL ALATORRE LANDRY met with pt, pt's dtr Hallie and pt's youngest dtr. Pt verbalized understanding and acceptance of discharge plan- home with hospice and 24 hour care from family. Pt a/o and able to make needs known. Pt signed DNR and communicated that she wants to allow for a natural and does not want CPR done. SW did provide education to pt and family about eng-of-life and nutrition/hydration. Pt stated she is not hungry and does not want to eat. SW provided support. Final discharge orders faxed to [facility], (fax) No additional SW needs at this time. Addendum: 09/14/19 at 1610 by SHANEL ALATORRE Discharge time changed to 1700 per DME delivery to the home via [facility]. Pt's dtr agreeable and RN notified. LANDRY confirmed 1700 transport with Fire Department.
--- NOTE | 2019-09-14 12:18 | SNU/HH DC ---
DISCHARGE ORDERS DISCHARGE INFORMATION: DISCHARGE DATE: Sep 14, 2019 FINAL DIAGNOSIS Problems Medical Problems: (1) Dehydration Status: Acute (2) Syncope Status: Acute CONDITION ON DISCHARGE: Guarded CODE STATUS: Code Status: DNR/DNI SENIOR LIVING: SNF STAY <30 DAYS: No HOSPICE: HOSPICE: Yes HOSPICE EVAL & TREAT: Yes POST DISCHARGE ORDERS: ACTIVITY ORDERS: Activity as tolerated WEIGHT BEARING STATUS: As tolerated BATHING ORDERS: No Tub Bath until see DIET AFTER DISCHARGE: Cardiac WOUND/INCISION CARE: Other, see below CHECKS AFTER DISCHARGE: CHECKS AFTER DISCHARGE: Check blood press - daily TREATMENT/EQUIPMENT ORDERS: ADAPTIVE EQUIPMENT NEEDED: None, Commode, Front wheeled walker, Raised toilet seat, Wheelchair RESPIRATORY EQUIPMENT NEEDED: Oxygen, Nebulizer Physical Therapy For: Evalulation/Treatment Occupational Therapy For: Evaluation/Treatment Speech Language Pathology For: Evaluation/Treatment DISCHARGE MEDICATIONS: Home Meds Active Scripts Calcium Carbonate (CALCIUM CARBONATE) 200 Mg Tab.chew, 500 MG PO PRN AFTMEALHC PRN for INDIGESTION for 14 Days, #30 TAB.CHEW Prov:RUPERTO BAHENA MD 09/14/19 Erythromycin Base (Erythromycin) 1 Gm Oint...g., 0.25 INCH OU BID for EYE INFECTION for 7 Days, #10 MISC Prov:RUPERTO BAHENA MD 09/14/19 Polyethylene Glycol 3350 (POLYETHYLENE GLYCOL 3350) 17 Gm Powd.pack, 17 GM PO DAILY for constipation for 30 Days, #30 PKT Prov:CHENG BRUNO MD 09/01/19 Furosemide (LASIX) 40 Mg Tablet, 1 TAB PO DAILY for CHF for 30 Days, #30 TAB 0 Refills Prov:CHENG BRUNO MD 08/07/19 Lactobacillus Rhamnosus Gg (CULTURELLE) 1 Each Cap.sprink, 1 CAP PO BID for probiotic for 30 Days, #60 CAP Prov:CHENG BRUNO MD 08/07/19 Budesonide (BUDESONIDE) 0.5 Mg/2 Ml Ampul.neb, 0.5 MG NEB RTBID for LUNGS for 30 Days, #60 EACH Prov:RUPERTO BAHENA MD 07/05/19 Albuterol Sulfate (Proair Hfa) 8.5 Gm Hfa.aer.ad, 2.5 MG NEB PRN Q4HRS PRN for SHORTNESS OF BREATH for 30 Days, #60 EACH Prov:RUPERTO BAHENA MD 07/05/19 Ipratropium/Albuterol Sulfate (DUONEB 0.5-3(2.5) MG/3 ML) 3 Ml Ampul.neb, 3 ML NEB RTQID for COUGH, SOA for 30 Days, #120 EACH Prov:RUPERTO BAHENA MD 07/05/19 Metoprolol Tartrate (METOPROLOL TARTRATE) 25 Mg Tablet, 25 MG PO BID for htn, hyperthyroid, #60 TAB Prov:SANJUANITA PEÑA MD 02/13/19 [Nicotine 21MG] 1 PATCH PATCH No Conflict Check, 1 PATCH TD PRN DAILY PRN for SMOKING CESSATION MDD 1, #14 Prov:SANJUANITA PEÑA MD 07/25/18 Benzonatate (TESSALON PERLE) 100 Mg Capsule, 1 CAP PO TID, #30 CAP Prov:PRO LLOYD APRN 06/14/18 Fluticasone Propionate (Flonase Allergy Relief) 9.9 Ml [place].susp, 2 SPRAYS NS DAILY, #1 BOTTLE Prov:PRO LLOYD APRN 06/14/18 Reported Medications Levothyroxine Sodium (LEVOTHYROXINE SODIUM) 100 Mcg Tablet, 1 TAB PO DAILY for hypothyroid, #30 TAB 5 Refills 07/25/19 Potassium Chloride (KLOR-CON M20) 20 Meq Tab.er.prt, 20 MEQ PO BID for POTASSIUM, TAB.SR NEW PRESCRIPTIONS 04/28/19 Discontinued Scripts Apixaban (ELIQUIS) 2.5 Mg Tablet, 2.5 MG PO BID for permanent a fib for 60 Days, #120 TAB Prov:SANJUANITA PEÑA MD 04/12/19 RUPERTO BAHENA MD Sep 14, 2019 12:18
[2019-09-14] MEDS ORDERED: HYDROcodone/APAP 5/325MG 1 TAB TABLET PO ONE (13:00)
--- NOTE | 2019-09-14 14:53 | NUR ---
Discharge: Teaching verbal and written. Reviewed medications, follow-up, hospice care, ect. 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 Patient to discharge home with [facility]. Patient dressed. All belongings with patient. IV removed without complications, catheter tip in-tact.
--- NOTE | 2019-09-14 17:47 | NUR ---
BRIGITTE tomas assisted patient off of unit via [facility]. Patient on 3L oxygen. Belongings with patient. Daughter notified of pickup
== END 2019-09-14 17:45 | disposition hospice, home (50) | DRG 189 ==
LOC: ER 12:42 → 2 SOUTH 17:30
PROVIDERS: ADMIT Internal Medicine; ATTEND Internal Medicine
DX: J96.21 Acute and chronic respiratory failure with hypoxia (principal); N17.0 Acute kidney failure with tubular necrosis; I50.43 Acute on chronic combined systolic (congestive) and diastolic (congestive) heart failure; G93.41 Metabolic encephalopathy; I13.0 Hypertensive heart and chronic kidney disease with heart failure and stage 1 through stage 4 chronic kidney disease, or unspecified chronic kidney disease; N39.0 Urinary tract infection, site not specified; I48.92 Unspecified atrial flutter; I42.8 Other cardiomyopathies; E86.0 Dehydration; Z66 Do not resuscitate; N18.9 Chronic kidney disease, unspecified; J44.9 Chronic obstructive pulmonary disease, unspecified; K21.9 Gastro-esophageal reflux disease without esophagitis; F03.90 Unspecified dementia, unspecified severity, without behavioral disturbance, psychotic disturbance, mood disturbance, and anxiety; I25.10 Atherosclerotic heart disease of native coronary artery without angina pectoris; D64.9 Anemia, unspecified; F41.9 Anxiety disorder, unspecified; E78.5 Hyperlipidemia, unspecified; D75.89 Other specified diseases of blood and blood-forming organs; I35.1 Nonrheumatic aortic (valve) insufficiency; G89.29 Other chronic pain; M19.90 Unspecified osteoarthritis, unspecified site; E89.0 Postprocedural hypothyroidism; F17.200 Nicotine dependence, unspecified, uncomplicated; E78.00 Pure hypercholesterolemia, unspecified; M25.562 Pain in left knee; I27.29 Other secondary pulmonary hypertension; I27.81 Cor pulmonale (chronic); I48.0 Paroxysmal atrial fibrillation; Z51.5 Encounter for palliative care; Z86.73 Personal history of transient ischemic attack (TIA), and cerebral infarction without residual deficits; Z88.0 Allergy status to penicillin; Z87.01 Personal history of pneumonia (recurrent); Z82.49 Family history of ischemic heart disease and other diseases of the circulatory system
CPT/HCPCS: 36415; 36600; 70450; 71045; 80048; 80053; 81001; 82805; 83690; 83735; 83880; 84484; 85025; 85610; 87086; 93005; 94640; 94760; 96360; 99285; J2060; J7030; G0378; J7613; J7626